=== PATIENT | female | born 1995 | race Caucasian/White ===

== ENCOUNTER 2017-09-03 13:30 | Inpatient (IN) | payer BC, MEDICAID, SELFPAY ==
[2017-09-03] MEDS: 0.9% Saline Lock 10 ML Syringe IV (16:15)
[2017-09-03 16:35] LABS: Hematocrit 32.7 % (37-47); Hemoglobin 10.7 g/dl (12.0-15.0); Mean Corp Hgb Conc 32.7 g/gl (32-36); Mean Corpuscular Hgb 25.9 pg (27.0-32.0); Mean Corpuscular Volume 79.2 fL (81-99); Mean Platelet Vol. 10.6 fl (6.2-12.0); Platelet Count 186 K/mm3 (150-450); RBC Distribution Width CV 16.7 % (11.6-14.6); Red Blood Count 4.13 M/mm3 (4.2-5.4); Scan Indicated on CBC? Y/N NO
[2017-09-03 16:43] VITALS: BMI 47.5
[2017-09-03 16:44] LABS: International Normalized Ratio 0.9; Prothrombin Time (Protime)PT. 12.6 SECONDS (11.7-14.9)
[2017-09-03 16:45] LABS: Partial Thromboplast Time 24.7 Seconds (24.1-36.2)
[2017-09-03 16:48] LABS: Protein, Urine (Random) 32.7 mg/dL (<11.9); Protein:Creat Ratio 151 mg/g CRE (0-200)
[2017-09-03 16:49] LABS: AST(SGOT) 20 U/L (15-37); Alanine Aminotransfer ALT/SGPT 21 U/L (13-56); EST Glomerular Filtration Rate 110 mL/min (>60); Est Glom Filt Rate - Afr Amer 133 mL/min (>60); Estimated Creatinine Clearance 89.78 ml/min; Uric Acid 5.5 mg/dL (2.6-6.0)
[2017-09-03] MEDS: miSOPROStol 25 MCG TABLET VAGINAL ×2 (18:52→23:00)
--- NOTE | 2017-09-03 19:56 | PCM.HP.OB ---
History Date of Admission: 09/03/17 Final JIM: 09/09/17 Gestational age: 39 Weeks and 1 Days History of this : This is a 22 year-old, G [], P [], at 39 weeks gestational age. Medical History: Medical History (Last Updated 09/03/17 @ 20:01 by Noah Campo) Anemia D64.9 Asthma J45.909 Depression F32.9 Inflammatory bowel disease K52.9 anemia Allergies No Known Allergies Allergy (Verified 09/03/17 16:38) Home Medications: Home Medications Vits [Prenatabs FA] 1 tablet PO DAILY 02/09/17 Cetirizine HCl [Zyrtec] 10 mg PO DAILY 09/03/17 Ferrous Sulfate 325 mg PO DAILY@0800 09/03/17 Smoking Status: Former smoker Alcohol: None Number of Fetus(es): 1 Heart Tracin with mod variability, accels TOCO Analysis: Irregular History Past Pregnancies: Past Pregnancies Delivery Date Name GA/Weeks Outcome Route Weight Infant Gender Labor Length Anesthesia Delivery Location Provider FOB Labs: GBS negative see [facility] H&P for complete list Physical Exam General: Alert, Oriented x3 Abdomen: Soft, Non Tender, Non-Distended, Gravid Cervix Dilation (cm): 0.5 Station: -3 Effacement (%): 40 Assessment/Plan All Active Problems Bronchospasm, acute (Acute) 22yo female at 39&1 with gestational hypertension Admit to L&D Induction - vaginal cytotec PreE labs reviewed GBS negative Routine care
[2017-09-04] VITALS (12 sets, daily range): BP systolic 106–133; BP diastolic 62–89; PULSE 94–130; RESP 16–20; TEMP 36.6–38.2; O2SAT 96–99
[2017-09-04] MEDS: Acetaminophen 325 MG Tablet PO ×2 (01:00→09:10)
[2017-09-04] MEDS: miSOPROStol 25 MCG TABLET VAGINAL (03:16)
[2017-09-04] MEDS: Nalbuphine 10 MG/ML Ampul IV ×2 (04:17→10:03)
[2017-09-04] MEDS: Ondansetron 4 MG/2 ML Vial IV ×2 (06:39→17:52)
[2017-09-04] MEDS: 0.9% Saline Lock 10 ML Syringe IV (06:40)
[2017-09-04] MEDS: 0.9% Normal Saline 100 ML IV.SOLN. INTRA-UTER (08:20)
[2017-09-04] MEDS: Lactated Ringers 1,000 ML 50 ML IV ×4 (08:20→16:12)
[2017-09-04] MEDS: Oxytocin 30 units/NS 500 ml 30 UNITS/500 ML IV.SOLN IV (08:20)
--- NOTE | 2017-09-04 08:40 | PCM.PN.BLA ---
Progress Note pt seen at bedside, cervical MEHTA placed for Induction and will start pitocin. pt tolerated well.
--- NOTE | 2017-09-04 12:06 | PCM.PN.BLA ---
Progress Note pt seen at bedside, AROM performed- Clear. /-2. IFM and IUPC placed. Continue pitocin at this time. FHR 135 mod variability category 1 and reactive. Contractions irregular.
--- NOTE | 2017-09-04 17:30 | PN_ITS ---
Progress Note pt seen at bedside and evaluated- /-2 with caput and meconium noted. Pt has had unchanged cervical exam for 5.5 hours- fetus and mother are stable at this time- will recheck patient at 7pm if still no change will proceed with C /S. Pt and were counseled and agree with plan. Will give ANCEF 3g and Zitrhomax 500mg IV x 1.
--- NOTE | 2017-09-04 17:57 | PCM.PN.BLA ---
Progress Note pt with persistent late decelerations, moderate variability despite position changes and pitocin being held. Cervical exam unchanged- will proceed with Primary cs for category 2 FHR and Arrest of dilation.
[2017-09-04] MEDS: Oxytocin 30 units/NS 500 ml 30 UNITS/500 ML IV.SOLN 167 UNITS IV (18:17)
--- NOTE | 2017-09-04 18:47 | PCM.OB.CSR ---
Delivery Classification: NESTOR Final JIM: 09/09/17 Gestational age: 39 Weeks and 2 Days Indications: Arrest of dilation and FHR Category 2 tracing, meconium fluid Indications for : Failure to Progress, Nonreassuring Status Description of Procedure: Surgeon: Dr. Lola Angeles Auditor Tax:CARMEN Pacheco Procedure Performed: Primary Low Transverse section Preoperative diagnosis: Arrest of dilation, Category 2 FHR recurrent late decelerations, Meconium fluid Postoperative diagnosis: same, Live female Findings: Live female infant born at 1817, apgars weight 7lb 12oz. Meconium fluid Anesthesia:epidural Complications: None Estimated blood loss:800 Implantable devices: None Operative note: After informed consent was obtained the patient was taken the operating room she was given spinal anesthesia. She was then placed in the supine position. She was prepped and draped in the normal sterile fashion. Anesthesia was found to be adequate. At this time a Pfannenstiel skin incision was made with a knife was carried down to the underlying layer of the fascia. The fascial incision was then extended laterally using curved Richey scissor. Tensions was then turned to the superior aspect of the fascial edge was grasped with 2 straight [place] clamps tented up and the rectus muscle dissected off sharply using curved Richey scissor. Attention was then turned to the inferior aspect where again [place] clamps were placed in the rectus muscles were tented up and the fascia was dissected off sharply using the curved Richey scissor. Rectus muscles were then in the midline bluntly and peritoneum was entered bluntly. Gentle opposing traction was placed. At this time the vesicouterine peritoneum was identified. Scalpel was used to make a uterine incision in a low transverse fashion. The uterus was then entered bluntly gentle opposing traction was placed to extend this incision. Meconium fluid noted. 's head was brought to the uterine incision was delivered atraumatically. Cord was clamped and cut infant was handed to the waiting nursery team. The Placenta was removed from the uterus. The uterus remained in the abdominal cavity. The uterus was cleared of all clots and debris using a lap. At this time the uterine incision was reapproximated using #1 Vicryl in a running locked fashion followed by a second imbricating layer using 1-0 vicryl. Hemostasis was appreciated. Gutters were cleared of all clots and debris. Uterine incision was reevaluated and noted to be of excellent hemostasis. Bobby placed. At this time the peritoneum was grasped with Kellys reapproximated using #2 Vicryl suture in a running fashion. Muscles then reapproximated using #2 Vicryl in a interrupted mattress suture fashion. Bobby placed. Fascia was then reapproximated using #1 Vicryl in a running fashion. Subcu layer was reapproximated with #2 0 plain gut suture in an interrupted fashion. Subcu layer was closed using 4-0 Monocryl in a subcu fashion. Dry sterile dressing was applied. Instrument lap needle count correct ?2. Anticipated normal postoperative course. Amniotic Membrane Rupture Type: Artificial Amniotic Fluid Description: Moderate meconium Placenta Disposition: Routine to Lab Drain: Anderson to straight drain Cord Entanglement: None Esitmated Blood Loss (ml): 800 Infant Gender: Female (1 minute): 3 (5 minute): 9 - 10 min 9 Delayed cord clamping: No Pre-op Antibiotic Given: - - ancef 3g and zithromax 500mg Pt instructed on risks of surgery: Bleeding, Anesthesia Risks, Infection, Injury to surrounding structure(s) including bowel and bladder Complications: None - Admit VTE Documentation VTE Present on Admission: Yes VTE Mechan Device Prophylaxis: SCD's VTE Pharm Prophylaxis ordered?: Yes
[2017-09-04] MEDS: fentaNYL-bupivacaine (epidural) 100 ML BAG EPIDURAL (20:00)
[2017-09-04] MEDS: DiphenhydrAMINE 25 MG Capsule PO (21:30)
[2017-09-04] MEDS: Lactated Ringers 1,000 ML 100 ML IV (21:33)
[2017-09-05] VITALS (19 sets, daily range): BP systolic 115–126; BP diastolic 68–88; PULSE 70–107; RESP 16–20; TEMP 36.6–37.3; O2SAT 97–100
[2017-09-05] MEDS: Ketorolac 30 MG/ML Syringe IV ×3 (01:13→12:38)
[2017-09-05] MEDS: Nalbuphine 10 MG/ML Ampul 5 MG IV ×2 (02:51→02:58)
[2017-09-05 05:11] LABS: Hematocrit 28.8 % (37-47); Hemoglobin 9.2 g/dl (12.0-15.0); Mean Corp Hgb Conc 31.9 g/gl (32-36); Mean Corpuscular Hgb 25.9 pg (27.0-32.0); Mean Corpuscular Volume 81.1 fL (81-99); Mean Platelet Vol. 10.9 fl (6.2-12.0); Platelet Count 186 K/mm3 (150-450); RBC Distribution Width SD 48.5 fl (35.1-43.9); Red Blood Count 3.55 M/mm3 (4.2-5.4); Scan Indicated on CBC? Y/N NO; White Blood Count 12.9 K/mm3 (4.4-11.0)
[2017-09-05] MEDS: Enoxaparin 40 MG/0.4 ML Syringe SC (06:28)
--- NOTE | 2017-09-05 06:37 | NURSING ---
0430 epidural cath removed, blue tip intake. Pericare done, net panties applied, mom lifting buttocks multiple times.
[2017-09-05] MEDS: Lactated Ringers 1,000 ML 100 ML IV (07:33)
--- NOTE | 2017-09-05 08:02 | PCM.PN.OB ---
Subjective: pt seen at bedside, doing well. pt reports good pain control. lochia mild. Denies CP, SOB, Dizziness. - Physical Exam General: Alert, Oriented x3 Abdomen: Soft, Non-Distended, - - fundus firm. dressing dry and intact Extremities: No Calf Tenderness Vital Signs Temp Pulse Resp BP Pulse Ox 98.2 F 98 16 120/75 100 09/05/17 04:00 09/05/17 06:34 09/05/17 06:34 09/05/17 04:00 09/05/17 06:34 Oxygen Delivery Method Room Air Weight: 110.3 kg Body Mass Index (BMI) 47.5 Intake and Output for Last 24 Hours 09/03/17 09/04/17 09/05/17 23:59 23:59 23:59 Intake Total 500 / 500 1800 / 1800 1563 / 1563 Output Total 600 / 600 1100 / 1100 850 / 850 Balance -100 / -100 700 / 700 713 / 713 Laboratory Tests Past 24 Hrs 09/05/17 04:55 WBC 12.9 H RBC 3.55 L Hgb 9.2 L Hct 28.8 L MCV 81.1 MCH 25.9 L MCHC 31.9 L RDW 17.0 H RDW Differential 48.5 H Plt Count 186 MPV 10.9 Medical Necessity - Tobacco Use Smoking Status: Former smoker Assessment/Plan All Active Problems (Last Updated 09/03/17 @ 20:01 by Noah Campo) Bronchospasm, acute (Acute) POD#1, doing well routine care pain mgmt ambulation joan mari
[2017-09-05] MEDS: DiphenhydrAMINE 25 MG Capsule PO (10:32)
--- NOTE | 2017-09-05 18:40 | NURSING ---
mari removed with 1200 cc
[2017-09-05] MEDS: oxyCODONE 5 MG Tablet PO ×2 (18:46→23:44)
[2017-09-05] MEDS: Ibuprofen 600 MG Tablet PO (20:55)
[2017-09-05] MEDS: Senna/Docusate Sodium 1 Tablet PO (23:44)
[2017-09-06 02:20] VITALS: BP 137/85; PULSE 100; RESP 20; TEMP 35.6
--- NOTE | 2017-09-06 02:29 | NURSING ---
lg amount of urine missed hat
[2017-09-06] MEDS: Ibuprofen 600 MG Tablet PO (05:09)
[2017-09-06] MEDS: oxyCODONE 5 MG Tablet PO (05:09)
[2017-09-06] MEDS: Enoxaparin 40 MG/0.4 ML Syringe SC (05:10)
--- NOTE | 2017-09-06 07:29 | NURSING ---
report given to Sylvain
[2017-09-06 08:57] VITALS: BP 123/77; PULSE 95; RESP 16; TEMP 37.1; O2SAT 99
--- NOTE | 2017-09-06 09:01 | PCM.PN.OB ---
Subjective: pt seen at bedside, doing well. pt reports good pain mgmt. lochia mild. breast feeding. passing flatus. - Physical Exam General: Alert, Oriented x3 Abdomen: Soft, Non-Distended, Gravid, - - fundus firm, dressing dry and intact Extremities: No Calf Tenderness Vital Signs Temp Pulse Resp BP Pulse Ox 98.7 F 95 16 123/77 H 99 09/06/17 08:57 09/06/17 08:57 09/06/17 08:57 09/06/17 08:57 09/06/17 08:57 Oxygen Delivery Method Room Air Weight: 110.3 kg Body Mass Index (BMI) 47.5 Intake and Output for Last 24 Hours 09/04/17 09/05/17 09/06/17 23:59 23:59 23:59 Intake Total 1800 / 1800 3333 / 3333 Output Total 1100 / 1100 3300 / 3300 100 / 100 Balance 700 / 700 33 / 33 -100 / -100 Medical Necessity - Tobacco Use Smoking Status: Former smoker Assessment/Plan All Active Problems (Last Updated 09/03/17 @ 20:01 by Noah Campo) Bronchospasm, acute (Acute) pod#2, doing well routine care pain mgmt ambulation dc home
[2017-09-06 09:09] VITALS: BP 123/77; PULSE 95; RESP 16; TEMP 37.1; O2SAT 99
--- NOTE | 2017-09-06 09:09 | DCINST_ITS ---
Discharge Diet: No Restrictions Discharge Activity: Return to Normal Activity, May Not Drive - for 2 weeks, May not drive while taking narcotic pain medications., May Shower, May Take a Tub Bath - in 7 days. May resume sexual activity in: 4-6 weeks Lifting Restrictions: 20 pounds Additional Activity Instructions:: Nothing in the vagina for 4-6 weeks. You may return to work/school in 6 weeks. Call your doctor if your incision/area has: Continuous Slow Oozing, Sudden Increased Bleeding, Increased Pain/ Swelling, Increased Redness, Foul Smelling Discharge Call your doctor if you observe: Fever of 101 or Higher, Using more than one pad per hour - for 2 hours Suture Line Care: Avoid Pulling/Pushing, Avoid Pinching/Bending Cleanse incision/area with: Keep Dressing Clean & Dry Additional Instructions: If you experience any of the following, contact your healthcare provider. * Bleeding that soaks a pad every hour for 2 hours * Fever 100.4 or higher * Unrelieved incision or abdominal pain * Swelling, redness, discharge or bleeding from your incision or episiotomy site * Your incision begins to separate * Problems urinating (including inability to urinate or burning while urinating) . * Visual changes * Severe headache * Flu-like symptoms * Pain or redness in one of both of your breasts * Pain, warmth, tenderness or swelling in your legs, especially the calf area * Frequent nausea and vomiting * Symptoms of depression or anxiety If you experience any of the following, call 911 or go to the nearest Emergency Room. * Chest pain * Problems breathing * Seizure activity * Partial or complete paralysis of a body part, slurred speech, weakness or drooping of the face, or a sudden inability to walk or hold your balance Allergies/Adverse Reactions: Allergies No Known Allergies Allergy (Verified 09/03/17 16:38) Medications to take at Discharge Vits [Prenatabs FA ] 1 tablet PO DAILY 02/09/17 Cetirizine HCl [Zyrtec] 10 mg PO DAILY 09/03/17 Ferrous Sulfate 325 mg PO DAILY@0800 09/03/17 Ibuprofen [Motrin] 800 mg PO Q8H PRN PRN #30 tab 09/06/17 Oxycodone HCl/Acetaminophen [Percocet 5/325] 1 tab PO Q6H PRN PRN 7 Days #28 tab 09/06/17 Senna/Docusate Sodium [Senokot-S] 1 tab PO DAILY PRN #30 tab 09/06/17 SimETHICONE [Mylicon] 80 mg PO PCHS PRN #30 tab 09/06/17 The following prescriptions were given: Oxycodone HCl/Acetaminophen [Percocet 5/325] 1 tab PO Q6H PRN PRN 7 Days #28 tab PRN Reason: Pain Ibuprofen [Motrin] 800 mg PO Q8H PRN PRN #30 tab PRN Reason: Pain Senna/Docusate Sodium [Senokot-S] 1 tab PO DAILY PRN #30 tab PRN Reason: Constipation SimETHICONE [Mylicon] 80 mg PO PCHS PRN #30 tab PRN Reason: Indigestion/stomach pain Follow-Up: Call to make an appointment with your doctor for an incision check in 1-2 weeks. You will also need a 6 week post- follow up appointment. Please Follow Up With: Lola Angeles MD - Call to make an appointment for an incision check in 1-2 [phone] When: You will need a post- check in 6 weeks. Primary Care Physician: Jackson Peterson III, MD [Primary Care Provider] -
[2017-09-06] MEDS: Acetaminophen 500 MG Tablet 1000 MG PO (10:09)
[2017-09-06 11:13] VITALS: BP 123/70; PULSE 93; RESP 16; TEMP 36.9; O2SAT 100
--- NOTE | 2017-09-06 18:47 | PCM.DC.BLA ---
Discharge Summary Date of Admission: 09/03/17 Date of Discharge: 09/06/17 Summary: This is a 22-year-old female that was admitted to [facility] on September 03, 2017 for induction of labor due to gestational hypertension. Patient received Cytotec and then Pitocin with a Anderson bulb. Patient progressed to 5 cm 80% effaced -2 station. Patient had repetitive late decelerations and arrest of dilatation she underwent a primary low transverse section on 09/04/[address] Monroe. Procedure was uncomplicated. She had normal postoperative course. Blood pressures were well controlled. Patient was discharged home on postoperative day #2 on 09/06/2017.
== END 2017-09-06 10:50 | disposition home or self-care (01) | DRG 765 ==
PROVIDERS: Obstetrics & Gynecology; Admitting Provider Obstetrics & Gynecology; Family Provider Family Medicine; PCP Family Medicine; Visit Provider Obstetrics & Gynecology
DX: O13.4 Gestational [pregnancy-induced] hypertension without significant proteinuria, complicating childbirth (principal); Z68.42 Body mass index [BMI] 45.0-49.9, adult; O62.0 Primary inadequate contractions; O77.0 Labor and delivery complicated by meconium in amniotic fluid; O76 Abnormality in fetal heart rate and rhythm complicating labor and delivery; O99.214 Obesity complicating childbirth; E66.01 Morbid (severe) obesity due to excess calories; O99.02 Anemia complicating childbirth; O99.344 Other mental disorders complicating childbirth; F32.9 Major depressive disorder, single episode, unspecified; F41.9 Anxiety disorder, unspecified; J45.909 Unspecified asthma, uncomplicated; K21.9 Gastro-esophageal reflux disease without esophagitis; Z79.899 Other long term (current) drug therapy; Z87.891 Personal history of nicotine dependence; Z3A.39 39 weeks gestation of pregnancy; Z37.0 Single live birth
CPT/HCPCS: 59025; 59050; 82565; 82570; 84156; 84450; 84460; 84550; 85027; 85610; 85730; 86850; 86900; 99218; J7120; A4216; G0378; J2405

== ENCOUNTER 2017-09-16 11:35 | Outpatient (CLI) | payer BC, MEDICAID, SELFPAY | END 2017-09-16 12:35 | disposition home or self-care (01) | LOC: WPOUT 11:38 → WP 11:38 | PROVIDERS: Family Provider Family Medicine; PCP Family Medicine; Visit Provider Obstetrics & Gynecology | DX: Z39.1 Encounter for care and examination of lactating mother (principal) | CPT/HCPCS: 96152 ==

== ENCOUNTER 2017-09-19 14:10 | Outpatient (CLI) | payer BC, MEDICAID, SELFPAY | END 2017-09-19 15:20 | disposition home or self-care (01) | LOC: WPOUT 14:16 → WP 14:17 | PROVIDERS: Family Provider Family Medicine; PCP Family Medicine; Visit Provider Obstetrics & Gynecology | DX: Z39.1 Encounter for care and examination of lactating mother (principal) | CPT/HCPCS: 96152 ==

== ENCOUNTER 2018-01-11 12:09 | Day surgery (SDC) | payer BC, SELFPAY ==
[2018-01-11] VITALS (9 sets, daily range): BP systolic 103–125; BP diastolic 60–88; PULSE 68–89; RESP 16–18; TEMP 36.3–37.1; O2SAT 93–100; BMI 44.6
--- NOTE | 2018-01-11 12:29 | EKG12_ITS ---
Test Reason : PRE OP Blood Pressure : / mmHG Vent. Rate : 087 BPM Atrial Rate : 087 BPM P-R Int : 158 ms QRS Dur : 072 ms QT Int : 364 ms P-R-T Axes : 022 003 002 degrees QTc Int : 438 ms Normal sinus rhythm Normal ECG No previous ECGs available Confirmed by KASIA FLOYD, CHACHO ([id number]), web editor JAIRO PATEL ([id number]) on 01/15/2018 8:39:31 AM Referred By: Gissel Ceja Confirmed By:CHACHO PEDROZA MD
[2018-01-11 12:46] LABS: Internal QC Validated? YES +Cl - CLEAR BKGD; Pregnancy, Urine Negative Negative
[2018-01-11 13:19] LABS: Hematocrit 37.5 % (37-47); Hemoglobin 12.1 g/dl (12.0-15.0); Mean Corp Hgb Conc 32.3 g/gl (32-36); Mean Corpuscular Hgb 25.8 pg (27.0-32.0); Mean Platelet Vol. 10.5 fl (6.2-12.0); Platelet Count 258 K/mm3 (150-450); RBC Distribution Width CV 15.5 % (11.6-14.6); RBC Distribution Width SD 44.7 fl (35.1-43.9); Red Blood Count 4.69 M/mm3 (4.2-5.4); White Blood Count 7.1 K/mm3 (4.4-11.0)
[2018-01-11 13:20] LABS: Scan Indicated on CBC? Y/N NO
--- NOTE | 2018-01-11 13:45 | GALL_PTH ---
PATIENT: ДМИТРИЙ CAMPO AUGUST LOC: [facility] U#:[id number] AGE/SX: 22/F ROOM: RE01/11/[address]: Dr. Gissel Ceja MD : [id number] BED: DIS: 01/11/2018 SPEC #: [id number] RECD: 01/11/18 16:02 STATUS: RONNIE MARY #: [id number] SJ: 01/11/18 13:[address]: Gissel Ceja DEPT: SURGICAL PATHOLOGY RECD BY: Yasmani Rico ENTERED: 01/12/18 09:20 SP TYPE: HARJINDER GREENE DR: Dr. Jackson Peterson III, MD Tissues: Gallbladder, NOS Procedures: Surgery Specimen Level III HEADER OPERATION: Laparoscopic, cholecystectomy with IOC PRE-OP DIAGNOSIS: Epigastric abdominal pain, abnormal biliary HIDA scan, morbid obesity TISSUE SUBMITTED: Gallbladder MICROSCOPIC DIAGNOSIS Gallbladder: Chronic cholecystitis and cholesterolosis. No stones are identified in the container or in the gallbladder. CLAUDIO:russ 01/13/18 MICROSCOPIC DESCRIPTION Slides are reviewed. GROSS DESCRIPTION Received is one container labeled with the patient's name and designated gallbladder. The specimen consists of a gallbladder measuring 6 cm in length and up to 3 cm in diameter. The external surface is pink-stacy, smooth and glistening for the most part. Focally it is granular, hemorrhagic and contains cautery artifact. The gallbladder contains green-yellow mucoid bile. No stones are identified in the container or in the gallbladder. The mucosa also shows several yellowish streaks consistent with cholesterolosis. The mucosa is bile-stained and without any mass lesions. The gallbladder wall measures up to 0.2 cm in thickness. Other Wood Processing Machine Operator sections from the gallbladder and the cystic duct are submitted in one cassette. / CLAUDIO:russ 01/12/18 TC:3 CPT: 11202
[2018-01-11] MEDS: Cefazolin 2 GM in 0.9% Normal Saline 100 ML IV (14:13)
--- NOTE | 2018-01-11 14:17 | OP.PN_ITS ---
Immediate Post-Op Note Date of Procedure: 01/11/18 Primary Surgeon/Physician: Gissel Ceja process environmental technician: Douglas Pacheco Pre-Operative Diagnosis: cholelithiasis Post-Operative Diagnosis: cholelithiasis, cholecystitis Surgery/Procedure Performed:: laparoscopic cholecystectomy with cholangiograms Description of Surgical Findings:: normal intraoperative cholangiograms, cholelithiasis, cholecystitis Estimated Blood Loss: < 10 ml Specimen's removed: gallbladder and contents Type of Anesthesia:: General ASA Class: ASA3 Severe Disease - Admit VTE Documentation VTE Present on Admission: Yes VTE Mechan Device Prophylaxis: SCD's
--- NOTE | 2018-01-11 14:20 | DCINST_ITS ---
Discharge Diet: No Restrictions Discharge Activity: Return to Normal Activity, May not drive while taking narcotic pain medications. Lifting Restrictions: no lifting greater than 20 pounds for two weeks Call your doctor if your incision/area has: Continuous Slow Oozing, Foul Smelling Discharge Call your doctor if you observe: Fever of 101 or Higher Additional Dressing/Incision Instructions:: Leave dressings in place. May get wet in shower. Do not soak - no tub baths/swimming Allergies/Adverse Reactions: Allergies No Known Allergies Allergy (Verified 01/04/18 14:14) Medications to take at Discharge RX: Vits [Prenatabs FA ] 1 tablet PO DAILY 02/09/17 RX: Cetirizine HCl [Zyrtec] 10 mg PO DAILY 09/03/17 RX: Ferrous Sulfate 325 mg PO DAILY@0800 09/03/17 Acyclovir [Zovirax] 400 mg PO BID 01/04/18 RX: Citalopram [Celexa] 40 mg PO DAILY 01/04/18 Hydrocodone Bitart/Apap 5-325 [[place] 5MG-325MG] 1 tab PO Q8H PRN PRN 5 Days #15 tab 01/11/18 The following prescriptions were given: Hydrocodone Bitart/Apap 5-325 [[place] 5MG-325MG] 1 tab PO Q8H PRN PRN 5 Days #15 tab PRN Reason: Pain Primary Care Physician: Jackson Peterson III, MD [Primary Care Provider] - Test Results: Test results from this visit will be discussed in further detail at your follow- up appointment, if applicable. Please Follow Up With: Gissel Ceja MD - call When: to be seen in 7-10 days, please call for date and time, thank you
--- NOTE | 2018-01-11 14:32 | RAD_ITS ---
CLINICAL HISTORY: Female, 22 years old. Pain. PROCEDURE: CHOLANGIOGRAM - interoperative FLUOROSCOPY TIME (if supplied): ( ) minutes/seconds TECHNIQUE: A single intraoperative image was presented for interpretation. The study demonstrates surgical instruments overlying the shana hepatis. There is contrast injected via the cystic duct stump. Intrahepatic ducts, common hepatic duct and common bile duct are normal in diameter and appearance. There is no evidence of filling defect stricture or dilatation. There is free spillage of contrast into the duodenum. Please refer to the operative report for further details. RAD/Cholangiogram/ O R,Initial IMPRESSION: Operative cholangiogram in the OR. Electronically Signed: Melchor Rocha DO at 16:02 EST Tel [phone], Service support ,
[2018-01-11] MEDS: Bupiv/Epi 0.5% Mpf 30 ML Vial (15:13)
--- NOTE | 2018-01-11 15:16 | PCM.OPRPT ---
Report of Operation Date of Procedure: 01/11/18 Pre-Operative Diagnosis: cholelithiasis Post-Operative Diagnosis: cholelithiasis, cholecystitis Surgery/Procedure Performed:: laparoscopic cholecystectomy with cholangiograms Description of Surgical Findings:: normal intraoperative cholangiograms, cholelithiasis, cholecystitis electrical maintenance mechanic: Douglas Pacheco Type of Anesthesia:: General Anesthesiologist: Deana Shah Specimen's removed: gallbladder and contents Estimated Blood Loss (mL): < 10 ml Fluids Replaced: 1000 ml RL Description of Procedure: After informed consent was given, the patient was brought to the Operating Room. Appropriate time out protocol was followed. She was then placed in the supine position. The patient was then placed under general endotracheal anesthesia. The abdomen was then prepped with a sterile surgical skin preparation and sterile surgical drapes were placed. A skin fold was grasped with penetrating clamps and the skin and subcutaneous tissues were infiltrated with 0.5% marcaine with epinephrine. A skin incision was then made with a 15 blade scalpel. The anterior abdominal wall was elevated and a Veress needle was carefully inserted into the intraabdominal cavity. It was checked to be in the proper position with a normal saline drop test. A CO2 pneumoperitoneum was then created. Once this was achieved, then the Veress needle was removed and an 11mm trocar was placed in its stead. A 10mm laparoscope was then inserted into the trocar and careful attention was directed to the intraabdominal contents. There was no evidence of injury to any intraabdominal organs from insertion of the Veress needle or the trocar. Under direct visualization, a 5mm subxiphoid trocar and two lateral 5mm right subcostal trocars were placed. The skin and subcutaneous tissues at these sites were infiltrated with 0.5% marcaine with epinephrine prior to placement of these trocars. Attention was then directed to the right upper quadrant of the abdomen. Graspers were placed in the lateral trocars to grasp the distal aspect of the gallbladder and direct it cephalad and to grasp the gallbladder at Pleitez?s pouch and direct it laterally. Dissection then began on the proximal gallbladder continuing down to the area of the triangle of Calot to bluntly dissect out the cystic duct. The neck of the gallbladder was identified and blunt dissection continued to dissect out a segment of the cystic duct. A clip was then placed on the neck of the gallbladder. A small ductotomy was then made. A Ranfac catheter was brought in through a separate skin incision and placed into the cystic duct. An intraoperative cholangiogram was performed under fluoroscopy. The xray revealed no lesions in the common bile duct, arborization of the biliary tree, and good flow into the duodenum. The Ranfac catheter was then removed and two clips were placed proximal to the ductotomy and the cystic duct was then transected. The cystic artery was visualized and bluntly isolated and then two clips were placed proximally and one clip distally and then it was transected between the proximal and distal clips. The gallbladder was then from the liver bed using electrocautery and thus able to be brought out of the umbilical port. It was then forwarded to pathology for analysis. The liver bed was carefully examined. There was no evidence of bile leakage or bleeding. The cystic duct stump and cystic artery stump had their clips intact and there was no evidence of bile leakage or bleeding. The remainder of the abdomen was grossly normal. The CO2 was released and all trocars removed intact. The periumbilical fascia was approximated with a [id number] 0 vicryl suture. All skin incision were closed with 4-0 monocryl in a subdermal fashion. Cavilol and Steristrips were used to reinforce the skin closure. Sterile dressings were applied to all wounds. The patient was extubated and brought to the Recovery Room in stable condition. - Complications none noted - Admit VTE Documentation VTE Present on Admission: Yes VTE Mechan Device Prophylaxis: SCD's
[2018-01-11] MEDS: HYDROcodone Bitartrate/Apap 5/325 Tablet PO (17:30)
== END 2018-01-11 18:10 | disposition home or self-care (01) ==
LOC: SDC 12:10 → AC 12:11
PROVIDERS: Anesthesiology; Family Provider Family Medicine; PCP Family Medicine; Referring Provider Surgery; Visit Provider Surgery
PROC: (CPT 47610; principal; 2018-01-11 13:25)
DX: K81.1 Chronic cholecystitis (principal); D50.9 Iron deficiency anemia, unspecified; K58.9 Irritable bowel syndrome, unspecified; M19.90 Unspecified osteoarthritis, unspecified site; J45.909 Unspecified asthma, uncomplicated; K21.9 Gastro-esophageal reflux disease without esophagitis; F90.9 Attention-deficit hyperactivity disorder, unspecified type; F32.9 Major depressive disorder, single episode, unspecified; F41.9 Anxiety disorder, unspecified; E66.01 Morbid (severe) obesity due to excess calories; Z68.41 Body mass index [BMI] 40.0-44.9, adult; Z79.899 Other long term (current) drug therapy; Z87.442 Personal history of urinary calculi
CPT/HCPCS: 00790; 47563; 74300; 76000; 81025; 85027; 88304; 93005; J7120; J2405

== ENCOUNTER → 2018-05-03 14:06 | Outpatient (CLI) | payer BC, OTHER, SELFPAY ==
[2018-04-28 16:17] VITALS: BMI 44.6
--- NOTE | 2018-05-03 14:10 | BI_ITS ---
MAMMOGRAPHY - BILATERAL DIAGNOSTIC REASON FOR EXAM: Female, 23 years old. Pain along the upper half of the right breast. Recent nursing. PERTINENT HISTORY: Grandmother with breast cancer. TECHNIQUE: Digital bilateral breast annabel (3D mammographic acquisition) in the CC and MLO projections. 2-D mediolateral oblique (MLO) and craniocaudad (CC) views of both breasts were obtained. CAD: Full Field Digital Mammography with Computer Added Detection was performed. COMPARISON: None. Baseline examination. FINDINGS: Breast Composition: There are scattered areas of fibroglandular density. There are no dominant masses or suspicious calcifications. No other significant abnormalities are identified. BI/DIAG MAMM W/CAD, BILAT IMPRESSION: Negative diagnostic mammogram. With the patient's history of right breast pain, correlation with ultrasound is recommended. ASSESSMENT CATEGORY: BIRADS Category 0: Incomplete. Need additional imaging evaluation. A letter regarding these results will be sent to the patient by the facility within 30 days. Approximately 10% of breast cancers are not detected by mammography. A normal mammogram should not delay biopsy of a clinically suspicious abnormality. Electronically Signed: Mukesh Almanzar MD at 16:01 EST , Service support ,
--- NOTE | 2018-05-03 14:12 | US_ITS ---
STUDY: ULTRASOUND BREAST - RIGHT REASON FOR EXAM: Female, 23 years old. Pain in the right breast. TECHNIQUE: Axial and longitudinal images of the RIGHT breast were performed with a high resolution ultrasound transducer. COMPARISON: Comparison is made with prior mammogram done earlier in the day. FINDINGS: RIGHT Breast: The upper half of the right breast was examined by ultrasound. There is homogeneous fibroglandular tissue. No solid or cystic mass lesion is seen. US/Breast Limited Unilateral IMPRESSION: No sonographic abnormality is seen. ASSESSMENT CATEGORY: BIRADS Category 1: Negative. A letter regarding these results will be sent to the patient by the facility within 30 days. Electronically Signed: Mukesh Almanzar MD at 15:56 EST , Service support ,
== END ==
PROVIDERS: Referring Provider Obstetrics & Gynecology; Visit Provider Obstetrics & Gynecology
DX: N64.4 Mastodynia (principal); Z80.3 Family history of malignant neoplasm of breast
CPT/HCPCS: 76642; 77062; 77066; G0279

== ENCOUNTER 2020-03-19 17:05 | Emergency (ER) | payer OTHER, SELFPAY ==
[2018-07-28 15:19] VITALS: BMI 44.6
[2020-03-19 17:06] VITALS: BP 150/89; PULSE 103; RESP 18; TEMP 35.5; O2SAT 99; BMI 44.9
--- NOTE | 2020-03-19 17:33 | EKG12_ITS ---
Test Reason : PALPS Blood Pressure : / mmHG Vent. Rate : 091 BPM Atrial Rate : 091 BPM P-R Int : 160 ms QRS Dur : 068 ms QT Int : 350 ms P-R-T Axes : 032 -02 -02 degrees QTc Int : 430 ms Normal sinus rhythm Moderate voltage criteria for LVH, may be normal variant Borderline ECG Confirmed by NELL FLOYD, SAI ([id number]), newspaper editor managing RIANA SHIPMAN ([id number]) on 03/21/2020 8:21:31 AM Referred By: SIM Confirmed By:SAI CAMEJO MD
--- NOTE | 2020-03-19 17:35 | ED.VISSUMM ---
- ER Visit Summary Date of Service: 03/19/20 Chief Complaint: Palpitations History of Present Illness: The patient is a 25 F presenting with palpitations. She states this started 2 days ago. She tested positive for Covid 2 weeks ago. She states that she has had chills with no fever today. She has had shortness of breath and cough. She has had diarrhea. She has had headache. She states she has had rapid heart rate and pain with deep inspiration. Her sister recently also had Covid and had a PE. She denies other PE/DVT risk factors. Physical Examination: Vitals are stable. Heart rate 103. Patient is afebrile. Alert no acute distress. 99% on room air HEENT exam is unremarkable. Neck is supple. Lungs are clear and equal bilaterally. Heart is regular and tachycardic Abdomen is soft nontender nondistended. Extremities are unremarkable. Skin is warm and dry. No focal neurologic deficit. Remainder of exam is unremarkable. Emergency Department Course and Treatment: Patient was given IV fluids. EKG is sinus rhythm rate of 91 with no acute ischemic changes. CBC normal except hemoglobin 10.4. Chemistries unremarkable. Troponin is negative. hCG negative. CTA chest was obtained and shows normal CTA chest examination, without a demonstrated pulmonary embolism or arterial dissection. Small areas of mild bilateral inflammatory infiltrates in the lungs. Her ambulatory pulse ox is 98% on room air. Her resting heart rate is 89. She is resting comfortably on reevaluation. She is started on Decadron. She has a pulse oximeter she can monitor her pulse ox at home. Advised to return to the ED for worsening complaints. Disposition: Discharge home Impression: Palpitations, COVID-19 This note was generated with [email or web address] dictation software. It may contain incorrect words, spelling, and punctuation that were not noted in review of the chart prior to signing ED Disposition - Plan for ED Patient: Instructions: ED Palpitations Prescriptions: Dexamethasone [Decadron] 6 mg PO DAILY #4 tab Prescription Printed Referrals: Care Physician,No Primary [Primary Care Provider] -
[2020-03-19 18:05] VITALS: O2SAT 98
[2020-03-19] MEDS: 0.9% Normal Saline 1,000 ML 1000 ML IV (18:34)
[2020-03-19 18:35] LABS: Absolute Lymphocyte Count 3.04 X10^3/uL (0.83-4.51); Absolute Neutrophil Count 3.2 X10^3/uL (2.0-7.7); Basophil# 0.02 X10^3/uL; Basophil% 0.3 % (0-1); Eosinophil# 0.08 X10^3/uL; Eosinophils% 1.2 % (0-5); Hemoglobin 10.4 g/dL (12.0-15.0); Lymphocyte # 3.04 X10^3/ul (4.0); Lymphocyte % 43.9 % (19-41); Mean Corp Hgb Conc 29.7 g/dL (32-36); Mean Corpuscular Hgb 20.7 pg (27.0-32.0); Mean Corpuscular Volume 69.7 fL (81-99); Mean Platelet Vol. 9.9 fl (6.2-12.0); Monocyte# 0.56 X10^3/uL; Monocyte% 8.1 % (0-10); NRBC Flagged by Analyzer 0 % (0-5); Neutrophil # 3.22 X10^3/uL (2.7-7.7); Neutrophil % 46.4 % (47-70); Platelet Count 359 K/mm3 (150-450); RBC Distribution Width CV 17.8 % (11.6-14.6); RBC Distribution Width SD 43.7 fl (35.1-43.9); Red Blood Count 5.02 M/mm3 (4.2-5.4); White Blood Count 6.9 K/mm3 (4.4-11.0)
[2020-03-19 18:54] LABS: Anion Gap 7 (5-15); BUN 11 mg/dL (7-18); BUN/Creat Ratio 12.3 RATIO (10-20); Calcium,Total 9.1 mg/dL (8.5-10.1); Chloride 108 mmol/L (98-107); EST Glomerular Filtration Rate 81 mL/min (>60); Est Glom Filt Rate - Afr Amer 98 mL/min (>60); Estimated Creatinine Clearance 68.04 ml/min; Glucose 102 mg/dL (74-106); Potassium 3.6 mmol/L (3.5-5.1); Sodium Level 140 mmol/L (136-145)
[2020-03-19 18:55] LABS: Internal QC Validated? YES +Cl - CLEAR BKGD; Pregnancy, Serum, hCG Quali. NEGATIVE Negative
--- NOTE | 2020-03-19 19:15 | CT_ITS ---
STUDY: CTA CHEST REASON FOR EXAM: Female, 25 years old. +COVID WITH INCREASE SOB RADIATION DOSAGE (If Supplied By Facility): CTDIvol = ( 8.44 ) mGy, DLP = ( 541.33 ) mGycm TECHNIQUE: The examination was performed with the intravenous administration of IV 100mL Isovue-370. Post-processing of the angiographic images was performed, with multiplanar reformation and 3D reconstruction. Individualized dose optimization techniques were used for this CT. COMPARISON: None. FINDINGS: Normal enhancement of the main pulmonary artery and right and left pulmonary arteries. Normal enhancement of the bilateral peripheral pulmonary arteries. There is no demonstrated pulmonary embolism. Normal thoracic aorta and visualized great vessels. There is no demonstrated aortic dissection. Normal heart and pericardium. Normal mediastinum. Normal hilar regions. Normal visualized trachea and bronchi. The lungs are well expanded. Small patch of infiltrate seen in the right lower lobe directly behind the hilum consistent with very mild inflammatory process. Additional even less prominent area of pulmonary opacities in the center of the left upper lobe. No effusions. Normal osseous structures. There is diffuse fatty infiltration of the liver. CT/CTA Chest W/WO Contrast IMPRESSION: Normal CTA chest examination, without a demonstrated pulmonary embolism or arterial dissection. Small areas of mild bilateral inflammatory infiltrates in the lungs. Electronically Signed: Jeferson Rocha MD at 19:43 EST , Service support ,
[2020-03-19 19:23] VITALS: BP 134/76; PULSE 96; RESP 24; O2SAT 100
--- NOTE | 2020-03-19 20:07 | ED.DEP ---
ED Disposition - Plan for ED Patient: Instructions: ED Palpitations Prescriptions: Dexamethasone [Decadron] 6 mg PO DAILY #4 tab Prescription Printed Referrals: Care Physician,No Primary [Primary Care Provider] -
[2020-03-19] MEDS: dexAMETHasone 4 MG Tablet 6 MG PO (20:29)
== END 2020-03-19 20:30 | disposition home or self-care (01) ==
LOC: ED 17:52
PROVIDERS: Emergency Provider Emergency Medicine
DX: U07.1 COVID-19 (principal); R00.2 Palpitations; R19.7 Diarrhea, unspecified; J45.909 Unspecified asthma, uncomplicated
CPT/HCPCS: 71275; 80048; 84484; 84703; 85025; 93005; 96360; 99285; J7030; Q9967; A4216

== ENCOUNTER → 2020-06-15 | Outpatient (CLI) | payer OTHER, MEDICAID, SELFPAY ==
[2020-06-15 08:32] VITALS: BMI 49.6
[2020-06-15 14:17] LABS: Amphetamine Urine VISTA NEGATIVE (<1000 ng/mL); Barbiturate Urine VISTA NEGATIVE (< 200 ng/mL); Benzodiazepine Urine VISTA NEGATIVE (< 200 ng/mL); Cocaine Urine VISTA NEGATIVE (< 300 ng/mL); Ecstacy Urine VISTA NEGATIVE (< 500 ng/mL); Methadone Urine VISTA NEGATIVE (< 300 ng/mL); PCP Urine VISTA NEGATIVE (< 25 ng/mL); THC Urine VISTA NEGATIVE (< 50 ng/mL); Vista UDS pH Range 6
[2020-06-18 07:06] LABS: Chlamydia By Nucleic Acid AMP Negative (Negative)
[2020-06-18 16:33] LABS: Gonococcus By Nucleic Acid AMP Negative (Negative)
[2020-06-22 13:03] LABS: HPV APTIMA, High Risk Negative (Negative)
[2020-06-22 13:42] LABS: HPV Reflexed? YES, CHARGE PATIENT
== END | disposition home or self-care (01) ==
LOC: LABSPEC 12:15
PROVIDERS: Referring Provider Obstetrics & Gynecology; Visit Provider Obstetrics & Gynecology
DX: O09.90 Supervision of high risk pregnancy, unspecified, unspecified trimester (principal); Z3A.00 Weeks of gestation of pregnancy not specified
CPT/HCPCS: 80307; 87077; 87086; 87088; 87491; 87591; 87624; 88175; G0145

== ENCOUNTER → 2020-07-02 09:06 | Outpatient (CLI) | payer OTHER, MEDICAID, SELFPAY ==
[2020-07-02 08:36] VITALS: BMI 46.4
[2020-07-02 09:40] LABS: Absolute Lymphocyte Count 1.89 X10^3/uL (0.83-4.51); Absolute Neutrophil Count 4.1 X10^3/uL (2.0-7.7); Basophil# 0.02 X10^3/uL; Basophil% 0.3 % (0-1); Eosinophil# 0.06 X10^3/uL; Eosinophils% 0.9 % (0-5); Hematocrit 32.7 % (37-47); Hemoglobin 9.8 g/dL (12.0-15.0); Lymphocyte # 1.89 X10^3/ul (0.83-4.51); Lymphocyte % 29.3 % (19-41); Mean Corpuscular Hgb 22.3 pg (27.0-32.0); Mean Corpuscular Volume 74.5 fL (81-99); Mean Platelet Vol. 9.7 fl (6.2-12.0); Monocyte# 0.41 X10^3/uL; Monocyte% 6.4 % (0-10); NRBC Flagged by Analyzer 0 % (0-5); Neutrophil # 4.05 X10^3/uL (2.7-7.7); Neutrophil % 62.8 % (47-70); Platelet Count 231 K/mm3 (150-450); RBC Distribution Width CV 19.1 % (11.6-14.6); RBC Distribution Width SD 51.1 fl (35.1-43.9); Red Blood Count 4.39 M/mm3 (4.2-5.4); White Blood Count 6.5 K/mm3 (4.4-11.0)
[2020-07-02 10:24] LABS: NATERA MAILED SPECIMEN
[2020-07-02 10:44] LABS: HIV - WCH Non-Reactive (Nonreactive); Hepatitis B Surface Antigen Non-Reactive (Nonreactive); Hepatitis C Antibody Non-Reactive (Nonreactive); Rubella IgG Reactive (Nonreactive); Syphilis Antibodies Non-reactive
== END ==
PROVIDERS: Referring Provider Obstetrics & Gynecology; Visit Provider Obstetrics & Gynecology
DX: Z34.81 Encounter for supervision of other normal pregnancy, first trimester (principal); Z31.430 Encounter of female for testing for genetic disease carrier status for procreative management
CPT/HCPCS: 36415; 85025; 86703; 86762; 86780; 86803; 86850; 86900; 86901; 87340

== ENCOUNTER → 2020-07-09 11:18 | Outpatient (CLI) | payer OTHER, MEDICAID, SELFPAY ==
[2020-07-02 08:36] VITALS: BMI 46.4
[2020-07-09 11:38] VITALS: BP 126/81; PULSE 86; RESP 16; O2SAT 99; BMI 46.4
[2020-07-09] MEDS: Dextrose 5%-Lactated Ringers 1,000 ML 999 ML IV (12:00)
[2020-07-09] MEDS: Ondansetron 4 MG/2 ML Vial IV (12:00)
[2020-07-09 13:23] VITALS: BP 120/59; PULSE 79; RESP 16; TEMP 36.4; O2SAT 99
== END ==
PROVIDERS: Referring Provider Obstetrics & Gynecology; Visit Provider Obstetrics & Gynecology
DX: E86.0 Dehydration (principal)
CPT/HCPCS: 96361; 96374; J2405

== ENCOUNTER → 2020-07-31 13:33 | Outpatient (CLI) | payer OTHER, MEDICAID, SELFPAY ==
[2020-07-31 13:12] VITALS: BMI 46.4
[2020-07-31 13:45] LABS: Absolute Lymphocyte Count 2.38 X10^3/uL (0.83-4.51); Absolute Neutrophil Count 4.5 X10^3/uL (2.0-7.7); Basophil# 0.02 X10^3/uL; Basophil% 0.3 % (0-1); Eosinophil# 0.06 X10^3/uL; Eosinophils% 0.8 % (0-5); Hematocrit 31.9 % (37-47); Hemoglobin 9.9 g/dL (12.0-15.0); Lymphocyte # 2.38 X10^3/ul (0.83-4.51); Lymphocyte % 31.1 % (19-41); Mean Corpuscular Hgb 22.7 pg (27.0-32.0); Mean Corpuscular Volume 73.2 fL (81-99); Mean Platelet Vol. 10.5 fl (6.2-12.0); Monocyte# 0.67 X10^3/uL; Monocyte% 8.7 % (0-10); NRBC Flagged by Analyzer 0 % (0-5); Neutrophil # 4.51 X10^3/uL (2.7-7.7); Neutrophil % 58.8 % (47-70); Platelet Count 229 K/mm3 (150-450); RBC Distribution Width CV 18.6 % (11.6-14.6); RBC Distribution Width SD 48.6 fl (35.1-43.9); Red Blood Count 4.36 M/mm3 (4.2-5.4); White Blood Count 7.7 K/mm3 (4.4-11.0)
[2020-07-31 14:17] LABS: Ferritin 5 ng/mL (8-252); Iron 25 ug/dL (50-170); Iron Binding Capacity,Total 459 ug/dL (250-450); PERCENT IRON SATURATION 5.4 % (15.0-55.0)
[2020-07-31 21:42] LABS: Xtra Tube EP Lab EXTRA TUBE
== END ==
PROVIDERS: Referring Provider Obstetrics & Gynecology; Visit Provider Obstetrics & Gynecology
DX: O99.019 Anemia complicating pregnancy, unspecified trimester (principal); Z3A.00 Weeks of gestation of pregnancy not specified
CPT/HCPCS: 36415; 82728; 83540; 83550; 85025

== ENCOUNTER → 2020-08-08 14:36 | Outpatient (CLI) | payer OTHER, MEDICAID, SELFPAY ==
[2020-07-31 13:12] VITALS: BMI 46.4
[2020-08-08 15:02] VITALS: BP 150/72; PULSE 96; RESP 16; TEMP 36.1; O2SAT 100; BMI 48.8
[2020-08-08] MEDS: Ondansetron 4 MG/2 ML Vial IV (15:38)
[2020-08-08] MEDS: 0.9% NaCl IVPB Med Flush (250 mL) 15 ML IV (15:39)
[2020-08-08] MEDS: Dextrose 5%-Lactated Ringers 1,000 ML 999 ML IV (15:45)
[2020-08-08 17:16] VITALS: BP 115/71; PULSE 88; TEMP 36.3; O2SAT 100
== END ==
PROVIDERS: Referring Provider Obstetrics & Gynecology; Visit Provider Obstetrics & Gynecology
DX: O99.019 Anemia complicating pregnancy, unspecified trimester (principal); E86.0 Dehydration
CPT/HCPCS: 96365; 96366; 96375; J1756; J7050; J2405

== ENCOUNTER → 2020-08-15 14:30 | Outpatient (CLI) | payer OTHER, MEDICAID, SELFPAY ==
[2020-07-31 13:12] VITALS: BMI 46.4
[2020-08-08 15:02] VITALS: BMI 48.8
[2020-08-15 14:48] VITALS: BP 118/65; PULSE 88; RESP 16; TEMP 36.9; O2SAT 100; BMI 48.8
[2020-08-15] MEDS: 0.9% NaCl Peripheral Flush Adult/Peds IV (15:05)
[2020-08-15] MEDS: 0.9% NaCl IVPB Med Flush (250 mL) 15 ML IV (15:06)
[2020-08-15] MEDS: Ondansetron 4 MG/2 ML Vial IV (15:08)
[2020-08-15] MEDS: Dextrose 5%-Lactated Ringers 1,000 ML 999 ML IV (15:13)
[2020-08-15 17:05] VITALS: BP 104/72; PULSE 85; RESP 16; O2SAT 100
== END ==
PROVIDERS: Referring Provider Obstetrics & Gynecology; Visit Provider Obstetrics & Gynecology
DX: D64.9 Anemia, unspecified (principal); E86.0 Dehydration
CPT/HCPCS: 96365; 96366; 96375; J1756; J7050; A4216; J2405

== ENCOUNTER → 2020-08-21 13:32 | Outpatient (CLI) | payer OTHER, MEDICAID, SELFPAY ==
[2020-07-31 13:12] VITALS: BMI 46.4
[2020-08-15 14:48] VITALS: BMI 48.8
[2020-08-21 14:02] VITALS: BP 135/73; PULSE 90; RESP 16; TEMP 36.3; O2SAT 98; BMI 48.8
[2020-08-21] MEDS: 0.9% NaCl IVPB Med Flush (250 mL) 15 ML IV (14:21)
[2020-08-21] MEDS: Ondansetron 4 MG/2 ML Vial IV (14:22)
[2020-08-21] MEDS: Dextrose 5%-Lactated Ringers 1,000 ML 700 ML IV (14:53)
[2020-08-21 16:46] VITALS: BP 128/80; PULSE 92; RESP 16; TEMP 36.7; O2SAT 99
== END ==
PROVIDERS: Referring Provider Obstetrics & Gynecology; Visit Provider Obstetrics & Gynecology
DX: D64.9 Anemia, unspecified (principal); E86.0 Dehydration
CPT/HCPCS: 96365; 96366; 96375; J1756; J7050; J2405

== ENCOUNTER 2020-09-03 19:18 | Emergency (ER) | payer OTHER, MEDICAID, SELFPAY ==
[2020-08-27 11:04] VITALS: BMI 48.8
[2020-09-03 19:18] VITALS: BP 120/88; PULSE 98; RESP 18; TEMP 36.4; O2SAT 97; BMI 49.1
[2020-09-03 20:33] LABS: Red Blood Cells-Urine 0 SEEN /hpf (0-5); Squamous Epithelial Cells - UA 0 SEEN /hpf (5-10); White Blood Cells 0 SEEN /hpf (0-5)
[2020-09-03 20:40] LABS: Color, Urine Yellow (Yellow); Glucose, Dipstick Normal (Normal); Ketone-Dipstick 5 mg/dl (Negative); Leukocyte Esterase-Dipstick Negative /ul (Negative); Nitrite-Dipstick Negative (Negative); Occult Blood-Urine Negative /ul (Negative); Protein-Dipstick Negative (Negative); Specific Gravity, Urine 1.025 (1.002-1.030); Urine Bilirubin Dipstick Negative (Negative); Urine Clarity Clear (Clear); Urine Urobilinogen Normal (Normal)
[2020-09-03 20:47] LABS: Anion Gap 7 (5-15); BUN 7 mg/dL (7-18); Calcium,Total 9.2 mg/dL (8.5-10.1); Chloride 105 mmol/L (98-107); Creatinine, Serum 0.58 mg/dL (0.55-1.02); EST Glomerular Filtration Rate 133 mL/min (>60); Est Glom Filt Rate - Afr Amer 160 mL/min (>60); Estimated Creatinine Clearance 105.58 ml/min; Glucose 83 mg/dL (74-106); Potassium 3.6 mmol/L (3.5-5.1); Sodium Level 136 mmol/L (136-145)
[2020-09-03 20:48] LABS: Bacteria 1+ /hpf (None Seen); Calcium Oxalate Crystals Ur 2+ /hpf (<or=2+)
[2020-09-03 20:49] LABS: Mucous, Urine 1+ /hpf (<or=2+)
[2020-09-03 21:00] LABS: Absolute Lymphocyte Count 2.44 X10^3/uL (0.83-4.51); Absolute Neutrophil Count 5.1 X10^3/uL (2.0-7.7); Basophil# 0.01 X10^3/uL; Basophil% 0.1 % (0-1); Eosinophil# 0.18 X10^3/uL; Eosinophils% 2.2 % (0-5); Hematocrit 35.6 % (37-47); Hemoglobin 11.5 g/dL (12.0-15.0); Lymphocyte # 2.44 X10^3/ul (0.83-4.51); Lymphocyte % 29.4 % (19-41); Mean Corp Hgb Conc 32.3 g/dL (32-36); Mean Corpuscular Hgb 25.6 pg (27.0-32.0); Mean Corpuscular Volume 79.3 fL (81-99); Mean Platelet Vol. 10.2 fl (6.2-12.0); Monocyte# 0.52 X10^3/uL; Monocyte% 6.3 % (0-10); NRBC Flagged by Analyzer 0 % (0-5); Neutrophil # 5.13 X10^3/uL (2.7-7.7); Neutrophil % 61.8 % (47-70); POSITIVE MORPHOLOGY YES; Platelet Count 194 K/mm3 (150-450); RBC Distribution Width CV 23.4 % (11.6-14.6); RBC Distribution Width SD 65.2 fl (35.1-43.9); Red Blood Count 4.49 M/mm3 (4.2-5.4); White Blood Count 8.3 K/mm3 (4.4-11.0)
[2020-09-03 21:02] LABS: Differential Indicated SCAN CRITERIA MET
[2020-09-03 21:05] LABS: Anisocytosis 1+; Microcytosis RARE; Platelet Estimate ADEQUATE (ADEQ); Red Cell Morphology N CHROM NORMAL (NORM C&C)
[2020-09-03 21:33] VITALS: PULSE 104; RESP 16; O2SAT 98
--- NOTE | 2020-09-03 22:25 | EX.ED.DYSGE1 ---
HPI History of Present Illness Chief Complaint: GI Bleed Informant: patient Onset/Context/Timing Onset: Yesterday Context: Gradual Onset Timing: Intermittent Current Severity: Mild Maximum Severity: Moderate Narrative Narrative: The patient is a 25-year-old female who is currently the presents to the emergency department with rectal bleeding by 1 yesterday. She states that she is had some cramping upper abdominal pain and nausea. She denies vomiting. She denies fevers or chills. She states yesterday, she moved her bowels and had some scant blood with clots. She states that is since resolved. She has no history of ulcer. She is not on anticoagulants. She is otherwise been in her normal state of health. [facility] Medical History Anemia Asthma Depression Inflammatory bowel disease Non-smoker Oral herpes Home Medications docosahexaenoic acid 200 mg capsule 200 mg PO DAILY 06/12/20 [History Last Taken Unknown] cetirizine [Zyrtec] 10 mg PO DAILY 08/21/20 [History Last Taken Unknown] famotidine 20 mg PO BID #28 tablet 09/03/20 [Rx Last Taken Unknown] Allergy/AdvReac Type Severity Reaction Status Date / Time No Known Allergies Allergy Verified 08/21/20 14:03 Surgical History delivery delivered H/O colonoscopy H/O myringotomy H/O toe surgery History of cholecystectomy History of esophagogastroduodenoscopy (EGD) History of tonsillectomy Social History household members: family housing: house number of children: 1 current occupational status: employed Smoking Status: Never smoker second hand exposure: No alcohol intake: never substance use type: does not use caffeine: Yes what type of physical activity do you participate in: walking seatbelt use: always do you feel safe at home: Yes 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 ROS ROS ED Constitutional Constitutional ED: Denies chills or fever(s) Eyes Eyes: Denies blurry vision or change in vision ENT ENT ED: Denies ear pain or sore throat Cardiovascular Cardiovascular: Denies chest pain or palpitations Respiratory/Chest Respiratory/Chest: Denies cough, dyspnea or dyspnea on exertion Gastrointestinal Gastrointestinal: Denies abdominal pain, nausea or vomiting Genitourinary Genitourinary ED: Denies dysuria or urinary frequency Musculoskeletal Musculoskeletal: Denies arthralgias or myalgias Integumentary Denies rash Neurologic Neurologic: Denies headache(s) or paresthesias Psychiatric Psychiatric: Denies anxiety or depression Endocrine Endocrinology: Denies polydipsia or polyuria Allergic/Immunologic Allergic/Immunologic ED: Denies urticaria EXAM Physical Exam Const Vital Signs: 09/03/20 19:18 09/03/20 21:33 Temperature 97.5 F L Temperature Source Temporal Pulse Rate 98 104 H Respiratory Rate 18 16 Blood Pressure 120/88 H Blood Pressure Mean 98 Pulse Ox 97 98 Oxygen Delivery Method Room Air Room Air Positive well nourished and well developed General Appearance ED: well developed HEENT Reports normocephalic, head/scalp atraumatic and moist mucous membranes Eyes PERRL and EOMs intact bilaterally Neck no lymphadenopathy and supple General: Negative for tenderness Chest Wall inspection of chest normal Resp normal respiratory effort and clear to auscultation bilaterally Cardio regular rate, regular rhythm and no murmurs GI normal to inspection, nondistended, normoactive bowel sounds Palpation: Negative for tender, guarding or rebound tenderness present Back/Spine no CVA tenderness Cervical Spine: Negative for cervical spine tenderness Thoracic Spine / Upper Back: Negative for thoracic spinal tenderness Extremity normal to inspection General Extremety ED: Negative for tenderness Neuro oriented x3 and CN's II-XII intact bilaterally Neuro Narrative: No focal deficits appreciated. Sensorium / Orientation: alert Psych mental status grossly normal Skin no rashes or lesions noted, no wounds and skin turgor normal MDM MDM MDM Narrative Medical decision making narrative: Patient presents with midepigastric pain 1 episode of red blood per rectum. Metabolic work-up was pursued. Labs are unremarkable. Urine does not show infection. The patient's hemoglobin is actually at its highest at 11.5. She has had no further episodes. I do not suspect this is a dangerous GI bleed. I am going to place the patient on famotidine. She will follow-up with OLERICULTURE PROFESSOR. Impression 1. Stable GI bleed Lab Data Attestation: I reviewed the patient's lab results. Labs: Laboratory Results - last 24 hr 09/03/20 09/03/20 09/03/20 19:30 20:23 20:23 WBC 8.3 RBC 4.49 Hgb 11.5 L Hct 35.6 L MCV 79.3 L MCH 25.6 L MCHC 32.3 RDW Std Deviation 65.2 H RDW Coeff of Shania 23.4 H Plt Count 194 MPV 10.2 Immature Gran % (Auto) 0.200 Neut % (Auto) 61.8 Lymph % (Auto) 29.4 [place] % (Auto) 6.3 Eos % (Auto) 2.2 Baso % (Auto) 0.1 Absolute Neuts (auto) 5.1 Absolute Lymphs (auto) 2.44 Nucleated RBC % 0 Platelet Estimate ADEQUATE RBC Morphology N CHROM Anisocytosis 1+ Microcytosis RARE Sodium 136 Potassium 3.6 Chloride 105 Carbon Dioxide 24.0 Anion Gap 7 BUN 7 Creatinine 0.58 Estim Creat Clear Calc 105.58 Est GFR (MDRD) Af Amer 160 Est GFR (MDRD) Non-Af 133 BUN/Creatinine Ratio 12.0 Glucose 83 Calcium 9.2 Urine Color Yellow Urine Clarity Clear Urine pH 6.0 Ur Specific [place] 1.025 Urine Protein Negative Urine Glucose (UA) Normal Urine Ketones 5 H Urine Occult Blood Negative Urine Nitrite Negative Urine Bilirubin Negative Urine Urobilinogen Normal Ur Leukocyte Esterase Negative Urine RBC 0 SEEN Urine WBC 0 SEEN Ur Squamous Epith Cells 0 SEEN Calcium Oxalate Crystal 2+ Urine Bacteria 1+ Urine Mucus 1+ Discharge Plan Triage Chief Complaint: GI Bleed ED Provider: Alexander Salcedo Dx/Rx/DC Orders Instructions: ED Lower GI Bleeding (Stable) Prescriptions: New famotidine [famotidine] 20 MG tablet 20 mg PO BID Qty: 28 RF: 0 No Action DHA 200 mg capsule 200 mg PO DAILY RF: 0 cetirizine [Zyrtec] 10 mg Tablet 10 mg PO DAILY RF: 0 Primary Care Provider: Cheryle Meza Referrals: Cheryle Meza MD [Primary Care Provider] -
[2020-09-03] MEDS: Ondansetron 4 MG/2 ML Vial IV (22:56)
[2020-09-03 22:57] VITALS: BP 114/67; PULSE 90; RESP 15; O2SAT 98
== END 2020-09-03 23:00 | disposition home or self-care (01) ==
PROVIDERS: Emergency Provider Emergency Medicine; PCP Obstetrics & Gynecology
DX: O26.899 Other specified pregnancy related conditions, unspecified trimester (principal); K62.5 Hemorrhage of anus and rectum; R10.10 Upper abdominal pain, unspecified; R11.0 Nausea; O99.019 Anemia complicating pregnancy, unspecified trimester; D64.9 Anemia, unspecified; O99.519 Diseases of the respiratory system complicating pregnancy, unspecified trimester; J45.909 Unspecified asthma, uncomplicated; Z79.899 Other long term (current) drug therapy; Z3A.00 Weeks of gestation of pregnancy not specified
CPT/HCPCS: 80048; 81001; 85025; 96374; 99284; J2405

== ENCOUNTER → 2020-09-04 14:06 | Outpatient (CLI) | payer OTHER, MEDICAID, SELFPAY ==
[2020-08-27 11:04] VITALS: BMI 48.8
[2020-09-03 19:18] VITALS: BMI 49.1
--- NOTE | 2020-09-04 14:09 | US_ITS ---
STUDY: SECOND AND THIRD TRIMESTER OBSTETRICAL ULTRASOUND REASON FOR EXAM: Female, 25 years old anatomy scan LMP: 04/14/2020. TECHNIQUE: Transabdominal and Transvaginal TECHNICAL QUALITY: Limited. PRIOR ULTRASOUND: None. FINDINGS: There is a single intrauterine fetus. The fetus is in a cephalic presentation. There is demonstrated cardiac activity with a heart rate of 145 bpm. There is a normal amniotic fluid volume. The largest amniotic fluid pocket measures 3.8 cm x 4.8 cm. The amniotic fluid index (MARTHA) is normal. The placenta is posterior in location and is not low lying. There are Grade 0 placental changes. There is funneling of the cervix. The adnexal regions are not visualized. BIOMETRY: BPD: 4.9 cm: 20 weeks, 5 days HC: 18.79 cm: 21 weeks, 0 days AC: 16.34 cm: 21 weeks, 2 days FL: 3.39 cm: 20 weeks, 4 days CI: 76% FL/BPD: 69.2% FL/HC: FL/AC: 20.8% HC/AC: 1.15 age by current US: 20 weeks, 5 days. JIM by current US: 01/17/2021. Estimated weight: 397 grams, +/- 16 grams, 78 %. Age by LMP: 20 weeks, 3 days. JIM by LMP: 01/19/2021. ANATOMY: Gender: Male Cranium: Normal lateral ventricles. Normal choroid plexus. Normal cerebellum. Normal cisterna magna. Normal face, nose and lips. Chest: Normal 4-chamber heart. Abdomen/Pelvis: Normal diaphragm. Normal stomach. Normal abdominal wall. Normal cord insertion. Normal 3 vessel cord. Normal kidneys. Normal bladder. Spine: Limited visualization of the spine. Follow-up examination is suggested. Extremities: Normal bilateral upper extremities. Normal bilateral lower extremities. IMPRESSION: Single live intrauterine gestation with a mean gestational age of 20 weeks and 5 days. Limited visualization of the spine. Follow-up is recommended. There is partial funneling of the cervix. Electronically Signed: Mukesh Almanzar MD at 10:02 EDT , Service support , STUDY: FIRST TRIMESTER OBSTETRICAL ULTRASOUND REASON FOR EXAM: Female, 25 years old anatomy scan LMP: TECHNIQUE: TECHNICAL QUALITY: Adequate. PRIOR ULTRASOUND: None. FINDINGS: There is visualization of a single gestational sac in a normal intrauterine position. The mean sac diameter (MSD) measures , indicating an estimated gestational age (EGA) of weeks, days. The gestational sac shape is within normal limits. There is a visualized yolk sac. The yolk sac measures . The placenta is non-visualized. There is visualization of a live embryo. The crown-rump length (CRL) measures , indicating an estimated gestational age (EGA) of weeks, days. There is demonstrated cardiac activity with a heart rate of bpm. The estimated gestation age (EGA) by LMP is weeks, days. The estimated date of delivery (JIM) by LMP is . The estimated gestation age (EGA) by US is weeks, days. The estimated date of delivery (JIM) by US is . The uterus measures . There is no demonstrated uterine fibroid. The cervix is closed. The right ovary measures . There is no right ovarian cyst. There is no visualized right adnexal mass or complex lesion. The left ovary measures . There is no left ovarian cyst. There is no visualized left adnexal mass or complex lesion. There is no fluid in the cul de sac. US/OB Anatomy Scan IMPRESSION: Electronically Signed: Mukesh Almanzar MD at 10:04 EDT , Service support ,
== END ==
PROVIDERS: PCP Obstetrics & Gynecology; Referring Provider Obstetrics & Gynecology; Visit Provider Obstetrics & Gynecology
DX: Z34.92 Encounter for supervision of normal pregnancy, unspecified, second trimester (principal); Z3A.15 15 weeks gestation of pregnancy
CPT/HCPCS: 76805; 76817

== ENCOUNTER 2020-09-05 21:45 | Outpatient (CLI) | payer OTHER, MEDICAID, SELFPAY ==
[2020-09-04 16:03] VITALS: BMI 49.1
[2020-09-05 21:56] VITALS: BMI 45.6
[2020-09-05 22:04] VITALS: BP 126/72; PULSE 93; TEMP 36.3; O2SAT 98
[2020-09-05 22:19] LABS: Color, Urine Yellow (Yellow); Glucose, Dipstick Normal (Normal); Ketone-Dipstick 5 mg/dl (Negative); Leukocyte Esterase-Dipstick 25 /ul (Negative); Nitrite-Dipstick Negative (Negative); Occult Blood-Urine 10 /ul (Negative); Protein-Dipstick Negative (Negative); Urine Bilirubin Dipstick Negative (Negative); Urine Clarity Clear (Clear); Urine Urobilinogen 1 mg/dl (Normal)
--- NOTE | 2020-09-06 11:48 | OB.TRI.PN ---
Progress Notes Date of Service: 09/05/20 Progress Note: Patient presents for triage evaluation secondary to pelvic pressure. Cervix is closed. No contractions. UA done - ordered urine culture FHT: Moderate variability reactive no decelerations category I tracing [place]: No Contractions Assessment and plan: Heart tones nl, reassuring maternal and status patient discharged to home to follow-up at next scheduled visit. See problem list details for additional plan information. Laboratory Studies: Laboratory Tests 09/05/20 Range/Units 22:10 Urine Color Yellow (Yellow) Urine Clarity Clear (Clear) Urine pH 6.0 (5.0 - 8.0) Ur Specific [place] 1.020 (1.002-1.030) Urine Protein Negative (Negative) mg/dl Urine Glucose (UA) Normal (Normal) mg/dl Urine Ketones 5 H (Negative) mg/dl Urine Occult Blood 10 H (Negative) /ul Urine Nitrite Negative (Negative) Urine Bilirubin Negative (Negative) mg/dL Urine Urobilinogen 1 H (Normal) mg/dl Ur Leukocyte Esterase 25 H (Negative) /ul Charges/Coding Procedures Urinary/Genital [id number]: No Charge
== END 2020-09-05 22:30 | disposition home or self-care (01) ==
LOC: WPOUT 21:50 → OBT 21:51
PROVIDERS: PCP Obstetrics & Gynecology; Referring Provider Obstetrics & Gynecology; Visit Provider Obstetrics & Gynecology
DX: O26.899 Other specified pregnancy related conditions, unspecified trimester (principal); R10.2 Pelvic and perineal pain
CPT/HCPCS: 59025; 59050; 81002; 87086; 87088; 99218; G0378

== ENCOUNTER → 2020-10-22 09:47 | Outpatient (CLI) | payer OTHER, MEDICAID, SELFPAY ==
[2020-10-22 10:07] LABS: Absolute Lymphocyte Count 1.97 X10^3/uL (0.83-4.51); Basophil# 0.02 X10^3/uL; Basophil% 0.3 % (0-1); Eosinophil# 0.07 X10^3/uL; Eosinophils% 0.9 % (0-5); Hematocrit 34.5 % (37-47); Hemoglobin 11.3 g/dL (12.0-15.0); Lymphocyte # 1.97 X10^3/ul (0.83-4.51); Lymphocyte % 25.6 % (19-41); Mean Corp Hgb Conc 32.8 g/dL (32-36); Mean Corpuscular Volume 85.6 fL (81-99); Monocyte# 0.61 X10^3/uL; Monocyte% 7.9 % (0-10); NRBC Flagged by Analyzer 0 % (0-5); Neutrophil # 5.02 X10^3/uL (2.7-7.7); Platelet Count 183 K/mm3 (150-450); RBC Distribution Width CV 18.9 % (11.6-14.6); Red Blood Count 4.03 M/mm3 (4.2-5.4); White Blood Count 7.7 K/mm3 (4.4-11.0)
[2020-10-22 10:21] LABS: Glucose Challenge Gest 1H 50g 108 mg/dL (70-140)
== END ==
PROVIDERS: Referring Provider Obstetrics & Gynecology; Visit Provider Obstetrics & Gynecology
DX: Z13.1 Encounter for screening for diabetes mellitus (principal)
CPT/HCPCS: 36415; 82950; 85025

== ENCOUNTER 2020-11-06 16:25 | Outpatient (CLI) | payer OTHER, MEDICAID, SELFPAY ==
[2020-11-06] VITALS (8 sets, daily range): BP systolic 106–120; BP diastolic 66–73; PULSE 90–109; TEMP 36.4; O2SAT 97; BMI 49.1
[2020-11-06 17:24] LABS: Hematocrit 35.5 % (37-47); Hemoglobin 11.9 g/dL (12.0-15.0); Mean Corp Hgb Conc 33.5 g/dL (32-36); Mean Corpuscular Hgb 28.8 pg (27.0-32.0); Mean Platelet Vol. 10.4 fl (6.2-12.0); Platelet Count 179 K/mm3 (150-450); RBC Distribution Width CV 17.2 % (11.6-14.6); RBC Distribution Width SD 54.1 fl (35.1-43.9); Red Blood Count 4.13 M/mm3 (4.2-5.4)
[2020-11-06 17:33] LABS: AST(SGOT) 16 U/L (15-37); Alanine Aminotransfer ALT/SGPT 25 U/L (13-56); Creatinine, Serum 0.61 mg/dL (0.55-1.02); EST Glomerular Filtration Rate 125 mL/min (>60); Est Glom Filt Rate - Afr Amer 151 mL/min (>60); Estimated Creatinine Clearance 100.39 ml/min; Uric Acid 5.4 mg/dL (2.6-6.0)
[2020-11-06 17:59] LABS: Protein, Urine (Random) 31.4 mg/dL (<11.9); Protein:Creat Ratio 88 mg/g CRE (0-200)
[2020-11-06] MEDS: Acetaminophen 500 MG Tablet PO (18:13)
[2020-11-06] MEDS: Acetaminophen/Butalbital/Caffe 1 Tablet PO (18:13)
--- NOTE | 2020-11-07 03:19 | OB.TRI.PN ---
Progress Notes Date of Service: 11/06/20 Progress Note: Patient presents for triage evaluation secondary to initial headache and decreased movement, all bps WNL and CLEMENTS resolved with medication FHT: 140 Moderate variability reactive no decelerations category I tracing [place]: no regular Contractions Assessment and plan: decreased movement Reactive NST, reassuring maternal and status patient discharged to home to follow-up as scheduled. See problem list details for additional plan information. Laboratory Studies: Laboratory Tests 11/06/20 11/06/20 11/06/20 Range/Units 17:00 17:00 17:00 WBC 9.0 (4.4-11.0) K/mm3 RBC 4.13 L (4.2-5.4) M/mm3 Hgb 11.9 L (12.0-15.0) g/dL Hct 35.5 L (37-47) % MCV 86.0 (81-99) fL MCH 28.8 (27.0-32.0) pg MCHC 33.5 (32-36) g/dL RDW Std Deviation 54.1 H (35.1-43.9) fl RDW Coeff of Shania 17.2 H (11.6-14.6) % Plt Count 179 (150-450) K/mm3 MPV 10.4 (6.2-12.0) fl Creatinine 0.61 (0.55-1.02) mg/dL Estim Creat Clear Calc 100.39 ml/min Est GFR (MDRD) Af Amer 151 (>60) mL/min Est GFR (MDRD) Non-Af 125 (>60) mL/min Uric Acid 5.4 (2.6-6.0) mg/dL AST 16 (15-37) U/L ALT 25 (13-56) U/L U Random Total Protein 31.4 H (<11.9) mg/dL Urine Creatinine 358.00 (NO RANGE EST.) mg/dL Protein/Creatinin Ratio 88 (0-200) mg/g CRE Charges/Coding Procedures Urinary/Genital [id number]: [id number] non-stress test Interp Assessment & Plan (1) Decreased movements in third trimester: COMMENT: reactive NST triage 11/07, nl pree labs done due to CLEMENTS
== END 2020-11-06 18:17 | disposition home or self-care (01) ==
LOC: WPOUT 16:37 → WP 16:37
PROVIDERS: Referring Provider Obstetrics & Gynecology; Visit Provider Obstetrics & Gynecology
DX: O36.8130 Decreased fetal movements, third trimester, not applicable or unspecified (principal); Z3A.00 Weeks of gestation of pregnancy not specified
CPT/HCPCS: 36415; 59025; 59050; 82565; 82570; 84156; 84450; 84460; 84550; 85027; 99218; G0378

== ENCOUNTER 2020-12-01 21:35 | Emergency (ER) | payer OTHER, MEDICAID, SELFPAY ==
[2020-12-01 21:37] VITALS: BP 125/90; PULSE 115; RESP 16; TEMP 36.4; O2SAT 98; BMI 50.5
[2020-12-01 22:16] VITALS: BP 125/90; PULSE 115; RESP 16; TEMP 36.4; O2SAT 98
--- NOTE | 2020-12-01 22:40 | EDS_ITS ---
HPI History of Present Illness Chief Complaint: Cough Informant: patient Narrative Narrative: 25-year-old female states that she has had a persistent cough for the past 3 days. Her daughter was diagnosed with croup. Patient states that she is having some posttussive emesis. Cough is mostly nonproductive. No fevers. Some mild rhinorrhea no sore throat. She cannot find her inhaler that she uses for her asthma. She is 33 weeks . [facility] Medical History Anemia Asthma Depression Inflammatory bowel disease Non-smoker Oral herpes Home Medications cetirizine [Zyrtec] 10 mg PO DAILY 08/21/20 [History Last Taken 11/05/20 10:00] [id number] [ 1] 1 tab PO DAILY 09/05/20 [History Last Taken 11/06/20 10:00] albuterol sulfate 90 mcg/actuation aerosol inhaler 2 puff INHALATION Q6H PRN #8.5 g 09/06/20 [Rx Last Taken Unknown] promethazine 25 mg tablet 25 mg PO TID #30 tab 11/02/20 [Rx Last Taken Unknown] ferrous sulfate [iron] 325 mg PO DAILY 11/06/20 [History Last Taken Unknown] prednisone 60 mg PO DAILY #12 tablet 12/01/20 [Rx Last Taken Unknown] prednisone 60 mg PO DAILY #12 tablet 12/01/20 [Rx Last Taken Unknown] Allergy/AdvReac Type Severity Reaction Status Date / Time No Known Allergies Allergy Verified 12/01/20 21:40 Surgical History delivery delivered H/O colonoscopy H/O myringotomy H/O toe surgery History of cholecystectomy History of esophagogastroduodenoscopy (EGD) History of tonsillectomy Social History household members: family housing: house number of children: 1 current occupational status: employed Smoking Status: Never smoker second hand exposure: No alcohol intake: never substance use type: does not use caffeine: Yes what type of physical activity do you participate in: walking seatbelt use: always do you feel safe at home: Yes 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 ROS ROS ED Constitutional Constitutional ED: Denies chills or weight loss Eyes Eyes: Denies change in vision or diplopia ENT ENT ED: Denies ear pain, rhinorrhea or sore throat Cardiovascular Cardiovascular: Denies chest pain, orthopnea, palpitations or racing heartbeat Respiratory/Chest Respiratory/Chest: Reports cough and dyspnea; Denies orthopnea Gastrointestinal Gastrointestinal: Denies abdominal pain, diarrhea, nausea or vomiting Genitourinary Genitourinary ED: Denies dysuria, hematuria or urinary frequency Musculoskeletal Musculoskeletal: Denies arthralgias or myalgias Integumentary Denies abscess or rash Neurologic Neurologic: Denies headache(s) or weakness Psychiatric Psychiatric: Denies anxiety, depression, suicidal ideation or suicidal thoughts Endocrine Endocrinology: Denies polydipsia, polyphagia or polyuria Allergic/Immunologic Allergic/Immunologic ED: Denies mouth swelling, tongue swelling or urticaria EXAM Physical Exam Const Vital Signs: 12/01/20 21:37 12/01/20 22:16 12/01/20 22:55 Temperature 97.6 F L 97.6 F L Temperature Source Temporal Temporal Pulse Rate 115 H 115 H 110 H Respiratory Rate 16 16 20 H Respiratory Effort Normal Respiratory Depth Normal Respiratory Pattern Normal Normal Blood Pressure 125/90 H 125/90 H Blood Pressure Mean 101 101 Pulse Ox 98 98 Oxygen Delivery Method Room Air Room Air Positive well nourished, well developed and obese General Appearance ED: well developed Nutritional Appearance: obese HEENT Reports normocephalic, head/scalp atraumatic and moist mucous membranes Eyes PERRL and EOMs intact bilaterally Neck no lymphadenopathy, supple and no JVD Resp normal respiratory effort Auscultation: wheezes expiratory wheezes Cardio regular rate, regular rhythm and no murmurs GI normal to inspection, nondistended, normoactive bowel sounds and non-tender GI Narrative: Gravid uterus Palpation: soft Back/Spine no CVA tenderness and normal ROM Extremity normal to inspection General Extremety ED: Negative for edema General Extremity: Negative for edema Neuro oriented x3 and CN's II-XII intact bilaterally Sensorium / Orientation: alert Motor Exam: strength 5/5 throughout Psych mental status grossly normal Mood & Affect: Negative for depressed or tearful Skin no rashes or lesions noted and no wounds MDM MDM MDM Narrative Medical decision making narrative: Patient received a DuoNeb and albuterol MDI with pocket chamber. She also received prednisone. Repeat examination shows the cough to be lessened and she has improved aeration with clear breath sounds. Patient will be discharged home with additional 4 more days of prednisone as well as with the inhaler. Return if worsening or concerns Discharge Plan Triage Chief Complaint: Cough ED Provider: John Carson Dx/Rx/DC Orders Clinical Impression: Third trimester , Acute bronchitis with bronchospasm Instructions: ED Bronchitis with Wheezing (Adult) Prescriptions: New prednisone 20 MG tablet 60 mg PO DAILY Qty: 12 RF: 0 prednisone 20 MG tablet 60 mg PO DAILY Qty: 12 RF: 0 No Action cetirizine [Zyrtec] 10 mg Tablet 10 mg PO DAILY RF: 0 1 1 mg Tablet 1 tab PO DAILY RF: 0 ferrous sulfate [iron] 325 mg (65 mg iron) Tablet 325 mg PO DAILY RF: 0 albuterol sulfate 90 mcg/actuation HFA aerosol inhaler 2 puff inhalation Q6H PRN (Reason: shortness of breath or wheezing) Qty: 8.5 RF: 3 promethazine 25 mg tablet 25 mg PO TID Qty: 30 RF: 1 Primary Care Provider: Care Physician,No Primary Referrals: Care Physician,No Primary [Primary Care Provider] - Activity Restrictions/Additional Instructions: 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 Return if worsening or concerns Disposition Disposition: Home, Self Care
[2020-12-01] MEDS: Ipratropium/Albuterol Sulfate 3 ML AMPUL.NEB INHALATION (22:53)
[2020-12-01] MEDS: predniSONE 20 MG Tablet 60 MG PO (22:54)
[2020-12-01 22:55] VITALS: PULSE 110; RESP 20
[2020-12-01 23:50] VITALS: BP 125/90; PULSE 110; RESP 20; TEMP 36.4; O2SAT 98
== END 2020-12-01 23:51 | disposition home or self-care (01) ==
PROVIDERS: Emergency Provider Emergency Medicine
DX: O99.513 Diseases of the respiratory system complicating pregnancy, third trimester (principal); J20.9 Acute bronchitis, unspecified; J45.909 Unspecified asthma, uncomplicated; O99.013 Anemia complicating pregnancy, third trimester; D64.9 Anemia, unspecified; O99.213 Obesity complicating pregnancy, third trimester; E66.9 Obesity, unspecified; Z3A.33 33 weeks gestation of pregnancy
CPT/HCPCS: 94640; 99282

== ENCOUNTER → 2020-12-24 | Outpatient (CLI) | payer OTHER, MEDICAID, SELFPAY ==
[2020-12-24 13:41] LABS: ROM Internal Control Test YES-OK TO RESULT pt. (Internal QC); ROM Patient Test Negative (Negative)
== END | disposition home or self-care (01) ==
PROVIDERS: Referring Provider Nurse Practitioner Women's Health; Visit Provider Nurse Practitioner Women's Health
DX: Z34.93 Encounter for supervision of normal pregnancy, unspecified, third trimester (principal); Z3A.35 35 weeks gestation of pregnancy
CPT/HCPCS: 84112; 87081

== ENCOUNTER → 2020-12-28 12:20 | Outpatient (CLI) | payer OTHER, MEDICAID, SELFPAY ==
--- NOTE | 2020-12-28 12:22 | US_ITS ---
STUDY: OBSTETRICAL ULTRASOUND - BIOPHYSICAL PROFILE REASON FOR EXAM: Female, 25 years old heart deceleration -- LMP: 04/14/2020. PRIOR ULTRASOUND: Comparison is made with prior examination dated 09/04/2020. TECHNIQUE: Transabdominal TECHNICAL QUALITY: Adequate. FINDINGS: There is a single intrauterine fetus. The fetus is in a cephalic presentation. There is demonstrated cardiac activity with a heart rate of 136 bpm. There is a normal amniotic fluid volume. The largest amniotic fluid pocket measures 3.6 cm. The amniotic fluid index (MARTHA) is 8.3 cm. The placenta is posterior in location and is not low lying. There are Grade 3 placental changes. Age by LMP: 36 weeks, 6 days. JIM by LMP: 01/19/2021. age by prior US: 37 weeks, 1 days. JIM by prior US: 01/17/2021. BIOPHYSICAL PROFILE: Breathing Movements (FBM): 2 Gross Body Movements (GBM): 2 Tone (FT): 2 Amniotic Fluid Volume (AFV): 2 TOTAL SCORE: 8 / 8 US/Biophysical Prof W/O Non Stres IMPRESSION: Normal biophysical profile of 8/8. Electronically Signed: Mukesh Almanzar MD at 13:38 EDT , Service support ,
== END ==
PROVIDERS: Referring Provider Obstetrics & Gynecology; Visit Provider Obstetrics & Gynecology
DX: O36.8390 Maternal care for abnormalities of the fetal heart rate or rhythm, unspecified trimester, not applicable or unspecified (principal); Z3A.00 Weeks of gestation of pregnancy not specified
CPT/HCPCS: 76819

== ENCOUNTER → 2021-01-01 | Outpatient (CLI) | payer OTHER, SELFPAY ==
[2021-01-01 17:19] LABS: ROM Internal Control Test YES-OK TO RESULT pt. (Internal QC); ROM Patient Test Negative (Negative)
== END | disposition home or self-care (01) ==
PROVIDERS: Referring Provider Obstetrics & Gynecology; Visit Provider Obstetrics & Gynecology
DX: N89.8 Other specified noninflammatory disorders of vagina (principal)
CPT/HCPCS: 84112

== ENCOUNTER → 2021-01-04 12:26 | Outpatient (CLI) | payer OTHER, MEDICAID, SELFPAY ==
--- NOTE | 2021-01-04 12:26 | US_ITS ---
STUDY: SECOND AND THIRD TRIMESTER OBSTETRICAL ULTRASOUND - LIMITED REASON FOR EXAM: Female, 25 years old MARTHA only LMP: 04/14/2020. PRIOR ULTRASOUND: Comparison is made with prior study dated 12/28/2020. TECHNIQUE: Transabdominal TECHNICAL QUALITY: Adequate. FINDINGS: There is a single intrauterine fetus. The fetus is in a cephalic presentation. There is demonstrated cardiac activity with a heart rate of 153 bpm. There is a normal amniotic fluid volume. The largest amniotic fluid pocket measures 3.7 cm. The amniotic fluid index (MARTHA) is 10.5 cm. The placenta is posterior in location and is not low lying. There are Grade 3 placental changes. BIOMETRY: Age by LMP: 37 weeks, 6 days. JIM by LMP: 01/19/2021. US/OB Limited (No Biometrics) IMPRESSION: Normal amniotic fluid. Electronically Signed: Mukesh Almanzar MD at 8:24 EDT , Service support ,
== END ==
PROVIDERS: Referring Provider Obstetrics & Gynecology; Visit Provider Obstetrics & Gynecology
DX: O09.93 Supervision of high risk pregnancy, unspecified, third trimester (principal); Z3A.37 37 weeks gestation of pregnancy
CPT/HCPCS: 76815

== ENCOUNTER 2021-01-08 20:40 | Outpatient (CLI) | payer OTHER, SELFPAY ==
[2021-01-08] VITALS (12 sets, daily range): BP systolic 130–153; BP diastolic 80–86; PULSE 86–110; TEMP 36.3; O2SAT 93–100; BMI 50.0
[2021-01-08] MEDS: Lactated Ringers 1,000 ML 999 ML IV ×2 (21:45→23:57)
[2021-01-08] MEDS: Acetaminophen 500 MG Tablet 1000 MG PO (21:52)
[2021-01-08] MEDS: fentaNYL 100 MCG/2 ML Ampul 50 MCG IV (22:25)
[2021-01-08] MEDS: Terbutaline 1 MG/ML Vial 0.25 MG SC (23:55)
[2021-01-09] VITALS (13 sets, daily range): BP systolic 122; BP diastolic 58; PULSE 95–111; TEMP 36.3; O2SAT 97–100
--- NOTE | 2021-01-09 05:52 | OB.TRI.PN ---
Progress Notes Date of Service: 01/08/21 Progress Note: Patient presents for triage evaluation secondary to false labor, contractions FHT: 140 Moderate variability reactive no decelerations category I tracing [place]: q 2-5, then decreasing Contractions Assessment and plan: false labor, IVFs and pain meds given, Reactive NST, reassuring maternal and status patient discharged to home to follow-up as scheduled. See problem list details for additional plan information. Charges/Coding Procedures Urinary/Genital [id number]: [id number] non-stress test Interp Assessment & Plan (1) False labor:
== END 2021-01-09 01:50 | disposition home or self-care (01) ==
LOC: WPOUT 20:45 → WP 20:46
PROVIDERS: Visit Provider Obstetrics & Gynecology
DX: O47.9 False labor, unspecified (principal); Z3A.00 Weeks of gestation of pregnancy not specified
CPT/HCPCS: 96361 ×2; 96374; 59025; 59050; 96372; 99218; J7120; G0378

== ENCOUNTER 2021-01-09 14:55 | Inpatient (IN) | payer OTHER, SELFPAY ==
[2021-01-09] VITALS (15 sets, daily range): BP systolic 113–135; BP diastolic 68–88; PULSE 93–105; RESP 18–20; TEMP 36.6–37.2; O2SAT 96–99; BMI 51.2
[2021-01-09] MEDS: Lactated Ringers 1,000 ML 999 ML IV (15:25)
[2021-01-09 15:39] LABS: Absolute Lymphocyte Count 2.03 X10^3/uL (0.83-4.51); Absolute Neutrophil Count 6.5 X10^3/uL (2.0-7.7); Basophil# 0.02 X10^3/uL; Basophil% 0.2 % (0-1); Eosinophil# 0.04 X10^3/uL; Eosinophils% 0.4 % (0-5); Hematocrit 36.1 % (37-47); Hemoglobin 12.3 g/dL (12.0-15.0); Lymphocyte # 2.03 X10^3/ul (0.83-4.51); Lymphocyte % 21.6 % (19-41); Mean Corp Hgb Conc 34.1 g/dL (32-36); Mean Corpuscular Hgb 29.2 pg (27.0-32.0); Mean Corpuscular Volume 85.7 fL (81-99); Mean Platelet Vol. 10.8 fl (6.2-12.0); Monocyte# 0.75 X10^3/uL; NRBC Flagged by Analyzer 0 % (0-5); Neutrophil # 6.51 X10^3/uL (2.7-7.7); Neutrophil % 69.5 % (47-70); Platelet Count 184 K/mm3 (150-450); RBC Distribution Width CV 15.1 % (11.6-14.6); RBC Distribution Width SD 46.2 fl (35.1-43.9); Red Blood Count 4.21 M/mm3 (4.2-5.4); White Blood Count 9.4 K/mm3 (4.4-11.0)
[2021-01-09] MEDS: Sodium Citrate/Citric Acid 30 ML UDC PO (15:58)
[2021-01-09] MEDS: Acetaminophen 500 MG Tablet 1000 MG PO ×2 (15:59→22:16)
[2021-01-09] MEDS: Cefazolin 2 GM in 0.9% Normal Saline 100 ML IV (16:04)
--- NOTE | 2021-01-09 17:02 | EX.PCM.OBRPT ---
Maternal Data Information JIM Calculator Estimated Delivery Date Method Current WG Current Estimate 01/21/21 LMP (Certain) 38w 2d Details Operative Information Date of Procedure: 01/09/21 Pre-Operative Diagnosis: , early labor, prior section, declines Post-Operative Diagnosis: , early labor, prior section, declines Indications for : Repeat Elective (early labor ) Classification: NESTOR Procedure Type: low transverse flying ii instructor #1: Cheryle Meza Type of Anesthesia: Spinal Anesthesiologist: Lily Glass Antibiotic Given: Ancef 2 grams IV x1 Estimated Blood Loss: 500cc Findings Description of Procedure: Procedure: The patient was brought to the operating room where [ ] anesthesia was found to be adequate. She was prepped and draped in the normal sterile fashion and was placed in a dorsal supine position with a leftward tilt. Pfannenstiel skin incision was made with a scalpel and carried through to the underlying layers. The fascia was nicked in the midline and extended laterally using Richey scissors. The anterior aspect of the fascia was grasped with Tommy clamps and the underlying rectus muscles dissected off using the Metzenbaum scissors. The inferior aspect the fascia was also grasped with Tommy clamps and the underlying rectus muscle dissected off with the Metzenbaum scissors. The rectus muscles were in the midline. Peritoneum was entered sharply. The uterus was identified and a bladder blade was inserted into the abdomen. Bladder flap was created off the uterus using Metzenbaum scissors. A transverse incision was made with a scalpel and extended laterally manually. The infant's head was grasped with the help of my assistant director of residence life and fundal pressure the infant was delivered through the uterine incision without difficulty. The mouth and nares were bulb suctioned. After a 30 second delay the cord was clamped and cut. The end was handed off to the awaiting equalizer operator for routine assessment. Placenta was delivered manually without difficulty. The uterus was exteriorized and cleared of all clots and debris. Incision was closed with an 0 Vicryl suture in a running locked fashion. Second layer of 1-0 monocryl suture was used in imbricating manner to create excellent closure and hemostasis. [The tubal ligation procedure was performed next. The right tube was grasped with a [place] clamp and the underlying mesosalpinx was incised with monopolar cautery to create a window. Plain gut suture was placed at the proximal and distal portions of the fallopian tube to include the fimbriated end. Portion between the 2 suture was then cut and passed off for pathology analysis. The same procedure was performed on the left side.] The uterus was returned to the abdomen. The gutters were cleared of all clots and debris. The peritoneum was closed in a pursestring pattern using a 3-0 Vicryl suture. This muscle was reapproximated with a 3-0 Vicryl. The fascia was closed with an [ 0 Vicryl] suture. Subcutaneous tissue layer was closed using a plain gut suture. The skin was closed with a 4-0 Monocryl subcuticular stitch. The skin was also sealed with surgical glue. The patient tolerated the procedure well sponge lap and needle counts were correct at each tissue closure plane and the patient is now being brought to the recovery room in stable condition Presentation: Positive for Vertex Amniotic Fluid Description: Moderate meconium Placental Delivery Description: Manual Removal Placenta Disposition: [facility] Cord Vessel Description: 3 Vessels Cord Entanglement: None (1 minute): 8 (5 minute): 9 Delayed Cord Clamping: Yes
--- NOTE | 2021-01-09 17:16 | HP.PCM.OB_ITS ---
HPI - General General Date of Admission: 01/09/21 HPI Narrative ДМИТРИЙ CAMPO, is a @ 38 weeks 2 days 25 F who presents for a repeat section due to painful contractions x 24 hours. She was iv hydrated last night and returned to the office again today with worsening pain. Maternal Data Information JIM Calculator Estimated Delivery Date Method Current WG Current Estimate 01/21/21 LMP (Certain) 38w 2d PFSH PFSH Medical History (Updated 01/09/21 @ 13:23 by Latricia Vines) Anemia Asthma Depression heart deceleration Inflammatory bowel disease Non-smoker Oral herpes Home Medications cetirizine [Zyrtec] 10 mg PO DAILY 08/21/20 [History Last Taken 11/05/20 10:00] [id number]-FA [ 1] 1 tab PO DAILY 09/05/20 [History Last Taken 01/07/21 19:00] albuterol sulfate 90 mcg/actuation aerosol inhaler 2 puff INHALATION Q6H PRN #8.5 g 09/06/20 [Rx Last Taken Unknown] promethazine 25 mg tablet 25 mg PO TID #30 tab 11/02/20 [Rx Last Taken Unknown] ferrous sulfate [iron] 325 mg PO DAILY 11/06/20 [History Last Taken Unknown] Allergy/AdvReac Type Severity Reaction Status Date / Time No Known Allergies Allergy Verified 01/09/21 13:22 Surgical History (Updated 01/09/21 @ 15:32 by Eber Hammond) delivery delivered H/O colonoscopy H/O myringotomy H/O toe surgery History of cholecystectomy History of esophagogastroduodenoscopy (EGD) History of tonsillectomy Previous section Social History household members: family housing: house number of children: 1 current occupational status: employed Smoking Status: Never smoker second hand exposure: No alcohol intake: never substance use type: does not use caffeine: Yes what type of physical activity do you participate in: walking seatbelt use: always do you feel safe at home: Yes additional social history: - Jonah [employer] History 2 Elective abortions Hx Para 1 Spontaneous abortions Hx # Term Pregnancies Ectopic pregnancies Hx # Pregnancies Multiple births # of living children Past Pregnancies Del. Date Name GA/Weeks Outcome Route Bth Weight Gen Labor Lgth Anesthesia Del Prabhu Provider FOB 09/04/17 Zahra 39 live - full term 7lbs 12oz Female epidural [facility] DM Jonah Delivery Date: 09/04/17 IoL d/t GHTN; AOD at 5cm; Category 2 FHR recurrent late decelerations, Meconium fluid [facility] Visit Details Expected Delivery Route/Plan RLTCS with SM Plans covid status: nonimmune, counseled regarding risk of covid in vs vaccination and declined vaccination flu vaccine: given tdap vaccine: given rhogam: na LARC form signed: 11/14 movement and labor precautions reviewed. Problem list reviewed and updated with the most current plan of care details and appropriate orders placed. Relevant counseling for the gestational age provided. Continue routine care and follow up unless otherwise noted in visit notes/problem list details OB Flowsheet Initial Weight: Not Recorded Date -?-?--?-?-?-?-?-?-?-?-?-?- EGA Weight BP Urine Prot -?-?-?-?-?-?-?-?-?-?-?-?- Glucose FHR FuHt Pres Dilation -?-?-?-?-?-?-?-?-?-?-?-?- Effaced St Visit Note 06/15/20 -?-?-?-?-?-?-?-?-?-?-?-?- 8w 4d 254 lb 124/82 -?-?-?-?-?-?-?-?-?-?-?-?- 170 -?-?-?-?-?-?-?-?-?-?-?-?- SM- CRL 2.4cm co ns with LMP small subchorionic hemorrhage seen 07/02/20 -?-?-?-?-?-?-?-?-?-?-?-?- 11w 0d 254 lb 110/82 Negative -?-?-?-?-?-?-?-?-?-?-?-?- Negative 160 -?-?-?-?-?-?-?-?-?-?-?-?- SM- subchorionic hemorrhage almost resolved, nipt and carrier screening today. 07/31/20 -?-?-?-?-?-?-?-?-?-?-?-?- 15w 1d 251 lb 120/82 Negative -?-?-?-?-?-?-?-?-?-?-?-?- Negative 150 -?-?-?-?-?-?-?-?-?-?-?-?- SM- no vb crmapi ng 08/27/20 -?-?-?-?-?-?-?-?-?-?-?-?- 19w 0d 250 lb -?-?-?-?-?-?-?-?-?-?-?-?- 145 -?-?-?-?-?-?-?-?-?-?-?-?- SM- no vb crampi ng doing well 09/04/20 -?-?-?-?-?-?-?-?-?-?-?-?- 20w 1d 250 lb 120/62 -?-?-?-?-?-?-?-?-?-?-?-?- -?--?-?-?-?-?-?-?-?-?-?-?- SM-patient seen for anatomy ultrasound and cervical shortening of 1.6 cm with funneling was seen on exam. Cervix checked now and is closed and feels firm. Plan M consult for recommendations this week. Reviewed precautions. 09/24/20 -?-?-?-?-?-?-?-?-?-?-?-?- 23w 0d 251 lb 8 oz 124/80 Trac e -?-?-?-?-?-?-?-?-?-?-?-?- Negative 140 -?-?-?-?-?-?-?-?-?-?-?-?- GP - no cramping or bleeding. Brief bedside US for HR. Anatomy scan reviewed. 10/22/20 -?-?-?-?-?-?-?-?-?-?-?-?- 27w 0d 254 lb 128/80 Negative -?-?-?-?-?-?-?-?-?-?-?-?- Negative 135 27 -?-?-?-?-?-?-?-?-?-?-?-?- GP - no LOF, VB, DFM, ctx. 1h CT and CBC nl 11/14/20 -?-?-?-?-?-?-?-?-?-?-?-?- 30w 2d 255 lb 2 oz 124/78 Nega tive -?-?-?-?-?-?-?-?-?-?-?-?- Negative 140 30 -?-?-?-?-?-?-?-?-?-?-?-?- GP - no LOF, VB, dFM, ctx. LARC form signed. 11/28/20 -?-?-?-?-?-?-?-?-?-?-?-?- 32w 2d 255 lb Negative -?-?-?-?-?-?-?-?-?-?-?-?- Negative 130 32 -?-?-?-?-?-?-?-?-?-?-?-?- GP - no ctx, LOF , VB, DFM. Daughter recently had croup - safe med list given 12/05/20 -?-?-?-?-?-?-?-?-?-?-?-?- 33w 2d 259 lb 8 oz 130/88 Nega tive -?-?-?-?-?-?-?-?-?-?-?-?- Negative 130 -?-?-?-?-?-?-?-?-?-?-?-?- SM- no vb lof go od fm no regular ctx 12/14/20 -?-?-?-?-?-?-?-?-?-?-?-?- 34w 4d 255 lb 124/82 -?-?-?-?-?-?-?-?-?-?-?-?- -?-?-?-?-?-?-?-?-?-?-?-?- 12/21/20 -?-?-?-?-?-?-?-?-?-?--?-?- 35w 4d 259 lb 2 oz 126/87 Nega tive -?-?-?-?-?-?-?-?-?-?-?-?- Negative 130 -?-?-?-?-?-?-?-?-?-?-?-?- SM- no vb lof go od fm no reuglar ctx nst today 12/24/20 -?-?-?-?-?-?-?-?-?-?-?-?- 36w 0d 260 lb 2 oz 122/80 Nega tive -?-?-?-?-?-?-?-?-?-?-?-?- Negative 148 0 -?-?--?-?-?-?-?-?-?-?-?-?- MH-worki in due to thinks leaking fluid. Irreg CTX. NO VB, LOF. Good FM. ROM pending. GBS done MH-work in due to thinks robin rubens fluid. Irreg CTX. NO VB, LOF. Good FM. ROM pending. GBS done 12/28/20 -?-?-?-?-?-?-?-?-?-?-?-?- 36w 4d 259 lb 132/70 -?-?-?-?-?-?-?-?-?-?-?-?- 145 -?-?-?-?-?-?-?-?-?-?-?-?- SM- no vb lof go od fm no regular ctx 01/01/21 -?-?-?-?-?-?-?-?-?-?-?-?- 37w 1d -?-?-?-?-?-?-?-?-?-?-?-?- 140 -?-?-?-?-?-?-?-?-?-?-?-?- SM- questionable LOF negative ROM, no vb good fm no regular ctx 01/04/21 -?-?-?-?-?-?-?-?-?-?-?-?- 37w 4d 260 lb 118/88 Negative -?-?-?-?-?-?-?-?-?--?-?-?- Negative 130 -?-?-?-?-?-?-?-?-?-?-?-?- SM- no vb lof go od fm no reular ctx negrito today 01/09/21 -?-?-?-?-?-?-?-?-?-?-?-?- 38w 2d 265 lb 2 oz 130/90 -?-?-?-?-?-?-?-?-?-?-?-?- 135 -?-?-?-?-?-?-?-?-?-?-?-?- 0 JV- pt carlos patelurns with painful contractions after being in hospital until 1 am. She is having contractions every 3 min and breathing through them. plan for section at 4pm tonight. 01/09/21 -?-?-?-?-?-?-?-?-?-?-?-?- 38w 2d 262 lb 9.129 oz 135/ 88 135/88 -?-?-?-?-?-?-?-?-?-?-?-?- -?-?-?-?-?-?-?-?-?-?-?-?- ROS Constitutional Constitutional: Denies change in weight, fatigue, fever(s), headache(s), poor appetite or weakness Eyes Eyes: Denies blurry vision, change in vision, seeing flashes or spots in vision ENT HEENT: Denies dizziness, headache(s), loss taste/smell or sore throat Cardiovascular Cardiovascular: Denies chest pain, dizziness, dyspnea, irregular heart rhythm, leg edema, palpitations, rapid heart rate or vomiting Respiratory/Chest Respiratory/Chest: Denies chest tightness, cough, dyspnea or breast pain Gastrointestinal Gastrointestinal: Denies abdominal pain, anorexia, constipation, cramping, diarrhea, hemorrhoids, vomiting or weight changes Genitourinary Genitourinary: Denies dysuria, flank pain, genital lesions, genital pain, urinar y frequency or urinary urgency Musculoskeletal Musculoskeletal: Denies back pain, difficulty walking, joint pain, limited range of motion, muscle cramps or numbness Integumentary Integumentary: Denies lesions or unusual bruising Neurologic Neurologic: Denies abnormal movements, abnormal speech, dizziness, numbness, seizure-like activity or syncope Psychiatric Psychiatric: Denies anxiety, behavioral changes, change in appetite, change in libido, cognitive impairment, confusion, depression, difficulty concentrating, hallucinations or suicidal thoughts Endocrine Endocrinology: Denies excessive sweating, polydipsia or polyuria Hematologic/Lymphatic Hematologic/Lymphatic: Denies easy bleeding, easy bruising or lymphadenopathy Allergic/Immunologic Allergic/Immunologic: Denies itchy eyes, lip swelling, seasonal rhinorrhea, rhinitis, throat swelling, tongue swelling, eczemia, wheezing or asthma Vital Signs Vital Signs Vital Signs: 01/09/21 15:30 01/09/21 15:34 Temperature 98.9 F 98.9 F Temperature Source Temporal Oral Pulse Rate 105 H 105 H Respiratory Rate 20 H Blood Pressure 135/88 H 135/88 H Blood Pressure Mean 103 BP Systolic 135 BP Diastolic 88 Blood Pressure Source Monitor Blood Pressure Position Semi-Fowlers Blood Pressure Location Right Arm Pulse Ox 98 98 Oxygen Delivery Method Room Air Weight Weight: 262 lb 9.129 oz Body Mass Index (BMI) 51.2 Physical Exam Const alert, oriented x3, no apparent distress and healthy appearing General Appearance: cooperative; Negative for anxious HEENT normocephalic Face and Sinus: normal facial exam Eyes EOMs intact bilaterally and no scleral icterus General Eye: normal appearance of both eyes Neck full ROM and supple Lymph Lymphatic: no lymphadenopathy noted Chest Chest: abnormal inspection of the chest Resp normal respiratory effort Effort and Inspection: able to speak in complete sentences Cardio regular rate GI soft to palpation and non-tender Inspection: gravid Palpation: soft; Negative for tender external exam normal Amniotic Fluid: ROM+plus Back/Spine no CVA tenderness Extremity normal to inspection, full ROM and no clubbing, cyanosis or edema General Extremity: Negative for calf tenderness or edema Skin Lesions: no lesions Rashes: no rashes Psych mental status grossly normal Labs Labs Labs: Blood Type A POSITIVE Antibody Screen NEGATIVE Hct 36.1 % (37-47) L Hgb 12.3 g/dL (12.0-15.0) Obstetrics US Syphilis Total Ab Non-reactive Rubella IgG Antibody Reactive (Nonreactive) Hep Bs Antigen Non-Reactive (Nonreactive) Neisseria gonorrhoeae DNA (DAVE) Negative (Negative) HIV 1&2 Antibody Non-Reactive (Nonreactive) Glucose 1 Hr 50 gm 108 mg/dL (70-140) Rhogam given: No Assessment & Plan (1) Supervision of high risk , antepartum: COMMENT: PRR JIM: 01/21/21, boy Ulices PC: Zahra Spouse: Jonah (2) H/O section: COMMENT: plan repeat tonight due to painful contractions.
[2021-01-09] MEDS: Oxytocin 30 units/NS 500 ml 30 UNITS/500 ML IV.SOLN 167 UNITS IV (17:25)
[2021-01-09] MEDS: Ketorolac 30 MG/ML Syringe IV (18:13)
[2021-01-09] MEDS: 0.9% Saline Lock 10 ML Syringe IV (18:14)
[2021-01-09] MEDS: Lactated Ringers 1,000 ML 100 ML IV (20:11)
[2021-01-09] MEDS: HYDROmorphone 0.5 MG/0.5 ML SYRINGE IV (22:17)
[2021-01-10] MEDS: HYDROmorphone 0.5 MG/0.5 ML SYRINGE IV (00:37)
[2021-01-10] MEDS: Ketorolac 30 MG/ML Syringe IV ×3 (01:08→12:41)
[2021-01-10 01:21] VITALS: BP 132/91; PULSE 104; RESP 18; TEMP 36.3; O2SAT 98
[2021-01-10 04:23] VITALS: BP 126/81; PULSE 101; RESP 18; TEMP 36.4; O2SAT 98
[2021-01-10] MEDS: Acetaminophen 500 MG Tablet 1000 MG PO ×4 (04:41→22:29)
[2021-01-10] MEDS: Enoxaparin 40 MG/0.4 ML Syringe SC ×2 (04:46→16:53)
[2021-01-10] MEDS: oxyCODONE 5 MG Tablet PO (05:40)
[2021-01-10] MEDS: 0.9% Saline Lock 10 ML Syringe IV ×2 (06:27→12:41)
[2021-01-10 07:19] LABS: Hematocrit 32.1 % (37-47); Hemoglobin 10.6 g/dL (12.0-15.0); Mean Corpuscular Hgb 28.9 pg (27.0-32.0); Mean Corpuscular Volume 87.5 fL (81-99); Mean Platelet Vol. 10.9 fl (6.2-12.0); Platelet Count 177 K/mm3 (150-450); RBC Distribution Width CV 15.2 % (11.6-14.6); RBC Distribution Width SD 48.3 fl (35.1-43.9); Red Blood Count 3.67 M/mm3 (4.2-5.4)
--- NOTE | 2021-01-10 07:49 | PN.OBGYN_ITS ---
Documented by User: Dr. Cheryle Meza MD 01/10/21 13:01 Subjective Subjective Patient doing well without complaints. Tolerating PO. Ambulating and voiding without difficulty. feeding well. Denies chest pain, shortness of breath, calf pain/swelling, fevers, chills, lightheadedness. Objective Data Objective Data Vital Signs: Vital Signs Temp Pulse Resp BP Pulse Ox 97.6 F L 101 H 18 126/81 H 98 01/10/21 04:23 01/10/21 04:23 01/10/21 04:23 01/10/21 04:23 01/10/21 04:23 Oxygen Delivery Method Room Air Weight: 262 lb 9.129 oz Body Mass Index (BMI) 51.2 Intake & Output: Intake and Output for Last 24 Hours 01/08/21 01/09/21 01/10/21 23:59 23:59 23:59 Intake Total 1730 / 1730 831.67 / 831.67 Output Total 925 / 925 750 / 750 Balance 805 / 805 81.67 / 81.67 Lab / Micro Data Result Diagrams: 01/10/21 07:00 Labs: Laboratory Results - last 24 hr 01/09/21 15:25: WBC 9.4, RBC 4.21, Hgb 12.3, Hct 36.1 L, MCV 85.7, MCH 29.2, MCHC 34.1, RDW Std Deviation 46.2 H, RDW Coeff of Shania 15.1 H, Plt Count 184, MPV 10.8, Immature Gran % (Auto) 0.300, Neut % (Auto) 69.5, Lymph % (Auto) 21.6, [place] % (Auto) 8.0, Eos % (Auto) 0.4, Baso % (Auto) 0.2, Absolute Neuts (auto) 6 .5, Absolute Lymphs (auto) 2.03, Nucleated RBC % 0 01/09/21 15:25: Blood Type A POSITIVE, Antibody Screen NEGATIVE 01/10/21 07:00: WBC 12.0 H, RBC 3.67 L, Hgb 10.6 L, Hct 32.1 L, MCV 87.5, MCH 28.9, MCHC 33.0, RDW Std Deviation 48.3 H, RDW Coeff of Shania 15.2 H, Plt Count 177, MPV 10.9 Micro: Microbiology 01/09/21 15:55 Nasal Secretion SARS-CoV-2 Antigen (Rapid) - Final ROS Constitutional Constitutional: Reports systems reviewed and no addt'l complaints, except as documented Cardiovascular Cardiovascular: Reports systems reviewed and no addt'l complaints, except as documented Respiratory/Chest Respiratory/Chest: Reports systems reviewed and no addt'l complaints, except as documented Gastrointestinal Gastrointestinal: Reports systems reviewed and no addt'l complaints, except as documented Physical Exam Const alert, oriented x3 and no apparent distress HEENT Head and Scalp: atraumatic Resp normal respiratory effort GI soft to palpation and non-tender Inspection: incision intact, healing well and drainage (none) Bimanual Exam - Vag & Uterus: uterus non-tender Uterus Palpation: uterus fundus firm (below Umbilicus) Assessment & Plan (1) delivery delivered: COMMENT: 38 ctx JV/SM RLTCS PLAN: s/p LTCS PPD # 1 1. routine post care 2. breast feeding- support given 3. rh positive 4. rubella immune Documented by User: Dr. Josseline Case DO 01/10/21 07:54 Objective Data Lab / Micro Data Result Diagrams: 01/10/21 07:00
--- NOTE | 2021-01-10 08:56 | PCM.DC ---
Discharge Instructions Diet Discharge Diet: No restrictions Activity Discharge Activity: May Not Drive (for 2 weeks or while taking narcotic pain medications.), May Shower and May Take a Tub Bath (in 7 days.) May resume sexual activity in: 4-6 weeks Weight Bearing Status: Full weight bearing Lifting Restrictions: 20 pounds Dressing / Incision Call your doctor if your incision/area has: Continuous Slow Oozing, Sudden Increased Bleeding, Increased Pain/ Swelling, Increased Redness and Foul Smelling Discharge Call your doctor if you observe: Fever of 101 or Higher and Using more than 1 pad per hour Suture Line Care: Avoid Pulling/Pushing and Avoid Pinching/Bending Cleanse incision/area with: Soap & Water and Keep Dressing Clean & Dry Follow Up Care Please Follow Up With: Josseline Case DO When: Call [phone] to make an appointment for an incision check in 1-2 weeks. Test Results: Test results from this visit will be discussed in further detail at your follow-up appointment, if applicable. Discharge Plan Admission Admit Date/Time: 01/09/21 14:55 Attending Provider: Josseline Case Primary Care Provider: Care Physician,Marilyn Primary Discharge Orders/Prescriptions Prescriptions: No Action cetirizine [Zyrtec] 10 mg Tablet 10 mg PO DAILY RF: 0 1 1 mg Tablet 1 tab PO DAILY RF: 0 ferrous sulfate [iron] 325 mg (65 mg iron) Tablet 325 mg PO DAILY RF: 0 albuterol sulfate 90 mcg/actuation HFA aerosol inhaler 2 puff inhalation Q6H PRN (Reason: shortness of breath or wheezing) Qty: 8.5 RF: 3
--- NOTE | 2021-01-10 08:57 | PCM.DC.SUM ---
Providers Date of Admission: 01/09/21 Primary Care Physician: No Primary Care Phys Reason For Visit: REPEAT C SECTION Diagnosis Discharge Diagnosis (1) delivery delivered: Status: Acute Code(s): O82 - Encounter for delivery without indication Medications at Discharge Home Medications cetirizine [Zyrtec] 10 mg PO DAILY 08/21/20 [id number]-Wz-FA [ 1] 1 tab PO DAILY 09/05/20 albuterol sulfate 90 mcg/actuation aerosol inhaler 2 puff INHALATION Q6H PRN #8.5 g 09/06/20 ferrous sulfate [iron] 325 mg PO DAILY 11/06/20 Hospital Course Operations None and section Summary of Care Provided Minutes Spent on Discharge: 30 Hospital Course: The patient was admitted for a repeat section on 01/09/2021. There were no complications. On day #1 she was tolerating pain well and ambulating, on day #2 she was ready for discharge. Physical Exam HEENT normocephalic Resp normal respiratory effort and normal air movement GI soft to palpation, non-tender and non-distended Rectal Exam: other Other Details: Incision is clean, dry, and intact no CVA tenderness Extremity normal to inspection General Extremity: edema bilateral (trace ) Weight / BMI Weight Weight: 262 lb 9.129 oz Body Mass Index (BMI) 51.2 ABG / Lab / Microbiology Data Result Diagrams: 01/10/21 07:00 Laboratory: Laboratory Results - last 24 hr 01/09/21 15:25: WBC 9.4, RBC 4.21, Hgb 12.3, Hct 36.1 L, MCV 85.7, MCH 29.2, MCHC 34.1, RDW Std Deviation 46.2 H, RDW Coeff of Shania 15.1 H, Plt Count 184, MPV 10.8, Immature Gran % (Auto) 0.300, Neut % (Auto) 69.5, Lymph % (Auto) 21.6, [place] % (Auto) 8.0, Eos % (Auto) 0.4, Baso % (Auto) 0.2, Absolute Neuts (auto) 6.5, Absolute Lymphs (auto) 2.03, Nucleated RBC % 0 01/09/21 15:25: Blood Type A POSITIVE, Antibody Screen NEGATIVE 01/10/21 07:00: WBC 12.0 H, RBC 3.67 L, Hgb 10.6 L, Hct 32.1 L, MCV 87.5, MCH 28.9, MCHC 33.0, RDW Std Deviation 48.3 H, RDW Coeff of Shania 15.2 H, Plt Count 177, MPV 10.9 Microbiology: Microbiology 01/09/21 15:55 Nasal Secretion SARS-CoV-2 Antigen (Rapid) - Final D/C Instructions Discharge Diet: No restrictions May resume sexual activity in: 4-6 weeks Weight Bearing Status: Full weight bearing Call your doctor if your incision/area has: Continuous Slow Oozing, Sudden Increased Bleeding, Increased Pain/ Swelling, Increased Redness and Foul Smelling Discharge Call your doctor if you observe: Fever of 101 or Higher and Using more than 1 pad per hour Suture Line Care: Avoid Pulling/Pushing and Avoid Pinching/Bending Cleanse incision/area with: Soap & Water and Keep Dressing Clean & Dry Please Follow Up With: Josseline Case DO When: Call [phone] to make an appointment for an incision check in 1-2 weeks. Meaningful Use Info Meaningful Use Diagnoses (Choose all that apply): None applicable Discharge Plan Admission Admit Date/Time: 01/09/21 14:55 Attending Provider: Josseline Case Primary Care Provider: Care PhysicianMarilyn Primary Discharge Orders/Prescriptions Prescriptions: No Action cetirizine [Zyrtec] 10 mg Tablet 10 mg PO DAILY RF: 0 1 1 mg Tablet 1 tab PO DAILY RF: 0 ferrous sulfate [iron] 325 mg (65 mg iron) Tablet 325 mg PO DAILY RF: 0 albuterol sulfate 90 mcg/actuation HFA aerosol inhaler 2 puff inhalation Q6H PRN (Reason: shortness of breath or wheezing) Qty: 8.5 RF: 3 Charges/Coding Procedures Urinary/Genital [id number]: [id number] delivery+PP Care([facility])
[2021-01-10 09:10] VITALS: BP 123/73; PULSE 89; RESP 16; TEMP 36.5; O2SAT 97
[2021-01-10] MEDS: DiphenhydrAMINE 25 MG Capsule 50 MG PO (09:20)
[2021-01-10] MEDS: Ferrous Sulfate 325 MG Tablet PO (11:02)
[2021-01-10] MEDS: Prenatal Vits Tablet 1 TABLET PO (11:02)
[2021-01-10] MEDS: Senna/Docusate Sodium 1 Tablet PO (11:02)
[2021-01-10] MEDS: Loratadine 10 MG Tablet PO (11:03)
[2021-01-10 12:00] VITALS: BP 127/82; PULSE 105; RESP 16; TEMP 36.5; O2SAT 98
[2021-01-10 17:17] VITALS: BP 134/78; PULSE 99; RESP 16; TEMP 36.6; O2SAT 98
[2021-01-10] MEDS: Ibuprofen 600 MG Tablet PO ×2 (18:35→23:34)
[2021-01-10 19:56] VITALS: BP 142/82; PULSE 104; RESP 18; TEMP 36.5
[2021-01-11 01:43] VITALS: BP 128/89; PULSE 83; RESP 18; TEMP 36.6
[2021-01-11] MEDS: oxyCODONE 5 MG Tablet PO (01:46)
[2021-01-11] MEDS: Acetaminophen 500 MG Tablet 1000 MG PO ×2 (04:13→11:19)
[2021-01-11] MEDS: Enoxaparin 40 MG/0.4 ML Syringe SC (05:37)
[2021-01-11] MEDS: Ibuprofen 600 MG Tablet PO ×2 (05:37→11:20)
[2021-01-11 07:58] VITALS: BP 121/78; PULSE 91; RESP 16; TEMP 36.1; O2SAT 98
--- NOTE | 2021-01-11 08:18 | PN.OBGYN_ITS ---
Subjective Subjective Patient is sitting up in bed with baby. She states that she only really got less than 4 hours of sleep here last night and is ready to go home. No sob, chest pain, or cough. Pain is minimal and lochia is mild. Objective Data Objective Data Vital Signs: Vital Signs Temp Pulse Resp BP Pulse Ox 97 F L 91 16 121/78 H 98 01/11/21 07:58 01/11/21 07:58 01/11/21 07:58 01/11/21 07:58 01/11/21 07:58 Oxygen Delivery Method Room Air Weight: 262 lb 9.129 oz Body Mass Index (BMI) 51.2 Intake & Output: Intake and Output for Last 24 Hours 01/09/21 01/10/21 01/11/21 23:59 23:59 23:59 Intake Total 1730 / 1730 831.67 / 831.67 Output Total 925 / 925 1350 / 1350 Balance 805 / 805 -518.33 / -518.33 Lab / Micro Data Result Diagrams: 01/10/21 07:00 Micro: Microbiology 01/09/21 15:55 Nasal Secretion SARS-CoV-2 Antigen (Rapid) - Final ROS Constitutional Constitutional: Reports systems reviewed and no addt'l complaints, except as documented; Denies change in weight, fatigue, fever(s), headache(s), poor appetite or weakness Eyes Eyes: Denies blurry vision, change in vision, seeing flashes or spots in vision ENT HEENT: Denies dizziness, headache(s), loss taste/smell or sore throat Cardiovascular Cardiovascular: Reports systems reviewed and no addt'l complaints, except as documented; Denies chest pain, dizziness, dyspnea, irregular heart rhythm, leg edema, palpitations, rapid heart rate or vomiting Respiratory/Chest Respiratory/Chest: Reports systems reviewed and no addt'l complaints, except as documented; Denies chest tightness, cough, dyspnea or breast pain Gastrointestinal Gastrointestinal: Reports systems reviewed and no addt'l complaints, except as documented; Denies abdominal pain, anorexia, constipation, cramping, diarrhea, hemorrhoids, vomiting or weight changes Genitourinary Genitourinary: Denies dysuria, flank pain, genital lesions, genital pain, urinary frequency or urinary urgency Musculoskeletal Musculoskeletal: Denies back pain, difficulty walking, joint pain, limited range of motion, muscle cramps or numbness Integumentary Integumentary: Denies lesions or unusual bruising Neurologic Neurologic: Denies abnormal movements, abnormal speech, dizziness, numbness, seizure-like activity or syncope Psychiatric Psychiatric: Denies anxiety, behavioral changes, change in appetite, change in libido, cognitive impairment, confusion, depression, difficulty concentrating, hallucinations or suicidal thoughts Endocrine Endocrinology: Denies excessive sweating, polydipsia or polyuria Hematologic/Lymphatic Hematologic/Lymphatic: Denies easy bleeding, easy bruising or lymphadenopathy Allergic/Immunologic Allergic/Immunologic: Denies itchy eyes, lip swelling, seasonal rhinorrhea, r hinitis, throat swelling, tongue swelling, eczemia, wheezing or asthma Physical Exam Const alert, oriented x3, no apparent distress and healthy appearing General Appearance: cooperative; Negative for anxious HEENT normocephalic Eyes EOMs intact bilaterally and no scleral icterus General Eye: normal appearance of both eyes Neck full ROM and supple Lymph Lymphatic: no lymphadenopathy noted Chest Chest: abnormal inspection of the chest Resp normal respiratory effort and normal air movement Effort and Inspection: able to speak in complete sentences Cardio regular rate GI soft to palpation, non-tender and non-distended Inspection: gravid Palpation: soft; Negative for tender Rectal Exam: other Other Details: Incision is clean, dry, and intact no CVA tenderness and external exam normal Amniotic Fluid: ROM+plus Back/Spine no CVA tenderness Extremity normal to inspection, full ROM and no clubbing, cyanosis or edema General Extremity: edema bilateral (trace ); Negative for calf tenderness Skin Lesions: no lesions Rashes: no rashes Psych mental status grossly normal Assessment & Plan (1) delivery delivered: COMMENT: 38 ctx JV/SM RLTCS PLAN: plan to dc to home today with percocet and motrin rx. follow up in 2 weeks for incision check.
[2021-01-11] MEDS: Loratadine 10 MG Tablet PO (11:20)
[2021-01-11] MEDS: Prenatal Vits Tablet 1 TABLET PO (11:20)
[2021-01-11] MEDS: Senna/Docusate Sodium 1 Tablet PO (11:20)
[2021-01-11 12:29] VITALS: BP 122/73; PULSE 98; RESP 18; TEMP 36.6
--- NOTE | 2021-01-11 12:37 | CASEMGMT ---
Social Work Brief Assessment Labor and Delivery Unit Patient Address: [facility] [address] [place] [address] Phone number: [phone] Date of Referral/Notification: 01.11.2021 Time of Referral: 520 Referred By: Evie Longoria Date of Intervention: 01.11.2021 Time of Intervention: 1215 Reason for Referral: History of anxiety and depression Informant: Medical record and mother of baby (MOB) Janettetika Cole; father of baby (FOB) Jonah Cole also present. History: MOB is at 25 year old female, to the FOB. No identified concerns regarding domestic violence, and MOB denied concerns for abuse during admission process. MOB and FOB now have 2 children together: Zahra (born 09.04.2017) and baby boy Ulices (born [birth year].). MOB works at a [employer] and FOB works on the family's dairy farm. MOB reports history of depression and anxiety, but mostly anxiety. Denies history of thoughts or harm or suicide. Has history of treatment with Citalopram, but has not in on this medication in some time. Denies any mood issues after Zahra was born, but admits anxiety is something that is often with MOB. MOB reports to talk to the FOB most of the time when feeling anxious. MOB reports additional support from MOB's mom, sister, and then FOB's side of the family lives close by. MOB and FOB both deny and concerns with substance use, neither drink nor use drugs. Assessment: Met with MOB and FOB together, introducing to self and social work role. MOB holding baby during SW visit. MOB attentive, gentle, and appeared to be bonding with the baby as evidenced by gazing at baby and rubbing baby's back. MOB's affect bright, good eye contact, smiling, and relaxed body posture. MOB reports to feel mood and anxiety are stable at this time, but has Citalopram at home to start if MOB starts to notice symptoms. FOB reported that if starts to notice MOB having symptoms will encourage MOB to seek further support. Discussed risk factors for PPD and PPA, importance of seeking out help and support. MOB voiced understanding and agreement. MOB and FOB reports to have all needed infant supplies and support available at home going. FOB attentive during conversation, respectful, and engaged in conversation at appropriate times. No voiced concerns by staff regarding parent/child interactions or bonding. Plan: MOB and baby to discharge home today. Information provided on mood and anxiety disorders, including online/local/reading resource for support. No further needs requested or indicated. -ALBA Curiel, SCHEDULING REPRESENTATIVE
--- NOTE | 2021-01-11 12:43 | NURSING ---
Pt's skin around mepilex showing a rash. Patient states that it is itchy. Reported this finding to Dr. Meza. Order to remove mepilex dressing and leave incision open to air.
== END 2021-01-11 13:10 | disposition home or self-care (01) | DRG 788 ==
PROVIDERS: Admitting Provider Obstetrics & Gynecology; Visit Provider Obstetrics & Gynecology
DX: O34.211 Maternal care for low transverse scar from previous cesarean delivery (principal); O77.0 Labor and delivery complicated by meconium in amniotic fluid; O99.02 Anemia complicating childbirth; D64.9 Anemia, unspecified; Z79.899 Other long term (current) drug therapy; Z3A.38 38 weeks gestation of pregnancy; Z37.0 Single live birth
CPT/HCPCS: 59025; 59050; 85025; 85027; 86850; 86900; 86901; 87426; 96372; 99218; 99251; J7120; A4216; G0378; G0463; J2405

== ENCOUNTER → 2021-01-09 16:05 | Outpatient (CLI) | payer OTHER, SELFPAY | PROVIDERS: Referring Provider Obstetrics & Gynecology; Visit Provider Obstetrics & Gynecology | DX: O09.90 Supervision of high risk pregnancy, unspecified, unspecified trimester (principal); Z3A.00 Weeks of gestation of pregnancy not specified | CPT/HCPCS: 87635; U0005; U0003 ==

== ENCOUNTER → 2021-01-15 | Outpatient (CLI) | payer OTHER, SELFPAY | END | disposition home or self-care (01) | LOC: LABSPEC 16:11 | PROVIDERS: Visit Provider Nurse Practitioner Women's Health | DX: N39.0 Urinary tract infection, site not specified (principal) | CPT/HCPCS: 87086; 87088 ==

== ENCOUNTER → 2021-02-04 | Outpatient (CLI) | payer OTHER, SELFPAY | END | disposition home or self-care (01) | LOC: LABSPEC 16:55 | PROVIDERS: Referring Provider Nurse Practitioner Women's Health; Visit Provider Nurse Practitioner Women's Health | DX: O86.01 Infection of obstetric surgical wound, superficial incisional site (principal) | CPT/HCPCS: 87070; 87077; 87186; 87205 ==

== ENCOUNTER → 2021-02-06 12:46 | Outpatient (CLI) | payer OTHER, SELFPAY ==
[2021-02-06 13:08] LABS: Absolute Neutrophil Count 4.8 X10^3/uL (2.0-7.7); Basophil# 0.03 X10^3/uL; Basophil% 0.3 % (0-1); Eosinophil# 0.43 X10^3/uL; Hematocrit 40.8 % (37-47); Hemoglobin 13.7 g/dL (12.0-15.0); Lymphocyte % 32.5 % (19-41); Mean Corp Hgb Conc 33.6 g/dL (32-36); Mean Corpuscular Hgb 28.4 pg (27.0-32.0); Mean Corpuscular Volume 84.5 fL (81-99); Mean Platelet Vol. 10.3 fl (6.2-12.0); Monocyte# 0.54 X10^3/uL; Monocyte% 6.3 % (0-10); NRBC Flagged by Analyzer 0 % (0-5); Neutrophil % 55.7 % (47-70); Platelet Count 257 K/mm3 (150-450); RBC Distribution Width CV 13.3 % (11.6-14.6); RBC Distribution Width SD 41.2 fl (35.1-43.9); Red Blood Count 4.83 M/mm3 (4.2-5.4); White Blood Count 8.6 K/mm3 (4.4-11.0)
== END ==
PROVIDERS: Referring Provider Obstetrics & Gynecology; Visit Provider Obstetrics & Gynecology
DX: O90.89 Other complications of the puerperium, not elsewhere classified (principal); R51.9 Headache, unspecified
CPT/HCPCS: 36415; 85025; 87635; U0005; U0003

== ENCOUNTER 2021-05-28 05:10 | Emergency (ER) | payer OTHER, MEDICAID, SELFPAY ==
[2021-05-28 05:11] VITALS: BP 143/103; PULSE 103; RESP 18; TEMP 35.6; O2SAT 100; BMI 52.4
[2021-05-28 05:13] VITALS: BP 143/13; PULSE 103; RESP 18; TEMP 35.6; O2SAT 100
--- NOTE | 2021-05-28 05:18 | CT_ITS ---
STUDY: CT SOFT TISSUE NECK WITH CONTRAST REASON FOR EXAM: Female, 26 years old. Sore throat, ? abscess RADIATION DOSAGE (If Supplied By Facility): CTDIvol = ( 21.34 ) mGy, DLP = ( 634.33 ) mGycm TECHNIQUE: The patient was scanned in a multi-detector CT scanner. High resolution transaxial imaging was performed following intravenous administration of IV 75mL Isovue-370. Sagittal and coronal images were reconstructed. Individualized dose optimization techniques were used for this CT. COMPARISON: None. FINDINGS: Normal bilateral parotid glands. Normal bilateral logistics analyst spaces. Normal bilateral parapharyngeal spaces. Normal bilateral carotid spaces. There are numerous lymph nodes bilaterally in that. Normal bilateral sublingual and submandibular glands and spaces. Normal visualized nasopharynx. Normal retropharyngeal space. Normal perivertebral space. Normal visualized bilateral faucial tonsils. The visualized tongue, tongue base and oropharynx are normal. The visualized cervical lymph nodes (levels I-) are within normal size limits, and maintain normal morphology. There is no demonstrated solid or cystic mass lesion. There is no abnormal contrast enhancement. Normal epiglottis, bilateral vallecula and hypopharynx. The pre-epiglottic and paraglottic adipose spaces are normal. Normal visualized bilateral piriform sinuses, aryepiglottic folds, vocal cords, and arytenoid-cricoid articulations. Normal subglottic trachea. Normal bilateral lobes of the thyroid gland. Normal visualized pulmonary apices. Normal visualized paranasal sinuses. Normal visualized cervical spine. CT/Soft Tissue Neck WITH Contrast IMPRESSION: There are numerous lymph nodes bilaterally in the neck Electronically Signed: David Walter MD at 5:53 EDT ,
--- NOTE | 2021-05-28 05:19 | EDS_ITS ---
HPI History of Present Illness Chief Complaint: Sore Throat Informant: patient Narrative Narrative: Patient states she started get a scratchy throat on Thursday. Evidently her child had similar symptoms and is now better. She states she was diagnosed with strep yesterday. But it ends up they did a strep test but results are not back. We do not have access to this. However, they did start her on amoxicillin. It does not sound like she got a dose of Decadron. She states that her throat is very painful. It hurts to swallow. When she swallows she gags so much it almost makes her vomit. She is not having fevers although she started with those. She is also had some mild nasal congestion and a nonproductive cough that she thinks is due to drainage. No facial pain. No immunosuppression. She does not take any routine medications. [facility] Medical History Anemia Asthma Depression heart deceleration Inflammatory bowel disease Non-smoker Oral herpes Home Medications amoxicillin-pot clavulanate 1 tab PO BID 05/28/21 [History Last Taken Unknown] Allergy/AdvReac Type Severity Reaction Status Date / Time No Known Allergies Allergy Verified 05/28/21 05:14 Surgical History delivery delivered H/O colonoscopy H/O myringotomy H/O toe surgery History of cholecystectomy History of esophagogastroduodenoscopy (EGD) History of tonsillectomy Previous section Social History household members: family housing: house number of children: 1 current occupational status: employed Smoking Status: Never smoker second hand exposure: No alcohol intake: never substance use type: does not use caffeine: Yes what type of physical activity do you participate in: walking seatbelt use: always do you feel safe at home: Yes 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 ROS ROS ED Constitutional Constitutional ED: Reports fever(s) and other Details: Patient had fevers initially but now gone ENT ENT ED: Reports ear pain and sore throat; Denies rhinorrhea Cardiovascular Cardiovascular: Denies chest pain Respiratory/Chest Respiratory/Chest: Reports cough; Denies dyspnea or sputum Gastrointestinal Gastrointestinal: Reports nausea; Denies abdominal pain, constipation, diarrhea or vomiting Genitourinary Genitourinary ED: Denies dysuria Musculoskeletal Musculoskeletal: Denies myalgias Integumentary Denies rash Neurologic Neurologic: Denies headache(s), paresthesias or weakness Psychiatric Psychiatric: Reports anxiety and depression Endocrine Endocrinology: Denies polydipsia or polyuria Allergic/Immunologic Allergic/Immunologic ED: Denies urticaria EXAM Physical Exam Const Vital Signs: 05/28/21 05:11 05/28/21 05:13 Temperature 96.1 F L 96.1 F L Temperature Source Temporal Temporal Pulse Rate 103 H 103 H Respiratory Rate 18 18 Blood Pressure 143/103 H 143/13 H Blood Pressure Mean 116 56 Pulse Ox 100 100 Oxygen Delivery Method Room Air Room Air Positive well nourished and well developed General Appearance ED: well developed and NAD; Negative for cyanotic or diaphoretic HEENT Reports moist mucous membranes HEENT Narrative: Bilateral erythema. Slightly worse on the left. Eyes PERRL and EOMs intact bilaterally Neck supple Neck Narrative: Mild bilateral shotty lymph nodes Resp normal respiratory effort and clear to auscultation bilaterally Cardio regular rate and regular rhythm GI normal to inspection, nondistended, normoactive bowel sounds and non-tender Palpation: soft Back/Spine no CVA tenderness Extremity normal to inspection Neuro Sensorium / Orientation: alert; Negative for lethargic or stuporous Psych mental status grossly normal Skin no rashes or lesions noted MDM MDM MDM Narrative Medical decision making narrative: Patient showed normal white count hemoglobin. Electrolytes were overall unremarkable other than minimal rise of sodium to 135. CT scan shows multiple lymph nodes bilaterally but no sign of abscess. Patient is given Decadron here. She has Zofran at home if needed for nausea. I explained that she has sore throat. She is on appropriate medications. This is going to take time to heal. We did discuss reasons to return. Lab Data Attestation: I reviewed the patient's lab results. Labs: Laboratory Results - last 24 hr 05/28/21 05/28/21 05:25 05:25 WBC 7.8 RBC 4.66 Hgb 13.1 Hct 37.8 MCV 81.1 MCH 28.1 MCHC 34.7 RDW Std Deviation 39.8 RDW Coeff of Shania 13.6 Plt Count 242 MPV 10.3 Immature Gran % (Auto) 0.300 Neut % (Auto) 52.2 Lymph % (Auto) 34.9 Citrus % (Auto) 9.5 Eos % (Auto) 2.6 Baso % (Auto) 0.5 Absolute Neuts (auto) 4.1 Absolute Lymphs (auto) 2.73 Nucleated RBC % 0 Sodium 135 L Potassium 3.9 Chloride 103 Carbon Dioxide 26.0 Anion Gap 6 BUN 6 L Creatinine 0.72 Estim Creat Clear Calc 84.30 Est GFR (MDRD) Af Amer 125 Est GFR (MDRD) Non-Af 103 BUN/Creatinine Ratio 8.3 L Glucose 106 Calcium 8.6 Radiography Diagnostic Testing: Clinical Impression(s) from Imaging Studies Soft Tissue Neck CT 05/28/21 05:18 IMPRESSION: There are numerous lymph nodes bilaterally in the neck Electronically Signed: David Walter MD at 5:53 EDT , Discharge Plan Triage Chief Complaint: Sore Throat ED Provider: Johann Abbasi Dx/Rx/DC Orders Clinical Impression: Acute streptococcal pharyngitis, Odynophagia Instructions: ED Pharyngitis, Strep (Presumed) Prescriptions: No Action amoxicillin-pot clavulanate 875-125 mg Tablet 1 tab PO BID RF: 0 Primary Care Provider: Care Physician,No Primary Referrals: Ulices Zuleta MD [STAFF PHYSICIAN] - 3-5 Days if not improving Care Physician,No Primary [Primary Care Provider] - Disposition Disposition: Home, Self Care
[2021-05-28] MEDS: dexAMETHasone 10 MG/ML Vial IV (05:25)
[2021-05-28 05:30] LABS: Absolute Lymphocyte Count 2.73 X10^3/uL (0.83-4.51); Absolute Neutrophil Count 4.1 X10^3/uL (2.0-7.7); Basophil# 0.04 X10^3/uL; Basophil% 0.5 % (0-1); Eosinophils% 2.6 % (0-5); Hematocrit 37.8 % (37-47); Hemoglobin 13.1 g/dL (12.0-15.0); Lymphocyte # 2.73 X10^3/ul (0.83-4.51); Lymphocyte % 34.9 % (19-41); Mean Corp Hgb Conc 34.7 g/dL (32-36); Mean Corpuscular Hgb 28.1 pg (27.0-32.0); Mean Corpuscular Volume 81.1 fL (81-99); Mean Platelet Vol. 10.3 fl (6.2-12.0); Monocyte# 0.74 X10^3/uL; Monocyte% 9.5 % (0-10); NRBC Flagged by Analyzer 0 % (0-5); Neutrophil # 4.09 X10^3/uL (2.7-7.7); Neutrophil % 52.2 % (47-70); Platelet Count 242 K/mm3 (150-450); RBC Distribution Width CV 13.6 % (11.6-14.6); RBC Distribution Width SD 39.8 fl (35.1-43.9); Red Blood Count 4.66 M/mm3 (4.2-5.4); White Blood Count 7.8 K/mm3 (4.4-11.0)
[2021-05-28 05:45] LABS: Anion Gap 6 (5-15); BUN 6 mg/dL (7-18); BUN/Creat Ratio 8.3 RATIO (10-20); Calcium,Total 8.6 mg/dL (8.5-10.1); Chloride 103 mmol/L (98-107); Creatinine, Serum 0.72 mg/dL (0.55-1.02); EST Glomerular Filtration Rate 103 mL/min (>60); Est Glom Filt Rate - Afr Amer 125 mL/min (>60); Glucose 106 mg/dL (74-106); Potassium 3.9 mmol/L (3.5-5.1); Sodium Level 135 mmol/L (136-145)
[2021-05-28 06:22] VITALS: BP 138/60; PULSE 96; RESP 18; O2SAT 97
== END 2021-05-28 06:22 | disposition home or self-care (01) ==
PROVIDERS: Emergency Provider Emergency Medicine; Visit Provider Emergency Medicine
DX: J02.0 Streptococcal pharyngitis (principal); R11.0 Nausea; J45.909 Unspecified asthma, uncomplicated
CPT/HCPCS: 70491; 80048; 85025; 96374; 99283; Q9967; A4216

== ENCOUNTER 2021-06-13 15:04 | Outpatient (CLI) | payer OTHER, MEDICAID, SELFPAY | END 2021-06-13 23:59 | disposition home or self-care (01) | LOC: LABSPEC 15:06 | PROVIDERS: Referring Provider Otolaryngology Otolaryngology/Facial Plastic Surgery; Visit Provider Otolaryngology Otolaryngology/Facial Plastic Surgery | DX: J02.9 Acute pharyngitis, unspecified (principal) | CPT/HCPCS: 87070 ==

== ENCOUNTER → 2021-07-04 | Outpatient (CLI) | payer OTHER, MEDICAID, SELFPAY | END | disposition home or self-care (01) | LOC: LABSPEC 15:24 | PROVIDERS: Visit Provider Otolaryngology | DX: Z20.822 Contact with and (suspected) exposure to COVID-19 (principal) | CPT/HCPCS: 87635; U0003; U0005 ==

== ENCOUNTER 2021-07-08 07:12 | Day surgery (SDC) | payer OTHER, MEDICAID, SELFPAY ==
[2021-07-08] VITALS (8 sets, daily range): BP systolic 86–135; BP diastolic 64–91; PULSE 83–97; RESP 16–18; TEMP 36.3–36.8; O2SAT 94–100; BMI 49.7
[2021-07-08 07:49] LABS: Internal QC Validated? YES +Cl - CLEAR BKGD; Pregnancy, Urine Negative Negative
[2021-07-08] MEDS: Lactated Ringers 1,000 ML 15 ML IV (08:08)
--- NOTE | 2021-07-08 08:44 | PCM.DC.SUM ---
Providers Primary Care Physician: No Primary Care Phys Medications at Discharge Home Medications NK 07/05/21 Weight / BMI Weight Weight: 115.6 kg Body Mass Index (BMI) 49.7 ABG / Lab / Microbiology Data Laboratory: Laboratory Results - last 24 hr 07/08/21 07:31: Urine Test Negative D/C Instructions Discharge Diet: No restrictions Discharge Activity: Return to Normal Activity Additional Dressing/Incision Instructions: Ear drops....5 drops each ear twice a day for 2 days (3 doses) Please Follow Up With: Saúl Shultz MD When: 2-3 weeks Meaningful Use Info Meaningful Use Diagnoses (Choose all that apply): None applicable Discharge Plan Admission Attending Provider: Saúl Shultz Primary Care Provider: Care Physician,No Primary Discharge Orders/Prescriptions Prescriptions: No Action NK RF: 0
--- NOTE | 2021-07-08 08:46 | PCM.OPRPT ---
Report of Operation Date of Procedure: 07/08/21 Pre-Operative Diagnosis: chronic serous otitis media Post-Operative Diagnosis: same Surgery/Procedure Performed:: bilateral myringotomy with tubes Surgeon: Saúl Shultz Type of Anesthesia: General Anesthesiologist: Jason Prado Estimated Blood Loss (mL): minimal Description of Procedure: The patient was taken to the operating room on 07/08/21. The patient was placed in the supine position on the operating room table. The patient was given sufficient general anesthesia. The operating microscope was used throughout the entire case. A speculum was inserted into the patient's left ear. Cerumen was removed using a curette. An incision was placed in the anterior inferior quadrant of the tympanic membrane. Fluid was suctioned from the middle ear space with a 3 suction. A Woo Bobin tube was placed without difficulty. Antibiotic drops were instilled into the patient's ear. Next, a speculum was inserted into the patient's right ear. Cerumen was removed using a curette. An incision was placed in the anterior inferior quadrant of the tympanic membrane. Fluid was suctioned from the middle ear space using a #3 suction. A woo bobin tube was placed without difficulty. Antibiotic drops were instilled into the patient's ear. The patient was then awoken. They were brought to the recovery room in stable condition. Blood loss minimal replacement none sponge needle and instrument counts correct at the end of the procedure.
[2021-07-08] MEDS: Acetaminophen 325 MG Tablet 650 MG PO (10:21)
== END 2021-07-08 10:32 | disposition home or self-care (01) ==
LOC: SDC 07:14 → AC 07:17
PROVIDERS: Anesthesiology; Referring Provider Otolaryngology; Visit Provider Otolaryngology
PROC: (CPT 69421; principal; 2021-07-08 08:25)
DX: H65.23 Chronic serous otitis media, bilateral (principal)
CPT/HCPCS: 69421; 00126; 81025; 94640; J7120; J2405

== ENCOUNTER 2021-11-15 19:39 | Emergency (ER) | payer OTHER, MEDICAID, SELFPAY ==
[2021-11-15 19:41] VITALS: BP 141/93; PULSE 95; RESP 26; TEMP 36.1; O2SAT 98; BMI 48.8
[2021-11-15 19:44] VITALS: BP 141/93; PULSE 95; RESP 26; TEMP 36.1; O2SAT 98
--- NOTE | 2021-11-15 19:51 | ED.VIS.DYS ---
HPI History of Present Illness Chief Complaint: Cough Detail of Chief Complaint: Upper respiratory symptoms with exacerbation of asthma Informant: patient Onset/Context/Timing Onset: Days (Sinus symptoms started 5 days ago, cough 3 days ago) Context: sudden Timing: Continuous Quality: Positive for Dyspnea on exertion and Wheezing Current Severity: Mild Maximum Severity: Severe Worsened by: Exertion and Coughing Relieved by: Nothing Associated Symptoms cough, rhinorrhea, sore throat and white sputum; Negative for post nasal drip, ear pain, fever, subjective, chills, sweats, clear sputum, yellow sputum or green sputum Chest Pain: Positive for None Narrative Narrative: Patient is a 26-year-old with history of asthma who self diagnosed herself is having an sinus infection . She has a cough productive of white-colored sputum. She is presently on prednisone. [facility] and administered a steroid injection. She states the fluid was clear. She does not know what the name of the medicine was. She is taking 2 prednisone tablets a day for 3 days and then tapering down. She denies fever, chills night sweats. She denies GI symptoms. PE Risk Factors: Negative for Cancer, OCP + Smoking + > 35, Prior DVT or PE, Recent immobilization, Recent surgery or Recent travel Prior similar symptoms: Yes Recent Illness/Hospitalization: Yes PFSH PFSH Medical History Anemia Asthma Depression heart deceleration Gastric reflux Hypertension Inflammatory bowel disease Low iron Non-smoker Oral herpes Home Medications inhalational spacing device (Aerochamber MV spacer) #1 ea 11/15/21 [Rx Last Taken Unknown] Allergy/AdvReac Type Severity Reaction Status Date / Time No Known Allergies Allergy Verified 07/08/21 07:43 Surgical History delivery delivered H/O colonoscopy H/O myringotomy H/O toe surgery History of cholecystectomy History of esophagogastroduodenoscopy (EGD) History of tonsillectomy Previous section Social History household members: family housing: house number of children: 1 current occupational status: employed Smoking Status: Never smoker second hand exposure: No alcohol intake: never substance use type: does not use caffeine: Yes what type of physical activity do you participate in: walking seatbelt use: always do you feel safe at home: Yes 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 ROS ROS ED Constitutional Constitutional ED: Denies chills, fever(s), sweats or weight loss Eyes Eyes: Denies blurry vision, change in vision or diplopia ENT ENT ED: Reports rhinorrhea and sore throat; Denies ear pain Cardiovascular Cardiovascular: Denies chest pain, orthopnea, palpitations, paroxysmal nocturnal dyspnea or racing heartbeat Respiratory/Chest Respiratory/Chest: Reports cough, dyspnea, dyspnea on exertion and sputum; Denies orthopnea or paroxysmal nocturnal dyspnea Gastrointestinal Gastrointestinal: Denies abdominal pain, constipation or nausea Genitourinary Genitourinary ED: Denies dysuria, hematuria or urinary frequency Musculoskeletal Musculoskeletal: Denies arthralgias or myalgias Neurologic Neurologic: Denies headache(s) or paresthesias Hematologic/Lymphatic Hematologic/Lymphatic: Denies easy bleeding or easy bruising EXAM Physical Exam Const Vital Signs: 11/15/21 19:41 11/15/21 19:44 11/15/21 19:48 Temperature 97.0 F L 97.0 F L Temperature Source Temporal Temporal Pulse Rate 95 95 Respiratory Rate 26 H 26 H Respiratory Effort Short of Breath Respiratory Depth Normal Respiratory Pattern Normal Blood Pressure 141/93 H 141/93 H Blood Pressure Mean 109 109 Pulse Ox 98 98 Oxygen Delivery Method Room Air Room Air 11/15/21 19:55 Temperature Temperature Source Pulse Rate 126 H Respiratory Rate 25 H Respiratory Effort Respiratory Depth Respiratory Pattern Blood Pressure Blood Pressure Mean Pulse Ox Oxygen Delivery Method Positive well nourished, well developed and obese General Appearance ED: well developed and NAD; Negative for pallor Nutritional Appearance: obese HEENT Reports moist mucous membranes HEENT Narrative: Ears normal. Nares patent. Uvula midline. No deviation tongue or protrusion. No erythema or exudate. atraumatic Eyes PERRL and EOMs intact bilaterally General Eye ED: Negative for pale conjunctiva or scleral icterus Neck no lymphadenopathy, supple and no meningeal signs Neck Narrative: Trachea is midline. There is no in-store expiratory stridor. Resp normal respiratory effort and No clear to auscultation bilaterally Auscultation: wheezes expiratory wheezes (Bilateral) Cardio regular rate, regular rhythm, S1 normal heart sound, S2 normal heart sound and no murmurs GI Auscultation: normoactive bowel sounds, hyperactive bowel sounds and hypoactive bowel sounds Extremity normal to inspection General Extremety ED: Negative for edema or tenderness General Extremity: Negative for edema Neuro oriented x3, CN's II-XII intact bilaterally and no sensory deficits noted Sensorium / Orientation: alert Psych mental status grossly normal Skin no wounds and skin turgor normal General Skin Exam: Negative for jaundice or pallor MDM MDM MDM Narrative Medical decision making narrative: Patient presents with upper respiratory symptoms causing exacerbation of her asthma. She was treated with DuoNeb, albuterol and prednisone. Imaging was not obtained. Since there is no inspiratory rales and symptoms started less than 1 week ago imaging is not warranted. Patient was reassessed at 2116. She is wheeze free. She was informed that she can use her inhaler more frequently every 4-6 hours. Since she does not have a spacer 1 was prescribed for her. She was informed that 4 puffs with a spacer is equivalent to a aerosol treatment and she may repeat in 15 minutes. If no improvement then return to the emergency department. She was instructed to continue taking the prednisone until gone. Discharge Plan Triage Chief Complaint: Cough ED Provider: Dontae Bear Dx/Rx/DC Orders Clinical Impression: Acute exacerbation of asthma with allergic rhinitis, Iron deficiency anemia, Obesity Instructions: ED Asthma, Acute (Adult), ED Inhaler Use Prescriptions: New (DME) Aerochamber MV Spacer See Rx Instructions .Route Qty: 1 0RF Rx Instructions: As directed Primary Care Provider: Care Physician,No Primary Referrals: Care Physician,No Primary [Primary Care Provider] - Doctor,Your [Non-Staff] - 3-5 Days if not improving Disposition Disposition: Home, Self Care
[2021-11-15 19:55] VITALS: PULSE 126; RESP 25
[2021-11-15] MEDS: Ipratropium/Albuterol Sulfate 3 ML AMPUL.NEB INHALATION (19:55)
[2021-11-15] MEDS: Albuterol 2.5 MG/3 ML VIAL.NEB. INHALATION ×3 (19:55→20:23)
[2021-11-15] MEDS: Benzonatate 100 MG Capsule 200 MG PO (19:56)
== END 2021-11-15 21:27 | disposition home or self-care (01) ==
PROVIDERS: Emergency Provider Emergency Medicine; Visit Provider Emergency Medicine
DX: J45.901 Unspecified asthma with (acute) exacerbation (principal); I10 Essential (primary) hypertension; D50.9 Iron deficiency anemia, unspecified; J02.9 Acute pharyngitis, unspecified; K21.9 Gastro-esophageal reflux disease without esophagitis; F32.A Depression, unspecified; E66.9 Obesity, unspecified
CPT/HCPCS: 94640; 99284

== ENCOUNTER → 2021-11-19 | Outpatient (CLI) | payer OTHER, MEDICAID, SELFPAY ==
[2021-11-19 16:49] LABS: Absolute Lymphocyte Count 3.74 X10^3/uL (0.83-4.51); Absolute Neutrophil Count 6.5 X10^3/uL (2.0-7.7); Basophil# 0.03 X10^3/uL; Basophil% 0.3 % (0-1); Eosinophils% 1.8 % (0-5); Hemoglobin 12.5 g/dL (12.0-15.0); Lymphocyte # 3.74 X10^3/ul (0.83-4.51); Lymphocyte % 33.2 % (19-41); Mean Corp Hgb Conc 32.1 g/dL (32-36); Mean Platelet Vol. 10.4 fl (6.2-12.0); Monocyte# 0.79 X10^3/uL; NRBC Flagged by Analyzer 0 % (0-5); Neutrophil # 6.47 X10^3/uL (2.7-7.7); Neutrophil % 57.3 % (47-70); Platelet Count 347 K/mm3 (150-450); RBC Distribution Width CV 14.7 % (11.6-14.6); RBC Distribution Width SD 41.1 fl (35.1-43.9); White Blood Count 11.3 K/mm3 (4.4-11.0)
[2021-11-19 16:50] LABS: Erythrocyte Sedimentation Rate 47 mm/hr (0-30)
[2021-11-19 17:16] LABS: Vitamin D,25 Hydroxy 15.6 ng/mL
[2021-11-19 17:25] LABS: ALB/GLOB Ratio 0.8 RATIO (0.9-2.4); AST(SGOT) 12 U/L (15-37); Alanine Aminotransfer ALT/SGPT 27 U/L (13-56); Albumin, Serum 3.4 g/dL (3.2-5.0); Alkaline Phosphatase 98 U/L (45-117); Anion Gap 7 (5-15); BUN 14 mg/dL (7-18); BUN/Creat Ratio 16.1 RATIO (10-20); CRP 8.76 mg/L (0.0-3.0); Calcium,Total 9.4 mg/dL (8.5-10.1); Chloride 106 mmol/L (98-107); Cholesterol 167 mg/dL (200); Creatinine, Serum 0.87 mg/dL (0.55-1.02); EST Glomerular Filtration Rate 83 mL/min (>60); Est Glom Filt Rate - Afr Amer 100 mL/min (>60); Ferritin 16 ng/mL (8-252); Free T3 3.2 pg/mL (2.18-3.98); Globulin 4.3 g/dL (2.2-4.2); Glucose 93 mg/dL (74-106); High Density Lipoprotein 45 mg/dL; Iron 38 ug/dL (50-170); Iron Binding Capacity,Total 358 ug/dL (250-450); PERCENT IRON SATURATION 10.6 % (15.0-55.0); Protein, Total 7.7 g/dL (6.4-8.2); Sodium Level 138 mmol/L (136-145); T4 Free Direct 1.09 ng/dL (0.76-1.46); Thyroid Stim Hormone (TSH) 1.96 uIU/mL (0.358-3.74); Triglycerides 243 mg/dL; Very Low Density Lipoprotein 49 mg/dL (5-40)
[2021-11-21 16:09] LABS: Endomysial Antibody IgA Negative (Negative)
[2021-11-21 16:34] LABS: Deamidated Gliadin IgA 3 units (0-19); Deamidated Gliadin IgG 2 units (0-19); Immunoglobulin A 325 mg/dL (87-352); t-Transglutaminase IgA <2 U/mL (0-3)
== END | disposition home or self-care (01) ==
LOC: BIMLAB 15:59
PROVIDERS: PCP Internal Medicine; Referring Provider Internal Medicine; Visit Provider Internal Medicine
DX: D64.9 Anemia, unspecified (principal); F32.9 Major depressive disorder, single episode, unspecified
CPT/HCPCS: 36415; 80053; 80061; 82306; 82728; 82784; 83516; 83540; 83550; 84439; 84443; 84481; 85025; 85652; 86140; 86255

== ENCOUNTER → 2021-11-22 | Outpatient (CLI) | payer OTHER, MEDICAID, SELFPAY ==
--- NOTE | 2021-11-22 11:59 | RAD_ITS ---
STUDY: X-RAY CHEST REASON FOR EXAM: Female, 26 years old. Cough. History of asthma. TECHNIQUE: PA and lateral views of the chest. COMPARISON: None. FINDINGS: The lungs are clear and expanded. Scattered calcified granulomas. There is no demonstrated pleural abnormality. Normal size heart. Normal mediastinum and keron. Normal visualized pulmonary arteries. Normal visualized aortic arch and descending thoracic aorta. Normal visualized thoracic spine. Normal visualized ribs, clavicles, and shoulders. There is no demonstrated abnormality of the visualized soft tissue structures of the upper abdomen. RAD/Chest PA and Lateral IMPRESSION: Normal x-ray examination of the chest. Electronically Signed: Mukesh Almanzar MD at 12:26 EDT ,
== END | disposition home or self-care (01) ==
LOC: MTRAD 11:59
PROVIDERS: PCP Nurse Practitioner Family; Referring Provider Nurse Practitioner Family; Visit Provider Nurse Practitioner Family
DX: R05.9 Cough, unspecified (principal)
CPT/HCPCS: 71046

== ENCOUNTER → 2022-01-14 | Outpatient (CLI) | payer OTHER, MEDICAID, SELFPAY ==
[2022-01-14 11:09] LABS: Absolute Lymphocyte Count 2.34 X10^3/uL (0.83-4.51); Absolute Neutrophil Count 3.6 X10^3/uL (2.0-7.7); Basophil# 0.02 X10^3/uL; Basophil% 0.3 % (0-1); Eosinophil# 0.08 X10^3/uL; Eosinophils% 1.2 % (0-5); Hemoglobin 11.4 g/dL (12.0-15.0); Lymphocyte # 2.34 X10^3/ul (0.83-4.51); Lymphocyte % 35.5 % (19-41); Mean Corp Hgb Conc 31.7 g/dL (32-36); Mean Corpuscular Hgb 24.3 pg (27.0-32.0); Mean Corpuscular Volume 76.6 fL (81-99); Mean Platelet Vol. 10.3 fl (6.2-12.0); Monocyte# 0.57 X10^3/uL; Monocyte% 8.6 % (0-10); NRBC Flagged by Analyzer 0 % (0-5); Neutrophil # 3.57 X10^3/uL (2.7-7.7); Neutrophil % 54.2 % (47-70); Platelet Count 267 K/mm3 (150-450); White Blood Count 6.6 K/mm3 (4.4-11.0)
[2022-01-21 04:07] LABS: Aspirgillus flavus Negative (Neg:<1:1); Aspirgillus fumigatus Negative (Neg:<1:1); Aspirgillus niger Negative (Neg:<1:1); Cytoplasmic Ab (C-ANCA) <1:20 titer (Neg:<1:20)
[2022-01-21 14:27] LABS: Immunoglobulin E 56 IU/mL (6-495); Perinuclear Ab (P-ANCA) <1:20 titer (Neg:<1:20)
== END | disposition home or self-care (01) ==
PROVIDERS: PCP Nurse Practitioner Family; Referring Provider Internal Medicine Critical Care Medicine; Visit Provider Internal Medicine Critical Care Medicine
DX: J45.909 Unspecified asthma, uncomplicated (principal)
CPT/HCPCS: 36415; 82785; 85025; 86256; 86606

== ENCOUNTER → 2023-01-22 | Outpatient (CLI) | payer OTHER, MEDICAID, SELFPAY ==
[2023-01-22 12:22] LABS: Absolute Lymphocyte Count 2.42 X10^3/uL (0.83-4.51); Absolute Neutrophil Count 3.6 X10^3/uL (2.0-7.7); Basophil# 0.04 X10^3/uL; Basophil% 0.6 % (0-1); Eosinophil# 0.14 X10^3/uL; Eosinophils% 2.1 % (0-5); Hematocrit 32.1 % (37-47); Hemoglobin 9.1 g/dL (12.0-15.0); Lymphocyte # 2.42 X10^3/ul (0.83-4.51); Lymphocyte % 35.9 % (19-41); Mean Corp Hgb Conc 28.3 g/dL (32-36); Mean Corpuscular Volume 70.7 fL (81-99); Mean Platelet Vol. 10.1 fl (6.2-12.0); Monocyte# 0.57 X10^3/uL; Monocyte% 8.5 % (0-10); NRBC Flagged by Analyzer 0 % (0-5); Neutrophil # 3.56 X10^3/uL (2.7-7.7); Neutrophil % 52.8 % (47-70); Platelet Count 302 K/mm3 (150-450); RBC Distribution Width CV 18.7 % (11.6-14.6); Red Blood Count 4.54 M/mm3 (4.2-5.4); White Blood Count 6.7 K/mm3 (4.4-11.0)
[2023-01-22 12:49] LABS: Vitamin D,25 Hydroxy 35.2 ng/mL
[2023-01-22 12:55] LABS: ALB/GLOB Ratio 0.8 RATIO (0.9-2.4); AST(SGOT) 13 U/L (15-37); Alanine Aminotransfer ALT/SGPT 22 U/L (13-56); Albumin, Serum 3.4 g/dL (3.2-5.0); Alkaline Phosphatase 91 U/L (45-117); Anion Gap 4 (5-15); BUN 13 mg/dL (7-18); BUN/Creat Ratio 16.5 RATIO (10-20); Calcium,Total 8.5 mg/dL (8.5-10.1); Chloride 109 mmol/L (98-107); Cholesterol 134 mg/dL (200); Creatinine, Serum 0.79 mg/dL (0.55-1.02); EST Glomerular Filtration Rate 92 mL/min (>60); Est Glom Filt Rate - Afr Amer 111 mL/min (>60); Ferritin 5 ng/mL (8-252); Glucose 100 mg/dL (74-106); High Density Lipoprotein 61 mg/dL; Iron 23 ug/dL (50-170); Iron Binding Capacity,Total 420 ug/dL (250-450); PERCENT IRON SATURATION 5.5 % (15.0-55.0); Potassium 3.9 mmol/L (3.5-5.1); Protein, Total 7.4 g/dL (6.4-8.2); Sodium Level 141 mmol/L (136-145); Triglycerides 80 mg/dL; Very Low Density Lipoprotein 16 mg/dL (5-40)
== END | disposition home or self-care (01) ==
LOC: BIMLAB 10:00
PROVIDERS: PCP Internal Medicine; Referring Provider Internal Medicine; Visit Provider Internal Medicine
DX: E55.9 Vitamin D deficiency, unspecified (principal); D50.9 Iron deficiency anemia, unspecified; F41.9 Anxiety disorder, unspecified; E78.2 Mixed hyperlipidemia
CPT/HCPCS: 36415; 80053; 80061; 82306; 82728; 83540; 83550; 85025

== ENCOUNTER → 2023-03-18 | Outpatient (CLI) | payer OTHER, MEDICAID, SELFPAY ==
--- OUTSIDE RECORDS SUMMARY | 2023-03-18 12:01 | XMS RPT_ITS | CCD ---
Author Name Unknown Address [address] [place] [address] Organization [facility] Results Test Name Value Interpretation Reference Range Facil ity Summary Purpose Family History No Family History Records Found Advance Directives No Advanced Directives Records Found Additional Source Comments INFORMATION SOURCE (unrecogn ized section and content) FOR RECORDS PERTAINING TO PATIENTS WHO ARE OR HAVE BEEN ENROLLED IN A CHEMICAL DEPENDENCY/SUBSTANCEABUSE PROGRAM, SOME INFORMATION MAY BE OMITTED. This clinical summary was aggregated from multiple sources. Caution should be exercised in using it in the provision of clinical care. This summary normalizes information from multiple sources, and as a consequence, information in this document may materially change the coding, format and clinical context of patient data. In addition, data may be omitted in some cases. CLINICAL DECISIONS SHOULD BE BASED ON THE PRIMARY CLINICAL RECORDS. [employer] provides no warranty or guarantee of the accuracy or completeness of information in this document.
[2023-03-18 12:36] LABS: Absolute Lymphocyte Count 2.22 X10^3/uL (0.83-4.51); Basophil# 0.03 X10^3/uL; Basophil% 0.5 % (0-1); Eosinophil# 0.13 X10^3/uL; Eosinophils% 2.2 % (0-5); Hematocrit 31.5 % (37-47); Hemoglobin 8.9 g/dL (12.0-15.0); Lymphocyte # 2.22 X10^3/ul (0.83-4.51); Lymphocyte % 37.6 % (19-41); Mean Corp Hgb Conc 28.3 g/dL (32-36); Mean Corpuscular Hgb 19.5 pg (27.0-32.0); Mean Corpuscular Volume 69.1 fL (81-99); Mean Platelet Vol. 10.3 fl (6.2-12.0); Monocyte% 8.5 % (0-10); NRBC Flagged by Analyzer 0 % (0-5); Neutrophil # 3.02 X10^3/uL (2.7-7.7); Platelet Count 293 K/mm3 (150-450); RBC Distribution Width CV 18.6 % (11.6-14.6); Red Blood Count 4.56 M/mm3 (4.2-5.4); White Blood Count 5.9 K/mm3 (4.4-11.0)
[2023-03-18 13:21] LABS: Ferritin 4 ng/mL (8-252); Iron 16 ug/dL (50-170); Iron Binding Capacity,Total 392 ug/dL (250-450); PERCENT IRON SATURATION 4.1 % (15.0-55.0)
== END | disposition home or self-care (01) ==
LOC: BIMLAB 11:29
PROVIDERS: PCP Internal Medicine; Referring Provider Internal Medicine; Visit Provider Internal Medicine
DX: D50.9 Iron deficiency anemia, unspecified (principal)
CPT/HCPCS: 36415; 82728; 83540; 83550; 85025

== ENCOUNTER 2023-03-31 13:04 | Outpatient (CLI) | payer OTHER, MEDICAID, SELFPAY ==
[2023-03-31] MEDS: 0.9% NaCl Peripheral Flush Adult/Peds IV (13:17)
[2023-03-31 13:18] VITALS: BP 122/87; PULSE 91; RESP 16; TEMP 36.3; O2SAT 100; BMI 41.7
--- OUTSIDE RECORDS SUMMARY | 2023-03-31 13:26 | XMS RPT_ITS | CCD ---
Author Name Unknown Address [address] [place] [address] Organization [facility] Results Test Name Value Interpretation [...] BE BASED ON THE PRIMARY CLINICAL RECORDS. [email or web address] provides no warranty or guarantee of the accuracy or completeness of information in this document.
[2023-03-31] MEDS: 0.9% NaCl IVPB Med Flush (250 mL) 15 ML IV (13:35)
[2023-03-31] MEDS: Sodium Ferric Gluconat/Sucrose 125 MG in 0.9% Normal Saline (100mL Bag) 100 ML 110 MG IV (13:35)
[2023-03-31 15:04] VITALS: BP 135/79; PULSE 77; RESP 16; TEMP 36.8; O2SAT 100
== END 2023-03-31 13:05 | disposition home or self-care (01) ==
LOC: MEDOUTP 13:05
PROVIDERS: PCP Internal Medicine; Referring Provider Internal Medicine; Visit Provider Internal Medicine
DX: D50.9 Iron deficiency anemia, unspecified (principal)
CPT/HCPCS: 96365; J7050; A4216; J2916

== ENCOUNTER → 2023-04-16 | Outpatient (CLI) | payer OTHER, MEDICAID, SELFPAY ==
--- NOTE | 2023-04-16 18:54 | CT_ITS ---
STUDY: CT BRAIN WITHOUT CONTRAST REASON FOR EXAM: Female, 28 years old. fall, head injury RADIATION DOSAGE (If Supplied By Facility): CTDIvol = ( 44.99 ) mGy, DLP = ( 745.49 ) mGycm TECHNIQUE: Transaxial CT imaging of the brain was performed without administration of intravenous contrast material. Individualized dose optimization techniques were used for this CT. COMPARISON: No relevant priors. FINDINGS: Normal soft tissue structures. Normal calvarium. Normal size ventricles and extra-axial spaces for the patient''s age. Normal white matter tracts of the cerebral hemispheres. Normal basal ganglia and thalami. Normal brainstem. Normal cerebellum. There is no intracranial hemorrhage. There are no findings of an acute ischemic infarction. Normal visualized paranasal sinuses. CT/Brain/Head without Contrast IMPRESSION: Normal unenhanced CT scan of the brain. Electronically Signed: Lynne Herrera MD at 22:28 EST ,
--- OUTSIDE RECORDS SUMMARY | 2023-04-16 19:04 | XMS RPT_ITS | CCD ---
Author Name Unknown Address [address] [place] [address] Organization [facility] Results Test Name Value Interpretation [...] BE BASED ON THE PRIMARY CLINICAL RECORDS. [employer] provides no warranty or guarantee of the accuracy or completeness of information in this document.
== END | disposition home or self-care (01) ==
LOC: CT 18:54
PROVIDERS: PCP Internal Medicine; Referring Provider Internal Medicine; Visit Provider Internal Medicine
DX: S06.0XAA Concussion with loss of consciousness status unknown, initial encounter (principal); S09.90XA Unspecified injury of head, initial encounter; X58.XXXA Exposure to other specified factors, initial encounter
CPT/HCPCS: 70450

== ENCOUNTER 2023-06-02 12:30 | Outpatient (RCR) | payer OTHER, MEDICAID, SELFPAY ==
--- NOTE | 2023-04-16 15:00 | HP.PTEVAL ---
Patient's Visit Information Visit Information Visit Information: ДМИТРИЙ CAMPO is a 28 year old F referred to Physical Therapy by Dr. Rhina Kulkarni MD with a diagnosis of CONCUSSION, HEAD INJURY AND NECK PAIN. Date of Evaluation: 04/16/23 Physical Therapist: Morena Muse, PT, Cert MDT Visit Plan Frequency: 2-3x /Week Duration: 6-8 WKS Plan: FOLLOW UP WITH PT NEXT VISIT. CHECK CAT SCAN RESULTS. RE-ASSESSMENT OF CURRENT SYMPTOMS AND REVISE POC NEEDED. CHECK AUTH AND SCHEDULE FOLLOW UP VISITS. POSTURE TRAINING. SCAPULAR STRENGTHENING AND STABILIZATION. SHLD ROM CERVICAL ROM MODALITIES FOR NECK AND SHOULDER PAIN NEEDED. 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 OFF WORK SINCE MAR 24 2023. UNABLE TO WORK DUE TO FALL SINCE APR 05 2023. 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 LIVES ON A BIG FARM AND NORMALY HELPS WITH FARM CHORES. HAS 2 CHILDREN AGES 5 AND 2. Disability: NO Present symptoms: CONFUSION, HEADACHES, NECK PAIN, BACK PAIN, HIP PAIN - BOTH. SENSATIVITY TO LIGHT. PATIENT REPORTS WEAKNESS IN ARMS BUT DENIES JOSE D UE NUMBNESS AND TINGLING. Getting Better, Getting Worse or Staying the Same: PATIENT REPORTS HER HEAD AND NECK SYMPTOMS ARE GETTING A LITTLE BIT BETTER BUT SHE IS STILL CONSTISTANTLY HAVING THEM. SHE REPORTS SHE IS ON MORE MUSCLE RELAXERS NOW (2 A DAY). Present since: 04/05/23. Pain Scale: Worst - 6/10 Least - 2/10 Currently: 3/10 Commenced as a result of: FALL. SLIPPED ON MUD AT PARENTS HOUSE ON [address]. FELL BACKWARDS AND EVERYTHING HIT THE GROUND HARD AND FAST. Symptoms at onset: RINGING IN EARS AND PAIN IN HEAD, NECK AND BACK. Worse: DRIVING, BENDING DOWN AND COMING UP TOO FAST INCREASES HEAD PAIN, SHOWERING. Better: NOTHING. Disturbed sleep: YES Previous history/Previous treatment: UNREMARKABLE. This episode: MUSCLE RELAXERS. 2 CHIROPRACTIC TREATMENTS - I'VE BEEN GETTING EXTREME HEADACHES FROM IT. PATIENT REPORTS SHE DECIDED ON HER OWN TO GO TO THE [facility]OPRACTOR. Dizziness: JUST WHEN I COME BACK UP FROM BENDING DOWN Tinnitus: NO Nausea: NO Shortness of Breath: NO Difficulty Swollowing: NO Gait: NORMAL Accidents: NO Unexplained weight loss: NO Imaging: PATIENT REPORTS SHE HAS A CAT SCAN SCHEDULED TODAY. NECK X-RAYS [facility] ORDERED BY DR. KULKARNI - 04/07/23: IMPRESSION: Normal x-ray examination of the visualized cervical spine. PATIENT REPORTS SHE ALSO HAD X-RAY BY THE CHIROPRACTOR 04/09/23 AND THEY SHOWED A PINCH IN THE TOP OF HER NECK AND SCOLIOSIS. PMH/Recent major surgery: HARD OF HEARING - REPORTS SHE IS GETTING HEARING AIDS THIS MONTH. OTHER: PATIENT REPORTS SHE DROVE HERSELF HERE TO PT TODAY. Objective Objective: Sitting Posture/Standing Posture: FORWARD HEAD AND ROUNDED SHOULDERS. NO TORTICOLLIS. Active Correction of posture: ABLE TO CORRECT BUT NOT MAINTAIN. INCREASES C/O NECK PAIN. Other Observations: INDEP GAIT INTO PT WITH NO GROSS DEVIATIONS NOTED OTHER THAN DECREASED CADANCE. Sensory deficit: JOSE D UE LIGHT TOUCH SENSATION GROSSLY INTACT AND SYMMETRICAL ROM deficit: APPROX 25% DECREASED ARM ELEVATION JOSE D AND ATTEMPS ELEVATING ARMS PRODUCES INCREASED C/O JOSE D NECK PAIN. Motor deficit: PATIENT IS R HAND DOMINANT WITH A R SCHOOL OF NURSING DIRECTOR STRENGTH OF 38 LBS AND LEFT 35 LBS. JOSE D SHLD'S 3-/5, ELBOW'S 5/5. SHLD STRENGTH TESTING APPEARS TO BE PAIN LIMITED BUT PATIENT DENIES INCREASED PAIN WITH ELBOW AND SCHOOL OF NURSING DIRECTOR STRENGTH TESTING. Reflexes: JOSE D UE DTR'S 2/3. Dural Signs: NEGATIVE JOSE D UE'S. Cervical Mvmt Loss: Flex: MOD - C/O INCREASED NECK PAIN AND PRESSURE IN THE FRONT OF HER HEAD - NW Pro: NIL - P PAIN BEHIND R EAR - NW Ext: JOSE MARIA - P BLURRING VISION -NW Ret: MOD - P PAIN BEHIND JOSE D EARS - NW RSB: NIL - NE LSB: MIN - NE R Rot: NIL - NE L Rot: MIIN - P NECK PAIN - NW Postural strength: FAIR Palpation: VERY TENDER WITH LIGHT PALPATION OF UPPER THORACIC, CERVICAL AND OCCIPUT REGIONS. MILD UT TENDERNESS JOSE D. SHLD'S NOT TENDER. OTHERWISE SPINE NT TODAY. OTHER: PATIENT IS A GOOD HISTORIAN TODAY AND FOLLOWS COMMANDS WELL DURING THE EVALUATION. Balance/Special Test Scores Oswestry Neck Score: 31 Goals Goal 1:: DECREASE C/O HEAD AND NECK SYMPTOMS BY AT LEAST 75% TO EASE ADL'S. Goal Time Frame: 4-6 Weeks Goal 2:: RESTORE FULL CERVICAL ROM ALL PLANES TO ASSIST IN RETURN TO PLOF Goal Time Frame: 6-8 Weeks Goal 3:: PATIENT WILL HAVE FULL JOSE D UE ROM ALL PLANES TO EASE ADL'S Goal Time Frame: 4-6 Weeks Goal 4:: RESTORE FULL STRENGTH JOSE D UE'S TO ASSIST WITH RETURN TO PLOF Goal Time Frame: 6-8 Weeks Goal 5:: PATIENT WILL SCORE AT LEAST 8 POINTS BETTER ON NECK OSWESTRY TO SHOW IMPROVED FUNCTION Goal Time Frame: 6-8 Weeks Goal 6:: PATIENT WILL BE INDEP WITH A HEP FOR CONTINUED IMPROVEMENT ONCE FORMAL PHYSICAL THERAPY CONCLUDES. Goal Time Frame: 6-8 Weeks Rehabilitation Potential Physical Therapy Diagnosis: THIS PATIENT PRESENTS TO PT S/P FALL 04/05/23 WITH C/O HEAD,NECK, BACK AND HIP SYMPTOMS. HER HEAD AND NECK SYMTOMS WERE EVALUTATED TODAY. SHE EXHIBITS DECREASED NECK, POSTURE AND SHLD ROM ALONG WITH SHOULDER AND POSTURAL WEAKNESS. C/O HEAD PRESSURE AND BLURRY VISION WITH CERVICAL ROM TESTING. Rehabilitation Potential: Good Anticipated Interventions Patient/Client Instruction: Educate patient on: Condition, Plan of Care and Risk Factors For the Purpose of:: To improve self management Therapeutic Exercise to Include: Strength training, Body mechanics, Postural training, Flexibilty training, Neuromotor development and Scapular Strength/Stabilization For the Purpose of:: To decrease pain, To increase ROM, To improve muscle performance and motor function, To increase tolerance to activity/condition/position and To improve ability of physical actions for home/community/work/leisure Manual Therapy Techniques to Include: Passive ROM and Soft tissue mobilization TENS: Yes IF ES: Yes Cryotherapy (ice pack, ice massage): Yes Thermo therapy (hot pack): Yes Ultrasound (thermal/non thermal): Yes For the Purpose of:: To decrease pain, To decrease swelling/inflammation and To improve nutrient delivery to tissue Text: Thank you for the opportunity to evaluate your patient. For Medicare and Medicare HMO plans, please review the plan of care and approve it. It will need to be FAXED BACK to us at [phone] for Medicare purposes. For Medicare only, by signing this I certify the plan of care. Please let me know if there are questions or concerns regarding this plan of care. Physician Signature: Date:
--- NOTE | 2023-06-03 11:49 | HP.PTDCSUM ---
Discharge Summary D/C summary: It has been my pleasure to treat ДМИТРИЙ CAMPO referred by Dr. Rhina Kulkarni MD, with the diagnosis of CONCUSSION, HEAD INJURY AND NECK PAIN for a total of 12 visit(s). Discharge Date: 06/03/23 Please see the following information for a summary of their discharge status. Subjective Subjective: So much better due to the exercises. Doing exercises without issues. Walked two miles without an issue. Only problem left is tightness in neck after exercises or carrying heavy trays at work. Some pain for a few seconds with lifting. Sleeping is good. No CLEMENTS. No dizzyness in a long time. No f/u with doctor. Activities: Life is normal Wants to get back to gym and feels like she could. Pain CLEMENTS: Pain Intensity (Out of 10): 0 neck and UT: Pain Intensity (Out of 10): 6 Overall Improvement % Improvement: 98 Objective Objective/Function: Full aROM cerevical spine with just some stiffness end range of extension. UE AROM WFL and strength at 4/5 without myotomal problems. No CLEMENTS or dizzy symptoms lately. Posture is still forward head but correctable with VC Goals Goal 1:: DECREASE C/O HEAD AND NECK SYMPTOMS BY AT LEAST 75% TO EASE ADL'S. Goal Progress: Goal Met Goal 2:: RESTORE FULL CERVICAL ROM ALL PLANES TO ASSIST IN RETURN TO PLOF Goal Progress: Goal Met Goal 3:: PATIENT WILL HAVE FULL JOSE D UE ROM ALL PLANES TO EASE ADL'S Goal Progress: Goal Met Goal 4:: RESTORE FULL STRENGTH JOSE D UE'S TO ASSIST WITH RETURN TO PLOF Goal Progress: Goal Met Goal 5:: PATIENT WILL SCORE AT LEAST 8 POINTS BETTER ON NECK OSWESTRY TO SHOW IMPROVED FUNCTION Goal Progress: Goal Met Goal 6:: PATIENT WILL BE INDEP WITH A HEP FOR CONTINUED IMPROVEMENT ONCE FORMAL PHYSICAL THERAPY CONCLUDES. Goal Progress: Goal Met Plan Plan: d/c to HEP./gym D/C Information d/c sentence: If there are questions or concerns regarding this patient's physical therapy, please feel free to call me at [phone]. Thank you for the referral of this patient. Sincerely, Sriram Esqueda, DPT, OCS, CSCS Balance/Gait/Functional tests Balance/Special Test Scores Functional Gait Assessment Score: 29 % Disability: 3.3400 Oswestry Neck Score: 2 Improvement % Improvement: 98
== END 2023-06-02 19:00 | disposition home or self-care (01) ==
LOC: PT 12:30
PROVIDERS: PCP Internal Medicine; Referring Provider Internal Medicine; Visit Provider Internal Medicine
DX: S06.0XAD Concussion with loss of consciousness status unknown, subsequent encounter (principal); S09.90XD Unspecified injury of head, subsequent encounter
CPT/HCPCS: 97110; 97140; 97162; 97530

== ENCOUNTER → 2023-08-04 | Outpatient (CLI) | payer OTHER, MEDICAID, SELFPAY ==
[2023-08-04 16:47] LABS: Absolute Neutrophil Count 3.6 X10^3/uL (2.0-7.7); Basophil# 0.04 X10^3/uL; Basophil% 0.6 % (0-1); Eosinophil# 0.28 X10^3/uL; Eosinophils% 4.1 % (0-5); Hematocrit 29.6 % (37-47); Hemoglobin 8.6 g/dL (12.0-15.0); Lymphocyte % 33.4 % (19-41); Mean Corp Hgb Conc 29.1 g/dL (32-36); Mean Corpuscular Hgb 20.1 pg (27.0-32.0); Mean Corpuscular Volume 69.2 fL (81-99); Mean Platelet Vol. 10.6 fl (6.2-12.0); Monocyte# 0.63 X10^3/uL; Monocyte% 9.2 % (0-10); NRBC Flagged by Analyzer 0 % (0-5); Neutrophil # 3.61 X10^3/uL (2.7-7.7); Neutrophil % 52.4 % (47-70); Platelet Count 291 K/mm3 (150-450); RBC Distribution Width SD 47.1 fl (35.1-43.9); Red Blood Count 4.28 M/mm3 (4.2-5.4); White Blood Count 6.9 K/mm3 (4.4-11.0)
[2023-08-04 17:01] LABS: ALB/GLOB Ratio 0.8 RATIO (0.9-2.4); AST(SGOT) 16 U/L (15-37); Alanine Aminotransfer ALT/SGPT 24 U/L (13-56); Albumin, Serum 3.3 g/dL (3.2-5.0); Alkaline Phosphatase 77 U/L (45-117); Anion Gap 6 (5-15); BUN 14 mg/dL (7-18); BUN/Creat Ratio 17.3 RATIO (10-20); Chloride 104 mmol/L (98-107); Creatinine, Serum 0.81 mg/dL (0.55-1.02); EST Glomerular Filtration Rate 89 mL/min (>60); Est Glom Filt Rate - Afr Amer 108 mL/min (>60); Ferritin 3 ng/mL (8-252); Globulin 3.9 g/dL (2.2-4.2); Glucose 71 mg/dL (74-106); Iron 18 ug/dL (50-170); Iron Binding Capacity,Total 434 ug/dL (250-450); PERCENT IRON SATURATION 4.1 % (15.0-55.0); Potassium 4.1 mmol/L (3.5-5.1); Protein, Total 7.2 g/dL (6.4-8.2); Sodium Level 138 mmol/L (136-145)
== END | disposition home or self-care (01) ==
LOC: BIMLAB 14:41
PROVIDERS: PCP Internal Medicine; Visit Provider Internal Medicine
DX: F41.9 Anxiety disorder, unspecified (principal); J45.20 Mild intermittent asthma, uncomplicated; R29.6 Repeated falls; D50.9 Iron deficiency anemia, unspecified
CPT/HCPCS: 36415; 80053; 82728; 83540; 83550; 85025

== ENCOUNTER → 2023-08-10 | Outpatient (CLI) | payer OTHER, MEDICAID, SELFPAY ==
--- NOTE | 2023-08-10 07:37 | MRI_ITS ---
HISTORY: recurrent falls/head injuries. TECHNIQUE: Multiplanar and multisequence MR images of the brain were obtained before and after the intravenous administration of 20 mL Clariscan. 328 images. COMPARISON: CT 04/16/2023, 05/28/2021. FINDINGS: BRAIN PARENCHYMA: No significant signal abnormality or enhancing lesion in the brain parenchyma. No abnormal focus of restricted diffusion. No acute intracranial hemorrhage identified. CSF SPACES: Cerebral ventricles, cortical sulci, and other extra-axial CSF spaces within normal limits in size for age. No significant midline shift or other mass effect.No extra-axial fluid collection. VASCULAR SYSTEM: Major intracranial flow voids are maintained. PARANASAL SINUSES AND MASTOID AIR CELLS: No significant air fluid levels. Left nasal mucosal thickening. ORBITS: Symmetric contents. OTHER: Adenoidal hypertrophy again seen with prominent cervical lymph nodes. MRI/Brain W/WO Contrast IMPRESSION: Unremarkable MRI brain without evidence for significant signal abnormality in the brain or enhancing intracranial mass. Chronic adenoidal hypertrophy. Electronically Signed: Eliza Mckeon MD at 10:49 EDT ,
[2023-08-10 09:52] LABS: T4 Free Direct 0.94 ng/dL (0.76-1.46); Thyroid Stim Hormone (TSH) 2.93 uIU/mL (0.358-3.74)
[2023-08-17 18:08] LABS: HPV Reflexed? NOT INDICATED
== END | disposition home or self-care (01) ==
PROVIDERS: Nurse Practitioner Women's Health; PCP Internal Medicine; Referring Provider Internal Medicine; Visit Provider Internal Medicine
DX: Z12.4 Encounter for screening for malignant neoplasm of cervix (principal); N92.0 Excessive and frequent menstruation with regular cycle; R63.5 Abnormal weight gain; R29.6 Repeated falls
CPT/HCPCS: 36415; 70553; 84439; 84443; 86376; 88175; A9575; G0145

== ENCOUNTER 2023-08-21 13:41 | Outpatient (CLI) | payer OTHER, MEDICAID, SELFPAY ==
[2023-08-21 14:10] VITALS: BP 126/67; PULSE 91; RESP 16; TEMP 36.3; O2SAT 99; BMI 41.1
[2023-08-21] MEDS: Sodium Ferric Gluconat/Sucrose 125 MG in 0.9% Normal Saline (100mL Bag) 100 ML 110 MG IV (14:14)
[2023-08-21] MEDS: 0.9% NaCl IVPB Med Flush (250 mL) 15 ML IV (14:14)
[2023-08-21] MEDS: 0.9% NaCl Peripheral Flush Adult/Peds IV (14:14)
[2023-08-21 15:30] VITALS: BP 116/70; PULSE 105; RESP 16; TEMP 36.4; O2SAT 99
== END 2023-08-21 23:59 | disposition home or self-care (01) ==
LOC: MEDOUTP 13:41
PROVIDERS: PCP Internal Medicine; Referring Provider Internal Medicine; Visit Provider Internal Medicine
DX: D50.9 Iron deficiency anemia, unspecified (principal)
CPT/HCPCS: 96365; J7050; A4216; J2916

== ENCOUNTER → 2023-08-21 | Outpatient (CLI) | payer OTHER, MEDICAID, SELFPAY ==
--- NOTE | 2023-08-21 15:34 | US_ITS ---
INDICATION: bleeding EXAMINATION: Ultrasound US Pelvis Non OB Complete With Transvaginal Imaging TECHNIQUE: Transabdominal and transvaginal pelvic ultrasound was performed. Grayscale and color flow Doppler evaluation of the adnexa. COMPARISON: None. FINDINGS: UTERUS: Anteverted. The uterus measures 12.5 x 3.9 x 7.5 cm . Normal myometrial appearance. The endometrial stripe measures 0.7 cm in AP diameter which is within normal limits. Small anechoic nabothian cysts. RIGHT OVARY: 3.8 x 2.4 x 2.6 cm (12.3 ml) with multiple small follicles and demonstrated internal color vascular flow. LEFT OVARY: Obscured by overlying bowel on transabdominal and endovaginal exam. FREE FLUID: Trace cul-de-sac free fluid is likely physiologic.. US/Pelvic w/ Transvaginal IMPRESSION: Normal uterine appearance for age with small nabothian cysts Trace likely physiologic anechoic free fluid in the cul-de-sac. Right ovary is prominent in size with multiple normal small follicles. Number of follicles is borderline for criteria for polycystic ovarian syndrome. Correlate with clinical exam. Left ovary is obscured by bowel gas limiting exam Electronically Signed: Nicholas Patterson MD at 17:59 EDT ,
== END | disposition home or self-care (01) ==
PROVIDERS: PCP Internal Medicine; Referring Provider Nurse Practitioner Women's Health; Visit Provider Nurse Practitioner Women's Health
DX: N92.0 Excessive and frequent menstruation with regular cycle (principal)
CPT/HCPCS: 76830; 76856

== ENCOUNTER → 2023-09-16 | Outpatient (CLI) | payer OTHER, MEDICAID, SELFPAY ==
[2023-09-16 15:16] LABS: Absolute Lymphocyte Count 2.07 X10^3/uL (0.83-4.51); Absolute Neutrophil Count 2.8 X10^3/uL (2.0-7.7); Basophil# 0.03 X10^3/uL; Basophil% 0.5 % (0-1); Eosinophil# 0.13 X10^3/uL; Eosinophils% 2.3 % (0-5); Hematocrit 33.8 % (37-47); Hemoglobin 9.9 g/dL (12.0-15.0); Lymphocyte # 2.07 X10^3/ul (0.83-4.51); Lymphocyte % 36.9 % (19-41); Mean Corp Hgb Conc 29.3 g/dL (32-36); Mean Corpuscular Volume 68.4 fL (81-99); Mean Platelet Vol. 10.4 fl (6.2-12.0); Monocyte# 0.62 X10^3/uL; Monocyte% 11.1 % (0-10); NRBC Flagged by Analyzer 0 % (0-5); Neutrophil # 2.75 X10^3/uL (2.7-7.7); POSITIVE MORPHOLOGY YES; Platelet Count 250 K/mm3 (150-450); RBC Distribution Width CV 20.2 % (11.6-14.6); RBC Distribution Width SD 48.3 fl (35.1-43.9); Red Blood Count 4.94 M/mm3 (4.2-5.4); White Blood Count 5.6 K/mm3 (4.4-11.0)
[2023-09-16 15:35] LABS: Ferritin 6 ng/mL (8-252); Iron 24 ug/dL (50-170); Iron Binding Capacity,Total 415 ug/dL (250-450); PERCENT IRON SATURATION 5.8 % (15.0-55.0)
[2023-09-16 15:42] LABS: Differential Indicated SCAN CRITERIA MET
[2023-09-16 15:51] LABS: Anisocytosis 1+; Differential Comment SCANNED
== END | disposition home or self-care (01) ==
LOC: BIMLAB 13:31
PROVIDERS: PCP Internal Medicine; Referring Provider Internal Medicine; Visit Provider Internal Medicine
DX: D50.9 Iron deficiency anemia, unspecified (principal)
CPT/HCPCS: 36415; 82728; 83540; 83550; 85025

== ENCOUNTER → 2023-09-28 | Outpatient (CLI) | payer OTHER, MEDICAID, SELFPAY ==
[2023-09-28 16:04] LABS: Absolute Lymphocyte Count 2.86 X10^3/uL (0.83-4.51); Absolute Neutrophil Count 2.6 X10^3/uL (2.0-7.7); Basophil# 0.03 X10^3/uL; Basophil% 0.5 % (0-1); Eosinophil# 0.16 X10^3/uL; Eosinophils% 2.5 % (0-5); Hematocrit 31.8 % (37-47); Hemoglobin 9.4 g/dL (12.0-15.0); Lymphocyte # 2.86 X10^3/ul (0.83-4.51); Lymphocyte % 45.1 % (19-41); Mean Corp Hgb Conc 29.6 g/dL (32-36); Mean Corpuscular Hgb 20.6 pg (27.0-32.0); Mean Corpuscular Volume 69.6 fL (81-99); Mean Platelet Vol. 9.9 fl (6.2-12.0); Monocyte# 0.65 X10^3/uL; Monocyte% 10.3 % (0-10); NRBC Flagged by Analyzer 0 % (0-5); Neutrophil # 2.63 X10^3/uL (2.7-7.7); Neutrophil % 41.4 % (47-70); Platelet Count 241 K/mm3 (150-450); RBC Distribution Width CV 19.6 % (11.6-14.6); RBC Distribution Width SD 48.8 fl (35.1-43.9); Red Blood Count 4.57 M/mm3 (4.2-5.4); White Blood Count 6.3 K/mm3 (4.4-11.0)
== END | disposition home or self-care (01) ==
PROVIDERS: PCP Internal Medicine; Referring Provider Nurse Practitioner Women's Health; Visit Provider Nurse Practitioner Women's Health
DX: N92.0 Excessive and frequent menstruation with regular cycle (principal)
CPT/HCPCS: 36415; 85025

== ENCOUNTER 2023-10-01 12:47 | Outpatient (CLI) | payer OTHER, MEDICAID, SELFPAY ==
[2023-10-01 12:53] VITALS: BP 138/84; PULSE 89; RESP 16; TEMP 36
[2023-10-01] MEDS: 0.9% NaCl Peripheral Flush Adult/Peds IV ×3 (12:57→14:58)
[2023-10-01] MEDS: Sodium Ferric Gluconat/Sucrose 125 MG in 0.9% Normal Saline (100mL Bag) 100 ML 110 MG IV (13:30)
[2023-10-01] MEDS: 0.9% Normal Saline (100mL Bag) 100 ML 15 ML IV (13:30)
[2023-10-01 15:00] VITALS: BP 117/76; PULSE 82; RESP 16; TEMP 36.5; O2SAT 100
== END 2023-10-01 23:59 | disposition home or self-care (01) ==
LOC: MEDOUTP 12:47
PROVIDERS: PCP Internal Medicine; Referring Provider Nurse Practitioner; Visit Provider Nurse Practitioner
DX: D50.9 Iron deficiency anemia, unspecified (principal)
CPT/HCPCS: 96365; A4216; J2916

== ENCOUNTER 2023-10-02 12:58 | Outpatient (CLI) | payer OTHER, MEDICAID, SELFPAY ==
[2023-10-02] MEDS: 0.9% Normal Saline (100mL Bag) 100 ML 15 ML IV (13:12)
[2023-10-02] MEDS: 0.9% NaCl Peripheral Flush Adult/Peds IV ×2 (13:12→13:53)
[2023-10-02 13:16] VITALS: BP 125/77; PULSE 83; RESP 16; TEMP 36.8
[2023-10-02] MEDS: Sodium Ferric Gluconat/Sucrose 125 MG in 0.9% Normal Saline (100mL Bag) 100 ML 110 MG IV (13:16)
[2023-10-02 14:52] VITALS: BP 131/86; PULSE 85; RESP 16; TEMP 36.8; O2SAT 100
== END 2023-10-02 23:59 | disposition home or self-care (01) ==
LOC: MEDOUTP 12:58
PROVIDERS: PCP Internal Medicine; Referring Provider Nurse Practitioner; Visit Provider Nurse Practitioner
DX: D50.9 Iron deficiency anemia, unspecified (principal)
CPT/HCPCS: 96365; A4216; J2916

== ENCOUNTER 2023-10-03 21:52 | Emergency (ER) | payer OTHER, MEDICAID, SELFPAY ==
[2023-10-03 21:53] VITALS: BP 131/87; PULSE 97; RESP 15; TEMP 36.6; O2SAT 99; BMI 46.0
[2023-10-03] MEDS: Ketorolac 30 MG/ML Syringe IV (22:21)
[2023-10-03] MEDS: DiphenhydrAMINE 50 MG/ML Syringe IV (22:22)
[2023-10-03] MEDS: Metoclopramide 10 MG/2 ML Vial IV (22:22)
[2023-10-03] MEDS: 0.9% Normal Saline (1000mL) 1,000 ML 999 ML IV (22:22)
[2023-10-03] MEDS: Orphenadrine 60 MG/2 ML Ampul IV (22:22)
--- NOTE | 2023-10-03 22:26 | EX.ED.DYSGE1 ---
HPI History of Present Illness Chief Complaint: Headache Informant: patient Narrative Narrative: Patient is a 28-year-old female with past medical history of depression and migraine as well as iron deficiency anemia. She is currently receiving iron transfusions. She states that she did receive an iron transfusion 2 days in a row which is new for her. She states that today she was feeling better and did a lot. She states she is unsure if she does overdid it or is having a adverse effect to the 2 days of iron infusions in a row. She denies any recent trauma or sick symptoms such as fevers or chills congestion drainage or cough. She states that this evening she developed a headache and began along the back of her head and now has wrapped up and around the head to the forehead. She states she tried her home medications without symptom improvement and therefore comes in for evaluation [facility] Medical History Irritable bowel syndrome with diarrhea Low iron Gastric reflux Hypertension GI bleeding Infection of obstetric surgical wound, superficial incisional site delivery delivered heart deceleration Non-smoker Oral herpes Asthma Depression Anemia Home Medications ?Medication ?Instructions ?Recorded ?Last Taken ?Type cetirizine 10 mg capsule (Zyrtec) 10 mg PO DAILY PRN allergy symptoms 06/16/22 Unknown History albuterol sulfate 90 mcg/actuation 1 - 2 puff inhalation Q6H PRN 01/13/23 Unknown Rx aerosol inhaler (ProAir HFA) shortness of breath or wheezing #8.5 grams budesonide-formoterol HFA 160 2 puff inhalation BID #10.2 grams 01/13/23 Unknown Rx mcg-4.5 mcg/actuation aerosol inhaler (Symbicort) sumatriptan succinate 25 mg tablet See Rx Instructions PO .COMPLEX 04/20/23 Unknown Rx (Imitrex) #10 tabs azelastine 0.05 % eye drops 1 drp ophthalmic (eye) BID #6 mL 08/04/23 Unknown Rx Allergy/AdvReac Type Severity Reaction Status Date / Time No Known Allergies Allergy Verified 10/03/23 21:55 Family History Father Epilepsy Migraines Mother Arthritis Anxiety Sister Anxiety Surgical History Encounter for removal of skin lesion History of placement of ear tubes H/O myringotomy History of tonsillectomy History of esophagogastroduodenoscopy (EGD) H/O colonoscopy H/O toe surgery History of cholecystectomy delivery delivered Social History household members: family housing: house number of children: 1 current occupational status: unemployed Smoking Status: Never smoker Electronic Cigarette Use: not used second hand exposure: No alcohol intake: never substance use type: does not use caffeine: Yes what type of physical activity do you participate in: walking seatbelt use: always do you feel safe at home: Yes additional social history: - [employer] ROS ROS ED Constitutional Constitutional ED: Denies chills or fever(s) Eyes Eyes: Reports other Details: Positive photophobia ; Denies change in vision ENT ENT ED: Denies sore throat Cardiovascular Cardiovascular: Denies chest pain Respiratory/Chest Respiratory/Chest: Denies cough or dyspnea Gastrointestinal Gastrointestinal: Reports nausea and vomiting; Denies abdominal pain or diarrhea Genitourinary Genitourinary ED: Denies dysuria Musculoskeletal Musculoskeletal: Denies neck pain Integumentary Denies rash Neurologic Neurologic: Reports headache(s); Denies paresthesias or weakness Hematologic/Lymphatic Hematologic/Lymphatic: Denies easy bleeding or easy bruising EXAM Physical Exam Const Vital Signs: 10/03/23 21:53 Temperature 97.8 F Temperature Source Oral Pulse Rate 97 Respiratory Rate 15 Blood Pressure 131/87 H Blood Pressure Mean 101 Pulse Ox 99 Oxygen Delivery Method Room Air Positive well nourished, well developed and obese General Appearance ED: well developed; Negative for pallor Nutritional Appearance: obese HEENT HEENT Narrative: Normocephalic atraumatic Eyes PERRL and EOMs intact bilaterally General Eye ED: Negative for scleral icterus Neck supple Neck Narrative: No nuchal rigidity or meningeal signs Resp normal respiratory effort and clear to auscultation bilaterally Cardio regular rate and regular rhythm Rate: other Other Details: Heart is regular rate and rhythm without murmurs rubs or gallops Radial and carotid pulses equal and symmetric Extremity normal to inspection Neuro oriented x3, CN's II-XII intact bilaterally and no sensory deficits noted Neuro Narrative: Cranial nerves II through XII are grossly intact there are no focal neurologic deficits GCS of 15 No pronator drift no dysmetria no truncal ataxia NIH stroke scale score of 0 Sensorium / Orientation: alert Motor Exam: strength 5/5 throughout Psych mental status grossly normal Skin no rashes or lesions noted and no wounds General Skin Exam: Negative for jaundice or pallor MDM MDM MDM Narrative Medical decision making narrative: Patient arrived to the ER with stable vitals and normal neurologic exam. Moreover she reports a history of headache and states this is similar nature to her previous. There is no report or signs of trauma and she had no report of sick symptoms. Therefore my concern for an infectious process such as meningitis or a spontaneous subarachnoid or subdural hemorrhage is low and I do not feel the need for blood work or CT scan. Patient was given IV fluids as well as Toradol Benadryl and Reglan and Norflex was added as there did seem to be a musculoskeletal component. On reevaluation patient reports resolution of her headache her vitals remained stable and her neurologic exam normal. Therefore at this time with resolution of symptoms stable neurologic exam and low concern for infectious process or traumatic event I do not feel the need for further workup and she is otherwise safe for discharge. History & Record Review Discussion w/independent historian: Patient Discharge Plan Triage Chief Complaint: Headache ED Provider: Mariusz Mueller Dx/Rx/DC Orders Clinical Impression: Cephalgia, Iron deficiency anemia, Depression Instructions: ED Headache Unspecified Prescriptions: No Action Zyrtec 10 mg capsule 10 mg PO DAILY PRN (Reason: allergy symptoms) albuterol sulfate [ProAir HFA] 90 mcg/actuation HFA aerosol inhaler 1 - 2 puff inhalation Q6H PRN (Reason: shortness of breath or wheezing) Qty: 8.5 1RF budesonide-formoterol [Symbicort] 160-4.5 mcg/actuation HFA aerosol inhaler 2 puff inhalation BID Qty: 10.2 2RF azelastine 0.05 % drops 1 drp ophthalmic (eye) BID Qty: 6 0RF sumatriptan succinate [Imitrex] 25 mg tablet See Rx Instructions PO .COMPLEX Qty: 10 0RF Rx Instructions: take 1 tab at onset of headache; if no relief may repeat 1 tab after at least 2 hrs; max = 4 tabs/24 hr PO Primary Care Provider: Rhina Kulkarni Referrals: Rhina Kulkarni MD [Primary Care Provider] - Print Language: [place] Disposition Disposition: Home, Self Care
[2023-10-03 23:23] VITALS: BP 114/79; PULSE 86; RESP 16; TEMP 36.6; O2SAT 98
== END 2023-10-03 23:41 | disposition home or self-care (01) ==
PROVIDERS: Emergency Provider Emergency Medicine; PCP Internal Medicine; Visit Provider Emergency Medicine
DX: R51.9 Headache, unspecified (principal); D50.9 Iron deficiency anemia, unspecified; I10 Essential (primary) hypertension; J45.909 Unspecified asthma, uncomplicated; F32.A Depression, unspecified; Z79.51 Long term (current) use of inhaled steroids; Z79.899 Other long term (current) drug therapy; R11.2 Nausea with vomiting, unspecified
CPT/HCPCS: 96374; 96375; 99284; J7030; A4216

== ENCOUNTER 2023-10-05 11:35 | Outpatient (CLI) | payer OTHER, MEDICAID, SELFPAY ==
[2023-10-05 12:14] VITALS: BP 142/87; PULSE 83; RESP 16; TEMP 36.1; O2SAT 100; BMI 44.9
[2023-10-05] MEDS: 0.9% NaCl Peripheral Flush Adult/Peds IV (12:26)
[2023-10-05] MEDS: Sodium Ferric Gluconat/Sucrose 125 MG in 0.9% Normal Saline (100mL Bag) 100 ML 110 MG IV (12:26)
[2023-10-05] MEDS: 0.9% Normal Saline (100mL Bag) 100 ML 15 ML IV (12:26)
[2023-10-05 13:35] VITALS: BP 129/74; PULSE 85; RESP 16; TEMP 35.9; O2SAT 100
== END 2023-10-05 23:59 | disposition home or self-care (01) ==
LOC: MEDOUTP 11:36
PROVIDERS: PCP Internal Medicine; Referring Provider Nurse Practitioner; Visit Provider Nurse Practitioner
DX: D50.9 Iron deficiency anemia, unspecified (principal)
CPT/HCPCS: 96365; A4216; J2916

== ENCOUNTER 2023-10-06 13:19 | Outpatient (CLI) | payer OTHER, MEDICAID, SELFPAY ==
[2023-10-06 13:33] VITALS: BP 118/83; PULSE 85; RESP 16; TEMP 36.8; O2SAT 100
[2023-10-06] MEDS: 0.9% NaCl IVPB Med Flush (250 mL) 15 ML IV (13:40)
[2023-10-06] MEDS: Sodium Ferric Gluconat/Sucrose 125 MG in 0.9% Normal Saline (100mL Bag) 100 ML 110 MG IV (13:40)
[2023-10-06] MEDS: 0.9% NaCl Peripheral Flush Adult/Peds IV (13:40)
[2023-10-06 14:55] VITALS: BP 122/76; PULSE 94
== END 2023-10-06 23:59 | disposition home or self-care (01) ==
LOC: MEDOUTP 13:19
PROVIDERS: PCP Internal Medicine; Referring Provider Nurse Practitioner; Visit Provider Nurse Practitioner
DX: D50.9 Iron deficiency anemia, unspecified (principal)
CPT/HCPCS: 96365; J7050; A4216; J2916

== ENCOUNTER 2023-10-07 13:03 | Outpatient (CLI) | payer OTHER, MEDICAID, SELFPAY ==
[2023-10-07 13:08] VITALS: BP 128/75; PULSE 90; RESP 16; TEMP 36; O2SAT 98
[2023-10-07] MEDS: 0.9% Normal Saline (100mL Bag) 100 ML 15 ML IV (13:10)
[2023-10-07] MEDS: 0.9% NaCl Peripheral Flush Adult/Peds IV (13:12)
[2023-10-07] MEDS: Sodium Ferric Gluconat/Sucrose 125 MG in 0.9% Normal Saline (100mL Bag) 100 ML 110 MG IV (13:25)
[2023-10-07 15:05] VITALS: BP 124/69; PULSE 94
== END 2023-10-07 23:59 | disposition home or self-care (01) ==
LOC: MEDOUTP 13:03
PROVIDERS: PCP Internal Medicine; Referring Provider Nurse Practitioner; Visit Provider Nurse Practitioner
DX: D50.9 Iron deficiency anemia, unspecified (principal)
CPT/HCPCS: 96365; A4216; J2916

== ENCOUNTER 2023-10-08 14:05 | Outpatient (CLI) | payer OTHER, MEDICAID, SELFPAY ==
[2023-10-08 14:34] VITALS: BP 131/83; PULSE 93; RESP 16; TEMP 36.4; O2SAT 99; BMI 44.9
[2023-10-08] MEDS: 0.9% NaCl Peripheral Flush Adult/Peds IV (14:37)
[2023-10-08] MEDS: 0.9% Normal Saline (100mL Bag) 100 ML 15 ML IV (14:38)
[2023-10-08] MEDS: Sodium Ferric Gluconat/Sucrose 125 MG in 0.9% Normal Saline (100mL Bag) 100 ML 110 MG IV (14:38)
[2023-10-08 16:04] VITALS: BP 135/75; PULSE 90; RESP 16; TEMP 36.5; O2SAT 100
== END 2023-10-08 23:59 | disposition home or self-care (01) ==
LOC: MEDOUTP 14:05
PROVIDERS: PCP Internal Medicine; Referring Provider Nurse Practitioner; Visit Provider Nurse Practitioner
DX: D50.9 Iron deficiency anemia, unspecified (principal)
CPT/HCPCS: 96365; A4216; J2916

== ENCOUNTER 2023-10-09 13:19 | Outpatient (CLI) | payer OTHER, MEDICAID, SELFPAY ==
[2023-10-09 13:25] VITALS: BP 132/80; PULSE 89; RESP 16; TEMP 36.2; O2SAT 99
[2023-10-09] MEDS: 0.9% NaCl Peripheral Flush Adult/Peds IV (13:27)
[2023-10-09] MEDS: Sodium Ferric Gluconat/Sucrose 125 MG in 0.9% Normal Saline (100mL Bag) 100 ML 110 MG IV (13:39)
== END 2023-10-09 23:59 | disposition home or self-care (01) ==
LOC: MEDOUTP 13:20
PROVIDERS: PCP Internal Medicine; Referring Provider Nurse Practitioner; Visit Provider Nurse Practitioner
DX: D50.9 Iron deficiency anemia, unspecified (principal)
CPT/HCPCS: 96365; J7050; A4216; J2916

== ENCOUNTER 2023-10-12 13:22 | Outpatient (CLI) | payer OTHER, MEDICAID, SELFPAY ==
[2023-10-12 13:39] VITALS: BP 132/90; PULSE 85; RESP 16; TEMP 35.9
[2023-10-12] MEDS: 0.9% NaCl Peripheral Flush Adult/Peds IV (13:43)
[2023-10-12] MEDS: 0.9% Normal Saline (100mL Bag) 100 ML 15 ML IV (13:43)
[2023-10-12] MEDS: Sodium Ferric Gluconat/Sucrose 125 MG in 0.9% Normal Saline (100mL Bag) 100 ML 110 MG IV (13:55)
[2023-10-12 15:27] VITALS: BP 121/80; PULSE 95; RESP 16; TEMP 36.5; O2SAT 99
== END 2023-10-12 23:59 | disposition home or self-care (01) ==
LOC: MEDOUTP 13:22
PROVIDERS: PCP Internal Medicine; Referring Provider Nurse Practitioner; Visit Provider Nurse Practitioner
DX: D50.9 Iron deficiency anemia, unspecified (principal)
CPT/HCPCS: 96365; A4216; J2916

== ENCOUNTER 2023-12-29 11:46 | Emergency (ER) | payer OTHER, MEDICAID, SELFPAY ==
[2023-12-29 11:46] VITALS: BP 144/99; PULSE 92; RESP 14; TEMP 36.2; O2SAT 100
--- NOTE | 2023-12-29 12:37 | EDS_ITS ---
HPI History of Present Illness Chief Complaint: Headache Informant: patient Onset/Context/Timing Onset: Today Context: Sudden Timing: Continuous Quality -Headache: Positive for Similar Prior Headaches and Sharp Location: Diffuse Worsened by: Nothing Relieved by: Nothing Associated Symptoms/Injury Associated Symptoms: Positive for Nausea, Vomiting, Sinus Pressure, Visual Changes, Blurred Vision and Photophobia; Negative for Fever, Sore Throat, Numbness, Tingling, Preceding Aura or Visual Loss Injury - CLEMENTS: Negative for Direct Trauma Narrative Narrative: Patient presents with a headache that began today. Patient states she woke up with her headache. Patient states it has been constant throughout the day. Patient states it is similar to previous headaches. Patient describes it as sharp. Patient states it is diffuse across her entire head. Patient states nothing makes it better nothing makes it worse. The patient does admit to some photophobia and blurry vision. Patient also admits to some nausea and vomiting. Patient also admits to some sinus pressure. Patient denies any paresthesias or weakness. Patient denies any trauma or injury. [facility] Medical History Irritable bowel syndrome with diarrhea Low iron Gastric reflux Hypertension GI bleeding Infection of obstetric surgical wound, superficial incisional site delivery delivered heart deceleration Non-smoker Oral herpes Asthma Depression Anemia Home Medications ?Medication ?Instructions ?Recorded ?Last Taken ?Type cetirizine 10 mg capsule (Zyrtec) 10 mg PO DAILY PRN allergy symptoms 06/16/22 Unknown History albuterol sulfate 90 mcg/actuation 1 - 2 puff inhalation Q6H PRN 01/13/23 Unknown Rx aerosol inhaler (ProAir HFA) shortness of breath or wheezing #8.5 grams budesonide-formoterol HFA 160 2 puff inhalation BID #10.2 grams 01/13/23 Unknown Rx mcg-4.5 mcg/actuation aerosol inhaler (Symbicort) sumatriptan succinate 25 mg tablet See Rx Instructions PO .COMPLEX 04/20/23 Unknown Rx (Imitrex) #10 tabs azelastine 0.05 % eye drops 1 drp ophthalmic (eye) BID #6 mL 08/04/23 Unknown Rx tranexamic acid 650 mg tablet 1,300 mg (2 x 650 mg) PO TID #60 10/21/23 Unknown Rx tabs Allergy/AdvReac Type Severity Reaction Status Date / Time No Known Allergies Allergy Verified 12/29/23 11:47 Family History Father Epilepsy Migraines Mother Arthritis Anxiety Sister Anxiety Surgical History Encounter for removal of skin lesion History of placement of ear tubes H/O myringotomy History of tonsillectomy History of esophagogastroduodenoscopy (EGD) H/O colonoscopy H/O toe surgery History of cholecystectomy delivery delivered Social History household members: family housing: house number of children: 1 current occupational status: unemployed Smoking Status: Never smoker Electronic Cigarette Use: not used second hand exposure: No alcohol intake: never substance use type: does not use caffeine: Yes what type of physical activity do you participate in: walking seatbelt use: always do you feel safe at home: Yes additional social history: - [employer] ROS ROS ED Constitutional Constitutional ED: Denies chills or fever(s) Eyes Eyes: Reports blurry vision; Denies diplopia ENT ENT ED: Denies rhinorrhea or sore throat Cardiovascular Cardiovascular: Denies chest pain or palpitations Respiratory/Chest Respiratory/Chest: Denies cough or dyspnea Gastrointestinal Gastrointestinal: Reports nausea and vomiting Genitourinary Genitourinary ED: Denies dysuria or hematuria Musculoskeletal Musculoskeletal: Denies back pain or neck pain Integumentary Denies abscess or rash Neurologic Neurologic: Reports headache(s); Denies weakness Allergic/Immunologic Allergic/Immunologic ED: Denies mouth swelling or urticaria EXAM Physical Exam Const Vital Signs: 12/29/23 11:46 Temperature 97.2 F L Temperature Source Temporal Pulse Rate 92 Respiratory Rate 14 Blood Pressure 144/99 H Blood Pressure Mean 114 Pulse Ox 100 Oxygen Delivery Method Room Air Positive well nourished and well developed General Appearance ED: well developed and NAD HEENT Reports normocephalic and moist mucous membranes atraumatic Neck supple, no meningeal signs and no JVD Resp normal respiratory effort and clear to auscultation bilaterally Cardio regular rate and regular rhythm GI non-tender and non-distended Neuro oriented x3, CN's II-XII intact bilaterally and no sensory deficits noted [place] Coma Scale: document GCS findings Spontaneous Obeys Commands Oriented 15 Sensorium / Orientation: awake and alert Speech: speech normal Motor Exam: strength 5/5 throughout Psych mental status grossly normal MDM MDM MDM Narrative Medical decision making narrative: Patient states that she was seen here for similar headaches in the past and was given medications which helped. Patient was given IV fluids, Reglan, Benadryl, and Toradol. Patient is feeling better on reevaluation. Patient was instructed to rest in a dark quiet room. Patient was instructed to follow-up with her primary care physician in 5 to 7 days. Patient understood and was agreeable with the plan. All questions were answered. Discharge Plan Triage Chief Complaint: Headache ED Provider: Sriram Segal Dx/Rx/DC Orders Clinical Impression: Headache, migraine Instructions: ED, Migraine (Classical) Prescriptions: No Action Zyrtec 10 mg capsule 10 mg PO DAILY PRN (Reason: allergy symptoms) albuterol sulfate [ProAir HFA] 90 mcg/actuation HFA aerosol inhaler 1 - 2 puff inhalation Q6H PRN (Reason: shortness of breath or wheezing) Qty: 8.5 1RF budesonide-formoterol [Symbicort] 160-4.5 mcg/actuation HFA aerosol inhaler 2 puff inhalation BID Qty: 10.2 2RF azelastine 0.05 % drops 1 drp ophthalmic (eye) BID Qty: 6 0RF tranexamic acid 650 mg tablet 1,300 mg PO TID Qty: 60 2RF sumatriptan succinate [Imitrex] 25 mg tablet See Rx Instructions PO .COMPLEX Qty: 10 0RF Rx Instructions: take 1 tab at onset of headache; if no relief may repeat 1 tab after at least 2 hrs; max = 4 tabs/24 hr PO Primary Care Provider: Rhina Kulkarni Referrals: Rhina Kulkarni MD [Primary Care Provider] - 5-7 Days Print Language: Samoan Disposition Disposition: Home, Self Care
[2023-12-29 13:16] VITALS: BMI 47.0
[2023-12-29 13:17] VITALS: BP 138/85; PULSE 99; RESP 14; O2SAT 99
[2023-12-29] MEDS: 0.9% Normal Saline (1000mL) 1,000 ML 999 ML IV (13:18)
[2023-12-29] MEDS: Ketorolac 30 MG/ML Syringe IV (13:19)
[2023-12-29] MEDS: Metoclopramide 10 MG/2 ML Vial IV (13:19)
[2023-12-29] MEDS: DiphenhydrAMINE 50 MG/ML Syringe 25 MG IV (13:19)
[2023-12-29 14:26] VITALS: BP 129/76; PULSE 81; RESP 14; TEMP 36.6; O2SAT 100
== END 2023-12-29 14:31 | disposition home or self-care (01) ==
PROVIDERS: Emergency Provider Emergency Medicine; PCP Internal Medicine; Visit Provider Emergency Medicine
DX: G43.909 Migraine, unspecified, not intractable, without status migrainosus (principal)
CPT/HCPCS: 96361; 96374; 96375; 99282; J7030; A4216

== ENCOUNTER → 2024-08-22 | Outpatient (CLI) | payer MEDICAID, SELFPAY ==
[2024-08-22 16:13] LABS: hCG Titer Quant., Serum < 1 mIU/mL (<9 non-preg)
[2024-08-22 16:55] LABS: Iron 17 ug/dL (50-170); Iron Binding Capacity,Total 374 ug/dL (250-450); Iron Binding Capacity,Unsat 357 ug/dL (228-428)
[2024-08-22 17:06] LABS: Ferritin 10 ng/mL (22-378)
== END | disposition home or self-care (01) ==
PROVIDERS: Obstetrics & Gynecology; PCP Internal Medicine; Visit Provider Obstetrics & Gynecology
DX: O20.9 Hemorrhage in early pregnancy, unspecified (principal); D50.9 Iron deficiency anemia, unspecified; O99.019 Anemia complicating pregnancy, unspecified trimester; Z3A.00 Weeks of gestation of pregnancy not specified
CPT/HCPCS: 36415; 82728; 83540; 83550; 84702

== ENCOUNTER → 2024-08-24 | Outpatient (CLI) | payer MEDICAID, SELFPAY ==
[2024-08-24 11:52] LABS: Absolute Lymphocyte Count 2.69 X10^3/uL (0.83-4.51); Absolute Neutrophil Count 3.6 X10^3/uL (2.0-7.7); Basophil# 0.02 X10^3/uL; Basophil% 0.3 % (0-1); Eosinophil# 0.17 X10^3/uL; Eosinophils% 2.4 % (0-5); Hemoglobin 10.8 g/dL (12.0-15.0); Lymphocyte # 2.69 X10^3/ul (0.83-4.51); Lymphocyte % 38.1 % (19-41); Mean Corp Hgb Conc 30.9 g/dL (32-36); Mean Corpuscular Hgb 22.8 pg (27.0-32.0); Mean Corpuscular Volume 73.8 fL (81-99); Mean Platelet Vol. 9.9 fl (6.2-12.0); Monocyte# 0.56 X10^3/uL; Monocyte% 7.9 % (0-10); NRBC Flagged by Analyzer 0 % (0-5); Platelet Count 274 K/mm3 (150-450); RBC Distribution Width CV 16.7 % (11.6-14.6); RBC Distribution Width SD 44.2 fl (35.1-43.9); Red Blood Count 4.74 M/mm3 (4.2-5.4); White Blood Count 7.1 K/mm3 (4.4-11.0)
[2024-08-26 04:07] LABS: Anti-Cardiolipin Ab, IgG, Qn < 9 GPL U/mL (0-14); Anti-Cardiolipin Ab, IgM, Qn < 9 MPL U/mL (0-12); Beta-2-Glycoprotein I IgA <9 (0-25); Beta-2-Glycoprotein I IgG <9 (0-20); Beta-2-Glycoprotein I IgM <9 (0-32); Dilute Prothrombin Time (dPT) 38.4 sec (0.0-47.6); Dilute Russell Viper Venom 46.9 sec (0.0-47.0); Interpretation Comment: (.); PTT-LA 29.7 sec (0.0-43.5); Thrombin Time 18.2 sec (0.0-23.0); dPT Confirm Ratio 1.09 Ratio (0.00-1.34)
== END | disposition home or self-care (01) ==
PROVIDERS: PCP Internal Medicine; Referring Provider Obstetrics & Gynecology; Visit Provider Obstetrics & Gynecology
DX: N93.9 Abnormal uterine and vaginal bleeding, unspecified (principal); N96 Recurrent pregnancy loss
CPT/HCPCS: 36415; 84443; 85025; 86146; 86147

== ENCOUNTER → 2024-08-30 | Outpatient (CLI) | payer MEDICAID, SELFPAY ==
--- NOTE | 2024-08-30 14:20 | US_ITS ---
PROCEDURE: PELVIC W/ TRANSVAGINAL 08/30/2024 REASON FOR EXAM: ABNORMAL UTERINE BLEEDING TECHNIQUE: PELVIC W/ TRANSVAGINAL with grayscale and color Doppler COMPARISON: Pelvic ultrasound on 08/21/2019 FINDINGS: Measurements: Uterus: 9.5 x 5.5 x 6.8 cm for volume of 187.1 mL Endometrial Thickness: 0.4 cm Right Ovary: 2.6 x 1.8 x 1.8 cm for volume of 4.6 mL Left Ovary: 2.4 x 1.2 x 1.6 cm for volume of 2.4 mL Uterus: Anteverted. Normal contour and myometrial echotexture. Nabothian cysts at the cervix. Endometrium: Normal echotexture. Right ovary: Normal size and echotexture. Left ovary: Normal size and echotexture. Other adnexal findings: None. Cul-de-sac: No free intraperitoneal fluid identified. Color Doppler: Normal color flow doppler signal at both ovaries. US/Pelvic w/ Transvaginal IMPRESSION: NORMAL TRANSABDOMINAL AND TRANSVAGINAL PELVIC ULTRASOUND WITH DOPPLER. Reading Location: [id number]
== END | disposition home or self-care (01) ==
LOC: US 14:18
PROVIDERS: PCP Internal Medicine; Referring Provider Obstetrics & Gynecology; Visit Provider Obstetrics & Gynecology
DX: N93.9 Abnormal uterine and vaginal bleeding, unspecified (principal)
CPT/HCPCS: 76830; 76856

== ENCOUNTER → 2024-10-31 | Outpatient (CLI) | payer MEDICAID, SELFPAY ==
[2024-10-31 13:17] LABS: hCG Titer Quant., Serum 33 mIU/mL (<9 non-preg)
== END | disposition home or self-care (01) ==
LOC: BWCLAB 10:46
PROVIDERS: Advanced Practice Midwife; PCP Internal Medicine; Referring Provider Obstetrics & Gynecology; Visit Provider Obstetrics & Gynecology
DX: N91.2 Amenorrhea, unspecified (principal)
CPT/HCPCS: 36415; 84702

== ENCOUNTER → 2024-11-02 | Outpatient (CLI) | payer MEDICAID, SELFPAY ==
[2024-11-02 13:36] LABS: hCG Titer Quant., Serum 75 mIU/mL (<9 non-preg)
== END | disposition home or self-care (01) ==
PROVIDERS: Advanced Practice Midwife; PCP Internal Medicine; Referring Provider Obstetrics & Gynecology; Visit Provider Obstetrics & Gynecology
DX: N91.2 Amenorrhea, unspecified (principal)
CPT/HCPCS: 36415; 84702

== ENCOUNTER → 2024-11-16 | Outpatient (CLI) | payer MEDICAID, SELFPAY ==
--- NOTE | 2024-11-16 11:56 | US_ITS ---
PROCEDURE: TRANSVAGINAL W/PREG US 11/16/2024 REASON FOR EXAM: DATING TECHNIQUE: Procedure Code: [id number] Modality: US Procedure: TRANSVAGINAL W/PREG US COMPARISON: Prior study dated August 30, 2024. FINDINGS: Comments: Unknown LMP. Number of Gestational Sacs: 1 Gestational Sac Shape: Normal Number of Fetuses: 1 Heart Rate: 106 beats per minute (average) Yolk Sac: Present and unremarkable. Placenta: Presently not well-visualized Amniotic Fluid Volume: Subjectively normal for gestational age. Uterine Abnormalities: Maternal uterus is unremarkable. Ovaries / Adnexa: Right maternal ovary is visualized and unremarkable. DIMENSIONS: Parameter Measurement / EGA [place] Rump Length: 2 mm/6 weeks and 0 days Gestational Sac: 1.4 cm/6 weeks and 2 days Yolk Sac: 3 mm/ ESTIMATED GESTATIONAL AGE: By Ultrasound: 6 weeks and 1 day ESTIMATED DATE OF DELIVERY: By Ultrasound: July 11, 2025 US/Transvaginal w/Preg US IMPRESSION: Single live intrauterine gestation with a mean gestational age of 6 weeks and 1 day. Reading Location: [id number]
== END | disposition home or self-care (01) ==
LOC: US 11:51
PROVIDERS: PCP Internal Medicine; Referring Provider Advanced Practice Midwife; Visit Provider Advanced Practice Midwife
DX: Z34.91 Encounter for supervision of normal pregnancy, unspecified, first trimester (principal)
CPT/HCPCS: 76817

== ENCOUNTER 2024-11-26 22:08 | Emergency (ER) | payer MEDICAID, SELFPAY ==
[2024-11-26 22:09] VITALS: BP 157/109; PULSE 108; RESP 22; TEMP 36.2; O2SAT 100; BMI 48.9
--- NOTE | 2024-11-26 22:26 | US_ITS ---
PROCEDURE: TRANSVAGINAL W/PREG US 11/26/2024 REASON FOR EXAM: ? MISCARRIAGE TECHNIQUE: Procedure Code: [id number] Modality: US Procedure: TRANSVAGINAL W/PREG US COMPARISON: 11/16/2024 FINDINGS The uterus measures 12.8 x 7.7 x 6.6 cm. A gestational sac is identified within the uterus. Within this gestational sac, a pole and yolk sac are identified. The crown rump length measures 13 mm and corresponds to a gestational age of 7 weeks 4 days. Real-time examination confirms cardiac activity with a heart rate of 152 bpm. A small amount of fluid is noted within the cervical canal. Both ovaries are not visualized. No adnexal masses are seen. There is no fluid in the cul-de-sac. US/Transvaginal w/Preg US IMPRESSION: Live intrauterine with a gestational age of 7 weeks 4 days. The estimated sonographic delivery date is: 07/11/2025. Complete anatomical assessment should be performed at 19-20 wks. Reading Location: [id number]
--- OUTSIDE RECORDS SUMMARY | 2024-11-26 22:31 | XMS RPT_ITS | CCD ---
Author Organization [facility] Care Team Providers Care Restrictive Preparation Operator Name Role Phone Care Physician, No Primary Primary Care Provider Unavailable Care Physician, No Primary Referring Provider Un available Magen TEAM OTR TRUCK DRIVER, TEAM OTR TRUCK DRIVER-C Xenia Attending Provider [phone] Dr. Josseline Celeste Attending Provider [phone] Care Physician, No Primary Primary Care Provider Unavailable Care Physician, No Primary Referring Provider Un available Dr. Josseline Celeste Attending Provider [phone] Dr. Alondra Ryan Attending Provider [phone] Care Physician, No Primary Primary Care Provider Unavailable Care Physician, No Primary Referring Provider Un available Care Physician, No Primary Referring Provider Un available Costa TEAM OTR TRUCK DRIVER, TEAM OTR TRUCK DRIVER-C Tonny Attending Provider [phone] Dr. Alondra Ryan Primary Care Provider Costa TEAM OTR TRUCK DRIVER, TEAM OTR TRUCK DRIVER-C Tonny Primary Care Provider Costa TEAM OTR TRUCK DRIVER, TEAM OTR TRUCK DRIVER-C Tonny Referring Provider [phone] Care Physician, No Primary Referring Provider Un available Costa TEAM OTR TRUCK DRIVER, TEAM OTR TRUCK DRIVER-C Tonny Attending Provider [phone] Dr. Alondra Ryan Primary Care Provider Costa TEAM OTR TRUCK DRIVER, TEAM OTR TRUCK DRIVER-C Tonny Primary Care Provider Costa TEAM OTR TRUCK DRIVER, TEAM OTR TRUCK DRIVER-C Tonny Referring Provider [phone] Dr. Alondra Ryan Referring Provider [phone] Dr. Antione Sofia Attending Provider Costa TEAM OTR TRUCK DRIVER, TEAM OTR TRUCK DRIVER-C Tonny Primary Care Provider Costa TEAM OTR TRUCK DRIVER, TEAM OTR TRUCK DRIVER-C Tonny Referring Provider [phone] DERIC Guevara Attending Provider [phone] Dr. Rhina Kulkarni Attending Provider [phone] Costa TEAM OTR TRUCK DRIVER, TEAM OTR TRUCK DRIVER-C Tonny Primary Care Provider Costa TEAM OTR TRUCK DRIVER, TEAM OTR TRUCK DRIVER-C Tonny Referring Provider [phone] Dr. Rhina Kulkarni Primary Care Provider Dr. Rhina Kulkarni Referring Provider [phone] Dr. Cristino Harmon Attending Provider [phone] Igor TEAM OTR TRUCK DRIVER, TEAM OTR TRUCK DRIVER-C Tonny Referring Provider [phone] Dr. Rhina Kulkarni Primary Care Provider Dr. Rhina Kulkarni Attending Provider [phone] Dr. Rhina Kulkarni Referring Provider [phone] Dr. Cristino Harmon Attending Provider [phone] DERIC Guevara Attending Provider DERIC Feliciano Attending Provider [phone] Cayla FLOYD, Dr. Lantigua Primary Care Provider [phone] Dr. Josseline Celeste DO Attending Provider Cayla FLOYD, Dr. Lantigua Referring Provider Derrick FLOYD, Dr. Lobato Attending Provider Derrick FLOYD, Dr. Lobato Referring Provider Moomanena TEAM OTR TRUCK DRIVER-C, Fabrizio Attending Provider Cheryle Meza Attending Unavailable Cayla, Rhina Primary Care Unavailable Cheryle Meza Referring Unavailable Josseline Celeste Attending Unavailabl e Osage, Rhina Primary Care Unavailable Osage, Rhina Primary Care Unavailable Cheryle Meza Attending Unavailable Cheryle Meza Referring Unavailable Osage, Rhina Primary Care Unavailable Cheryle Meza Attending Unavailable Cheryle Meza Referring Unavailable Cheryle Meza Attending Unavailable Cayla, Rhina Primary Care Unavailable Cheryle Meza Referring Unavailable Sriram Segal Attending Unavailable Osage, Rihna Primary Care Unavailable Cayla, Rhina Primary Care Unavailable Yoon Wilkins Attending Unavailable Yoon Wilkins Referring Unavailable Cayla, Rhina Referring Unavailable aJrod Bianchi NP Attending Unavailable Cayla, Rhina Primary Care Unavailable Cheryle Meza Attending Unavailable Osage, Rhina Primary Care Unavailable Osage, Rhina Referring Unavailable Fabrizio Rubi Attending Unavailable Osage, Rhina Primary Care Unavailable Cayla, Rhina Referring Unavailable Osage, Rhina Primary Care Unavailable Kimberly Werner Attending Unavailable Medications Current Medications Medication Drug Class(es) Dates Sig (Normalized) Sig (Original) [id number] 200 actuat albuterol 0.09 mg/actuat metered dose inhaler (20 sources) beta2-Adrenergic Agonist Start: 12-11-2021 End: 01-13-2023 Albuterol Sulfate (Proair Hfa) 90 mcg/actuation HFA aerosol inhaler Active 1 - 2 NMA INHALATION EVERY 6 HOURS as needed for shortness of breath or wheezing 8.5 January 13, 2023 11:12am Start: 12-11-2021 End: 01-13-2023 take 1 puff(s) by inhalation every six hours Albuterol Sulfate (Proair Hfa) 90 mcg/actuation HFA aerosol inhaler Active 1 - 2 PUFF INHALATION EVERY 6 HOURS 8.5 January 13, 2023 11:12am Start: 09-06-2020 End: 02-06-2021 Albuterol Sulfate 90 mcg/act uation HFA aerosol inhaler Discontinued 2 NMA INHALATION EVERY 6 HOURS as needed for shortness of breath or wheezing 8.5 September 06, 2020 12:00am February 06, 2021 1:07pm Start: 09-06-2020 End: 02-06-2021 take 1 puff(s) by inhalation every six hours Albuterol Sulfate Discontinued 2 PUFF INHALATION EVERY 6 HOURS 8.5 September 06, 2020 12:00am February 06, 2021 1:07pm Start: 03-19-2020 End: 06-12-2020 Albuterol Sulfate 18 GM HFA aerosol inhaler Discontinued 1 NMA INHALATION EVERY 6 HOURS NEEDED as needed for Sob &/Or Wheezing March 19, 2020 1:00am June 12, 2020 10:21am Start: 03-19-2020 End: 06-12-2020 take 1 puff(s) by inhalation every six hours as needed Albuterol Sulfate Discontinued 1 PUFF INHALATION EVERY 6 HOURS NEEDED March 19, 2020 1:00am June 12, 2020 10:21am azelastine hydrochloride 0.5 mg/ml ophthalmic solution (7 sources) Histamine-1 Receptor Antagonist Start: 08-04-2023 Azelastine 0.05 % drops Active 1 NMA OPHTHALMIC TWICE A DAY 6 0 August 04, 2023 12:00am cetirizine hydrochloride 10 mg oral capsule (20 sources) Histamine-1 Receptor Antagonist Start: 06-16-2022 take 1 capsule by mouth once daily as needed Cetirizine (Zyrtec) 10 mg capsule Active 10 mg PO DAILY as needed for allergy symptoms June 16, 2022 12:00am Start: 12-11-2021 End: 04-29-2022 take 1 capsule by mouth twice daily Cetirizine (Zyrtec) 10 mg capsule Discontinued 10 mg PO TWICE A DAY December 11, 2021 12:00am April 29, 2022 12:24pm Start: 08-21-2020 End: 02-06-2021 take 1 tablet by mouth once daily Cetirizine (Zyrtec) 10 mg Tablet Discontinued 10 mg PO DAILY August 21, 2020 12:00am February 06, 2021 1:07pm allergies Start: 09-03-2017 End: 04-28-2018 take 1 tablet by mouth once daily Cetirizine 10 MG tablet Discontinued 10 mg PO DAILY September 03, 2017 12:00am April 28, 2018 5:14pm allergies 30 actuat fluticasone furoate 0.1 mg/actuat / vilanterol 0.025 mg/actuat dry powder inhaler (18 sources) Corticosteroid, beta2-Adrenergic Agonist Start: 06-17-2021 Fluticasone Furoate-Vilanterol (Breo Ellipta) 100-25 mcg/dose blister with device Active 1 INH INHALATION Q24H 60 June 17, 2021 4:20pm Start: 03-19-2020 End: 06-12-2020 take 1 dose by inhalation once daily Fluticasone Furoate-Vilanterol 1 EACH blister with device Discontinued 1 NMA INHALATION DAILY March 19, 2020 1:00am June 12, 2020 10:21am Start: 03-19-2020 End: 06-12-2020 take 1 puff(s) by inhalation once daily Fluticasone Furoate-Vilanterol Discontinued 1 PUFF INHALATION DAILY March 19, 2020 1:00am June 12, 2020 10:21am norethindrone acetate 5 mg o ral tablet (14 sources) Start: 08-24-2024 Norethindrone Acetate 5 mg tablet Active 5 mg PO .COMPLEX 30 0 August 24, 2024 12:00am 5 mg PO BID x 3 days and then once daily for remainder Start: 09-28-2023 End: 10-03-2023 take 1 tablet by mouth three times daily, then take 1 tablet by mouth twice daily Norethindrone Acetate (Aygestin) 5 mg tablet Discontinued 5 mg PO .COMPLEX 45 0 September 28, 2023 12:00am October 03, 2023 10:02pm 5 mg PO tid until bleeding stops X 24 hr then bid to finish Rx predniSONE 50 mg oral tablet (20 sources) Start: 10-05-2024 take 1 tablet by mouth once daily Prednisone 50 mg tablet Active 50 mg PO daily 5 October 05, 2024 12:00am Start: 03-20-2024 End: 08-24-2024 take 3 tablets by mouth once daily Prednisone 20 mg tablet Discontinued 60 mg PO DAILY 12 March 20, 2024 1:47pm August 24, 2024 11:15am Start: 05-28-2023 End: 08-04-2023 take 1 tablet by mouth twice daily Prednisone 20 mg tablet Discontinued 20 mg PO TWICE A DAY 10 May 28, 2023 12:00am August 04, 2023 2:12pm Start: 11-19-2021 End: 12-11-2021 Prednisone 10 mg tablet Disc ontinued 0 PO daily 30 November 19, 2021 12:00am December 11, 2021 2:27pm 4 tabs for 3 days, then 3 tabs for 3 days, then 2 tabs for 3 days, then 1 tab for 3 days PO QDAY; administer with food or milk Start: 11-19-2021 End: 11-19-2021 Prednisone 10 mg tablet Disc ontinued NMA PO November 19, 2021 12:00am November 19, 2021 3:46pm Start: 12-01-2020 End: 12-28-2020 take 3 tablets by mouth once daily Prednisone 20 MG tablet Discontinued 60 mg PO DAILY 12 December 01, 2020 12:00am December 28, 2020 11:13am Start: 12-01-2020 End: 12-28-2020 take 60 mg by mouth once daily Prednisone Discontinued 60 MG PO DAILY December 01, 2020 12:00am December 28, 2020 11:13am tranexamic acid 650 mg oral tablet (7 sources) Antifibrinolytic Agent Start: 10-21-2023 take 2 tablets by mouth three times daily Tranexamic Acid 650 mg tablet Active 1300 mg PO THREE TIMES A DAY 60 2 October 21, 2023 12:00am valACYclovir 500 mg oral tablet (1 source) Herpesvirus Nucleoside Analog DNA Polymerase Inhibitor, Herpes Simplex Virus Nucleoside Analog DNA Polymerase Inhibitor, Herpes Zoster Virus Nucleoside Analog DNA Polymerase Inhibitor Start: 06-17-2021 take 500 mg by mouth once daily Valacyclovir Active 500 MG PO DAILY June 17, 2021 4:25pm Completed/Discontinued Medications Medication Drug Class(es) Dates Sig (Normalized) Sig (Original) acetaminophen 325 mg / HYDROcodone bitartrate 5 mg oral tablet (17 sources) Opioid Agonist Start: 01-11-2018 End: 01-16-2018 Hydrocodone-Acetami nophen 1 TABLET tablet Discontinued 1 {tbl} PO EVERY 8 HOURS NEEDED as needed for Pain 15 5 January 11, 2018 3:22pm January 15, 2018 1:00am January 16, 2018 1:10am Start: 01-11-2018 End: 01-16-2018 take 1 tablet by mouth every eight hours as needed Hydrocodone-Acetaminophen Discontinued 1 TABLET PO EVERY 8 HOURS NEEDED 15 January 11, 2018 3:22pm January 16, 2018 1:10am acetaminophen 325 mg / oxyCODONE hydrochloride 5 mg oral tablet (17 sources) Opioid Agonist Start: 01-11-2021 End: 01-18-2021 Oxycodone-Acetaminophen (Percocet) 5-325 mg tablet Discontinued 1 {tbl} PO Q4H as needed for pain 28 7 0 January 11, 2021 January 17, 2021 1:00am January 18, 2021 1:01am delivery delivered Encounter for delivery without indication acyclovir 400 mg oral tablet (17 sources) Herpesvirus Nucleoside Analog DNA Polymerase Inhibitor, Herpes Simplex Virus Nucleoside Analog DNA Polymerase Inhibitor, Herpes Zoster Virus Nucleoside Analog DNA Polymerase Inhibitor Start: 01-04-2018 End: 04-28-2018 take 1 tablet by mouth twice daily Acyclovir 400 MG tablet Discontinued 400 mg PO TWICE A DAY January 04, 2018 12:00am April 28, 2018 5:14pm COLD SORES ALPRAZolam 0.25 mg oral tablet (12 sources) Benzodiazepine Start: 05-07-2022 End: 06-16-2022 take 1 tablet by mouth once daily Alprazolam 0.25 mg tablet Discontinued 0.25 mg PO DAILY May 07, 2022 1:00am June 16, 2022 3:00pm amoxicillin 875 mg oral tablet (17 sources) Penicillin-class Antibacterial Start: 02-08-2021 End: 02-22-2021 take 1 tablet by mouth twice daily Amoxicillin 875 mg tablet Discontinued 875 mg PO TWICE A DAY 28 14 0 February 08, 2021 1:00am February 21, 2021 1:00am February 22, 2021 1:02am amoxicillin 875 mg / clavulanate 125 mg oral tablet (20 sources) Penicillin-class Antibacterial Start: 05-28-2023 End: 08-04-2023 Amoxicillin-Pot Clavulanate 875-125 mg tablet Discontinued 1 {tbl} PO Q12H May 28, 2023 12:00am August 04, 2023 2:13pm Start: 05-28-2023 take 1 tablet by madi th every twelve hours Amoxicillin-Pot Clavulanate Active 1 TABLET PO Q12H May 28, 2023 12:00am Start: 05-07-2022 End: 06-16-2022 Amoxicillin-Pot Clavulanate 875-125 mg tablet Discontinued 1 {tbl} PO TWICE A DAY May 07, 2022 1:00am June 16, 2022 3:01pm Start: 05-07-2022 End: 06-16-2022 take 1 tablet by mouth twice daily Amoxicillin-Pot Clavulanate Discontinued 1 TABLET PO TWICE A DAY May 07, 2022 1:00am June 16, 2022 3:01pm Start: 05-28-2021 End: 06-17-2021 Amoxicillin-Pot Clavulanate 875-125 mg Tablet Discontinued 1 {tbl} PO TWICE A DAY May 28, 2021 12:00am June 17, 2021 2:57pm Start: 05-28-2021 End: 06-17-2021 take 1 tablet by mouth twice daily Amoxicillin-Pot Clavulanate Discontinued 1 TABLET PO TWICE A DAY May 28, 2021 12:00am June 17, 2021 2:57pm Start: 01-15-2021 End: 01-22-2021 Amoxicillin-Pot Clavulanate (Augmentin) 500-125 mg tablet Discontinued 1 {tbl} PO TWICE A DAY 14 7 0 January 15, 2021 1:00am January 21, 2021 1:00am January 22, 2021 1:01am azithromycin 250 mg oral tablet (15 sources) Macrolide Antimicrobial Start: 11-22-2021 End: 12-11-2021 Azithromycin 250 mg tablet Discontinued 0 PO .COMPLEX 6 0 November 22, 2021 12:00am December 11, 2021 2:27pm Take two tablets by mouth on day one then one tablet by mouth on days 2-5 benzocaine 15 mg / menthol 10 mg oral lozenge (8 sources) Standardized Chemical Allergen Start: 05-22-2023 End: 08-04-2023 Benzocaine-Menthol (Chloraseptic Max) 15-10 mg lozenge Discontinued 1 NMA MUCOUS MEM .4 times daily as needed for sore throat 15 May 22, 2023 12:00am August 04, 2023 2:13pm Start: 05-22-2023 Benzocaine-Men thol (Chloraseptic Max) 15-10 mg lozenge Active 1 LOZENGE MUCOUS MEM .4 times daily May 22, 2023 12:00am benzonatate 200 mg oral capsule (13 sources) Non-narcotic Antitussive Start: 12-11-2021 End: 06-16-2022 Benzonatate 200 mg capsule Discontinued 200 mg PO 2 to 3 times per day as needed for cough 60 1 December 11, 2021 12:00am June 16, 2022 3:00pm brompheniramine maleate 0.4 mg/ml / dextromethorphan hydrobromide 2 mg/ml / pseudoephedrine hydrochloride 6 mg/ml oral solution (15 sources) alpha-Adrenergic Agonist, Uncompetitive B-hktnca-M-aspartate Receptor Antagonist, Sigma-1 Agonist Start: 11-19-2021 End: 12-11-2021 Brompheniramine-Pseu doeph-Dm 2-30-10 mg/5 mL syrup Discontinued mL PO November 19, 2021 12:00am December 11, 2021 2:27pm Start: 11-19-2021 End: 12-11-2021 Rsavvghfihypvfy-Cmrjpvfel-Hi Discontinued ML PO November 19, 2021 12:00am December 11, 2021 2:27pm Budesonide-Formoterol (20 sources) Corticosteroid, beta2-Adrenergic Agonist Start: 01-13-2023 End: 08-24-2024 Budesonide-Formoterol (Symbicort) 160-4.5 mcg/actuation HFA aerosol inhaler Discontinued 2 NMA INHALATION TWICE A DAY 10.2 2 January 13, 2023 1:59pm August 24, 2024 11:14am Start: 01-13-2023 End: 08-24-2024 Budesonide-Formoterol (Symbi polly) 160-4.5 mcg/actuation HFA aerosol inhaler Discontinued 2 NMA INHALATION TWICE A DAY 10.2 January 13, 2023 1:59pm August 24, 2024 11:14am Start: 01-13-2023 take 1 puff(s) by in halation twice daily Budesonide-Formoterol (Symbicort) 160-4.5 mcg/actuation HFA aerosol inhaler Active 2 PUFF INHALATION TWICE A DAY 10.2 January 13, 2023 1:59pm Start: 01-13-2023 take 1 puff(s) by in halation twice daily Budesonide-Formoterol (Symbicort) 160-4.5 mcg/actuation HFA aerosol inhaler Active 2 PUFF INHALATION TWICE A DAY 10.2 January 13, 2023 12:59pm Start: 11-19-2021 End: 04-29-2022 Budesonide-Formoterol (Symbi polly) 160-4.5 mcg/actuation HFA aerosol inhaler Discontinued 2 NMA INHALATION TWICE A DAY 10.2 2 November 19, 2021 12:00am April 29, 2022 12:24pm Start: 11-19-2021 End: 04-29-2022 Budesonide-Formoterol (Symbi polly) 160-4.5 mcg/actuation HFA aerosol inhaler Discontinued 2 NMA INHALATION TWICE A DAY 10.2 November 19, 2021 12:00am April 29, 2022 12:24pm Start: 11-19-2021 End: 04-29-2022 take 1 puff(s) by inhalation twice daily Budesonide-Formoterol (Symbicort) 160-4.5 mcg/actuation HFA aerosol inhaler Discontinued 2 PUFF INHALATION TWICE A DAY 10.2 November 19, 2021 12:00am April 29, 2022 12:24pm Start: 11-19-2021 End: 04-29-2022 take 1 puff(s) by inhalation twice daily Budesonide-Formoterol (Symbicort) 160-4.5 mcg/actuation HFA aerosol inhaler Discontinued 2 PUFF INHALATION TWICE A DAY 10.2 November 18, 2021 11:00pm April 29, 2022 11:24am Start: 11-19-2021 take 1 puff(s) by in halation twice daily Budesonide-Formoterol (Symbicort) 160-4.5 mcg/actuation HFA aerosol inhaler Active 2 PUFF INHALATION TWICE A DAY 10.2 November 18, 2021 11:00pm Start: 11-19-2021 take 1 puff(s) by in halation twice daily Budesonide-Formoterol (Symbicort) 160-4.5 mcg/actuation HFA aerosol inhaler Active 2 PUFF INHALATION TWICE A DAY 10.2 November 19, 2021 12:00am busPIRone hydrochloride 5 mg oral tablet (12 sources) Start: 01-13-2023 End: 08-10-2023 take 1 tablet by mouth twice daily Buspirone 5 mg tablet Discontinued 5 mg PO TWICE A DAY 60 0 January 13, 2023 1:00am August 10, 2023 8:54am cephalexin 500 mg oral capsule (17 sources) Cephalosporin Antibacterial Start: 02-04-2021 End: 02-08-2021 take 1 capsule by mouth every twelve hours Cephalexin 500 mg capsule Discontinued 500 mg PO Q12H 14 7 February 04, 2021 1:00am February 10, 2021 1:00am February 08, 2021 12:43pm cholecalciferol 1.25 mg oral tablet (20 sources) Vitamin D Start: 05-07-2022 End: 06-16-2022 take 1 tablet by mouth every week Cholecalciferol (Vitamin D3) 1,250 mcg (50,000 unit) tablet Discontinued 1250 ug PO EVERY WEEK 12 May 20, 2022 3:03pm June 16, 2022 3:01pm citalopram 40 mg oral tablet (20 sources) Serotonin Reuptake Inhibitor Start: 05-20-2022 End: 01-13-2023 take 1 tablet by mouth once daily Citalopram 40 mg tablet Discontinued 40 mg PO DAILY 90 1 May 20, 2022 3:03pm January 13, 2023 11:45am ANXIETY/DEPRESSION Start: 12-11-2021 End: 04-29-2022 take 1 tablet by mouth once daily Citalopram 40 mg tablet Discontinued 40 mg PO DAILY 90 2 December 11, 2021 2:44pm April 29, 2022 12:25pm Start: 12-11-2021 End: 12-11-2021 take 2 tablets by mouth once daily Citalopram 20 mg tablet Discontinued 40 mg PO DAILY December 11, 2021 12:00am December 11, 2021 2:47pm Start: 12-11-2021 End: 12-11-2021 take 40 mg by mouth once daily Citalopram Discontinued 40 MG PO DAILY December 11, 2021 12:00am December 11, 2021 2:47pm Start: 06-17-2021 take 1 tablet by madi th once daily Citalopram Active 20 MG PO DAILY 60 June 17, 2021 4:19pm Take one tab daily for 2 weeks then increase to 40 mg (two tabs) daily. Start: 01-04-2018 End: 04-28-2018 take 1 tablet by mouth once daily Citalopram 40 MG tablet Discontinued 40 mg PO DAILY January 04, 2018 12:00am April 28, 2018 5:14pm ANXIETY/DEPRESSION codeine phosphate 2 mg/ml / guaiFENesin 20 mg/ml oral solution (15 sources) Opioid Agonist Start: 11-22-2021 End: 12-11-2021 take 1 mL by mouth every six hours as needed for cough Codeine-Guaifenesin 10-100 mg/5 mL liquid Discontinued 5 mL PO EVERY 6 HOURS as needed for cough 120 0 November 22, 2021 12:00am December 11, 2021 2:27pm Start: 11-22-2021 End: 12-11-2021 take 1 mL by mouth every six hours Codeine-Guaifenesin Discontinued 5 ML PO EVERY 6 HOURS 120 November 22, 2021 12:00am December 11, 2021 2:27pm cyclobenzaprine hydrochloride 5 mg oral tablet (9 sources) Muscle Relaxant Start: 04-07-2023 End: 05-22-2023 take 1 tablet by mouth three times daily as needed for pain Cyclobenzaprine 5 mg tablet Discontinued 5 mg PO THREE TIMES A DAY as needed for pain 30 April 07, 2023 1:00am May 22, 2023 12:45pm dexamethasone 6 mg oral tablet (17 sources) Corticosteroid Start: 03-19-2020 End: 06-12-2020 take 1 tablet by mouth once daily Dexamethasone 6 MG tablet Discontinued 6 mg PO DAILY 4 March 19, 2020 1:00am June 12, 2020 10:21am start 03/20/20 dicyclomine hydrochloride 10 mg oral capsule (20 sources) Anticholinergic Start: 05-20-2022 End: 06-16-2022 take 1 capsule by mouth twice daily Dicyclomine 10 mg capsule Discontinued 10 mg PO TWICE A DAY 60 May 20, 2022 3:03pm June 16, 2022 3:00pm Start: 11-19-2021 End: 04-29-2022 take 1 capsule by mouth twice daily Dicyclomine 10 mg capsule Discontinued 10 mg PO TWICE A DAY 60 November 19, 2021 12:00am April 29, 2022 12:25pm doxycycline hyclate 100 mg oral capsule (20 sources) Tetracycline-class Drug Start: 03-20-2024 End: 03-30-2024 take 1 capsule by mouth twice daily Doxycycline Hyclate 100 mg capsule Discontinued 100 mg PO TWICE A DAY 20 March 20, 2024 1:47pm March 29, 2024 1:00am March 30, 2024 1:18am Acute sinusitis, unspecified Start: 11-06-2022 End: 11-16-2022 take 1 capsule by mouth twice daily Doxycycline Hyclate 100 mg capsule Discontinued 100 mg PO TWICE A DAY 20 10 0 November 06, 2022 12:00am November 15, 2022 12:00am November 16, 2022 12:04am Acute sinusitis, unspecified Start: 06-16-2022 End: 06-26-2022 take 1 capsule by mouth twice daily Doxycycline Hyclate 100 mg capsule Discontinued 100 mg PO TWICE A DAY 20 10 June 16, 2022 12:00am June 25, 2022 12:00am June 26, 2022 12:05am Acute sinusitis, unspecified ergocalciferol 1.25 mg oral capsule (15 sources) Provitamin D2 Compound Start: 11-22-2021 End: 04-29-2022 Ergocalciferol (Vitamin D2) 1,250 mcg (50,000 unit) capsule Discontinued 20742 U PO EVERY WEEK 02 08November 22, 2021 12:00am April 29, 2022 12:25pm Start: 11-22-2021 End: 04-29-2022 take 62775 [IU] by mouth every week Ergocalciferol (Vitamin D2) Discontinued 38115 UNIT PO EVERY WEEK November 22, 2021 12:00am April 29, 2022 12:25pm ferrous gluconate 324 mg oral tablet (15 sources) Start: 11-22-2021 End: 04-29-2022 take 1 tablet by mouth once daily Ferrous Gluconate 324 mg (37.5 mg iron) tablet Discontinued 324 mg PO DAILY November 22, 2021 12:00am April 29, 2022 12:25pm ferrous sulfate 325 mg oral tablet (20 sources) Start: 11-06-2020 End: 02-06-2021 take 1 tablet by mouth once daily Ferrous Sulfate (Iron) 325 mg (65 mg iron) Tablet Discontinued 325 mg PO DAILY November 06, 2020 12:00am February 06, 2021 1:07pm anemia Start: 06-18-2015 End: 04-28-2018 take 1 tablet by mouth once daily Ferrous Sulfate 325 MG tablet Discontinued 325 mg PO DAILY@0800 September 03, 2017 4:40pm April 28, 2018 5:14pm anemia Fluad Quad (65yr up)(PF) 60 mcg (15 mcg x 4)/0.5mL IM syringe (flu vac (2 sources) Start: 12-05-2020 End: 12-05-2020 inject 1 mL by intramuscular injection once Fluad Quad (65yr up)(PF) 60 mcg (15 mcg x 4)/0.5mL IM syringe (flu vac Discontinued 0.5 ML IM ONCE 0.5 December 05, 2020 12:43pm December 05, 2020 2:25pm ibuprofen 800 mg oral tablet (17 sources) Nonsteroidal Anti-inflammatory Drug Start: 01-22-2021 End: 02-01-2021 take 1 tablet by mouth three times daily as needed for pain Ibuprofen 800 mg tablet Discontinued 800 mg PO THREE TIMES A DAY as needed for pain 30 10 0 January 22, 2021 1:00am January 31, 2021 1:00am February 01, 2021 1:01am Inhalational Spacing Device (Aerochamber Mv) spacer (15 sources) Start: 11-15-2021 End: 04-29-2022 Inhalational Spacing Device (Aerochamber Mv) spacer Discontinued 0 .Route 1 0 November 15, 2021 12:00am April 29, 2022 12:25pm As directed Start: 11-15-2021 End: 04-29-2022 Inhalational Spacing Device (Aerochamber Mv) spacer Discontinued 0 .Route 1 November 15, 2021 12:00am April 29, 2022 12:25pm As directed Start: 11-15-2021 End: 04-29-2022 Inhalational Spacing Device (Aerochamber Mv) spacer Discontinued 0 .Route 1 November 14, 2021 11:00pm April 29, 2022 11:25am As directed Start: 11-15-2021 Inhalational S pacing Device (Aerochamber Mv) spacer Active 0 .Route 1 November 14, 2021 11:00pm As directed Start: 11-15-2021 Inhalational S pacing Device (Aerochamber Mv) spacer Active 0 .Route 1 November 15, 2021 12:00am As directed meclizine hydrochloride 25 mg oral tablet (17 sources) Antiemetic Start: 06-12-2020 End: 07-12-2020 take 1 tablet by mouth three times daily as needed for dizziness Meclizine 25 mg tablet Discontinued 25 mg PO THREE TIMES A DAY as needed for dizziness 90 30 June 12, 2020 12:00am July 11, 2020 12:00am July 12, 2020 12:01am methocarbamol 500 mg oral tablet (17 sources) Muscle Relaxant Start: 01-22-2021 End: 02-01-2021 take 1 tablet by mouth every eight hours as needed for pain Methocarbamol 500 mg tablet Discontinued 500 mg PO Q8H as needed for muscle pain 20 10 January 22, 2021 1:00am January 31, 2021 1:00am February 01, 2021 1:01am montelukast 10 mg oral tablet (13 sources) Leukotriene Receptor Antagonist Start: 12-11-2021 End: 04-29-2022 take 1 tablet by mouth once daily in the evening Montelukast 10 mg tablet Discontinued 10 mg PO EVERY EVENING 90 December 11, 2021 12:00am April 29, 2022 12:25pm naproxen 500 mg oral tablet (17 sources) Nonsteroidal Anti-inflammatory Drug Start: 01-11-2021 End: 01-21-2021 take 1 tablet by mouth twice daily as needed for pain Naproxen 500 mg tablet Discontinued 500 mg PO TWICE A DAY as needed for pain 20 10 January 11, 2021 12:00am January 20, 2021 1:00am January 21, 2021 1:01am omeprazole 40 mg delayed release oral capsule (13 sources) Proton Pump Inhibitor Start: 12-18-2021 End: 04-29-2022 take 1 capsule by mouth once daily Omeprazole 40 mg capsule,delayed release(DR/EC) Discontinued 40 mg PO DAILY 30 December 18, 2021 12:00am April 29, 2022 12:25pm ondansetron 4 mg disintegrating oral tablet (16 sources) Serotonin-3 Receptor Antagonist Start: 10-05-2023 End: 10-21-2023 take 1 tablet by mouth every eight hours as needed for nausea and vomiting Ondansetron 4 mg tablet,disintegrat ing Discontinued 4 mg PO Q8H as needed for nausea and vomiting 60 0 October 05, 2023 12:00am October 21, 2023 3:23pm Take 30 minutes prior to IV iron infusion Start: 04-07-2023 End: 05-22-2023 take 1 tablet by mouth every eight hours as needed for nausea and vomiting Ondansetron 4 mg tablet,disintegrating Discontinued 4 mg PO Q8H as needed for nausea and vomiting 30 0 April 07, 2023 1:00am May 22, 2023 12:45pm Vit,Florin 20-Jlrf-Jggen 1 TABLET tablet (2 sources) Start: 02-09-2017 End: 04-28-2018 Vit,Florin 24-Ugtq-Tgkhg 1 TABLET tablet Discontinued 1 {tbl} PO DAILY February 09, 2017 1:00am April 28, 2018 5:14pm Vit,Lqqy79-Edrp-Drtzi (10 sources) Start: 02-09-2017 End: 04-28-2018 take 1 tablet by mouth once daily Vit,Exll68-Rdga-Hhywb Discontinued 1 TABLET PO DAILY February 09, 2017 3:19pm April 28, 2018 5:14pm Start: 02-09-2017 End: 04-28-2018 take 1 tablet by mouth once daily Vit,Ygfq15-Hqau-Gxbiu Discontinued 1 TABLET PO DAILY February 09, 2017 12:00am April 28, 2018 4:14pm Start: 02-09-2017 End: 04-28-2018 take 1 tablet by mouth once daily Vit,Vgea92-Dxjw-Jdkej Discontinued 1 TABLET PO DAILY February 09, 2017 1:00am April 28, 2018 5:14pm Vit,Ylcg73-Irpr-Plvmu 1 TABLET tablet (5 sources) Start: 02-09-2017 End: 04-28-2018 take 1 tablet by mouth once daily Vit,Lqnh78-Kpbm-Gtojz 1 TABLET tablet Discontinued 1 {tbl} PO DAILY February 09, 2017 1:00am April 28, 2018 5:14pm Start: 02-09-2017 End: 04-28-2018 take 1 tablet by mouth once daily Vit,Iyiz76-Budk-Gjefq 1 TABLET tablet Discontinued 1 {tbl} PO DAILY February 09, 2017 1:00am April 28, 2018 5:14pm 72 hr scopolamine 0.0139 mg/hr transdermal system (7 sources) Anticholinergic Start: 08-22-2023 End: 10-03-2023 Scopolamine Base 1 mg over 3 days patch 3 day Discontinued 1 NMA TD Every 3 Days as needed for motion sickness 4 0 August 22, 2023 12:00am October 03, 2023 10:02pm sulfamethoxazole 800 mg / trimethoprim 160 mg oral tablet (17 sources) Dihydrofolate Reductase Inhibitor Antibacterial, Sulfonamide Antimicrobial Start: 02-08-2021 End: 02-22-2021 Sulfamethoxazole- Trimethoprim (Bactrim Ds) 800-160 mg tablet Discontinued 1 {tbl} PO TWICE A DAY 28 14 0 February 08, 2021 1:00am February 21, 2021 1:00am February 22, 2021 1:02am SUMAtriptan 25 mg oral tablet (9 sources) Serotonin-1b and Serotonin-1d Receptor Agonist Start: 04-20-2023 End: 08-24-2024 take 1 tablet by mouth every two hours Sumatriptan Succinate (Imitrex) 25 mg tablet Discontinued 0 PO .COMPLEX 10 0 April 20, 2023 1:00am August 24, 2024 11:15am take 1 tab at onset of headache; if no relief may repeat 1 tab after at least 2 hrs; max = 4 tabs/24 hr PO Problems Active Problems Problem Classification Problem Date Documented Da te Episodic/Chronic Administrative/social admission (4 sources) Persons encountering health services in other specified circumstances; Translations: [Other reasons for seeking consultation] 01-13-2023 Episodic Anxiety disorders (8 sources) Anxiety disorder, unspecified; Translations: [Anxiety state, unspecified] 01-13-2023 Chronic Asthma (20 sources) Asthma; Translations: [Unspecified asthma, uncomplicated] Chronic Comment on above: NO INHALER Cancer of cervix (19 sources) Atypical squamous cells of undetermined significance on cervical Papanicolaou smear; Translations: [Atypical squamous cells of undetermined significance on cytologic smear of cervix (ASC-US)] 01-10-2021 Episodic Comment on above: ascus hpv neg repeat pap 3 years Conditions associated with dizziness or vertigo (20 sources) Dizziness; Translations: [Dizziness and giddiness] Episodic Contraceptive and procreative management (12 sources) Patient encounter status; Translations: [Encounter for other general counseling and advice on procreation] 01-12-2023 Episodic Deficiency and other anemia (18 sources) Anemia; Translations: [Anemia, unspecified] 01-13-2023 Episodic Deficiency and other anemia (18 sources) Iron deficiency anemia; Translations: [Iron deficiency anemia, unspecified] 01-13-2023 Episodic Deficiency and other anemia (14 sources) Iron deficiency anemia, unspecified; Translations: [Iron deficiency anemia, unspecified] Episodic Deficiency and other anemia (3 sources) Anemia, unspecified; Translations: [Anemia, unspecified] Episodic Disorders of lipid metabolism (4 sources) Mixed hyperlipidemia; Translations: [Mixed hyperlipidemia] 01-13-2023 Chronic Early or threatened labor (19 sources) False labor; Translations: [False labor, unspecified] 01-10-2021 Episodic Esophageal disorders (14 sources) Gastroesophageal reflux disease; Translations: [Gastro-esophageal reflux disease without esophagitis] Chronic Gastrointestinal hemorrhage (20 sources) Gastrointestinal hemorrhage; Translations: [Gastrointestinal hemorrhage, unspecified] Episodic Headache; including migraine (7 sources) Migraine; Translations: [Migraine, unspecified, not intractable, without status migrainosus] 01-06-2024 Chronic Headache; including migraine (20 sources) Headache; Translations: [Headache] Episodic Headache; including migraine (1 source) Headache; including migraine; Translations: [Headache, unspecified] Onset: Hypertension complicating ; childbirth and the puerperium (19 sources) -induced hypertension; Translations: [Gestational [-induced] hypertension without significant proteinuria, unspecified trimester] 12-14-2020 Episodic Comment on above: baseline labs WNL Influenza (9 sources) Influenza due to Influenza B virus; Translations: [Influenza due to other identified influenza virus with other respiratory manifestations] 05-22-2023 Episodic Intracranial injury (2 sources) Concussion injury of body structure; Translations: [Concussion] 04-07-2023 Episodic Menstrual disorders (8 sources) Menorrhagia; Translations: [Excessive and frequent menstruation with regular cycle] Onset: 5 10-21-2023 Chronic Comment on above: US:PCOS. Declines ho rmones. Try lysteda. Mood disorders (20 sources) Depressive disorder; Translations: [Depression] Chronic Nutritional deficiencies (4 sources) Vitamin D deficiency, unspecified; Translations: [Unspecified vitamin D deficiency] 01-13-2023 Chronic Nutritional deficiencies (3 sources) Vitamin deficiency, unspecified; Translations: [Unspecified vitamin deficiency] Episodic Other complications of ; puerperium affecting management of mother (19 sources) Infection of obstetric surgical wound ; Translations: [Infection of obstetric surgical wound, superficial incisional site] 01-12-2023 Episodic Other complications of ; puerperium affecting management of mother (7 sources) delivery - delivered; Translations: [Encounter for delivery without indication] Episodic Other complications of ; puerperium affecting management of mother (1 source) Infection of obstetric surgical wound, superficial incisional site; Translations: [Other complications of obstetrical surgical wounds, unspecified as to episode of care or not applicable] Episodic Other complications of ; puerperium affecting management of mother (12 sources) Deliveries by ; Translations: [Encounter for delivery without indication] 01-12-2023 Episodic Comment on above: 38 ctx JV/SM RLTCS Other complications of (19 sources) Maternal obesity complicating , childbirth and the puerperium, antepartum; Translations: [Obesity complicating , unspecified trimester] 01-10-2021 Chronic Comment on above: weekly nsts after 32 growth q 4 weeks Other complications of (7 sources) Anemia during - baby not yet delivered; Translations: [Anemia complicating , unspecified trimester] Chronic Other complications of (12 sources) Anemia of ; Translations: [Anemia complicating , unspecified trimester] 01-10-2021 Chronic Comment on above: iron added needs CBC in 4 weeks Other complications of (19 sources) Reduced movement; Translations: [Decreased movements, third trimester, not applicable or unspecified] 12-05-2020 Episodic Comment on above: reactive NST triage 11/07, nl pree labs done due to CLEMENTS Other complications of (19 sources) Short cervical length in ; Translations: [Cervical shortening, second trimester] 12-05-2020 Episodic Comment on above: MFM consult, no funn eling and CL 48.0mm Other complications of (19 sources) High risk ; Translations: [Supervision of high risk , unspecified, unspecified trimester] 01-10-2021 Episodic Comment on above: PRR JIM: , bhavana Elena PC: Zahra Spouse: Jonah Other complications of (19 sources) H/O: depression; Translations: [History of depression, currently ] 01-10-2021 Episodic Other female genital disorders (12 sources) Abnormal uterine bleeding; Translations: [Abnormal uterine and vaginal bleeding, unspecified] 08-24-2024 Chronic Comment on above: labs, US, short cour se aygestin. declines IUD or OCP. failed Lysteda in past. discussed hysterectomy eventually once done with childbearing. PRN progesterone. Other female genital disorders (1 source) Abnormal uterine and vaginal bleeding, unspecified; Translations: [Abnormal uterine and vaginal bleeding, unspecified] Onset: Chronic Other female genital disorders (12 sources) Recurrent miscarriage; Translations: [Recurrent loss] 08-24-2024 Episodic Comment on above: APL panel and US ord ered Other gastrointestinal disorders (15 sources) Irritable bowel syndrome with diarrhea; Translations: [Irritable bowel syndrome with diarrhea] 05-03-2022 Chronic Other gastrointestinal disorders (3 sources) Irritable bowel syndrome with diarrhea; Translations: [Irritable bowel syndrome] Chronic Other gastrointestinal disorders (19 sources) Swallowing painful; Translations: [Dysphagia, unspecified] 06-05-2021 Episodic Other injuries and conditions due to external causes (2 sources) Unspecified injury of head, initial encounter; Translations: [Head injury, unspecified] 04-07-2023 Episodic Other lower respiratory disease (1 source) Postviral cough; Translations: [Upper airway cough syndrome] Episodic Other nutritional; endocrine; and metabolic disorders (20 sources) Obesity; Translations: [Obesity, unspecified] 11-15-2021 Chronic Other nutritional; endocrine; and metabolic disorders (4 sources) Obesity, unspecified; Translations: [Obesity, unspecified] Chronic Other nutritional; endocrine; and metabolic disorders (8 sources) Morbid (severe) obesity due to excess calories; Translations: [Morbid obesity] 01-13-2023 Chronic Other and delivery including normal (20 sources) care status; Translations: [Encounter for routine follow-up] Episodic Comment on above: genetics-low risk; n eg carrier. nl anatomy. GBS neg Other upper respiratory disease (19 sources) Acute bronchospasm; Translations: [Acute bronchospasm] 06-13-2020 Episodic Other upper respiratory infections (9 sources) Chronic sinusitis; Translations: [Chronic sinusitis, unspecified] 05-28-2023 Chronic Other upper respiratory infections (20 sources) Streptococcal sore throat; Translations: [Streptococcal pharyngitis] Onset: 5 Episodic Otitis media and related conditions (12 sources) Otitis media of right ear; Translations: [Otitis media, unspecified, right ear] 01-12-2023 Episodic Residual codes; unclassified (4 sources) Immunization not carried out because of patient refusal; Translations: [Vaccination not carried out because of patient refusal] 01-13-2023 Episodic Residual codes; unclassified (7 sources) Abnormal cytology findings; Translations: [Other nonspecific abnormal findings] 08-10-2023 Episodic Residual codes; unclassified (1 source) Other specified health status; Translations: [Other specified health status] Onset: Episodic Spondylosis; intervertebral disc disorders; other back problems (2 sources) Cervicalgia; Translations: [Cervicalgia] 04-07-2023 Episodic Viral infection (19 sources) Oral herpes simplex infection; Translations: [Herpesviral gingivostomatitis and pharyngotonsillitis] 06-15-2020 Episodic Past or Other Problems Problem Classification Problem Date Documented Da te Episodic/Chronic Acute bronchitis (20 sources) Acute bronchitis with bronchospasm; Translations: [Acute bronchitis, unspecified] Onset: 03-20-2024 12-09-2020 Episodic Hemorrhage during ; abruptio placenta; placenta previa (20 sources) Bleeding from female genital tract during ; Translations: [Antepartum hemorrhage, unspecified, unspecified trimester] Onset: 08-25-2024 07-02-2020 Episodic Comment on above: [facility] Results Test Name Value Interpretation Reference Range Facility Transvaginal w/Preg USon Transvaginal w/Preg [facility] Imaging Services [address] [place] [address] Transvaginal w/Preg MR#: [id number] Acct: [id number] Name: JANETTE CAMPO AUGUST Rep #: [id number] : 1995 F 29 From: Mukesh choi MD PCP: Dr. Rhina Kulkarni MD Status: REG CLI Study: Transvaginal w/Preg US Date of Exam: 11/16/24 Exam# [id number] Ordering Dr: Yoon Wilkins CNM PROCEDURE: TRANSVAGINAL W/PREG US 11/16/2024 REASON FOR EXAM: DATING TECHNIQUE: Procedure Code: USTVAGP Modality: US Procedure: TRANSVAGINAL W/PREG US COMPARISON: Prior study dated August 30, 2024. FINDINGS: Comments: Unknown LMP. Number of Gestational Sacs: 1 Gestational Sac Shape: Normal Number of Fetuses: 1 Heart Rate: 106 beats per minute (average) Yolk Sac: Present and unremarkable. Placenta: Presently not well-visualized Amniotic Fluid Volume: Subjectively normal for gestational age. Uterine Abnormalities: Maternal uterus is unremarkable. Ovaries / Adnexa: Right maternal ovary is visualized and unremarkable. DIMENSIONS: Parameter Measurement / EGA [place] Rump Length: 2 mm/6 weeks and 0 days Gestational Sac: 1.4 cm/6 weeks and 2 days Yolk Sac: 3 mm/ ESTIMATED GESTATIONAL AGE: By Ultrasound: 6 weeks and 1 day ESTIMATED DATE OF DELIVERY: By Ultrasound: July 11, 2025 US/Transvaginal w/Preg US IMPRESSION: Single live intrauterine gestation with a mean gestational age of 6 weeks and 1 day. Reading Location: [facility] CC: WILLIAM Wilkins; Dr. Rhina Kulkarni MD Stunner: Signed Normal [facility] Serum human chorionic gonado tropin detection for pregnancyOrdered By: Yoon Wilkins on 11-02-2024 HCG ( test) Ql 75 mIU/mL High <9 [facility] Comment on above: Gestational Age0.2-1 Week: 5-50 mIU/mL1-2 Weeks: 50-500 mIU/mL2-3 Weeks: 100-5000 mIU/mL3-4 Weeks: 500-10,000 mIU/mL4-5 Weeks:1000-50,000 mIU/mL5-6 Weeks: 10,000-100,000 mIU/mL6-8 Weeks: 15,000-200,000 mIU/mL2-3 Months:10,000-100,000 mIU/mL hCG Titer Quant., Serumon HCG QUANT. 75 mIU/mL High <9 non-preg [facility] Comment on above: Result Comment: Gest ational Age 0.2-1 Week: 5-50 mIU/mL 1-2 Weeks: 50-500 mIU/mL 2-3 Weeks: 100-5000 mIU/mL 3-4 Weeks: 500-10,000 mIU/mL 4-5 Weeks:1000-50,000 mIU/mL 5-6 Weeks: 10,000-100,000 mIU/mL 6-8 Weeks: 15,000-200,000 mIU/mL 2-3 Months:10,000-100,000 mIU/mL Performed By: #### L 700.8000 #### [facility] [address] [place], [address] Serum human chorionic gonado tropin detection for pregnancyOrdered By: Yoon Wilkins on 10-31-2024 HCG ( test) Ql 33 mIU/mL High <9 [facility] Comment on above: Gestational Age0.2-1 Week: 5-50 mIU/mL1-2 Weeks: 50-500 mIU/mL2-3 Weeks: 100-5000 mIU/mL3-4 Weeks: 500-10,000 mIU/mL4-5 Weeks:1000-50,000 mIU/mL5-6 Weeks: 10,000-100,000 mIU/mL6-8 Weeks: 15,000-200,000 mIU/mL2-3 Months:10,000-100,000 mIU/mL hCG Titer Quant., Serumon HCG QUANT. 33 mIU/mL High <9 non-preg [facility] Comment on above: Result Comment: Gest ational Age 0.2-1 Week: 5-50 mIU/mL 1-2 Weeks: 50-500 mIU/mL 2-3 Weeks: 100-5000 mIU/mL 3-4 Weeks: 500-10,000 mIU/mL 4-5 Weeks:1000-50,000 mIU/mL 5-6 Weeks: 10,000-100,000 mIU/mL 6-8 Weeks: 15,000-200,000 mIU/mL 2-3 Months:10,000-100,000 mIU/mL Performed By: #### L 700.8000 ####[facility] [id number] [place], [address] Rapid group A Streptococcus antigen assay at point of careOrdered By: Fabrizio Rubi on 10-05-2024 S. pyogenes Ag IA.rapid Ql (Throat) Negative [facility] Urgent Care Visit Reporton 0 10-05-2024 Urgent Care Visit Report [facility] [address], [address] [place] [address] OFFICE VISIT Date of Service: 10/05/24 MR#: [id number] Acct: [id number] Name: JANETTE CAMPO AUGUST Rep #: [id number] : 1995 Provider: KENDY Rubi Age/Sex: 29/F Location[facility] Status: Signed Intake Vital Signs 08/24/24 11:13 10/05/24 08:33 Height 5 ft Weight: 240 lb 6 oz BMI 46.9 BP 122/82 H 114/70 Blood Pressure Location Lt brachial Position Sitting Respiration 15 Pulse 81 Pulse Source NIBP Temp 97.7 F L Temp Source Oral Pulse Oximetry (%) 98 Oxygen Delivery Method room air Intake Visit Reasons: SORE THROAT Chief Complaint: ST, BA, chills 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 history of tonsillectomy but has had strep frequently since. concern for same [facility] Medical History Irritable bowel syndrome with diarrhea Low iron Gastric reflux Hypertension GI bleeding Infection of obstetric surgical wound, superficial incisional site delivery delivered heart deceleration Non-smoker Oral herpes Asthma Depression Anemia Surgical History Encounter for removal of skin lesion History of placement of ear tubes H/O myringotomy History of tonsillectomy History of esophagogastroduodenoscopy (EGD) H/O colonoscopy H/O toe surgery History of cholecystectomy delivery delivered Family History Father Epilepsy Migraines Mother Arthritis Anxiety Sister Anxiety Social History (Updated 08/24/24 @ 11:16 by Xenia Hines) household members: family housing: house number of children: 2 current occupational status: unemployed Smoking Status: Never smoker Electronic Cigarette Use: not used second hand exposure: No alcohol intake: never substance use type: does not use caffeine: Yes what type of physical activity do you participate in: walking seatbelt use: always do you feel safe at home: Yes additional social history: - 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 Denies any specific fevers. ROS: As noted in HPI Physical Exam: VITALS: Reviewed. GEN: Healthy appearing, well-developed, NAD. PSYCH: AOx3. Normal memory, mood, and affect. HEENT -Eyes: -No discharge or redness; -Ears: -Mouth and throat: Moist mucous membranes. No tonsillar erythema or exudate noted NECK: CV: Regular rate and rhythm LUNGS: Normal respiratory effort. Lungs clear bilaterally. SKIN: Warm, well perfused. No skin rashes or abnormal lesions noted. MSK: Normal gait. NEURO: Ambulating with no limitations. Normal muscle strength and tone. No focal deficits. Results Office Rapid Strep A Office Rapid Strep A Negative Last Edit by Marcie Campo on 10/05/24 08:47 Coding Level of Care Code Off vis,est,level 3 Diagnoses Sore throat J02.9 Assessment and Plan Assessment and Plan (1) Sore throat: Status: Resolved Orders: Orders POC Rapid Strep A Today J02.9 - Acute pharyngitis, unspecified Medications: New prednisone 50 mg PO QDAY 5 tabs 0RF Plan - suspect viral - Strep negative in the office today - Discussed supportive care treatment with fluids, rest and analgesia. - The patient may also use OTC cough and cold meds as needed and warm salt water gargles, throat lozenges and/or OTC throat spray as needed. 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 Rhina Kulkarni MD Status: REG CLI Study: Pelvic w/ Transvaginal Date of Exam: 08/30/24 Exam# [id number] Ordering Dr: Cheryle Meza PROCEDURE: PELVIC W/ TRANSVAGINAL 08/30/2024 REASON FOR EXAM: ABNORMAL UTERINE BLEEDING TECHNIQUE: PELVIC W/ TRANSVAGINAL with grayscale and color Doppler COMPARISON: Pelvic ultrasound on 08/21/2019 FINDINGS: Measurements: Uterus: 9.5 x 5.5 x 6.8 cm for volume of 187.1 mL Endometrial Thickness: 0.4 cm Right Ovary: 2.6 x 1.8 x 1.8 cm for volume of 4.6 mL Left Ovary: 2.4 x 1.2 x 1.6 cm for volume of 2.4 mL Uterus: Anteverted. Normal contour and myometrial echotexture. Nabothian cysts at the cervix. Endometrium: Normal echotexture. Right ovary: Normal size and echotexture. Left ovary: Normal size and echotexture. Other adnexal findings: None. Cul-de-sac: No free intraperitoneal fluid identified. Color Doppler: Normal color flow doppler signal at both ovaries. US/Pelvic w/ Transvaginal IMPRESSION: NORMAL TRANSABDOMINAL AND TRANSVAGINAL PELVIC ULTRASOUND WITH DOPPLER. Reading Location: [facility] CC: Dr. Rhina Kulkarni MD; Dr. Cheryle Meza MD Stunner: Signed Normal [facility] Anticardiolipin IgG, IgMon 0 08-26-2024 ANTICARDIO IgG < 9 Normal 0-14 [facility] Comment on above: Result Comment: Nega tive: <15 Indeterminate: 15 - 20 Low-Med Positive: >20 - 80 High Positive: >80 Performed By: #### L 3410.1999, L4500.0100, L3100.8410 #### [facility] [address] [place], [address] Anticardio.IgM < 9 Normal 0-12 [facility] Comment on above: Result Comment: Nega tive: <13 Indeterminate: 13 - 20 Low-Med Positive: >20 - 80 High Positive: >80 Performed at: [facility] [address] [id number] [employer] Furn[employer] Operator Helper: Blue Araya MD, Phone: [phone] Performed at: [facility] [address] [id number] [employer] Operator Helper: Charles Daigle PhD, Phone: [phone] Performed By: #### L 3410.1999, L4500.0100, L3100.8410 #### [facility] [address] [place], [address] Beta-2 Glycoprot IgG, A, 08-26-2024 B2 GLYCO I IGA <9 Normal 0-25 [facility] Comment on above: Result Comment: Resu lt Units: GPI IgA units The reference interval reflects a 3SD or 99th percentile interval, which is thought to represent a potentially clinically significant result in accordance with the International Consensus Statement on the classification criteria for definitive antiphospholipid syndrome (APS). J Thromb Haem 2006;4:295-306. Performed By: #### L 3410.1999, L4500.0100, L3100.8410 #### [facility] [address] [place], [address] B2 GLYCO I IGG <9 Normal 0-20 [facility] Comment on above: Result Comment: Resu lt Units: GPI IgG units The reference interval reflects a 3SD or 99th percentile interval, which is thought to represent a potentially clinically significant result in accordance with the International Consensus Statement on the classification criteria for definitive antiphospholipid syndrome (APS). J Thromb Haem 2006;4:295-306. Performed By: #### L , L4500.0100, L3100.8410 #### [facility] [address] [place], [address] B2 GLYCO I IGM <9 Normal 0-32 [facility] Comment on above: Result Comment: Resu lt Units: GPI IgM units The reference interval reflects a 3SD or 99th percentile interval, which is thought to represent a potentially clinically significant result in accordance with the International Consensus Statement on the classification criteria for definitive antiphospholipid syndrome (APS). J Thromb Haem 2006;4:295-306. Performed By: #### L , L4500.0100, L3100.8410 #### [facility] [address] [place], [address] Lupus Anticoagulant Compon 0 6- aPTT Coag (Bld) [Time] 29.7 s Normal 0.0-43.5 [facility] Comment on above: Performed By: #### L , L4500.0100, L3100.8410 #### [facility] [address] [place], [address] DILUTE PT (dPT) 38.4 sec Normal 0.0-47.6 [facility] Comment on above: Performed By: #### L 3410.1999, L4500.0100, L3100.8410 #### [facility] [address] [place], [address] dPT Conf. Ratio 1.09 Ratio Normal 0.00-1.34 [facility] Comment on above: Performed By: #### L 3410.1999, L4500.0100, L3100.8410 #### [facility] [address] [place], [address] DRVVT 46.9 sec Normal 0.0-47.0 [facility] Comment on above: Performed By: #### L 3410.1999, L4500.0100, L3100.8410 #### [facility] [address] [place], [address] Interpretation Comment: Normal . [facility] Comment on above: Result Comment: No l upus anticoagulant was detected. Performed By: #### L 3410.1999, L4500.0100, L3100.8410 #### [facility] [address] [place], [address] THROMBIN TIME 18.2 sec Normal 0.0-23.0 [facility] Comment on above: Performed By: #### L 3410, L4500.0100, L3100.8410 #### [facility] [address] [place], [address] Absolute lymphocyte countOrd ered By: Cheryle Meza on 08-24-2024 Lymphocytes Auto (Unsp spec) [#/Vol] 2.69 10*3/uL 0.83-4.51 [facility] Absolute neutrophil countOrd ered By: Cheryle Meza on 08-24-2024 Neutrophils (Bld) [#/Vol] 3.6 10*3/uL 2.0-7.7 [facility] Automated lymphocyte count a s percentage of total leukocytesOrdered By: Cheryle Meza on 08-24-2024 Lymphocytes/100 WBC Auto (Unsp spec) 38.1 % 19-41 [facility] Basophil percentageOrdered B y: Cheryle Meza on 08-24-2024 Basophils/100 WBC (Bld) 0.3 % 0-1 [facility] CBC W/Diff, Farooqon 08-07 Absolute Lymph 2.69 X10 3/uL Normal 0.83-4.51 [facility] Comment on above: Performed By: #### L 100.0100, L501.9520 #### [facility] [address] [place], [address] Absolute Neut 3.6 X10 3/uL Normal 2.0-7.7 [facility] Comment on above: Performed By: #### L 100.0100, L501.9520 #### [facility] [address] [place], [address] Basophils/100 WBC (Bld) 0.3 % Normal 0-1 [facility] Comment on above: Performed By: #### L 100.0100, L501.9520 #### [facility] [address] [place], [address] Eosinophils/100 WBC (Bld) 2.4 % Normal 0-5 [facility] Comment on above: Performed By: #### L 100.0100, L501.9520 #### [facility] [address] [place], [address] Erythrocyte distribution width (RBC) [Ratio] 16.7 % High 11.6-14.6 [facility] Comment on above: Performed By: #### L 100.0100, L501.9520 #### [facility] [address] [place], [address] Hematocrit (Bld) [Volume fraction] 35.0 % Low 37-47 [facility] Comment on above: Performed By: #### L 100.0100, L501.9520 #### [facility] [address] [place], [address] Hemoglobin (Bld) [Mass/Vol] 10.8 g/dL Low 12.0-15.0 [facility] Comment on above: Performed By: #### L 100.0100, L501.9520 #### [facility] [address] [place], [address] IG% 0.300 Normal 0.0-0.9 [facility] Comment on above: Result Comment: IG% - Immature Granulocytes (promyelocytes, myelocytes and metamyelocytes) > 1% indicates that a LEFT SHIFT is Present. Performed By: #### L 100.0100, L501.9520 #### [facility] [address] [place], [address] Lymphocytes/100 WBC (Bld) 38.1 % Normal 19-41 [facility] Comment on above: Performed By: #### L 100.0100, L501.9520 #### [facility] [address] [place], [address] MCH (RBC) [Entitic mass] 22.8 pg Low 27.0-32.0 [facility] Comment on above: Performed By: #### L 100.0100, L501.9520 #### [facility] [address] [place], [address] MCHC (RBC) [Mass/Vol] 30.9 g/dL Low 32-36 [facility] Comment on above: Performed By: #### L 100.0100, L501.9520 #### [facility] [address] [place], [address] MCV (RBC) [Entitic vol] 73.8 fL Low 81-99 [facility] Comment on above: Performed By: #### L 100.0100, L501.9520 #### [facility] [address] [place], [address] Monocytes/100 WBC (Bld) 7.9 % Normal 0-10 [facility] Comment on above: Performed By: #### L 100.0100, L5.20 #### [facility] [address] [place], [address] Neutrophils/100 WBC (Bld) 51.0 % Normal 47-70 [facility] Comment on above: Performed By: #### L 100.0100, L5.20 #### [facility] [address] [place], [address] Nucleated RBC (Bld) [#/Vol] 0 10*3/uL Normal 0-5 [facility] Comment on above: Performed By: #### L 100.0100, L5.20 #### [facility] [address] [place], [address] Platelet mean volume (Bld) [Entitic vol] 9.9 fL Normal 6.2-12.0 [facility] Comment on above: Performed By: #### L 100.0100, L5.20 #### [facility] [address] [place], [address] Platelets (Bld) [#/Vol] 274 10*3/uL Normal 150-450 [facility] Comment on above: Performed By: #### L 100.0100, L5.20 #### [facility] [address] [place], [address] RBC (Bld) [#/Vol] 4.74 10*6/uL Normal 4.2-5.4 [facility] Comment on above: Performed By: #### L 100.0100, L5.20 #### [facility] [address] [place], [address] RDW SD 44.2 fl High 35.1-43.9 [facility] Comment on above: Performed By: #### L 100.0100, L5.9520 #### [facility] [address] [place], [place], [address] WBC (Bld) [#/Vol] 7.1 10*3/uL Normal 4.4-11.0 [facility] Comment on above: Performed By: #### L 100.0100, L501.9520 #### [facility] [address] [place], [address] Dilute Deangelo's viper venom timeOrdered By: Cheryle Meza on 08-24-2024 dRVVT Coag (PPP) [Time] 46.9 s 0.0-47.0 [facility] Eosinophil percentageOrdered By: Cheryle Meza on 08-24-2024 Eosinophils/100 WBC (Bld) 2.4 % 0-5 [facility] Erythrocyte distribution wid th ratioOrdered By: Cheryle Meza on 08-24-2024 Erythrocyte distribution width (RBC) [Ratio] 16.7 % High 11.6-14.6 [facility] Erythrocyte distribution wid th standard deviationOrdered By: Cheryle Meza on 08-24-2024 Erythrocyte distribution width (RBC) [Ratio] 44.2 fl High 35.1-43.9 [facility] Hematocrit Auto (Bld) [Volum e fraction]Ordered By: Cheryle Meza on 08-24-2024 Hematocrit (Bld) [Volume fraction] 35.0 % Low 37-47 [facility] Hemoglobin measurementOrdere d By: Cheryle Meza on 08-24-2024 Hemoglobin (Bld) [Mass/Vol] 10.8 g/dL Low 12.0-15.0 [facility] Immature granulocytes/100 WB C Auto (Bld)Ordered By: Cheryle Meza on 08-24-2024 Immature granulocytes/100 WBC (Bld) 0.300 % 0.0-0.9 [facility] Comment on above: IG% - Immature Granu locytes (promyelocytes, myelocytes and metamyelocytes) > 1% indicates that a LEFT SHIFT is Present. MCV (mean corpuscular volume ) determinationOrdered By: Cheryle Meza on 08-24-2024 MCV (RBC) [Entitic vol] 73.8 fL Low 81-99 [facility] Mean corpuscular hemoglobin (MCH) determinationOrdered By: Cheryle Meza on 08-24-2024 MCH (RBC) [Entitic mass] 22.8 pg Low 27.0-32.0 [facility] Mean corpuscular hemoglobin concentration (MCHC) determinationOrdered By: Cheryle Meza on 08-24-2024 MCHC (RBC) [Mass/Vol] 30.9 g/dL Low 32-36 [facility] Mean platelet volume determi nationOrdered By: Cheryle Meza on 08-24-2024 Platelet mean volume (Bld) [Entitic vol] 9.9 fL 6.2-12.0 [facility] Monocyte percentageOrdered B y: Cheryle Meza on 08-24-2024 Monocytes/100 WBC (Bld) 7.9 % 0-10 [facility] Neutrophil percentageOrdered By: Cheryle Meza on 08-24-2024 Neutrophils/100 WBC (Bld) 51.0 % 47-70 [facility] Nucleated red blood cell per centageOrdered By: Cheryle Meza on 08-24-2024 Nucleated RBC/100 WBC (Bld) [Ratio] 0 % 0-5 [facility] 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 [address], [address] [place] [address] OFFICE VISIT Date of Service: 08/24/24 MR#: [id number] Acct: [id number] Name: JANETTE CAMPO AUGUST Rep #: [id number] : 1995 Provider: Dr. 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: No Is patient in pain?: Yes (contraction like pain) Allergies No Known Allergies Allergy (Verified 08/24/24 11:13) Medications ???Medication ???Instructions ???Recorded ???Confirmed ???Type cetirizine 10 mg capsule (Zyrtec) 10 mg PO DAILY PRN allergy sympto ms 06/16/22 08/24/24 History albuterol sulfate 90 mcg/actuation 1 - 2 puff inhalation Q6H PRN 08/24/24 Rx aerosol inhaler (ProAir HFA) shortness of breath or wheezing #8.5 grams azelastine 0.05 % eye drops 1 drp ophthalmic (eye) BID #6 mL 0 08/04/23 08/24/24 Rx tranexamic acid 650 mg tablet 1,300 mg (2 x 650 mg) PO TID #60 0 10/21/23 08/24/24 Rx tabs norethindrone acetate 5 mg tablet 5 mg PO .COMPLEX #30 tabs 5 08/24/24 Rx Is last menstrual period known: Yes Last Menstrual Period: 07/17/24 Post menopausal: No Patient : No : No [facility] Medical History Irritable bowel syndrome with diarrhea Low iron Gastric reflux Hypertension GI bleeding Infection of obstetric surgical wound, superficial incisional site delivery delivered heart deceleration Non-smoker Oral herpes Asthma Depression Anemia Surgical History Encounter for removal of skin lesion History of placement of ear tubes H/O myringotomy History of tonsillectomy History of esophagogastroduodenoscopy (EGD) H/O colonoscopy H/O toe surgery History of cholecystectomy delivery delivered Family History Father Epilepsy Migraines Mother Arthritis Anxiety Sister Anxiety Social History (Updated 08/24/24 @ 11:16 by Xenia Hines) household members: family housing: house number of children: 2 current occupational status: unemployed Smoking Status: Never smoker Electronic Cigarette Use: not used second hand exposure: No alcohol intake: never substance use type: does not use caffeine: Yes what type of physical activity do you participate in: walking seatbelt use: always do you feel safe at home: Yes additional social history: - 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 she had positive tests at home and then started bleeding heavy and test is neagtive here. she has severe crmaping also that limits activity and is minimally relieved with pain meds. Female Reproductive History Last Menstrual Period: 07/17/24 History 2 Elective abortions Hx Para 2 Spontaneous abortions Hx # Term Pregnancies Ectopic pregnancies Hx # Pregnancies Multiple births # of living children 2 Past Pregnancies Del. Date Name GA/Weeks Outcome Route Bth Weight Gen Labor Lgth Anesthesia Del Locatn Provider FOB 09/04/17 Zahra 39 live - full term 7lbs 12oz Female epidural [facility] DM Jonah 01/09/21 Ulices 38 live - full term Male spinal [facility] D rJose De Jesus Case Delivery Date: 09/04/17 Last Updated by: Brooklyn Francis IoL d/t GHTN; AOD at 5cm; Category 2 FHR recurrent late decelerations, Meconium fluid ROS Const Constitutional: Denies fatigue, fever(s), headache(s), increased appetite, poor appetite, weight gain or weight loss GI GI: Reports as per HPI; Denies abdominal pain, constipation, nausea or vomiting : Reports as per HPI; Denies difficulty voiding, dysuria, hematuria, pelvic pain, urinary frequency, urinary incontinence, urinary hesitancy, urinary urgency, vaginal discharge, vaginal dryness, vaginal odor, vaginal pruritus or other Exam Const General: cooperative, healthy appearing, comfortable, no acute distress and well developed Orientation: alert [facility] Head: normal to inspection and normocephalic Ears: hearing grossly normal bilaterally and external ears normal Nose: external nose normal and nares normal Face and sinus: normal facial exam Neck Neck: normal visual inspection, no lymphadenopathy and trachea midline Thyroid: thyroid normal Resp Effort Inspection: normal respiratory effort Musc Other: gross (more content not included)... Normal [facility] Platelet countOrdered By: Miguel Angel Meza on 08-24-2024 Platelets (Bld) [#/Vol] 274 10*3/uL 150-450 [facility] RBC Auto (Bld) [#/Vol]Ordere d By: Cheryle Meza on 08-24-2024 RBC (Bld) [#/Vol] 4.74 10*6/uL 4.2-5.4 [facility] Serum beta 2 glycoprotein 1 IgA antibody detectionOrdered By: Cheryle Meza on 08-24-2024 Beta 2 glycoprotein 1 IgA Ql (S) <9 0-25 [facility] Comment on above: Result Units: GPI Ig A unitsThe reference interval reflects a 3SD or 99th percentileinterval, which is thought to represent a potentiallyclinically significant result in accordance with theInternational Consensus Statement on the classificationcriteria for definitive antiphospholipid syndrome (APS). JThromb Haem 2006;4:295-306. Serum beta 2 glycoprotein 1 IgG antibody detectionOrdered By: Cheryle Meza on 08-24-2024 Beta 2 glycoprotein 1 IgG Ql (S) <9 0-20 [facility] Comment on above: Result Units: GPI Ig G unitsThe reference interval reflects a 3SD or 99th percentileinterval, which is thought to represent a potentiallyclinically significant result in accordance with theInternational Consensus Statement on the classificationcriteria for definitive antiphospholipid syndrome (APS). JThromb Haem 2006;4:295-306. Serum beta 2 glycoprotein 1 IgM antibody detectionOrdered By: Cheryle Meza on 08-24-2024 Beta 2 glycoprotein 1 IgM Ql (S) <9 0-32 [facility] Comment on above: Result Units: GPI Ig M unitsThe reference interval reflects a 3SD or 99th percentileinterval, which is thought to represent a potentiallyclinically significant result in accordance with theInternational Consensus Statement on the classificationcriteria for definitive antiphospholipid syndrome (APS). JThromb Haem 2006;4:295-306. Serum cardiolipin IgG antibo dy assay by immunoassay (units/volume)Ordered By: Cheryle Meza on 08-24-2024 Cardiolipin IgG IA Qn (S) < 9 GPL U/mL 0-14 [facility] Comment on above: Negative: <15 Indete rminate: 15 - 20 Low-Med Positive: >20 - 80 High Positive: >80 TSH DL <= 0.005 mIU/L QnOrde red By: Cheryle Meza on 08-24-2024 TSH Qn 1.740 uIU/mL 0.300-4.20 0 [facility] Thrombin timeOrdered By: Shar manny Derrick on 08-24-2024 Thrombin time Coag (PPP) [Time] 18.2 sec 0.0-23.0 [facility] Thyroid Stim Hormone (TSH)on 08-24-2024 TSH 1.740 uIU/mL Normal 0.300-4.20 0 [facility] Comment on above: Performed By: #### L 100.0100, L501.9520 ####[facility] [address] [place], [place], [id number] White blood cell (WBC) count Ordered By: Cheryle Meza on 08-24-2024 WBC (Bld) [#/Vol] 7.1 10*3/uL 4.4-11.0 [facility] Ferritinon 08-22-2024 Ferritin [Mass/Vol] 10 ng/mL Low 22-378 [facility] Comment on above: Order Comment: BRODERICK MONGE LLED TO ADD TO PREVIOUS SPECIMEN. CALLED CABRERA Performed By: #### L 503.6030, L503.2750 ####[facility] [address] [place], [place], [id number] Iron measurement (mass/mass) Ordered By: Cheryle Meza on 08-22-2024 Iron (Unsp spec) [Mass/Mass] 17 ug/dL Low 50-170 [facility] Iron+Iron Binding Capacityon 08-22-2024 Iron [Mass/Vol] 17 ug/dL Low 50-170 [facility] Comment on above: Order Comment: BRODERICK MONGE LLED TO ADD TO PREVIOUS SPECIMEN. CALLED CABRERA Performed By: #### L 503.6030, L503.6550 ####[facility] [address] [place], [place], [id number] IRON SATURATION 5.0 Low 13-59 [facility] Comment on above: Order Comment: BRODERICK MONGE LLED TO ADD TO PREVIOUS SPECIMEN. CALLED CABRERA Performed By: #### L [id number], L503.6550 ####[facility] [address] [place], [address] TIBC 374 ug/dL Normal 250-450 [facility] Comment on above: Order Comment: RN SALEEM LLED TO ADD TO PREVIOUS SPECIMEN. CALLED CABRERA Performed By: #### L 503.6030, L503.6550 ####[facility] [address] [place], [address] UIBC 357 ug/dL Normal 228-428 [facility] Comment on above: Order Comment: BRODERICK MONGE LLED TO ADD TO PREVIOUS SPECIMEN. CALLED CABRERA Performed By: #### L 503.6030, L503.6550 ####[facility] [address] [place], [address] No Panel InformationOrdered By: Cheryle Meza on 08-22-2024 Unsaturated Iron Binding Capacity 357 ug/dL 228-428 [facility] Serum human chorionic gonado tropin detection for pregnancyOrdered By: Cheryle Meza on 08-22-2024 HCG ( test) Ql < 1 mIU/mL <9 [facility] Comment on above: Gestational Age0.2-1 Week: 5-50 mIU/mL1-2 Weeks: 50-500 mIU/mL2-3 Weeks: 100-5000 mIU/mL3-4 Weeks: 500-10,000 mIU/mL4-5 Weeks:1000-50,000 mIU/mL5-6 Weeks: 10,000-100,000 mIU/mL6-8 Weeks: 15,000-200,000 mIU/mL2-3 Months:10,000-100,000 mIU/mL Serum or plasma ferritin ulisses surement (mass/volume)Ordered By: Cheryle Meza on 08-22-2024 Ferritin [Mass/Vol] 10 ng/mL Low 22-378 [facility] Serum or plasma iron saturat ion measurement (mass fraction)Ordered By: Cheryle Meza on 08-22-2024 Iron saturation [Mass fraction] 5.0 % Low 13-59 [facility] hCG Titer Quant., Serumon HCG QUANT. < 1 Normal <9 non-preg [facility] Comment on above: Result Comment: Gest ational Age 0.2-1 Week: 5-50 mIU/mL 1-2 Weeks: 50-500 mIU/mL 2-3 Weeks: 100-5000 mIU/mL 3-4 Weeks: 500-10,000 mIU/mL 4-5 Weeks:1000-50,000 mIU/mL 5-6 Weeks: 10,000-100,000 mIU/mL 6-8 Weeks: 15,000-200,000 mIU/mL 2-3 Months:10,000-100,000 mIU/mL Performed By: #### L 700.8000 ####[facility] [address] [place], [place], [address] Urgent Care Visit Reporton 0 03-20-2024 Urgent Care Visit Report [facility] [address], [address] [place], [place] [address] OFFICE VISIT Date of Service: 03/20/24 MR#: [id number] Acct: [id number] Name: JANETTE CAMPO AUGUST Rep #: [id number] : 1995 Provider: KENDY castillo Age/Sex: 29/F [place] [facility] [place]: Signed Intake Vital Signs 12/29/23 11:46 03/20/24 12:28 Height 5 ft BP 122/60 H Blood Pressure Location Lt brachial Position Sitting Respiration 17 Pulse 73 Pulse Source NIBP Temp 98.3 F Temp Source Oral Pulse Oximetry (%) 98 Oxygen Delivery Method room air Intake Visit Reasons: CONCERN FOR BRONCHITIS Chief Complaint: chest heaviness/burning, cough, SOB 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 hx asthma--feels different. declines viral testing. [facility] Medical History Irritable bowel syndrome with diarrhea Low iron Gastric reflux Hypertension GI bleeding Infection of obstetric surgical wound, superficial incisional site delivery delivered heart deceleration Non-smoker Oral herpes Asthma Depression Anemia Surgical History Encounter for removal of skin lesion History of placement of ear tubes H/O myringotomy History of tonsillectomy History of esophagogastroduodenoscopy (EGD) H/O colonoscopy H/O toe surgery History of cholecystectomy delivery delivered Family History Father Epilepsy Migraines Mother Arthritis Anxiety Sister Anxiety Social History household members: family housing: house number of children: 1 current occupational status: unemployed Smoking Status: Never smoker Electronic Cigarette Use: not used second hand exposure: No alcohol intake: never substance use type: does not use caffeine: Yes what type of physical activity do you participate in: walking seatbelt use: always do you feel safe at home: Yes 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 She acknowledges a history of asthma and feels this to be different. She did not declines viral testing. ROS Const Constitutional: Positive for abnormal sleep pattern (felt underwater); No body ache, chills, fatigue, fever(s), headache(s) or change in appetite Eyes Eyes: Positive for irritation (itchy); No blurry vision, change in vision, double vision, discharge, vision loss, dry eyes, bulging eyes, floaters, visual disturbances, eye pain, Light sensitivity, spots in vision, tunnel vision or other ENT ENT: Positive for ear or mastoid pain (itching- right); No ear discharge, ear pressure, tinnitus, dizziness/vertigo, nosebleed/epistaxis, nasal congestion, nose pain, sinus pressure, sinus pain, nasal discharge, post nasal drip, headache(s), facial pain, dental pain, difficulty swallowing, bad breath, hoarseness, lip swelling, mouth lesions, mouth pain, neck pain, sore throat, tongue swelling or throat swelling Resp Respiratory: Positive for cough Cough: Yes productive, change in phlegm color (white, yellow) and shortness of breath; No chest congestion, hemoptysis, pain on inspiration, pain with cough, stridor or wheezing Cardio Cardiology: Positive for chest pain at rest; No chest pain with exertion, shortness of breath, dyspnea on exertion or lightheadedness Gastro GI: No abdominal pain, change in bowel habits, constipation, diarrhea, difficulty swallowing, nausea/dyspepsia or vomiting Genitourinary-Female: No burning urination or urinary frequency Musc Musculoskeletal: No joint pain or neck pain Skin Skin: No rash Neuro Neurology: No headache(s) or visual disturbances Psych Psychiatric: Positive for abnormal sleep pattern (felt underwater) and No change in appetite Endo Endocrine: No fatigue Aller/Imm Allergy/Immunologic: No lip swelling, throat swelling, tongue swelling or wheezing Exam Const General: cooperative, healthy appearing, comfortable and no acute distress Orientation: alert, awake and oriented x3 HENMT Head: normal to inspection and normocephalic Ears: hearing grossly normal bilaterally, external ears normal and TM's normal bilaterally Nose: external nose normal, nares nor (more content not included)... Normal [facility] Emergency Department Summary on 12-29-2023 Emergency Department Summary [facility] Medical Records Department [address] [place] [address] Emergency Department Summary 12/29/23 MR#: [id number] Acct: [id number] Name: JANETTE CAMPO AUGUST Rep #: [id number] : 1995 28 From: Sriram Segal DO PCP: Dr. Rhina Kulkarni MD Status:DEP ER Location: ED HPI History of Present Illness Chief Complaint: Headache Informant: patient Onset/Context/Timing Onset: Today Context: Sudden Timing: Continuous Quality -Headache: Positive for Similar Prior Headaches and Sharp Location: Diffuse Worsened by: Nothing Relieved by: Nothing Associated Symptoms/Injury Associated Symptoms: Positive for Nausea, Vomiting, Sinus Pressure, Visual Changes, Blurred Vision and Photophobia; Negative for Fever, Sore Throat, Numbness, Tingling, Preceding Aura or Visual Loss Injury - CLEMENTS: Negative for Direct Trauma Narrative Narrative: Patient presents with a headache that began today. Patient states she woke up with her headache. Patient states it has been constant throughout the day. Patient states it is similar to previous headaches. Patient describes it as sharp. Patient states it is diffuse across her entire head. Patient states nothing makes it better nothing makes it worse. The patient does admit to some photophobia and blurry vision. Patient also admits to some nausea and vomiting. Patient also admits to some sinus pressure. Patient denies any paresthesias or weakness. Patient denies any trauma or injury. [facility] Medical History Irritable bowel syndrome with diarrhea Low iron Gastric reflux Hypertension GI bleeding Infection of obstetric surgical wound, superficial incisional site delivery delivered heart deceleration Non-smoker Oral herpes Asthma Depression Anemia Home Medications ???Medication ???Instructions ???Recorded ???Last Taken ???Type cetirizine 10 mg capsule (Zyrtec) 10 mg PO DAILY PRN allergy symptoms 06/16/22 Unknown History albuterol sulfate 90 mcg/actuation 1 - 2 puff inhalation Q6H PRN 01/13/23 Unknown Rx aerosol inhaler (ProAir HFA) shortness of breath or wheezing #8.5 grams budesonide-formoterol HFA 160 2 puff inhalation BID #10.2 grams 01/13/23 Unknown Rx mcg-4.5 mcg/actuation aerosol inhaler (Symbicort) sumatriptan succinate 25 mg tablet See Rx Instructions PO .COMPLEX 04/20/23 Unknown Rx (Imitrex) #10 tabs azelastine 0.05 % eye drops 1 drp ophthalmic (eye) BID #6 mL 08/04/23 Unknown Rx tranexamic acid 650 mg tablet 1,300 mg (2 x 650 mg) PO TID #60 10/21/23 Unknown Rx tabs Allergy/AdvReac Type Severity Reaction Status Date / Time No Known Allergies Allergy Verified 12/29/23 11:47 Family History Father Epilepsy Migraines Mother Arthritis Anxiety Sister Anxiety Surgical History Encounter for removal of skin lesion History of placement of ear tubes H/O myringotomy History of tonsillectomy History of esophagogastroduodenoscopy (EGD) H/O colonoscopy H/O toe surgery History of cholecystectomy delivery delivered Social History household members: family housing: house number of children: 1 current occupational status: unemployed Smoking Status: Never smoker Electronic Cigarette Use: not used second hand exposure: No alcohol intake: never substance use type: does not use caffeine: Yes what type of physical activity do you participate in: walking seatbelt use: always do you feel safe at home: Yes additional social history: - Jonah [employer] ROS ROS ED Constitutional Constitutional ED: Denies chills or fever(s) Eyes Eyes: Reports blurry vision; Denies diplopia ENT ENT ED: Denies rhinorrhea or sore throat Cardiovascular Cardiovascular: Denies chest pain or palpitations Respiratory/Chest Respiratory/Chest: Denies cough or dyspnea Gastrointestinal Gastrointestinal: Reports nausea and vomiting Genitourinary Genitourinary ED: Denies dysuria or hematuria Musculoskeletal Musculoskeletal: Denies back pain or neck pain Integumentary Denies abscess or rash Neurologic Neurologic: Reports headache(s); Denies weakness Allergic/Immunologic Allergic/Immunologic ED: Denies mouth swelling or urticaria EXAM Physical Exam Const Vital Signs: 12/29/23 11:46 Temperature 97.2 F L Temperature Source Temporal Pulse Rate 92 Respiratory Rate 14 Blood Pressure 144/99 H Blood Pressure Mean 114 Pulse Ox 100 Oxygen Delivery Method Room Air Positive well nourished and well developed General Appearance ED: well developed and NAD HEENT Reports normocephalic and (more content not included)... Normal [facility] Laboratory - Microbiology an d Antimicrobial susceptibilityon 05-22-2023 S. pyogenes Ag IA Ql (Unsp spec) Negative [facility] No Panel Informationon 05-21 Influenza Types A,B Rapid (Clinic) Pos FLU B&Neg FLU A [facility] Absolute lymphocyte countOrd ered By: Rhina Kulkarni on 03-18-2023 Lymphocytes Auto (Unsp spec) [#/Vol] 2.22 10*3/uL 0.83-4.51 [facility] Basophil percentageOrdered B y: Rhina Kulkarni on 03-18-2023 Basophils/100 WBC (Bld) 0.5 % 0-1 [facility] Eosinophils/100 WBC (Bld) 2.2 % 0-5 [facility] Neutrophils (Bld) [#/Vol] 3.0 10*3/uL 2.0-7.7 [facility] Neutrophils/100 WBC (Bld) 51.0 % 47-70 [facility] WBC (Bld) [#/Vol] 5.9 10*3/uL 4.4-11.0 [facility] Blood erythrocytes count (nu mber/volume)Ordered By: Rhina Kulkarni on 03-18-2023 RBC (Bld) [#/Vol] 4.56 10*6/uL 4.2-5.4 [facility] Blood hemoglobin measurement (mass/volume)Ordered By: Rhina Kulkarni on 03-18-2023 Hemoglobin (Bld) [Mass/Vol] 8.9 g/dL 12.0-15.0 [facility] Blood lymphocytes/100 leukoc ytesOrdered By: Rhina Kulkarni on 03-18-2023 Lymphocytes/100 WBC (Bld) 37.6 % 19-41 [facility] Blood monocytes/100 leukocyt esOrdered By: Rhina Kulkarni on 03-18-2023 Monocytes/100 WBC (Bld) 8.5 % 0-10 [facility] Blood platelet mean volumeOr dered By: Rhina Kulkarni on 03-18-2023 Platelet mean volume (Bld) [Entitic vol] 10.3 fL 6.2-12.0 [facility] Determination of erythrocyte mean corpuscular volume (MCV)Ordered By: Rhina Kulkarni on 03-18-2023 MCV (RBC) [Entitic vol] 69.1 fL 81-99 [facility] Hematocrit Auto (Bld) [Volum e fraction]Ordered By: Rhina Kulkarni on 03-18-2023 Hematocrit (Bld) [Volume fraction] 31.5 % 37-47 [facility] Iron measurement (mass/mass) Ordered By: Rhina Kulkarni on 03-18-2023 Iron (Unsp spec) [Mass/Mass] 16 ug/dL 50-170 [facility] Laboratory - Hematology and Cell countsOrdered By: Rhina Kulkarni on 03-18-2023 Erythrocyte distribution width (RBC) [Entitic vol] 45.0 fL 35.1-43.9 [facility] Erythrocyte distribution width (RBC) [Ratio] 18.6 % 11.6-14.6 [facility] Immature granulocytes/100 WBC (Bld) 0.200 % 0.0-0.9 [facility] Comment on above: IG% - Immature Granu locytes (promyelocytes, myelocytes and metamyelocytes) > 1% indicates that a LEFT SHIFT is Present. MCH (RBC) [Entitic mass] 19.5 pg 27.0-32.0 [facility] Nucleated RBC/100 WBC (Bld) [Ratio] 0 % 0-5 [facility] MCHC Auto (RBC) [Mass/Vol]Or dered By: Rhina Kulkarni on 03-18-2023 MCHC (RBC) [Mass/Vol] 28.3 g/dL 32-36 [facility] No Panel InformationOrdered By: Rhina Kulkarni on 03-18-2023 Total Iron Binding Capacity 392 ug/dL 250-450 [facility] Platelets bldOrdered By: Burton Kulkarni on 03-18-2023 Platelets (Bld) [#/Vol] 293 10*3/uL 150-450 [facility] Serum or plasma ferritin ulisses surement (mass/volume)Ordered By: Rhina Kulkarni on 03-18-2023 Ferritin [Mass/Vol] 4 ng/mL 8-252 [facility] Serum or plasma iron saturat ion measurement (mass fraction)Ordered By: Rhina Kulkarni on 03-18-2023 Iron saturation [Mass fraction] 4.1 % 15.0-55.0 [facility] Absolute lymphocyte countOrd ered By: Rhina Kulkarni on 01-22-2023 Lymphocytes Auto (Unsp spec) [#/Vol] 2.42 10*3/uL 0.83-4.51 [facility] Basophil percentageOrdered B y: Rhina Kulkarni on 01-22-2023 Basophils/100 WBC (Bld) 0.6 % 0-1 [facility] Bilirubin [Mass/Vol] 0.40 mg/dL 0.20-1.00 [facility] Comment on above: For patients on eltr ombopag therapy, use of Dimension Gardner TBIL is not recommended. Chloride [Moles/Vol] 109 mmol/L 98-107 [facility] Cholesterol [Mass/Vol] 134 mg/dL <200 [facility] Comment on above: <200 mg/dL Desirable 200-240 mg/dL Borderline >240 mg/dL High Risk Eosinophils/100 WBC (Bld) 2.1 % 0-5 [facility] Glucose [Mass/Vol] 100 mg/dL 74-106 [facility] Comment on above: Fasting Glucose resu lt from 100 to 125 mg/dL suggests IMPAIRED HOMEOSTASIS per A.D.A. criteria. Neutrophils (Bld) [#/Vol] 3.6 10*3/uL 2.0-7.7 [facility] Neutrophils/100 WBC (Bld) 52.8 % 47-70 [facility] Potassium [Moles/Vol] 3.9 mmol/L 3.5-5.1 [facility] Protein [Mass/Vol] 7.4 g/dL 6.4-8.2 [facility] Sodium [Moles/Vol] 141 mmol/L 136-145 [facility] Triglyceride [Mass/Vol] 80 mg/dL <199 [facility] Comment on above: The drugs N-Acetylcy steine and Metamizole may falsely depress this assay.Serum Triglycerides Reference Interval Normal <150 mg/dL Borderline high 150 - 199 mg/dL High 200 - 499 mg/dL Very High > or = 500 mg/dL WBC (Bld) [#/Vol] 6.7 10*3/uL 4.4-11.0 [facility] Blood erythrocytes count (nu mber/volume)Ordered By: Rhina Kulkarni on 01-22-2023 RBC (Bld) [#/Vol] 4.54 10*6/uL 4.2-5.4 [facility] Blood hemoglobin measurement (mass/volume)Ordered By: Rhina Kulkarni on 01-22-2023 Hemoglobin (Bld) [Mass/Vol] 9.1 g/dL 12.0-15.0 [facility] Blood lymphocytes/100 leukoc ytesOrdered By: Rhina Kulkarni on 01-22-2023 Lymphocytes/100 WBC (Bld) 35.9 % 19-41 [facility] Blood monocytes/100 leukocyt esOrdered By: Rhina Kulkarni on 01-22-2023 Monocytes/100 WBC (Bld) 8.5 % 0-10 [facility] Blood platelet mean volumeOr dered By: Rhina Kulkarni on 01-22-2023 Platelet mean volume (Bld) [Entitic vol] 10.1 fL 6.2-12.0 [facility] Determination of erythrocyte mean corpuscular volume (MCV)Ordered By: Rhina Kulkarni on 01-22-2023 MCV (RBC) [Entitic vol] 70.7 fL 81-99 [facility] Hematocrit Auto (Bld) [Volum e fraction]Ordered By: Rhina Kulkarni on 01-22-2023 Hematocrit (Bld) [Volume fraction] 32.1 % 37-47 [facility] Iron measurement (mass/mass) Ordered By: Rhina Kulkarni on 01-22-2023 Iron (Unsp spec) [Mass/Mass] 23 ug/dL 50-170 [facility] Laboratory - Chemistry and C hemistry - challengeOrdered By: Rhina Kulkarni on 01-22-2023 ALP [Catalytic activity/Vol] 91 U/L 45-117 [facility] ALT [Catalytic activity/Vol] 22 U/L 13-56 [facility] CO2 [Moles/Vol] 28.0 mmol/L 21.0-32.0 [facility] Globulin (S) [Mass/Vol] 4.0 g/dL 2.2-4.2 [facility] Urea nitrogen/Creatinine [Mass ratio] 16.5 mg/mg 10-20 [facility] Laboratory - Hematology and Cell countsOrdered By: Rhina Kulkarni on 01-22-2023 Erythrocyte distribution width (RBC) [Entitic vol] 47.0 fL 35.1-43.9 [facility] Erythrocyte distribution width (RBC) [Ratio] 18.7 % 11.6-14.6 [facility] Immature granulocytes/100 WBC (Bld) 0.100 % 0.0-0.9 [facility] Comment on above: IG% - Immature Granu locytes (promyelocytes, myelocytes and metamyelocytes) > 1% indicates that a LEFT SHIFT is Present. MCH (RBC) [Entitic mass] 20.0 pg 27.0-32.0 [facility] Nucleated RBC/100 WBC (Bld) [Ratio] 0 % 0-5 [facility] MCHC Auto (RBC) [Mass/Vol]Or dered By: Rhina Kulkarni on 01-22-2023 MCHC (RBC) [Mass/Vol] 28.3 g/dL 32-36 [facility] No Panel InformationOrdered By: Rhina Kulkarni on 01-22-2023 Estimated GFR (MDRD) Amer 111 mL/min >60 [facility] Comment on above: GFR Calc Estimated GFR (MDRD) Non-Af Amer 92 mL/min >60 [facility] Comment on above: Non- GFR Calc Total Iron Binding Capacity 420 ug/dL 250-450 [facility] Vitamin D 25-Hydroxy 35.2 ng/mL [facility] Comment on above: Vitamin D 25(OH) Sta tus Range Deficiency <20 ng/mL (50nmol/L) Insufficiency 20 - 30 ng/mL (50 - 75 nmol/L) Sufficiency 30 - 100 ng/mL (75 - 250 nmol/L) Toxicity >100 ng/mL (>250 nmol/L) Platelets bldOrdered By: Burton Kulkarni on 01-22-2023 Platelets (Bld) [#/Vol] 302 10*3/uL 150-450 [facility] Serum or plasma albumin morales urement (mass/volume)Ordered By: Rhina Kulkarni on 01-22-2023 Albumin [Mass/Vol] 3.4 g/dL 3.2-5.0 [facility] Serum or plasma albumin/glob ulin mass ratioOrdered By: Rhina Kulkarni on 01-22-2023 Albumin/Globulin [Mass ratio] 0.8 {ratio} 0.9-2.4 [facility] Serum or plasma calcium morales urement (mass/volume)Ordered By: Rhina Kulkarni on 01-22-2023 Calcium [Mass/Vol] 8.5 mg/dL 8.5-10.1 [facility] Serum or plasma cholesterol in HDL measurement (mass/volume)Ordered By: Rhina Kulkarni on 01-22-2023 Cholesterol in HDL [Mass/Vol] 61 mg/dL >40 [facility] Comment on above: The drugs N-Acetylcy steine and Metamizole may falsely depress this assay. Reference Range HDL <40 mg/dL Low HDL Cholesterol HDL >or= 60 mg/dL High HDL Cholesterol Serum or plasma cholesterol in VLDL measurement (mass/volume)Ordered By: Rhina Kulkarni on 01-22-2023 Cholesterol in VLDL [Mass/Vol] 16 mg/dL 5-40 [facility] Serum or plasma creatinine m easurement (mass/volume)Ordered By: Rhina Kulkarni on 01-22-2023 Creatinine [Mass/Vol] 0.79 mg/dL 0.55-1.02 [facility] Comment on above: The validity of the calculated GFR & GFRAA in patients over 70 years has not been determined. Clinical correlation is essential. Serum or plasma ferritin ulisses surement (mass/volume)Ordered By: Rhina Kulkarni on 01-22-2023 Ferritin [Mass/Vol] 5 ng/mL 8-252 [facility] Serum or plasma iron saturat ion measurement (mass fraction)Ordered By: Rhina Kulkarni on 01-22-2023 Iron saturation [Mass fraction] 5.5 % 15.0-55.0 [facility] Serum or plasma low density lipoprotein (LDL) cholesterol measurement (mass/volume)Ordered By: Rhina Kulkarni on 01-22-2023 Cholesterol in LDL [Mass/Vol] 57 mg/dL 0-130 [facility] Serum or plasma urea nitroge n measurement (mass/volume)Ordered By: Rhina Kulkarni on 01-22-2023 Urea nitrogen [Mass/Vol] 13 mg/dL 7-18 [facility] Thin prep Papanicolaou smear with manual screeningOrdered By: Rhina Kulkarni on 01-22-2023 Thin prep Papanicolaou smear with manual screening 13 U/L 15-37 [facility] Thin prep Papanicolaou smear with manual screening 4 5-15 [facility] Absolute lymphocyte counton 01-14-2022 Lymphocytes Auto (Unsp spec) [#/Vol] 2.34 10*3/uL 0.83-4.51 [facility] Work Phone: Atypical perinuclear antineu trophil cytoplasmic antibodies measurementon 01-14-2022 Neutrophil cytoplasmic Ab.perinuclear.atypica l IF (S) [Titer] <1:20 titer Neg:<1:20 [facility] Work Phone: Comment on above: The atypical pANCA p attern has been observed in asignificant percentage of patients with ulcerative colitis,primary sclerosing cholangitis and autoimmune hepatitis. Basophil percentageon 2021 Basophils/100 WBC (Bld) 0.3 % 0-1 [facility] Work Phone: Eosinophils/100 WBC (Bld) 1.2 % 0-5 [facility] Work Phone: Neutrophils (Bld) [#/Vol] 3.6 10*3/uL 2.0-7.7 [facility] Work Phone: Neutrophils/100 WBC (Bld) 54.2 % 47-70 [facility] Work Phone: WBC (Bld) [#/Vol] 6.6 10*3/uL 4.4-11.0 [facility] Work Phone: Blood erythrocytes count (nu mber/volume)on 01-14-2022 RBC (Bld) [#/Vol] 4.70 10*6/uL 4.2-5.4 [facility] Work Phone: Blood hemoglobin measurement (mass/volume)on 01-14-2022 Hemoglobin (Bld) [Mass/Vol] 11.4 g/dL 12.0-15.0 [facility] Work Phone: Blood lymphocytes/100 leukoc yteson 01-14-2022 Lymphocytes/100 WBC (Bld) 35.5 % 19-41 [facility] Work Phone: Blood monocytes/100 leukocyt eson 01-14-2022 Monocytes/100 WBC (Bld) 8.6 % 0-10 [facility] Work Phone: Blood platelet mean volumeon 01-14-2022 Platelet mean volume (Bld) [Entitic vol] 10.3 fL 6.2-12.0 [facility] Work Phone: Determination of erythrocyte mean corpuscular volume (MCV)on 01-14-2022 MCV (RBC) [Entitic vol] 76.6 fL 81-99 [facility] Work Phone: Hematocrit Auto (Bld) [Volum e fraction]on 01-14-2022 Hematocrit (Bld) [Volume fraction] 36.0 % 37-47 [facility] Work Phone: Laboratory - Hematology and Cell countson 01-14-2022 Erythrocyte distribution width (RBC) [Entitic vol] 41.0 fL 35.1-43.9 [facility] Work Phone: Erythrocyte distribution width (RBC) [Ratio] 15.0 % 11.6-14.6 [facility] Work Phone: Immature granulocytes/100 WBC (Bld) 0.200 % 0.0-0.9 [facility] Work Phone: Comment on above: IG% - Immature Granu locytes (promyelocytes, myelocytes and metamyelocytes) > 1% indicates that a LEFT SHIFT is Present. MCH (RBC) [Entitic mass] 24.3 pg 27.0-32.0 [facility] Work Phone: Nucleated RBC/100 WBC (Bld) [Ratio] 0 % 0-5 [facility] Work Phone: MCHC Auto (RBC) [Mass/Vol]on 01-14-2022 MCHC (RBC) [Mass/Vol] 31.7 g/dL 32-36 [facility] Work Phone: No Panel Informationon 01-14 Immunoglobulin E 56 IU/mL 6-495 [facility] Work Phone: Comment on above: Performed at: [address] [id number] Director: Charles Daigle PhD, Phone: [phone] at: [facility] - [facility] [address] [id number] Director: Blue Araya MD, Phone: [phone] Platelets bldon 01-14-2022 Platelets (Bld) [#/Vol] 267 10*3/uL 150-450 [facility] Work Phone: Serum Aspergillus flavus ant ibody detection by immunodiffusionon 01-14-2022 A. flavus Ab Immune diff Ql (S) Negative Neg:<1:1 [facility] Work Phone: Serum Aspergillus fumigatus antibody detection by immunodiffusionon 01-14-2022 A. fumigatus Ab Immune diff Ql (S) Negative Neg:<1:1 [facility] Work Phone: Serum Aspergillus niger anti body detection by immunodiffusionon 01-14-2022 A. niger Ab Immune diff Ql (S) Negative Neg:<1:1 [facility] Work Phone: [phone] Serum classic neutrophil cyt oplasmic antibody assay (units/volume)on 01-14-2022 Neutrophil cytoplasmic Ab.classic Qn (S) <1:20 titer Neg:<1:20 [facility] Work Phone: [phone] Serum perinuclear neutrophil cytoplasmic antibody titer by immunofluorescenceon 01-14-2022 Neutrophil cytoplasmic Ab.perinuclear IF (S) [Titer] <1:20 titer Neg:<1:20 [facility] Work Phone: Comment on above: The presence of posi tive fluorescence exhibiting P-ANCA orC-ANCA patterns alone is not specific for the diagnosis ofWegener's Granulomatosis (WG) or microscopic polyangiitis.Decisions about treatment should not be based solely onANCA IFA results. The [employer] ANCA Group Consensusrecommends follow up testing of positive sera with both MA-3 and MPO-ANCA enzyme immunoassays. As many as 5% serumsamples are positive only by EIA. Ref. AM J Clin [id number];111:507-513. Absolute lymphocyte counton 11-19-2021 Lymphocytes Auto (Unsp spec) [#/Vol] 3.74 10*3/uL 0.83-4.51 [facility] Work Phone: Basophil percentageon 2021 Basophils/100 WBC (Bld) 0.3 % 0-1 [facility] Work Phone: [phone] Bilirubin [Mass/Vol] 0.30 mg/dL 0.20-1.00 [facility] Work Phone: [phone] Comment on above: For patients on eltr ombopag therapy, use of Dimension Gardner TBIL is not recommended. Chloride [Moles/Vol] 106 mmol/L 98-107 [facility] Work Phone: Cholesterol [Mass/Vol] 167 mg/dL <200 [facility] Work Phone: [phone] Comment on above: <200 mg/dL Desirable 200-240 mg/dL Borderline >240 mg/dL High Risk Eosinophils/100 WBC (Bld) 1.8 % 0-5 [facility] Work Phone: Glucose [Mass/Vol] 93 mg/dL 74-106 [facility] Work Phone: Neutrophils (Bld) [#/Vol] 6.5 10*3/uL 2.0-7.7 [facility] Work Phone: Neutrophils/100 WBC (Bld) 57.3 % 47-70 [facility] Work Phone: Potassium [Moles/Vol] 4.0 mmol/L 3.5-5.1 [facility] Work Phone: Protein [Mass/Vol] 7.7 g/dL 6.4-8.2 [facility] Work Phone: Sodium [Moles/Vol] 138 mmol/L 136-145 [facility] Work Phone: Triglyceride [Mass/Vol] 243 mg/dL <199 [facility] Work Phone: [phone] Comment on above: The drugs N-Acetylcy steine and Metamizole may falsely depress this assay.Serum Triglycerides Reference Interval Normal <150 mg/dL Borderline high 150 - 199 mg/dL High 200 - 499 mg/dL Very High > or = 500 mg/dL WBC (Bld) [#/Vol] 11.3 10*3/uL 4.4-11.0 [facility] Work Phone: [phone] Blood erythrocytes count (nu mber/volume)on 11-19-2021 RBC (Bld) [#/Vol] 5.00 10*6/uL 4.2-5.4 [facility] Work Phone: Blood hemoglobin measurement (mass/volume)on 11-19-2021 Hemoglobin (Bld) [Mass/Vol] 12.5 g/dL 12.0-15.0 [facility] Work Phone: Blood lymphocytes/100 leukoc yteson 11-19-2021 Lymphocytes/100 WBC (Bld) 33.2 % 19-41 [facility] Work Phone: Blood monocytes/100 leukocyt eson 11-19-2021 Monocytes/100 WBC (Bld) 7.0 % 0-10 [facility] Work Phone: Blood platelet mean volumeon 11-19-2021 Platelet mean volume (Bld) [Entitic vol] 10.4 fL 6.2-12.0 [facility] Work Phone: [phone] Determination of erythrocyte mean corpuscular volume (MCV)on 11-19-2021 MCV (RBC) [Entitic vol] 78.0 fL 81-99 [facility] Work Phone: Erythrocyte sedimentation ra martha 11-19-2021 ESR (Bld) [Velocity] 47 mm/h 0-30 [facility] Work Phone: Hematocrit Auto (Bld) [Volum e fraction]on 11-19-2021 Hematocrit (Bld) [Volume fraction] 39.0 % 37-47 [facility] Work Phone: [phone] Iron measurement (mass/mass) on 11-19-2021 Iron (Unsp spec) [Mass/Mass] 38 ug/dL 50-170 [facility] Work Phone: [phone] Laboratory - Chemistry and C hemistry - challengeon 11-19-2021 ALP [Catalytic activity/Vol] 98 U/L 45-117 [facility] Work Phone: [phone] ALT [Catalytic activity/Vol] 27 U/L 13-56 [facility] Work Phone: CO2 [Moles/Vol] 25.0 mmol/L 21.0-32.0 [facility] Work Phone: [phone] Free T4 [Mass/Vol] 1.09 ng/dL 0.76-1.46 [facility] Work Phone: [phone] Globulin (S) [Mass/Vol] 4.3 g/dL 2.2-4.2 [facility] Work Phone: [phone] Urea nitrogen/Creatinine [Mass ratio] 16.1 mg/mg 10-20 [facility] Work Phone: [phone] Laboratory - Hematology and Cell countson 11-19-2021 Erythrocyte distribution width (RBC) [Entitic vol] 41.1 fL 35.1-43.9 [facility] Work Phone: [phone] Erythrocyte distribution width (RBC) [Ratio] 14.7 % 11.6-14.6 [facility] Work Phone: [phone] Immature granulocytes/100 WBC (Bld) 0.400 % 0.0-0.9 [facility] Work Phone: [phone] Comment on above: IG% - Immature Granu locytes (promyelocytes, myelocytes and metamyelocytes) > 1% indicates that a LEFT SHIFT is Present. MCH (RBC) [Entitic mass] 25.0 pg 27.0-32.0 [facility] Work Phone: Nucleated RBC/100 WBC (Bld) [Ratio] 0 % 0-5 [facility] Work Phone: MCHC Auto (RBC) [Mass/Vol]on 11-19-2021 MCHC (RBC) [Mass/Vol] 32.1 g/dL 32-36 [facility] Work Phone: [phone] No Panel Informationon 11-19 Anti-Gliadin IgA Antibody 3 units 0-19 [facility] Work Phone: Comment on above: Negative 0 - 19 Weak Positive 20 - 30 Moderate to Strong Positive >30 Anti-Gliadin IgG Antibody 2 units 0-19 [facility] Work Phone: Comment on above: Negative 0 - 19 Weak Positive 20 - 30 Moderate to Strong Positive >30 Endomysial IgA Antibody Negative Negative [facility] Work Phone: Estimated GFR (MDRD) Amer 100 mL/min >60 [facility] Work Phone: Comment on above: GFR Calc Estimated GFR (MDRD) Non-Af Amer 83 mL/min >60 [facility] Work Phone: Comment on above: Non- GFR Calc Free Triiodothyronine (T3) pg/dL 3.2 pg/mL 2.18-3.98 [facility] Work Phone: Thyroid Stimulating Hormone (TSH) 1.96 uIU/mL 0.358-3.74 [facility] Work Phone: Tissue Transglutaminase IgG Ab <2 U/mL 0-5 [facility] Work Phone: Comment on above: Negative 0 - 5 Weak Positive 6 - 9 Positive >9 Total Iron Binding Capacity 358 ug/dL 250-450 [facility] Work Phone: Vitamin D 25-Hydroxy 15.6 ng/mL [facility] Work Phone: Comment on above: Vitamin D 25(OH) Sta tus Range Deficiency <20 ng/mL (50nmol/L) Insufficiency 20 - 30 ng/mL (50 - 75 nmol/L) Sufficiency 30 - 100 ng/mL (75 - 250 nmol/L) Toxicity >100 ng/mL (>250 nmol/L) Platelets bldon 11-19-2021 Platelets (Bld) [#/Vol] 347 10*3/uL 150-450 [facility] Work Phone: Serum IgA measurement (units /volume)on 11-19-2021 IgA Qn (S) 325 mg/dL 87-352 [facility] Work Phone: Comment on above: Performed at: [address] [id number] Director: Charles Daigle PhD, Phone: [phone] Serum or plasma C reactive p rotein measurement (mass/volume)on 11-19-2021 CRP [Mass/Vol] 8.76 mg/L 0.0-3.0 [facility] Work Phone: Comment on above: C-Reactive Protein ( CRP) provides useful information for thediagnosis, therapy and monitoring of inflammatory processesand associated diseases. For the evaluation of Relative Riskfor Cardiovascular Disease, a High Sensitivity CRP (HSCRP)should be ordered. Serum or plasma albumin morales urement (mass/volume)on 11-19-2021 Albumin [Mass/Vol] 3.4 g/dL 3.2-5.0 [facility] Work Phone: Serum or plasma albumin/glob ulin mass ratioon 11-19-2021 Albumin/Globulin [Mass ratio] 0.8 {ratio} 0.9-2.4 [facility] Work Phone: Serum or plasma calcium morales urement (mass/volume)on 11-19-2021 Calcium [Mass/Vol] 9.4 mg/dL 8.5-10.1 [facility] Work Phone: Serum or plasma cholesterol in HDL measurement (mass/volume)on 11-19-2021 Cholesterol in HDL [Mass/Vol] 45 mg/dL >40 [facility] Work Phone: Comment on above: The drugs N-Acetylcy steine and Metamizole may falsely depress this assay. Reference Range HDL <40 mg/dL Low HDL Cholesterol HDL >or= 60 mg/dL High HDL Cholesterol Serum or plasma cholesterol in VLDL measurement (mass/volume)on 11-19-2021 Cholesterol in VLDL [Mass/Vol] 49 mg/dL 5-40 [facility] Work Phone: Serum or plasma creatinine m easurement (mass/volume)on 11-19-2021 Creatinine [Mass/Vol] 0.87 mg/dL 0.55-1.02 [facility] Work Phone: Comment on above: The validity of the calculated GFR & GFRAA in patients over 70 years has not been determined. Clinical correlation is essential. Serum or plasma ferritin ulisses surement (mass/volume)on 11-19-2021 Ferritin [Mass/Vol] 16 ng/mL 8-252 [facility] Work Phone: Serum or plasma iron saturat ion measurement (mass fraction)on 11-19-2021 Iron saturation [Mass fraction] 10.6 % 15.0-55.0 [facility] Work Phone: Serum or plasma low density lipoprotein (LDL) cholesterol measurement (mass/volume)on 11-19-2021 Cholesterol in LDL [Mass/Vol] 73 mg/dL 0-130 [facility] Work Phone: Serum or plasma urea nitroge n measurement (mass/volume)on 11-19-2021 Urea nitrogen [Mass/Vol] 14 mg/dL 7-18 [facility] Work Phone: Serum tissue transglutaminas e IgA antibody assay (units/volume)on 11-19-2021 tTG IgA Qn (S) <2 U/mL 0-3 [facility] Work Phone: Comment on above: Negative 0 - 3 Weak Positive 4 - 10 Positive >10 Tissue Transglutaminase (tTG) has been identified as the endomysial antigen. Studies have demonstr- ated that endomysial IgA antibodies have over 99% specificity for gluten sensitive enteropathy. Thin prep Papanicolaou smear with manual screeningon 11-19-2021 Thin prep Papanicolaou smear with manual screening 12 U/L 15-37 [facility] Work Phone: Thin prep Papanicolaou smear with manual screening 7 5-15 [facility] Work Phone: Laboratory - Chemistry and C hemistry - challengeon 07-08-2021 HCG ( test) Ql (U) Negative [facility] Work Phone: Comment on above: Very dilute urine sp ecimens, as indicated by a low specificgravity, may not contain sales representative groceries levels of hCG. If is still suspected, a first morning urinespecimen should be collected 48 hours later and tested. Laboratory - Microbiology an d Antimicrobial susceptibilityon 07-04-2021 SARS-CoV-2 (COVID-19) RNA DAVE+probe Ql (Unsp spec) Not detected Not Detect [facility] Work Phone: Comment on above: Normal Reference Ran ge: Not DetectedMethod:(RT-PCR) real-time reverse transcriptase PCRLuminex Interhyp Instrument*The Food and Drug Administration (FDA) has issued an Emergency Use Authorization (EAU) for the Interhyp SARS-CoV-2 Assay for the rapid detection of the virus that causes COVID-19. This test has been validated, but the FDAs independent review of this validation is pending.*Negative results do not preclude infection and should not be used as the sole basis for treatment or patient management. Optimum specimen types and timing for peak viral levels during infections caused by SARS-CoV-2 have not been determined. Collection of multiple specimens from the same patient may be necessary to detect the virus. The possibility of a false negative result should be considered if the patient has clinical presentation or has had recent exposure. Absolute lymphocyte counton 05-28-2021 Lymphocytes Auto (Unsp spec) [#/Vol] 2.73 10*3/uL 0.83-4.51 [facility] Work Phone: [phone] Basophil percentageon 2021 Basophils/100 WBC (Bld) 0.5 % 0-1 [facility] Work Phone: [phone] Chloride [Moles/Vol] 103 mmol/L 98-107 [facility] Work Phone: Eosinophils/100 WBC (Bld) 2.6 % 0-5 [facility] Work Phone: [phone] Glucose [Mass/Vol] 106 mg/dL 74-106 [facility] Work Phone: [phone] Comment on above: Fasting Glucose resu lt from 100 to 125 mg/dL suggests IMPAIRED HOMEOSTASIS per A.D.A. criteria. Neutrophils (Bld) [#/Vol] 4.1 10*3/uL 2.0-7.7 [facility] Work Phone: Neutrophils/100 WBC (Bld) 52.2 % 47-70 [facility] Work Phone: Potassium [Moles/Vol] 3.9 mmol/L 3.5-5.1 [facility] Work Phone: Comment on above: Slight Hemolysis, Re sult may be falsely increased. Sodium [Moles/Vol] 135 mmol/L 136-145 [facility] Work Phone: WBC (Bld) [#/Vol] 7.8 10*3/uL 4.4-11.0 [facility] Work Phone: Blood erythrocytes count (nu mber/volume)on 05-28-2021 RBC (Bld) [#/Vol] 4.66 10*6/uL 4.2-5.4 [facility] Work Phone: [phone] Blood hemoglobin measurement (mass/volume)on 05-28-2021 Hemoglobin (Bld) [Mass/Vol] 13.1 g/dL 12.0-15.0 [facility] Work Phone: Blood lymphocytes/100 leukoc yteson 05-28-2021 Lymphocytes/100 WBC (Bld) 34.9 % 19-41 [facility] Work Phone: Blood monocytes/100 leukocyt eson 05-28-2021 Monocytes/100 WBC (Bld) 9.5 % 0-10 [facility] Work Phone: Blood platelet mean volumeon 05-28-2021 Platelet mean volume (Bld) [Entitic vol] 10.3 fL 6.2-12.0 [facility] Work Phone: [phone] Determination of erythrocyte mean corpuscular volume (MCV)on 05-28-2021 MCV (RBC) [Entitic vol] 81.1 fL 81-99 [facility] Work Phone: Hematocrit Auto (Bld) [Volum e fraction]on 05-28-2021 Hematocrit (Bld) [Volume fraction] 37.8 % 37-47 [facility] Work Phone: Laboratory - Chemistry and C hemistry - challengeon 05-28-2021 CO2 [Moles/Vol] 26.0 mmol/L 21.0-32.0 [facility] Work Phone: Urea nitrogen/Creatinine [Mass ratio] 8.3 mg/mg 10-20 [facility] Work Phone: Laboratory - Hematology and Cell countson 05-28-2021 Erythrocyte distribution width (RBC) [Entitic vol] 39.8 fL 35.1-43.9 [facility] Work Phone: Erythrocyte distribution width (RBC) [Ratio] 13.6 % 11.6-14.6 [facility] Work Phone: Immature granulocytes/100 WBC (Bld) 0.300 % 0.0-0.9 [facility] Work Phone: Comment on above: IG% - Immature Granu locytes (promyelocytes, myelocytes and metamyelocytes) > 1% indicates that a LEFT SHIFT is Present. MCH (RBC) [Entitic mass] 28.1 pg 27.0-32.0 [facility] Work Phone: Nucleated RBC/100 WBC (Bld) [Ratio] 0 % 0-5 [facility] Work Phone: MCHC Auto (RBC) [Mass/Vol]on 05-28-2021 MCHC (RBC) [Mass/Vol] 34.7 g/dL 32-36 [facility] Work Phone: No Panel Informationon 05-28 Estimated Creatinine Clearance Calc 84.30 ml/min [facility] Work Phone: Estimated GFR (MDRD) Amer 125 mL/min >60 [facility] Work Phone: Comment on above: GFR Calc Estimated GFR (MDRD) Non-Af Amer 103 mL/min >60 [facility] Work Phone: Comment on above: Non- GFR Calc Platelets bldon 05-28-2021 Platelets (Bld) [#/Vol] 242 10*3/uL 150-450 [facility] Work Phone: [phone] Serum or plasma calcium morales urement (mass/volume)on 05-28-2021 Calcium [Mass/Vol] 8.6 mg/dL 8.5-10.1 [facility] Work Phone: [phone] Serum or plasma creatinine m easurement (mass/volume)on 05-28-2021 Creatinine [Mass/Vol] 0.72 mg/dL 0.55-1.02 [facility] Work Phone: [phone] Comment on above: The validity of the calculated GFR & GFRAA in patients over 70 years has not been determined. Clinical correlation is essential. Serum or plasma urea nitroge n measurement (mass/volume)on 05-28-2021 Urea nitrogen [Mass/Vol] 6 mg/dL 7-18 [facility] Work Phone: [phone] Thin prep Papanicolaou smear with manual screeningon 05-28-2021 Thin prep Papanicolaou smear with manual screening 6 5-15 [facility] Work Phone: Absolute lymphocyte counton 02-06-2021 Lymphocytes Auto (Unsp spec) [#/Vol] 2.80 10*3/uL 0.83-4.51 [facility] Work Phone: Basophil percentageon 2020 Eosinophils/100 WBC (Bld) 5.0 % 0-5 [facility] Work Phone: Neutrophils (Bld) [#/Vol] 4.8 10*3/uL 2.0-7.7 [facility] Work Phone: WBC (Bld) [#/Vol] 8.6 10*3/uL 4.4-11.0 [facility] Work Phone: Blood erythrocytes count (nu mber/volume)on 02-06-2021 RBC (Bld) [#/Vol] 4.83 10*6/uL 4.2-5.4 [facility] Work Phone: Blood hemoglobin measurement (mass/volume)on 02-06-2021 Hemoglobin (Bld) [Mass/Vol] 13.7 g/dL 12.0-15.0 [facility] Work Phone: Blood lymphocytes/100 leukoc yteson 02-06-2021 Lymphocytes/100 WBC (Bld) 32.5 % 19-41 [facility] Work Phone: Blood monocytes/100 leukocyt eson 02-06-2021 Monocytes/100 WBC (Bld) 6.3 % 0-10 [facility] Work Phone: Blood platelet mean volumeon 02-06-2021 Platelet mean volume (Bld) [Entitic vol] 10.3 fL 6.2-12.0 [facility] Work Phone: Determination of erythrocyte mean corpuscular volume (MCV)on 02-06-2021 MCV (RBC) [Entitic vol] 84.5 fL 81-99 [facility] Work Phone: Hematocrit Auto (Bld) [Volum e fraction]on 02-06-2021 Hematocrit (Bld) [Volume fraction] 40.8 % 37-47 [facility] Work Phone: [phone] Laboratory - Hematology and Cell countson 02-06-2021 Basophils/100 WBC (Unsp spec) 0.3 % 0-1 [facility] Work Phone: Erythrocyte distribution width (RBC) [Entitic vol] 41.2 fL 35.1-43.9 [facility] Work Phone: Erythrocyte distribution width (RBC) [Ratio] 13.3 % 11.6-14.6 [facility] Work Phone: Immature granulocytes/100 WBC (Bld) 0.200 % 0.0-0.9 [facility] Work Phone: Comment on above: IG% - Immature Granu locytes (promyelocytes, myelocytes and metamyelocytes) > 1% indicates that a LEFT SHIFT is Present. MCH (RBC) [Entitic mass] 28.4 pg 27.0-32.0 [facility] Work Phone: Neutrophils/100 WBC (Bld) 55.7 % 47-70 [facility] Work Phone: Nucleated RBC/100 WBC (Bld) [Ratio] 0 % 0-5 [facility] Work Phone: Laboratory - Microbiology an d Antimicrobial susceptibilityon 02-06-2021 SARS-CoV-2 (COVID-19) RNA DAVE+probe Ql (Unsp spec) Not detected Not Detect [facility] Work Phone: Comment on above: Normal Reference Ran ge: Not DetectedMethod:(RT-PCR) real-time reverse transcriptase PCRLuminex Interhyp Instrument*The Food and Drug Administration (FDA) has issued an Emergency Use Authorization (EAU) for the Interhyp SARS-CoV-2 Assay for the rapid detection of the virus that causes COVID-19. This test has been validated, but the FDAs independent review of this validation is pending.*Negative results do not preclude infection and should not be used as the sole basis for treatment or patient management. Optimum specimen types and timing for peak viral levels during infections caused by SARS-CoV-2 have not been determined. Collection of multiple specimens from the same patient may be necessary to detect the virus. The possibility of a false negative result should be considered if the patient has clinical presentation or has had recent exposure. MCHC Auto (RBC) [Mass/Vol]on 02-06-2021 MCHC (RBC) [Mass/Vol] 33.6 g/dL 32-36 [facility] Work Phone: Platelets bldon 02-06-2021 Platelets (Bld) [#/Vol] 257 10*3/uL 150-450 [facility] Work Phone: Bacteria identified Cx Nom ( Wound)on 02-04-2021 Wound Culture Corynebacterium amycolatum [facility] Work Phone: Wound Culture Enterococcus faecalis [facility] Work Phone: Wound Culture Escherichia coli [facility] Work Phone: Gram stain for investigation of transfusion reactionon 11-29-2021 Microscopic observation Gram stain Nom (Unsp spec) [facility] Work Phone: Progress Noteon 09-06-2020 [employer] Authentication Interface Message Text Maternal Medicine Consult Date of Service: 09/06/2020 Referring Provider: Cheryle Meza Primary Care Provider: Marilyn [facility], MD Srinath Reason for Consult: Dr. Cheryle Meza requests that Janette have consult for cerclage due to (short) cervical length with funneling. Janette is a 25 y.o. at 20w3d gestation who presents for evaluation of short cervix and possible cerclage. The patient was referred due to short cervical length of 1.6 cm seen on TVS (09/04/20) at another facility; at that time no funneling was seen. Cervix was closed on subsequent digital exam. Her previous was delivered at full term, 39 weeks, without history of contractions or labor. The history is negative for uterine malformations or surgeries other than the section. HPI OB History Para Term AB Living 2 1 1 0 0 1 SAB TAB Ectopic Multiple Live Births 0 0 0 0 1 # Outcome Date GA Lbr Carlo/2nd Weight Sex Delivery Anes PTL Lv 2 Current 1 Term 09/04/17 39w0d 3.515 kg F CS-LTranv EPI N ZEINA Comments: induced for GHTN, AOD 5cm, Cat 2 FHR recurrent late decels, meconium fluid Name: Zahra Past Medical History: Diagnosis Date Anemia IBS (irritable bowel syndrome) Obesity affecting , antepartum 09/06/2020 Psychiatric problem Short cervical length during in second trimester Uncomplicated asthma Past Surgical History: Procedure Laterality Date SECTION, LOW TRANSVERSE 2018 CHOLECYSTECTOMY COLONOSCOPY MYRINGOTOMY TOE SURGERY TONSILLECTOMY UPPER GASTROINTESTINAL ENDOSCOPY No Known Allergies Social History Socioeconomic History Marital status: Spouse name: Jonah Number of children: One 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; 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 Tobacco Use Smoking status: Never Smoker Smokeless tobacco: Never Used Substance and Sexual Activity Alcohol use: Never Drug use: Never Sexual activity: None Other Topics Concern None Social History Narrative None Infections Live with someone with or exposed to TB No History of STI's Rash or viral illness since last menstruation No 2nd STI GBS No 3rd STI Hx of Chicken Pox No Other infections covid 03/2020, shingles twice Partner has hx of genital herpes No Genetics Age is > than 35y as of estimated date No Thalassemia No Neural Tube Defect No Congenital Heart Defect No Down Syndrome No Erik-Sachs No Karo Disease No Sickle Cell Disease or Trait No Hemophilia, Thrombophilia No Muscular Dystrophy No Cystic Fibrosis No [place]'s Chorea No Intellectual Disability/Autism No Metabolic Disorder No Recurrent Loss, or a Stillbirth No Inherited Genetic or Chromosomal Disorder No Illicit; Rec.drugs; Alcohol since last menses No Family History Problem Relation Age of Onset Anxiety Disorder Mother Seizures Father Anxiety Disorder Father Thyroid Cancer Sister Cancer Sister skin Outpatient Encounter Medications as of 09/06/2020 Medication Sig Dispense Refill Vit-Fe Fumarate-FA ( VITAMIN PO) Take 1 Tablet by mouth daily cetirizine (ZYRTEC) 10 MG tablet Take 10 mg by mouth daily meclizine (ANTIVERT) 25 MG tablet TAKE 1 TABLET BY MOUTH THREE TIMES DAILY NEEDED FOR DIZZINESS UNABLE TO FIND Iron Infusion x 3. Last infusion was 1-2 weeks ago per patient. [DISCONTINUED] Docosahexaenoic Acid 200 MG CAPS Take 200 mg by mouth daily No facility-administered encounter medications on file as of 09/06/2020. Review of Systems Constitutional: Positive for activity change (patient was taken out of work this week). Negative for fever, chills and appetite change. HENT: Positive for postnasal drip. Negative for sinus pressure. Respiratory: Positive for cough (coughs on awakening in the AM). Negative for chest tightness and wheezing. Cardiovascular: Negative for chest pain and murmur. Hand swelling Gastrointestinal: Positive for nausea, vomiting (in AM) and abdominal pain (mild upper abd pain, has IBS; went to ER). Negative for diarrhea and blood in stool (went to ER, discontinued). Genitourinary: Negative for dysuria, hematuria, vaginal bleeding, vaginal discharge, difficulty urinating, vaginal pain and pelvic pain. Neurological: Negative for dizziness. OB: + movements; negative contractions. Physical Exam Vitals reviewed. Constitutional: Appearance: She is well-developed and well-nourished. HENT: Head: Normocephalic. Eyes: Extraocular Movements: EOM normal. Neck: Thyroid: No thyromegaly. Vascular: No JVD. Trachea: No tracheal deviation. Cardiovascular: Rate and Rhythm: Normal rate and regular rhythm. Heart sounds: Normal heart sounds. No murmur heard. Pulmonary: Effort: Pulmonary effort is normal. No respiratory distress. Breath sounds: Normal breath sounds. No stridor. No wheezing or rales. Abdominal: General: Bowel sounds are normal. Palpations: Abd (more content not included)... Normal [facility] Vital Signs Date Time Vital Sign Value Performing Clinician Faci lity 10-05-2024 08:33-0400 Body temperature 97.7 [degF] Dr. Rhina Kulkarni MD Work Phone: [facility] 10-05-2024 08:33-0400 Diastolic blood pressure 70 mm[Hg] Dr. Rhina Kulkarni MD Work Phone: [facility] 10-05-2024 08:33-0400 Heart rate 81 /min Dr. Rhina Kulkarni MD Work Phone: [facility] 10-05-2024 08:33-0400 Respiratory rate 15 /min Dr. Rhina Kulkarni MD Work Phone: [facility] 10-05-2024 08:33-0400 SaO2% (BldA) [Mass fraction] 98 % Dr. Rhina Kulkarni MD Work Phone: [facility] 10-05-2024 08:33-0400 Systolic blood pressure 114 mm[Hg] Dr. Rhina Kulkarni MD Work Phone: [facility] 08-24-2024 11:13-0400 Body height 152.[address] Rhina Kulkarni MD Work Phone: [facility] 08-24-2024 11:13-0400 Body mass index (BMI) [Ratio] 46.9 kg/m2 Dr. Rhina Kulkarni MD Work Phone: [facility] 08-24-2024 11:13-0400 Body weight 109.[address] Rhina Kulkarni MD Work Phone: [facility] 08-24-2024 11:13-0400 Diastolic blood pressure 82 mm[Hg] Dr. Rhina Kulkarni MD Work Phone: [facility] 08-24-2024 11:13-0400 Systolic blood pressure 122 mm[Hg] Dr. Rhina Kulkarni MD Work Phone: [facility] 05-28-2023 13:39-0400 Body height 157.48 cm TEAM [employer] Tonny Costa [employer]IVER Work Phone: [facility] 05-28-2023 13:39-0400 Body mass index (BMI) [Ratio] 40.8 kg/m2 TE[employer] Tonny Costa TE[employer] DRIVER Work Phone: [facility] 05-28-2023 13:39-0400 Body temperature 98.1 [degF] TE[employer]C Tonny Costa TEAM OTR TR[employer] DRIVER Work Phone: [facility] 05-28-2023 13:39-0400 Body weight 101.15 kg TEAM [employer]TR TR[employer] DRIVER[employer]C Tonny Costa TEAM [employer] DRIVER Work Phone: [facility] 05-28-2023 13:39-0400 Diastolic blood pressure 80 mm[Hg] TE[employer]IVER[employer]C Tonny Costa TEAM OTR TR[employer] DRIVER Work Phone: [facility] 05-28-2023 13:39-0400 Heart rate 62 /min TE[employer] Tonny Costa TEAM [employer] TRUCK DRIVER Work Phone: [facility] 05-28-2023 13:39-0400 Respiratory rate 18 /min TE[employer] TR[employer]IVER-C Tonny Costa TEAM OTR TRUCK DRIVER Work Phone: [facility] 05-28-2023 13:39-0400 SaO2% (BldA) [Mass fraction] 99 % TEAM [employer] TR[employer]IVER[employer]C Tonny Costa TEAM OTR TRUCK DRIVER Work Phone: [facility] 05-28-2023 13:39-0400 Systolic blood pressure 116 mm[Hg] TEAM [employer]TR TR[employer] DRIVER-C Tonny Costa TEAM OTR TRUCK DRIVER Work Phone: [facility] 05-22-2023 12:44-0400 Body temperature 97.8 [degF] TEAM [employer]IVER[employer]C Tonny Costa TEAM OTR TRUCK DRIVER Work Phone: [facility] 05-22-2023 12:44-0400 Diastolic blood pressure 72 mm[Hg] TE[employer] TR[employer]IVER-C Tonny Costa TEAM OTR TRUCK DRIVER Work Phone: [facility] 05-22-2023 12:44-0400 Heart rate 103 /min TE[employer]IVER[employer] Tonny Costa TEAM OTR TRUCK DRIVER Work Phone: [facility] 05-22-2023 12:44-0400 Respiratory rate 16 /min TE[employer] Tonny Costa TEAM OTR TRUCK DRIVER Work Phone: [facility] 05-22-2023 12:44-0400 SaO2% (BldA) [Mass fraction] 100 % TEAM [employer]IVER[employer]C Tonny Costa TEAM OTR TRUCK DRIVER Work Phone: [facility] 05-22-2023 12:44-0400 Systolic blood pressure 128 mm[Hg] TEAM [employer]TR TR[employer] DRIVER-C Tonny Costa TEAM OTR TRUCK DRIVER Work Phone: [facility] 04-07-2023 11:34-0500 Body height 157.48 cm TEAM OTR TR[employer] DRIVER-C Tonny Costa TEAM OTR TRUCK DRIVER Work Phone: [facility] 04-07-2023 11:34-0500 Body mass index (BMI) [Ratio] 41.8 kg/m2 TE[employer] Tonny Costa TEAM OTR TR[employer] DRIVER Work Phone: [facility] 04-07-2023 11:34-0500 Body temperature 97.7 [degF] TE[employer] TR[employer]IVER[employer]C Tonny Costa TEAM OTR TRUCK DRIVER Work Phone: [facility] 04-07-2023 11:34-0500 Body weight 103.64 kg TEAM OTR TR[employer] DRIVER-C Tonny Costa TEAM OTR TRUCK DRIVER Work Phone: [facility] 04-07-2023 11:34-0500 Diastolic blood pressure 82 mm[Hg] TE[employer] TR[employer] DRIVER-C Tonny Costa TEAM OTR TRUCK DRIVER Work Phone: [facility] 04-07-2023 11:34-0500 Heart rate 89 /min TE[employer]IVER-[employer] Tonny Costa TEAM OTR TRUCK DRIVER Work Phone: [facility] 04-07-2023 11:34-0500 Respiratory rate 16 /min TE[employer] TR[employer]IVER-[employer] Tonny Costa TEAM OTR TRUCK DRIVER Work Phone: [facility] 04-07-2023 11:34-0500 SaO2% (BldA) [Mass fraction] 99 % TEAM [employer] TR[employer]IVER-[employer] Tonny Costa TEAM OTR TR[employer] DRIVER Work Phone: [facility] 04-07-2023 11:34-0500 Systolic blood pressure 122 mm[Hg] TEAM [employer]TR TR[employer] DRIVER-C Tonny Costa TEAM OTR TRUCK DRIVER Work Phone: [facility] 03-31-2023 15:04-0500 Body temperature 98.2 [degF] TE[employer] TR[employer]IVER-C Tonny Costa TEAM OTR TR[employer] DRIVER Work Phone: [facility] 03-31-2023 15:04-0500 Diastolic blood pressure 79 mm[Hg] TEAM [employer] TR[employer] DRIVER-C Tonny Costa TEAM OTR TRUCK DRIVER Work Phone: [facility] 03-31-2023 15:04-0500 Heart rate 77 /min TEAM [employer] TR[employer]IVER[employer]C Tonny Costa TEAM OTR TRUCK DRIVER Work Phone: [facility] 03-31-2023 15:04-0500 Respiratory rate 16 /min TEAM OTR TRUCK DRIVER-C Tonny Costa TEAM OTR TRUCK DRIVER Work Phone: [facility] 03-31-2023 15:04-0500 SaO2% (BldA) [Mass fraction] 100 % TEAM OTR TRUCK DRIVER-C Tonny Costa TEAM OTR TRUCK DRIVER Work Phone: [facility] 03-31-2023 15:04-0500 Systolic blood pressure 135 mm[Hg] TEAM OTR TRUCK DRIVER-C Tonny Costa TEAM OTR TRUCK DRIVER Work Phone: [facility] 03-31-2023 13:18-0500 Body height 157.48 cm TEAM OTR TRUCK DRIVER-C Tonny Costa TEAM OTR TRUCK DRIVER Work Phone: [facility] 03-31-2023 13:18-0500 Body mass index (BMI) [Ratio] 41.7 kg/m2 TEAM OTR TRUCK DRIVER-C Tonny Costa TEAM OTR TRUCK DRIVER Work Phone: [facility] 03-31-2023 13:18-0500 Body weight 103.41 kg TEAM OTR TRUCK DRIVER-C Tonny Costa TEAM OTR TRUCK DRIVER Work Phone: [facility] 03-18-2023 11:02-0500 Body height 157.48 cm TEAM OTR TRUCK DRIVER-C Tonny Costa TEAM OTR TRUCK DRIVER Work Phone: [facility] 03-18-2023 11:02-0500 Body mass index (BMI) [Ratio] 42 kg/m2 TEAM OTR TRUCK DRIVER-C Tonny Costa TEAM OTR TRUCK DRIVER Work Phone: [facility] 03-18-2023 11:02-0500 Body temperature 97.7 [degF] TEAM OTR TRUCK DRIVER-C Tonny Costa TEAM OTR TRUCK DRIVER Work Phone: [facility] 03-18-2023 11:02-0500 Body weight 104.32 kg TEAM OTR TRUCK DRIVER-C Tonny Costa TEAM OTR TRUCK DRIVER Work Phone: [facility] 03-18-2023 11:02-0500 Diastolic blood pressure 80 mm[Hg] TEAM OTR TRUCK DRIVER-C Tonny Costa TEAM OTR TRUCK DRIVER Work Phone: [facility] 03-18-2023 11:02-0500 Heart rate 102 /min TEAM OTR TRUCK DRIVER-C Tonny Costa TEAM OTR TRUCK DRIVER Work Phone: [facility] 03-18-2023 11:02-0500 Respiratory rate 16 /min TEAM OTR TRUCK DRIVER-C Tonny Costa TEAM OTR TRUCK DRIVER Work Phone: [facility] 03-18-2023 11:02-0500 SaO2% (BldA) [Mass fraction] 98 % TEAM OTR TRUCK DRIVER-C Tonny Costa TEAM OTR TRUCK DRIVER Work Phone: [facility] 03-18-2023 11:02-0500 Systolic blood pressure 120 mm[Hg] TEAM OTR TRUCK DRIVER-C Tonny Costa TEAM OTR TRUCK DRIVER Work Phone: [facility] 01-13-2023 10:06-0500 Body height 157.48 cm TEAM OTR TRUCK DRIVER-C Tonny Costa TEAM OTR TRUCK DRIVER Work Phone: [facility] 01-13-2023 10:06-0500 Body mass index (BMI) [Ratio] 41.8 kg/m2 TEAM OTR TRUCK DRIVER-C Tonny Costa TEAM OTR TRUCK DRIVER Work Phone: [facility] 01-13-2023 10:06-0500 Body temperature 97.9 [degF] TEAM OTR TRUCK DRIVER-C Tonny Costa TEAM OTR TRUCK DRIVER Work Phone: [facility] 01-13-2023 10:06-0500 Body weight 103.87 kg TEAM OTR TRUCK DRIVER-C Tonny Costa TEAM OTR TRUCK DRIVER Work Phone: [facility] 01-13-2023 10:06-0500 Diastolic blood pressure 68 mm[Hg] TEAM OTR TRUCK DRIVER-C Tonny Costa TEAM OTR TRUCK DRIVER Work Phone: [facility] 01-13-2023 10:06-0500 Heart rate 80 /min TEAM OTR TRUCK DRIVER-C Tonny Costa TEAM OTR TRUCK DRIVER Work Phone: [facility] 01-13-2023 10:06-0500 Respiratory rate 18 /min TEAM OTR TRUCK DRIVER-C Tonny Costa TEAM OTR TRUCK DRIVER Work Phone: [facility] 01-13-2023 10:06-0500 SaO2% (BldA) [Mass fraction] 99 % TEAM OTR TRUCK DRIVER-C Tonny Costa TEAM OTR TRUCK DRIVER Work Phone: [facility] 01-13-2023 10:06-0500 Systolic blood pressure 112 mm[Hg] TEAM OTR TRUCK DRIVER-C Tonny Costa TEAM OTR TRUCK DRIVER Work Phone: [facility] 11-06-2022 13:46-0400 Body temperature 98.9 [degF] TEAM OTR TRUCK DRIVER-C Tonny Costa TEAM OTR TRUCK DRIVER Work Phone: [facility] 11-06-2022 13:46-0400 Diastolic blood pressure 78 mm[Hg] TEAM OTR TRUCK DRIVER-C Tonny Costa TEAM OTR TRUCK DRIVER Work Phone: [facility] 11-06-2022 13:46-0400 Heart rate 95 /min TEAM OTR TRUCK DRIVER-C Tonny Costa TEAM OTR TRUCK DRIVER Work Phone: [facility] 11-06-2022 13:46-0400 Respiratory rate 14 /min TEAM OTR TRUCK DRIVER-C Tonny Costa TEAM OTR TRUCK DRIVER Work Phone: [facility] 11-06-2022 13:46-0400 SaO2% (BldA) [Mass fraction] 99 % TEAM OTR TRUCK DRIVER-C Tonny Costa TEAM OTR TRUCK DRIVER Work Phone: [facility] 11-06-2022 13:46-0400 Systolic blood pressure 110 mm[Hg] TEAM OTR TRUCK DRIVER-C Tonny Costa TEAM OTR TRUCK DRIVER Work Phone: [facility] 12-18-2021 07:59-0400 Body height 152.4 cm No Primary Care Physician [facility] Work Phone: 12-18-2021 07:59-0400 Body mass index (BMI) [Ratio] 49 kg/m2 No Primary Care Physician [facility] Work Phone: 12-18-2021 07:59-0400 Body temperature 98.2 [degF] No Primary Care Physician [facility] Work Phone: 12-18-2021 07:59-0400 Body weight 113.96 kg No Primary Care Physician [facility] Work Phone: 12-18-2021 07:59-0400 Diastolic blood pressure 78 mm[Hg] No Primary Care Physician [facility] Work Phone: 12-18-2021 07:59-0400 Heart rate 90 /min No Primary Care Physician [facility] Work Phone: 12-18-2021 07:59-0400 Respiratory rate 16 /min No Primary Care Physician [facility] Work Phone: 12-18-2021 07:59-0400 SaO2% (BldA) [Mass fraction] 97 % No Primary Care Physician [facility] Work Phone: 12-18-2021 07:59-0400 Systolic blood pressure 112 mm[Hg] No Primary Care Physician [facility] Work Phone: 12-11-2021 14:41-0400 Body mass index (BMI) [Ratio] 48.8 kg/m2 No Primary Care Physician [facility] Work Phone: 12-11-2021 14:41-0400 Body temperature 98.5 [degF] No Primary Care Physician [facility] Work Phone: 12-11-2021 14:41-0400 Body weight 113.39 kg No Primary Care Physician [facility] Work Phone: 12-11-2021 14:41-0400 Diastolic blood pressure 82 mm[Hg] No Primary Care Physician [facility] Work Phone: 12-11-2021 14:41-0400 Heart rate 88 /min No Primary Care Physician [facility] Work Phone: 12-11-2021 14:41-0400 Respiratory rate 14 /min No Primary Care Physician [facility] Work Phone: 12-11-2021 14:41-0400 SaO2% (BldA) [Mass fraction] 99 % No Primary Care Physician [facility] Work Phone: 12-11-2021 14:41-0400 Systolic blood pressure 114 mm[Hg] No Primary Care Physician [facility] Work Phone: 11-22-2021 10:24-0400 Body height 152.4 cm No Primary Care Physician [facility] Work Phone: 11-22-2021 10:24-0400 Body mass index (BMI) [Ratio] 47.7 kg/m2 No Primary Care Physician [facility] Work Phone: 11-22-2021 10:24-0400 Body temperature 97.1 [degF] No Primary Care Physician [facility] Work Phone: 11-22-2021 10:24-0400 Body weight 110.9 kg No Primary Care Physician [facility] Work Phone: 11-22-2021 10:24-0400 Diastolic blood pressure 72 mm[Hg] No Primary Care Physician [facility] Work Phone: 11-22-2021 10:24-0400 Heart rate 104 /min No Primary Care Physician [facility] Work Phone: 11-22-2021 10:24-0400 Respiratory rate 16 /min No Primary Care Physician [facility] Work Phone: 11-22-2021 10:24-0400 SaO2% (BldA) [Mass fraction] 99 % No Primary Care Physician [facility] Work Phone: 11-22-2021 10:24-0400 Systolic blood pressure 120 mm[Hg] No Primary Care Physician [facility] Work Phone: 11-19-2021 14:33-0400 Body mass index (BMI) [Ratio] 47.8 kg/m2 No Primary Care Physician [facility] Work Phone: 11-19-2021 14:33-0400 Body temperature 98.2 [degF] No Primary Care Physician [facility] Work Phone: 11-19-2021 14:33-0400 Body weight 111.13 kg No Primary Care Physician [facility] Work Phone: 11-19-2021 14:33-0400 Diastolic blood pressure 86 mm[Hg] No Primary Care Physician [facility] Work Phone: 11-19-2021 14:33-0400 Heart rate 94 /min No Primary Care Physician [facility] Work Phone: 11-19-2021 14:33-0400 Respiratory rate 14 /min No Primary Care Physician [facility] Work Phone: 11-19-2021 14:33-0400 SaO2% (BldA) [Mass fraction] 98 % No Primary Care Physician [facility] Work Phone: 11-19-2021 14:33-0400 Systolic blood pressure 122 mm[Hg] No Primary Care Physician [facility] Work Phone: 11-15-2021 19:55-0400 Heart rate 126 /min No Primary Care Physician [facility] Work Phone: 11-15-2021 19:55-0400 Respiratory rate 25 /min No Primary Care Physician [facility] Work Phone: 11-15-2021 19:44-0400 Body temperature 97 [degF] No Primary Care Physician [facility] Work Phone: 11-15-2021 19:44-0400 Diastolic blood pressure 93 mm[Hg] No Primary Care Physician [facility] Work Phone: 11-15-2021 19:44-0400 SaO2% (BldA) [Mass fraction] 98 % No Primary Care Physician [facility] Work Phone: 11-15-2021 19:44-0400 Systolic blood pressure 141 mm[Hg] No Primary Care Physician [facility] Work Phone: 11-15-2021 19:41-0400 Body mass index (BMI) [Ratio] 48.8 kg/m2 No Primary Care Physician [facility] Work Phone: 11-15-2021 19:41-0400 Body weight 113.39 kg No Primary Care Physician [facility] Work Phone: 07-08-2021 10:30-0400 Body temperature 98.3 [degF] No Primary Care Physician [facility] Work Phone: 07-08-2021 10:30-0400 Diastolic blood pressure 77 mm[Hg] No Primary Care Physician [facility] Work Phone: 07-08-2021 10:30-0400 Heart rate 90 /min No Primary Care Physician [facility] Work Phone: 07-08-2021 10:30-0400 Respiratory rate 16 /min No Primary Care Physician [facility] Work Phone: 07-08-2021 10:30-0400 SaO2% (BldA) [Mass fraction] 100 % No Primary Care Physician [facility] Work Phone: 07-08-2021 10:30-0400 Systolic blood pressure 131 mm[Hg] No Primary Care Physician [facility] Work Phone: 07-08-2021 07:45-0400 Body height 152.4 cm No Primary Care Physician [facility] Work Phone: 07-08-2021 07:45-0400 Body mass index (BMI) [Ratio] 49.7 kg/m2 No Primary Care Physician [facility] Work Phone: 07-08-2021 07:45-0400 Body weight 115.6 kg No Primary Care Physician [facility] Work Phone: 06-17-2021 14:59-0400 Body height 152.4 cm No Primary Care Physician [facility] Work Phone: 06-17-2021 14:59-0400 Body mass index (BMI) [Ratio] 50.3 kg/m2 No Primary Care Physician [facility] Work Phone: 06-17-2021 14:59-0400 Body temperature 98.1 [degF] No Primary Care Physician [facility] Work Phone: 06-17-2021 14:59-0400 Body weight 117.02 kg No Primary Care Physician [facility] Work Phone: 06-17-2021 14:59-0400 Diastolic blood pressure 78 mm[Hg] No Primary Care Physician [facility] Work Phone: 06-17-2021 14:59-0400 Heart rate 100 /min No Primary Care Physician [facility] Work Phone: 06-17-2021 14:59-0400 Respiratory rate 20 /min No Primary Care Physician [facility] Work Phone: 06-17-2021 14:59-0400 SaO2% (BldA) [Mass fraction] 99 % No Primary Care Physician [facility] Work Phone: 06-17-2021 14:59-0400 Systolic blood pressure 122 mm[Hg] No Primary Care Physician [facility] Work Phone: 05-28-2021 06:22-0400 Diastolic blood pressure 60 mm[Hg] No Primary Care Physician [facility] Work Phone: 05-28-2021 06:22-0400 Heart rate 96 /min No Primary Care Physician [facility] Work Phone: 05-28-2021 06:22-0400 Respiratory rate 18 /min No Primary Care Physician [facility] Work Phone: 05-28-2021 06:22-0400 SaO2% (BldA) [Mass fraction] 97 % No Primary Care Physician [facility] Work Phone: 05-28-2021 06:22-0400 Systolic blood pressure 138 mm[Hg] No Primary Care Physician [facility] Work Phone: 05-28-2021 05:13-0400 Body temperature 96.1 [degF] No Primary Care Physician [facility] Work Phone: 05-28-2021 05:11-0400 Body height 152.4 cm No Primary Care Physician [facility] Work Phone: 05-28-2021 05:11-0400 Body mass index (BMI) [Ratio] 52.4 kg/m2 No Primary Care Physician [facility] Work Phone: 05-28-2021 05:11-0400 Body weight 121.8 kg No Primary Care Physician [facility] Work Phone: 02-21-2021 10:43-0500 Body mass index (BMI) [Ratio] 48.4 kg/m2 No Primary Care Physician [facility] Work Phone: 02-21-2021 10:43-0500 Body weight 112.54 kg No Primary Care Physician [facility] Work Phone: 02-21-2021 10:43-0500 Diastolic blood pressure 86 mm[Hg] No Primary Care Physician [facility] Work Phone: 02-21-2021 10:43-0500 Systolic blood pressure 120 mm[Hg] No Primary Care Physician [facility] Work Phone: 02-06-2021 11:06-0500 Diastolic blood pressure 80 mm[Hg] No Primary Care Physician [facility] Work Phone: 02-06-2021 11:06-0500 Systolic blood pressure 100 mm[Hg] No Primary Care Physician [facility] Work Phone: 02-04-2021 14:15-0500 Body mass index (BMI) [Ratio] 48 kg/m2 No Primary Care Physician [facility] Work Phone: 02-04-2021 14:15-0500 Body weight 111.58 kg No Primary Care Physician [facility] Work Phone: 02-04-2021 14:15-0500 Diastolic blood pressure 90 mm[Hg] No Primary Care Physician [facility] Work Phone: 02-04-2021 14:15-0500 Systolic blood pressure 134 mm[Hg] No Primary Care Physician [facility] Work Phone: Encounters Encounter Date Encounter Type Care Provider Facility Start: 11-25-2024 ambulatory Rhina Kulkarni [place] Start: 11-16-2024 ambulatory Rhina Kulkarni Facility :[facility] Start: 11-02-2024 End: 11-02-[address] Rhina Kulkarni MD Work Phone: -[facility] Start: 11-02-2024 End: 11-02-[address] Cheryle Meza MD -[facility] Start: 11-02-2024 End: 11-02-2024 ambulatory Cheryle Meza Facility:[facility] Start: 10-31-2024 End: 10-31-[address] Rhina Kulkarni MD Work Phone: -[facility] Start: 10-31-2024 End: 10-31-[address] Cheryle Meza MD -[facility] Start: 10-31-2024 End: 10-31-2024 ambulatory Cheryle Meza Facility:[facility] Start: 10-05-2024 End: 10-05-2024 Patient encounter procedure Fabrizio Rubi NP-C [facility] Work Phone: Start: 10-05-2024 End: 10-05-[address] Rhina Kulkarni MD Work Phone: -[facility] Start: 08-30-2024 End: 08-30-[address] Rhina Kulkarni MD Work Phone: -[facility] Start: 08-30-2024 End: 08-30-[address] Cheryle Meza MD -[facility] Work Phone: Start: 08-30-2024 End: 08-30-2024 ambulatory Rhina Kulkarni Facility:[facility] Start: 08-24-2024 End: 08-24-[address] Cheryle Meza MD -[facility] Work Phone: Start: 08-24-2024 End: 08-24-[address] Rhina Kulkarni MD Work Phone: [facility] Work Phone: Start: 08-24-2024 End: 08-24-2024 ambulatory Rhina Kulkarni Facility:[facility] Start: 08-22-2024 End: 08-22-[address] Rhina Kulkarni MD Work Phone: [facility] Work Phone: Start: 08-22-2024 End: 08-22-[address] Josseline Celeste DO -[facility] Start: 08-22-2024 End: 08-22-2024 ambulatory Josseline Celeste Facility:[facility] Start: 03-20-2024 End: 03-20-2024 ambulatory Rhina Hollowaylay Facility[place] Start: 12-29-2023 End: 12-29-2023 Emergency department patient visit Sriram Segal Facility:[facility] Start: 06-02-2023 End: 06-02-2023 ambulatory TEAM OTR TRUCK DRIVER-C Tonny Costa TEAM OTR TRUCK DRIVER Work Phone: [facility] Work Phone: Start: 06-02-2023 End: 06-02-2023 Discharged Recurring TEAM OTR TRUCK DRIVER-C Tonny Costa TEAM OTR TRUCK DRIVER Work Phone: [facility]-Physical Therapy Work Phone: Start: 05-28-2023 End: 05-28-2023 Patient encounter procedure TEAM OTR TRUCK DRIVER-C Tonny Costa TEAM OTR TRUCK DRIVER Work Phone: [facility] Work Phone: Start: 05-22-2023 End: 05-22-2023 Patient encounter procedure TEAM OTR TRUCK DRIVER-C Tonny Barrientosder TEAM OTR TRUCK DRIVER Work Phone: [facility] Work Phone: Start: 04-20-2023 Registered Recurring TEAM OTR TRUCK DRIVER-C Tonny Barrientosder TEAM OTR TRUCK DRIVER Work Phone: [facility]-Physical Therapy Work Phone: Start: 04-16-2023 End: 04-16-2023 ambulatory TEAM OTR TRUCK DRIVER-C Tonny Costa TEAM OTR TRUCK DRIVER Work Phone: [facility] Work Phone: Start: 04-16-2023 End: 04-16-2023 Patient encounter procedure TEAM OTR TRUCK DRIVER-C Tonny Barrientosder TEAM OTR TRUCK DRIVER Work Phone: [facility]-Cat Scan, [facility] Work Phone: Start: 04-07-2023 End: 04-07-2023 Patient encounter procedure TEAM OTR TRUCK DRIVER-C Tonny Costa TEAM OTR TRUCK DRIVER Work Phone: [facility] Radiology Start: 04-07-2023 End: 04-07-2023 Patient encounter procedure TEAM OTR TRUCK DRIVER-C Tonny Barrientosder TEAM OTR TRUCK DRIVER Work Phone: [facility] Internal Medicine Work Phone: Start: 03-31-2023 End: 03-31-2023 ambulatory TEAM OTR TRUCK DRIVER-C Tonny Barrientosder TEAM OTR TRUCK DRIVER Work Phone: [facility] Work Phone: Start: 03-31-2023 End: 03-31-2023 Patient encounter procedure TEAM OTR TRUCK DRIVER-C Tonny Barrientosder TEAM OTR TRUCK DRIVER Work Phone: [facility]-Medical Out Work Phone: Start: 03-18-2023 End: 03-18-2023 ambulatory TEAM OTR TRUCK DRIVER-C Tonny Costa TEAM OTR TRUCK DRIVER Work Phone: [facility] Work Phone: Start: 03-18-2023 End: 03-18-2023 Patient encounter procedure TEAM OTR TRUCK DRIVER-C Tonny Costa TEAM OTR TRUCK DRIVER Work Phone: [facility] Internal Medicine Work Phone: Start: 01-22-2023 End: 01-22-2023 ambulatory TEAM OTR TRUCK DRIVER-C Tonny Costa TEAM OTR TRUCK DRIVER Work Phone: [facility] Work Phone: Start: 01-22-2023 End: 01-22-2023 Patient encounter procedure TEAM OTR TRUCK DRIVER-C Tonny Costa TEAM OTR TRUCK DRIVER Work Phone: [facility]-Laboratory, [facility] Start: 01-13-2023 End: 01-13-2023 Patient encounter procedure TEAM OTR TRUCK DRIVER-C Tonny Costa TEAM OTR TRUCK DRIVER Work Phone: [facility] Internal Medicine Work Phone: Start: 11-06-2022 End: 11-06-2022 Patient encounter procedure TEAM OTR TRUCK DRIVER-C Tonny Costa TEAM OTR TRUCK DRIVER Work Phone: [facility] Work Phone: Start: 01-14-2022 End: 01-14-2022 ambulatory No Primary Care Physician [facility] Work Phone: Start: 01-14-2022 End: 01-14-2022 Patient encounter procedure No Primary Care Physician [facility]-Laboratory, [facility] Start: 12-18-2021 End: 12-18-2021 Patient encounter procedure No Primary Care Physician [facility]-Pulmonary Medicine [facility] Start: 12-11-2021 End: 12-11-2021 Patient encounter procedure No Primary Care Physician [facility] Internal Medicine Start: 11-22-2021 End: 11-22-2021 ambulatory No Primary Care Physician [facility] Work Phone: Start: 11-22-2021 End: 11-22-2021 Patient encounter procedure No Primary Care Physician [facility] Start: 11-22-2021 End: 11-22-2021 Patient encounter procedure No Primary Care Physician [facility] Internal Medicine Start: 11-19-2021 End: 11-19-2021 ambulatory No Primary Care Physician [facility] Work Phone: Start: 11-19-2021 End: 11-19-2021 Patient encounter procedure No Primary Care Physician [facility] Internal Medicine Start: 11-15-2021 End: 11-15-2021 Emergency department patient visit No Primary Care Physician [facility]-Emergency Department Start: 07-08-2021 End: 07-08-2021 Admission to same day surgery center No Primary Care Physician [facility]-Surgical Day Care Start: 07-04-2021 End: 07-04-2021 Patient encounter procedure No Primary Care Physician [facility]-Laboratory, Specimen Start: 06-17-2021 End: 06-17-2021 Patient encounter procedure No Primary Care Physician [facility] Internal Medicine Start: 06-13-2021 End: 06-13-2021 Patient encounter procedure No Primary Care Physician [facility]-Laboratory, Specimen Start: 05-28-2021 End: 05-28-2021 Emergency department patient visit No Primary Care Physician [facility]-Emergency Department Start: 02-21-2021 End: 02-21-2021 Patient encounter procedure No Primary Care Physician [facility] Women's Care Start: 02-06-2021 End: 02-06-2021 Patient encounter procedure No Primary Care Physician [facility]Laboratory, [facility] Start: 02-04-2021 End: 02-04-2021 Patient encounter procedure No Primary Care Physician [facility]-Laboratory, Specimen Start: 02-04-2021 End: 02-04-2021 Patient encounter procedure No Primary Care Physician [facility] Women[facility] Procedures Date Procedure Procedure Detail Performing Clinician Start: 08-30-[address] Maximino Kulkarni MD Work Phone: Start: 08-24-[address] Rhina Kulkarni MD Work Phone: Comment on above: No lupus anticoagula nt was detected. Start: 08-24-2024 Lupus anticoagulant assay, platelet neutralization method Dr. Rhina Kulkarni MD Work Phone: Start: 08-24-2024 Lupus antico[address] screening test Dr. Rhina Kulkarni MD Work Phone: Start: 08-24-[address] Ashlie FLOYD Work Phone: Start: 08-24-2024 Serum IgM anticardio lipin measurement Dr. Rhina Kulkarni MD Work Phone: Comment on above: Negative: <13 Indete rminate: 13 - 20 Low-Med Positive: >20 - 80 High Positive: >80Performed at: - [facility] [address] [id number] Director: Blue Araya MD, Phone: [phone] at: [facility] [id number] Director: Charles Daigle PhD, Phone: [phone] Start: 08-22-2024 Total iron binding capacity measurement Dr. Rhina Kulkarni MD Work Phone: Start: 04-16-2023 CT of head without contrast TEAM OTR TRUCK DRIVER-C Tonny Costa TEAM OTR TRUCK DRIVER Work Phone: Start: 04-07-2023 X-ray of cervical spine TEAM OTR TRUCK DRIVER-C Tonny Costa TEAM OTR TRUCK DRIVER Work Phone: Start: 11-22-2021 Plain chest X-ray No Pr imary Care Physician Start: 07-08-2021 Myringotomy,Tubes (Bilateral) No Primary Care Physician Start: 06-13-2021 End: 06-13-2021 Bacteria identification test No Primary Care Physician Start: 05-28-2021 CT of soft tissues o f neck with contrast No Primary Care Physician Start: 02-04-2021 Investigation of transfusion reaction No Primary Care Physician Start: 02-04-2021 Microbial culture, routine No Primary Care Physician H/O: section H/O sectio n No Primary Care Physician Comment on above: plan repeat tonight due to painful contractions. Plan of Treatment Date Care Activity Detail Author Start: 08-24-2024 Beta 2 glycoprotein 1 Ab IgA and IgG and IgM panel - Serum [facility] Start: 08-24-2024 Cardiolipin IgG and IgM panel - Serum [facility] Start: 08-24-2024 CBC W Auto Different ial panel - Blood [facility] Start: 08-24-2024 Lupus anticoagulant assay [facility] Start: 08-24-2024 Thyroid stimulating hormone measurement [facility] Start: 04-07-2023 Patient referral [facility] Work Phone: Start: 03-31-2023 Iv infusion therapy/prophylaxis /dx 1st to 1 hr THER/PROPH/DIAG IV INF INIT [facility] Start: 01-13-2023 Patient referral [facility] Work Phone: Start: 12-11-2021 Patient referral [facility] Work Phone: Start: 06-17-2021 Patient referral [facility] Work Phone: Beta 2 glycoprotein 1 IgA Ab [Presence] in Serum [facility] Beta 2 glycoprotein 1 IgG Ab [Presence] in Serum [facility] Beta 2 glycoprotein 1 IgM Ab [Presence] in Serum [facility] Cardiolipin IgG Ab [Units/volume] in Serum or Plasma [facility] Cardiolipin IgM Ab [Units/volume] in Serum or Plasma [facility] Erythrocyte mean corpuscular volume determination [facility] Hematocrit [Volume Fraction] of Blood [facility] Hemoglobin [Mass/vol ume] in Blood [facility] Leukocytes [#/volume ] in Blood [facility] Lupus anticoagulant screening test [facility] Mean corpuscular hem oglobin concentration determination [facility] Mean corpuscular hem oglobin determination [facility] Measurement of respi ratory function [facility] Work Phone: Neutrophil count [facility] Neutrophil percent differential count [facility] Partial thromboplast in time ratio [facility] Patient Education [facility] Work Phone: Patient referral [facility] Work Phone: Platelets [#/volume] in Blood [facility] Red blood cell count [facility] Red cell distributio n width determination [facility] Streptococcus pyogen es Ag [Presence] in Throat by Rapid immunoassay [facility] Thrombin time [facility] Immunizations Immunization Date Immunization Notes Care Provider [facility] 10-22-2020 tetanus toxoid, redu ronn diphtheria toxoid, and acellular pertussis vaccine, adsorbed No Primary Care Physician [facility] 10-22-2020 diphtheria, tetanus toxoids and acellular pertussis vaccine, unspecified formulation No Primary Care Physician [facility] Work Phone: 09-05-2017 measles, mumps and rubella virus vaccine No Primary Care Physician [facility] 07-31-2017 tetanus toxoid, redu ronn diphtheria toxoid, and acellular pertussis vaccine, adsorbed No Primary Care Physician [facility] Payers Date Payer Category Payer Unknown [id number] 2023 Medicaid [id number] 2023 Self-pay [id number] 2023 Unknown [id number] Unknown [id number] Unknown [id number] Unknown [id number] Unknown [id number] 2.16.8 [id number] Unknown [id number] 2.16.8 [id number] Unknown [id number] 2.16.8 [id number] Unknown [id number] 2.16.8 [id number] Unknown [id number] 2.16.8 [id number] Unknown [id number] 2.16.8 [id number] Unknown [id number] 2.16.8 [id number] Unknown [id number] 2.16.8 [id number] Unknown [id number] 2.16.8 [id number] Unknown [id number] 2.16.8 [id number] Unknown [id number] 2.16.8 [id number] Social History Date Type Detail Facility [facility] Work Phone: Start: 05-28-2021 End: 05-28-2023 Tobacco smoking status NHIS Unknown if ever smoked [facility] Start: 09-03-2017 None [facility] Start: 01-04-2018 Cigarettes [facility] Start: 1995 Sex Assigned At Female [facility] Start: 08-24-2024 Tobacco smoking stat us ARIS Never smoked tobacco (finding) [facility] Medical Equipment Procedure Code Equipment Code Equipment Origin al Text Equipment Identifier Dates TUBE,PAU MARIO IN VENT FDA Start: 07-08-2021 TUBE,PAU MARIO IN VENT FDA Start: 07-08-2021 TUBE,PAU MARIO IN VENT FDA Start: 07-08-2021 TUBE,PAU MARIO IN VENT FDA Start: 07-08-2021 TUBE,PAU MARIO IN VENT FDA Start: 07-08-2021 TUBE,PAU MARIO IN VENT FDA Start: 07-08-2021 TUBE,PAU MARIO IN VENT FDA Start: 07-08-2021 TUBE,PAU MARIO IN VENT FDA Start: 07-08-2021 TUBE,PAU MARIO IN [facility]ENT FDA Start: 07-08-2021 TUBE,PAU MARIO IN VENT FDA Start: 07-08-2021 TUBE,PAU MARIO IN VENT FDA Start: 07-08-2021 TUBE,PAU MARIO IN VENT FDA Start: 07-08-2021 TUBE,PAU MARIO IN VENT FDA Start: 07-08-2021 TUBE,PAU MARIO IN VENT FDA Start: 07-08-2021 TUBE,PAU MARIO IN VENT [facility] Start: 07-08-2021 TUBE,PAU MARIO IN [facility] Start: 07-08-2021 TUBE,PAU MARIO IN [facility] Start: 07-08-2021 Mental Status Date Assessment Result Facility 03-31-2023 Cognitive function Voice/Name [facility] Work Phone: 07-08-2021 Cognitive function Level Of Cons ciousness Appropriate;Drowsy [facility] Work Phone: 07-08-2021 Cognitive function Voice/Name [facility] Work Phone: Clinical Notes 06-03-2023 to 08-30-2024 Note Date & Type Note Facility 08-30-2024 Radiology Diagnostic study note [facility] Imaging Services [address] [place], [place] [address] Pelvic w/ Transvaginal MR#: [id number] Acct: [id number] Name: JANETTE CAMPO AUGUST Rep #: [id number] : 1995 F 29 From: Lali Delacruz MD PCP: Dr. Rhina Kulkarni MD Status: REG CLI Study:Pelvic w/ Transvaginal Date of Exam: 08/30/24 Exam# [id number] Ordering Dr: Cheryle Melgoza MD PROCEDURE: PELVIC W/ TRANSVAGINAL 08/30/2024 REASON FOR EXAM: ABNORMAL UTERINE BLEEDING TECHNIQUE: PELVIC W/ TRANSVAGINAL with grayscale and color Doppler COMPARISON: Pelvic ultrasound on 08/21/2019 FINDINGS: Measurements: Uterus: 9.5 x 5.5 x 6.8 cm for volume of 187.1 mL Endometrial Thickness: 0.4 cm Right Ovary: 2.6 x 1.8 x 1.8 cm for volume of 4.6 mL Left Ovary: 2.4 x 1.2 x 1.6 cm for volume of 2.4 mL Uterus: Anteverted. Normal contour and myometrial echotexture. Nabothian cysts at the cervix. Endometrium: Normal echotexture. Right ovary: Normal size and echotexture. Left ovary: Normal size and echotexture. Other adnexal findings: None. Cul-de-sac: No free intraperitoneal fluid identified. Color Doppler: Normal color flow doppler signal at both ovaries. US/Pelvic w/ Transvaginal IMPRESSION: NORMAL TRANSABDOMINAL AND TRANSVAGINAL PELVIC ULTRASOUND WITH DOPPLER. Reading Location: [id number] CC: Dr. Rhina Kulkarni MD; Dr. Cheryle Meza MD ~ Stunner: Signed [facility] 08-24-2024 Evaluation note Diagnosis Onset Date Resolution Abnormal uterine bleeding acute August 24, 2024 11:09am Recurrent loss acute August 24, 2024 11:09am [facility] Work Phone: 1(302) 222-387106-18-2025 Evaluation note* Diagnosis Onset Date Resolution Status Admit Date Abnormal uterine bleeding acute August 24, 2024 11:09am Recurrent loss acute August 24, 2024 11:09am Sore throat resolved October 05 8:24am [facility] Work Phone: 1(458) 524-639303-27-2024 Discharge summary Author Sriram Fanam [facility] June 03, 2023 11:49am Note Date/Time June 03, 2023 11: 49am [facility] Physical Therapy [facility] [address] [place] [address]. [address] [place] [address] / REHABILITATION SERVICES DISCHARGE SUMMARY MR#: [id number] Acct: [id number] Name: JANETTE CAMPO Rep #: [id number] : 1995 28 From: Sriram Esqueda DPT, OCS, CSCS Referring Dr.: Dr. Rhina Kulkarni MD Status: REG RCR [facility] Discharge Summary D/C summary: It has been my pleasure to treat JANETTE CAMPO referred by Dr. Rhina Kulkarni MD, with the diagnosis of CONCUSSION, HEAD INJURY AND NECK PAIN for a total of 12 visit(s). Discharge Date: 06/03/23 Please see the following information for a summary of their discharge status. Subjective Subjective: So much better due to the exercises. Doing exercises without issues. Walked two miles without an issue. Only problem left is tightness in neck after exercises or carrying heavy trays at work. Some pain for a few seconds with lifting. Sleeping is good. No CLEMENTS. No dizzyness in a long time. No f/u with doctor. Activities: Life is normal Wants to get back to gym and feels like she could. Pain CLEMENTS: Pain Intensity (Out of 10): 0 neck and UT: Pain Intensity (Out of 10): 6 Overall Improvement % Improvement: 98 Objective Objective/Function: Full aROM cerevical spine with just some stiffness end rangeof extension. UE AROM WFL and strength at 4/5 without myotomal problems. No CLEMENTS or dizzy symptoms lately. Posture is still forward head but correctable with VC Goals Goal 1:: DECREASE C/O HEAD AND NECK SYMPTOMS BY AT LEAST 75% TO EASE ADL'S. Goal Progress: Goal Met Goal 2:: RESTORE FULL CERVICAL ROM ALL PLANES TO ASSIST IN RETURN TO PLOF Goal Progress: Goal Met Goal 3:: PATIENT WILL HAVE FULL JOSE D UE ROM ALL PLANES TO EASE ADL'S Goal Progress: Goal Met Goal 4:: RESTORE FULL STRENGTH JOSE D UE'S TO ASSIST WITH RETURN TO PLOF Goal Progress: Goal Met Goal 5:: PATIENT WILL SCORE AT LEAST 8 POINTS BETTER ON NECK OSWESTRY TO SHOW IMPROVED FUNCTION Goal Progress: Goal Met Goal 6:: PATIENT WILL BE INDEP WITH A HEP FOR CONTINUED IMPROVEMENT ONCE FORMAL PHYSICAL THERAPY CONCLUDES. Goal Progress: Goal Met Plan Plan: d/c to HEP./gym D/C Information d/c sentence: If there are questions or concerns regarding this patient's physical therapy, please feel free to call me at [phone]. Thank you for the referral of thispatient. Sincerely, Sriram Esqueda, LIZ, OCS, CSCS Balance/Gait/Functional tests Balance/Special Test Scores Functional Gait Assessment Score: 29 % Disability: 3.3400 Oswestry Neck Score: 2 Improvement % Improvement: 98 <Electronically signed by Sriram Esqueda DPT, MISSY, CSCS> 06/03/23 [id number] CC: Dr. Rhina Kulkarni MD ~ EBG Signed [facility] Work Phone: evaluation note* Diagnosis Onset Date Resolution Status Infection of obstetric surgi florin wound, superficial incisional site acute Dizziness acute Headache acute exam acute [facility] Work Phone: Evaluation note* Diagnosis Onset Date Resolution Status exam acute Asthma acute Depression acute GI bleeding acute Iron deficiency anemia acute Obesity acute Anemia resolved [facility] Work Phone: Evaluation note* Diagnosis Onset Date Resolution Status Asthma acute Depression acute GI bleeding acute Iron deficiency anemia acute Obesity acute Anemia resolved [facility] Work Phone: Evaluation note* Diagnosis Onset Date Resolution Status Irritable bowel syndrome with diarrhea chronic Acute asthma exacerbation no neactive Iron deficiency anemia acute URI (upper respiratory infection) noneactive Vitamin deficiency noneactiv e Acute asthma exacerbation no neactive [facility] Work Phone: evaluation note* Diagnosis Onset Date Resolution Status Irritable bowel syndrome with diarrhea chronic Acute asthma exacerbation no neactive Iron deficiency anemia acute URI (upper respiratory infection) noneactive Vitamin deficiency noneactiv e Acute asthma exacerbation no neactive Asthma acute Post-viral cough syndrome no neactive Asthma acute GERD (gastroesophageal reflux disease) acute Obesity acute [facility] Work Phone: Evaluation note* Diagnosis Onset Date Resolution Status Acute sinusitis resolved Iron deficiency anemia acute Immunization declined noneac tive Establishing care with new doctor, encounter for noneactive Mild intermittent asthma in adult without complication noneactive Moderate anxiety noneactive Morbid obesity with BMI of 40.0-44.9, adult noneactive Elevated cholesterol with elevated triglycerides noneactive Vitamin D deficiency noneact daphne [facility] Work Phone: Evaluation note* Diagnosis Onset Date Resolution Status Iron deficiency anemia acute Immunization declined noneac tive Establishing care with new doctor, encounter for noneactive Mild intermittent asthma in adult without complication noneactive Moderate anxiety noneactive Morbid obesity with BMI of 40.0-44.9, adult noneactive Elevated cholesterol with elevated triglycerides noneactive Vitamin D deficiency noneact daphne Iron deficiency anemia acute Mild intermittent asthma in adult without complication noneactive Moderate anxiety noneactive Morbid obesity with BMI of 40.0-44.9, adult noneactive [facility] Work Phone: Evaluation note* Diagnosis Onset Date Resolution Status Iron deficiency anemia acute Immunization declined noneac tive Establishing care with new doctor, encounter for noneactive Mild intermittent asthma in adult without complication noneactive Moderate anxiety noneactive Morbid obesity with BMI of 40.0-44.9, adult noneactive Elevated cholesterol with elevated triglycerides noneactive Vitamin D deficiency noneact daphne Iron deficiency anemia acute Mild intermittent asthma in adult without complication noneactive Moderate anxiety noneactive Morbid obesity with BMI of 40.0-44.9, adult noneactive Concussion noneactive Head injury noneactive Neck pain noneactive [facility] Work Phone: Evaluation note* Diagnosis Onset Date Resolution Status Iron deficiency anemia acute Mild intermittent asthma in adult without complication noneactive Moderate anxiety noneactive Morbid obesity with BMI of 40.0-44.9, adult noneactive Concussion noneactive Head injury noneactive Neck pain noneactive Influenza due to influenza virus, type B acute Sinobronchitis chronic [facility] Work Phone: evaluation noteNo assessment information available [facility] Work Phone: Reason for referral (narrative)No reason for referral information availableGl[facility] Work Phone: Summary Purpose Family History No Family History Records Found Relationship Condition Age at Onset Recorded Date/T norma father Epilepsy Unknown Migraine headache Unknown mother Arthritis Unknown Anxiety Unknown sister Anxiety Unknown Advance Directives No Advanced Directives Records Found Advance Directive Response Recorded Date/ Time Advance Directives No December 24, 2020 12:07pm Living Will No May 28, 2021 5:18am Power of Gis Software Engineer No May 28 5:18am Advance Directive Response Recorded Date/ Time Advance Directives No December 24, 2020 12:07pm Living Will No July 05, 2021 2:47pm Power of Gis Software Engineer No July 05 2:47pm Advance Directive Response Recorded Date/ Time Advance Directives No November 2:33pm Living Will No November 19, 2021 2:33pm Power of Gis Software Engineer No November 2:33pm Advance Directive Response Recorded Date/ Time Advance Directives No November 1:33pm Living Will No November 19, 2021 1:33pm Power of Gis Software Engineer No November 1:33pm Advance Directive Response Recorded Date/ Time Advance Directives No August 22 12:25pm Chief Complaint and Reason for Visit Chief Complaint incision check/odor dizzy,swelling,headache 6wk pp / declined iud sore throat Reason for Visit Infection of obstetr ic surgical wound, superficial incisional site Dizziness Headache exam Chief Complaint 6wk pp / declined iu d sore throat 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, NPP SENT Reason for Visit Asthma Depression GI bleeding Iron deficiency anemia Obesity Anemia Chief Complaint COUGH ASTHMA AND STOMACH PAIM LAB RESULTS CONCERNS EORDER- cough Reason for Visit Irritable bowel synd patric with diarrhea Acute asthma exacerbation Iron deficiency anemia URI (upper respiratory infection) Vitamin deficiency Acute asthma exacerbation Chief Complaint COUGH ASTHMA AND STOMACH PAIM LAB RESULTS CONCERNS EORDER- cough 6 wk FU Asthma Reason for Visit Irritable bowel synd patric with diarrhea Acute asthma exacerbation Iron deficiency anemia URI (upper respiratory infection) Vitamin deficiency Acute asthma exacerbation Asthma Post-viral cough syndrome Asthma GERD (gastroesophageal reflux disease) Obesity Chief Complaint SORE THROAT EST NEW PT - FORMER [facility] PT Reason for Visit Acute sinusitis Iron deficiency anemia Immunization declined Establishing care with new doctor, encounter for Mild intermittent asthma in adult without complication Moderate anxiety Morbid obesity with BMI of 40.0-44.9, adult Elevated cholesterol with elevated triglycerides Vitamin D deficiency Chief Complaint EST NEW PT - FORMER [facility] PT MED FU Reason for Visit Iron deficiency anem ia Immunization declined Establishing care with new doctor, encounter for Mild intermittent asthma in adult without complication Moderate anxiety Morbid obesity with BMI of 40.0-44.9, adult Elevated cholesterol with elevated triglycerides Vitamin D deficiency Iron deficiency anemia Mild intermittent asthma in adult without complication Moderate anxiety Morbid obesity with BMI of 40.0-44.9, adult Chief Complaint EST NEW PT - FORMER [facility] PT MED FU FERRLECIT 125MG Reason for Visit Iron deficiency anem ia Immunization declined Establishing care with new doctor, encounter for Mild intermittent asthma in adult without complication Moderate anxiety Morbid obesity with BMI of 40.0-44.9, adult Elevated cholesterol with elevated triglycerides Vitamin D deficiency Iron deficiency anemia Mild intermittent asthma in adult without complication Moderate anxiety Morbid obesity with BMI of 40.0-44.9, adult Chief Complaint EST NEW PT - FORMER [facility] PT MED FU FERRLECIT 125MG FALL/CLEMENTS/NECK PAIN XRAY INJURY OF HEAD CONCUSSION/NECK PAIN RX HERE Reason for Visit Iron deficiency anem ia Immunization declined Establishing care with new doctor, encounter for Mild intermittent asthma in adult without complication Moderate anxiety Morbid obesity with BMI of 40.0-44.9, adult Elevated cholesterol with elevated triglycerides Vitamin D deficiency Iron deficiency anemia Mild intermittent asthma in adult without complication Moderate anxiety Morbid obesity with BMI of 40.0-44.9, adult Concussion Head injury Neck pain Chief Complaint MED FU FERRLECIT 125MG FALL/CLEMENTS/NECK PAIN XRAY INJURY OF HEAD SORE THROAT ACUTE - SEVERE CONGESTION CONCUSSION/NECK PAIN RX HERE Reason for Visit Iron deficiency anem ia Mild intermittent asthma in adult without complication Moderate anxiety Morbid obesity with BMI of 40.0-44.9, adult Concussion Head injury Neck pain Influenza due to influenza virus, type B Sinobronchitis Chief Complaint Admit Date LMP 07/17, early bleeding fu *$ 20 August 24, 2024 11:09am Reason for Visit Admit Date Abnormal uterine bleeding August 24 11:09am Recurrent loss August 24, 2024 11:09am Chief Complaint Admit Date LMP 07/17, early bleeding fu *$ 20 August 24, 2024 11:09am AUB August 30, 2024 2:17 pm Chief Complaint Admit Date LMP 07/17, early bleeding fu *$ 20 August 24, 2024 11:09am AUB August 30, 2024 2:17 pm SORE THROAT October 05, 2024 8:24 am Reason for Visit Admit Date Abnormal uterine bleeding August 24 11:09am Recurrent loss August 24, 2024 11:09am Sore throat October 05, 2024 8:24 am Additional Source Comments INFORMATION SOURCE (unrecogn ized section and content) DATE CREATED AUTHOR 09/14/2020 [facility] DATE CREATED AUTHOR AUTHOR'S JAIME SIMEON 11/26/2024 [facility] Goals (unrecognized section and content) Goals may be documented in a n alternate sectionGoals may be documented in an alternate sectionGoals may be documented in an alternate sectionGoals may be documented in an alternate sectionGoals may be documented in an alternate sectionGoals may be documented in an alternate sectionGoals may be documented in an alternate sectionGoals may be documented in an alternate sectionGoals may be documented in an alternate sectionGoals may be documented in an alternate sectionGoals may be documented in an alternate sectionGoals may be documented in an alternate sectionGoals may be documented in an alternate sectionGoals may be documented in an alternate sectionGoals may be documented in an alternate sectionGoals may be documented in an alternate sectionGoals may be documented in an alternate sectionGoals may be documented in an alternate sectionGoals may be documented in an alternate section Care Teams (unrecognized sec tion and content) Team Status: Active Member Role Status Dates No Primary Care Physician Family Provider Active Dr. Rhina Kulkarni MD Primary Care Provider Active Team Status: Inactive Member Role Status Dates Tonny Costa TEAM OTR TRUCK DRIVER, TEAM OTR TRUCK DRIVER-C Primary Care Provider, Referring P rovider Active Dr. Rhina Kulkarni MD Attending Provider Active Team Status: Inactive Member Role Status Dates Tonny Costa TEAM OTR TRUCK DRIVER, TEAM OTR TRUCK DRIVER-C Primary Care Provider, Referring P rovider Active Andrew LEOS, PA Attending Provider Active Team Status: Inactive Member Role Status Dates Dr. Rhina Kulkarni MD Primary Care Pro vider, Attending Provider, Referring Provider Active Team Status: Inactive Member Role Status Dates Tonny Costa TEAM OTR TRUCK DRIVER, TEAM OTR TRUCK DRIVER-C Referring Provider Active Dr. Rhina Kulkarni MD Primary Care Provider, Attendi ng Provider Active Team Status: Inactive Member Role Status Dates Dr. Rhina Kulkarni MD Primary Care Provider Active Dr. Cristino Harmon MD Attending Provider Active Team Status: Active Member Role Status Dates Dr. Rhina Kulkarni MD Primary Care Pro vider, Attending Provider, Referring Provider Active Team Status: Inactive Member Role Status Dates Dr. Rhina Kulkarni MD Primary Care Provider, Referri ng Provider Active Andrew LEOS, PA Attending Provider Active Team Status: Inactive Member Role Status Dates Dr. Rihna Kulkarni MD Primary Care Provider, Referri ng Provider Active Nicholas LEOS, PA Attending Provider Active Team Status: Active Member Role Status Dates Dr. Rhina Kulkarni MD Primary Care Provider Active Start: August 22, 2024 Dr. Josseline Celeste DO Attending Provider Activ e Start: August 22, 2024 Team Status: Inactive Member Role Status Dates Dr. Rhina Kulkarni MD Primary Care Provider Active Start: August 24, 2024 End: August 24, 2024 Dr. Rhina Kulkarni MD Referring Provider Active Start: August 24, 2024 End: August 24, 2024 Dr. Cheryle Meza MD Attending Provider Active Start: August 24, 2024 End: August 24, 2024 Team Status: Active Member Role Status Dates Dr. Rhina Kulkarni MD Primary Care Provider Active Start: August 24, 2024 Dr. Cheryle Meza MD Attending Provider Active Start: August 24, 2024 Dr. Cheryle Meza MD Referring Provider Active Start: August 24, 2024 Team Status: Active Member Role Status Dates Dr. Rhina Kulkarni MD Primary Care Provider Active Team Status: Inactive Member Role Status Dates Dr. Rhina Kulkarni MD Primary Care Provider Active Start: August 22, 2024 End: August 22, 2024 Dr. Josseline Celeste DO Attending Provider Activ e Start: August 22, 2024 End: August 22, 2024 Team Status: Inactive Member Role Status Dates Dr. Rhina Kulkarni MD Primary Care Provider Active Start: August 24, 2024 End: August 24, 2024 Dr. Cheryle Meza MD Attending Provider Active Start: August 24, 2024 End: August 24, 2024 Dr. Cheryle Meza MD Referring Provider Active Start: August 24, 2024 End: August 24, 2024 Team Status: Active Member Role/Relationship Status Dates Dr. Rhina Kulkarni MD Primary Care Provider Active Team Status: Inactive Member Role/Relationship Status Dates Dr. Rhina Kulkarni MD Primary Care Provider Active Start: August 22, 2024 End: August 22, 2024 Dr. Josseline Celeste DO Attending Provider Activ e Start: August 22, 2024 End: August 22, 2024 Team Status: Inactive Member Role/Relationship Status Dates Dr. Rhina Kulkarni MD Primary Care Provider Active Start: August 24, 2024 End: August 24, 2024 Dr. Rhina Kulkarni MD Referring Provider Active Start: August 24, 2024 End: August 24, 2024 Dr. Cheryle Meza MD Attending Provider Active Start: August 24, 2024 End: August 24, 2024 Team Status: Inactive Member Role/Relationship Status Dates Dr. Rhina Kulkarni MD Primary Care Provider Active Start: August 24, 2024 End: August 24, 2024 Dr. Cheryle Meza MD Attending Provider Active Start: August 24, 2024 End: August 24, 2024 Dr. Cheryle Meza MD Referring Provider Active Start: August 24, 2024 End: August 24, 2024 Team Status: Inactive Member Role/Relationship Status Dates Dr. Rhina Kulkarni MD Primary Care Provider Active Start: August 30, 2024 End: August 30, 2024 Dr. Cheryle Meza MD Attending Provider Active Start: August 30, 2024 End: August 30, 2024 Dr. Cheryle Meza MD Referring Provider Active Start: August 30, 2024 End: August 30, 2024 Team Status: Inactive Member Role/Relationship Status Dates Dr. Rhina Kulkarni MD Primary Care Provider Active Start: October 05, 2024 End: October 05, 2024 Dr. Rhina Kulkarni MD Referring Provider Active Start: October 05, 2024 End: October 05, 2024 KENDY Taylor Attending Provider Active Star t: October 05, 2024 End: October 05, 2024 Team Status: Inactive Member Role/Relationship Status Dates Dr. Rhina Kulkarni MD Primary Care Provider Active Start: October 31, 2024 End: October 31, 2024 Dr. Cheryle Meza MD Attending Provider Active Start: October 31, 2024 End: October 31, 2024 Dr. Cheryle Meza MD Referring Provider Active Start: October 31, 2024 End: October 31, 2024 Team Status: Active Member Role/Relationship Status Dates Dr. Rhina Kulkarni MD Primary Care Provider Active Start: November 02, 2024 Dr. Cheryle Meza MD Attending Provider Active Start: November 02, 2024 Dr. Cheryle Meza MD Referring Provider Active Start: November 02, 2024 Team Status: Inactive Member Role/Relationship Status Dates Dr. Rhina Kulkarni MD Primary Care Provider Active Start: November 02, 2024 End: November 02, 2024 Dr. Cheryle Meza MD Attending Provider Active Start: November 02, 2024 End: November 02, 2024 Dr. Cheryle Meza MD Referring Provider Active Start: November 02, 2024 End: November 02, 2024 FOR RECORDS PERTAINING TO PATIENTS WHO ARE [...] BE BASED ON THE PRIMARY CLINICAL RECORDS. [facility] [employer] provides no warranty or guarantee of the accuracy or completeness of information in this document.
[2024-11-26] MEDS: 0.9% Normal Saline (1000mL) 1,000 ML 999 ML IV (22:53)
[2024-11-26 23:01] LABS: Hematocrit 32.1 % (37-47); Hemoglobin 10.2 g/dL (12.0-15.0); Immature Granulocytes Count 0.030 X10^3/uL (0.0-0.0); Mean Corp Hgb Conc 31.8 g/dL (32-36); Mean Corpuscular Volume 72.0 fL (81-99); Mean Platelet Vol. 10.1 fl (6.2-12.0); NRBC Flagged by Analyzer 0 % (0-5); Platelet Count 249 K/mm3 (150-450); RBC Distribution Width CV 18.6 % (11.6-14.6); RBC Distribution Width SD 47.5 fl (35.1-43.9); Red Blood Count 4.46 M/mm3 (4.2-5.4); White Blood Count 9.9 K/mm3 (4.4-11.0)
[2024-11-26 23:42] LABS: Anion Gap 11 (5-15); BUN 13 mg/dL (4-19); BUN/Creat Ratio 15.1 RATIO (10-20); Calcium,Total 9.4 mg/dL (7.6-11.0); Carbon Dioxide 21.8 mmol/L (21.0-32.0); Chloride 102 mmol/L (98-108); Estimated Creatinine Clearance 107.33 ml/min (50-250); Glucose 92 mg/dL (70-99); Potassium 3.9 mmol/L (3.3-5.1)
[2024-11-27 00:08] VITALS: PULSE 99; RESP 16; O2SAT 98
[2024-11-27 01:28] LABS: hCG Titer Quant., Serum 53693 mIU/mL (<9 non-preg)
--- NOTE | 2024-11-27 01:40 | EDS_ITS ---
HPI HPI - Female History of Present Illness Chief Complaint: Vag Bld, Preg Informant: patient Narrative Narrative: Patient is a G4, P2 with 1 spontaneous miscarriage who states she is roughly 7 weeks . She reports she is already had an ultrasound confirming an IUP. She states her has been uneventful but that roughly 30 minutes prior to arrival she developed lower abdominal cramping and then began passing blood with small clots. She denies any history of bleeding disorder or blood thinner use. She states that because of her previous miscarriage she was concerned that that was happening again and therefore comes to the hospital for evaluation. [facility] Medical History (Updated 11/27/24 @ 01:[address] Mariusz Mueller, DO) Recurrent loss Anxiety GERD (gastroesophageal reflux disease) Abnormal uterine bleeding ASCUS favor benign Irritable bowel syndrome with diarrhea Low iron GI bleeding Oral herpes Medical History no medical history Home Medications ?Medication ?Instructions ?Recorded ?Last Taken ?Type cetirizine 10 mg capsule (Zyrtec) 10 mg PO DAILY PRN a llergy symptoms 06/16/22 Unknown History albuterol sulfate 90 mcg/actuation 1 - 2 puff inhalati on Q6H PRN 01/13/23 Unknown Rx aerosol inhaler (ProAir HFA) shortness of breath or wh eezing #8.5 grams azelastine 0.05 % eye drops 1 drp ophthalmic (eye) BID #6 mL 08/04/23 Unknown Rx docosahexaenoic acid 200 mg mg PO 11/25/24 Unknown His tory capsule ( DHA) Allergy/AdvReac Type Severity Reaction Status Date / Time No Known Allergies Allergy Verified 11/25/24 10:55 Family History Father Epilepsy Migraines Mother Arthritis Anxiety Sister Anxiety Surgical History Encounter for removal of skin lesion History of placement of ear tubes H/O myringotomy History of tonsillectomy History of esophagogastroduodenoscopy (EGD) H/O colonoscopy H/O toe surgery History of cholecystectomy delivery delivered Surgical History no surgical history Social History adopted: No household members: spouse and children housing: house number of children: 2 current occupational status: employed current occupation: [employer] current occupational exposures/hazards: Yes (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 ) pets and animals: Yes (Not managing litterbox) pets and animals: cat(s), dog(s) and farm animals history of recent travel: No sexually active: Yes Smoking Status: Never smoker second hand exposure: No alcohol intake: never substance use type: does not use well-balanced diet: daily or most days caffeine: Yes Type: coffee Number of servings: 1 eating out: 1-3 times/week during the past year weight has: decreased > 10 lbs what type of physical activity do you participate in: walking frequency: 3-4 times per week duration: 15-30 minutes/day christoph/gnosticist: Sabianism seatbelt use: always do you feel safe at home: Yes additional social history: : [employer] ROS ROS ED Constitutional Constitutional ED: Denies chills or fever(s) ENT ENT ED: Denies sore throat Cardiovascular Cardiovascular: Denies chest pain Respiratory/Chest Respiratory/Chest: Denies cough or dyspnea Gastrointestinal Gastrointestinal: Reports abdominal pain; Denies diarrhea, nausea or vomiting Genitourinary Genitourinary ED: Reports other Details: Positive vaginal bleeding ; Denies dysuria Musculoskeletal Musculoskeletal: Denies myalgias Integumentary Denies rash Neurologic Neurologic: Denies headache(s) Psychiatric Psychiatric: Reports anxiety Hematologic/Lymphatic Hematologic/Lymphatic: Denies easy bleeding or easy bruising EXAM Physical Exam Const Vital Signs: 11/26/24 22:09 11/27/24 00:08 11/27/24 01:50 Temperature 97.1 F L 97.9 F Temperature Source Temporal Pulse Rate 108 H 99 99 Respiratory Rate 22 H 16 16 Blood Pressure 157/109 H 123/74 H Blood Pressure Mean 125 90 Pulse Ox 100 98 98 Oxygen Delivery Method Room Air Room Air Positive well nourished and well developed General Appearance ED: well developed; Negative for pallor HEENT HEENT Narrative: Normocephalic atraumatic Eyes PERRL and EOMs intact bilaterally General Eye ED: Negative for pale conjunctiva or scleral icterus Neck supple Resp normal respiratory effort and clear to auscultation bilaterally Cardio regular rate and regular rhythm GI normal to inspection, nondistended, normoactive bowel sounds, soft to palpation, non-tender, non-distended and no masses GI Narrative: No organomegaly noted Auscultation: normoactive bowel sounds Palpation: soft Back/Spine no CVA tenderness Extremity normal to inspection and full ROM Neuro oriented x3, CN's II-XII intact bilaterally and no sensory deficits noted Sensorium / Orientation: alert Psych Mood & Affect: anxious and tearful Skin no rashes or lesions noted and no wounds Skin Narrative: Capillary refill is less than 3 seconds General Skin Exam: Negative for jaundice or pallor MDM MDM MDM Narrative Medical decision making narrative: Patient arrived to the ER hypertensive and tachycardic but was noticeably anxious and crying. She reported a previous miscarriage and reported vaginal bleeding with clot production as well as abdominal cramping just 30 minutes to an hour ago. Based on this past history and her symptoms this evening there is high concern for a repeat miscarriage. Secondary to this basic labs were obtained as well as a transvaginal ultrasound. Previous chart review reveals that her blood type is A positive and therefore there is no need for RhoGAM. Blood work revealed a hCG value of approximately 54,000. Otherwise there is no signs of acute kidney injury thrombocytopenia or severe anemia. The ultrasound noted a IUP with heartbeat of 150 bpm therefore this ultrasound indicates her symptoms are associated with a threatened miscarriage but not a spontaneous miscarriage. Therefore at this time patient's vitals have drastically improved after her anxiety has been alleviated and her abdomen is soft and nonsurgical. Therefore there is no need for emergent HANDHOLE MACHINE OPERATOR consultation and the patient can follow-up as an outpatient. History & Record Review Discussion w/independent historian: Patient Lab Data Attestation: I reviewed the patient's lab results. Labs: Laboratory Results - last 24 hr 11/26/24 22:46 WBC 9.9 RBC 4.46 Hgb 10.2 L Hct 32.1 L MCV 72.0 L MCH 22.9 L MCHC 31.8 L RDW Std Deviation 47.5 H RDW Coeff of Shania 18.6 H Plt Count 249 MPV 10.1 Immature Gran % (Auto) 0.300 Neut % (Auto) 58.7 Lymph % (Auto) 31.9 Sunflower % (Auto) 7.7 Eos % (Auto) 1.1 Baso % (Auto) 0.3 Absolute Neuts (auto) 5.8 Absolute Lymphs (auto) 3.15 Nucleated RBC % 0 Sodium 135 Potassium 3.9 Chloride 102 Carbon Dioxide 21.8 Anion Gap 11 BUN 13 Creatinine 0.88 Estim Creat Clear Calc 107.33 Est GFR (MDRD) Non-Af 91 BUN/Creatinine Ratio 15.1 Glucose 92 Calcium 9.4 HCG, Quant 00709 H Radiography Diagnostic Testing: Clinical Impression(s) from Imaging Studies Obstetrics Ultrasound 11/26/24 22:26 IMPRESSION: Live intrauterine with a gestational age of 7 weeks 4 days. The estimated sonographic delivery date is: 07/11/2025. Complete anatomical assessment should be performed at 19-20 wks. Reading Location: [facility] Discharge Plan Triage Chief Complaint: Vag Bld, Preg ED Provider: Mariusz Mueller Dx/Rx/DC Orders Clinical Impression: Threatened miscarriage Instructions: Miscarriage Threatened Prescriptions: No Action Zyrtec 10 mg capsule 10 mg PO DAILY PRN (Reason: allergy symptoms) albuterol sulfate [ProAir HFA] 90 mcg/actuation HFA aerosol inhaler 1 - 2 puff inhalation Q6H PRN (Reason: shortness of breath or wheezing) Qty: 8.5 1RF azelastine 0.05 % drops 1 drp ophthalmic (eye) BID Qty: 6 0RF DHA 200 mg capsule PO Primary Care Provider: Rhina Kulkarni Referrals: Rhina Kulkarni MD [Primary Care Provider, Internal Medicine] Cheryle Meza MD [Med Staff - Active Staff, Obstetrics-Gynecology (OBGYN)] Activity Restrictions/Additional Instructions: Please follow-up with your HANDHOLE MACHINE OPERATOR for repeat evaluation but the ultrasound showed the baby to still be within the uterus with normal heartbeat and your hCG value was 53,693. Return to the ER should you have any further concerns or worsening of symptoms Print Language: Swedish Disposition Disposition: Home, Self Care Discharge Date/Time: 11/27/24 01:51
[2024-11-27 01:50] VITALS: BP 123/74; PULSE 99; RESP 16; TEMP 36.6; O2SAT 98
== END 2024-11-27 01:51 | disposition home or self-care (01) ==
PROVIDERS: Emergency Provider Emergency Medicine; PCP Internal Medicine; Visit Provider Emergency Medicine
DX: O20.0 Threatened abortion (principal); O99.611 Diseases of the digestive system complicating pregnancy, first trimester; K58.0 Irritable bowel syndrome with diarrhea; Z3A.01 Less than 8 weeks gestation of pregnancy
CPT/HCPCS: 76817; 80048; 84702; 85025; 96360; 96361; 99283; A4216

== ENCOUNTER → 2024-12-07 | Outpatient (CLI) | payer MEDICAID, SELFPAY ==
[2024-12-09 10:08] LABS: Chlamydia By Nucleic Acid AMP Negative (Negative); Gonococcus By Nucleic Acid AMP Negative (Negative)
== END | disposition home or self-care (01) ==
LOC: LABSPEC 11:55
PROVIDERS: PCP Internal Medicine; Visit Provider Obstetrics & Gynecology
DX: O09.90 Supervision of high risk pregnancy, unspecified, unspecified trimester (principal); Z3A.00 Weeks of gestation of pregnancy not specified
CPT/HCPCS: 87086; 87088; 87491; 87591

== ENCOUNTER 2024-12-08 13:43 | Outpatient (CLI) | payer MEDICAID, SELFPAY ==
[2024-12-08 14:28] VITALS: BP 130/77; PULSE 85; RESP 16; TEMP 35.8; O2SAT 100; BMI 47.8
[2024-12-08] MEDS: proMETHazine 25 MG/ML Syringe 12.5 MG IM (15:52)
[2024-12-08 15:55] VITALS: BP 119/70; PULSE 88; RESP 16; TEMP 36.4; O2SAT 98
== END 2024-12-08 23:59 | disposition home or self-care (01) ==
LOC: MEDOUTP 13:44
PROVIDERS: PCP Internal Medicine; Referring Provider Obstetrics & Gynecology; Visit Provider Obstetrics & Gynecology
DX: E86.0 Dehydration (principal)
CPT/HCPCS: 96361; 96372; 96374; 96360; J2405

== ENCOUNTER → 2024-12-16 | Outpatient (CLI) | payer MEDICAID, SELFPAY ==
[2024-12-16 12:32] LABS: Hematocrit 32.4 % (37-47); Hemoglobin 10.2 g/dL (12.0-15.0); Immature Granulocytes Count 0.010 X10^3/uL (0.0-0.0); Mean Corp Hgb Conc 31.5 g/dL (32-36); Mean Corpuscular Volume 72.0 fL (81-99); Mean Platelet Vol. 10.2 fl (6.2-12.0); NRBC Flagged by Analyzer 0 % (0-5); Platelet Count 215 K/mm3 (150-450); RBC Distribution Width CV 18.6 % (11.6-14.6); RBC Distribution Width SD 47.5 fl (35.1-43.9); Red Blood Count 4.50 M/mm3 (4.2-5.4); White Blood Count 5.5 K/mm3 (4.4-11.0)
[2024-12-16 13:23] LABS: HIV Nonreactive (Nonreactive); Hepatitis B Surface Antigen Nonreactive (Nonreactive); Hepatitis C Antibody Nonreactive (Nonreactive); Syphilis Antibodies Nonreactive (Nonreactive)
== END | disposition home or self-care (01) ==
PROVIDERS: PCP Internal Medicine; Visit Provider Obstetrics & Gynecology
DX: O09.90 Supervision of high risk pregnancy, unspecified, unspecified trimester (principal); O99.210 Obesity complicating pregnancy, unspecified trimester; Z3A.00 Weeks of gestation of pregnancy not specified
CPT/HCPCS: 36415; 83036; 85025; 86703; 86762; 86780; 86803; 86850; 86900; 86901; 87340

== ENCOUNTER → 2025-01-30 | Outpatient (CLI) | payer MEDICAID, SELFPAY ==
[2025-01-30 16:45] LABS: Hematocrit 32.1 % (37-47); Hemoglobin 10.2 g/dL (12.0-15.0); Immature Granulocytes Count 0.020 X10^3/uL (0.0-0.0); Mean Corp Hgb Conc 31.8 g/dL (32-36); Mean Corpuscular Volume 74.5 fL (81-99); Mean Platelet Vol. 10.8 fl (6.2-12.0); NRBC Flagged by Analyzer 0 % (0-5); Platelet Count 207 K/mm3 (150-450); RBC Distribution Width CV 17.3 % (11.6-14.6); RBC Distribution Width SD 45.9 fl (35.1-43.9); Red Blood Count 4.31 M/mm3 (4.2-5.4); White Blood Count 7.5 K/mm3 (4.4-11.0)
== END | disposition home or self-care (01) ==
PROVIDERS: PCP Internal Medicine; Visit Provider Nurse Practitioner Women's Health
DX: O99.019 Anemia complicating pregnancy, unspecified trimester (principal); Z3A.00 Weeks of gestation of pregnancy not specified
CPT/HCPCS: 36415; 85025

== ENCOUNTER 2025-02-03 03:47 | Emergency (ER) | payer MEDICAID, SELFPAY ==
[2025-02-03 03:47] VITALS: BP 141/97; PULSE 112; RESP 20; TEMP 36.1; O2SAT 100; BMI 48.4
--- OUTSIDE RECORDS SUMMARY | 2025-02-03 04:25 | XMS RPT_ITS | CCD ---
Author Organization [facility] Care Team Providers Care Cruise Director Name Role Phone Care Physician, No Primary Primary Care Provider Unavailable Care Physician, No Primary Referring Provider Un available [place] [employer], [employer]-C X[place] Attending Provider [phone] Dr. Josseline Celeste Attending Provider [phone] Care Physician, No Primary Primary Care Provider Unavailable Care Physician, No Primary Referring Provider Un available Dr. Josseline Celeste Attending Provider [phone] Dr. Alondra Ryan Attending Provider [phone] Care Physician, No Primary Primary Care Provider Unavailable Care Physician, No Primary Referring Provider Un available Care Physician, No Primary Referring Provider Un available [place] [employer], [employer]-C [place] Attending Provider [phone] Dr. Alondra Ryan Primary Care Provider [place] NAV[employer] D[employer], [employer] [place] Primary Care Provider [place] NAVY DIVER, [employer] DIVER-C [place] Referring Provider [phone] Care Physician, No Primary Referring Provider Un available [place] NAV[employer] DIVER, [employer] DIVER-C [place] Attending Provider [phone] Dr. Alondra Ryan Primary Care Provider [place] NAV[employer] DIVER, [employer] DIVER-C [place] Primary Care Provider [place] [employer] DIVER, [employer] [place] Referring Provider [phone] Dr. Alondra Ryan Referring Provider [phone] Dr. Antione Sofia Attending Provider [place] [employer], [employer] [place] Primary Care Provider [place] [employer] DIVER, [employer] [place] Referring Provider [phone] DERIC Guevara Attending Provider [phone] Rhina Kulkarni Attending Provider [phone] [place] NAV[employer] DIVER, NAV[employer] DIVER-C [place] Primary Care Provider [place] [employer] DIVER, [employer] [place] Referring Provider [phone] Dr. Rhina Kulkarni Primary Care Provider Dr. Rhina Kulkarni Referring Provider [phone] Dr. Cristino Harmon Attending Provider [phone] Igor NAVY DIVER, NAVY DIVER-C [place] Referring Provider [phone] Dr. Rhina Kulkarni Primary Care Provider Dr. Rhina Kulkarni Attending Provider [phone] Dr. Rhina Kulkarni Referring Provider [phone] Dr. Cristino Harmon Attending Provider [phone] DERIC Guevara Attending Provider [phone] DERIC Feliciano Attending Provider [phone] Dr. Rhina Kulkarni MD Primary Care Provider [phone] Dr. Josseline Celeste DO Attending Provider Cayla FLOYD, Dr. Lantigua Referring Provider Derrick FLOYD, Dr. Lobato Attending Provider Dr. Cheryle Meza MD Referring Provider [phone] Elicia NAV[employer] DIVER-C, Fabrizio Attending Provider Cayla FLOYD, Dr. Lantigua Primary Care Physician Dr. Josseline Celeste DO Attending Physician Derrick FLOYD, Dr. Lobato Attending Physician Elicia NAV[employer] DIVER-C, Fabrizio Attending Physician Yoon Wilkins CNM Attending Physician Yoon Wilkins CNM Referring Provider [phone] Kimberly Werner RN Attending Physician Unavailab eddie Mueller DO, Dr. Vee Attending Physician [phone] Dr. Mariusz Mueller DO Emergency Department Physic marianela Nancy Bucio DO, Dr. Manjarrez Referring Provider Cayla, Rhina Primary Care Unavailable Cayla, Rhina Referring Unavailable Josseline Celeste Attending Unavailabl e Mcbrides, Rhina Primary Care Unavailable Mcbrides, Rhina Referring Unavailable Roof KAELA, Jarod Vasquez Attending Unavailable VandJosseline Panda Attending Unavailabl e Mcbrides, Rhina Primary Care Unavailable Cayla, Rhina Referring Unavailable Cayla, Rhina Primary Care Unavailable Cheryle Meza Attending Unavailable Mcbrides, Rhina Primary Care Unavailable Mcbrides, Rhina Referring Unavailable Fabrizio Rubi Attending Unavailable Mcbrides, Rhina Primary Care Unavailable Mcbrides, Rhina Referring Unavailable Cheryle Meza Attending Unavailable Cayla, Rhina Primary Care Unavailable Kimberly Werner Attending Unavailable Mcbrides, Rhina Primary Care Unavailable Vande Josseline Bucio Attending Unavailabl e Mcbrides, Rhina Primary Care Unavailable Cheryle Meza Attending Unavailable PradipanthonyCheryle Referring Unavailable Mcbrides, Rhina Primary Care Unavailable Cheryle Meza Attending Unavailable Pradipanthony, Cheryle Referring Unavailable Cayla, Rhina Primary Care Unavailable Mariusz Mueller Attending Unavailable Mcbrides, Rhina Primary Care Unavailable Vande Josseline Bucio Attending Unavailabl e Cayla, Rhina Primary Care Unavailable Cheryle Meza Attending Unavailable Garcíaony, Cheryle Referring Unavailable Cayla, Rhina Primary Care Unavailable Cheryle Meza Attending Unavailable Cheryle Meza Referring Unavailable Cayla, Rhina Primary Care Unavailable Yoon Wilkins Referring Unavailable Yoon Wilkins Attending Unavailable Cayla, Rhina Primary Care Unavailable Cheryle Meza Referring Unavailable Cheryle Meza Attending Unavailable Mcbrides, Rhina Primary Care Unavailable Josseline Celeste Referring Unavailabl e Josseline Celeste Attending Unavailabl e Mcbrides, Rhina Primary Care Unavailable Cayla, Rhina Referring Unavailable Yoon Wilkins Attending Unavailable Medications Current Medications Medication Drug Class(es) Dates Sig (Normalized) Sig (Original) [id number] 200 actuat albuterol 0.09 mg/actuat metered dose inhaler (20 sources) beta2-Adrenergic Agonist Start: 12-11-2021 End: 01-13-2023 Albuterol Sulfate (Proair Hfa) 90 mcg/actuation HFA aerosol inhaler Active 1 - 2 NMA INHALATION EVERY 6 HOURS as needed for shortness of breath or wheezing 8.5 1 January 13, 2023 11:12am Complies with drug therapy Start: 12-11-2021 End: 01-13-2023 take 1 puff(s) by inhalation every six hours Albuterol Sulfate (Proair Hfa) 90 mcg/actuation HFA aerosol inhaler Active 1 - 2 PUFF INHALATION EVERY 6 HOURS 8.5 January 13, 2023 11:12am Start: 09-06-2020 End: 02-06-2021 Albuterol Sulfate 90 mcg/act uation HFA aerosol inhaler Discontinued 2 NMA INHALATION EVERY 6 HOURS as needed for shortness of breath or wheezing 8.5 3 September 06, 2020 12:00am February 06, 2021 [...] 10:21am azelastine hydrochloride 0.5 mg/ml ophthalmic solution (13 sources) Histamine-1 Receptor Antagonist Start: 08-04-2023 Azelastine 0.05 % drops Active 1 NMA OPHTHALMIC TWICE A DAY 6 0 August 04, 2023 12:00am Complies with drug therapy cetirizine hydrochloride 10 mg oral capsule (20 sources) Histamine-1 Receptor Antagonist Start: 06-16-2022 take 1 capsule by mouth once daily as needed Cetirizine (Zyrtec) 10 mg capsule Active 10 mg PO DAILY as needed for allergy symptoms June 16, 2022 12:00am Complies with drug therapy Start: 12-11-2021 End: 04-29-2022 take 1 capsule [...] 2017 12:00am April 28, 2018 5:14pm allergies docosahexaenoic acid 200 mg oral capsule (6 sources) Start: 11-25-2024 30 actuat fluticasone furoate 0.1 mg/actuat / vilanterol 0.025 mg/actuat dry powder inhaler (20 sources) Corticosteroid, beta2-Adrenergic Agonist Start: 06-17-2021 Fluticasone [...] 19, 2020 1:00am June 12, 2020 10:21am prochlorperazine 10 mg oral tablet (3 sources) Phenothiazine Start: 12-07-2024 take 1 tablet by mouth three times daily Prochlorperazine Maleate (Compazine) 10 mg tablet Active 10 mg PO THREE TIMES A DAY 30 2 December 07, 2024 12:00am Complies with drug therapy valACYclovir 500 mg oral tablet (1 source) [...] / HYDROcodone bitartrate 5 mg oral tablet (20 sources) Opioid Agonist Start: 01-11-2018 End: 01-16-2018 Hydrocodone-Acetami nophen 1 TABLET tablet Discontinued 1 {tbl} PO EVERY 8 HOURS NEEDED as needed for Pain 15 5 0 January 11, 2018 3:22pm January 15, 2018 1:00am January 16, 2018 1:10am Start: 01-11-2018 End: 01-16-2018 take 1 tablet by mouth every eight hours as needed Hydrocodone-Acetaminophen Discontinued 1 TABLET PO EVERY 8 HOURS NEEDED 15 5 January 11, 2018 3:22pm January 16, 2018 1:10am acetaminophen 325 mg / oxyCODONE hydrochloride 5 mg oral tablet (20 sources) Opioid Agonist Start: 01-11-2021 End: 01-18-2021 Oxycodone-Acetaminophen (Percocet) 5-325 mg tablet Discontinued 1 {tbl} PO Q4H as needed for pain 28 7 0 January 11, 2021 January 17, 2021 1:00am January 18, 2021 1:01am delivery delivered Encounter for delivery without indication acyclovir 400 mg oral tablet (20 sources) Herpesvirus Nucleoside Analog DNA Polymerase Inhibitor, Herpes Simplex Virus Nucleoside Analog DNA Polymerase Inhibitor, Herpes Zoster Virus Nucleoside Analog DNA Polymerase Inhibitor Start: 01-04-2018 End: 04-28-2018 take 1 tablet by mouth twice daily Acyclovir 400 MG tablet Discontinued 400 mg PO TWICE A DAY January 04, 2018 12:00am April 28, 2018 5:14pm COLD SORES ALPRAZolam 0.25 mg oral tablet (18 sources) Benzodiazepine Start: 05-07-2022 End: 06-16-2022 take 1 tablet by mouth once daily Alprazolam 0.25 mg tablet Discontinued 0.25 mg PO DAILY May 07, 2022 1:00am June 16, 2022 3:00pm amoxicillin 875 mg oral tablet (20 sources) Penicillin-class Antibacterial Start: 02-08-2021 End: 02-22-2021 take 1 tablet by mouth twice daily Amoxicillin 875 mg tablet Discontinued 875 mg PO TWICE A DAY February 08, 2021 1:00am February 21, 2021 [...] 2021 1:01am azithromycin 250 mg oral tablet (20 sources) Macrolide Antimicrobial Start: 11-22-2021 End: 12-11-2021 Azithromycin 250 mg tablet Discontinued 0 PO .COMPLEX 6 0 November 22, 2021 12:00am December 11, 2021 2:27pm Take two tablets by mouth on day one then one tablet by mouth on days 2-5 benzocaine 15 mg / menthol 10 mg oral lozenge (14 sources) Standardized Chemical Allergen Start: 05-22-2023 End: 08-04-2023 Benzocaine-Menthol (Chloraseptic Max) 15-10 mg lozenge Discontinued 1 NMA MUCOUS MEM .4 times daily as needed for sore throat 15 May 22, 2023 12:00am August 04, 2023 2:13pm Start: 05-22-2023 Benzocaine-Men thol (Chloraseptic Max) 15-10 mg lozenge Active 1 LOZENGE MUCOUS MEM .4 times daily May 22, 2023 12:00am benzonatate 200 mg oral capsule (19 sources) Non-narcotic Antitussive Start: 12-11-2021 End: 06-16-2022 Benzonatate 200 mg capsule Discontinued 200 mg PO 2 to 3 times per day as needed for cough 60 1 December 11, 2021 12:00am June 16, 2022 3:00pm brompheniramine maleate 0.4 mg/ml / dextromethorphan hydrobromide 2 mg/ml / pseudoephedrine hydrochloride 6 mg/ml oral solution (20 sources) alpha-Adrenergic Agonist, Uncompetitive I-cjrfof-V-aspartate Receptor Antagonist, Sigma-1 Agonist Start: 11-19-2021 End: 12-11-2021 Brompheniramine-Pseu doeph-Dm 2-30-10 mg/5 mL syrup Discontinued mL PO November 19, 2021 12:00am December 11, 2021 2:27pm Start: 11-19-2021 End: 12-11-2021 Wdwuystzpfsgmfs-Ssnxoemjh-Bd Discontinued ML PO November 19, 2021 12:00am [...] 12:00am busPIRone hydrochloride 5 mg oral tablet (18 sources) Start: 01-13-2023 End: 08-10-2023 take 1 tablet by mouth twice daily Buspirone 5 mg tablet Discontinued 5 mg PO TWICE A DAY 60 0 January 13, 2023 1:00am August 10, 2023 8:54am cephalexin 500 mg oral capsule (20 sources) Cephalosporin Antibacterial Start: 02-04-2021 End: 02-08-2021 take 1 capsule by mouth every twelve hours Cephalexin 500 mg capsule Discontinued 500 mg PO Q12H 14 7 0 February 04, 2021 1:00am February 10, 2021 1:00am February 08, 2021 12:43pm cholecalciferol 1.25 mg oral tablet (20 sources) Vitamin D Start: 05-07-2022 End: 06-16-2022 take 1 tablet by mouth every week Cholecalciferol (Vitamin D3) 1,250 mcg (50,000 unit) tablet Discontinued 1250 ug PO EVERY WEEK 12 0 May 20, 2022 3:03pm June 16, 2022 [...] mg/ml / guaiFENesin 20 mg/ml oral solution (20 sources) Opioid Agonist Start: 11-22-2021 End: 12-11-2021 [...] 2:27pm cyclobenzaprine hydrochloride 5 mg oral tablet (15 sources) Muscle Relaxant Start: 04-07-2023 End: 05-22-2023 take 1 tablet by mouth three times daily as needed for pain Cyclobenzaprine 5 mg tablet Discontinued 5 mg PO THREE TIMES A DAY as needed for pain 30 April 07, 2023 1:00am May 22, 2023 12:45pm dexamethasone 6 mg oral tablet (20 sources) Corticosteroid Start: 03-19-2020 End: 06-12-2020 take [...] mg PO TWICE A DAY 20 10 March 20, 2024 1:47pm March 29, 2024 1:00am March 30, 2024 1:18am Acute sinusitis, unspecified Start: 11-06-2022 End: 11-16-2022 take 1 capsule by mouth twice daily Doxycycline Hyclate 100 mg capsule Discontinued 100 mg PO TWICE A DAY 20 10 November 06, 2022 12:00am November 15, 2022 12:00am November 16, 2022 12:04am Acute sinusitis, unspecified Start: 06-16-2022 End: 06-26-2022 take 1 capsule by mouth twice daily Doxycycline Hyclate 100 mg capsule Discontinued 100 mg PO TWICE A DAY 20 10 0 June 16, 2022 12:00am June 25, 2022 12:00am June 26, 2022 12:05am Acute sinusitis, unspecified ergocalciferol 1.25 mg oral capsule (20 sources) Provitamin D2 Compound Start: 11-22-2021 End: 04-29-2022 Ergocalciferol (Vitamin D2) 1,250 mcg (50,000 unit) capsule Discontinued 30792 U PO EVERY WEEK 02 08November 22, 2021 12:00am April 29, 2022 12:25pm Start: 11-22-2021 End: 04-29-2022 take 97095 [IU] by mouth every week Ergocalciferol (Vitamin D2) Discontinued 76181 UNIT PO EVERY WEEK November 22, 2021 12:00am April 29, 2022 12:25pm ferrous gluconate 324 mg oral tablet (20 sources) Start: 11-22-2021 End: 04-29-2022 take 1 tablet by mouth once daily Ferrous Gluconate 324 mg (37.5 mg iron) tablet Discontinued 324 mg PO DAILY 90 November 22, 2021 12:00am April 29, 2022 [...] April 28, 2018 5:14pm anemia Fluad Quad [id number](65yr up)(PF) 60 mcg (15 mcg x 4)/0.5mL IM syringe (flu vac (2 sources) Start: 12-05-2020 End: 12-05-2020 inject 1 mL by intramuscular injection once Fluad Quad (65yr up)(PF) 60 mcg (15 mcg x 4)/0.5mL IM syringe (flu vac Discontinued 0.5 ML IM ONCE 0.5 December 05, 2020 12:43pm December 05, 2020 2:25pm ibuprofen 800 mg oral tablet (20 sources) Nonsteroidal Anti-inflammatory Drug Start: 01-22-2021 End: 02-01-2021 take 1 tablet by mouth three times daily as needed for pain Ibuprofen 800 mg tablet Discontinued 800 mg PO THREE TIMES A DAY as needed for pain 30 10 0 January 22, 2021 1:00am January 31, 2021 1:00am February 01, 2021 1:01am Inhalational Spacing Device (Aerochamber Mv) spacer (20 sources) Start: 11-15-2021 End: 04-29-2022 Inhalational Spacing [...] directed meclizine hydrochloride 25 mg oral tablet (20 sources) Antiemetic Start: 06-12-2020 End: 07-12-2020 take 1 tablet by mouth three times daily as needed for dizziness Meclizine 25 mg tablet Discontinued 25 mg PO THREE TIMES A DAY as needed for dizziness 90 30 0 June 12, 2020 12:00am July 11, 2020 12:00am July 12, 2020 12:01am methocarbamol 500 mg oral tablet (20 sources) Muscle Relaxant Start: 01-22-2021 End: 02-01-2021 take 1 tablet by mouth every eight hours as needed for pain Methocarbamol 500 mg tablet Discontinued 500 mg PO Q8H as needed for muscle pain 20 10 0 January 22, 2021 1:00am January 31, 2021 1:00am February 01, 2021 1:01am montelukast 10 mg oral tablet (19 sources) Leukotriene Receptor Antagonist Start: 12-11-2021 End: 04-29-2022 take 1 tablet by mouth once daily in the evening Montelukast 10 mg tablet Discontinued 10 mg PO EVERY EVENING December 11, 2021 12:00am April 29, 2022 12:25pm naproxen 500 mg oral tablet (20 sources) Nonsteroidal Anti-inflammatory Drug Start: 01-11-2021 End: 01-21-2021 take 1 tablet by mouth twice daily as needed for pain Naproxen 500 mg tablet Discontinued 500 mg PO TWICE A DAY as needed for pain 20 10 January 11, 2021 12:00am January 20, 2021 1:00am January 21, 2021 1:01am norethindrone acetate 5 mg oral tablet (20 sources) Start: 08-24-2024 End: 11-25-2024 Norethindrone Acetate 5 mg tablet Discontinued 5 mg PO .COMPLEX 30 0 August 24, 2024 12:00am November 25, 2024 10:56am 5 mg PO BID x 3 days [...] 24 hr then bid to finish Rx omeprazole 40 mg delayed release oral capsule (19 sources) Proton Pump Inhibitor Start: 12-18-2021 End: 04-29-2022 take 1 capsule by mouth once daily Omeprazole 40 mg capsule,delayed release(DR/EC) Discontinued 40 mg PO DAILY 30 December 18, 2021 12:00am April 29, 2022 12:25pm ondansetron 4 mg disintegrating oral tablet (20 sources) Serotonin-3 Receptor Antagonist Start: 10-05-2023 End: 10-21-2023 take 1 tablet by mouth every eight hours as needed for nausea and vomiting Ondansetron 4 mg tablet,disintegratin g Discontinued 4 mg PO Q8H as needed for nausea and vomiting 60 0 October 05, 2023 12:00am October 21, 2023 3:23pm Take 30 minutes prior to IV iron infusion Start: 04-07-2023 End: 05-22-2023 take 1 tablet by mouth every eight hours as needed for nausea and vomiting Ondansetron 4 mg tablet,disintegrating Discontinued 4 mg PO Q8H as needed for nausea and vomiting 30 April 07, 2023 1:00am May 22, 2023 12:45pm predniSONE 50 mg oral tablet (20 sources) Start: 10-05-2024 End: 11-25-2024 take 1 tablet by mouth once daily Prednisone 50 mg tablet Discontinued 50 mg PO daily 5 October 05, 2024 12:00am November 25, 2024 10:56am Start: 03-20-2024 End: 08-24-2024 take 3 tablets [...] 01, 2020 12:00am December 28, 2020 11:13am Vit,Florin 26-Pyam-Jwzoc 1 TABLET tablet (8 sources) Start: 02-09-2017 End: 04-28-2018 Vit,Florin 92-Asvf-Umsmj 1 TABLET tablet Discontinued 1 {tbl} PO DAILY February 09, 2017 1:00am April 28, 2018 5:14pm Vit,Vuls36-Iqii-Xowfv (10 sources) Start: 02-09-2017 End: 04-28-2018 take 1 tablet by mouth once daily Vit,Fwtz77-Nyhv-Kgtof Discontinued 1 TABLET PO DAILY February 09, 2017 3:19pm April 28, 2018 5:14pm Start: 02-09-2017 End: 04-28-2018 take 1 tablet by mouth once daily Vit,Tguu85-Bzsn-Qtzls Discontinued 1 TABLET PO DAILY February 09, 2017 12:00am April 28, 2018 4:14pm Start: 02-09-2017 End: 04-28-2018 take 1 tablet by mouth once daily Vit,Mwjy74-Dyrt-Sftqk Discontinued 1 TABLET PO DAILY February 09, 2017 1:00am April 28, 2018 5:14pm Vit,Wcvh20-Xepk-Iuwux 1 TABLET tablet (5 sources) Start: 02-09-2017 End: 04-28-2018 take 1 tablet by mouth once daily Vit,Rlqa89-Cnvf-Rfpye 1 TABLET tablet Discontinued 1 {tbl} PO DAILY February 09, 2017 1:00am April 28, 2018 5:14pm Start: 02-09-2017 End: 04-28-2018 take 1 tablet by mouth once daily Vit,Isbi41-Ksrz-Dbsyj 1 TABLET tablet Discontinued 1 {tbl} PO DAILY February 09, 2017 1:00am April 28, 2018 5:14pm 72 hr scopolamine 0.0139 mg/hr transdermal system (13 sources) Anticholinergic Start: 08-22-2023 End: 10-03-2023 Scopolamine Base 1 mg over 3 days patch 3 day Discontinued 1 NMA TD Every 3 Days as needed for motion sickness 4 0 August 22, 2023 12:00am October 03, 2023 10:02pm sulfamethoxazole 800 mg / trimethoprim 160 mg oral tablet (20 sources) Dihydrofolate Reductase Inhibitor Antibacterial, Sulfonamide Antimicrobial Start: 02-08-2021 End: 02-22-2021 Sulfamethoxazole -Trimethoprim (Bactrim Ds) 800-160 mg tablet Discontinued 1 {tbl} PO TWICE A DAY 28 14 0 February 08, 2021 1:00am February 21, 2021 1:00am February 22, 2021 1:02am SUMAtriptan 25 mg oral tablet (15 sources) Serotonin-1b and Serotonin-1d Receptor Agonist Start: 04-20-2023 End: 08-24-2024 take 1 tablet by mouth every two hours Sumatriptan Succinate (Imitrex) 25 mg tablet Discontinued 0 PO .COMPLEX 10 0 April 20, 2023 1:00am August 24, 2024 11:15am take 1 tab at onset of headache; if no relief may repeat 1 tab after at least 2 hrs; max = 4 tabs/24 hr PO tranexamic acid 650 mg oral tablet (13 sources) Antifibrinolytic Agent Start: 10-21-2023 End: 11-25-2024 take 2 tablets by mouth three times daily Tranexamic Acid 650 mg tablet Discontinued 1300 mg PO THREE TIMES A DAY 60 2 October 21, 2023 12:00am November 25, 2024 10:56am Problems Active Problems Problem Classification Problem Date Documented Da te Episodic/Chronic Administrative/social admission (4 sources) Persons encountering health services in other specified circumstances; Translations: [Other reasons for seeking consultation] 01-13-2023 Episodic Anxiety disorders (8 sources) Anxiety disorder, unspecified; Translations: [Anxiety state, unspecified] 01-13-2023 Chronic Asthma (20 sources) Asthma; Translations: [Unspecified asthma, uncomplicated] Chronic Comment on above: NO INHALER Cancer of cervix (20 sources) Atypical squamous cells of undetermined significance on cervical Papanicolaou smear; Translations: [Atypical squamous cells of undetermined significance on cytologic smear of cervix (ASC-US)] 01-10-2021 Episodic Comment on above: ascus hpv neg repeat pap 3 years Conditions associated with dizziness or vertigo (20 sources) Dizziness; Translations: [Dizziness and giddiness] Episodic Contraceptive and procreative management (18 sources) Patient encounter status; Translations: [Encounter for other general counseling and advice on procreation] 01-12-2023 Episodic Deficiency and other anemia (20 sources) Anemia; Translations: [Anemia, unspecified] 01-13-2023 Episodic Deficiency and other anemia (20 sources) Iron deficiency anemia; Translations: [Iron deficiency anemia, unspecified] 01-13-2023 Episodic Deficiency and other anemia (14 sources) Iron deficiency anemia, unspecified; Translations: [Iron deficiency anemia, unspecified] Episodic Deficiency and other anemia (3 sources) Anemia, unspecified; Translations: [Anemia, unspecified] Episodic Disorders of lipid metabolism (4 sources) Mixed hyperlipidemia; Translations: [Mixed hyperlipidemia] 01-13-2023 Chronic Early or threatened labor (20 sources) False labor; Translations: [False labor, unspecified] 01-10-2021 Episodic Esophageal disorders (20 sources) Gastroesophageal reflux disease; Translations: [Gastro-esophageal reflux disease without esophagitis] Chronic Comment on above: No meds Fluid and electrolyte disorders (1 source) Dehydration; Translations: [Dehydration] Onset: Episodic Gastrointestinal hemorrhage (20 sources) Gastrointestinal hemorrhage; Translations: [Gastrointestinal hemorrhage, unspecified] Episodic Headache; including migraine (13 sources) Migraine; Translations: [Migraine, unspecified, not intractable, without status migrainosus] 01-06-2024 Chronic Headache; including migraine (20 sources) Headache; Translations: [Headache] Episodic Hemorrhage during ; abruptio placenta; placenta previa (20 sources) Bleeding from female genital tract during ; Translations: [Antepartum hemorrhage, unspecified, unspecified trimester] Onset: 07-02-2020 Episodic Comment on above: [facility] Hypertension complicating ; childbirth and the puerperium (20 sources) -induced hypertension; Translations: [Gestational [-induced] hypertension without significant proteinuria, unspecified trimester] 12-14-2020 Episodic Comment on above: baseline labs WNL Influenza (15 sources) Influenza due to Influenza B virus; Translations: [Influenza due to other identified influenza virus with other respiratory manifestations] 05-22-2023 Episodic Intracranial injury (2 sources) Concussion injury of body structure; Translations: [Concussion] 04-07-2023 Episodic Menstrual disorders (14 sources) Menorrhagia; Translations: [Excessive and frequent menstruation [...] of ; puerperium affecting management of mother (20 sources) Infection of obstetric surgical wound ; [...] of ; puerperium affecting management of mother (18 sources) Deliveries by ; Translations: [Encounter for delivery without indication] 01-12-2023 Episodic Comment on above: 38 ctx JV/SM RLTCS Other complications of (20 sources) Maternal obesity complicating , childbirth and the puerperium, antepartum; Translations: [Obesity complicating , unspecified trimester] 01-10-2021 Chronic Comment on above: weekly nsts after 32 growth q 4 weeks BMI 47.8; HgBA1C ord ered w/NOB Other complications of (7 sources) Anemia during - baby not yet delivered; Translations: [Anemia complicating , unspecified trimester] Chronic Other complications of (18 sources) Anemia of ; Translations: [Anemia complicating , unspecified trimester] 01-10-2021 Chronic Comment on above: iron added needs CBC in 4 weeks Other complications of (1 source) Obesity complicating , unspecified trimester; Translations: [Obesity complicating , unspecified trimester] Onset: Chronic Other complications of (20 sources) Reduced movement; Translations: [Decreased movements, third trimester, not applicable or unspecified] 12-05-2020 Episodic Comment on above: reactive NST triage 11/07, nl pree labs done due to CLEMENTS Other complications of (20 sources) Short cervical length in ; Translations: [Cervical shortening, second trimester] 12-05-2020 Episodic Comment on above: MFM consult, no funn eling and CL 48.0mm Other complications of (20 sources) High risk ; Translations: [Supervision of high risk , unspecified, unspecified trimester] 01-10-2021 Episodic Comment on above: PRR JIM: , boy Ulices PC: Zahra Spouse: Jonah , JIM 07/11/25, PC: Zahra & Ulices, : Jonah Other complications of (20 sources) H/O: depression; Translations: [History of depression, currently ] 01-10-2021 Episodic Other complications of (9 sources) H/O: miscarriage; Translations: [Supervision of with other poor reproductive or obstetric history, unspecified trimester] 11-25-2024 Episodic Comment on above: x1; August 2024 Other complications of (6 sources) Hyperemesis gravidarum; Translations: [Mild hyperemesis gravidarum] 12-07-2024 Episodic Other complications of (2 sources) Supervision of high risk , unspecified, unspecified trimester; Translations: [Supervision of high risk , unspecified, unspecified trimester] Onset: 5 Episodic Other complications of (1 source) Supervision of with other poor reproductive or obstetric history, unspecified trimester; Translations: [Supervision of with other poor reproductive or obstetric history, unspecified trimester] Onset: 5 Episodic Other complications of (1 source) Mild hyperemesis gravidarum; Translations: [Mild hyperemesis gravidarum] Onset: 5 Episodic Other female genital disorders (20 sources) Abnormal uterine bleeding; Translations: [Abnormal uterine [...] unspecified] Onset: Chronic Other female genital disorders (20 sources) Recurrent miscarriage; Translations: [Recurrent loss] 08-24-2024 Episodic Comment on above: APL panel and US ord ered Other gastrointestinal disorders (20 sources) Irritable bowel syndrome with diarrhea; Translations: [Irritable bowel syndrome with diarrhea] 05-03-2022 Chronic Other gastrointestinal disorders (3 sources) Irritable bowel syndrome with diarrhea; Translations: [Irritable bowel syndrome] Chronic Other gastrointestinal disorders (20 sources) Swallowing painful; Translations: [Dysphagia, unspecified] 06-05-2021 [...] care status; Translations: [Encounter for routine follow-up] Onset: Episodic Comment on above: genetics-low risk; n eg 14/14 carrier. nl anatomy. GBS neg Discussed genetic/ca rrier testing - undecided Other upper respiratory disease (20 sources) Acute bronchospasm; Translations: [Acute bronchospasm] 06-13-2020 Episodic Other upper respiratory infections (15 sources) Chronic sinusitis; Translations: [Chronic sinusitis, unspecified] 05-28-2023 Chronic Otitis media and related conditions (18 sources) Otitis media of right ear; Translations: [Otitis media, unspecified, right ear] 01-12-2023 Episodic Previous (1 source) Maternal care for unspecified type scar from previous delivery; Translations: [Maternal care for unspecified type scar from previous delivery] Onset: 5 Episodic Residual codes; unclassified (4 sources) Immunization not carried out because of patient refusal; Translations: [Vaccination not carried out because of patient refusal] 01-13-2023 Episodic Residual codes; unclassified (13 sources) Abnormal cytology findings; Translations: [Other nonspecific abnormal findings] 08-10-2023 Episodic Residual codes; unclassified (9 sources) H/O: hypertension; Translations: [Personal history of other complications of , childbirth and the puerperium] 11-25-2024 Episodic Comment on above: First Residual codes; unclassified (1 source) Personal history of other complications of , childbirth and the puerperium; Translations: [Personal history of other complications of , childbirth and the puerperium] Onset: 5 Episodic Residual codes; unclassified (1 source) 9 weeks gestation of ; Translations: [9 weeks gestation of ] Onset: 5 Episodic Spondylosis; intervertebral disc disorders; other back problems (2 sources) Cervicalgia; Translations: [Cervicalgia] 04-07-2023 Episodic Viral infection (20 sources) Oral herpes simplex infection; Translations: [Herpesviral gingivostomatitis and pharyngotonsillitis] 06-15-2020 Episodic Past or Other Problems Problem Classification Problem Date Documented Date Episodic/Chronic Acute bronchitis (20 sources) Acute bronchitis with bronchospasm; Translations: [Acute bronchitis, unspecified] Onset: 03-20-2024 12-09-2020 Episodic Other upper respiratory infections (20 sources) Streptococcal sore throat; Translations: [Streptococcal pharyngitis] Onset: 03-20-2024 Episodic Results Test Name Value Interpretation Reference Range Facility [employer] Office Visit Reporton 01-05-2025 Senior Research Executive Office Visit Report [facility] [address], [address] [place] [address] OFFICE VISIT Date of Service: 01/05/25 MR#: [id number] Acct: [id number] Name: JANETTE CAMPO AUGUST Rep #: [id number] : 1995 Provider: Dr. Cheryle serra MD Age/Sex: 29/F Location: [facility] Status: Signed Intake Vital Signs 08/24/24 11:13 12/07/24 10:56 12/08/24 14:28 01/05/25 14:38 Height 5 ft 5 ft 5 ft 5 ft Weight: 250 lb BMI 48.8 BP 137/86 H Intake Visit Reasons: 13wk2d OB Invoice Classification Clerk Required: No Is patient in pain?: No Allergies No Known Allergies Allergy (Verified 01/05/25 14:40) Medications ???Medication ???Instructions ???Recorded ???Confirmed ???Type cetirizine 10 mg capsule (Zyrtec) 10 mg PO DAILY PRN allergy sympto ms 06/16/22 01/05/25 History albuterol sulfate 90 mcg/actuation 1 - 2 puff inhalation Q6H PRN 01/05/25 Rx aerosol inhaler (ProAir HFA) shortness of breath or wheezing #8.5 grams azelastine 0.05 % eye drops 1 drp ophthalmic (eye) BID #6 mL 0 08/04/23 01/05/25 Rx docosahexaenoic acid 200 mg mg PO 11/25/24 01/05/25 History capsule ( DHA) prochlorperazine maleate 10 mg 10 mg PO TID #30 tabs 12/07/24 Rx tablet (Compazine) ferrous gluconate 240 mg (27 mg 240 mg PO QDAY #90 tabs 12/16/24 1 Rx iron) tablet Last Menstrual Period: 07/17/24 Zika: Zika virus screening: Negative : No PFSH PFSH Medical History Recurrent loss Anxiety GERD (gastroesophageal reflux disease) Abnormal uterine bleeding ASCUS favor benign Irritable bowel syndrome with diarrhea Low iron GI bleeding Oral herpes Surgical History Encounter for removal of skin lesion History of placement of ear tubes H/O myringotomy History of tonsillectomy History of esophagogastroduodenoscopy (EGD) H/O colonoscopy H/O toe surgery History of cholecystectomy delivery delivered Family History Father Epilepsy Migraines Mother Arthritis Anxiety Sister Anxiety Social History adopted: No household members: spouse and children housing: house number of children: 2 current occupational status: employed current occupation: [employer] current occupational exposures/hazards: Yes (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 ) pets and animals: Yes (Not managing litterbox) pets and animals: cat(s), dog(s) and farm animals history of recent travel: No sexually active: Yes Smoking Status: Never smoker Electronic Cigarette Use: not used second hand exposure: No alcohol intake: never substance use type: does not use well-balanced diet: daily or most days caffeine: Yes Type: coffee Number of servings: 1 eating out: 1-3 times/week during the past year weight has: decreased > 10 lbs what type of physical activity do you participate in: walking frequency: 3-4 times per week duration: 15-30 minutes/day christoph/restorationism: Oriental Orthodox seatbelt use: always do you feel safe at home: Yes additional social history: : Jonah - [employer] History 4 Elective abortions Hx Para 2 Spontaneous abortions 1 Hx # Term Pregnancies 2 Ectopic pregnancies Hx # Pregnancies Multiple births # of living children 2 Past Pregnancies Del. Date Name GA/Weeks Outcome Route Bth Weight Infant Gen Labor Lgth Anesthesia Del Locatn Provider FOB 09/04/17 Zahra 39 live - full term 7lbs 12oz Female epidural [facility] DM Jonah 01/09/21 Ulices 38 live - full term 7lbs 11oz Male spinal [facility] Dr. Celeste Jonah 08/07/24 4 spontaneous Jonah Delivery Date: 09/04/17 Last Updated by: Kimberly Werner RN IoL d/t GHTN; AOD at 5cm; Category 2 FHR recurrent late decelerations, Meconium fluid, Emergency csec - baby reces Delivery Date: 01/09/21 Last Updated by: Kimberly Werner RN Emergency csec HPI 13wk2d OB Details: JANETTE CAMPO is a 29 year old who presents for routine OB visit. OB Visit JIM Calculator Estimated Delivery Date Method Current WG Current Estimate 07/11/25 Ultrasound #1 13w 2d Expected Delivery Route/Plan rpt cs with JV if possible Specific Issue/Plans Covid status: [] Flu vaccine: [] Tdap vaccine: [] Rhogam: [] LARC form signed: [] Problem list reviewed and updated with the most current plan of care details and appropriate orders placed. Relevant counseling for the gestational age provided. Continue routine care and follow up unless otherwise noted in vis (more content not included)... Normal [facility] CBC W/Diff, Automatedon 10-1 0-2024 Absolute Lymph 1.82 X10 3/uL Normal 0.83-4.51 [facility] Comment on above: Performed By: #### B TS, L501.9985, L3890.6301, L509.4006, L100.0100, L3890.6006, L3890.6102, L509.8002 #### [facility] [address] [place], [address] Absolute Neut 3.2 X10 3/uL Normal 2.0-7.7 [facility] Comment on above: Performed By: #### B TS, L501.9985, L3890.6301, L509.4006, L100.0100, L3890.6006, L3890.6102, L509.8002 #### [facility] [address] [place], [address] Basophils/100 WBC (Bld) 0.2 % Normal 0-1 [facility] Comment on above: Performed By: #### B TS, L501.9985, L3890.6301, L509.4006, L100.0100, L3890.6006, L3890.6102, L509.8002 #### [facility] [address] [place], [address] Eosinophils/100 WBC (Bld) 0.7 % Normal 0-5 [facility] Comment on above: Performed By: #### B TS, L501.9985, L3890.6301, L509.4006, L100.0100, L3890.6006, L3890.6102, L509.8002 #### [facility] [address] [place], [address] Erythrocyte distribution width (RBC) [Ratio] 18.6 % High 11.6-14.6 [facility] Comment on above: Performed By: #### B TS, L501.9985, L3890.6301, L509.4006, L100.0100, L3890.6006, L3890.6102, L509.8002 #### [facility] [address] [place], [address] Hematocrit (Bld) [Volume fraction] 32.4 % Low 37-47 [facility] Comment on above: Performed By: #### B TS, L501.9985, L3890.6301, L509.4006, L100.0100, L3890.6006, L3890.6102, L509.8002 #### [facility] [address] [place], [address] Hemoglobin (Bld) [Mass/Vol] 10.2 g/dL Low 12.0-15.0 [facility] Comment on above: Performed By: #### B TS, L501.9985, L3890.6301, L509.4006, L100.0100, L3890.6006, L3890.6102, L509.8002 #### [facility] [address] [place], [address] IG% 0.200 Normal 0.0-0.9 [facility] Comment on above: Result Comment: IG% - Immature Granulocytes (promyelocytes, myelocytes and metamyelocytes) > 1% indicates that a LEFT SHIFT is Present. Performed By: #### B TS, L501.9985, L3890.6301, L509.4006, L100.0100, L3890.6006, L3890.6102, L509.8002 #### [facility] [address] [place], [address] Lymphocytes/100 WBC (Bld) 33.2 % Normal 19-41 [facility] Comment on above: Performed By: #### B TS, L501.9985, L3890.6301, L509.4006, L100.0100, L3890.6006, L3890.6102, L509.8002 #### [facility] [address] [place], [address] MCH (RBC) [Entitic mass] 22.7 pg Low 27.0-32.0 [facility] Comment on above: Performed By: #### B TS, L501.9985, L3890.6301, L509.4006, L100.0100, L3890.6006, L3890.6102, L509.8002 #### [facility] [address] [place], [address] MCHC (RBC) [Mass/Vol] 31.5 g/dL Low 32-36 [facility] Comment on above: Performed By: #### B TS, L501.9985, L3890.6301, L509.4006, L100.0100, L3890.6006, L3890.6102, L509.8002 #### [facility] [address] [place], [address] MCV (RBC) [Entitic vol] 72.0 fL Low 81-99 [facility] Comment on above: Performed By: #### B TS, L501.9985, L3890.6301, L509.4006, L100.0100, L3890.6006, L3890.6102, L509.8002 #### [facility] [address] [place], [address] Monocytes/100 WBC (Bld) 8.2 % Normal 0-10 [facility] Comment on above: Performed By: #### B TS, L501.9985, L3890.6301, L509.4006, L100.0100, L3890.6006, L3890.6102, L509.8002 #### [facility] [address] [place], [address] Neutrophils/100 WBC (Bld) 57.5 % Normal 47-70 [facility] Comment on above: Performed By: #### B TS, L501.9985, L3890.6301, L509.4006, L100.0100, L3890.6006, L3890.6102, L509.8002 #### [facility] [address] [place], [address] Nucleated RBC (Bld) [#/Vol] 0 10*3/uL Normal 0-5 [facility] Comment on above: Performed By: #### B TS, L501.9985, L3890.6301, L509.4006, L100.0100, L3890.6006, L3890.6102, L509.8002 #### [facility] [address] [place], [address] Platelet mean volume (Bld) [Entitic vol] 10.2 fL Normal 6.2-12.0 [facility] Comment on above: Performed By: #### B TS, L501.9985, L3890.6301, L509.4006, L100.0100, L3890.6006, L3890.6102, L509.8002 #### [facility] [address] [place], [address] Platelets (Bld) [#/Vol] 215 10*3/uL Normal 150-450 [facility] Comment on above: Performed By: #### B TS, L501.9985, L3890.6301, L509.4006, L100.0100, L3890.6006, L3890.6102, L509.8002 #### [facility] [address] [place], [address] RBC (Bld) [#/Vol] 4.50 10*6/uL Normal 4.2-5.4 [facility] Comment on above: Performed By: #### B TS, L501.9985, L3890.6301, L509.4006, L100.0100, L3890.6006, L3890.6102, L509.8002 #### [facility] [address] [place], [address] RDW SD 47.5 fl High 35.1-43.9 [facility] Comment on above: Performed By: #### B TS, L501.9985, L3890.6301, L509.4006, L100.0100, L3890.6006, L3890.6102, L509.8002 #### [facility] [address] [place], [address] WBC (Bld) [#/Vol] 5.5 10*3/uL Normal 4.4-11.0 [facility] Comment on above: Performed By: #### B TS, L501.9985, L3890.6301, L509.4006, L100.0100, L3890.6006, L3890.6102, L509.8002 #### [facility] [address] [place], [address] HIVon 12-16-2024 HIV Non-Reactive Normal Nonreactive [facility] Comment on above: Result Comment: Non- Reactive Reactive Repeatedly reactive samples must be confirmed according to CDC recommended confirmatory algorithms. The subresults for either HIVAG or AHIV can be used as an aid in the selection of the confirmation algorithm for reactive samples. Send out specimens with Reactive results to [facility] for confirmation. Order the HIV antibody detection and differentiation: [id number] Performed By: #### B TS, L501.9985, L3890.6301, L509.4006, L100.0100, L3890.6006, L3890.6102, L509.8002 ####[facility] [id number] [place], [address] Hemoglobin A1con 12-16-2024 HbA1c (Bld) [Mass fraction] 5.4 % Normal <=5.6 [facility] Comment on above: Result Comment: Norm al < 5.7 % Prediabetic 5.7 - 6.4 % Diabetic >or= 6.5 % Please note range changes. Performed By: #### B TS, L501.9985, L3890.6301, L509.4006, L100.0100, L3890.6006, L3890.6102, L509.8002 #### [facility] [address] [facility] [place], [place], [address] Hepatitis C Antibodyon 12-16 Hepatitis C Ab Non-Reactive Normal Nonreactive [facility] Comment on above: Result Comment: Reac tive: Presumptive evidence of antibodies to HCV. Follow CDC recommendations for supplemental testing. Non-Reactive: Antibodies to HCV were not detected; does not exclude the possibility of exposure to HCV Reactive Results are presumptive evidence of antibodies to HCV. Follow CDC recommendations for supplemental testing. Order confirmation testing: HCV Quant by PCR testing - HCVPCR #[id number] Non Reactive: < 0.8 Equivocal: >/= 0.8 to < 1.0 Reactive: >/= 1.0 The CDC requires that a reactive/equivocal HCV antibody result be sent out for confirmation. HCV Quant by PCR testing. Performed By: #### B TS, L501.9985, L3890.6301, L509.4006, L100.0100, L3890.6006, L3890.6102, L509.8002 ####[facility] [address] [place], [address] L3890.6102on 12-16-2024 HEP B Surf Ag Non-Reactive Normal Nonreactive [facility] Comment on above: Result Comment: Reac tive: Presumptive evidence of HBV. Repeatedly reactive samples must be confirmed using a neutralization test ([employer] HBsAg Confirmatory Test) Non-Reactive: HBsAg not detected; does not exclude the possibility of exposure to HBV Performed By: #### B TS, L501.9985, L3890.6301, L509.4006, L100.0100, L3890.6006, L3890.6102, L509.8002 ####[facility] [address] [place], [address] L509.4006on 12-16-2024 Rubella IgG REAC Normal Nonreactive [facility] Comment on above: Result Comment: Anti body Result: Interpretation Non-Reactive: Non-Immune Reactive: Immune The following results were obtained with the [employer] Rubella IgG assay. Results from assays of other manufacturers cannot be used interchangeably. Performed By: #### B TS, L501.9985, L3890.6301, L509.4006, L100.0100, L3890.6006, L3890.6102, L509.8002 #### [facility] [address] [place], [address] NATERAon 12-16-2024 NATURA SEE SCANNED REPORT Normal [facility] Comment on above: Performed By: #### L 900.0098 ####[facility] [address] [place], [address] Syphilis Antibodieson 2024 Syphilis Abs Non-Reactive Normal Nonreactive [facility] Comment on above: Performed By: #### B TS, L501.9985, L3890.6301, L509.4006, L100.0100, L3890.6006, L3890.6102, L509.8002 ####[facility] [address] [place], [address] Type AND Screenon 12-16-2024 Ab SCREEN GEL Negative Normal [facility] Comment on above: Order Comment: PN Performed By: #### B TS, L501.9985, L3890.6301, L509.4006, L100.0100, L3890.6006, L3890.6102, L509.8002 #### [facility] [address] [place], [address] Chlamydia/GC DAVE aptimaon CHLAMY,NUC ACID Negative Normal Negative [facility] Comment on above: Performed By: #### L 700.8000 #### [facility] [address] [place], [address] GC BY NUC ACID Negative Normal Negative [facility] Comment on above: Result Comment: Perf ormed at: =G - [facility] [address] [id number] Malariologist: Belkys Carrera MD, Phone: [phone] Performed By: #### L 700.8000 #### [facility] [address] [place], [address] Urine Cultureon 12-09-2024 [facility] Mixed Gram Positive Organisms [place] Count 50,000-80,000 MIXC Mixed contaminants. Submit a new specimen if indicated. Normal [facility] Comment on above: Performed By: #### L 700.8000 #### [facility] [address] [place], [address] Chlamydia trachomatis rRNA d etection by probe and target amplification methodOrdered By: Josseline Bucio on 12-07-2024 C. trachomatis rRNA DAVE+probe Ql (Unsp spec) Negative Negative [facility] Neisseria gonorrhoeae nuclei c acid detection by amplified probe techniqueOrdered By: Josseline Bucio on 12-07-2024 N. gonorrhoeae DNA DAVE+probe Ql (Unsp spec) Negative Negative [facility] Comment on above: Performed at: =G - [facility] [address] [id number] Director: Belkys Carrera MD, Phone: [phone] [employer] Office Visit Reporton 12-07-2024 Senior Research Executive Office Visit Report [address], [address] [place] [address] OFFICE VISIT Date of Service: 12/07/24 MR#: [id number] Acct: [id number] Name: JANETTE CAMPO AUGUST Rep #: [id number] : 1995 Provider: Dr. Josseline Diego DO Age/Sex: 29/F [facility] Status: Signed Intake Vital Signs 08/24/24 11:13 11/29/24 10:20 12/07/24 10:56 Height 5 ft 5 ft 5 ft Weight: 245 lb 8 oz BMI 47.9 BP 123/82 H Intake Visit Reasons: *EST* NOB: US #1 11/17 -> 6.1wk, JIM 07/11 Invoice Classification Clerk Required: No Is patient in pain?: No Allergies No Known Allergies Allergy (Verified 12/07/24 10:59) Medications ???Medication ???Instructions ???Recorded ???Confirmed ???Type cetirizine 10 mg capsule (Zyrtec) 10 mg PO DAILY PRN allergy sympto ms 06/16/22 12/07/24 History albuterol sulfate 90 mcg/actuation 1 - 2 puff inhalation Q6H PRN 12/07/24 Rx aerosol inhaler (ProAir HFA) shortness of breath or wheezing #8.5 grams azelastine 0.05 % eye drops 1 drp ophthalmic (eye) BID #6 mL 0 08/04/23 12/07/24 Rx docosahexaenoic acid 200 mg mg PO 11/25/24 12/07/24 History capsule ( DHA) prochlorperazine maleate 10 mg 10 mg PO TID #30 tabs 12/07/2404/02 Rx tablet (Compazine) Last Menstrual Period: 07/17/24 Zika: Zika virus screening: Negative : No Have you fallen in the past year?: No PFSH PFSH Medical History Recurrent loss Anxiety GERD (gastroesophageal reflux disease) Abnormal uterine bleeding ASCUS favor benign Irritable bowel syndrome with diarrhea Low iron GI bleeding Oral herpes Surgical History Encounter for removal of skin lesion History of placement of ear tubes H/O myringotomy History of tonsillectomy History of esophagogastroduodenoscopy (EGD) H/O colonoscopy H/O toe surgery History of cholecystectomy delivery delivered Family History Father Epilepsy Migraines Mother Arthritis Anxiety Sister Anxiety Social History adopted: No household members: spouse and children housing: house number of children: 2 current occupational status: employed current occupation: [email or web address] current occupational exposures/hazards: Yes (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 ) pets and animals: Yes (Not managing litterbox) pets and animals: cat(s), dog(s) and farm animals history of recent travel: No sexually active: Yes Smoking Status: Never smoker second hand exposure: No alcohol intake: never substance use type: does not use well-balanced diet: daily or most days caffeine: Yes Type: coffee Number of servings: 1 eating out: 1-3 times/week during the past year weight has: decreased > 10 lbs what type of physical activity do you participate in: walking frequency: 3-4 times per week duration: 15-30 minutes/day christoph/restorationism: Oriental Orthodox seatbelt use: always do you feel safe at home: Yes additional social history: : Jonah - [employer] History 4 Elective abortions Hx Para 2 Spontaneous abortions 1 Hx # Term Pregnancies 2 Ectopic pregnancies Hx # Pregnancies Multiple births # of living children 2 Past Pregnancies Del. Date Name GA/Weeks Outcome Route Bth Weight Infant Gen Labor Lgth Anesthesia Del Locatn Provider FOB 09/04/17 Zahra 39 live - full term 7lbs 12oz Female epidural [facility] Mckenzie 01/09/21 Ulices 38 live - full term 7lbs 11oz Male spinal [facility] Dr. Morales 08/07/24 4 spontaneous Jonah Delivery Date: 09/04/17 Last Updated by: Kimberly Werner RN IoL d/t GHTN; AOD at 5cm; Category 2 FHR recurrent late decelerations, Meconium fluid, Emergency csec - baby reces Delivery Date: 01/09/21 Last Updated by: Kimberly Werner RN Emergency csec HPI *EST* NOB: US #1 11/17 -> 6.1wk, JIM 07/11 Details: JANETTE CAMPO is a 29 year old who presents for New OB visit. OB Visit JIM Calculator Estimated Delivery Date Method Current WG Current Estimate 07/11/25 Ultrasound #1 9w 1d Estimated Due Date: 07/11/25 Expected Delivery Route/Plan rpt cs with JV if possible Specific Issue/Plans Covid status: [] Flu vaccine: [] Tdap vaccine: [] Rhogam: [] LARC form signed: [] Problem list reviewed and updated with the most current plan of care details and appropriate orders placed. Relevant counseling for the gestational age provided. Continue routine care and follow up unless otherwise noted in visit notes/problem list details (more content not included)... Normal [facility] Urine cultureOrdered By: Marilyn Bucio on 12-07-2024 Bacteria identified Cx Nom (U) Positive Abnormal [facility] Senior Research Executive Office Visit Reporton 11-29-2024 Senior Research Executive Office Visit Report [facility] [address], [address] [place] [address] OFFICE VISIT Date of Service: 11/29/24 MR#: [id number] Acct: [id number] Name: JANETTE CAMPO AUGUST Rep #: [id number] : 1995 Provider: WILLIAM Goldberg ams Age/Sex: 29/F Location: [facility] Status: Signed Intake Vital Signs 11/26/24 22:09 11/29/24 10:20 Height 5 ft 5 ft Weight: 245 lb 5 oz BMI 47.9 BP 122/79 H Intake Visit Reasons: OB ER f/u per SM (NOB 12/07)* Chief Complaint: ER FU Invoice Classification Clerk Required: No Is patient in pain?: No Allergies No Known Allergies Allergy (Verified 11/29/24 10:18) Medications ???Medication ???Instructions ???Recorded ???Confirmed ???Type cetirizine 10 mg capsule (Zyrtec) 10 mg PO DAILY PRN allergy sympto ms 06/16/22 11/29/24 History albuterol sulfate 90 mcg/actuation 1 - 2 puff inhalation Q6H PRN 11/29/24 Rx aerosol inhaler (ProAir HFA) shortness of breath or wheezing #8.5 grams azelastine 0.05 % eye drops 1 drp ophthalmic (eye) BID #6 mL 0 08/04/23 11/29/24 Rx docosahexaenoic acid 200 mg mg PO 11/25/24 11/29/24 History capsule ( DHA) Is last menstrual period known: No Post menopausal: No Patient : Yes : No PFSH Medical History Recurrent loss Anxiety GERD (gastroesophageal reflux disease) Abnormal uterine bleeding ASCUS favor benign Irritable bowel syndrome with diarrhea Low iron GI bleeding Oral herpes Surgical History Encounter for removal of skin lesion History of placement of ear tubes H/O myringotomy History of tonsillectomy History of esophagogastroduodenoscopy (EGD) H/O colonoscopy H/O toe surgery History of cholecystectomy delivery delivered Family History Father Epilepsy Migraines Mother Arthritis Anxiety Sister Anxiety Social History adopted: No household members: spouse and children housing: house number of children: 2 current occupational status: employed current occupation: [employer] current occupational exposures/hazards: Yes (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 ) pets and animals: Yes (Not managing litterbox) pets and animals: cat(s), dog(s) and farm animals history of recent travel: No sexually active: Yes Smoking Status: Never smoker second hand exposure: No alcohol intake: never substance use type: does not use well-balanced diet: daily or most days caffeine: Yes Type: coffee Number of servings: 1 eating out: 1-3 times/week during the past year weight has: decreased > 10 lbs what type of physical activity do you participate in: walking frequency: 3-4 times per week duration: 15-30 minutes/day christoph/restorationism: Oriental Orthodox seatbelt use: always do you feel safe at home: Yes additional social history: : [employer] HPI OB ER f/u per (NOB 12/07)* Details: JANETTE CAMPO is a 29 year old who presents for ER follow up for threatened AB. US showed IUP with heart rate, measuring consistent with LMP. bleeding has stopped and is not cramping. US in office shows CRL of 1.59 cons with 8.0 week gestation. FHT is 163. Has NOB visit next week with . History 4 Elective abortions Hx Para 2 Spontaneous abortions 1 Hx # Term Pregnancies 2 Ectopic pregnancies Hx # Pregnancies Multiple births # of living children 2 Past Pregnancies Del. Date Name GA/Weeks Outcome Route Bth Weight Infant Gen Labor Lgth Anesthesia Del Locatn Provider FOB 09/04/17 Zahra 39 live - full term 7lbs 12oz Female epidural [facility] DM Jonah 01/09/21 Ulices 38 live - full term 7lbs 11oz Male spinal [facility] Dr. Celeste Jonah 08/07/24 4 spontaneous Jonah Delivery Date: 09/04/17 Last Updated by: Kimberly Werner RN IoL d/t GHTN; AOD at 5cm; Category 2 FHR recurrent late decelerations, Meconium fluid, Emergency csec - baby reces Delivery Date: 01/09/21 Last Updated by: Kimberly Werner RN Emergency csec ROS Const Constitutional: Reports system reviewed and no additional complaints, except as documented Cardio Card: Reports system reviewed and no additional complaints, except as documented Resp Resp: Reports system reviewed and no additional complaints, except as documented GI GI: Reports system reviewed and no additional complaints, except as documented : Reports system reviewed and no additional complaints, except as documented; Denies difficulty voiding, dysuria or urinary frequency Skin Skin/Breast: Reports system reviewed an (more content not included)... Normal [facility] Emergency Department Summary on 11-27-2024 Emergency Department Summary [facility] Medical Records Department [address] [place] [address] Emergency Department Summary 11/27/24 MR#: [id number] Acct: [id number] Name: JANETTE CAMPO AUGUST Rep #: [id number] : 1995 29 From: Mariusz Mueller DO PCP: Dr. Rhina Kulkarni MD Status:DEP ER Location: ED HPI HPI - Female History of Present Illness Chief Complaint: Vag Bld, Preg Informant: patient Narrative Narrative: Patient is a G4, P2 with 1 spontaneous miscarriage who states she is roughly 7 weeks . She reports she is already had an ultrasound confirming an IUP. She states her has been uneventful but that roughly 30 minutes prior to arrival she developed lower abdominal cramping and then began passing blood with small clots. She denies any history of bleeding disorder or blood thinner use. She states that because of her previous miscarriage she was concerned that that was happening again and therefore comes to the hospital for evaluation. [facility] Medical History (Updated 11/27/24 @ 01:[address] Mariusz Mueller DO) Recurrent loss Anxiety GERD (gastroesophageal reflux disease) Abnormal uterine bleeding ASCUS favor benign Irritable bowel syndrome with diarrhea Low iron GI bleeding Oral herpes Medical History no medical history Home Medications ???Medication ???Instructions ???Recorded ???Last Taken ???Type cetirizine 10 mg capsule (Zyrtec) 10 mg PO DAILY PRN allergy sympto ms 06/16/22 Unknown History albuterol sulfate 90 mcg/actuation 1 - 2 puff inhalation Q6H PRN Unknown Rx aerosol inhaler (ProAir HFA) shortness of breath or wheezing #8.5 grams azelastine 0.05 % eye drops 1 drp ophthalmic (eye) BID #6 mL 0 08/04/23 Unknown Rx docosahexaenoic acid 200 mg mg PO 11/25/24 Unknown History capsule ( DHA) Allergy/AdvReac Type Severity Reaction Status Date / Time No Known Allergies Allergy Verified 11/25/24 10:55 Family History Father Epilepsy Migraines Mother Arthritis Anxiety Sister Anxiety Surgical History Encounter for removal of skin lesion History of placement of ear tubes H/O myringotomy History of tonsillectomy History of esophagogastroduodenoscopy (EGD) H/O colonoscopy H/O toe surgery History of cholecystectomy delivery delivered Surgical History no surgical history Social History adopted: No household members: spouse and children housing: house number of children: 2 current occupational status: employed current occupation: [employer] current occupational exposures/hazards: Yes (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 ) pets and animals: Yes (Not managing litterbox) pets and animals: cat(s), dog(s) and farm animals history of recent travel: No sexually active: Yes Smoking Status: Never smoker second hand exposure: No alcohol intake: never substance use type: does not use well-balanced diet: daily or most days caffeine: Yes Type: coffee Number of servings: 1 eating out: 1-3 times/week during the past year weight has: decreased > 10 lbs what type of physical activity do you participate in: walking frequency: 3-4 times per week duration: 15-30 minutes/day christoph/restorationism: Oriental Orthodox seatbelt use: always do you feel safe at home: Yes additional social history: : [employer] ROS ROS ED Constitutional Constitutional ED: Denies chills or fever(s) ENT ENT ED: Denies sore throat Cardiovascular Cardiovascular: Denies chest pain Respiratory/Chest Respiratory/Chest: Denies cough or dyspnea Gastrointestinal Gastrointestinal: Reports abdominal pain; Denies diarrhea, nausea or vomiting Genitourinary Genitourinary ED: Reports other Details: Positive vaginal bleeding ; Denies dysuria Musculoskeletal Musculoskeletal: Denies myalgias Integumentary Denies rash Neurologic Neurologic: Denies headache(s) Psychiatric Psychiatric: Reports anxiety Hematologic/Lymphatic Hematologic/Lymphatic: Denies easy bleeding or easy bruising EXAM Physical Exam Const Vital Signs: 11/26/24 22:09 11/27/24 00:08 11/27/24 01:50 Temperature 97.1 F L 97.9 F Temperature Source Temporal Pulse Rate 108 H 99 99 Respiratory Rate 22 H 16 16 Blood Pressure 157/109 H 123/74 H Blood Pressure Mean 125 90 Pulse Ox 100 98 98 Oxygen Delivery Method Room Air Room Air Positive well nourished and well developed General Appearance ED: well developed; Negative for pallor HEENT HEENT Narrative: Normocephalic atraumatic Eyes PERRL and EOMs intact bilaterally General Eye ED: Negative for (more content not included)... Normal [facility] hCG Titer Quant., Serumon HCG QUANT. 61494 mIU/mL High <9 non-preg [facility] Comment on above: Result Comment: Gest ational Age 0.2-1 Week: 5-50 mIU/mL 1-2 Weeks: 50-500 mIU/mL 2-3 Weeks: 100-5000 mIU/mL 3-4 Weeks: 500-10,000 mIU/mL 4-5 Weeks:1000-50,000 mIU/mL 5-6 Weeks: 10,000-100,000 mIU/mL 6-8 Weeks: 15,000-200,000 mIU/mL 2-3 Months:10,000-100,000 mIU/mL Performed By: #### L 700.8000, L500.2500, L100.0100 #### [facility] [address] [place], [place], [id number] Absolute lymphocyte countOrd ered By: Mariusz Mueller on 11-26-2024 Lymphocytes Auto (Unsp spec) [#/Vol] 3.15 10*3/uL 0.83-4.51 [facility] Absolute neutrophil countOrd ered By: Mariusz Mueller on 11-26-2024 Neutrophils (Bld) [#/Vol] 5.8 10*3/uL 2.0-7.7 [facility] Anion gap in Serum or Plasma Ordered By: Mariusz Mueller on 11-26-2024 Anion gap [Moles/Vol] 11 mmol/L 07-21 [facility] Automated lymphocyte count a s percentage of total leukocytesOrdered By: Mariusz Mueller on 11-26-2024 Lymphocytes/100 WBC Auto (Unsp spec) 31.9 % - [facility] BUN/creatinine ratioOrdered By: Mariusz Mueller on 11-26-2024 Urea nitrogen/Creatinine [Mass ratio] 15.1 mg/mg 12-26 [facility] Basic Metabolic Profile (BMP )on 11-26-2024 BUN/CRE 15.1 RATIO Normal 12-26 [facility] Comment on above: Performed By: #### L 700.8000, L500.2500, L100.0100 #### [facility] [address] [place], [address] Calcium [Mass/Vol] 9.4 mg/dL Normal 7.6-11.0 [facility] Comment on above: Performed By: #### L 700.8000, L500.2500, L100.0100 #### [facility] [address] [place], [address] Chloride [Moles/Vol] 102 mmol/L Normal 98-108 [facility] Comment on above: Performed By: #### L 700.8000, L500.2500, L100.0100 #### [facility] [address] [place], [address] CO2 [Moles/Vol] 21.8 mmol/L Normal 21.0-32.0 [facility] Comment on above: Performed By: #### L 700.8000, L500.2500, L100.0100 #### [facility] [address] [place], [address] Creatinine [Mass/Vol] 0.88 mg/dL Normal 0.70-1.20 [facility] Comment on above: Performed By: #### L 700.8000, L500.2500, L100.0100 #### [facility] [address] [place], [address] ECRCL 107.33 ml/min Normal 50-250 [facility] Comment on above: Performed By: #### L 700.8000, L500.2500, L100.0100 #### [facility] [address] [place], [address] GAP 11 Normal 5-15 [facility] Comment on above: Performed By: #### L 700.8000, L500.2500, L100.0100 #### [facility] [address] [place], [address] GFR/1.73 sq M.predicted among non-blacks MDRD (S/P/Bld) [Vol rate/Area] 91 mL/min/{1.73_m2} Normal >60 [facility] Comment on above: Result Comment: mL/m in/1.73m2 CKD-EPI Creatinine Equation (2020) Performed By: #### L 700.8000, L500.2500, L100.0100 #### [facility] [address] [place], [address] Glucose [Mass/Vol] 92 mg/dL Normal 70-99 [facility] Comment on above: Performed By: #### L 700.8000, L500.2500, L100.0100 #### [facility] [address] [place], [address] Potassium [Moles/Vol] 3.9 mmol/L Normal 3.3-5.1 [facility] Comment on above: Performed By: #### L 700.8000, L500.2500, L100.0100 #### [facility] [address] [place], [address] Sodium [Moles/Vol] 135 mmol/L Normal 133-145 [facility] Comment on above: Performed By: #### L 700.8000, L500.2500, L100.0100 #### [facility] [address] [place], [address] Urea nitrogen [Mass/Vol] 13 mg/dL Normal 4-19 [facility] Comment on above: Performed By: #### L 700.8000, L500.2500, L100.0100 #### [facility] [address] [place], [address] Basophil percentageOrdered B y: Mariusz Mueller on 11-26-2024 Basophils/100 WBC (Bld) 0.3 % 0-1 [facility] CBC W/Diff, Automatedon 11-08 Absolute Lymph 3.15 X10 3/uL Normal 0.83-4.51 [facility] Comment on above: Performed By: #### L 700.8000, L500.2500, L100.0100 #### [facility] [address] [place], [address] Absolute Neut 5.8 X10 3/uL Normal 2.0-7.7 [facility] Comment on above: Performed By: #### L 700.8000, L500.2500, L100.0100 #### [facility] [address] [place], [address] Basophils/100 WBC (Bld) 0.3 % Normal 0-1 [facility] Comment on above: Performed By: #### L 700.8000, L500.2500, L100.0100 #### [facility] [address] [place], [address] Eosinophils/100 WBC (Bld) 1.1 % Normal 0-5 [facility] Comment on above: Performed By: #### L 700.8000, L500.2500, L100.0100 #### [facility] [address] [place], [address] Erythrocyte distribution width (RBC) [Ratio] 18.6 % High 11.6-14.6 [facility] Comment on above: Performed By: #### L 700.8000, L500.2500, L100.0100 #### [facility] [address] [place], [address] Hematocrit (Bld) [Volume fraction] 32.1 % Low 37-47 [facility] Comment on above: Performed By: #### L 700.8000, L500.2500, L100.0100 #### [facility] [address] [place], [address] Hemoglobin (Bld) [Mass/Vol] 10.2 g/dL Low 12.0-15.0 [facility] Comment on above: Performed By: #### L 700.8000, L500.2500, L100.0100 #### [facility] [address] [place], [address] IG% 0.300 Normal 0.0-0.9 [facility] Comment on above: Result Comment: IG% - Immature Granulocytes (promyelocytes, myelocytes and metamyelocytes) > 1% indicates that a LEFT SHIFT is Present. Performed By: #### L 700.8000, L500.2500, L100.0100 #### [facility] [address] [place], [address] Lymphocytes/100 WBC (Bld) 31.9 % Normal 19-41 [facility] Comment on above: Performed By: #### L 700.8000, L500.2500, L100.0100 #### [facility] [address] [place], [address] MCH (RBC) [Entitic mass] 22.9 pg Low 27.0-32.0 [facility] Comment on above: Performed By: #### L 700.8000, L500.2500, L100.0100 #### [facility] [address] [place], [address] MCHC (RBC) [Mass/Vol] 31.8 g/dL Low 32-36 [facility] Comment on above: Performed By: #### L 700.8000, L500.2500, L100.0100 #### [facility] [address] [place], [address] MCV (RBC) [Entitic vol] 72.0 fL Low 81-99 [facility] Comment on above: Performed By: #### L 700.8000, L500.2500, L100.0100 #### [facility] [address] [place], [address] Monocytes/100 WBC (Bld) 7.7 % Normal 0-10 [facility] Comment on above: Performed By: #### L 700.8000, L500.2500, L100.0100 #### [facility] [address] [place], [address] Neutrophils/100 WBC (Bld) 58.7 % Normal 47-70 [facility] Comment on above: Performed By: #### L 700.8000, L500.2500, L100.0100 #### [facility] [address] [place], [address] Nucleated RBC (Bld) [#/Vol] 0 10*3/uL Normal 0-5 [facility] Comment on above: Performed By: #### L 700.8000, L500.2500, L100.0100 #### [facility] [address] [place], [address] Platelet mean volume (Bld) [Entitic vol] 10.1 fL Normal 6.2-12.0 [facility] Comment on above: Performed By: #### L 700.8000, L500.2500, L100.0100 #### [facility] [address] [place], [address] Platelets (Bld) [#/Vol] 249 10*3/uL Normal 150-450 [facility] Comment on above: Performed By: #### L 700.8000, L500.2500, L100.0100 #### [facility] [address] [place], [address] RBC (Bld) [#/Vol] 4.46 10*6/uL Normal 4.2-5.4 [facility] Comment on above: Performed By: #### L 700.8000, L500.2500, L100.0100 #### [facility] [address] [place], [address] RDW SD 47.5 fl High 35.1-43.9 [facility] Comment on above: Performed By: #### L 700.8000, L500.2500, L100.0100 #### [facility] [address] [place], [address] WBC (Bld) [#/Vol] 9.9 10*3/uL Normal 4.4-11.0 [facility] Comment on above: Performed By: #### L 700.8000, L500.2500, L100.0100 #### [facility] [address] [place], [address] Carbon dioxide, total [Moles /volume] in Central venous bloodOrdered By: Mariusz Mueller on 11-26-2024 CO2 [Moles/Vol] 21.8 mmol/L 21.0-32.0 [facility] Chloride assayOrdered By: Armida Mueller on 11-26-2024 Chloride [Moles/Vol] 102 mmol/L 98-108 [facility] Eosinophil percentageOrdered By: Mariusz Mueller on 11-26-2024 Eosinophils/100 WBC (Bld) 1.1 % 0-5 [facility] Erythrocyte distribution wid th ratioOrdered By: Mariusz Mueller on 11-26-2024 Erythrocyte distribution width (RBC) [Ratio] 18.6 % High 11.6-14.6 [facility] Erythrocyte distribution wid th standard deviationOrdered By: Mariusz Mueller on 11-26-2024 Erythrocyte distribution width (RBC) [Ratio] 47.5 fl High 35.1-43.9 [facility] Glomerular filtration rate ( GFR) estimation/1.73 sq m using serum, plasma, or whole bOrdered By: Mariusz Mueller on 11-26-2024 GFR/1.73 sq M.predicted among non-blacks MDRD (S/P/Bld) [Vol rate/Area] 91 mL/min/{1.73_m2} >60 [facility] Comment on above: mL/min/1.73m2 CKD-EP I Creatinine Equation (2020) Hematocrit Auto (Bld) [Volum e fraction]Ordered By: Mariusz Mueller on 11-26-2024 Hematocrit (Bld) [Volume fraction] 32.1 % Low 37-47 [facility] Hemoglobin measurementOrdere d By: Mariusz Mueller on 11-26-2024 Hemoglobin (Bld) [Mass/Vol] 10.2 g/dL Low 12.0-15.0 [facility] Immature granulocytes/100 WB C Auto (Bld)Ordered By: Mariusz Mueller on 11-26-2024 Immature granulocytes/100 WBC (Bld) 0.300 % 0.0-0.9 [facility] Comment on above: IG% - Immature Granu locytes (promyelocytes, myelocytes and metamyelocytes) > 1% indicates that a LEFT SHIFT is Present. MCV (mean corpuscular volume ) determinationOrdered By: Mariusz Mueller on 11-26-2024 MCV (RBC) [Entitic vol] 72.0 fL Low 81-99 [facility] Mean corpuscular hemoglobin (MCH) determinationOrdered By: Mariusz Mueller on 11-26-2024 MCH (RBC) [Entitic mass] 22.9 pg Low 27.0-32.0 [facility] Mean corpuscular hemoglobin concentration (MCHC) determinationOrdered By: Mariusz Mueller on 11-26-2024 MCHC (RBC) [Mass/Vol] 31.8 g/dL Low 32-36 [facility] Mean platelet volume determi nationOrdered By: Mariusz Mueller on 11-26-2024 Platelet mean volume (Bld) [Entitic vol] 10.1 fL 6.2-12.0 [facility] Monocyte percentageOrdered B y: Mariusz Mueller on 11-26-2024 Monocytes/100 WBC (Bld) 7.7 % 0-10 [facility] Neutrophil percentageOrdered By: Mariusz Mueller on 11-26-2024 Neutrophils/100 WBC (Bld) 58.7 % 47-70 [facility] Nucleated red blood cell per centageOrdered By: Mariusz Mueller on 11-26-2024 Nucleated RBC/100 WBC (Bld) [Ratio] 0 % 0-5 [facility] Platelet countOrdered By: Armida Mueller on 11-26-2024 Platelets (Bld) [#/Vol] 249 10*3/uL 150-450 [facility] Potassium measurement (mass/ volume)Ordered By: Mariusz Mueller on 11-26-2024 Potassium (Unsp spec) [Mass/Vol] 3.9 mmol/L 3.3-5.1 [facility] RBC Auto (Bld) [#/Vol]Ordere d By: Mariusz Mueller on 11-26-2024 RBC (Bld) [#/Vol] 4.46 10*6/uL 4.2-5.4 [facility] Serum creatinine measurement (mass/volume)Ordered By: Mariusz Mueller on 11-26-2024 Creatinine [Mass/Vol] 0.88 mg/dL 0.70-1.20 [facility] Serum glucose measurement (m ass/volume)Ordered By: Mariusz Mueller on 11-26-2024 Glucose [Mass/Vol] 92 mg/dL 70-99 [facility] Serum human chorionic gonado tropin detection for pregnancyOrdered By: Mariusz Mueller on 11-26-2024 HCG ( test[place]l [address] mIU/mL High <9 [facility] Comment on above: Gestational Age0.2-1 Week: 5-50 mIU/mL1-2 Weeks: 50-500 mIU/mL2-3 Weeks: 100-5000 mIU/mL3-4 Weeks: 500-10,000 mIU/mL4-5 Weeks:1000-50,000 mIU/mL5-6 Weeks: 10,000-100,000 mIU/mL6-8 Weeks: 15,000-200,000 mIU/mL2-3 Months:10,000-100,000 mIU/mL Serum or plasma calcium morales urement (mass/volume)Ordered By: Mariusz Mueller on 11-26-2024 Calcium [Mass/Vol] 9.4 mg/dL 7.6-11.0 [facility] Serum or plasma urea nitroge n measurement (mass/volume)Ordered By: Mariusz Mueller on 11-26-2024 Urea nitrogen [Mass/Vol] 13 mg/dL 4-19 [facility] Sodium levelOrdered By: Isaias Mueller on 11-26-2024 Sodium [Moles/Vol] 135 mmol/L 133-145 [facility] Transvaginal w/Preg USon Transvaginal w/Preg US [facility] [address] [place] [address] [id number] Transvaginal w/Preg US MR#: [id number] Acct: [id number] Name: JANETTE CAMPO AUGUST Rep #: [id number] : 1995 F 29 From: Evin Streeter MD PCP: Dr. Rhina Kulkarni MD Status: REG ER Study: Transvaginal w/Preg US Date of Exam: 11/26/24 Exam# [id number] Ordering Dr: Mariusz Mueller DO PROCEDURE: TRANSVAGINAL W/PREG US 11/26/2024 REASON FOR EXAM: ? MISCARRIAGE TECHNIQUE: Procedure Code: USTVAGP Modality: US Procedure: TRANSVAGINAL W/PREG US COMPARISON: 11/16/2024 FINDINGS The uterus measures 12.8 x 7.7 x 6.6 cm. A gestational sac is identified within the uterus. Within this gestational sac, a pole and yolk sac are identified. The crown rump length measures 13 mm and corresponds to a gestational age of 7 weeks 4 days. Real-time examination confirms cardiac activity with a heart rate of 152 bpm. A small amount of fluid is noted within the cervical canal. Both ovaries are not visualized. No adnexal masses are seen. There is no fluid in the cul-de-sac. US/Transvaginal w/Preg US IMPRESSION: Live intrauterine with a gestational age of 7 weeks 4 days. The estimated sonographic delivery date is: 07/11/2025. Complete anatomical assessment should be performed at 19-20 wks. Reading Location: [facility] CC: Dr. Rhina Kulkarni MD; Mariusz Mueller DO Toy Consultant: Signed Normal [facility] White blood cell (WBC) count Ordered By: Mariusz Mueller on 11-26-2024 WBC (Bld) [#/Vol] 9.9 10*3/uL 4.4-11.0 [facility] Transvaginal w/Preg USon Transvaginal w/Preg US [facility] Imaging Services [address] [place] [address] Transvaginal w/Preg US MR#: [id number] Acct: [id number] Name: JANETTE CAMPO AUGUST Rep #: [id number] : 1995 F 29 From: Mukesh choi MD PCP: Dr. Rhina Kulkarni MD Status: REG CLI Study: Transvaginal w/Preg US Date of Exam: 11/16/24 Exam# [id number] Ordering Dr: Yoon Wilkins CNM PROCEDURE: TRANSVAGINAL [...] and unremarkable. DIMENSIONS: Parameter Measurement / EGA Varnado Rump Length: 2 mm/6 weeks and 0 days Gestational Sac: 1.4 cm/6 weeks and 2 days Yolk Sac: 3 mm/ ESTIMATED GESTATIONAL AGE: By Ultrasound: 6 weeks and 1 day ESTIMATED DATE OF DELIVERY: By Ultrasound: July 11, 2025 US/Transvaginal w/Preg US IMPRESSION: Single live intrauterine gestation with a mean gestational age of 6 weeks and 1 day. Reading Location: [id number] CC: WILLIAM Wilkins; Dr. Rhina Kulkarni MD Toy Consultant: Signed Normal [facility] Serum human chorionic gonado tropin detection for pregnancyOrdered By: Yoon Wilkins on 11-02-2024 HCG ( test) Ql 75 mIU/mL High <9 [facility] Comment on above: Gestational Age0.2-1 Week: 5-50 mIU/mL1-2 Weeks: 50-500 mIU/mL2-3 Weeks: 100-5000 mIU/mL3-4 Weeks: 500-10,000 mIU/mL4-5 Weeks:1000-50,000 mIU/mL5-6 Weeks: 10,000-100,000 mIU/mL6-8 Weeks: 15,000-200,000 mIU/mL2-3 Months:10,000-100,000 mIU/mL hCG Titer Quant., Serumon HCG QUANT. 75 mIU/mL High <9 non-preg [facility] Comment on above: Result Comment: Gest ational Age 0.2-1 Week: 5-50 mIU/mL 1-2 Weeks: 50-500 mIU/mL 2-3 Weeks: 100-5000 mIU/mL 3-4 Weeks: 500-10,000 mIU/mL 4-5 Weeks:1000-50,000 mIU/mL 5-6 Weeks: 10,000-100,000 mIU/mL 6-8 Weeks: 15,000-200,000 mIU/mL 2-3 Months:10,000-100,000 mIU/mL Performed By: #### L 700.8000 ####[facility] [address] [place], [address] Serum human chorionic gonado tropin detection for pregnancyOrdered By: Yoon Wilkins on 10-31-2024 HCG ( test) Ql 33 mIU/mL High <9 [facility] Comment on above: Gestational Age0.2-1 Week: 5-50 mIU/mL1-2 Weeks: 50-500 mIU/mL2-3 Weeks: 100-5000 mIU/mL3-4 Weeks: 500-10,000 mIU/mL4-5 Weeks:1000-50,000 mIU/mL5-6 Weeks: 10,000-100,000 mIU/mL6-8 Weeks: 15,000-200,000 mIU/mL2-3 Months:10,000-100,000 mIU/mL hCG Titer Quant., Serumon HCG QUANT. 33 mIU/mL High <9 non-preg [facility] Comment on above: Result Comment: Gest ational Age 0.2-1 Week: 5-50 mIU/mL 1-2 Weeks: 50-500 mIU/mL 2-3 Weeks: 100-5000 mIU/mL 3-4 Weeks: 500-10,000 mIU/mL 4-5 Weeks:1000-50,000 mIU/mL 5-6 Weeks: 10,000-100,000 mIU/mL 6-8 Weeks: 15,000-200,000 mIU/mL 2-3 Months:10,000-100,000 mIU/mL Performed By: #### L 700.8000 #### [facility] [address] [place], [address] Rapid group A Streptococcus antigen assay at point of careOrdered By: Fabrizio Rubi on 10-05-2024 S. pyogenes Ag IA.rapid Ql (Throat) Negative [facility] Urgent Care Visit Reporton 0 10-05-2024 Urgent Care Visit Report [facility] [address], [address] [place] [address] OFFICE VISIT Date of Service: 10/05/24 MR#: [id number] Acct: [id number] Name: JANETTE CAMPO AUGUST Rep #: [id number] : 1995 Provider: KENDY Rubi Age/Sex: 29/F Location: [facility] Status: Signed Intake Vital Signs 08/24/24 11:13 10/05/24 08:33 Height 5 ft Weight: 240 lb 6 oz BMI 46.9 BP 122/82 H 114/70 Blood Pressure Location Lt brachial Position Sitting Respiration 15 Pulse 81 Pulse Source NIBP Temp 97.7 F L Temp Source Oral Pulse Oximetry (%) 98 Oxygen Delivery Method room air Intake Visit Reasons: SORE THROAT Chief Complaint: ST, BA, chills Invoice Classification Clerk Required: No Is patient in pain?: Yes Allergies No Known Allergies Allergy (Verified 10/05/24 08:34) Is last menstrual period known: No Post menopausal: No Patient : No Have you fallen in the past year?: No Nurse's Note: ST, BA, chills, painful swallowing x 48 hours. history of tonsillectomy but has had strep frequently since. 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 Rhina Kulkarni MD Status: [facility] CLI Study: Pelvic w/ Transvaginal Date of Exam: 08/30/24 Exam# [id number] Ordering Dr: Cheryle Meza PROCEDURE: PELVIC W/ [...] TRANSVAGINAL PELVIC ULTRASOUND WITH DOPPLER. Reading Location: [id number] CC: Dr. Rhina Kulkarni MD; Dr. Cheryle Meza MD Toy Consultant: Signed Normal [facility] Anticardiolipin IgG, IgMon 0 08-26-2024 ANTICARDIO IgG < 9 Normal 0-14 [facility] Comment on above: Result Comment: Nega tive: <15 Indeterminate: 15 - 20 Low-Med Positive: >20 - 80 High Positive: >80 Performed By: #### L 700.8000 #### [facility] [address] [place], [address] Anticardio.IgM < 9 Normal 0-12 [facility] Comment on above: Result Comment: Nega tive: <13 Indeterminate: 13 - 20 Low-Med Positive: >20 - 80 High Positive: >80 Performed at: - [facility] [id number] Malariologist: Blue Araya MD, Phone: [phone] Performed at: [facility] [id number] Malariologist: Charles Daigle PhD, Phone: [phone] Performed By: #### L 700.8000 #### [facility] [address] [place], [address] Beta-2 Glycoprot IgG, A, 06-20-2025 B2 GLYCO I IGA <9 Normal 0-25 [facility] Comment on above: Result Comment: Resu lt Units: GPI IgA units The reference interval reflects a 3SD or 99th percentile interval, which is thought to represent a potentially clinically significant result in accordance with the International Consensus Statement on the classification criteria for definitive antiphospholipid syndrome (APS). J Thromb Haem 2006;4:295-306. Performed By: #### L 700.8000 #### [facility] [address] [place], [address] B2 GLYCO I IGG <9 Normal 0-20 [facility] Comment on above: Result Comment: Resu lt Units: GPI IgG units The reference interval reflects a 3SD or 99th percentile interval, which is thought to represent a potentially clinically significant result in accordance with the International Consensus Statement on the classification criteria for definitive antiphospholipid syndrome (APS). J Thromb Haem 2006;4:295-306. Performed By: #### L 700.8000 #### [facility] [address] [place], [address] B2 GLYCO I IGM <9 Normal 0-32 [facility] Comment on above: Result Comment: Resu lt Units: GPI IgM units The reference interval reflects a 3SD or 99th percentile interval, which is thought to represent a potentially clinically significant result in accordance with the International Consensus Statement on the classification criteria for definitive antiphospholipid syndrome (APS). J Thromb Haem 2006;4:295-306. Performed By: #### L 700.8000 #### [facility] [address] [place], [address] Lupus Anticoagulant Compon 0 6- aPTT Coag (Bld) [Time] 29.7 s Normal 0.0-43.5 [facility] Comment on above: Performed By: #### L 700.8000 #### [facility] [address] [place], [address] DILUTE PT (dPT) 38.4 sec Normal 0.0-47.6 [facility] Comment on above: Performed By: #### L 700.8000 #### [facility] [address] [place], [place], [address] dPT Conf. Ratio 1.09 Ratio Normal 0.00-1.34 [facility] Comment on above: Performed By: #### L 700.8000 #### [facility] [address] [place], [place], [address] DRVVT 46.9 sec Normal 0.0-47.0 [facility] Comment on above: Performed By: #### L 700.8000 #### [facility] [address] [place], [place], [address] Interpretation Comment: Normal . [facility] Comment on above: Result Comment: No l upus anticoagulant was detected. Performed By: #### L 700.8000 #### [facility] [address] [place], [address] THROMBIN TIME 18.2 sec Normal 0.0-23.0 [facility] Comment on above: Performed By: #### L 700.8000 #### [facility] [address] [place], [place], [address] Absolute lymphocyte countOrd ered By: Cheryle Meza on 08-24-2024 Lymphocytes Auto (Unsp spec) [#/Vol] 2.69 10*3/uL 0.83-4.51 [facility] Absolute neutrophil countOrd ered By: Cheryle Meza on 08-24-2024 Neutrophils (Bld) [#/Vol] 3.6 10*3/uL 2.0-7.7 [facility] Automated lymphocyte count a s percentage of total leukocytesOrdered By: Cheryle Meza on 08-24-2024 Lymphocytes/100 WBC Auto (Unsp spec) 38.1 % 19-41 [facility] Basophil percentageOrdered B y: Cheryle Meza on 08-24-2024 Basophils/100 WBC (Bld) 0.3 % 0-1 [facility] CBC W/Diff, Automatedon 08-07 Absolute Lymph 2.69 X10 3/uL Normal 0.83-4.51 [facility] Comment on above: Performed By: #### L 501.9520, L100.0100 ####[facility] [address] [place], [address] Absolute Neut 3.6 X10 3/uL Normal 2.0-7.7 [facility] Comment on above: Performed By: #### L 501.9520, L100.0100 ####[facility] [address] [place], [address] Basophils/100 WBC (Bld) 0.3 % Normal 0-1 [facility] Comment on above: Performed By: #### L 501.9520, L100.0100 ####[facility] [address] [place], [address] Eosinophils/100 WBC (Bld) 2.4 % Normal 0-5 [facility] Comment on above: Performed By: #### L 501.9520, L100.0100 ####[facility] [address] [place], [address] Erythrocyte distribution width (RBC) [Ratio] 16.7 % High 11.6-14.6 [facility] Comment on above: Performed By: #### L 501.9520, L100.0100 ####[facility] [address] [place], [address] Hematocrit (Bld) [Volume fraction] 35.0 % Low 37-47 [facility] Comment on above: Performed By: #### L 501.9520, L100.0100 ####[facility] [address] [place], [address] Hemoglobin (Bld) [Mass/Vol] 10.8 g/dL Low 12.0-15.0 [facility] Comment on above: Performed By: #### L 501.9520, L100.0100 ####[facility] [address] [place], [address] IG% 0.300 Normal 0.0-0.9 [facility] Comment on above: Result Comment: IG% - Immature Granulocytes (promyelocytes, myelocytes and metamyelocytes) > 1% indicates that a LEFT SHIFT is Present. Performed By: #### L 501.9520, L100.0100 ####[facility] [address] [place], [address] Lymphocytes/100 WBC (Bld) 38.1 % Normal 19-41 [facility] Comment on above: Performed By: #### L 501.9520, L100.0100 ####[facility] [address] [place], [address] MCH (RBC) [Entitic mass] 22.8 pg Low 27.0-32.0 [facility] Comment on above: Performed By: #### L 501.9520, L100.0100 ####[facility] [address] [place], [address] MCHC (RBC) [Mass/Vol] 30.9 g/dL Low 32-36 [facility] Comment on above: Performed By: #### L 501.9520, L100.0100 ####[facility] [address] [place], [address] MCV (RBC) [Entitic vol] 73.8 fL Low 81-99 [facility] Comment on above: Performed By: #### L 501.9520, L100.0100 ####[facility] [address] [place], [address] Monocytes/100 WBC (Bld) 7.9 % Normal 0-10 [facility] Comment on above: Performed By: #### L 501.9520, L100.0100 ####[facility] [address] [place], [address] Neutrophils/100 WBC (Bld) 51.0 % Normal 47-70 [facility] Comment on above: Performed By: #### L 501.9519, L100.0100 ####[facility] [address] [place], [address] Nucleated RBC (Bld) [#/Vol] 0 10*3/uL Normal 0-5 [facility] Comment on above: Performed By: #### L 501.9519, L100.0100 ####[facility] [address] [place], [address] Platelet mean volume (Bld) [Entitic vol] 9.9 fL Normal 6.2-12.0 [facility] Comment on above: Performed By: #### L 501.9519, L100.0100 ####[facility] [address] [place], [address] Platelets (Bld) [#/Vol] 274 10*3/uL Normal 150-450 [facility] Comment on above: Performed By: #### L 501.9519, L100.0100 ####[facility] [address] [place], [address] RBC (Bld) [#/Vol] 4.74 10*6/uL Normal 4.2-5.4 [facility] Comment on above: Performed By: #### L 501.9519, L100.0100 ####[facility] [address] [place], [address] RDW SD 44.2 fl High 35.1-43.9 [facility] Comment on above: Performed By: #### L 501.9519, L100.0100 ####[facility] [address] [place], [address] WBC (Bld) [#/Vol] 7.1 10*3/uL Normal 4.4-11.0 [facility] Comment on above: Performed By: #### L .20, L100.0100 ####[facility] [address] [place], [address] Dilute Deangelo's viper venom timeOrdered By: Cheryle Meza on 08-24-2024 dRVVT Coag (PPP) [Time] 46.9 s 0.0-47.0 [facility] Eosinophil percentageOrdered By: Cheryle Meza on 08-24-2024 Eosinophils/100 WBC (Bld) 2.4 % 0-5 [facility] Erythrocyte distribution wid th ratioOrdered By: Cheryle Meza on 08-24-2024 Erythrocyte distribution width (RBC) [Ratio] 16.7 % High 11.6-14.6 [facility] Erythrocyte distribution wid th standard deviationOrdered By: Cheryle Meza on 08-24-2024 Erythrocyte distribution width (RBC) [Ratio] 44.2 fl High 35.1-43.9 [facility] Hematocrit Auto (Bld) [Volum e fraction]Ordered By: Cheryle Meza on 08-24-2024 Hematocrit (Bld) [Volume fraction] 35.0 % Low 37-47 [facility] Hemoglobin measurementOrdere d By: Cheryle Meza on 08-24-2024 Hemoglobin (Bld) [Mass/Vol] 10.8 g/dL Low 12.0-15.0 [facility] Immature granulocytes/100 WB C Auto (Bld)Ordered By: Cheryle Meza on 08-24-2024 Immature granulocytes/100 WBC (Bld) 0.300 % 0.0-0.9 [facility] Comment on above: IG% - Immature Granu locytes (promyelocytes, myelocytes and metamyelocytes) > 1% indicates that a LEFT SHIFT is Present. MCV (mean corpuscular volume ) determinationOrdered By: Cheryle Meza on 08-24-2024 MCV (RBC) [Entitic vol] 73.8 fL Low 81-99 [facility] Mean corpuscular hemoglobin (MCH) determinationOrdered By: Cheryle Meza on 08-24-2024 MCH (RBC) [Entitic mass] 22.8 pg Low 27.0-32.0 [facility] Mean corpuscular hemoglobin concentration (MCHC) determinationOrdered By: Cherylevictor manuel Meza on 08-24-2024 MCHC (RBC) [Mass/Vol] 30.9 g/dL Low 32-36 [facility] Mean platelet volume determi nationOrdered By: Cherylevictor manuel Meza on 08-24-2024 Platelet mean volume (Bld) [Entitic vol] 9.9 fL 6.2-12.0 [facility] Monocyte percentageOrdered B y: Cheryle Meza on 08-24-2024 Monocytes/100 WBC (Bld) 7.9 % 0-10 [facility] Neutrophil percentageOrdered By: Cheryle Meza on 08-24-2024 Neutrophils/100 WBC (Bld) 51.0 % 47-70 [facility] Nucleated red blood cell per centageOrdered By: Cheryle Meza on 08-24-2024 Nucleated RBC/100 WBC (Bld) [Ratio] 0 % 0-5 [facility] Senior Research Executive Office Visit Reporton 08-24-2024 Senior Research Executive Office Visit Report [facility] [address], [address] [place] [address] OFFICE VISIT Date of Service: 08/24/24 MR#: [id number] Acct: [id number] Name: JANETTE CAMPO AUGUST Rep #: [id number] : 1995 Provider: Dr. 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, early 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 fu *$20 Details: JANETTE CAMPO [...] - full term 7lbs 12oz Female epidural [facility] DM Jonah 01/09/21 Ulices 38 live - full term Male spinal [facility] D rJose De Jesus Evie Delivery Date: 09/04/17 Last Updated by: [place] [...] acute distress and well developed Orientation: alert [facility] Head: normal to inspection and normocephalic Ears: hearing grossly normal bilaterally and external ears normal Nose: external nose normal and nares normal Face and sinus: normal facial exam Neck Neck: normal visual inspection, no lymphadenopathy and trachea midline Thyroid: thyroid normal Resp Effort Inspection: normal respiratory effort Musc Other: gross (more content not included)... Normal [facility] Platelet countOrdered By: Miguel Angel Meza on 08-24-2024 Platelets (Bld) [#/Vol] 274 10*3/uL 150-450 [facility] RBC Auto (Bld) [#/Vol]Ordere d By: Cheryle Meza on 08-24-2024 RBC (Bld) [#/Vol] 4.74 10*6/uL 4.2-5.4 [facility] Serum beta 2 glycoprotein 1 IgA antibody detectionOrdered By: Cheryle Meza on 08-24-2024 Beta 2 glycoprotein 1 IgA Ql (S) <9 0-25 [facility] Comment on above: Result Units: GPI Ig [...] glycoprotein 1 IgG Ql (S) <9 0-20 [facility] Comment on above: Result Units: GPI Ig [...] glycoprotein 1 IgM Ql (S) <9 0-32 [facility] Comment on above: Result Units: GPI Ig [...] Qn (S) < 9 GPL U/mL 0-14 [facility] Comment on above: Negative: <15 Indete rminate: 15 - 20 Low-Med Positive: >20 - 80 High Positive: >80 TSH DL <= 0.005 mIU/L QnOrde red By: Cheryle Meza on 08-24-2024 TSH Qn 1.740 uIU/mL 0.300-4.200 [facility] Thrombin timeOrdered By: Shar Meza on 08-24-2024 Thrombin time Coag (PPP) [Time] 18.2 sec 0.0-23.0 [facility] Thyroid Stim Hormone (TSH)on 08-24-2024 TSH 1.740 uIU/mL Normal 0.300-4.200 [facility] Comment on above: Performed By: #### L 501.9520, L100.0100 ####[facility] [address] [place], [address] White blood cell (WBC) count Ordered By: Cheryle Meza on 08-24-2024 WBC (Bld) [#/Vol] 7.1 10*3/uL 4.4-11.0 [facility] Ferritinon 08-22-2024 Ferritin [Mass/Vol] 10 ng/mL Low 22-378 [facility] Comment on above: Order Comment: BRODERICK MONGE LLED TO ADD TO PREVIOUS SPECIMEN. CALLED CABRERA Performed By: #### L 503.6030, L503.6550 ####[facility] [address] [place], [address] Iron measurement (mass/mass) Ordered By: Cheryle Meza on 08-22-2024 Iron (Unsp spec) [Mass/Mass] 17 ug/dL Low 50-170 [facility] Iron+Iron Binding Capacityon 08-22-2024 Iron [Mass/Vol] 17 ug/dL Low 50-170 [facility] Comment on above: Order Comment: BRODERICK MONGE LLED TO ADD TO PREVIOUS SPECIMEN. CALLED CABRERA Performed By: #### L 503.6030, L503.6550 ####[facility] [address] [place], [address] IRON SATURATION 5.0 Low 13-59 [facility] Comment on above: Order Comment: BRODERICK MONGE LLED TO ADD TO PREVIOUS SPECIMEN. CALLED CABRERA Performed By: #### L 503.6030, L503.6550 ####[facility] [address] [place], [address] TIBC 374 ug/dL Normal 250-450 [facility] Comment on above: Order Comment: BRODERICK MONGE LLED TO ADD TO PREVIOUS SPECIMEN. CALLED CABRERA Performed By: #### L 503.6030, L503.6550 ####[facility] [address] [place], [place], [address] UIBC 357 ug/dL Normal 228-428 [facility] Comment on above: Order Comment: BRODERICK MONGE LLED TO ADD TO PREVIOUS SPECIMEN. CALLED CABRERA Performed By: #### L 503.6030, L503.6550 ####[facility] [address] [place], [place], [address] No Panel InformationOrdered By: Cheryle Meza on 08-22-2024 Unsaturated Iron Binding Capacity 357 ug/dL 228-428 [facility] Serum human chorionic gonado tropin detection for pregnancyOrdered By: Cheryle Meza on 08-22-2024 HCG ( test) Ql < 1 mIU/mL <9 [facility] Comment on above: Gestational Age0.2-1 Week: 5-50 mIU/mL1-2 Weeks: 50-500 mIU/mL2-3 Weeks: 100-5000 mIU/mL3-4 Weeks: 500-10,000 mIU/mL4-5 Weeks:1000-50,000 mIU/mL5-6 Weeks: 10,000-100,000 mIU/mL6-8 Weeks: 15,000-200,000 mIU/mL2-3 Months:10,000-100,000 mIU/mL Serum or plasma ferritin ulisses surement (mass/volume)Ordered By: Cheryle Meza on 08-22-2024 Ferritin [Mass/Vol] 10 ng/mL Low 22-378 [facility] Serum or plasma iron saturat ion measurement (mass fraction)Ordered By: Cheryle Meza on 08-22-2024 Iron saturation [Mass fraction] 5.0 % Low 13-59 [facility] hCG Titer Quant., Serumon HCG QUANT. < 1 Normal <9 non-preg [facility] Comment on above: Result Comment: Gest ational Age 0.2-1 Week: 5-50 mIU/mL 1-2 Weeks: 50-500 mIU/mL 2-3 Weeks: 100-5000 mIU/mL 3-4 Weeks: 500-10,000 mIU/mL 4-5 Weeks:1000-50,000 mIU/mL 5-6 Weeks: 10,000-100,000 mIU/mL 6-8 Weeks: 15,000-200,000 mIU/mL 2-3 Months:10,000-100,000 mIU/mL Performed By: #### L 700.8000 #### [facility] [address] [place], [address] Urgent Care Visit Reporton 0 - Urgent Care Visit Report [facility] [address], [address] [place] [address] OFFICE VISIT Date of Service: 03/20/24 MR#: [id number] Acct: [id number] Name: JANETTE CAMPO AUGUST Rep #: [id number] : 1995 Provider: KENDY castillo Age/Sex: 29/F Location: [facility] Status: Signed Intake Vital Signs 12/29/23 11:46 03/20/24 12:28 Height 5 ft BP 122/60 H Blood Pressure Location Lt brachial Position Sitting Respiration 17 Pulse 73 Pulse Source NIBP Temp 98.3 F Temp Source Oral Pulse Oximetry (%) 98 Oxygen Delivery Method room air Intake Visit Reasons: CONCERN FOR BRONCHITIS Chief Complaint: chest heaviness/burning, cough, SOB Invoice Classification Clerk Required: No Is patient in pain?: No Allergies No Known Allergies Allergy (Verified 03/20/24 12:28) Is last menstrual period known: No Post menopausal: No Patient : No Have you fallen in the past year?: No Nurse's Note: chest heaviness/burning, cough, SOB x 1 week without resolve. hx asthma--feels different. declines viral testing. [facility] Medical History Irritable bowel syndrome with diarrhea [...] home: Yes additional social history: - [employer] HPI HPI Chief Complaint: chest heaviness/burning, cough, SOB Details: JANETTE CAMPO, is a 29 F who presents to the office today for chest heaviness/burning sensation, cough, and shortness of breath of the last week. She acknowledges a history of asthma and feels this to be different. She did not declines viral testing. ROS Const Constitutional: Positive for abnormal sleep pattern ("felt underwater"); No body ache, chills, fatigue, fever(s), headache(s) or change in appetite Eyes Eyes: Positive for irritation ("itchy"); No blurry vision, change in vision, double vision, discharge, vision loss, dry eyes, bulging eyes, floaters, visual disturbances, eye pain, Light sensitivity, spots in vision, tunnel vision or other ENT ENT: Positive for ear or mastoid pain ("itching"- right); No ear discharge, ear pressure, tinnitus, [...] Psych Psychiatric: Positive for abnormal sleep pattern ("felt underwater") and No change in appetite Endo Endocrine: [...] nares nor (more content not included)... Normal [facility] Laboratory - Microbiology an d Antimicrobial susceptibilityon 05-22-2023 S. pyogenes Ag IA Ql (Unsp spec) Negative [facility] No Panel Informationon 05-21 Influenza Types A,B Rapid (Clinic) Pos FLU B&Neg FLU A [facility] Absolute lymphocyte countOrd ered By: Rhina Kulkarni on 03-18-2023 Lymphocytes Auto (Unsp spec) [#/Vol] 2.22 10*3/uL 0.83-4.51 [facility] Basophil percentageOrdered B y: Rhina Kulkarni on 03-18-2023 Basophils/100 WBC (Bld) 0.5 % 0-1 [facility] Eosinophils/100 WBC (Bld) 2.2 % 0-5 [facility] Neutrophils (Bld) [#/Vol] 3.0 10*3/uL 2.0-7.7 [facility] Neutrophils/100 WBC (Bld) 51.0 % 47-70 [facility] WBC (Bld) [#/Vol] 5.9 10*3/uL 4.4-11.0 [facility] Blood erythrocytes count (nu mber/volume)Ordered By: Rhina Kulkarni on 03-18-2023 RBC (Bld) [#/Vol] 4.56 10*6/uL 4.2-5.4 [facility] Blood hemoglobin measurement (mass/volume)Ordered By: Rhina Kulkarni on 03-18-2023 Hemoglobin (Bld) [Mass/Vol] 8.9 g/dL 12.0-15.0 [facility] Blood lymphocytes/100 leukoc ytesOrdered By: Rihna Kulkarni on 03-18-2023 Lymphocytes/100 WBC (Bld) 37.6 % 19-41 [facility] Blood monocytes/100 leukocyt esOrdered By: Rhina Kulkarni on 03-18-2023 Monocytes/100 WBC (Bld) 8.5 % 0-10 [facility] Blood platelet mean volumeOr dered By: Rhina Kulkarni on 03-18-2023 Platelet mean volume (Bld) [Entitic vol] 10.3 fL 6.2-12.0 [facility] Determination of erythrocyte mean corpuscular volume (MCV)Ordered By: Rhina Kulkarni on 03-18-2023 MCV (RBC) [Entitic vol] 69.1 fL 81-99 [facility] Hematocrit Auto (Bld) [Volum e fraction]Ordered By: Rhinatracee Kulkarni on 03-18-2023 Hematocrit (Bld) [Volume fraction] 31.5 % 37-47 [facility] Iron measurement (mass/mass) Ordered By: Rhina Kulkarni on 03-18-2023 Iron (Unsp spec) [Mass/Mass] 16 ug/dL 50-170 [facility] Laboratory - Hematology and Cell countsOrdered By: Rhina Kulkarni on 03-18-2023 Erythrocyte distribution width (RBC) [Entitic vol] 45.0 fL 35.1-43.9 [facility] Erythrocyte distribution width (RBC) [Ratio] 18.6 % 11.6-14.6 [facility] Immature granulocytes/100 WBC (Bld) 0.200 % 0.0-0.9 [facility] Comment on above: IG% - Immature Granu locytes (promyelocytes, myelocytes and metamyelocytes) > 1% indicates that a LEFT SHIFT is Present. MCH (RBC) [Entitic mass] 19.5 pg 27.0-32.0 [facility] Nucleated RBC/100 WBC (Bld) [Ratio] 0 % 0-5 [facility] MCHC Auto (RBC) [Mass/Vol]Or dered By: Rhina Kulkarni on 03-18-2023 MCHC (RBC) [Mass/Vol] 28.3 g/dL 32-36 [facility] No Panel InformationOrdered By: Rhina Kulkarni on 03-18-2023 Total Iron Binding Capacity 392 ug/dL 250-450 [facility] Platelets bldOrdered By: Burton Kulkarni on 03-18-2023 Platelets (Bld) [#/Vol] 293 10*3/uL 150-450 [facility] Serum or plasma ferritin ulisses surement (mass/volume)Ordered By: Rhina Kulkarni on 03-18-2023 Ferritin [Mass/Vol] 4 ng/mL 8-252 [facility] Serum or plasma iron saturat ion measurement (mass fraction)Ordered By: Rhina Kulkarni on 03-18-2023 Iron saturation [Mass fraction] 4.1 % 15.0-55.0 [facility] Absolute lymphocyte countOrd ered By: Rhina Kulkarni on 01-22-2023 Lymphocytes Auto (Unsp spec) [#/Vol] 2.42 10*3/uL 0.83-4.51 [facility] Basophil percentageOrdered B y: Rhina Kulkarni on 01-22-2023 Basophils/100 WBC (Bld) 0.6 % 0-1 [facility] Bilirubin [Mass/Vol] 0.40 mg/dL 0.20-1.00 [facility] Comment on above: For patients on eltr ombopag therapy, use of Dimension [place] TBIL is not recommended. Chloride [Moles/Vol] 109 mmol/L 98-107 [facility] Cholesterol [Mass/Vol] 134 mg/dL <200 [facility] Comment on above: <200 mg/dL Desirable 200-240 mg/dL Borderline >240 mg/dL High Risk Eosinophils/100 WBC (Bld) 2.1 % 0-5 [facility] Glucose [Mass/Vol] 100 mg/dL 74-106 [facility] Comment on above: Fasting Glucose resu lt from 100 to 125 mg/dL suggests IMPAIRED HOMEOSTASIS per A.D.A. criteria. Neutrophils (Bld) [#/Vol] 3.6 10*3/uL 2.0-7.7 [facility] Neutrophils/100 WBC (Bld) 52.8 % 47-70 [facility] Potassium [Moles/Vol] 3.9 mmol/L 3.5-5.1 [facility] Protein [Mass/Vol] 7.4 g/dL 6.4-8.2 [facility] Sodium [Moles/Vol] 141 mmol/L 136-145 [facility] Triglyceride [Mass/Vol] 80 mg/dL <199 [facility] Comment on above: The drugs N-Acetylcy steine and Metamizole may falsely depress this assay.Serum Triglycerides Reference Interval Normal <150 mg/dL Borderline high 150 - 199 mg/dL High 200 - 499 mg/dL Very High > or = 500 mg/dL WBC (Bld) [#/Vol] 6.7 10*3/uL 4.4-11.0 [facility] Blood erythrocytes count (nu mber/volume)Ordered By: Rhina Kulkarni on 01-22-2023 RBC (Bld) [#/Vol] 4.54 10*6/uL 4.2-5.4 [facility] Blood hemoglobin measurement (mass/volume)Ordered By: Rhina Kulkarni on 01-22-2023 Hemoglobin (Bld) [Mass/Vol] 9.1 g/dL 12.0-15.0 [facility] Blood lymphocytes/100 leukoc ytesOrdered By: Rhina Kulkarni on 01-22-2023 Lymphocytes/100 WBC (Bld) 35.9 % 19-41 [facility] Blood monocytes/100 leukocyt esOrdered By: Rhina Kulkarni on 01-22-2023 Monocytes/100 WBC (Bld) 8.5 % 0-10 [facility] Blood platelet mean volumeOr dered By: Rhina Kulkarni on 01-22-2023 Platelet mean volume (Bld) [Entitic vol] 10.1 fL 6.2-12.0 [facility] Determination of erythrocyte mean corpuscular volume (MCV)Ordered By: Rhina Kulkarni on 11-16-2023 MCV (RBC) [Entitic vol] 70.7 fL 81-99 [facility] Hematocrit Auto (Bld) [Volum e fraction]Ordered By: Rhina Kulkarni on 01-22-2023 Hematocrit (Bld) [Volume fraction] 32.1 % 37-47 [facility] Iron measurement (mass/mass) Ordered By: Rhina Kulkarni on 01-22-2023 Iron (Unsp spec) [Mass/Mass] 23 ug/dL 50-170 [facility] Laboratory - Chemistry and C hemistry - challengeOrdered By: Rhina Kulkarni on 01-22-2023 ALP [Catalytic activity/Vol] 91 U/L 45-117 [facility] ALT [Catalytic activity/Vol] 22 U/L 13-56 [facility] CO2 [Moles/Vol] 28.0 mmol/L 21.0-32.0 [facility] Globulin (S) [Mass/Vol] 4.0 g/dL 2.2-4.2 [facility] Urea nitrogen/Creatinine [Mass ratio] 16.5 mg/mg 10-20 [facility] Laboratory - Hematology and Cell countsOrdered By: Rhinatracee Kulkarni on 01-22-2023 Erythrocyte distribution width (RBC) [Entitic vol] 47.0 fL 35.1-43.9 [facility] Erythrocyte distribution width (RBC) [Ratio] 18.7 % 11.6-14.6 [facility] Immature granulocytes/100 WBC (Bld) 0.100 % 0.0-0.9 [facility] Comment on above: IG% - Immature Granu locytes (promyelocytes, myelocytes and metamyelocytes) > 1% indicates that a LEFT SHIFT is Present. MCH (RBC) [Entitic mass] 20.0 pg 27.0-32.0 [facility] Nucleated RBC/100 WBC (Bld) [Ratio] 0 % 0-5 [facility] MCHC Auto (RBC) [Mass/Vol]Or dered By: Rhina Kulkarni on 01-22-2023 MCHC (RBC) [Mass/Vol] 28.3 g/dL 32-36 [facility] No Panel InformationOrdered By: Rhina Kulkarni on 01-22-2023 Estimated GFR (MDRD) Amer 111 mL/min >60 [facility] Comment on above: GFR Calc Estimated GFR (MDRD) Non-Af Amer 92 mL/min >60 [facility] Comment on above: Non- GFR Calc Total Iron Binding Capacity 420 ug/dL 250-450 [facility] Vitamin D 25-Hydroxy 35.2 ng/mL [facility] Comment on above: Vitamin D 25(OH) Sta tus Range Deficiency <20 ng/mL (50nmol/L) Insufficiency 20 - 30 ng/mL (50 - 75 nmol/L) Sufficiency 30 - 100 ng/mL (75 - 250 nmol/L) Toxicity >100 ng/mL (>250 nmol/L) Platelets bldOrdered By: Burton Kulkarni on 01-22-2023 Platelets (Bld) [#/Vol] 302 10*3/uL 150-450 [facility] Serum or plasma albumin morales urement (mass/volume)Ordered By: Rhina Kulkarni on 01-22-2023 Albumin [Mass/Vol] 3.4 g/dL 3.2-5.0 [facility] Serum or plasma albumin/glob ulin mass ratioOrdered By: Rhina Kulkarni on 01-22-2023 Albumin/Globulin [Mass ratio] 0.8 {ratio} 0.9-2.4 [facility] Serum or plasma calcium mroales urement (mass/volume)Ordered By: Rhina Kulkarni on 01-22-2023 Calcium [Mass/Vol] 8.5 mg/dL 8.5-10.1 [facility] Serum or plasma cholesterol in HDL measurement (mass/volume)Ordered By: Rhina Kulkarni on 01-22-2023 Cholesterol in HDL [Mass/Vol] 61 mg/dL >40 [facility] Comment on above: The drugs N-Acetylcy steine and Metamizole may falsely depress this assay. Reference Range HDL <40 mg/dL Low HDL Cholesterol HDL >or= 60 mg/dL High HDL Cholesterol Serum or plasma cholesterol in VLDL measurement (mass/volume)Ordered By: Rhina Kulkarni on 01-22-2023 Cholesterol in VLDL [Mass/Vol] 16 mg/dL 5-40 [facility] Serum or plasma creatinine m easurement (mass/volume)Ordered By: Rhina Kulkarni on 01-22-2023 Creatinine [Mass/Vol] 0.79 mg/dL 0.55-1.02 [facility] Comment on above: The validity of the calculated GFR & GFRAA in patients over 70 years has not been determined. Clinical correlation is essential. Serum or plasma ferritin ulisses surement (mass/volume)Ordered By: Rhina Kulkarni on 01-22-2023 Ferritin [Mass/Vol] 5 ng/mL 8-252 [facility] Serum or plasma iron saturat ion measurement (mass fraction)Ordered By: Rhina Kulkarni on 01-22-2023 Iron saturation [Mass fraction] 5.5 % 15.0-55.0 [facility] Serum or plasma low density lipoprotein (LDL) cholesterol measurement (mass/volume)Ordered By: Rhinamanuel Kulkarni on 01-22-2023 Cholesterol in LDL [Mass/Vol] 57 mg/dL 0-130 [facility] Serum or plasma urea nitroge n measurement (mass/volume)Ordered By: Rhina Kulkarni on 01-22-2023 Urea nitrogen [Mass/Vol] 13 mg/dL 7-18 [facility] Thin prep Papanicolaou smear with manual screeningOrdered By: Rhina Kulkarni on 01-22-2023 Thin prep Papanicolaou smear with manual screening 13 U/L 15-37 [facility] Thin prep Papanicolaou smear with manual screening 4 5-15 [facility] Absolute lymphocyte counton 01-14-2022 Lymphocytes Auto (Unsp spec) [#/Vol] 2.34 10*3/uL 0.83-4.51 [facility] Work Phone: Atypical perinuclear antineu trophil cytoplasmic antibodies measurementon 01-14-2022 Neutrophil cytoplasmic Ab.perinuclear.atypic al IF (S) [Titer] <1:20 titer Neg:<1:20 [facility] Work Phone: Comment on above: The atypical pANCA p attern has been observed in asignificant percentage of patients with ulcerative colitis,primary sclerosing cholangitis and autoimmune hepatitis. Basophil percentageon 2021 Basophils/100 WBC (Bld) 0.3 % 0-1 [facility] Work Phone: Eosinophils/100 WBC (Bld) 1.2 % 0-5 [facility] Work Phone: Neutrophils (Bld) [#/Vol] 3.6 10*3/uL 2.0-7.7 [facility] Work Phone: Neutrophils/100 WBC (Bld) 54.2 % 47-70 [facility] Work Phone: WBC (Bld) [#/Vol] 6.6 10*3/uL 4.4-11.0 [facility] Work Phone: Blood erythrocytes count (nu mber/volume)on 01-14-2022 RBC (Bld) [#/Vol] 4.70 10*6/uL 4.2-5.4 [facility] Work Phone: Blood hemoglobin measurement (mass/volume)on 01-14-2022 Hemoglobin (Bld) [Mass/Vol] 11.4 g/dL 12.0-15.0 [facility] Work Phone: Blood lymphocytes/100 leukoc yteson 01-14-2022 Lymphocytes/100 WBC (Bld) 35.5 % 19-41 [facility] Work Phone: Blood monocytes/100 leukocyt eson 01-14-2022 Monocytes/100 WBC (Bld) 8.6 % 0-10 [facility] Work Phone: Blood platelet mean volumeon 01-14-2022 Platelet mean volume (Bld) [Entitic vol] 10.3 fL 6.2-12.0 [facility] Work Phone: Determination of erythrocyte mean corpuscular volume (MCV)on 01-14-2022 MCV (RBC) [Entitic vol] 76.6 fL 81-99 [facility] Work Phone: Hematocrit Auto (Bld) [Volum e fraction]on 01-14-2022 Hematocrit (Bld) [Volume fraction] 36.0 % 37-47 [facility] Work Phone: Laboratory - Hematology and Cell countson 01-14-2022 Erythrocyte distribution width (RBC) [Entitic vol] 41.0 fL 35.1-43.9 [facility] Work Phone: Erythrocyte distribution width (RBC) [Ratio] 15.0 % 11.6-14.6 [facility] Work Phone: Immature granulocytes/100 WBC (Bld) 0.200 % 0.0-0.9 [facility] Work Phone: Comment on above: IG% - Immature Granu locytes (promyelocytes, myelocytes and metamyelocytes) > 1% indicates that a LEFT SHIFT is Present. MCH (RBC) [Entitic mass] 24.3 pg 27.0-32.0 [facility] Work Phone: Nucleated RBC/100 WBC (Bld) [Ratio] 0 % 0-5 [facility] Work Phone: MCHC Auto (RBC) [Mass/Vol]on 01-14-2022 MCHC (RBC) [Mass/Vol] 31.7 g/dL 32-36 [facility] Work Phone: No Panel Informationon 01-14 Immunoglobulin E 56 IU/mL 6-495 [facility] Work Phone: Comment on above: Performed at: [address] [id number] Director: Charles Daigle PhD, Phone: [phone] at: [employer] [facility] [employer] [facility] [facility] [address] [id number] Director: Blue Araya MD, Phone: [phone] Platelets bldon 01-14-2022 Platelets (Bld) [#/Vol] 267 10*3/uL 150-450 [facility] Work Phone: Serum Aspergillus flavus ant ibody detection by immunodiffusionon 01-14-2022 A. flavus Ab Immune diff Ql (S) Negative Neg:<1:1 [facility] Work Phone: Serum Aspergillus fumigatus antibody detection by immunodiffusionon 01-14-2022 A. fumigatus Ab Immune diff Ql (S) Negative Neg:<1:1 [facility] Work Phone: Serum Aspergillus niger anti body detection by immunodiffusionon 01-14-2022 A. niger Ab Immune diff Ql (S) Negative Neg:<1:1 [facility] Work Phone: Serum classic neutrophil cyt oplasmic antibody assay (units/volume)on 01-14-2022 Neutrophil cytoplasmic Ab.classic Qn (S) <1:20 titer Neg:<1:20 [facility] Work Phone: Serum perinuclear neutrophil cytoplasmic antibody titer by immunofluorescenceon 01-14-2022 Neutrophil cytoplasmic Ab.perinuclear IF (S) [Titer] <1:20 titer Neg:<1:20 [facility] Work Phone: Comment on above: The presence of posi tive fluorescence exhibiting P-ANCA orC- ANCA patterns alone is not specific for the diagnosis ofWegener's Granulomatosis (WG) or microscopic polyangiitis.Decisions about treatment should not be based solely onANCA IFA results. The [employer] ANCA Group Consensusrecommends follow up testing of positive sera with both TN-3 and MPO-ANCA enzyme immunoassays. As many as 5% serumsamples are positive only by EIA. Ref. AM J Clin [id number];111:507-513. Absolute lymphocyte counton 11-19-2021 Lymphocytes Auto (Unsp spec) [#/Vol] 3.74 10*3/uL 0.83-4.51 [facility] Work Phone: [phone] Basophil percentageon 2021 Basophils/100 WBC (Bld) 0.3 % 0-1 [facility] Work Phone: Bilirubin [Mass/Vol] 0.30 mg/dL 0.20-1.00 [facility] Work Phone: Comment on above: For patients on eltr ombopag therapy, use of Dimension [place] TBIL is not recommended. Chloride [Moles/Vol] 106 mmol/L 98-107 [facility] Work Phone: Cholesterol [Mass/Vol] 167 mg/dL <200 [facility] Work Phone: [phone] Comment on above: <200 mg/dL Desirable 200-240 mg/dL Borderline >240 mg/dL High Risk Eosinophils/100 WBC (Bld) 1.8 % 0-5 [facility] Work Phone: [phone] Glucose [Mass/Vol] 93 mg/dL 74-106 [facility] Work Phone: [phone] Neutrophils (Bld) [#/Vol] 6.5 10*3/uL 2.0-7.7 [facility] Work Phone: [phone] Neutrophils/100 WBC (Bld) 57.3 % 47-70 [facility] Work Phone: [phone] Potassium [Moles/Vol] 4.0 mmol/L 3.5-5.1 [facility] Work Phone: [phone] Protein [Mass/Vol] 7.7 g/dL 6.4-8.2 [facility] Work Phone: [phone] Sodium [Moles/Vol] 138 mmol/L 136-145 [facility] Work Phone: [phone] Triglyceride [Mass/Vol] 243 mg/dL <199 [facility] Work Phone: [phone] Comment on above: The drugs N-Acetylcy steine and Metamizole may falsely depress this assay.Serum Triglycerides Reference Interval Normal <150 mg/dL Borderline high 150 - 199 mg/dL High 200 - 499 mg/dL Very High > or = 500 mg/dL WBC (Bld) [#/Vol] 11.3 10*3/uL 4.4-11.0 [facility] Work Phone: [phone] Blood erythrocytes count (nu mber/volume)on 11-19-2021 RBC (Bld) [#/Vol] 5.00 10*6/uL 4.2-5.4 [facility] Work Phone: [phone] Blood hemoglobin measurement (mass/volume)on 11-19-2021 Hemoglobin (Bld) [Mass/Vol] 12.5 g/dL 12.0-15.0 [facility] Work Phone: Blood lymphocytes/100 leukoc yteson 11-19-2021 Lymphocytes/100 WBC (Bld) 33.2 % 19-41 [facility] Work Phone: Blood monocytes/100 leukocyt eson 11-19-2021 Monocytes/100 WBC (Bld) 7.0 % 0-10 [facility] Work Phone: Blood platelet mean volumeon 11-19-2021 Platelet mean volume (Bld) [Entitic vol] 10.4 fL 6.2-12.0 [facility] Work Phone: [phone] Determination of erythrocyte mean corpuscular volume (MCV)on 11-19-2021 MCV (RBC) [Entitic vol] 78.0 fL 81-99 [facility] Work Phone: [phone] Erythrocyte sedimentation ra martha 11-19-2021 ESR (Bld) [Velocity] 47 mm/h 0-30 [facility] Work Phone: Hematocrit Auto (Bld) [Volum e fraction]on 11-19-2021 Hematocrit (Bld) [Volume fraction] 39.0 % 37-47 [facility] Work Phone: [phone] Iron measurement (mass/mass) on 11-19-2021 Iron (Unsp spec) [Mass/Mass] 38 ug/dL 50-170 [facility] Work Phone: [phone] Laboratory - Chemistry and C hemistry - challengeon 11-19-2021 ALP [Catalytic activity/Vol] 98 U/L 45-117 [facility] Work Phone: ALT [Catalytic activity/Vol] 27 U/L 13-56 [facility] Work Phone: CO2 [Moles/Vol] 25.0 mmol/L 21.0-32.0 [facility] Work Phone: Free T4 [Mass/Vol] 1.09 ng/dL 0.76-1.46 [facility] Work Phone: [phone] Globulin (S) [Mass/Vol] 4.3 g/dL 2.2-4.2 [facility] Work Phone: Urea nitrogen/Creatinine [Mass ratio] 16.1 mg/mg 10-20 [facility] Work Phone: Laboratory - Hematology and Cell countson 11-19-2021 Erythrocyte distribution width (RBC) [Entitic vol] 41.1 fL 35.1-43.9 [facility] Work Phone: Erythrocyte distribution width (RBC) [Ratio] 14.7 % 11.6-14.6 [facility] Work Phone: Immature granulocytes/100 WBC (Bld) 0.400 % 0.0-0.9 [facility] Work Phone: Comment on above: IG% - Immature Granu locytes (promyelocytes, myelocytes and metamyelocytes) > 1% indicates that a LEFT SHIFT is Present. MCH (RBC) [Entitic mass] 25.0 pg 27.0-32.0 [facility] Work Phone: Nucleated RBC/100 WBC (Bld) [Ratio] 0 % 0-5 [facility] Work Phone: MCHC Auto (RBC) [Mass/Vol]on 11-19-2021 MCHC (RBC) [Mass/Vol] 32.1 g/dL 32-36 [facility] Work Phone: No Panel Informationon 11-19 Anti-Gliadin IgA Antibody 3 units 0-19 [facility] Work Phone: Comment on above: Negative 0 - 19 Weak Positive 20 - 30 Moderate to Strong Positive >30 Anti-Gliadin IgG Antibody 2 units 0-19 [facility] Work Phone: Comment on above: Negative 0 - 19 Weak Positive 20 - 30 Moderate to Strong Positive >30 Endomysial IgA Antibody Negative Negative [facility] Work Phone: Estimated GFR (MDRD) Amer 100 mL/min >60 [facility] Work Phone: Comment on above: GFR Calc Estimated GFR (MDRD) Non-Af Amer 83 mL/min >60 [facility] Work Phone: Comment on above: Non- GFR Calc Free Triiodothyronine (T3) pg/dL 3.2 pg/mL 2.18-3.98 [facility] Work Phone: Thyroid Stimulating Hormone (TSH) 1.96 uIU/mL 0.358-3.74 [facility] Work Phone: Tissue Transglutaminase IgG Ab <2 U/mL 0-5 [facility] Work Phone: Comment on above: Negative 0 - 5 Weak Positive 6 - 9 Positive >9 Total Iron Binding Capacity 358 ug/dL 250-450 [facility] Work Phone: Vitamin D 25-Hydroxy 15.6 ng/mL [facility] Work Phone: Comment on above: Vitamin D 25(OH) Sta tus Range Deficiency <20 ng/mL (50nmol/L) Insufficiency 20 - 30 ng/mL (50 - 75 nmol/L) Sufficiency 30 - 100 ng/mL (75 - 250 nmol/L) Toxicity >100 ng/mL (>250 nmol/L) Platelets bldon 11-19-2021 Platelets (Bld) [#/Vol] 347 10*3/uL 150-450 [facility] Work Phone: Serum IgA measurement (units /volume)on 11-19-2021 IgA Qn (S) 325 mg/dL 87-352 [facility] Work Phone: Comment on above: Performed at: [address] [id number] Director: Charles Daigle PhD, Phone: [phone] Serum or plasma C reactive p rotein measurement (mass/volume)on 11-19-2021 CRP [Mass/Vol] 8.76 mg/L 0.0-3.0 [facility] Work Phone: Comment on above: C-Reactive Protein ( CRP) provides useful information for thediagnosis, therapy and monitoring of inflammatory processesand associated diseases. For the evaluation of Relative Riskfor Cardiovascular Disease, a High Sensitivity CRP (HSCRP)should be ordered. Serum or plasma albumin morales urement (mass/volume)on 11-19-2021 Albumin [Mass/Vol] 3.4 g/dL 3.2-5.0 [facility] Work Phone: Serum or plasma albumin/glob ulin mass ratioon 11-19-2021 Albumin/Globulin [Mass ratio] 0.8 {ratio} 0.9-2.4 [facility] Work Phone: Serum or plasma calcium morales urement (mass/volume)on 11-19-2021 Calcium [Mass/Vol] 9.4 mg/dL 8.5-10.1 [facility] Work Phone: Serum or plasma cholesterol in HDL measurement (mass/volume)on 11-19-2021 Cholesterol in HDL [Mass/Vol] 45 mg/dL >40 [facility] Work Phone: Comment on above: The drugs N-Acetylcy steine and Metamizole may falsely depress this assay. Reference Range HDL <40 mg/dL Low HDL Cholesterol HDL >or= 60 mg/dL High HDL Cholesterol Serum or plasma cholesterol in VLDL measurement (mass/volume)on 11-19-2021 Cholesterol in VLDL [Mass/Vol] 49 mg/dL 5-40 [facility] Work Phone: Serum or plasma creatinine m easurement (mass/volume)on 11-19-2021 Creatinine [Mass/Vol] 0.87 mg/dL 0.55-1.02 [facility] Work Phone: Comment on above: The validity of the calculated GFR & GFRAA in patients over 70 years has not been determined. Clinical correlation is essential. Serum or plasma ferritin ulisses surement (mass/volume)on 11-19-2021 Ferritin [Mass/Vol] 16 ng/mL 8-252 [facility] Work Phone: Serum or plasma iron saturat ion measurement (mass fraction)on 11-19-2021 Iron saturation [Mass fraction] 10.6 % 15.0-55.0 [facility] Work Phone: Serum or plasma low density lipoprotein (LDL) cholesterol measurement (mass/volume)on 11-19-2021 Cholesterol in LDL [Mass/Vol] 73 mg/dL 0-130 [facility] Work Phone: Serum or plasma urea nitroge n measurement (mass/volume)on 11-19-2021 Urea nitrogen [Mass/Vol] 14 mg/dL 7-18 [facility] Work Phone: Serum tissue transglutaminas e IgA antibody assay (units/volume)on 11-19-2021 tTG IgA Qn (S) <2 U/mL 0-3 [facility] Work Phone: Comment on above: Negative 0 - 3 Weak Positive 4 - 10 Positive >10 Tissue Transglutaminase (tTG) has been identified as the endomysial antigen. Studies have demonstr- ated that endomysial IgA antibodies have over 99% specificity for gluten sensitive enteropathy. Thin prep Papanicolaou smear with manual screeningon 11-19-2021 Thin prep Papanicolaou smear with manual screening 12 U/L 15-37 [facility] Work Phone: Thin prep Papanicolaou smear with manual screening 7 5-15 [facility] Work Phone: Laboratory - Chemistry and C hemistry - challengeon 07-08-2021 HCG ( test) Ql (U) Negative [facility] Work Phone: Comment on above: Very dilute urine sp ecimens, as indicated by a low specificgravity, may not contain call center representative levels of hCG. If is still suspected, a first morning urinespecimen should be collected 48 hours later and tested. Laboratory - Microbiology an d Antimicrobial susceptibilityon 07-04-2021 SARS-CoV-2 (COVID-19) RNA DAVE+probe Ql (Unsp spec) Not detected Not Detect [facility] Work Phone: Comment on above: Normal Reference Ran ge: Not DetectedMethod:(RT-PCR) real-time reverse transcriptase PCRLuminex MICHAEL Instrument*The Food and Drug Administration (FDA) has issued an Emergency Use Authorization (EAU) for the [employer] SARS-CoV-2 Assay for the rapid detection of the virus that causes COVID-19. This test has been validated, but the [facility] of this validation is pending.*Negative [...] Auto (Unsp spec) [#/Vol] 2.73 10*3/uL 0.83-4.51 [facility] Work Phone: Basophil percentageon 2021 Basophils/100 WBC (Bld) 0.5 % 0-1 [facility] Work Phone: Chloride [Moles/Vol] 103 mmol/L 98-107 [facility] Work Phone: Eosinophils/100 WBC (Bld) 2.6 % 0-5 [facility] Work Phone: Glucose [Mass/Vol] 106 mg/dL 74-106 [facility] Work Phone: Comment on above: Fasting Glucose resu lt from 100 to 125 mg/dL suggests IMPAIRED HOMEOSTASIS per A.D.A. criteria. Neutrophils (Bld) [#/Vol] 4.1 10*3/uL 2.0-7.7 [facility] Work Phone: Neutrophils/100 WBC (Bld) 52.2 % 47-70 [facility] Work Phone: Potassium [Moles/Vol] 3.9 mmol/L 3.5-5.1 [facility] Work Phone: [phone] Comment on above: Slight Hemolysis, Re sult may be falsely increased. Sodium [Moles/Vol] 135 mmol/L 136-145 [facility] Work Phone: WBC (Bld) [#/Vol] 7.8 10*3/uL 4.4-11.0 [facility] Work Phone: Blood erythrocytes count (nu mber/volume)on 05-28-2021 RBC (Bld) [#/Vol] 4.66 10*6/uL 4.2-5.4 [facility] Work Phone: Blood hemoglobin measurement (mass/volume)on 05-28-2021 Hemoglobin (Bld) [Mass/Vol] 13.1 g/dL 12.0-15.0 [facility] Work Phone: Blood lymphocytes/100 leukoc yteson 05-28-2021 Lymphocytes/100 WBC (Bld) 34.9 % 19-41 [facility] Work Phone: Blood monocytes/100 leukocyt eson 05-28-2021 Monocytes/100 WBC (Bld) 9.5 % 0-10 [facility] Work Phone: Blood platelet mean volumeon 05-28-2021 Platelet mean volume (Bld) [Entitic vol] 10.3 fL 6.2-12.0 [facility] Work Phone: Determination of erythrocyte mean corpuscular volume (MCV)on 05-28-2021 MCV (RBC) [Entitic vol] 81.1 fL 81-99 [facility] Work Phone: Hematocrit Auto (Bld) [Volum e fraction]on 05-28-2021 Hematocrit (Bld) [Volume fraction] 37.8 % 37-47 [facility] Work Phone: Laboratory - Chemistry and C hemistry - challengeon 05-28-2021 CO2 [Moles/Vol] 26.0 mmol/L 21.0-32.0 [facility] Work Phone: Urea nitrogen/Creatinine [Mass ratio] 8.3 mg/mg 10-20 [facility] Work Phone: Laboratory - Hematology and Cell countson 05-28-2021 Erythrocyte distribution width (RBC) [Entitic vol] 39.8 fL 35.1-43.9 [facility] Work Phone: Erythrocyte distribution width (RBC) [Ratio] 13.6 % 11.6-14.6 [facility] Work Phone: Immature granulocytes/100 WBC (Bld) 0.300 % 0.0-0.9 [facility] Work Phone: Comment on above: IG% - Immature Granu locytes (promyelocytes, myelocytes and metamyelocytes) > 1% indicates that a LEFT SHIFT is Present. MCH (RBC) [Entitic mass] 28.1 pg 27.0-32.0 [facility] Work Phone: Nucleated RBC/100 WBC (Bld) [Ratio] 0 % 0-5 [facility] Work Phone: MCHC Auto (RBC) [Mass/Vol]on 05-28-2021 MCHC (RBC) [Mass/Vol] 34.7 g/dL 32-36 [facility] Work Phone: No Panel Informationon 05-28 Estimated Creatinine Clearance Calc 84.30 ml/min [facility] Work Phone: Estimated GFR (MDRD) Amer 125 mL/min >60 [facility] Work Phone: Comment on above: GFR Calc Estimated GFR (MDRD) Non-Af Amer 103 mL/min >60 [facility] Work Phone: Comment on above: Non- GFR Calc Platelets bldon 05-28-2021 Platelets (Bld) [#/Vol] 242 10*3/uL 150-450 [facility] Work Phone: Serum or plasma calcium morales urement (mass/volume)on 05-28-2021 Calcium [Mass/Vol] 8.6 mg/dL 8.5-10.1 [facility] Work Phone: Serum or plasma creatinine m easurement (mass/volume)on 05-28-2021 Creatinine [Mass/Vol] 0.72 mg/dL 0.55-1.02 [facility] Work Phone: Comment on above: The validity of the calculated GFR & GFRAA in patients over 70 years has not been determined. Clinical correlation is essential. Serum or plasma urea nitroge n measurement (mass/volume)on 05-28-2021 Urea nitrogen [Mass/Vol] 6 mg/dL 7-18 [facility] Work Phone: [phone] Thin prep Papanicolaou smear with manual screeningon 05-28-2021 Thin prep Papanicolaou smear with manual screening 6 5-15 [facility] Work Phone: Absolute lymphocyte counton 02-06-2021 Lymphocytes Auto (Unsp spec) [#/Vol] 2.80 10*3/uL 0.83-4.51 [facility] Work Phone: Basophil percentageon 2020 Eosinophils/100 WBC (Bld) 5.0 % 0-5 [facility] Work Phone: Neutrophils (Bld) [#/Vol] 4.8 10*3/uL 2.0-7.7 [facility] Work Phone: WBC (Bld) [#/Vol] 8.6 10*3/uL 4.4-11.0 [facility] Work Phone: Blood erythrocytes count (nu mber/volume)on 02-06-2021 RBC (Bld) [#/Vol] 4.83 10*6/uL 4.2-5.4 [facility] Work Phone: Blood hemoglobin measurement (mass/volume)on 02-06-2021 Hemoglobin (Bld) [Mass/Vol] 13.7 g/dL 12.0-15.0 [facility] Work Phone: Blood lymphocytes/100 leukoc yteson 02-06-2021 Lymphocytes/100 WBC (Bld) 32.5 % 19-41 [facility] Work Phone: Blood monocytes/100 leukocyt eson 02-06-2021 Monocytes/100 WBC (Bld) 6.3 % 0-10 [facility] Work Phone: Blood platelet mean volumeon 12-01-2021 Platelet mean volume (Bld) [Entitic vol] 10.3 fL 6.2-12.0 [facility] Work Phone: [phone] Determination of erythrocyte mean corpuscular volume (MCV)on 02-06-2021 MCV (RBC) [Entitic vol] 84.5 fL 81-99 [facility] Work Phone: [phone] Hematocrit Auto (Bld) [Volum e fraction]on 02-06-2021 Hematocrit (Bld) [Volume fraction] 40.8 % 37-47 [facility] Work Phone: [phone] Laboratory - Hematology and Cell countson 02-06-2021 Basophils/100 WBC (Unsp spec) 0.3 % 0-1 [facility] Work Phone: [phone] Erythrocyte distribution width (RBC) [Entitic vol] 41.2 fL 35.1-43.9 [facility] Work Phone: [phone] Erythrocyte distribution width (RBC) [Ratio] 13.3 % 11.6-14.6 [facility] Work Phone: [phone] Immature granulocytes/100 WBC (Bld) 0.200 % 0.0-0.9 [facility] Work Phone: [phone] Comment on above: IG% - Immature Granu locytes (promyelocytes, myelocytes and metamyelocytes) > 1% indicates that a LEFT SHIFT is Present. MCH (RBC) [Entitic mass] 28.4 pg 27.0-32.0 [facility] Work Phone: [phone] Neutrophils/100 WBC (Bld) 55.7 % 47-70 [facility] Work Phone: [phone] Nucleated RBC/100 WBC (Bld) [Ratio] 0 % 0-5 [facility] Work Phone: [phone] Laboratory - Microbiology an d Antimicrobial susceptibilityon 02-06-2021 SARS-CoV-2 (COVID-19) RNA DAVE+probe Ql (Unsp spec) Not detected Not Detect [facility] Work Phone: Comment on above: Normal Reference Ran ge: Not DetectedMethod:(RT-PCR) real-time reverse transcriptase PCRLuminex MICHAEL Instrument*The Food and Drug Administration (FDA) has issued an Emergency Use Authorization (EAU) for the MIC[employer]EL SARS-CoV-2 Assay for the rapid detection of [...] 02-06-2021 MCHC (RBC) [Mass/Vol] 33.6 g/dL 32-36 [facility] Work Phone: Platelets bldon 02-06-2021 Platelets (Bld) [#/Vol] 257 10*3/uL 150-450 [facility] Work Phone: Bacteria identified Cx Nom ( Wound)on 02-04-2021 Wound Culture Corynebacterium amycolatum [facility] Work Phone: Wound Culture Enterococcus faecalis [facility] Work Phone: Wound Culture Escherichia coli [facility] Work Phone: Gram stain for investigation of transfusion reactionon 02-04-2021 Microscopic observation Gram stain Nom (Unsp spec) [facility] Work Phone: Progress Noteon 09-06-2020 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 Interface Message Text Maternal Medicine Consult [...] History: Procedure Laterality Date SECTION, LOW TRANSVERSE 2017 CHOLECYSTECTOMY COLONOSCOPY MYRINGOTOMY TOE SURGERY TONSILLECTOMY UPPER GASTROINTESTINAL ENDOSCOPY No Known Allergies Social History Socioeconomic History Marital status: Spouse name: Jonah Number of children: One Occupational History Works in [employer]; Post-i Tobacco Use Smoking status: Never Smoker Smokeless [...] No Muscular Dystrophy No Cystic Fibrosis No Harlan's Chorea No Intellectual Disability/Autism No Metabolic Disorder [...] Palpations: Abd (more content not included)... Normal [facility] Vital Signs Date Time Vital Sign Value Performing Clinician Lucila au 12-08-2024 15:55-0400 Body temperature 97.6 [degF] Dr. Rhina Kulkarni MD Work Phone: [facility] 12-08-2024 15:55-0400 Diastolic blood pressure 70 mm[Hg] Dr. Rhina Kulkarni MD Work Phone: [facility] 12-08-2024 15:55-0400 Heart rate 88 /min Dr. Rhina Kulkarni MD Work Phone: [facility] 12-08-2024 15:55-0400 Respiratory rate 16 /min Dr. Rhina Kulkarni MD Work Phone: [facility] 12-08-2024 15:55-0400 SaO2% (BldA) [Mass fraction] 98 % Dr. Rhina Kulkarni MD Work Phone: [facility] 12-08-2024 15:55-0400 Systolic blood pressure 119 mm[Hg] Dr. Rhina Kulkarni MD Work Phone: [facility] 12-08-2024 14:28-0400 Body height 152.[address] Rhina Kulkarni MD Work Phone: [facility] 12-08-2024 14:28-0400 Body mass index (BMI) [Ratio] 47.8 kg/m2 Dr. Rhina Kulkarni MD Work Phone: [facility] 12-08-2024 14:28-0400 Body weight 111.[address] Rhina Kulkarni MD Work Phone: [facility] 12-07-2024 10:56-0400 Body height 152.[address] Rhina Kulkarni MD Work Phone: [facility] 12-07-2024 10:56-0400 Body mass index (BMI) [Ratio] 47.9 kg/m2 Dr. Rhina Kulkarni MD Work Phone: [facility] 12-07-2024 10:56-0400 Body weight 111.[address] Rhina Kulkarni MD Work Phone: [facility] 12-07-2024 10:56-0400 Diastolic blood pressure 82 mm[Hg] Dr. Rhina Kulkarni MD Work Phone: [facility] 12-07-2024 10:56-0400 Systolic blood pressure 123 mm[Hg] Dr. Rhina Kulkarni MD Work Phone: [facility] 11-29-2024 10:20-0400 Body height 152.[address] Rhina Kulkarni MD Work Phone: [facility] 11-29-2024 10:20-0400 Body mass index (BMI) [Ratio] 47.9 kg/m2 Dr. Rhina Kulkarni MD Work Phone: [facility] 11-29-2024 10:20-0400 Body weight 111.[address] Rhina Kulkarni MD Work Phone: [facility] 11-29-2024 10:20-0400 Diastolic blood pressure 79 mm[Hg] Dr. Rhina Kulkarni MD Work Phone: [facility] 11-29-2024 10:20-0400 Systolic blood pressure 122 mm[Hg] Dr. Rhina Kulkarni MD Work Phone: [facility] 11-27-2024 01:50-0400 Body temperature 97.9 [degF] Dr. Rhina Kulkarni MD Work Phone: [facility] 11-27-2024 01:50-0400 Diastolic blood pressure 74 mm[Hg] Dr. Rhina Kulkarni MD Work Phone: [facility] 11-27-2024 01:50-0400 Heart rate 99 /min Dr. Rhina Kulkarni MD Work Phone: [facility] 11-27-2024 01:50-0400 Respiratory rate 16 /min Dr. Rhina Kulkarni MD Work Phone: [facility] 11-27-2024 01:50-0400 SaO2% (BldA) [Mass fraction] 98 % Dr. Rhina Kulkarni MD Work Phone: [facility] 11-27-2024 01:50-0400 Systolic blood pressure 123 mm[Hg] Dr. Rhina Kulkarni MD Work Phone: [facility] 11-26-2024 22:09-0400 Body mass index (BMI) [Ratio] 48.9 kg/m2 Dr. Rhina Kulkarni MD Work Phone: [facility] 11-26-2024 22:09-0400 Body weight 113.[address] Rhina Kulkarni MD Work Phone: [facility] 10-05-2024 08:33-0400 Body temperature 97.7 [degF] Dr. Rhina Kulkarni MD Work Phone: [facility] 10-05-2024 08:33-0400 Diastolic blood pressure 70 mm[Hg] Dr. Rhina Kulkarni MD Work Phone: [facility] 10-05-2024 08:33-0400 Heart rate 81 /min Dr. Rhina Kulkarni MD Work Phone: [facility] 10-05-2024 08:33-0400 Respiratory rate 15 /min Dr. Rhina Kulkarni MD Work Phone: [facility] 10-05-2024 08:33-0400 SaO2% (BldA) [Mass fraction] 98 % Dr. Rhina Kulkarni MD Work Phone: [facility] 10-05-2024 08:33-0400 Systolic blood pressure 114 mm[Hg] Dr. Rhina Kulkarni MD Work Phone: [facility] 08-24-2024 11:13-0400 Body height 152.[address] Rhina Kulkarni MD Work Phone: [facility] 08-24-2024 11:13-0400 Body mass index (BMI) [Ratio] 46.9 kg/m2 Dr. Rhina Kulkarni MD Work Phone: [facility] 08-24-2024 11:13-0400 Body weight 109.[address] Rhina Kulkarni MD Work Phone: [facility] 08-24-2024 11:13-0400 Diastolic blood pressure 82 mm[Hg] Dr. Rhina Kulkarni MD Work Phone: [facility] 08-24-2024 11:13-0400 Systolic blood pressure 122 mm[Hg] Dr. Rhina Kulkarni MD Work Phone: [facility] 05-28-2023 13:39-0400 Body height 157.48 cm [employer] Work Phone: [facility] 05-28-2023 13:39-0400 Body mass index (BMI) [Ratio] 40.8 kg/m2 [employer] Work Phone: [facility] 05-28-2023 13:39-0400 Body temperature 98.1 [degF] [employer] Work Phone: [facility] 05-28-2023 13:39-0400 Body weight 101.15 kg [employer] Work Phone: [facility] 05-28-2023 13:39-0400 Diastolic blood pressure 80 mm[Hg] [employer] Work Phone: [facility] 05-28-2023 13:39-0400 Heart rate 62 /min [employer] Work Phone: [facility] 05-28-2023 13:39-0400 Respiratory rate 18 /min [employer] Work Phone: [facility] 05-28-2023 13:39-0400 SaO2% (BldA) [Mass fraction] 99 % [employer] Work Phone: [facility] 05-28-2023 13:39-0400 Systolic blood pressure 116 mm[Hg] [employer] Work Phone: [facility] 05-22-2023 12:44-0400 Body temperature 97.8 [degF] [employer] Costa [employer] Work Phone: [facility] 05-22-2023 12:44-0400 Diastolic blood pressure 72 mm[Hg] [employer] Costa [employer] Work Phone: [facility] 05-22-2023 12:44-0400 Heart rate 103 /min [employer] Costa [employer] Work Phone: [facility] 05-22-2023 12:44-0400 Respiratory rate 16 /min [employer] Work Phone: [facility] 05-22-2023 12:44-0400 SaO2% (BldA) [Mass fraction] 100 % [employer] Work Phone: [facility] 05-22-2023 12:44-0400 Systolic blood pressure 128 mm[Hg] [employer] Work Phone: [facility] 04-07-2023 11:34-0500 Body height 157.48 cm [employer] Costa [employer] Work Phone: [facility] 04-07-2023 11:34-0500 Body mass index (BMI) [Ratio] 41.8 kg/m2 [employer] Work Phone: [facility] 04-07-2023 11:34-0500 Body temperature 97.7 [degF] [employer] Costa [employer] Work Phone: [facility] 04-07-2023 11:34-0500 Body weight 103.64 kg [employer] Costa [employer] Work Phone: [facility] 04-07-2023 11:34-0500 Diastolic blood pressure 82 mm[Hg] [employer] Costa [employer] Work Phone: [facility] 04-07-2023 11:34-0500 Heart rate 89 /min [employer] Work Phone: [facility] 04-07-2023 11:34-0500 Respiratory rate 16 /min [employer] Work Phone: [facility] 04-07-2023 11:34-0500 SaO2% (BldA) [Mass fraction] 99 % [employer] Costa [employer] Work Phone: [facility] 04-07-2023 11:34-0500 Systolic blood pressure 122 mm[Hg] [employer] Costa [employer] Work Phone: [facility] 03-31-2023 15:04-0500 Body temperature 98.2 [degF] [employer] Costa [employer] Work Phone: [facility] 03-31-2023 15:04-0500 Diastolic blood pressure 79 mm[Hg] [employer] Costa [employer] Work Phone: [facility] 03-31-2023 15:04-0500 Heart rate 77 /min [employer] Work Phone: [facility] 03-31-2023 15:04-0500 Respiratory rate 16 /min [employer] Costa [employer] Work Phone: [facility] 03-31-2023 15:04-0500 SaO2% (BldA) [Mass fraction] 100 % [employer] Work Phone: [facility] 03-31-2023 15:04-0500 Systolic blood pressure 135 mm[Hg] [employer] Work Phone: [facility] 03-31-2023 13:18-0500 Body height 157.48 cm [employer] Work Phone: [facility] 03-31-2023 13:18-0500 Body mass index (BMI) [Ratio] 41.7 kg/m2 [employer] Work Phone: [facility] 03-31-2023 13:18-0500 Body weight 103.41 kg [employer] Costa [employer] Work Phone: [facility] 03-18-2023 11:02-0500 Body height 157.48 cm [employer] Costa [employer] Work Phone: [facility] 03-18-2023 11:02-0500 Body mass index (BMI) [Ratio] 42 kg/m2 [employer] Costa [employer] Work Phone: [facility] 03-18-2023 11:02-0500 Body temperature 97.7 [degF] [employer] Costa [employer] Work Phone: [facility] 03-18-2023 11:02-0500 Body weight 104.32 kg [employer] Costa [employer] Work Phone: [facility] 03-18-2023 11:02-0500 Diastolic blood pressure 80 mm[Hg] [employer] Costa [employer] Work Phone: [facility] 03-18-2023 11:02-0500 Heart rate 102 /min [employer] Costa [employer] Work Phone: [facility] 03-18-2023 11:02-0500 Respiratory rate 16 /min [employer] Costa [employer] Work Phone: [facility] 03-18-2023 11:02-0500 SaO2% (BldA) [Mass fraction] 98 % [employer] Costa [employer] Work Phone: [facility] 03-18-2023 11:02-0500 Systolic blood pressure 120 mm[Hg] [employer] Costa [employer] Work Phone: [facility] 01-13-2023 10:06-0500 Body height 157.48 cm [employer] Costa [employer] Work Phone: [facility] 01-13-2023 10:06-0500 Body mass index (BMI) [Ratio] 41.8 kg/m2 [employer] Costa [employer] Work Phone: [facility] 01-13-2023 10:06-0500 Body temperature 97.9 [degF] [employer] Costa [employer] Work Phone: [facility] 01-13-2023 10:06-0500 Body weight 103.87 kg [employer] Costa [employer] Work Phone: [facility] 01-13-2023 10:06-0500 Diastolic blood pressure 68 mm[Hg] [employer] Costa [employer] Work Phone: [facility] 01-13-2023 10:06-0500 Heart rate 80 /min [employer] Costa [employer] Work Phone: [facility] 01-13-2023 10:06-0500 Respiratory rate 18 /min [employer] Costa [employer] Work Phone: [facility] 01-13-2023 10:06-0500 SaO2% (BldA) [Mass fraction] 99 % [employer] Tonny Costa [employer] Work Phone: [facility] 01-13-2023 10:06-0500 Systolic blood pressure 112 mm[Hg] [employer] Costa [employer] Work Phone: [facility] 11-06-2022 13:46-0400 Body temperature 98.9 [degF] [employer] Ton[employer] Costa [employer] Work Phone: [facility] 11-06-2022 13:46-0400 Diastolic blood pressure 78 mm[Hg] [employer] Costa [employer] Work Phone: [facility] 11-06-2022 13:46-0400 Heart rate 95 /min [employer] Tonny Costa [employer] Work Phone: [facility] 11-06-2022 13:46-0400 Respiratory rate 14 /min [employer] Tonny Costa [employer] Work Phone: [facility] 11-06-2022 13:46-0400 SaO2% (BldA) [Mass fraction] 99 % [employer] Tonny Costa [employer] Work Phone: [facility] 11-06-2022 13:46-0400 Systolic blood pressure 110 mm[Hg] [employer] Tonny Costa [employer] Work Phone: [facility] 12-18-2021 07:59-0400 Body height 152.4 cm No Primary Care Physician [facility] Work Phone: 12-18-2021 07:59-0400 Body mass index (BMI) [Ratio] 49 kg/m2 No Primary Care Physician [facility] Work Phone: 12-18-2021 07:59-0400 Body temperature 98.2 [degF] No Primary Care Physician [facility] Work Phone: 12-18-2021 07:59-0400 Body weight 113.96 kg No Primary Care Physician [facility] Work Phone: 12-18-2021 07:59-0400 Diastolic blood pressure 78 mm[Hg] No Primary Care Physician [facility] Work Phone: 12-18-2021 07:59-0400 Heart rate 90 /min No Primary Care Physician [facility] Work Phone: 12-18-2021 07:59-0400 Respiratory rate 16 /min No Primary Care Physician [facility] Work Phone: 12-18-2021 07:59-0400 SaO2% (BldA) [Mass fraction] 97 % No Primary Care Physician [facility] Work Phone: 12-18-2021 07:59-0400 Systolic blood pressure 112 mm[Hg] No Primary Care Physician [facility] Work Phone: 12-11-2021 14:41-0400 Body mass index (BMI) [Ratio] 48.8 kg/m2 No Primary Care Physician [facility] Work Phone: 12-11-2021 14:41-0400 Body temperature 98.5 [degF] No Primary Care Physician [facility] Work Phone: 12-11-2021 14:41-0400 Body weight 113.39 kg No Primary Care Physician [facility] Work Phone: 12-11-2021 14:41-0400 Diastolic blood pressure 82 mm[Hg] No Primary Care Physician [facility] Work Phone: 12-11-2021 14:41-0400 Heart rate 88 /min No Primary Care Physician [facility] Work Phone: 12-11-2021 14:41-0400 Respiratory rate 14 /min No Primary Care Physician [facility] Work Phone: 12-11-2021 14:41-0400 SaO2% (BldA) [Mass fraction] 99 % No Primary Care Physician [facility] Work Phone: 12-11-2021 14:41-0400 Systolic blood pressure 114 mm[Hg] No Primary Care Physician [facility] Work Phone: 11-22-2021 10:24-0400 Body height 152.4 cm No Primary Care Physician [facility] Work Phone: 11-22-2021 10:24-0400 Body mass index (BMI) [Ratio] 47.7 kg/m2 No Primary Care Physician [facility] Work Phone: 11-22-2021 10:24-0400 Body temperature 97.1 [degF] No Primary Care Physician [facility] Work Phone: 11-22-2021 10:24-0400 Body weight 110.9 kg No Primary Care Physician [facility] Work Phone: 11-22-2021 10:24-0400 Diastolic blood pressure 72 mm[Hg] No Primary Care Physician [facility] Work Phone: 11-22-2021 10:24-0400 Heart rate 104 /min No Primary Care Physician [facility] Work Phone: 11-22-2021 10:24-0400 Respiratory rate 16 /min No Primary Care Physician [facility] Work Phone: 11-22-2021 10:24-0400 SaO2% (BldA) [Mass fraction] 99 % No Primary Care Physician [facility] Work Phone: 11-22-2021 10:24-0400 Systolic blood pressure 120 mm[Hg] No Primary Care Physician [facility] Work Phone: 11-19-2021 14:33-0400 Body mass index (BMI) [Ratio] 47.8 kg/m2 No Primary Care Physician [facility] Work Phone: 11-19-2021 14:33-0400 Body temperature 98.2 [degF] No Primary Care Physician [facility] Work Phone: 11-19-2021 14:33-0400 Body weight 111.13 kg No Primary Care Physician [facility] Work Phone: 11-19-2021 14:33-0400 Diastolic blood pressure 86 mm[Hg] No Primary Care Physician [facility] Work Phone: 11-19-2021 14:33-0400 Heart rate 94 /min No Primary Care Physician [facility] Work Phone: 11-19-2021 14:33-0400 Respiratory rate 14 /min No Primary Care Physician [facility] Work Phone: 11-19-2021 14:33-0400 SaO2% (BldA) [Mass fraction] 98 % No Primary Care Physician [facility] Work Phone: 11-19-2021 14:33-0400 Systolic blood pressure 122 mm[Hg] No Primary Care Physician [facility] Work Phone: 11-15-2021 19:55-0400 Heart rate 126 /min No Primary Care Physician [facility] Work Phone: 11-15-2021 19:55-0400 Respiratory rate 25 /min No Primary Care Physician [facility] Work Phone: 11-15-2021 19:44-0400 Body temperature 97 [degF] No Primary Care Physician [facility] Work Phone: 11-15-2021 19:44-0400 Diastolic blood pressure 93 mm[Hg] No Primary Care Physician [facility] Work Phone: 11-15-2021 19:44-0400 SaO2% (BldA) [Mass fraction] 98 % No Primary Care Physician [facility] Work Phone: 11-15-2021 19:44-0400 Systolic blood pressure 141 mm[Hg] No Primary Care Physician [facility] Work Phone: 11-15-2021 19:41-0400 Body mass index (BMI) [Ratio] 48.8 kg/m2 No Primary Care Physician [facility] Work Phone: 11-15-2021 19:41-0400 Body weight 113.39 kg No Primary Care Physician [facility] Work Phone: 07-08-2021 10:30-0400 Body temperature 98.3 [degF] No Primary Care Physician [facility] Work Phone: 07-08-2021 10:30-0400 Diastolic blood pressure 77 mm[Hg] No Primary Care Physician [facility] Work Phone: 07-08-2021 10:30-0400 Heart rate 90 /min No Primary Care Physician [facility] Work Phone: 07-08-2021 10:30-0400 Respiratory rate 16 /min No Primary Care Physician [facility] Work Phone: 07-08-2021 10:30-0400 SaO2% (BldA) [Mass fraction] 100 % No Primary Care Physician [facility] Work Phone: 07-08-2021 10:30-0400 Systolic blood pressure 131 mm[Hg] No Primary Care Physician [facility] Work Phone: 07-08-2021 07:45-0400 Body height 152.4 cm No Primary Care Physician [facility] Work Phone: 07-08-2021 07:45-0400 Body mass index (BMI) [Ratio] 49.7 kg/m2 No Primary Care Physician [facility] Work Phone: 07-08-2021 07:45-0400 Body weight 115.6 kg No Primary Care Physician [facility] Work Phone: 06-17-2021 14:59-0400 Body height 152.4 cm No Primary Care Physician [facility] Work Phone: 06-17-2021 14:59-0400 Body mass index (BMI) [Ratio] 50.3 kg/m2 No Primary Care Physician [facility] Work Phone: 06-17-2021 14:59-0400 Body temperature 98.1 [degF] No Primary Care Physician [facility] Work Phone: 06-17-2021 14:59-0400 Body weight 117.02 kg No Primary Care Physician [facility] Work Phone: 06-17-2021 14:59-0400 Diastolic blood pressure 78 mm[Hg] No Primary Care Physician [facility] Work Phone: 06-17-2021 14:59-0400 Heart rate 100 /min No Primary Care Physician [facility] Work Phone: 06-17-2021 14:59-0400 Respiratory rate 20 /min No Primary Care Physician [facility] Work Phone: 06-17-2021 14:59-0400 SaO2% (BldA) [Mass fraction] 99 % No Primary Care Physician [facility] Work Phone: 06-17-2021 14:59-0400 Systolic blood pressure 122 mm[Hg] No Primary Care Physician [facility] Work Phone: 05-28-2021 06:22-0400 Diastolic blood pressure 60 mm[Hg] No Primary Care Physician [facility] Work Phone: 05-28-2021 06:22-0400 Heart rate 96 /min No Primary Care Physician [facility] Work Phone: 05-28-2021 06:22-0400 Respiratory rate 18 /min No Primary Care Physician [facility] Work Phone: 05-28-2021 06:22-0400 SaO2% (BldA) [Mass fraction] 97 % No Primary Care Physician [facility] Work Phone: 05-28-2021 06:22-0400 Systolic blood pressure 138 mm[Hg] No Primary Care Physician [facility] Work Phone: 05-28-2021 05:13-0400 Body temperature 96.1 [degF] No Primary Care Physician [facility] Work Phone: 05-28-2021 05:11-0400 Body height 152.4 cm No Primary Care Physician [facility] Work Phone: 05-28-2021 05:11-0400 Body mass index (BMI) [Ratio] 52.4 kg/m2 No Primary Care Physician [facility] Work Phone: 05-28-2021 05:11-0400 Body weight 121.8 kg No Primary Care Physician [facility] Work Phone: 02-21-2021 10:43-0500 Body mass index (BMI) [Ratio] 48.4 kg/m2 No Primary Care Physician [facility] Work Phone: 02-21-2021 10:43-0500 Body weight 112.54 kg No Primary Care Physician [facility] Work Phone: 02-21-2021 10:43-0500 Diastolic blood pressure 86 mm[Hg] No Primary Care Physician [facility] Work Phone: 02-21-2021 10:43-0500 Systolic blood pressure 120 mm[Hg] No Primary Care Physician [facility] Work Phone: 02-06-2021 11:06-0500 Diastolic blood pressure 80 mm[Hg] No Primary Care Physician [facility] Work Phone: 02-06-2021 11:06-0500 Systolic blood pressure 100 mm[Hg] No Primary Care Physician [facility] Work Phone: 02-04-2021 14:15-0500 Body mass index (BMI) [Ratio] 48 kg/m2 No Primary Care Physician [facility] Work Phone: 02-04-2021 14:15-0500 Body weight 111.58 kg No Primary Care Physician [facility] Work Phone: 02-04-2021 14:15-0500 Diastolic blood pressure 90 mm[Hg] No Primary Care Physician [facility] Work Phone: 02-04-2021 14:15-0500 Systolic blood pressure 134 mm[Hg] No Primary Care Physician [facility] Work Phone: Encounters Encounter Date Encounter Type Care Provider Facility Start: 02-21-2025 ambulatory Rhina Kulkarni Facility :[facility] Start: 01-05-2025 End: 01-05-2025 ambulatory Rhina Kulkarni Facility:[facility] Start: 12-16-2024 End: 12-16-2024 ambulatory Josseline Celeste Facility:[facility] Start: 12-08-2024 End: 12-08-[address] Josseline Celeste DO -Medical Out Work Phone: Start: 12-08-2024 End: 12-08-[address] Rhina Kulkarni MD Work Phone: -Medical Out Start: 12-07-2024 End: 12-07-[address] Rhina Kulkarni MD Work Phone: -Laboratory Specimen Start: 12-07-2024 End: 12-07-[address] Josseline Celeste DO -Laboratory Specimen Work Phone: Start: 12-07-2024 End: 12-07-[address] Josseline Celeste DO -[facility] Work Phone: Start: 12-07-2024 End: 12-07-[address] Rhina Kulkarni MD Work Phone: -[facility] Start: 12-07-2024 End: 12-07-2024 ambulatory Rhina Kulkarni Facility:[facility] Start: 11-29-2024 End: 11-29-2024 Patient encounter procedure Yoon Wilkins CNM -[facility] Work Phone: Start: 11-29-2024 End: 11-29-[address] Rhina Kulkarni MD Work Phone: -[facility] Start: 11-26-2024 End: 11-27-2024 Emergency department patient visit Mariuszyanelis Mueller -Emergency Department Work Phone: Start: 11-25-2024 Non-patient / Non-visit Kimberly Werner RN -[facility] Work Phone: Start: 11-25-2024 ambulatory Rhina Kulkarni Facility :[facility] Start: 11-16-2024 End: 11-16-[address] Rhina Kulkarni MD Work Phone: -Ultrasound [facility] Start: 11-16-2024 End: 11-16-2024 Patient encounter procedure Yoon Wilkins CNM -Ultrasound [facility] Work Phone: Start: 11-16-2024 End: 11-16-2024 ambulatory Rhina Kulkarni Facility:[facility] Start: 11-02-2024 End: 11-02-[address] Rhina Kulkarni MD Work Phone: [facility] Start: 11-02-2024 End: 11-02-[address] Cheryle Meza MD -[facility] Start: 11-02-2024 End: 11-02-2024 ambulatory Rhina Kulkarni Facility:[facility] Start: 10-31-2024 End: 10-31-[address] Rhina Kulkarni MD Work Phone: -Lab [facility] Start: 10-31-2024 End: 10-31-[address] Cheryle Meza MD -[facility] Start: 10-31-2024 End: 10-31-2024 ambulatory Rhina Mcbrides Facility:[facility] Start: 10-05-2024 End: 10-05-2024 Patient encounter procedure Fabrizio Rubi [employer] Work Phone: Start: 10-05-2024 End: 10-05-[address] Rhina Kulkarni MD Work Phone: -[facility] Start: 08-30-2024 End: 08-30-[address] Rhina Kulkarni MD Work Phone: -Ultrasound [facility] Start: 08-30-2024 End: 08-30-[address] Cheryle Meza MD -Ultrasound [facility] Work Phone: Start: 08-30-2024 End: 08-30-2024 ambulatory Rhina Mcbrides Facility:[facility] Start: 08-24-2024 End: 08-24-[address] Cheryle Meza MD -[facility] Work Phone: Start: 08-24-2024 End: 08-24-[address] Rhina Kulkarni MD Work Phone: [facility] Work Phone: Start: 08-24-2024 End: 08-24-2024 ambulatory Rhina Mcbrides Facility:[facility] Start: 08-22-2024 End: 08-22-[address] Rhina Kulkarni MD Work Phone: [facility] Work Phone: Start: 08-22-2024 End: 08-22-[address] Josseline Celeste DO -Lab [facility] Start: 08-22-2024 End: 08-22-2024 ambulatory Rhina Mcbrides Facility:[facility] Start: 03-20-2024 End: 03-20-2024 ambulatory Rhina Cayla Facility:[facility] Start: 06-02-2023 End: 06-02-2023 ambulatory [employer] Tonny Costa [employer]IVER Work Phone: [facility] Work Phone: Start: 06-02-2023 End: 06-02-2023 Discharged Recurring [employer]-C Tonny Barrientosder NAVY DIVER Work Phone: [facility]-Physical Therapy Work Phone: Start: 05-28-2023 End: 05-28-2023 Patient encounter procedure [employer] Tonny Barrientosder NAVY DIVER Work Phone: [facility] Internal Medicine Work Phone: Start: 05-22-2023 End: 05-22-2023 Patient encounter procedure [employer]C Tonny Igor NAVY DIVER Work Phone: [facility] Work Phone: Start: 04-20-2023 Registered Recurring [employer]C Tonny Costa NAVY DIVER Work Phone: [facility]-Physical Therapy Work Phone: Start: 04-16-2023 End: 04-16-2023 ambulatory [employer]C Tonny Barrientosder NAVY DIVER Work Phone: [facility] Work Phone: Start: 04-16-2023 End: 04-16-2023 Patient encounter procedure [employer] Tonny Costa NAVY DIVER Work Phone: [facility] Work Phone: Start: 04-07-2023 End: 04-07-2023 Patient encounter procedure [employer] Tonny Barrientosder NAVY DIVER Work Phone: [facility] Radiology Start: 04-07-2023 End: 04-07-2023 Patient encounter procedure [employer] Tonny Costa NAV[employer]IVER Work Phone: [facility] Internal Medicine Work Phone: Start: 03-31-2023 End: 03-31-2023 ambulatory [employer]C Tonny Costa NAVY DIVER Work Phone: [facility] Work Phone: Start: 03-31-2023 End: 03-31-2023 Patient encounter procedure [employer]C Tonny Costa NAVY DIVER Work Phone: [facility]-Medical Out Work Phone: Start: 03-18-2023 End: 03-18-2023 ambulatory [employer]C Tonny Costa NAV[employer] DIVER Work Phone: [facility] Work Phone: Start: 03-18-2023 End: 03-18-2023 Patient encounter procedure [employer] Tonny Costa NAV[employer] DIVER Work Phone: [facility] Internal Medicine Work Phone: Start: 01-22-2023 End: 01-22-2023 ambulatory [employer]C Tonny Costa NAVY DIVER Work Phone: [facility] Work Phone: Start: 01-22-2023 End: 01-22-2023 Patient encounter procedure [employer] Tonny Costa NAVY DIVER Work Phone: [facility]-Laboratory, [facility] Start: 01-13-2023 End: 01-13-2023 Patient encounter procedure [employer] Tonny Costa NAV[employer] DIVER Work Phone: [facility] Internal Medicine Work Phone: Start: 11-06-2022 End: 11-06-2022 Patient encounter procedure [employer] Tonny Costa NAVY DIVER Work Phone: [facility] Work Phone: Start: 01-14-2022 End: 01-14-2022 ambulatory No Primary Care Physician [facility] Work Phone: Start: 01-14-2022 End: 01-14-2022 Patient encounter procedure No Primary Care Physician [facility]-Laboratory, [facility] Start: 12-18-2021 End: 12-18-2021 Patient encounter procedure No Primary Care Physician [facility]-Pulmonary Medicine [facility] Start: 12-11-2021 End: 12-11-2021 Patient encounter procedure No Primary Care Physician [facility] Internal Medicine Start: 11-22-2021 End: 11-22-2021 ambulatory No Primary Care Physician [facility] Work Phone: Start: 11-22-2021 End: 11-22-2021 Patient encounter procedure No Primary Care Physician [facility]-Radiology [place] Start: 11-22-2021 End: 11-22-2021 Patient encounter procedure No Primary Care Physician [facility] Internal Medicine Start: 11-19-2021 End: 11-19-2021 ambulatory No Primary Care Physician [facility] Work Phone: Start: 11-19-2021 End: 11-19-2021 Patient encounter procedure No Primary Care Physician [facility] Internal Medicine Start: 11-15-2021 End: 11-15-2021 Emergency department patient visit No Primary Care Physician [facility]-Emergency Department Start: 07-08-2021 End: 07-08-2021 Admission to same day surgery center No Primary Care Physician [facility]-Surgical Day Care Start: 07-04-2021 End: 07-04-2021 Patient encounter procedure No Primary Care Physician [facility]-Laboratory, Specimen Start: 06-17-2021 End: 06-17-2021 Patient encounter procedure No Primary Care Physician [facility] Internal Medicine Start: 06-13-2021 End: 06-13-2021 Patient encounter procedure No Primary Care Physician [facility]-Laboratory, Specimen Start: 05-28-2021 End: 05-28-2021 Emergency department patient visit No Primary Care Physician [facility]-Emergency Department Start: 02-21-2021 End: 02-21-2021 Patient encounter procedure No Primary Care Physician [facility] Start: 02-06-2021 End: 02-06-2021 Patient encounter procedure No Primary Care Physician [facility]Laboratory[facility] Start: 02-04-2021 End: 02-04-2021 Patient encounter procedure No Primary Care Physician [facility]-Laboratory, Specimen Start: 02-04-2021 End: 02-04-2021 Patient encounter procedure No Primary Care Physician [facility] Procedures Date Procedure Procedure Detail Performing Clinician Start: 12-07-[address] Jerome Kulkarni MD Work Phone: Start: 11-26-[address] Rhina Kulkarni MD Work Phone: Start: 11-26-2024 Transvaginal obstetr ic ultrasonography Dr. Rhina Kulkarni MD Work Phone: Start: 11-16-2024 [address] ic ultrasonography Dr[address] Rhina Kulkarni MD Work Phone: Start: 08-30-[address] Maximino Kulkarni [...] >20 - 80 High Positive: >80Performed at: [facility] [place] [id number] Director: Blue Araya MD, Phone: [phone] at: [facility] [place] [id number] Director: Charles Daigle PhD, Phone: [phone] Start: 08-22-2024 Total iron binding capacity measurement Dr. Rhina Kulkarni MD Work Phone: Start: 04-16-2023 CT of head without contrast [employer] Tonny Costa [employer]IVER Work Phone: Start: 04-07-2023 X-ray of cervical spine [employer] Tonny Costa NAV[employer] DIVER Work Phone: Start: 11-22-2021 Plain chest X-ray No Pr ary Care Physician Start: 07-08-2021 Myringotomy,Tubes (Bilateral) No [...] plan repeat tonight due to painful contractions. H/O: section History of delivery, currently Dr. Rhina Kulkarni MD Work Phone: Comment on above: x2, Desires rpt csec w/tubal H/O: section History of delivery, currently Dr. Josseline Celeste DO Plan of Treatment Date Care Activity Detail Author Start: 12-07-2024 Bacteria identified in Urine by Culture Urine Culture [facility] Start: 12-07-2024 Chlamydia deoxyribonucleic acid detection [facility] Start: 12-07-2024 [facility] Start: 11-29-2024 End: 11-29-2024 Patient encounter procedure Threatened miscarriage -[facility] Work Phone: Start: 11-27-2024 [facility] Start: 11-25-2024 Chlamydia deoxyribonucleic acid detection [facility] Start: 11-25-2024 Hepatitis C antibody measurement [facility] Start: 11-25-2024 Rubella IgG measurement [facility] Start: 11-25-2024 Serologic test for syphilis [facility] Start: 11-25-2024 [facility] Start: 08-24-2024 Beta 2 glycoprotein 1 Ab IgA and IgG and IgM panel - Serum [facility] Start: 08-24-2024 Cardiolipin IgG and IgM panel - Serum [facility] Start: 08-24-2024 CBC W Auto Differential panel - Blood [facility] Start: 08-24-2024 Lupus anticoagulant assay [facility] Start: 08-24-2024 Thyroid stimulating hormone measurement [facility] Start: 04-07-2023 Patient referral [facility] Work Phone: Start: 03-31-2023 Iv infusion therapy/prophylaxis /dx 1st to 1 hr THER/PROPH/DIAG IV INF INIT [facility] Start: 01-13-2023 Patient referral [facility] Work Phone: Start: 12-11-2021 Patient referral [facility] Work Phone: Start: 06-17-2021 Patient referral [facility] Work Phone: Beta 2 glycoprotein 1 IgA Ab [Presence] in Serum [facility] Beta 2 glycoprotein 1 IgG Ab [Presence] in Serum [facility] Beta 2 glycoprotein 1 IgM Ab [Presence] in Serum [facility] Cardiolipin IgG Ab [Units/volume] in Serum or Plasma [facility] Cardiolipin IgM Ab [Units/volume] in Serum or Plasma [facility] CBC W Auto Different ial panel - Blood [facility] Erythrocyte mean corpuscular volume determination [facility] Hematocrit [Volume Fraction] of Blood [facility] Hemoglobin [Mass/vol ume] in Blood [facility] Hemoglobin A1c/Hemoglobin.total in Blood [facility] Leukocytes [#/volume ] in Blood [facility] Lupus anticoagulant screening test [facility] Mean corpuscular hem oglobin concentration determination [facility] Mean corpuscular hem oglobin determination [facility] Measurement of respi ratory function [facility] Work Phone: Neisseria gonorrhoea e rRNA [Presence] in Unspecified specimen by DAVE with probe detection [facility] Neutrophil count [facility] [facility] Neut[facility] percent differential count [facility] Partial thromboplast in time ratio [facility] Patient Education [facility] Work Phone: Patient referral [facility] Work Phone: PCR test for Chlamyd ia trachomatis [facility] Platelets [#/volume] in Blood [facility] Red blood cell count [facility] Red cell distributio n width determination [facility] Streptococcus pyogen es Ag [Presence] in Throat by Rapid immunoassay [facility] Thrombin time [facility] Urine culture [facility] US [facility] Immunizations Immunization Date Immunization Notes Care Provider Fa cility 10-22-2020 tetanus toxoid, redu ronn diphtheria toxoid, and acellular pertussis vaccine, adsorbed No Primary Care Physician [facility] 10-22-2020 diphtheria, tetanus toxoids and acellular pertussis vaccine, unspecified formulation No Primary Care Physician [facility] Work Phone: 09-05-2017 measles, mumps and rubella virus vaccine No Primary Care Physician [facility] 07-31-2017 tetanus toxoid, redu ronn diphtheria toxoid, and acellular pertussis vaccine, adsorbed No Primary Care Physician [facility] Payers Date Payer Category Payer Self-pay [id number] 2024 Unknown [id number] Medicaid [id number] Unknown [id number] Unknown [id number] Unknown [id number] Unknown [id number] Unknown [id number] 2.16.8 40.1.956864.3.579.2.462 Unknown [id number] 2.16.8 40.1.366384.3.579.2.462 Unknown [id number] 2.16.8 40.1.781606.3.579.2.462 Unknown [id number] 2.16.8 40.1.051929.3.579.2.462 Unknown [id number] 2.16.8 40.1.394280.3.579.2.462 Unknown [id number] 2.16.8 40.1.384791.3.579.2.462 Unknown [id number] 2.16.8 40.1.972401.3.579.2.462 Unknown [id number] 2.16.8 40.1.749858.3.579.2.462 Unknown [id number] 2.16.8 40.1.160946.3.579.2.462 Unknown [id number] 2.16.8 40.1.925381.3.579.2.462 Unknown [id number] 2.16.8 40.1.020627.3.579.2.462 Unknown [id number] 2.16.8 40.1.570782.3.579.2.462 Unknown [id number] 2.16.8 40.1.893449.3.579.2.462 Unknown [id number] 2.16.8 40.1.295671.3.579.2.462 Unknown [id number] 2.16.8 40.1.771372.3.579.2.462 Unknown [id number] 2.16.8 40.1.444938.3.579.2.462 Unknown [id number] 2.16.8 40.1.775208.3.579.2.462 Unknown [id number] 2.16.8 40.1.178711.3.579.2.462 Social History Date Type Detail Facility [facility] Work Phone: Start: 05-28-2021 End: 05-28-2023 Tobacco smoking status NHIS Unknown if ever smoked [facility] Start: 09-03-[address] [facility] Start: 01-04-[address] [facility] Start: 1995 Sex Assigned At Female W [facility] Start: 08-24-2024 End: 11-26-2024 Tobacco smoking status NHIS Never smoked tobacco (finding) [facility] Patient currentl y [facility] Medical Equipment Procedure Code Equipment Code Equipment [...] TUBE,PAU MARIO IN VENT FDA Start: 07-08-2021 Mental Status Date Assessment Result Facility 12-08-2024 Cognitive function Awake [facility] Work Phone: 03-31-2023 Cognitive function Voice/Name [facility] Work Phone: 07-08-2021 Cognitive function Level Of Cons ciousness Appropriate;Drowsy [facility] Work Phone: 07-08-2021 Cognitive function Voice/Name [facility] Work Phone: Clinical Notes 06-03-2023 to 12-07-2024 Note Date & Type Note Facility 12-07-2024 Progress note [facility] 11-29-2024 Progress note [facility] 11-27-2024 Discharge summary [facility] 11-27-2024 Radiology Diagnostic study note [facility] Imaging Services [address] [place] [address] Transvaginal w/Preg US MR#: [id number] Acct: [id number] Name: JANETTE CAMPO AUGUST Rep #: [id number] : 1995 F 29 From: Evin Streeter MD PCP: Dr. Rhina Kulkarni MD Status: REG ER Study:Transvaginal w/Preg US Date of Exam: 11/26/24 Exam# [id number] Ordering Dr: Armida Mueller DO PROCEDURE: TRANSVAGINAL W/PREG US 11/26/2024 REASON FOR EXAM: ? MISCARRIAGE TECHNIQUE: Procedure Code: USTVAGP Modality: US Procedure: TRANSVAGINAL W/PREG US COMPARISON: 11/16/2024 FINDINGS The uterus measures 12.8 x 7.7 x 6.6 cm. A gestational sac is identified within the uterus. Within this gestational sac, a pole and yolk sac are identified. The crown rump length measures 13 mm and corresponds to a gestational age of 7 weeks 4 days. Real-time examination confirms cardiac activity with a heart rate of 152 bpm. A small amount of fluid is noted within the cervical canal. Both ovaries are not visualized. No adnexal masses are seen. There is no fluid in the cul-de-sac. US/Transvaginal w/Preg US IMPRESSION: Live intrauterine with a gestational age of 7 weeks 4 days. The estimated sonographic delivery date is: 07/11/2025. Complete anatomical assessment should be performed at 19-20 wks. Reading Location: [facility] CC: Dr. Rhina Kulkarni MD; Mariusz Mueller DO ~ Toy Consultant: Signed [facility] 11-17-2024 Radiology Diagnostic study note [facility] Imaging Services [address] [place] [address] Transvaginal w/Preg US MR#: [id number] Acct: [id number] Name: JANETTE CAMPO AUGUST Rep #: [id number] : 1995 F 29 From: Jaycob Almanzar MD PCP: Dr. Rhina Kulkarni MD Status: REG CLI Study:Transvaginal w/Preg US Date of Exam: 11/16/24 Exam# [id number] Ordering Dr: Yoon Wilkins CNM PROCEDURE: TRANSVAGINAL [...] and unremarkable. DIMENSIONS: Parameter Measurement / EGA Varnado Rump Length: 2 mm/6 weeks and 0 days Gestational Sac: 1.4 cm/6 weeks and 2 days Yolk Sac: 3 mm/ ESTIMATED GESTATIONAL AGE: By Ultrasound: 6 weeks and 1 day ESTIMATED DATE OF DELIVERY: By Ultrasound: July 11, 2025 US/Transvaginal w/Preg US IMPRESSION: Single live intrauterine gestation with a mean gestational age of 6 weeks and 1 day. Reading Location: [id number] CC: WILLIAM Wilkins; Dr. Rhina Kulkarni MD ~ Toy Consultant: Signed [facility] 08-30-2024 Radiology Diagnostic study note [facility] Imaging Services [address] [place] [address] Pelvic w/ Transvaginal MR#: [id number] Acct: [id number] Name: JANETTE CAMPO AUGUST Rep #: [id number] : 1995 F 29 From: Lali Delacruz MD PCP: Dr. Rhina Kulkarni MD Status: REG CLI Study:Pelvic w/ Transvaginal Date of Exam: 08/30/24 Exam# [id number] Ordering Dr: Cheryle Melgoza MD PROCEDURE: PELVIC [...] TRANSVAGINAL PELVIC ULTRASOUND WITH DOPPLER. Reading Location: [id number] CC: Dr. Rhina Kulkarni MD; Dr. Cheryle Meza MD ~ Toy Consultant: Signed [facility] 08-24-2024 Evaluation note Diagnosis Onset Date Resolution Abnormal uterine bleeding acute August 24, 2024 11:09am Recurrent loss acute August 24, 2024 11:09am [facility] Work Phone: 1(773) 743-797806-18-2025 Evaluation note* Diagnosis Onset Date Resolution Status Admit Date Abnormal uterine bleeding acute August 24, 2024 11:09am Recurrent loss acute August 24, 2024 11:09am Sore throat resolved October 05 8:24am [facility] Work Phone: 1(441) 770-867406-18-2025 Evaluation note* Diagnosis Onset Date Resolution Status Admit Date Abnormal uterine bleeding inactive August 24, 2024 11:09am Recurrent loss inactive August 24, 2024 11:09am Sore throat resolved October 05 8:24am Threatened miscarriage inactive Se ptember 2024 10:17am [facility] Work Phone: 1(842) 513-987206-18-2025 Evaluation note* Diagnosis Onset Date Resolution Status Admit Date Abnormal uterine bleeding inactive August 24, 2024 11:09am Recurrent loss inactive August 24, 2024 11:09am Sore throat resolved October 05 8:24am Threatened miscarriage inactive Se ptember 2024 10:17am History of delivery , currently acute December 07, 2024 10:53am History of miscarriage, currently acute December 07, 2024 10:53am History of induced hypertension acute December 07 10:53am Hyperemesis gravidarum acute Oc tob2024 10:53am Obesity affecting acute December 07, 2024 10:53am acute December 07, 2 025 10:53am Supervision of high-risk acute December 07 10:53am [facility] Work Phone: 1(606) 730-970006-01-2025 Discharge summary Author Mariusz Mueller [facility] Note Date/Time November 27, 2024 1:51am [facility] Medical Records Department [address] [place] [address] Emergency Department Summary 11/27/24 MR#: [id number] Acct: [id number] Name: JANETTE CAMPO AUGUST Rep #:[id number] : 1995 29 From: Mariusz Mueller DO PCP: Dr. Rhina Kulkarni MD Status:DEP ER Location: ED HPI HPI - Female History of Present Illness Chief Complaint: Vag Bld, Preg Informant: patient Narrative Narrative: Patient is a G4, P2 with 1 spontaneous miscarriage who states she is roughly 7 weeks . She reports she is already had an ultrasound confirming an IUP. She states her has been uneventful but that roughly 30 minutes prior to arrival she developed lower abdominal cramping and then began passing blood with small clots. She denies any history of bleeding disorder or blood thinner use. She states that because of her previous miscarriage she was concerned thatthat was happening again and therefore comes to the hospital for evaluation. [facility] Medical History (Updated 11/27/24 @ 01:[address] Mariusz Mueller, DO) Recurrent loss Anxiety GERD (gastroesophageal reflux disease) Abnormal uterine bleeding ASCUS favor benign Irritable bowel syndrome with diarrhea Low iron GI bleeding Oral herpes Medical History no medical history Home Medications ?Medication ?Instructions ?Recorded ?Last Taken ?Type cetirizine 10 mg capsule (Zyrtec) 10 mg PO DAILY PRN a llergy symptoms 06/16/22 Unknown History albuterol sulfate 90 mcg/actuation 1 - 2 puff inhalati on Q6H PRN 01/13/23 Unknown Rx aerosol inhaler (ProAir HFA) shortness of breath or wh eezing #8.5 grams azelastine 0.05 % eye drops 1 drp ophthalmic (eye) BID #6 mL 08/04/23 Unknown Rx docosahexaenoic acid 200 mg mg PO 11/25/24 Unknown His tory capsule ( DHA) Allergy/AdvReac Type Severity Reaction Status Date / Time No Known Allergies Allergy Verified 11/25/24 10:55 Family History Father Epilepsy Migraines Mother Arthritis Anxiety Sister Anxiety Surgical History Encounter for removal of skin lesion History of placement of ear tubes H/O myringotomy History of tonsillectomy History of esophagogastroduodenoscopy (EGD) H/O colonoscopy H/O toe surgery History of cholecystectomy delivery delivered Surgical History no surgical history Social History adopted: No household members: spouse and children housing: house number of children: 2 current occupational status: employed current occupation: [email or web address] current occupational exposures/hazards: Yes (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 ) pets and animals: Yes (Not managing litterbox) pets and animals: cat(s), dog(s)and farm animals history of recent travel: No sexually active: Yes Smoking Status: Never smoker second hand exposure: No alcohol intake: never substance use type: does not use well-balanced diet: daily or most days caffeine: Yes Type: coffee Number of servings: 1 eating out: 1-3 times/week during the past year weight has: decreased > 10 lbs what type of physical activity do you participate in: walking frequency: 3-4 times per week duration: 15-30 minutes/day christoph/restorationism: Oriental Orthodox seatbelt use: always do you feel safe at home: Yes additional social history: : [employer] ROS ROS ED Constitutional Constitutional ED: Denies chills or fever(s) ENT ENT ED: Denies sore throat Cardiovascular Cardiovascular: Denies chest pain Respiratory/Chest Respiratory/Chest: Denies cough or dyspnea Gastrointestinal Gastrointestinal: Reports abdominal pain; Denies diarrhea, nausea or vomiting Genitourinary Genitourinary ED: Reports other Details: Positive vaginal bleeding ; Denies dysuria Musculoskeletal Musculoskeletal: Denies myalgias Integumentary Denies rash Neurologic Neurologic: Denies headache(s) Psychiatric Psychiatric: Reports anxiety Hematologic/Lymphatic Hematologic/Lymphatic: Denies easy bleeding or easy bruising EXAM Physical Exam Const Vital Signs: 11/26/24 22:09 11/27/24 00:08 11/27/24 01:50 Temperature 97.1 F L 97.9 F Temperature Source Temporal Pulse Rate 108 H 99 99 Respiratory Rate 22 H 16 16 Blood Pressure 157/109 H 123/74 H Blood Pressure Mean 125 90 Pulse Ox 100 98 98 Oxygen Delivery Method Room Air Room Air Positive well nourished and well developed General Appearance ED: well developed; Negative for pallor HEENT HEENT Narrative: Normocephalic atraumatic Eyes PERRL and EOMs intact bilaterally General Eye ED: Negative for pale conjunctiva or scleral icterus Neck supple Resp normal respiratory effort and clear to auscultation bilaterally Cardio regular rate and regular rhythm GI normal to inspection, nondistended, normoactive bowel sounds, soft to palpation,non-tender, non-distended and no masses GI Narrative: No organomegaly noted Auscultation: normoactive bowel sounds Palpation: soft Back/Spine no CVA tenderness Extremity normal to inspection and full ROM Neuro oriented x3, CN's II-XII intact bilaterally and no sensory deficits noted Sensorium / Orientation: alert Psych Mood & Affect: anxious and tearful Skin no rashes or lesions noted and no wounds Skin Narrative: Capillary refill is less than 3 seconds General Skin Exam: Negative for jaundice or pallor MDM MDM MDM Narrative Medical decision making narrative: Patient arrived to the ER hypertensive and tachycardic but was noticeably anxious and crying. She reported a previous miscarriage and reported vaginal bleeding with clot production as well as abdominal cramping just 30 minutes to an hour ago. Based on this past history and her symptoms this evening there is high concern for a repeat miscarriage. Secondary to this basic labs were obtained as well as a transvaginal ultrasound. Previous chart review reveals that her blood type is A positive and therefore there is no need for RhoGAM. Blood work revealed a hCG value of approximately 54,000. Otherwise there is no signs of acute kidney injury thrombocytopenia or severe anemia. The ultrasound noted a IUP with heartbeat of 150 bpm therefore this ultrasound indicates her symptoms are associated with a threatened miscarriage but not a spontaneous miscarriage. Therefore at this time patient's vitals have drastically improved after her anxiety has been alleviated and her abdomen is soft and nonsurgical. Therefore there is no need for emergent COPIER OPERATOR consultation and the patient can follow-up as an outpatient. History & Record Review Discussion w/independent historian: Patient Lab Data Attestation: I reviewed the patient's lab results. Labs: Laboratory Results - last 24 hr 11/26/24 22:46 WBC 9.9 RBC 4.46 Hgb 10.2 L Hct 32.1 L MCV 72.0 L MCH 22.9 L MCHC 31.8 L RDW Std Deviation 47.5 H RDW Coeff of Shania 18.6 H Plt Count 249 MPV 10.1 Immature Gran % (Auto) 0.300 Neut % (Auto) 58.7 Lymph % (Auto) 31.9 Mellette % (Auto) 7.7 Eos % (Auto) 1.1 Baso % (Auto) 0.3 Absolute Neuts (auto) 5.8 Absolute Lymphs (auto) 3.15 Nucleated RBC % 0 Sodium 135 Potassium 3.9 Chloride 102 Carbon Dioxide 21.8 Anion Gap 11 BUN 13 Creatinine 0.88 Estim Creat Clear Calc 107.33 Est GFR (MDRD) Non-Af 91 BUN/Creatinine Ratio 15.1 Glucose 92 Calcium 9.4 HCG, Quant 02360 H Radiography Diagnostic Testing: Clinical Impression(s) from Imaging Studies Obstetrics Ultrasound 11/26/24 22:26 IMPRESSION: Live intrauterine with a gestational age of 7 weeks 4 days. The estimated sonographic delivery date is: 07/11/2025. Complete anatomical assessment should be performed at 19-20 wks. Reading Location: [facility] Discharge Plan Triage Chief Complaint: Vag Bld, Preg ED Provider: Mariusz Mueller Dx/Rx/DC Orders Clinical Impression: Threatened miscarriage Instructions: Miscarriage Threatened Prescriptions: No Action Zyrtec 10 mg capsule 10 mg PO DAILY PRN (Reason: allergy symptoms) albuterol sulfate [ProAir HFA] 90 mcg/actuation HFA aerosol inhaler 1 - 2 puff inhalation Q6H PRN (Reason: shortness of breath or wheezing) Qty: 8.5 1RF azelastine 0.05 % drops 1 drp ophthalmic (eye) BID Qty: 6 0RF DHA 200 mg capsule PO Primary Care Provider: Rhina Kulkarni Referrals: Rhina Kulkarni MD [Primary Care Provider, Internal Medicine] Cheryle Meza MD [Med Staff - Active Staff, Obstetrics-Gynecology (OBGYN)] Activity Restrictions/Additional Instructions: Please follow-up with your COPIER OPERATOR for repeat evaluation but the ultrasound showed the baby to still be within the uterus with normal heartbeat and your hCGvalue was 53,693. Return to the ER should you have any further concerns or worsening of symptoms Print Language: Irish Disposition Disposition: Home, Self Care Discharge Date/Time: 11/27/24 01:51 What to do if you have Problems For any increased pain, shortness of breath, bleeding, nausea or vomiting, chestpain, or any unexpected problems, contact your Primary Care Provider. Call [facility] ([phone]) or report to the closest Emergency Room. Call 911 if necessary. 11/27/24 0158 <Electronically signed by Mariusz Mueller DO> Cosigner Signature (if applicable): CC: Dr. Rhina Kulkarni MD ~ Signed [facility] Work Phone: 1(843) 175-192503-27-2024 Discharge summary Author Sriram Esqueda [facility] June 03, 2023 11:49am Note Date/Time June 03, 2023 11: 49am [facility] Physical Therapy [facility] [facility] [place] [address] / REHABILITATION SERVICES DISCHARGE SUMMARY MR#: [id number] Acct: [id number] Name: JANETTE CAMPO Rep #: [id number] : 1995 28 From: Sriram Esqueda DPT, OCS, CSCS Referring Dr.: Dr. Rhina Kulkarni MD Status: REG RCR Insurance: [employer] FOR ME [facility] Discharge Summary D/C summary: It has been [...] please feel free to call me at [phone]. Thank you for the referral of thispatient. Sincerely, Sriram Esqueda, LIZ, OCS, CSCS Balance/Gait/Functional tests Balance/Special Test Scores Functional Gait Assessment Score: 29 % Disability: 3.3400 Oswestry Neck Score: 2 Improvement % Improvement: 98 <Electronically signed by Sriram SAVAGET, OCS, CSCS> 06/03/23 1149 CC: Dr. Rhina Kulkarni MD ~ EBG Signed [facility] Work Phone: evaluation note* Diagnosis Onset Date Resolution Status Infection of obstetric surgi florin wound, superficial incisional site acute Dizziness acute Headache acute exam acute [facility] Work Phone: Evaluation note* Diagnosis Onset Date Resolution Status exam acute Asthma acute Depression acute GI bleeding acute Iron deficiency anemia acute Obesity acute Anemia resolved [facility] Work Phone: Evaluation note* Diagnosis Onset Date Resolution Status Asthma acute Depression acute GI bleeding acute Iron deficiency anemia acute Obesity acute Anemia resolved [facility] Work Phone: evaluation note* Diagnosis Onset Date Resolution Status Irritable bowel syndrome with diarrhea chronic Acute asthma exacerbation no neactive Iron deficiency anemia acute URI (upper respiratory infection) noneactive Vitamin deficiency noneactiv e Acute asthma exacerbation no neactive [facility] Work Phone: Evaluation note* Diagnosis Onset Date Resolution Status Irritable bowel syndrome with diarrhea chronic Acute asthma exacerbation no neactive Iron deficiency anemia acute URI (upper respiratory infection) noneactive Vitamin deficiency noneactiv e Acute asthma exacerbation no neactive Asthma acute Post-viral cough syndrome no neactive Asthma acute GERD (gastroesophageal reflux disease) acute Obesity acute [facility] Work Phone: Evaluation note* Diagnosis Onset Date Resolution Status Acute sinusitis resolved Iron deficiency anemia acute Immunization declined noneac tive Establishing care with new doctor, encounter for noneactive Mild intermittent asthma in adult without complication noneactive Moderate anxiety noneactive Morbid obesity with BMI of 40.0-44.9, adult noneactive Elevated cholesterol with elevated triglycerides noneactive Vitamin D deficiency noneact daphne [facility] Work Phone: Evaluation note* Diagnosis Onset Date [...] obesity with BMI of 40.0-44.9, adult noneactive [facility] Work Phone: Evaluation note* Diagnosis Onset Date [...] noneactive Head injury noneactive Neck pain noneactive [facility] Work Phone: Evaluation note* Diagnosis Onset Date Resolution Status Iron deficiency anemia acute Mild intermittent asthma in adult without complication noneactive Moderate anxiety noneactive Morbid obesity with BMI of 40.0-44.9, adult noneactive Concussion noneactive Head injury noneactive Neck pain noneactive Influenza due to influenza virus, type B acute Sinobronchitis chronic [facility] Work Phone: Evaluation noteNo assessment information available [facility] Work Phone: Hospital Discharge instructionsAdditional Instructions Please follow-up with your COPIER OPERATOR for repeat evaluation but the ultrasound showed the baby to still be within the uterus with normal heartbeat and your hCG value was 53,693. Return to the ER should you have any further concerns [facility] of [facility] Progress note Author Yoon Wilkins [facility] Note Date/Time November 29, 2024 10:45am [facility] H ealt System [facility] [address] [place] [address], [address] [place] [address] OFFICE VISIT Date of Service: 11/29/24 MR#: [id number] Acct: [id number] Name: JANETTE CAMPO AUGUST Rep #: [id number] : 1995 Provider: WILLIAM Wilkins Age/Sex: 29/F Location: [facility] Status: Signed Intake Vital Signs 11/26/24 22:09 11/29/24 10:20 Height 5 ft 5 ft Weight: 245 lb 5 oz BMI 47.9 BP 122/79 H Intake Visit Reasons: OB ER f/u per SM (NOB 12/07)* Chief Complaint: ER FU Invoice Classification Clerk Required: No Is patient in pain?: No Allergies No Known Allergies Allergy (Verified 11/29/24 10:18) Medications ?Medication ?Instructions ?Recorded ?Confirmed ?Type cetirizine 10 mg capsule (Zyrtec) 10 mg PO DAILY PRN a llergy symptoms 06/16/22 11/29/24 History albuterol sulfate 90 mcg/actuation 1 - 2 puff inhalati on Q6H PRN 01/13/23 11/29/24 Rx aerosol inhaler (ProAir HFA) shortness of breath or wh eezing #8.5 grams azelastine 0.05 % eye drops 1 drp ophthalmic (eye) BID #6 mL 08/04/23 11/29/24 Rx docosahexaenoic acid 200 mg mg PO 11/25/24 11/29/24 Hi story capsule ( DHA) Is last menstrual period known: No Post menopausal: No Patient : Yes : No PFSH Medical History Recurrent loss Anxiety GERD (gastroesophageal reflux disease) Abnormal uterine bleeding ASCUS favor benign Irritable bowel syndrome with diarrhea Low iron GI bleeding Oral herpes Surgical History Encounter for removal of skin lesion History of placement of ear tubes H/O myringotomy History of tonsillectomy History of esophagogastroduodenoscopy (EGD) H/O colonoscopy H/O toe surgery History of cholecystectomy delivery delivered Family History Father Epilepsy Migraines Mother Arthritis Anxiety Sister Anxiety Social History adopted: No household members: spouse and children housing: house number of children: 2 current occupational status: employed current occupation: [employer] and [email or web address] current occupational exposures/hazards: Yes (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 ) pets and animals: Yes (Not managing litterbox) pets and animals: cat(s), dog(s)and farm animals history of recent travel: No sexually active: Yes Smoking Status: Never smoker second hand exposure: No alcohol intake: never substance use type: does not use well-balanced diet: daily or most days caffeine: Yes Type: coffee Number of servings: 1 eating out: 1-3 times/week during the past year weight has: decreased > 10 lbs what type of physical activity do you participate in: walking frequency: 3-4 times per week duration: 15-30 minutes/day christoph/restorationism: Oriental Orthodox seatbelt use: always do you feel safe at home: Yes additional social history: : [employer] HPI OB ER f/u per (NOB 12/07)* Details: JANETTE CAMPO is a 29 year old who presents for ER follow up for threatenedAB. US showed IUP with heart rate, measuring consistent with LMP. bleeding has stopped and is not cramping. US in office shows CRL of 1.59 cons with 8.0 week gestation. FHT is 163. Has NOB visit next week with . History 4 Elective abortions Hx Para 2 Spontaneous abortions 1 Hx # Term Pregnancies 2 Ectopic pregnancies Hx # Pregnancies Multiple births # of living children 2 Past Pregnancies Del. Date Name GA/Weeks Outcome Route Bth Weight Gen Labor Lgth Anesthesia Del Locatn Provider FOB 09/04/17 Zahra 39 live - full term 7lbs 12oz Female epidural [facility] DM Jonah 01/09/21 Ulices 38 live - full term 7lbs 11oz Male spinal [facility] Dr. Celeste Jonah 08/07/24 4 spontaneous Jonah Delivery Date: 09/04/17 Last Updated by: Kimberly Werner RN IoL d/t GHTN; AOD at 5cm; Category 2 FHR recurrent late decelerations, Meconium fluid, Emergency csec - baby reces Delivery Date: 01/09/21 Last Updated by: Kimberly Werner RN Emergency csec ROS Const Constitutional: Reports system reviewed and no additional complaints, except as documented Cardio Card: Reports system reviewed and no additional complaints, except as documented Resp Resp: Reports system reviewed and no additional complaints, except as documented GI GI: Reports system reviewed and no additional complaints, except as documented : Reports system reviewed and no additional complaints, except as documented; Denies difficulty voiding, dysuria or urinary frequency Skin Skin/Breast: Reports system reviewed and no additional complaints, except as documented Neuro Neuro: Reports system reviewed and no additional complaints, except as documented Psych Psych: Reports system reviewed and no additional complaints, except as documented Exam Const General: cooperative, healthy appearing, comfortable and no acute distress Resp Effort & Inspection: normal respiratory effort, able to speak in complete sentences and symmetric chest movement GI Inspection: normal to inspection Palpation: soft External Female Exam: normal external appearance and normal appearance of the urethra Urethra: normal appearance of the urethra Speculum Exam - Vagina: normal appearance of the vagina and normal vaginal discharge Neuro General: patient alert, patient awake and patient oriented x3 Cognition: normal cognition Speech: speech normal Gait: normal gait Psych Appearance: grossly normal and well kempt Mental Status: mental status grossly normal Affect: normal affect Speech and Movement: speech and movement normal Attitude: cooperative Thought Process: normal Thought Content: normal Judgment: judgment good Coding Level of Care Code Off vis,est,level 3 Diagnoses Threatened miscarriage O20.0 Assessment and Plan Assessment and Plan (1) Threatened miscarriage: Status: Acute Plan: TVUS shows IUP with FHT of 163 RTO next week for NOB visit 11/29/24 1045 <Electronically signed by Yoon trinidad CNM> Date _ Yoon Wilkins CNM Cosigner Signature: Date (if applicable) CC: ~ [facility] Work Phone: Progress note Author Josseline Bucio [facility] Note Date/Time December 07, 2024 11 :33am [facility] [address], [address] [place] [address] OFFICE VISIT Date of Service: 12/07/24 MR#: [id number] Acct: [id number] Name: JANETTE CAMPO AUGUST Rep #: [id number] : 1995 Provider: Dr. 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 Required: No Is patient in pain?: No Allergies No Known Allergies Allergy (Verified 12/07/24 10:59) Medications ?Medication ?Instructions ?Recorded ?Confirmed ?Type cetirizine 10 mg capsule (Zyrtec) 10 mg PO DAILY PRN a llergy symptoms 06/16/22 12/07/24 History albuterol sulfate 90 mcg/actuation 1 - 2 puff inhalati on Q6H PRN 01/13/23 12/07/24 Rx aerosol inhaler (ProAir HFA) shortness of breath or wh eezing #8.5 grams azelastine 0.05 % eye drops 1 drp ophthalmic (eye) BID #6 mL 08/04/23 12/07/24 Rx docosahexaenoic acid 200 mg mg PO 11/25/24 12/07/24 Hi story capsule ( DHA) prochlorperazine maleate 10 mg 10 mg PO TID #30 tabs 1 12/07/24 Rx tablet (Compazine) Last Menstrual Period: 07/17/24 Zika: Zika virus screening: Negative : No Have you fallen in the past year?: No PFSH PFSH Medical History Recurrent loss Anxiety GERD (gastroesophageal reflux disease) Abnormal uterine bleeding ASCUS favor benign Irritable bowel syndrome with diarrhea Low iron GI bleeding Oral herpes Surgical History Encounter for removal of skin lesion History of placement of ear tubes H/O myringotomy History of tonsillectomy History of esophagogastroduodenoscopy (EGD) H/O colonoscopy H/O toe surgery History of cholecystectomy delivery delivered Family History Father Epilepsy Migraines Mother Arthritis Anxiety Sister Anxiety Social History adopted: No household members: spouse and children housing: house number of children: 2 current occupational status: employed current occupation: [employer] and [email or web address] current occupational exposures/hazards: Yes (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 ) pets and animals: Yes (Not managing litterbox) pets and animals: cat(s), dog(s)and farm animals history of recent travel: No sexually active: Yes Smoking Status: Never smoker second hand exposure: No alcohol intake: never substance use type: does not use well-balanced diet: daily or most days caffeine: Yes Type: coffee Number of servings: 1 eating out: 1-3 times/week during the past year weight has: decreased > 10 lbs what type of physical activity do you participate in: walking frequency: 3-4 times per week duration: 15-30 minutes/day christoph/restorationism: Oriental Orthodox seatbelt use: always do you feel safe at home: Yes additional social history: : [employer] History 4 Elective abortions Hx Para 2 Spontaneous abortions 1 Hx # Term Pregnancies 2 Ectopic pregnancies Hx # Pregnancies Multiple births # of living children 2 Past Pregnancies Del. Date Name GA/Weeks Outcome Route Bth Weight Gen Labor Lgth Anesthesia Del Locatn Provider FOB 09/04/17 Zahra 39 live - full term 7lbs 12oz Female epidural [facility] DM Jonah 01/09/21 Ulices 38 live - full term 7lbs 11oz Male spinal [facility] Dr. Morales 08/07/24 4 spontaneous Jonah Delivery Date: 09/04/17 Last Updated by: Kimberly Werner RN IoL d/t GHTN; AOD at 5cm; Category 2 FHR recurrent late decelerations, Meconium fluid, Emergency csec - baby reces Delivery Date: 01/09/21 Last Updated by: Kimberly Werner RN Emergency csec HPI *EST* NOB: US #1 11/17 -> 6.1wk, JIM 07/11 Details: JANETTE CAMPO is a 29 year old who presents for New OB visit. OB Visit JIM Calculator Estimated Delivery Date Method Current WG Current Estimate 07/11/25 Ultrasound #1 9w 1d Estimated Due Date: 07/11/25 Expected Delivery Route/Plan rpt cs with JV if possible Specific Issue/Plans Covid status: [] Flu vaccine: [] Tdap vaccine: [] Rhogam: [] LARC form signed: [] Problem list reviewed and updated with the most current plan of care details and appropriate orders placed. Relevant counseling for the gestational age provided. Continue routine care and follow up unless otherwise noted in visit notes/problem list details Initial Weight: Not Recorded Date -?-?-?-?-?-?-?-?-?-?-?-?- EGA Weight BP Urine Prot -?-?-?-?-?-?-?-?-?-?-?-?- Glucose FHR FuHt Pres Dilation -?-?-?-?-?-?-?-?-?-?-?-?- Effaced St Visit Note 12/07/24 -?-?-?-?-?-?-?-?-?-?-?-?- 9w 1d 245 lb 8 oz 123/82 -?-?-?-?-?-?-?-?-?-?-?-?- 180 -?-?-?--?-?-?-?-?-?-?-?-?- JV- CRL consiste nt with prior ultrasounds. Desires NIPT and repeat section Menstrual History Last Menstrual Period: 07/17/24 On hormonal BC at conception: No Antepartum Record Genetic Screening: Congenital Heart Defect: Other, Neural Tube Defect: Other, Hemoglobinopathy Or Carrier: Other, Cystic Fibrosis: Other, Chromosome Abnormality: Other, Erik-Sachs: Other, Hemophilia: Other, Intellectual Disability/Autism: Other, Recurrent Loss/Stillbirth: Other, Other Structural Defect: Other, Other Genetic Disease: Other and Maternal Metabolic Disorder: Other Infection History: Live with someone with TB or Exposed to TB: No, Patient or Partner has history of Genital Herpes: No, Rash or Viral illness since last mentrual period: No, Prior GBS-Infected child: No, History of STD: No, HIV Infection: No, History of Hepatitis: No, Recent travel outside of [place]: No, Concern for hepatitis exposure: No and Varicella immune: Yes Medical History Medical History: Negative: Diabetes, Hypertension, Heart disease, Auto-immune disorder, Kidney disease/UTI, Neurologic/epilepsy, Psychiatric, Depression/ depression, Hepatitis/liver disease, Varicosities/phlebitis, Thyroid dysfunction, Trauma/domestic violence, History of blood transfusions, D (Rh) Sensitized, Pulmonary (e.g.,TB,Asthma), Seasonal allergies, Drug/latex allergies/reactions, Breast, Side Boss surgery, Operations/hospitalizations, Anesthetic complications, History of abnormal pap, Uterine anomaly/waylon, Infertility, Anti-retroviral treatment, Relevant family history and Other ACOG First Trimester First Trimester: Desire for , Alcohol, Tobacco Cessation, Illicit/Recreational Drug/Substance Use, Intimate Partner Violence, Barriers to care, Unstable Housing, Communication Barriers, Environmental/Work Hazards, Anticipated Course of Care, Toxoplasmosis Precations, Use of Any medications, Sexual activity, Exercise, Dental Care, Sauna/Hot tub use, Seat Belt use, Childbirth classes/Hospital facilities, Travel, Indications for Ultrasound and Screening for Aneuploidy; Discussed ROS ZigaV[employer] system reviewed and no additional complaints, except as documented, Reports fatigue and Denies fever(s) Eyes Reports system reviewed and no additional complaints, except as documented ENT Reports system reviewed and no additional complaints, except as documented Card Denies chest pain and Denies dyspnea Resp Reports system reviewed and no additional complaints, except as documented, Denies cough and Denies dyspnea GI Denies abdominal pain and Reports nausea Reports system reviewed and no additional complaints, except as documented Musc Reports system reviewed and no additional complaints, except as documented Skin/Breast Reports system reviewed and no additional complaints, except as documented Neuro Yes system reviewed and no additional complaints, except as documented Psych Reports system reviewed and no additional complaints, except as documented Endo Reports system reviewed and no additional complaints, except as documented and Reports fatigue Exam Const General: healthy appearing, comfortable and no acute distress Orientation: alert [facility] Head: normal to inspection, normocephalic and atraumatic Ears: hearing grossly normal bilaterally and external ears normal Nose: external nose normal and nares normal Mouth: oral mucosae normal Teeth and gingiva: dentition normal Eyes General: appearance normal, both eyes and all related structures Neck Neck: normal visual inspection, no lymphadenopathy and supple Thyroid: thyroid normal Resp Effort & Inspection: normal respiratory effort GI Inspection: normal to inspection Palpation: soft and no hepatosplenomegaly General: bladder normal to palpation External Female Exam: normal external appearance and normal appearance of the urethra Urethra: normal appearance of the urethra Speculum Exam - Vagina: normal appearance of the vagina and normal vaginal discharge Speculum Exam - Cervix: normal appearance of the cervix Bimanual Exam- Vagina & Uterus: normal bimanual exam, bladder normal to palpation, non-tender and other Bimanual Exam- Adnexa, other: non-tender Skin General: no rashes or lesions noted Neuro Motor: muscle tone normal throughout and no movement abnormalities noted Extrem General: normal to inspection and full ROM Supplemental Info ACOG book given and patient encouraged to read about nutrition, exercise, weight gain, and food avoidance in . Coding Level of Care Code Off vis,est,level 4 Diagnoses Obesity affecting O99.210 History of induced hypertension Z87.59 History of miscarriage, currently O09.299 History of delivery, currently O34.219 Supervision of high-risk O09.90 9 weeks gestation of Z3A.09 Weeks of gestation: 9 weeks Hyperemesis gravidarum O21.0 Assessment and Plan Assessment and Plan (1) Obesity affecting : Status: Acute Comment: BMI 47.8; HgBA1C ordered w/NOB (2) History of induced hypertension: Status: Acute Comment: First (3) History of miscarriage, currently : Status: Acute Comment: x1; August 2024 (4) History of delivery, currently : Status: Acute Comment: x2, Desires rpt csec w/tubal (5) Supervision of high-risk : Status: Acute Comment: , JIM 07/11/25, PC: Karla, : Jonah (6) : Status: Acute Qualifiers: Weeks of gestation: 9 weeks Qualified Code(s): Z3A.09 - 9 weeks gestation of Comment: Discussed genetic/carrier testing - undecided (7) Hyperemesis gravidarum: Status: Acute Medications: New prochlorperazine maleate (Compazine) 10 mg PO TID 30 tabs 2RF Plan Patient oriented to practice and discussed care expectations and screenings. ACOG book offered to patient. Discussed routine and specially indicated labs if needed- patient consents to testing. See problem list details for plan information. Optional screening including maternal carrier screenings, neural tube defect screening, genetic screening options including quad screen, nuchal translucency, sequential screening, and NIPT screening offered to patient and patient chose: nipt to infusion center first thing tomorrow for IV fluids for excessive vomiting. Also recommend ER tonight if compazine rx does not help. Clinical Quality Measures Falls Risk Screening/Assistive Devices Have you fallen in the past year?: No 12/07/24 9371 <Electronically signed by Josseline Aragon DO> Date _ Josseline Celeste DO Cosigner Signature: Date (if applicable) CC: ~ [facility] Work Phone: Reason for referral (narrative)No reason for [facility] Work Phone: Summary Purpose Family [...] No May 28, 2021 5:18am Power of Creasing Machine Operator No May 28 5:18am Advance Directive Response Recorded Date/ Time Advance Directives No December 24, 2020 12:07pm Living Will No July 05, 2021 2:47pm Power of Creasing Machine Operator No July 05 2:47pm Advance Directive Response Recorded Date/ Time Advance Directives No November 2:33pm Living Will No November 19, 2021 2:33pm Power of Creasing Machine Operator No November 2:33pm Advance Directive Response Recorded Date/ Time Advance Directives No November 1:33pm Living Will No November 19, 2021 1:33pm Power of Creasing Machine Operator No November 1:33pm Advance Directive Response Recorded Date/ Time Advance Directives No August 22 12:25pm Advance Directive Response Recorded Date/ Time Advance Directives No August 22 12:25pm Do you have a Healthcare Power of Creasing Machine Operator? No November 26, 2024 10:55pm Chief Complaint and Reason for Visit Chief Complaint incision check/odor dizzy,swelling,headache 6wk pp / declined iud sore throat Reason for Visit Infection of obstetr ic surgical wound, superficial incisional site Dizziness Headache exam Chief Complaint 6wk pp / declined iu d sore throat [employer] DIVER, EST. CARE, NPP SENT Reason for Visit exam Asthma Depression GI bleeding Iron deficiency anemia Obesity Anemia Chief Complaint sore throat [employer]IVER, EST. CARE, NPP SENT Reason for Visit [...] Date LMP 07/17, early bleeding fu *$ August 24, 2024 11:09am AUB August 30, 2024 2:17 pm SORE THROAT October 05, 2024 8:24 am Reason for Visit Admit Date Abnormal uterine bleeding August 24 11:09am Recurrent loss August 24, 2024 11:09am Sore throat October 05, 2024 8:24 am Chief Complaint Admit Date LMP 07/17, early bleeding fu *$ August 24, 2024 11:09am AUB August 30, 2024 2:17 pm SORE THROAT October 05, 2024 8:24 am Z78.9 DATING November 16, 2024 11:50am Amb Documentation November 25, 2024 10:55am Vag Bld, Preg November 26, 2024 10:08pm OB ER f/u per SM (NOB 12/07)* November 082024 10:17am Reason for Visit Admit Date Abnormal uterine bleeding August 24 11:09am Recurrent loss August 24, 2024 11:09am Sore throat October 05, 2024 8:24 am Threatened miscarriage November 29, 025 10:17am Chief Complaint Admit Date LMP 07/17, early bleeding fu *$ August 24, 2024 11:09am AUB August 30, 2024 2:17 pm SORE THROAT October 05, 2024 8:24 am Z78.9 DATING November 16, 2024 11:50am Amb Documentation November 25, 2024 10:55am Vag Bld, Preg November 26, 2024 10:08pm OB ER f/u per SM (NOB 12/07)* November 082024 10:17am *EST* NOB: US #1 11/17 -> 6.1wk, JIM 07/11December 07, 2024 10:53am Reason for Visit Admit Date Abnormal uterine bleeding August 24 11:09am Recurrent loss August 24, 2024 11:09am Sore throat October 05, 2024 8:24 am Threatened miscarriage November 29, 2 025 10:17am History of delivery, currently December 07, 2024 10:53am History of miscarriage, currently pregna nt December 07, 2024 10:53am History of induced hypertensio n December 07, 2024 10:53am Hyperemesis gravidarum December 07, 2024 10:53am Obesity affecting December 07, 2024 10:53am December 07, 2024 10 :53am Supervision of high-risk Octob er 2024 10:53am Chief Complaint Admit Date LMP 07/17, early bleeding fu *$ 20 August 24, 2024 11:09am AUB August 30, 2024 2:17 pm SORE THROAT October 05, 2024 8:24 am Z78.9 DATING November 16, 2024 11:50am Amb Documentation November 25, 2024 10:55am Vag Bld, Preg November 26, 2024 10:08pm OB ER f/u per SM (NOB 12/07)* November 082024 10:17am *EST* NOB: US #1 11/17 -> 6.1wk, JIM 07/11December 07, 2024 10:53am HYDRATION December 08, 2024 1: 43pm Additional Source Comments INFORMATION SOURCE (unrecogn ized section and content) DATE CREATED AUTHOR 09/14/2020 [facility] DATE CREATED AUTHOR AUTHOR'S ORGANIZ ATION [facility] Goals (unrecognized section and content) Type Care Experience RLTCS with SM Type Detail Care Experience RLTCS with SM Care Experience rpt cs with JV if po ssible Care Teams (unrecognized sec tion and content) Team Status: Active Member Role Status Dates No Primary Care Physician Family Provider Active Dr. Rhina Kulkarni MD Primary Care Provider Active Team Status: Inactive Member Role Status Dates Tonny Costa [employer], [employer]IVER-C Primary Care Provider, Referring Jessica gannon Active Dr. Rhina Kulkarni MD Attending Provider Active Team Status: Inactive Member Role Status Dates Tonny Costa [employer], [employer]-C Primary Care Provider, Referring P rovider Active Andrew Cummings PA, PA Attending Provider Active Team Status: Inactive Member Role Status Dates Dr. Rhina Kulkarni MD Primary Care Pro vider, Attending Provider, Referring Provider Active Team Status: Inactive Member Role Status Dates Tonny Costa [employer], [employer]-C Referring Provider Active Dr. Rhina Kulkarni MD [...] November 02, 2024 End: November 02, 2024 Team Status: Active Member Role/Relationship Status Dates Dr. Rhina Kulkarni MD Primary care physician Active Team Status: Inactive Member Role/Relationship Status Dates Dr. Rhina Kulkarni MD Primary care physician Active Start: August 22, 2024 End: August 22, 2024 Dr. Josseline Celeste DO Attending physician Acti ve Start: August 22, 2024 End: August 22, 2024 Team Status: Inactive Member Role/Relationship Status Dates Dr. Rhina Kulkarni MD Primary care physician Active Start: August 24, 2024 End: August 24, 2024 Dr. Rhina Kulkarni MD Referring Provider Active Start: August 24, 2024 End: August 24, 2024 Dr. Cheryle Meza MD Attending physician Active Start: August 24, 2024 End: August 24, 2024 Team Status: Inactive Member Role/Relationship Status Dates Dr. Rhina Kulkarni MD Primary care physician Active Start: August 24, 2024 End: August 24, 2024 Dr. Cheryle Meza MD Attending physician Active Start: August 24, 2024 End: August 24, 2024 Dr. Cheryle Meza MD Referring Provider Active Start: August 24, 2024 End: August 24, 2024 Team Status: Inactive Member Role/Relationship Status Dates Dr. Rhina Kulkarni MD Primary care physician Active Start: August 30, 2024 End: August 30, 2024 Dr. Cheryle Meza MD Attending physician Active Start: August 30, 2024 End: August 30, 2024 Dr. Cheryle Meza MD Referring Provider Active Start: August 30, 2024 End: August 30, 2024 Team Status: Inactive Member Role/Relationship Status Dates Dr. Rhina Kulkarni MD Primary care physician Active Start: October 05, 2024 End: October 05, 2024 Dr. Rhina Kulkarni MD Referring Provider Active Start: October 05, 2024 End: October 05, 2024 KENDY Taylor Attending physician Active Sta rt: October 05, 2024 End: October 05, 2024 Team Status: Inactive Member Role/Relationship Status Dates Dr. Rhina Kulkarni MD Primary care physician Active Start: October 31, 2024 End: October 31, 2024 Dr. Cheryle Meza MD Attending physician Active Start: October 31, 2024 End: October 31, 2024 Dr. Cheryle Meza MD Referring Provider Active Start: October 31, 2024 End: October 31, 2024 Team Status: Inactive Member Role/Relationship Status Dates Dr. Rhina Kulkarni MD Primary care physician Active Start: November 02, 2024 End: November 02, 2024 Dr. Cheryle Meza MD Attending physician Active Start: November 02, 2024 End: November 02, 2024 Dr. Cheryle Meza MD Referring Provider Active Start: November 02, 2024 End: November 02, 2024 Team Status: Inactive Member Role/Relationship Status Dates Dr. Rhina Kulkarni MD Primary care physician Active Start: November 16, 2024 End: November 16, 2024 Yoon Wilkins CNM Attending physician Active Start: November 16, 2024 End: November 16, 2024 Yoon Wilkins CNM Referring Provider Active S tart: November 16, 2024 End: November 16, 2024 Team Status: Active Member Role/Relationship Status Dates Dr. Rhina Kulkarni MD Primary care physician Active Start: November 25, 2024 Kimberly Werner RN Attending physician Active S tart: November 25, 2024 Team Status: Inactive Member Role/Relationship Status Dates Dr. Rhina Kulkarni MD Primary care physician Active Start: November 26, 2024 End: November 27, 2024 Dr. Mariusz Mueller DO Attending physician Active Start: November 26, 2024 End: November 27, 2024 Dr. Mariusz Mueller DO Emergency Departme nt Physician Active Start: November 26, 2024 End: November 27, 2024 Team Status: Inactive Member Role/Relationship Status Dates Dr. Rhina Kulkarni MD Primary care physician Active Start: November 29, 2024 End: November 29, 2024 Dr. Rhina Kulkarni MD Referring Provider Active Start: November 29, 2024 End: November 29, 2024 Yoon Wilkins CNM Attending physician Active Start: November 29, 2024 End: November 29, 2024 Team Status: Inactive Member Role/Relationship Status Dates Dr. Rhina Kulkarni MD Primary care physician Active Start: December 07, 2024 End: December 07, 2024 Dr. Rhina Kulkarni MD Referring Provider Active Start: December 07, 2024 End: December 07, 2024 Dr. Josseline Celeste DO Attending physician Acti ve Start: December 07, 2024 End: December 07, 2024 Team Status: Active Member Role/Relationship Status Dates Dr. Rhina Kulkarni MD Primary care physician Active Start: December 07, 2024 Dr. Josseline Celeste DO Attending physician Acti ve Start: December 07, 2024 Team Status: Inactive Member Role/Relationship Status Dates Dr. Rhina Kulkarni MD Primary care physician Active Start: December 08, 2024 End: December 08, 2024 Dr. Josseline Celeste DO Attending physician Acti ve Start: December 08, 2024 End: December 08, 2024 Dr. Josseline Celeste DO Referring Provider Activ e Start: December 08, 2024 End: December 08, 2024 Team Status: Inactive Member Role/Relationship Status Dates Dr. Rhina Kulkarni MD Primary care physician Active Start: December 07, 2024 End: December 07, 2024 Dr. Josseline Celeste DO Attending physician Acti ve Start: December 07, 2024 End: December 07, 2024 FOR RECORDS PERTAINING TO PATIENTS WHO [...] BE BASED ON THE PRIMARY CLINICAL RECORDS. [employer] provides no warranty or guarantee of the accuracy or completeness of information in this document.
[2025-02-03] MEDS: 0.9% Normal Saline (1000mL) 1,000 ML 999 ML IV ×2 (04:28→06:06)
--- NOTE | 2025-02-03 04:30 | EX.ED.DYSGE1 ---
HPI History of Present Illness Chief Complaint: Nausea/Vomiting Informant: patient Narrative Narrative: Patient is a G4, P2 with 1 spontaneous miscarriage 29-year-old female who is approximately 17 weeks . She states that she went to bed normally and then awoke around 1 in the morning with bouts of nausea vomiting and diarrhea. She states there is no blood or discoloration to either the stool or emesis. She states that no one else at home is sick. She denies any recent travel outside the country or antibiotic use. She states she has had roughly 10-15 episodes of both vomiting and diarrhea. She states that she is and has concern for dehydration she presents for evaluation. [facility] Medical History Recurrent loss Anxiety GERD (gastroesophageal reflux disease) Abnormal uterine bleeding ASCUS favor benign Irritable bowel syndrome with diarrhea Low iron GI bleeding Oral herpes Home Medications Medication Instructions Recorded Last Taken Type cetirizine 10 mg capsule (Zyrtec) 10 mg PO DAILY PRN allergy symptoms 06/16/22 Unknown History albuterol sulfate 90 mcg/actuation 1 - 2 puff inhalation Q6H PRN 01/13/23 Unknown Rx aerosol inhaler (ProAir HFA) shortness of breath or wheezing #8.5 grams azelastine 0.05 % eye drops 1 drp ophthalmic (eye) BID #6 mL 08/04/23 Unknown Rx docosahexaenoic acid 200 mg 200 mg PO DAILY 11/25/24 Unknown History capsule ( DHA) prochlorperazine maleate 10 mg 10 mg PO TID #30 tabs 12/07/24 Unknown Rx tablet (Compazine) ferrous gluconate 240 mg (27 mg 240 mg PO QDAY #90 tabs 12/16/24 Unknown Rx iron) tablet dicyclomine 20 mg tablet 20 mg PO 4X/DAY PRN Abdominal 02/03/25 Unknown Rx bloating/spasm #28 tabs prochlorperazine maleate 10 mg 10 mg PO TID PRN nausea and 02/03/25 Unknown Rx tablet (Compazine) vomiting #21 tabs Allergy/AdvReac Type Severity Reaction Status Date / Time No Known Allergies Allergy Verified 02/03/25 03:49 Family History Father Epilepsy Migraines Mother Arthritis Anxiety Sister Anxiety Surgical History Encounter for removal of skin lesion History of placement of ear tubes H/O myringotomy History of tonsillectomy History of esophagogastroduodenoscopy (EGD) H/O colonoscopy H/O toe surgery History of cholecystectomy delivery delivered Social History adopted: No household members: spouse and children housing: house number of children: 2 current occupational status: employed current occupation: [employer] current occupational exposures/hazards: Yes (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 ) pets and animals: Yes (Not managing litterbox) pets and animals: cat(s), dog(s) and farm animals history of recent travel: No sexually active: Yes Smoking Status: Never smoker Electronic Cigarette Use: not used second hand exposure: No alcohol intake: never substance use type: does not use well-balanced diet: daily or most days caffeine: Yes Type: coffee Number of servings: 1 eating out: 1-3 times/week during the past year weight has: decreased > 10 lbs what type of physical activity do you participate in: walking frequency: 3-4 times per week duration: 15-30 minutes/day 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 seatbelt use: always do you feel safe at home: Yes additional social history: : [employer] ROS ROS ED Constitutional Constitutional ED: Reports other Details: Positive fatigue ; Denies chills or fever(s) ENT ENT ED: Denies sore throat Cardiovascular Cardiovascular: Denies chest pain or palpitations Respiratory/Chest Respiratory/Chest: Denies cough or dyspnea Gastrointestinal Gastrointestinal: Reports diarrhea, nausea and vomiting; Denies abdominal pain Genitourinary Genitourinary ED: Reports other Details: Negative vaginal bleeding or discharge ; Denies dysuria Musculoskeletal Musculoskeletal: Reports myalgias Integumentary Denies rash Neurologic Neurologic: Denies headache(s) Hematologic/Lymphatic Hematologic/Lymphatic: Denies easy bleeding or easy bruising EXAM Physical Exam Const Vital Signs: 02/03/25 03:47 02/03/25 06:05 Temperature 97 F L Temperature Source Axillary Pulse Rate 112 H 95 Respiratory Rate 20 H 20 H Blood Pressure 141/97 H Blood Pressure Mean 111 Pulse Ox 100 98 Oxygen Delivery Method Room Air Positive well nourished, well developed and obese General Appearance ED: well developed; Negative for pallor Nutritional Appearance: obese HEENT Reports dry mucous membranes HEENT Narrative: Normocephalic atraumatic No tongue or lip swelling no oral lesions no airway edema or compromise; no secondary findings in the posterior pharynx to suggest infection Mucous membranes are dry tacky Mouth ED: Yes dry mucous membranes Mouth: dry mucous membranes Eyes PERRL and EOMs intact bilaterally General Eye ED: Negative for scleral icterus Neck supple Neck Narrative: No nuchal rigidity or meningeal signs Resp normal respiratory effort and clear to auscultation bilaterally Cardio regular rhythm Rate: tachycardic and other Other Details: Tachycardic rate with regular rhythm No murmurs rubs or gallop Radial and carotid pulses are equal and symmetric GI non-tender and non-distended GI Narrative: Abdomen is gravid with fundus consistent with reported gestational age Bowel sounds are hyperactive Otherwise no pain with palpation no voluntary guarding or rigidity or pulsatile mass No peritoneal signs Auscultation: hyperactive bowel sounds Palpation: soft Extremity normal to inspection Neuro oriented x3, CN's II-XII intact bilaterally and no sensory deficits noted Sensorium / Orientation: alert Motor Exam: strength 5/5 throughout Psych mental status grossly normal Skin no rashes or lesions noted and No skin turgor normal Skin Narrative: Skin turgor is increased consistent mild dehydration General Skin Exam: Negative for jaundice or pallor MDM MDM MDM Narrative Medical decision making narrative: Patient arrived to the ER hypertensive and tachycardic. However she has been having multiple bouts of vomiting and diarrhea. She denies any risk factors for infectious diarrhea such as recent antibiotic use or travel outside the country. Moreover her symptoms only been present for a few hours and therefore I do not feel the need for stool study. History and exam is most consistent with a viral stomach infection such as norovirus or rotavirus. Because of the reported significant amount of vomiting and diarrhea I did elect to initially order basic labs to check kidney function and electrolytes. However the blood tubes kept clotting and the patient did not want any further attempts to draw blood and therefore they were canceled. As she is only had symptoms for a few hours the chances that she has developed TAYA or a significant electrolyte abnormality is low. Based on her symptoms and the fact she is she did receive 2 L of IV fluid. She also received Zofran Benadryl and Compazine. Following administration of the fluid and medication patient had no further bouts of vomiting and was able to tolerate oral intake without further symptom. There also was no further bouts of diarrhea. Therefore at this time with improvement of symptoms and improvement of vital signs as well I do not feel the need for further workup or intervention in the ER and she is otherwise safe for discharge. Please note that I did perform a bedside ultrasound documenting intrauterine with active activity and a heart rate of approximately 140 bpm. History & Record Review Discussion w/independent historian: Patient Lab Data Labs: Laboratory Results - last 24 hr 02/03/25 04:10 Sodium Cancelled Potassium Cancelled Chloride Cancelled Carbon Dioxide Cancelled Anion Gap Cancelled BUN Cancelled Creatinine Cancelled Estim Creat Clear Calc Cancelled Est GFR (MDRD) Non-Af Cancelled BUN/Creatinine Ratio Cancelled Glucose Cancelled Calcium Cancelled Magnesium Cancelled Total Bilirubin Cancelled Direct Bilirubin Cancelled AST Cancelled ALT Cancelled Alkaline Phosphatase Cancelled Total Protein Cancelled Albumin Cancelled Globulin Cancelled Lipase Cancelled Discharge Plan Triage Chief Complaint: Nausea/Vomiting ED Provider: Mariusz Mueller Dx/Rx/DC Orders Clinical Impression: Nausea vomiting and diarrhea, Mild dehydration, Instructions: ED Dehydration (Adult), ED Gastroenteritis, Viral (Adult) Prescriptions: New prochlorperazine maleate [Compazine] 10 mg tablet 10 mg PO TID PRN (Reason: nausea and vomiting) Qty: 21 0RF dicyclomine 20 mg tablet 20 mg PO 4X/DAY PRN (Reason: Abdominal bloating/spasm) Qty: 28 0RF No Action Zyrtec 10 mg capsule 10 mg PO DAILY PRN (Reason: allergy symptoms) albuterol sulfate [ProAir HFA] 90 mcg/actuation HFA aerosol inhaler 1 - 2 puff inhalation Q6H PRN (Reason: shortness of breath or wheezing) Qty: 8.5 1RF azelastine 0.05 % drops 1 drp ophthalmic (eye) BID Qty: 6 0RF prochlorperazine maleate [Compazine] 10 mg tablet 10 mg PO TID Qty: 30 2RF DHA 200 mg capsule 200 mg PO DAILY ferrous gluconate 240 mg (27 mg iron) tablet 240 mg PO QDAY Qty: 90 3RF Primary Care Provider: Rhina Kulkarni Referrals: Rhina Kulkarni MD [Primary Care Provider, Internal Medicine] Activity Restrictions/Additional Instructions: Your symptoms and exam are most consistent with a viral stomach infection. This will last anywhere from 24 hours to 10 days with the average being 3 days. Take the prescribed medication as directed to help control symptoms and keep yourself well-hydrated. Return to the ER should you have any further concerns or worsening of symptoms. Print Language: Sami Disposition Disposition: Home, Self Care
[2025-02-03 06:05] VITALS: PULSE 95; RESP 20; O2SAT 98
[2025-02-03] MEDS: DiphenhydrAMINE 50 MG/ML Syringe 25 MG IV (06:24)
[2025-02-03 07:36] VITALS: BP 124/80; PULSE 100; RESP 16; TEMP 36.6; O2SAT 100
== END 2025-02-03 07:38 | disposition home or self-care (01) ==
PROVIDERS: Emergency Provider Emergency Medicine; PCP Internal Medicine; Visit Provider Emergency Medicine
DX: O21.9 Vomiting of pregnancy, unspecified (principal); O99.282 Endocrine, nutritional and metabolic diseases complicating pregnancy, second trimester; E86.0 Dehydration; O99.891 Other specified diseases and conditions complicating pregnancy; R19.7 Diarrhea, unspecified; Z3A.17 17 weeks gestation of pregnancy
CPT/HCPCS: 96361; 96374; 96375; 99282; A4216; J2405

== ENCOUNTER → 2025-03-01 | Outpatient (CLI) | payer MEDICAID, SELFPAY ==
--- NOTE | 2025-03-01 12:41 | US_ITS ---
PROCEDURE: OB ANATOMY W/ TRANSVAGINAL 03/01/2025 REASON FOR EXAM: ANATOMY SCAN TECHNIQUE: Procedure Code: [id number] Modality: US Procedure: OB ANATOMY W/ TRANSVAGINAL COMPARISON: November 26, 2024 FINDINGS Number: 1 Position: Breech Placental Position: Fundal/anterior Placental Abnormalities: No evidence of previa. Grade 1 DIMENSIONS: Biparietal Diameter: 48 mm/20 weeks, 3 days Head Circumference: 64 mm/21 weeks, 2 days Abdominal Circumference: 183 mm/20 weeks, 5 days Femur Length: 34 mm/20 weeks, 4 days ESTIMATED WEIGHT: 385 g ESTIMATED WEIGHT PERCENTILE (24+ weeks): 32% ESTIMATED GESTATIONAL AGE: Baseline: 21 weeks, 1 day By Ultrasound: 20 weeks, 5 days ESTIMATED DATE OF DELIVERY: By Ultrasound: July 14, 2024 BIOPHYSICAL ASSESSMENT: Largest vertical pocket: 4.9 cm Amniotic Fluid Index: (8-24 cm normal range) Cardiac Motion: 143 (average) Trunk and Limb Motion: Present. MATERNAL ANATOMY: Adnexa: Neither maternal ovary is successfully identified. Cervical Length (if measured): 3.9 cm ANATOMY: Spine: Normal Cranium: Normal Cerebellum: Normal Cisterna Magna: Normal Cavum Septum Pellucidi: Normal Lateral Ventricles: Normal Choroid Plexus: Normal Midline Falx: Normal Nuchal Fold: Normal Upper Lip: Normal image 83 Heart: Normal Ventricular Outflow Tracts: Not seen Stomach: Normal Kidneys: Normal Bladder: Normal Umbilical Cord: Normal umbilical cord. Normal abdominal cord insertion and normal placental cord insertion (images 15 and 51) Extremities: Normal US/OB Anatomy w/ Transvaginal IMPRESSION: Single live intrauterine is 20 weeks, 5 days. JIM July 14, 2024. Left and right ventricular outflow tracts not well seen. Otherwise unremarkable. Reading Location: [id number]
--- OUTSIDE RECORDS SUMMARY | 2025-03-01 12:47 | XMS RPT_ITS | CCD ---
Author Organization [facility] Care Team Providers Care Airline Radio Operator Name Role Phone Care Physician, No Primary Primary Care Provider Unavailable Care Physician, No Primary Referring Provider Un available Garland BROADCAST OPERATIONS ENGINEER, BROADCAST OPERATIONS ENGINEER-C Xenia Attending Provider [phone] Dr. Josseline [...] No Primary Referring Provider Un available Costa BROADCAST OPERATIONS ENGINEER, BROADCAST OPERATIONS ENGINEER-C Tonny Attending Provider [phone] Dr. Alondra Ryan Primary Care Provider Costa BROADCAST OPERATIONS ENGINEER, BROADCAST OPERATIONS ENGINEER-C Tonny Primary Care Provider Costa BROADCAST OPERATIONS ENGINEER, BROADCAST OPERATIONS ENGINEER-C Tonny Referring Provider [phone] Care Physician, No Primary Referring Provider Un available Costa BROADCAST OPERATIONS ENGINEER, BROADCAST OPERATIONS ENGINEER-C Tonny Attending Provider [phone] Dr. Alondra Ryan Primary Care Provider Costa BROADCAST OPERATIONS ENGINEER, BROADCAST OPERATIONS ENGINEER-C Tonny Primary Care Provider Costa BROADCAST OPERATIONS ENGINEER, BROADCAST OPERATIONS ENGINEER-C Tonny Referring Provider [phone] Dr. Alondra Ryan Referring Provider [phone] Dr. Antione Sofia Attending Provider Costa BROADCAST OPERATIONS ENGINEER, BROADCAST OPERATIONS ENGINEER-C Tonny Primary Care Provider Costa BROADCAST OPERATIONS ENGINEER, BROADCAST OPERATIONS ENGINEER-C Tonny Referring Provider [phone] DERIC Guevara Attending Provider [phone] Rhina Kulkarni Attending Provider [phone] Costa BROADCAST OPERATIONS ENGINEER, BROADCAST OPERATIONS ENGINEER-C Tonny Primary Care Provider Costa BROADCAST OPERATIONS ENGINEER, BROADCAST OPERATIONS ENGINEER-C Tonny Referring Provider [phone] Dr. Rhina Kulkarni Primary Care Provider Dr. Rhina Kulkarni Referring Provider [phone] Dr. Cristino Harmon Attending Provider [phone] Igor BROADCAST OPERATIONS ENGINEER, BROADCAST OPERATIONS ENGINEER-C Tonny Referring Provider [phone] Dr. Rhina Kulkarni [...] Provider Derrick FLOYD, Dr. Lobato Attending Provider [phone] Dr. Cheryle Meza MD Referring Provider Elicia BROADCAST OPERATIONS ENGINEER-C, Fabrizio Attending Provider Cayla FLOYD, Dr. Lantigua Primary Care Physician Dr. Josseline Celeste DO Attending Physician Derrcik FLOYD, Dr. Lobato Attending Physician Elicia BROADCAST OPERATIONS ENGINEER-C, Fabrizio Attending Physician Yoon Wilkins CNM Attending Physician Yoon Wilkins CNM Referring Provider [phone] Kimberly Werner RN Attending Physician Unavailab eddie Mueller DO, Dr. Vee Attending Physician [phone] Dr. Mariusz Mueller DO Emergency Department Physic marianela Nancy Bucio DO, Dr. Manjarrez Referring Provider Cayla, Rhina Primary Care Unavailable Cayla, Rhina Referring Unavailable Josseline Celeste Attending Unavailabl e Drummond, Rhina Primary Care Unavailable Drummond, Rhina Referring Unavailable Roof KAELA, Jarod Vasquez Attending Unavailable VandJosseline Panda Attending Unavailabl e Drummond, Rhina Primary Care Unavailable Cayla, Rhina Referring Unavailable Cayla, Rhina Primary Care Unavailable Cheryle Meza Attending Unavailable Drummond, Rhina Primary Care Unavailable Drummond, Rhina Referring Unavailable Fabrizio Rubi Attending Unavailable Drummond, Rhina Primary Care Unavailable Drummond, Rhina Referring Unavailable Cheryle Meza Attending Unavailable Cayla, Rhina Primary Care Unavailable Kimberly Werner Attending Unavailable Drummond, Rhina Primary Care Unavailable Vande Josseline Bucio Attending Unavailabl e Drummond, Rhina Primary Care Unavailable Cheryle Meza Attending Unavailable PradipanthonyCheryle Referring Unavailable Drummond, Rhina Primary Care Unavailable Cheryle Meza Attending Unavailable Pradipanthony, Cheryle Referring Unavailable Cayla, Rhina Primary Care Unavailable Mariusz Mueller Attending Unavailable Drummond, Rhina Primary Care Unavailable Vande Josseline Bucio Attending Unavailabl e Cayla, Rhina Primary Care Unavailable Cheryle Meza Attending Unavailable Garcíaony, Cheryle Referring Unavailable Cayla, Rhina Primary Care Unavailable Cheryle Meza Attending Unavailable Cheryle Meza Referring Unavailable Cayla, Rhina Primary Care Unavailable Yoon Wilkins Referring Unavailable Yoon Wilkins Attending Unavailable Cayla, Rhina Primary Care Unavailable Cheryle Meza Referring Unavailable Cheryle Meza Attending Unavailable Drummond, Rhina Primary Care Unavailable Josseline Celeste Referring Unavailabl e Josseline Celeste Attending Unavailabl e Drummond, Rhina Primary Care Unavailable Cayla, Rhina Referring Unavailable Yoon Wilkins Attending Unavailable Medications Current Medications Medication Drug Class(es) Dates Sig (Normalized) Sig (Original) [id number] 200 actuat albuterol 0.09 mg/actuat metered dose [...] oral solution (20 sources) alpha-Adrenergic Agonist, Uncompetitive S-acxntn-K-aspartate Receptor Antagonist, Sigma-1 Agonist Start: 11-19-2021 End: 12-11-2021 Brompheniramine-Pseu doeph-Dm 2-30-10 mg/5 mL syrup Discontinued mL PO November 19, 2021 12:00am December 11, 2021 2:27pm Start: 11-19-2021 End: 12-11-2021 Grxzuqajpvjyfvb-Wodlnxdsu-Jq Discontinued ML PO November 19, 2021 12:00am [...] D2) 1,250 mcg (50,000 unit) capsule Discontinued 05142 U PO EVERY WEEK 02 08November 22, 2021 12:00am April 29, 2022 12:25pm Start: 11-22-2021 End: 04-29-2022 take 80803 [IU] by mouth every week Ergocalciferol (Vitamin D2) Discontinued 89807 UNIT PO EVERY WEEK November 22, 2021 [...] April 28, 2018 5:14pm anemia Fluad Quad 4250-0784(65yr up)(PF) 60 mcg (15 mcg x 4)/0.5mL [...] 2020 12:00am December 28, 2020 11:13am Vit,Florin 83-Oykp-Jdhcd 1 TABLET tablet (8 sources) Start: 02-09-2017 End: 04-28-2018 Vit,Florin 27-Dzjl-Eploi 1 TABLET tablet Discontinued 1 {tbl} PO DAILY February 09, 2017 1:00am April 28, 2018 5:14pm Vit,Apqi45-Griw-Snnpc (10 sources) Start: 02-09-2017 End: 04-28-2018 take 1 tablet by mouth once daily Vit,Kcro04-Ilkb-Vmkyq Discontinued 1 TABLET PO DAILY February 09, 2017 3:19pm April 28, 2018 5:14pm Start: 02-09-2017 End: 04-28-2018 take 1 tablet by mouth once daily Vit,Utzs38-Mppn-Sjdev Discontinued 1 TABLET PO DAILY February 09, 2017 12:00am April 28, 2018 4:14pm Start: 02-09-2017 End: 04-28-2018 take 1 tablet by mouth once daily Vit,Wirt39-Ehti-Ohqpk Discontinued 1 TABLET PO DAILY February 09, 2017 1:00am April 28, 2018 5:14pm Vit,Fjfd01-Cjbo-Ovidt 1 TABLET tablet (5 sources) Start: 02-09-2017 End: 04-28-2018 take 1 tablet by mouth once daily Vit,Cgbk05-Fkoc-Ruinl 1 TABLET tablet Discontinued 1 {tbl} PO DAILY February 09, 2017 1:00am April 28, 2018 5:14pm Start: 02-09-2017 End: 04-28-2018 take 1 tablet by mouth once daily Vit,Ljcu13-Iuid-Xehup 1 TABLET tablet Discontinued 1 {tbl} PO [...] 07-02-2020 Episodic Comment on above: [facility] Hypertension complicating ; [...] Test Name Value Interpretation Reference Range Facility Head Waitress Office Visit Reporton 01-05-2025 Head Waitress Office Visit Report [facility] [address], [address] [place] [address] OFFICE VISIT Date of Service: 01/05/25 MR#: [id number] Acct: [id number] Name: JANETTE CAMPO AUGUST Rep #: [id number] : 1995 Provider: Dr. 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 Celeste Jonah 08/07/24 4 spontaneous [...] in vis (more content not included)... Normal [facility] CBC W/Diff, Automatedon 10-1 0-2024 Absolute Lymph 1.82 X10 3/uL Normal 0.83-4.51 [facility] Comment on above: Performed By: #### B TS, L501.9985, L3890.6301, L509.4006, L100.0100, L3890.6006, L3890.6102, L509.8002 #### [facility] [address] [place], [address] Absolute Neut 3.2 X10 3/uL Normal 2.0-7.7 [facility] Comment on above: Performed By: #### B TS, L501.9985, L3890.6301, L509.4006, L100.0100, L3890.6006, L3890.6102, L509.8002 #### [facility] [address] [place], [address] Basophils/100 WBC (Bld) 0.2 % Normal 0-1 [facility] Comment on above: Performed By: #### B TS, L501.9985, L3890.6301, L509.4006, L100.0100, L3890.6006, L3890.6102, L509.8002 #### [facility] [address] [place], [address] Eosinophils/100 WBC (Bld) 0.7 % Normal 0-5 [facility] Comment on above: Performed By: #### B TS, L501.9985, L3890.6301, L509.4006, L100.0100, L3890.6006, L3890.6102, L509.8002 #### [facility] [address] [place], [address] Erythrocyte distribution width (RBC) [Ratio] 18.6 % High 11.6-14.6 [facility] Comment on above: Performed By: #### B TS, L501.9985, L3890.6301, L509.4006, L100.0100, L3890.6006, L3890.6102, L509.8002 #### [facility] [address] [place], [address] Hematocrit (Bld) [Volume fraction] 32.4 % Low 37-47 [facility] Comment on above: Performed By: #### B TS, L501.9985, L3890.6301, L509.4006, L100.0100, L3890.6006, L3890.6102, L509.8002 #### [facility] [address] [place], [address] Hemoglobin (Bld) [Mass/Vol] 10.2 g/dL Low 12.0-15.0 [facility] Comment on above: Performed By: #### B TS, L501.9985, L3890.6301, L509.4006, L100.0100, L3890.6006, L3890.6102, L509.8002 #### [facility] [address] [place], [address] IG% 0.200 Normal 0.0-0.9 [facility] Comment on above: Result Comment: IG% - Immature Granulocytes (promyelocytes, myelocytes and metamyelocytes) > 1% indicates that a LEFT SHIFT is Present. Performed By: #### B TS, L501.9985, L3890.6301, L509.4006, L100.0100, L3890.6006, L3890.6102, L509.8002 #### [facility] [address] [place], [address] Lymphocytes/100 WBC (Bld) 33.2 % Normal 19-41 [facility] Comment on above: Performed By: #### B TS, L501.9985, L3890.6301, L509.4006, L100.0100, L3890.6006, L3890.6102, L509.8002 #### [facility] [address] [place], [address] MCH (RBC) [Entitic mass] 22.7 pg Low 27.0-32.0 [facility] Comment on above: Performed By: #### B TS, L501.9985, L3890.6301, L509.4006, L100.0100, L3890.6006, L3890.6102, L509.8002 #### [facility] [address] [place], [address] MCHC (RBC) [Mass/Vol] 31.5 g/dL Low 32-[address] [facility] Comment on above: Performed By: #### B TS, L501.9985, L3890.6301, L509.4006, L100.0100, L3890.6006, L3890.6102, L509.8002 #### [facility] [address] [place], [address] MCV (RBC) [Entitic vol] 72.0 fL Low 81-99 [facility] Comment on above: Performed By: #### B TS, L501.9985, L3890.6301, L509.4006, L100.0100, L3890.6006, L3890.6102, L509.8002 #### [facility] [address] [place], [address] Monocytes/100 WBC (Bld) 8.2 % Normal 0-10 [facility] Comment on above: Performed By: #### B TS, L501.9985, L3890.6301, L509.4006, L100.0100, L3890.6006, L3890.6102, L509.8002 #### [facility] [address] [place], [address] Neutrophils/100 WBC (Bld) 57.5 % Normal 47-70 [facility] Comment on above: Performed By: #### B TS, L501.9985, L3890.6301, L509.4006, L100.0100, L3890.6006, L3890.6102, L509.8002 #### [facility] [address] [place], [address] Nucleated RBC (Bld) [#/Vol] 0 10*3/uL Normal 0-5 [facility] Comment on above: Performed By: #### B TS, L501.9985, L3890.6301, L509.4006, L100.0100, L3890.6006, L3890.6102, L509.8002 #### [facility] [address] [place], [address] Platelet mean volume (Bld) [Entitic vol] 10.2 fL Normal 6.2-12.0 [facility] Comment on above: Performed By: #### B TS, L501.9985, L3890.6301, L509.4006, L100.0100, L3890.6006, L3890.6102, L509.8002 #### [facility] [address] [place], [address] Platelets (Bld) [#/Vol] 215 10*3/uL Normal 150-450 [facility] Comment on above: Performed By: #### B TS, L501.9985, L3890.6301, L509.4006, L100.0100, L3890.6006, L3890.6102, L509.8002 #### [facility] [address] [place], [address] RBC (Bld) [#/Vol] 4.50 10*6/uL Normal 4.2-5.4 [facility] Comment on above: Performed By: #### B TS, L501.9985, L3890.6301, L509.4006, L100.0100, L3890.6006, L3890.6102, L509.8002 #### [facility] [address] [place], [address] RDW SD 47.5 fl High 35.1-43.9 [facility] Comment on above: Performed By: #### B TS, L501.9985, L3890.6301, L509.4006, L100.0100, L3890.6006, L3890.6102, L509.8002 #### [facility] [address] [place], [address] WBC (Bld) [#/Vol] 5.5 10*3/uL Normal 4.4-11.0 [facility] Comment on above: Performed By: #### B TS, L501.9985, L3890.6301, L509.4006, L100.0100, L3890.6006, L3890.6102, L509.8002 #### [facility] [address] [place], [address] HIVon 12-16-2024 HIV Non-Reactive Normal Nonreactive [facility] Comment on above: Result Comment: Non- Reactive Reactive Repeatedly reactive samples must be confirmed according to CDC recommended confirmatory algorithms. The subresults for either HIVAG or AHIV can be used as an aid in the selection of the confirmation algorithm for reactive samples. Send out specimens with Reactive results to [facility] for confirmation. Order the HIV antibody detection and differentiation: lc#[id number] Performed By: #### B TS, L501.9985, L3890.6301, L509.4006, L100.0100, L3890.6006, L3890.6102, L509.8002 ####[facility] [id number] [facility] [place], [address] Hemoglobin A1con 12-16-2024 HbA1c (Bld) [Mass fraction] 5.4 % Normal <=5.6 [facility] Comment on above: Result Comment: Norm al < 5.7 % Prediabetic 5.7 - 6.4 % Diabetic >or= 6.5 % Please note range changes. Performed By: #### B TS, L501.9985, L3890.6301, L509.4006, L100.0100, L3890.6006, L3890.6102, L509.8002 #### [facility] [address] [facility] [place], [place], [address] Hepatitis C Antibodyon 12-16 Hepatitis C Ab Non-Reactive Normal Nonreactive [facility] Comment on above: Result Comment: Reac tive: Presumptive evidence of antibodies to HCV. Follow CDC recommendations for supplemental testing. Non-Reactive: Antibodies to HCV were not detected; does not exclude the possibility of exposure to HCV Reactive Results are presumptive evidence of antibodies to HCV. Follow CDC recommendations for supplemental testing. Order confirmation testing: HCV Quant by PCR testing - HCVPCR #[id number] Non Reactive: < 0.8 Equivocal: >/= 0.8 to < 1.0 Reactive: >/= 1.0 The CDC requires that a reactive/equivocal HCV antibody result be sent out for confirmation. HCV Quant by PCR testing. Performed By: #### B TS, L501.9985, L3890.6301, L509.4006, L100.0100, L3890.6006, L3890.6102, L509.8002 ####[facility] [id number] [place], [address] L3890.6102on 12-16-2024 HEP B Surf Ag Non-Reactive Normal Nonreactive [facility] Comment on above: Result Comment: Reac tive: Presumptive evidence of HBV. Repeatedly reactive samples must be confirmed using a neutralization test ([employer] HBsAg Confirmatory Test) Non-Reactive: HBsAg not detected; does not exclude the possibility of exposure to HBV Performed By: #### B TS, L501.9985, L3890.6301, L509.4006, L100.0100, L3890.6006, L3890.6102, L509.8002 ####[facility] [address] [place], [address] L509.4006on 12-16-2024 Rubella IgG REAC Normal Nonreactive [facility] Comment on above: Result Comment: Anti body Result: Interpretation Non-Reactive: Non-Immune Reactive: Immune The following results were obtained with the [employer] Rubella IgG assay. Results from assays of other manufacturers cannot be used interchangeably. Performed By: #### B TS, L501.9985, L3890.6301, L509.4006, L100.0100, L3890.6006, L3890.6102, L509.8002 #### [facility] [address] [place], [address] NATERAon 12-16-2024 NATURA SEE SCANNED REPORT Normal [facility] Comment on above: Performed By: #### L 900.0098 ####[facility] [address] [place], [address] Syphilis Antibodieson 2024 Syphilis Abs Non-Reactive Normal Nonreactive [facility] Comment on above: Performed By: #### B TS, L501.9985, L3890.6301, L509.4006, L100.0100, L3890.6006, L3890.6102, L509.8002 ####[facility] [address] [place], [address] Type AND Screenon 12-16-2024 Ab SCREEN GEL Negative Normal [facility] Comment on above: Order Comment: PN Performed By: #### B TS, L501.9985, L3890.6301, L509.4006, L100.0100, L3890.6006, L3890.6102, L509.8002 #### [facility] [address] [place], [address] Chlamydia/GC DAVE aptimaon CHLAMY,NUC ACID Negative Normal Negative [facility] Comment on above: Performed By: #### L 700.8000 #### [facility] [address] [place], [address] GC BY NUC ACID Negative Normal Negative [facility] Comment on above: Result Comment: Perf ormed at: =G - [facility] [address] [id number] Maintenance Mechanic Supervisor: Belkys Carrera MD, Phone: [phone] Performed By: #### L 700.8000 #### [facility] [address] [place] [place], [address] Urine Cultureon 12-09-2024 URC Mixed Gram Positive Organisms [place] Count 50,000-80,000 MIXC Mixed contaminants. Submit a new specimen if indicated. Normal [facility] Comment on above: Performed By: #### L 700.8000 #### [facility] [address] [place], [address] Chlamydia trachomatis rRNA d etection by probe and target amplification methodOrdered By: Josseline Bucio on 12-07-2024 C. trachomatis rRNA DAVE+probe Ql (Unsp spec) Negative Negative [facility] Neisseria gonorrhoeae nuclei c acid detection by amplified probe techniqueOrdered By: Josseline Bucio on 12-07-2024 N. gonorrhoeae DNA DAVE+probe Ql (Unsp spec) Negative Negative [facility] Comment on above: Performed at: =G - [facility] [address] [id number] Director: Belkys Carrera MD, Phone: [phone] Head Waitress Office Visit Reporton 12-07-2024 Head Waitress Office Visit Report [address], [address] [place] [address] OFFICE VISIT Date of Service: 12/07/24 MR#: [id number] Acct: [id number] Name: JANETTE CAMPO AUGUST Rep #: [id number] : 1995 Provider: Dr. 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 Morales 08/07/24 4 spontaneous Jonah [...] list details (more content not included)... Normal [facility] Urine cultureOrdered By: Marilyn Bucio on 12-07-2024 Bacteria identified Cx Nom (U) Positive Abnormal [facility] Head Waitress Office Visit Reporton 11-29-2024 Head Waitress Office Visit Report [facility] [address], [address] [place] [address] OFFICE VISIT Date of Service: 11/29/24 MR#: [id number] Acct: [id number] Name: JANETTE CAMPO AUGUST Rep #: [id number] : 1995 Provider: WILLIAM Goldberg ams Age/Sex: 29/F Location: 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 Celeste Jonah 08/07/24 4 spontaneous [...] reviewed an (more content not included)... Normal [facility] Emergency Department Summary on 11-27-2024 Emergency Department Summary [facility] Medical Records Department [address] [place] [address] Emergency Department Summary 11/27/24 MR#: [id number] Acct: [id number] Name: JANETTE CAMPO AUGUST Rep #: [id number] : 1995 29 From: Mariusz Mueller DO [...] therefore comes to the hospital for evaluation. [facility] Medical History (Updated 11/27/24 @ 01:[address] 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 Normal [facility] hCG Titer Quant., Serumon HCG QUANT. 31511 mIU/mL High <9 non-preg [facility] Comment on above: Result Comment: Gest ational Age 0.2-1 Week: 5-50 mIU/mL 1-2 Weeks: 50-500 mIU/mL 2-3 Weeks: 100-5000 mIU/mL 3-4 Weeks: 500-10,000 mIU/mL 4-5 Weeks:1000-50,000 mIU/mL 5-6 Weeks: 10,000-100,000 mIU/mL 6-8 Weeks: 15,000-200,000 mIU/mL 2-3 Months:10,000-100,000 mIU/mL Performed By: #### L 700.8000, L500.2500, L100.0100 #### [facility] [address] [place], [place], [id number] Absolute lymphocyte countOrd ered By: Mariusz Mueller on 11-26-2024 Lymphocytes Auto (Unsp spec) [#/Vol] 3.15 10*3/uL 0.83-4.51 [facility] Absolute neutrophil countOrd ered By: Mariusz Mueller on 11-26-2024 Neutrophils (Bld) [#/Vol] 5.8 10*3/uL 2.0-7.7 [facility] Anion gap in Serum or Plasma Ordered By: Mariusz Mueller on 11-26-2024 Anion gap [Moles/Vol] 11 mmol/L 07-[address] [facility] Automated lymphocyte count a s percentage of total leukocytesOrdered By: Mariusz Mueller on 11-26-2024 Lymphocytes/100 WBC Auto (Unsp spec) 31.9 % - [facility] BUN/creatinine ratioOrdered By: Mariusz Mueller on 11-26-2024 Urea nitrogen/Creatinine [Mass ratio] 15.1 mg/mg 12-26 [facility] Basic Metabolic Profile (BMP )on 11-26-2024 BUN/CRE 15.1 RATIO Normal 12-26 [facility] Comment on above: Performed By: #### L 700.8000, L500.2500, L100.0100 #### [facility] [address] [place], [address] Calcium [Mass/Vol] 9.4 mg/dL Normal 7.6-11.0 [facility] Comment on above: Performed By: #### L 700.8000, L500.2500, L100.0100 #### [facility] [address] [place], [address] Chloride [Moles/Vol] 102 mmol/L Normal 98-108 [facility] Comment on above: Performed By: #### L 700.8000, L500.2500, L100.0100 #### [facility] [address] [place], [address] CO2 [Moles/Vol] 21.8 mmol/L Normal 21.0-32.0 [facility] Comment on above: Performed By: #### L 700.8000, L500.2500, L100.0100 #### [facility] [address] [place], [address] Creatinine [Mass/Vol] 0.88 mg/dL Normal 0.70-1.[address] [facility] Comment on above: Performed By: #### L 700.8000, L500.2500, L100.0100 #### [facility] [address] [place], [address] ECRCL 107.33 ml/min Normal 50-250 [facility] Comment on above: Performed By: #### L 700.8000, L500.2500, L100.0100 #### [facility] [address] [place], [address] GAP 11 Normal 5-15 [facility] Comment on above: Performed By: #### L 700.8000, L500.2500, L100.0100 #### [facility] [address] [place], [address] GFR/1.73 sq M.predicted among non-blacks MDRD (S/P/Bld) [Vol rate/Area] 91 mL/min/{1.73_m2} Normal >60 [facility] Comment on above: Result Comment: mL/m in/1.73m2 CKD-EPI Creatinine Equation (2020) Performed By: #### L 700.8000, L500.2500, L100.0100 #### [facility] [address] [place], [address] Glucose [Mass/Vol] 92 mg/dL Normal 70-99 [facility] Comment on above: Performed By: #### L 700.8000, L500.2500, L100.0100 #### [facility] [address] [place], [address] Potassium [Moles/Vol] 3.9 mmol/L Normal 3.3-5.[address] [facility] Comment on above: Performed By: #### L 700.8000, L500.2500, L100.0100 #### [facility] [address] [place], [address] Sodium [Moles/Vol] 135 mmol/L Normal 133-145 [facility] Comment on above: Performed By: #### L 700.8000, L500.2500, L100.0100 #### [facility] [address] [place], [address] Urea nitrogen [Mass/Vol] 13 mg/dL Normal 4-19 [facility] Comment on above: Performed By: #### L 700.8000, L500.2500, L100.0100 #### [facility] [address] [place], [address] Basophil percentageOrdered B y: Mariusz Mueller on 11-26-2024 Basophils/100 WBC (Bld) 0.3 % 0-1 [facility] CBC W/Diff, Automatedon 11-08 Absolute Lymph 3.15 X10 3/uL Normal 0.83-4.51 [facility] Comment on above: Performed By: #### L 700.8000, L500.2500, L100.0100 #### [facility] [address] [place], [address] Absolute Neut 5.8 X10 3/uL Normal 2.0-7.7 [facility] Comment on above: Performed By: #### L 700.8000, L500.2500, L100.0100 #### [facility] [address] [place], [address] Basophils/100 WBC (Bld) 0.3 % Normal 0-1 [facility] Comment on above: Performed By: #### L 700.8000, L500.2500, L100.0100 #### [facility] [address] [place], [address] Eosinophils/100 WBC (Bld) 1.1 % Normal 0-5 [facility] Comment on above: Performed By: #### L 700.8000, L500.2500, L100.0100 #### [facility] [address] [place], [address] Erythrocyte distribution width (RBC) [Ratio] 18.6 % High 11.6-14.6 [facility] Comment on above: Performed By: #### L 700.8000, L500.2500, L100.0100 #### [facility] [address] [place], [address] Hematocrit (Bld) [Volume fraction] 32.1 % Low 37-47 [facility] Comment on above: Performed By: #### L 700.8000, L500.2500, L100.0100 #### [facility] [address] [place], [address] Hemoglobin (Bld) [Mass/Vol] 10.2 g/dL Low 12.0-15.0 [facility] Comment on above: Performed By: #### L 700.8000, L500.2500, L100.0100 #### [facility] [address] [place], [address] IG% 0.300 Normal 0.0-0.9 [facility] Comment on above: Result Comment: IG% - Immature Granulocytes (promyelocytes, myelocytes and metamyelocytes) > 1% indicates that a LEFT SHIFT is Present. Performed By: #### L 700.8000, L500.2500, L100.0100 #### [facility] [address] [place], [address] Lymphocytes/100 WBC (Bld) 31.9 % Normal 19-41 [facility] Comment on above: Performed By: #### L 700.8000, L500.2500, L100.0100 #### [facility] [address] [facility] [place], [address] MCH (RBC) [Entitic mass] 22.9 pg Low 27.0-32.0 [facility] Comment on above: Performed By: #### L 700.8000, L500.2500, L100.0100 #### [facility] [address] [place], [address] MCHC (RBC) [Mass/Vol] 31.8 g/dL Low 32-[address] [facility] Comment on above: Performed By: #### L 700.8000, L500.2500, L100.0100 #### [facility] [address] [place], [address] MCV (RBC) [Entitic vol] 72.0 fL Low 81-99 [facility] Comment on above: Performed By: #### L 700.8000, L500.2500, L100.0100 #### [facility] [address] [place], [address] Monocytes/100 WBC (Bld) 7.7 % Normal 0-10 [facility] Comment on above: Performed By: #### L 700.8000, L500.2500, L100.0100 #### [facility] [address] [place], [address] Neutrophils/100 WBC (Bld) 58.7 % Normal 47-70 [facility] Comment on above: Performed By: #### L 700.8000, L500.2500, L100.0100 #### [facility] [address] [place], [address] Nucleated RBC (Bld) [#/Vol] 0 10*3/uL Normal 0-5 [facility] Comment on above: Performed By: #### L 700.8000, L500.2500, L100.0100 #### [facility] [address] [place], [address] Platelet mean volume (Bld) [Entitic vol] 10.1 fL Normal 6.2-12.0 [facility] Comment on above: Performed By: #### L 700.8000, L500.2500, L100.0100 #### [facility] [address] [place], [address] Platelets (Bld) [#/Vol] 249 10*3/uL Normal 150-450 [facility] Comment on above: Performed By: #### L 700.8000, L500.2500, L100.0100 #### [facility] [address] [place], [address] RBC (Bld) [#/Vol] 4.46 10*6/uL Normal 4.2-5.4 [facility] Comment on above: Performed By: #### L 700.8000, L500.2500, L100.0100 #### [facility] [address] [place], [address] RDW SD 47.5 fl High 35.1-43.9 [facility] Comment on above: Performed By: #### L 700.8000, L500.2500, L100.0100 #### [facility] [address] [place], [address] WBC (Bld) [#/Vol] 9.9 10*3/uL Normal 4.4-11.0 [facility] Comment on above: Performed By: #### L 700.8000, L500.2500, L100.0100 #### [facility] [address] [place], [address] Carbon dioxide, total [Moles /volume] in Central venous bloodOrdered By: Mariusz Mueller on 11-26-2024 CO2 [Moles/Vol] 21.8 mmol/L 21.0-32.0 [facility] Chloride assayOrdered By: Armida Mueller on 11-26-2024 Chloride [Moles/Vol] 102 mmol/L 98-108 [facility] Eosinophil percentageOrdered By: Mariusz Mueller on 11-26-2024 Eosinophils/100 WBC (Bld) 1.1 % 0-5 [facility] Erythrocyte distribution wid th ratioOrdered By: Mariusz Mueller on 11-26-2024 Erythrocyte distribution width (RBC) [Ratio] 18.6 % High 11.6-14.6 [facility] Erythrocyte distribution wid th standard deviationOrdered By: Mariusz Mueller on 11-26-2024 Erythrocyte distribution width (RBC) [Ratio] 47.5 fl High 35.1-43.9 [facility] Glomerular filtration rate ( GFR) estimation/1.73 sq m using serum, plasma, or whole bOrdered By: Mariusz Mueller on 11-26-2024 GFR/1.73 sq M.predicted among non-blacks MDRD (S/P/Bld) [Vol rate/Area] 91 mL/min/{1.73_m2} >60 [facility] Comment on above: mL/min/1.73m2 CKD-EP I Creatinine Equation (2020) Hematocrit Auto (Bld) [Volum e fraction]Ordered By: Mariusz Mueller on 11-26-2024 Hematocrit (Bld) [Volume fraction] 32.1 % Low 37-47 [facility] Hemoglobin measurementOrdere d By: Mariusz Mueller on 11-26-2024 Hemoglobin (Bld) [Mass/Vol] 10.2 g/dL Low 12.0-15.0 [facility] Immature granulocytes/100 WB C Auto (Bld)Ordered By: Mariusz Mueller on 11-26-2024 Immature granulocytes/100 WBC (Bld) 0.300 % 0.0-0.9 [facility] Comment on above: IG% - Immature Granu locytes (promyelocytes, myelocytes and metamyelocytes) > 1% indicates that a LEFT SHIFT is Present. MCV (mean corpuscular volume ) determinationOrdered By: Mariusz Mueller on 11-26-2024 MCV (RBC) [Entitic vol] 72.0 fL Low 81-99 [facility] Mean corpuscular hemoglobin (MCH) determinationOrdered By: Mariusz Mueller on 11-26-2024 MCH (RBC) [Entitic mass] 22.9 pg Low 27.0-32.0 [facility] Mean corpuscular hemoglobin concentration (MCHC) determinationOrdered By: Mariusz Mueller on 11-26-2024 MCHC (RBC) [Mass/Vol] 31.8 g/dL Low 32-[address] [facility] Mean platelet volume determi nationOrdered By: Mariusz Mueller on 11-26-2024 Platelet mean volume (Bld) [Entitic vol] 10.1 fL 6.2-12.0 [facility] Monocyte percentageOrdered B y: Mariusz Mueller on 11-26-2024 Monocytes/100 WBC (Bld) 7.7 % 0-10 [facility] Neutrophil percentageOrdered By: Mariusz Mueller on 11-26-2024 Neutrophils/100 WBC (Bld) 58.7 % 47-70 [facility] Nucleated red blood cell per centageOrdered By: Mariusz Mueller on 11-26-2024 Nucleated RBC/100 WBC (Bld) [Ratio] 0 % 0-5 [facility] Platelet countOrdered By: Armida Mueller on 11-26-2024 Platelets (Bld) [#/Vol] 249 10*3/uL 150-450 [facility] Potassium measurement (mass/ volume)Ordered By: Mariusz Mueller on 11-26-2024 Potassium (Unsp spec) [Mass/Vol] 3.9 mmol/L 3.3-5.1 [facility] RBC Auto (Bld) [#/Vol]Ordere d By: Mariusz Mueller on 11-26-2024 RBC (Bld) [#/Vol] 4.46 10*6/uL 4.2-5.4 [facility] Serum creatinine measurement (mass/volume)Ordered By: Mariusz Mueller on 11-26-2024 Creatinine [Mass/Vol] 0.88 mg/dL 0.70-1.[address] [facility] Serum glucose measurement (m ass/volume)Ordered By: Mariusz Mueller on 11-26-2024 Glucose [Mass/Vol] 92 mg/dL 70-99 [facility] Serum human chorionic gonado tropin detection for pregnancyOrdered By: Mariusz Mueller on 11-26-2024 HCG ( [place] [address] mIU/mL High <9 [facility] Comment on above: Gestational Age0.2-1 Week: 5-50 mIU/mL1-2 Weeks: 50-500 mIU/mL2-3 Weeks: 100-5000 mIU/mL3-4 Weeks: 500-10,000 mIU/mL4-5 Weeks:1000-50,000 mIU/mL5-6 Weeks: 10,000-100,000 mIU/mL6-8 Weeks: 15,000-200,000 mIU/mL2-3 Months:10,000-100,000 mIU/mL Serum or plasma calcium morales urement (mass/volume)Ordered By: Mariusz Mueller on 11-26-2024 Calcium [Mass/Vol] 9.4 mg/dL 7.6-11.0 [facility] Serum or plasma urea nitroge n measurement (mass/volume)Ordered By: Mariusz Mueller on 11-26-2024 Urea nitrogen [Mass/Vol] 13 mg/dL 4-19 [facility] Sodium levelOrdered By: Isaias Mueller on 11-26-2024 Sodium [Moles/Vol] 135 mmol/L 133-145 [facility] Transvaginal w/Preg USon Transvaginal w/Preg [facility] [address] [place] [id number] Transvaginal w/Preg US MR#: [id number] Acct: [id number] Name: JANETTE CAMPO AUGUST Rep #: [id number] : 1995 F 29 From: Evin Streeter MD PCP: Dr. Rhina Kulkarni MD Status: REG ER Study: Transvaginal w/Preg US Date of Exam: 11/26/24 Exam# [id number] Ordering Dr: Mariusz Mueller DO PROCEDURE: TRANSVAGINAL [...] be performed at 19-20 wks. Reading Location: [facility] CC: Dr. Rhina Kulkarni MD; Mariusz Mueller DO Converting Technician: Signed Normal [facility] White blood cell (WBC) count Ordered By: Mariusz Mueller on 11-26-2024 WBC (Bld) [#/Vol] 9.9 10*3/uL 4.4-11.0 [facility] Transvaginal w/Preg USon Transvaginal w/Preg [facility] [address] [place] [address] Transvaginal w/Preg US MR#: [id number] Acct: [id number] Name: JANETTE CAMPO AUGUST Rep #: [id number] : 1995 F 29 From: Mukesh choi MD PCP: Dr. Rhina Kulkarni MD Status: REG CLI Study: Transvaginal w/Preg US Date of Exam: 11/16/24 Exam# [id number] Ordering Dr: Yoon Wilkins CNM PROCEDURE: TRANSVAGINAL [...] and unremarkable. DIMENSIONS: Parameter Measurement / EGA Bird-In-Hand Rump Length: 2 mm/6 weeks and 0 days Gestational Sac: 1.4 cm/6 weeks and 2 days Yolk Sac: 3 mm/ ESTIMATED GESTATIONAL AGE: By Ultrasound: 6 weeks and 1 day ESTIMATED DATE OF DELIVERY: By Ultrasound: July 11, 2025 US/Transvaginal w/Preg US IMPRESSION: Single live intrauterine gestation with a mean gestational age of 6 weeks and 1 day. Reading Location: [id number] CC: WILLIAM Wilkins; Dr. Rhina Kulkarni MD Converting Technician: Signed Normal [facility] Serum human chorionic gonado tropin detection for pregnancyOrdered By: Yoon Wilkins on 11-02-2024 HCG ( test) Ql 75 mIU/mL High <9 [facility] Comment on above: Gestational Age0.2-1 Week: 5-50 mIU/mL1-2 Weeks: 50-500 mIU/mL2-3 Weeks: 100-5000 mIU/mL3-4 Weeks: 500-10,000 mIU/mL4-5 Weeks:1000-50,000 mIU/mL5-6 Weeks: 10,000-100,000 mIU/mL6-8 Weeks: 15,000-200,000 mIU/mL2-3 Months:10,000-100,000 mIU/mL hCG Titer Quant., Serumon HCG QUANT. 75 mIU/mL High <9 non-preg [facility] Comment on above: Result Comment: Gest ational Age 0.2-1 Week: 5-50 mIU/mL 1-2 Weeks: 50-500 mIU/mL 2-3 Weeks: 100-5000 mIU/mL 3-4 Weeks: 500-10,000 mIU/mL 4-5 Weeks:1000-50,000 mIU/mL 5-6 Weeks: 10,000-100,000 mIU/mL 6-8 Weeks: 15,000-200,000 mIU/mL 2-3 Months:10,000-100,000 mIU/mL Performed By: #### L 700.8000 ####[facility] [address] [place], [address] Serum human chorionic gonado tropin detection for pregnancyOrdered By: Yoon Wilkins on 10-31-2024 HCG ( test) Ql 33 mIU/mL High <9 [facility] Comment on above: Gestational Age0.2-1 Week: 5-50 mIU/mL1-2 Weeks: 50-500 mIU/mL2-3 Weeks: 100-5000 mIU/mL3-4 Weeks: 500-10,000 mIU/mL4-5 Weeks:1000-50,000 mIU/mL5-6 Weeks: 10,000-100,000 mIU/mL6-8 Weeks: 15,000-200,000 mIU/mL2-3 Months:10,000-100,000 mIU/mL hCG Titer Quant., Serumon HCG QUANT. 33 mIU/mL High <9 non-preg [facility] Comment on above: Result Comment: Gest ational Age 0.2-1 Week: 5-50 mIU/mL 1-2 Weeks: 50-500 mIU/mL 2-3 Weeks: 100-5000 mIU/mL 3-4 Weeks: 500-10,000 mIU/mL 4-5 Weeks:1000-50,000 mIU/mL 5-6 Weeks: 10,000-100,000 mIU/mL 6-8 Weeks: 15,000-200,000 mIU/mL 2-3 Months:10,000-100,000 mIU/mL Performed By: #### L 700.8000 #### [facility] [address] [place], [address] Rapid group A Streptococcus antigen assay at point of careOrdered By: Fabrizio Rubi on 10-05-2024 S. pyogenes Ag IA.rapid Ql (Throat) Negative [facility] Urgent Care Visit Reporton 0 10-05-2024 Urgent Care Visit Report [facility] [address], [address] [place] [address] OFFICE VISIT Date of Service: 10/05/24 MR#: [id number] Acct: [id number] Name: JANETTE CAMPO AUGUST Rep #: [id number] : 1995 Provider: KENDY Rubi Age/Sex: 29/F Location: [facility] Status: Signed Intake Vital Signs 08/24/24 11:13 10/05/24 08:33 Height 5 ft Weight: 240 lb 6 oz BMI 46.9 BP 122/82 H 114/70 Blood Pressure Location Lt brachial Position Sitting Respiration 15 Pulse 81 Pulse Source NIBP Temp 97.7 F L Temp Source Oral Pulse Oximetry (%) 98 Oxygen Delivery Method room air Intake Visit Reasons: SORE THROAT 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 history of tonsillectomy but has had strep frequently since. concern for [facility] Medical History Irritable bowel syndrome with [...] home: Yes additional social history: - Jonah Shot Man HPI HPI Chief Complaint: ST, BA, chills [...] Kassyigner Signature: Date (if applicable) CC: Normal [facility] Pelvic w/ Transvaginalon Pelvic w/ Transvaginal [facility] [address] [place] [id number] Pelvic w/ Transvaginal MR#: [id number] Acct: [id number] Name: JANETTE CAMPO AUGUST Rep #: [id number] : 1995 F 29 From: Mario Delacruz MD PCP: Dr. Rhina Kulkarni MD Status: [facility] CLI Study: Pelvic w/ Transvaginal Date of Exam: 08/30/24 Exam# [id number] Ordering Dr: Cheryle Meza PROCEDURE: PELVIC W/ [...] TRANSVAGINAL PELVIC ULTRASOUND WITH DOPPLER. Reading Location: [id number] CC: Dr. Rhina Kulkarni MD; Dr. Cheryle Meza MD Converting Technician: Signed Normal [facility] Anticardiolipin IgG, IgMon 0 08-26-2024 ANTICARDIO IgG < 9 Normal 0-14 [facility] Comment on above: Result Comment: Nega tive: <15 Indeterminate: 15 - 20 Low-Med Positive: >20 - 80 High Positive: >80 Performed By: #### L 700.8000 #### [facility] [address] [place], [address] Anticardio.IgM < 9 Normal 0-12 [facility] Comment on above: Result Comment: Nega tive: <13 Indeterminate: 13 - 20 Low-Med Positive: >20 - 80 High Positive: >80 Performed at: - [facility] [id number] Maintenance Mechanic Supervisor: Blue Araya MD, Phone: [phone] Performed at: [facility] [id number] Maintenance Mechanic Supervisor: Charles Daigle PhD, Phone: [phone] Performed By: #### L 700.8000 #### [facility] [address] [place], [address] Beta-2 Glycoprot IgG, A, 06-20-2025 B2 GLYCO I IGA <9 Normal 0-25 [facility] Comment on above: Result Comment: Resu lt Units: GPI IgA units The reference interval reflects a 3SD or 99th percentile interval, which is thought to represent a potentially clinically significant result in accordance with the International Consensus Statement on the classification criteria for definitive antiphospholipid syndrome (APS). J Thromb Haem 2006;4:295-306. Performed By: #### L 700.8000 #### [facility] [address] [place], [address] B2 GLYCO I IGG <9 Normal 0-20 [facility] Comment on above: Result Comment: Resu lt Units: GPI IgG units The reference interval reflects a 3SD or 99th percentile interval, which is thought to represent a potentially clinically significant result in accordance with the International Consensus Statement on the classification criteria for definitive antiphospholipid syndrome (APS). J Thromb Haem 2006;4:295-306. Performed By: #### L 700.8000 #### [facility] [address] [place], [address] B2 GLYCO I IGM <9 Normal 0-32 [facility] Comment on above: Result Comment: Resu lt Units: GPI IgM units The reference interval reflects a 3SD or 99th percentile interval, which is thought to represent a potentially clinically significant result in accordance with the International Consensus Statement on the classification criteria for definitive antiphospholipid syndrome (APS). J Thromb Haem 2006;4:295-306. Performed By: #### L 700.8000 #### [facility] [address] [place], [address] Lupus Anticoagulant Compon 0 6- aPTT Coag (Bld) [Time] 29.7 s Normal 0.0-43.5 [facility] Comment on above: Performed By: #### L 700.8000 #### [facility] [address] [place], [address] DILUTE PT (dPT) 38.4 sec Normal 0.0-47.6 [facility] Comment on above: Performed By: #### L 700.8000 #### [facility] [address] [place], [place], [address] dPT Conf. Ratio 1.09 Ratio Normal 0.00-1.34 [facility] Comment on above: Performed By: #### L 700.8000 #### [facility] [address] [place], [place], [id number] DRVVT 46.9 sec Normal 0.0-47.0 [facility] Comment on above: Performed By: #### L 700.8000 #### [facility] [address] [place], [place], [id number] Interpretation Comment: Normal . [facility] Comment on above: Result Comment: No l upus anticoagulant was detected. Performed By: #### L 700.8000 #### [facility] [address] [place], [address] THROMBIN TIME 18.2 sec Normal 0.0-23.0 [facility] Comment on above: Performed By: #### L 700.8000 #### [facility] [address] [place], [place], [id number] Absolute lymphocyte countOrd ered By: Cheryle Meza on 08-24-2024 Lymphocytes Auto (Unsp spec) [#/Vol] 2.69 10*3/uL 0.83-4.51 [facility] Absolute neutrophil countOrd ered By: Cheryle Meza on 08-24-2024 Neutrophils (Bld) [#/Vol] 3.6 10*3/uL 2.0-7.7 [facility] Automated lymphocyte count a s percentage of total leukocytesOrdered By: Cheryle Meza on 08-24-2024 Lymphocytes/100 WBC Auto (Unsp spec) 38.1 % 19-41 [facility] Basophil percentageOrdered B y: Cheryle Meza on 08-24-2024 Basophils/100 WBC (Bld) 0.3 % 0-1 [facility] CBC W/Diff, Automatedon 08-07 Absolute Lymph 2.69 X10 3/uL Normal 0.83-4.51 [facility] Comment on above: Performed By: #### L 501.9520, L100.0100 ####[facility] [address] [place], [address] Absolute Neut 3.6 X10 3/uL Normal 2.0-7.7 [facility] Comment on above: Performed By: #### L 501.9520, L100.0100 ####[facility] [address] [place], [address] Basophils/100 WBC (Bld) 0.3 % Normal 0-1 [facility] Comment on above: Performed By: #### L 501.9520, L100.0100 ####[facility] [address] [place], [address] Eosinophils/100 WBC (Bld) 2.4 % Normal 0-5 [facility] Comment on above: Performed By: #### L 501.9520, L100.0100 ####[facility] [address] [place], [address] Erythrocyte distribution width (RBC) [Ratio] 16.7 % High 11.6-14.6 [facility] Comment on above: Performed By: #### L 501.9520, L100.0100 ####[facility] [address] [place], [address] Hematocrit (Bld) [Volume fraction] 35.0 % Low 37-47 [facility] Comment on above: Performed By: #### L 501.9520, L100.0100 ####[facility] [address] [place], [address] Hemoglobin (Bld) [Mass/Vol] 10.8 g/dL Low 12.0-15.0 [facility] Comment on above: Performed By: #### L 501.9520, L100.0100 ####[facility] [address] [place], [address] IG% 0.300 Normal 0.0-0.9 [facility] Comment on above: Result Comment: IG% - Immature Granulocytes (promyelocytes, myelocytes and metamyelocytes) > 1% indicates that a LEFT SHIFT is Present. Performed By: #### L 501.9520, L100.0100 ####[facility] [address] [place], [address] Lymphocytes/100 WBC (Bld) 38.1 % Normal 19-41 [facility] Comment on above: Performed By: #### L 501.9520, L100.0100 ####[facility] [address] [place], [address] MCH (RBC) [Entitic mass] 22.8 pg Low 27.0-32.0 [facility] Comment on above: Performed By: #### L 501.9520, L100.0100 ####[facility] [address] [place], [address] MCHC (RBC) [Mass/Vol] 30.9 g/dL Low 32-[address] [facility] Comment on above: Performed By: #### L 501.9520, L100.0100 ####[facility] [address] [place], [address] MCV (RBC) [Entitic vol] 73.8 fL Low 81-99 [facility] [facility] Comment on above: Performed By: #### L 501.9520, L100.0100 ####[facility] [id number] [place], [address] Monocytes/100 WBC (Bld) 7.9 % Normal 0-10 [facility] Comment on above: Performed By: #### L 501.9520, L100.0100 ####[facility] [address] [place], [address] Neutrophils/100 WBC (Bld) 51.0 % Normal 47-70 [facility] Comment on above: Performed By: #### L 501.9519, L100.0100 ####[facility] [address] [place], [address] Nucleated RBC (Bld) [#/Vol] 0 10*3/uL Normal 0-5 [facility] Comment on above: Performed By: #### L 501.9519, L100.0100 ####[facility] [address] [place], [address] Platelet mean volume (Bld) [Entitic vol] 9.9 fL Normal 6.2-12.0 [facility] Comment on above: Performed By: #### L 501.9519, L100.0100 ####[facility] [address] [place], [address] Platelets (Bld) [#/Vol] 274 10*3/uL Normal 150-450 [facility] Comment on above: Performed By: #### L 501.9519, L100.0100 ####[facility] [address] [place], [address] RBC (Bld) [#/Vol] 4.74 10*6/uL Normal 4.2-5.4 [facility] Comment on above: Performed By: #### L 501.9519, L100.0100 ####[facility] [address] [place], [address] RDW SD 44.2 fl High 35.1-43.9 [facility] Comment on above: Performed By: #### L 501.9519, L100.0100 ####[facility] [address] [place], [address] WBC (Bld) [#/Vol] 7.1 10*3/uL Normal 4.4-11.0 [facility] Comment on above: Performed By: #### L .20, L100.0100 ####[facility] [id number] [place], [address] Dilute Deangelo's viper venom timeOrdered By: Cheryle Meza on 08-24-2024 dRVVT Coag (PPP) [Time] 46.9 s 0.0-47.0 [facility] Eosinophil percentageOrdered By: Cheryle Meza on 08-24-2024 Eosinophils/100 WBC (Bld) 2.4 % 0-5 [facility] Erythrocyte distribution wid th ratioOrdered By: Cheryle Meza on 08-24-2024 Erythrocyte distribution width (RBC) [Ratio] 16.7 % High 11.6-14.6 [facility] Erythrocyte distribution wid th standard deviationOrdered By: Cheryle Meza on 08-24-2024 Erythrocyte distribution width (RBC) [Ratio] 44.2 fl High 35.1-43.9 [facility] Hematocrit Auto (Bld) [Volum e fraction]Ordered By: Cheryle Meza on 08-24-2024 Hematocrit (Bld) [Volume fraction] 35.0 % Low 37-47 [facility] Hemoglobin measurementOrdere d By: Cheryle Meza on 08-24-2024 Hemoglobin (Bld) [Mass/Vol] 10.8 g/dL Low 12.0-15.0 [facility] Immature granulocytes/100 WB C Auto (Bld)Ordered By: Cheryle Meza on 08-24-2024 Immature granulocytes/100 WBC (Bld) 0.300 % 0.0-0.9 [facility] Comment on above: IG% - Immature Granu locytes (promyelocytes, myelocytes and metamyelocytes) > 1% indicates that a LEFT SHIFT is Present. MCV (mean corpuscular volume ) determinationOrdered By: Cheryle Meza on 08-24-2024 MCV (RBC) [Entitic vol] 73.8 fL Low 81-99 [facility] Mean corpuscular hemoglobin (MCH) determinationOrdered By: Cheryle Meza on 08-24-2024 MCH (RBC) [Entitic mass] 22.8 pg Low 27.0-32.0 [facility] Mean corpuscular hemoglobin concentration (MCHC) determinationOrdered By: Cherylevictor manuel Meza on 08-24-2024 MCHC (RBC) [Mass/Vol] 30.9 g/dL Low 32-[address] [facility] Mean platelet volume determi nationOrdered By: Cherylevictor manuel Meza on 08-24-2024 Platelet mean volume (Bld) [Entitic vol] 9.9 fL 6.2-12.0 [facility] Monocyte percentageOrdered B y: Cheryle Meza on 08-24-2024 Monocytes/100 WBC (Bld) 7.9 % 0-10 [facility] Neutrophil percentageOrdered By: Cheryle Meza on 08-24-2024 Neutrophils/100 WBC (Bld) 51.0 % 47-70 [facility] Nucleated red blood cell per centageOrdered By: Cheryle Meza on 08-24-2024 Nucleated RBC/100 WBC (Bld) [Ratio] 0 % 0-5 [facility] Head Waitress Office Visit Reporton 08-24-2024 Head Waitress Office Visit Report [facility] [address], [address] [place] [address] OFFICE VISIT Date of Service: 08/24/24 MR#: [id number] Acct: [id number] Name: JANETTE CAMPO AUGUST Rep #: [id number] : 1995 Provider: Dr. Cheryle serra MD Age/Sex: 29/F Location: 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 HPI LMP 5, early bleeding fu *$20 [...] - full term 7lbs 12oz Female epidural [facility] DM Jonah 01/09/21 Ulices 38 live - full term Male spinal [facility] D rJose eD Jesus Evie Delivery Date: 09/04/17 Last Updated [...] acute distress and well developed Orientation: alert [facility] Head: normal to inspection and normocephalic Ears: hearing grossly normal bilaterally and external ears normal Nose: external nose normal and nares normal Face and sinus: normal facial exam Neck Neck: normal visual inspection, no lymphadenopathy and trachea midline Thyroid: thyroid normal Resp Effort Inspection: normal respiratory effort Musc Other: gross (more content not included)... Normal [facility] Platelet countOrdered By: Miguel Angel Meza on 08-24-2024 Platelets (Bld) [#/Vol] 274 10*3/uL 150-450 [facility] RBC Auto (Bld) [#/Vol]Ordere d By: Cheryle Meza on 08-24-2024 RBC (Bld) [#/Vol] 4.74 10*6/uL 4.2-5.4 [facility] Serum beta 2 glycoprotein 1 IgA antibody detectionOrdered By: Cheryle Meza on 08-24-2024 Beta 2 glycoprotein 1 IgA Ql (S) <9 0-25 [facility] Comment on above: Result Units: GPI Ig [...] glycoprotein 1 IgG Ql (S) <9 0-20 [facility] Comment on above: Result Units: GPI Ig [...] glycoprotein 1 IgM Ql (S) <9 0-32 [facility] Comment on above: Result Units: GPI Ig [...] Qn (S) < 9 GPL U/mL 0-14 [facility] Comment on above: Negative: <15 Indete rminate: 15 - 20 Low-Med Positive: >20 - 80 High Positive: >80 TSH DL <= 0.005 mIU/L QnOrde red By: Cheryle Meza on 08-24-2024 TSH Qn 1.740 uIU/mL 0.300-4.200 [facility] Thrombin timeOrdered By: Shar Meza on 08-24-2024 Thrombin time Coag (PPP) [Time] 18.2 sec 0.0-23.0 [facility] Thyroid Stim Hormone (TSH)on 08-24-2024 TSH 1.740 uIU/mL Normal 0.300-4.200 [facility] Comment on above: Performed By: #### L 501.9520, L100.0100 ####[facility] [address] [place], [address] White blood cell (WBC) count Ordered By: Cheryle Meza on 08-24-2024 WBC (Bld) [#/Vol] 7.1 10*3/uL 4.4-11.0 [facility] Ferritinon 08-22-2024 Ferritin [Mass/Vol] 10 ng/mL Low 22-378 [facility] Comment on above: Order Comment: BRODERICK MONGE LLED TO ADD TO PREVIOUS SPECIMEN. CALLED CABRERA Performed By: #### L 503.6030, L503.6550 ####[facility] [address] [facility] [address] Iron measurement (mass/mass) Ordered By: Cheryle Meza on 08-22-2024 Iron (Unsp spec) [Mass/Mass] 17 ug/dL Low 50-170 [facility] Iron+Iron Binding Capacityon 08-22-2024 Iron [Mass/Vol] 17 ug/dL Low 50-170 [facility] Comment on above: Order Comment: BRODERICK MONGE LLED TO ADD TO PREVIOUS SPECIMEN. CALLED CABRERA Performed By: #### L 503.6030, L503.6550 ####[facility] [address] [place], [address] IRON SATURATION 5.0 Low 13-59 [facility] Comment on above: Order Comment: BRODERICK MONGE LLED TO ADD TO PREVIOUS SPECIMEN. CALLED CABRERA Performed By: #### L 503.6030, L503.6550 ####[facility] [address] [place], [address] TIBC 374 ug/dL Normal 250-450 [facility] Comment on above: Order Comment: BRODERICK MONGE LLED TO ADD TO PREVIOUS SPECIMEN. CALLED CABRERA Performed By: #### L 503.6030, L503.6550 ####[facility] [address] [place], [place], [id number] UIBC 357 ug/dL Normal 228-428 [facility] Comment on above: Order Comment: BRODERICK MONGE LLED TO ADD TO PREVIOUS SPECIMEN. CALLED CABRERA Performed By: #### L 503.6030, L503.6550 ####[facility] [address] [place], [place], [id number] No Panel InformationOrdered By: Cheryle Meza on 08-22-2024 Unsaturated Iron Binding Capacity 357 ug/dL 228-428 [facility] Serum human chorionic gonado tropin detection for pregnancyOrdered By: Cheryle Meza on 08-22-2024 HCG ( test) Ql < 1 mIU/mL <9 [facility] Comment on above: Gestational Age0.2-1 Week: 5-50 mIU/mL1-2 Weeks: 50-500 mIU/mL2-3 Weeks: 100-5000 mIU/mL3-4 Weeks: 500-10,000 mIU/mL4-5 Weeks:1000-50,000 mIU/mL5-6 Weeks: 10,000-100,000 mIU/mL6-8 Weeks: 15,000-200,000 mIU/mL2-3 Months:10,000-100,000 mIU/mL Serum or plasma ferritin ulisses surement (mass/volume)Ordered By: Cheryle Meza on 08-22-2024 Ferritin [Mass/Vol] 10 ng/mL Low 22-378 [facility] Serum or plasma iron saturat ion measurement (mass fraction)Ordered By: Cheryle Meza on 08-22-2024 Iron saturation [Mass fraction] 5.0 % Low 13-59 [facility] hCG Titer Quant., Serumon HCG QUANT. < 1 Normal <9 non-preg [facility] Comment on above: Result Comment: Gest ational Age 0.2-1 Week: 5-50 mIU/mL 1-2 Weeks: 50-500 mIU/mL 2-3 Weeks: 100-5000 mIU/mL 3-4 Weeks: 500-10,000 mIU/mL 4-5 Weeks:1000-50,000 mIU/mL 5-6 Weeks: 10,000-100,000 mIU/mL 6-8 Weeks: 15,000-200,000 mIU/mL 2-3 Months:10,000-100,000 mIU/mL Performed By: #### L 700.8000 #### [facility] [address] [place], [address] Urgent Care Visit Reporton 0 - Urgent Care Visit Report [facility] [address], [address] [place] [address] OFFICE VISIT Date of Service: 03/20/24 MR#: [id number] Acct: [id number] Name: JANETTE CAMPO AUGUST Rep #: [id number] : 1995 Provider: KENDY castillo Age/Sex: 29/F Location: [facility] Status: Signed Intake Vital Signs 12/29/23 11:46 03/20/24 12:28 Height 5 ft BP 122/60 H Blood Pressure Location Lt brachial Position Sitting Respiration 17 Pulse 73 Pulse Source NIBP Temp 98.3 F Temp Source Oral Pulse Oximetry (%) 98 Oxygen Delivery Method room air Intake Visit Reasons: CONCERN FOR BRONCHITIS Chief Complaint: chest heaviness/burning, cough, SOB [employer] Required: No Is patient in pain?: No Allergies No Known Allergies Allergy (Verified 03/20/24 12:28) Is last menstrual period known: No Post menopausal: No Patient : No Have you fallen in the past year?: No Nurse's Note: chest heaviness/burning, cough, SOB x 1 week without resolve. hx asthma--feels different. declines viral testing. 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 Normal [facility] - Microbiology an d Antimicrobial susceptibilityon 05-22-2023 S. pyogenes Ag IA Ql (Unsp spec) Negative [facility] No Panel Informationon 05-21 Influenza Types A,B Rapid (Clinic) Pos FLU B&Neg FLU A [facility] Absolute lymphocyte countOrd ered By: Rhina Kulkarni on 03-18-2023 Lymphocytes Auto (Unsp spec) [#/Vol] 2.22 10*3/uL 0.83-4.51 [facility] Basophil percentageOrdered B y: Rhina Kulkarni on 03-18-2023 Basophils/100 WBC (Bld) 0.5 % 0-1 [facility] Eosinophils/100 WBC (Bld) 2.2 % 0-5 [facility] Neutrophils (Bld) [#/Vol] 3.0 10*3/uL 2.0-7.7 [facility] Neutrophils/100 WBC (Bld) 51.0 % 47-70 [facility] WBC (Bld) [#/Vol] 5.9 10*3/uL 4.4-11.0 [facility] Blood erythrocytes count (nu mber/volume)Ordered By: Rhina Kulkarni on 03-18-2023 RBC (Bld) [#/Vol] 4.56 10*6/uL 4.2-5.4 [facility] Blood hemoglobin measurement (mass/volume)Ordered By: Rhina Kulkarni on 03-18-2023 Hemoglobin (Bld) [Mass/Vol] 8.9 g/dL 12.0-15.0 [facility] Blood lymphocytes/100 leukoc ytesOrdered By: Rhina Kulkarni on 03-18-2023 Lymphocytes/100 WBC (Bld) 37.6 % 19-41 [facility] Blood monocytes/100 leukocyt esOrdered By: Rhina Kulkarni on 03-18-2023 Monocytes/100 WBC (Bld) 8.5 % 0-10 [facility] Blood platelet mean volumeOr dered By: Rhina Kulkarni on 03-18-2023 Platelet mean volume (Bld) [Entitic vol] 10.3 fL 6.2-12.0 [facility] Determination of erythrocyte mean corpuscular volume (MCV)Ordered By: Rhina Kulkarni on 03-18-2023 MCV (RBC) [Entitic vol] 69.1 fL 81-99 [facility] Hematocrit Auto (Bld) [Volum e fraction]Ordered By: Rhina Kulkarni on 03-18-2023 Hematocrit (Bld) [Volume fraction] 31.5 % 37-47 [facility] Iron measurement (mass/mass) Ordered By: Rhina Kulkarni on 03-18-2023 Iron (Unsp spec) [Mass/Mass] 16 ug/dL 50-170 [facility] - Hematology and Cell countsOrdered By: Rhina Kulkarni on 03-18-2023 Erythrocyte distribution width (RBC) [Entitic vol] 45.0 fL 35.1-43.9 [facility] Erythrocyte distribution width (RBC) [Ratio] 18.6 % 11.6-14.6 [facility] Immature granulocytes/100 WBC (Bld) 0.200 % 0.0-0.9 [facility] Comment on above: IG% - Immature Granu locytes (promyelocytes, myelocytes and metamyelocytes) > 1% indicates that a LEFT SHIFT is Present. MCH (RBC) [Entitic mass] 19.5 pg 27.0-32.0 [facility] Nucleated RBC/100 WBC (Bld) [Ratio] 0 % 0-5 [facility] MCHC Auto (RBC) [Mass/Vol]Or dered By: Rhina Kulkarni on 03-18-2023 MCHC (RBC) [Mass/Vol] 28.3 g/dL 32-[address] [facility] No Panel InformationOrdered By: Rhina Kulkarni on 03-18-2023 Total Iron Binding Capacity 392 ug/dL 250-450 [facility] Platelets bldOrdered By: Burton Kulkarni on 03-18-2023 Platelets (Bld) [#/Vol] 293 10*3/uL 150-450 [facility] Serum or plasma ferritin ulisses surement (mass/volume)Ordered By: Rhina Kulkarni on 03-18-2023 Ferritin [Mass/Vol] 4 ng/mL 8-252 [facility] Serum or plasma iron saturat ion measurement (mass fraction)Ordered By: hRina Kulkarni on 03-18-2023 Iron saturation [Mass fraction] 4.1 % 15.0-55.0 [facility] Absolute lymphocyte countOrd ered By: Rhina Kulkarni on 01-22-2023 Lymphocytes Auto (Unsp spec) [#/Vol] 2.42 10*3/uL 0.83-4.51 [facility] Basophil percentageOrdered B y: Rhina Kulkarni on 01-22-2023 Basophils/100 WBC (Bld) 0.6 % 0-1 [facility] Bilirubin [Mass/Vol] 0.40 mg/dL 0.20-1.00 [facility] Comment on above: For patients on eltr ombopag therapy, use of Dimension [place] TBIL is not recommended. Chloride [Moles/Vol] 109 mmol/L 98-107 [facility] Cholesterol [Mass/Vol] 134 mg/dL <200 [facility] Comment on above: <200 mg/dL Desirable 200-240 mg/dL Borderline >240 mg/dL High Risk Eosinophils/100 WBC (Bld) 2.1 % 0-5 [facility] Glucose [Mass/Vol] 100 mg/dL 74-106 [facility] Comment on above: Fasting Glucose resu lt from 100 to 125 mg/dL suggests IMPAIRED HOMEOSTASIS per A.D.A. criteria. Neutrophils (Bld) [#/Vol] 3.6 10*3/uL 2.0-7.7 [facility] Neutrophils/100 WBC (Bld) 52.8 % 47-70 [facility] Potassium [Moles/Vol] 3.9 mmol/L 3.5-5.[address] [facility] Protein [Mass/Vol] 7.4 g/dL 6.4-8.2 [facility] Sodium [Moles/Vol] 141 mmol/L 136-145 [facility] Triglyceride [Mass/Vol] 80 mg/dL <199 [facility] Comment on above: The drugs N-Acetylcy steine and Metamizole may falsely depress this assay.Serum Triglycerides Reference Interval Normal <150 mg/dL Borderline high 150 - 199 mg/dL High 200 - 499 mg/dL Very High > or = 500 mg/dL WBC (Bld) [#/Vol] 6.7 10*3/uL 4.4-11.0 [facility] Blood erythrocytes count (nu mber/volume)Ordered By: Rhina Kulkarni on 01-22-2023 RBC (Bld) [#/Vol] 4.54 10*6/uL 4.2-5.4 [facility] Blood hemoglobin measurement (mass/volume)Ordered By: Rhina Kulkarni on 01-22-2023 Hemoglobin (Bld) [Mass/Vol] 9.1 g/dL 12.0-15.0 [facility] Blood lymphocytes/100 leukoc ytesOrdered By: Rhina Kulkarni on 01-22-2023 Lymphocytes/100 WBC (Bld) 35.9 % 19-41 [facility] Blood monocytes/100 leukocyt esOrdered By: Rhina Kulkarni on 01-22-2023 Monocytes/100 WBC (Bld) 8.5 % 0-10 [facility] Blood platelet mean volumeOr dered By: Rhina Kulkarni on 01-22-2023 Platelet mean volume (Bld) [Entitic vol] 10.1 fL 6.2-12.0 [facility] Determination of erythrocyte mean corpuscular volume (MCV)Ordered By: Rhina Kulkarni on 01-22-2023 MCV (RBC) [Entitic vol] 70.7 fL 81-99 [facility] Hematocrit Auto (Bld) [Volum e fraction]Ordered By: Rhina Kulkarni on 01-22-2023 Hematocrit (Bld) [Volume fraction] 32.1 % 37-47 [facility] Iron measurement (mass/mass) Ordered By: Rhina Kulkarni on 01-22-2023 Iron (Unsp spec) [Mass/Mass] 23 ug/dL 50-170 [facility] - Chemistry and C hemistry - challengeOrdered By: Rhina Kulkarni on 01-22-2023 ALP [Catalytic activity/Vol] 91 U/L 45-117 [facility] ALT [Catalytic activity/Vol] 22 U/L 13-56 [facility] CO2 [Moles/Vol] 28.0 mmol/L 21.0-32.0 [facility] Globulin (S) [Mass/Vol] 4.0 g/dL 2.2-4.2 [facility] Urea nitrogen/Creatinine [Mass ratio] 16.5 mg/mg 10-20 [facility] - Hematology and Cell countsOrdered By: Rhina Kulkarni on 01-22-2023 Erythrocyte distribution width (RBC) [Entitic vol] 47.0 fL 35.1-43.9 [facility] Erythrocyte distribution width (RBC) [Ratio] 18.7 % 11.6-14.6 [facility] Immature granulocytes/100 WBC (Bld) 0.100 % 0.0-0.9 [facility] Comment on above: IG% - Immature Granu locytes (promyelocytes, myelocytes and metamyelocytes) > 1% indicates that a LEFT SHIFT is Present. MCH (RBC) [Entitic mass] 20.0 pg 27.0-32.0 [facility] Nucleated RBC/100 WBC (Bld) [Ratio] 0 % 0-5 [facility] MCHC Auto (RBC) [Mass/Vol]Or dered By: Rhina Kulkarni on 01-22-2023 MCHC (RBC) [Mass/Vol] 28.3 g/dL 32-[address] [facility] No Panel InformationOrdered By: Rhina Kulkarni on 01-22-2023 Estimated GFR (MDRD) Amer 111 mL/min >60 [facility] Comment on above: GFR Calc Estimated GFR (MDRD) Non-Af Amer 92 mL/min >60 [facility] Comment on above: Non- GFR Calc Total Iron Binding Capacity 420 ug/dL 250-450 [facility] Vitamin D 25-Hydroxy 35.2 ng/mL [facility] Comment on above: Vitamin D 25(OH) Sta tus Range Deficiency <20 ng/mL (50nmol/L) Insufficiency 20 - 30 ng/mL (50 - 75 nmol/L) Sufficiency 30 - 100 ng/mL (75 - 250 nmol/L) Toxicity >100 ng/mL (>250 nmol/L) Platelets bldOrdered By: Burton Kulkarni on 01-22-2023 Platelets (Bld) [#/Vol] 302 10*3/uL 150-450 [facility] Serum or plasma albumin morales urement (mass/volume)Ordered By: Rhina Kulkarni on 01-22-2023 Albumin [Mass/Vol] 3.4 g/dL 3.2-5.0 [facility] Serum or plasma albumin/glob ulin mass ratioOrdered By: Rhian Kulkarni on 01-22-2023 Albumin/Globulin [Mass ratio] 0.8 {ratio} 0.9-2.4 [facility] Serum or plasma calcium morales urement (mass/volume)Ordered By: Rhina Kulkarni on 01-22-2023 Calcium [Mass/Vol] 8.5 mg/dL 8.5-10.1 [facility] Serum or plasma cholesterol in HDL measurement (mass/volume)Ordered By: Rhina Kulkarni on 01-22-2023 Cholesterol in HDL [Mass/Vol] 61 mg/dL >40 [facility] Comment on above: The drugs N-Acetylcy steine and Metamizole may falsely depress this assay. Reference Range HDL <40 mg/dL Low HDL Cholesterol HDL >or= 60 mg/dL High HDL Cholesterol Serum or plasma cholesterol in VLDL measurement (mass/volume)Ordered By: Rhina Kulkarni on 01-22-2023 Cholesterol in VLDL [Mass/Vol] 16 mg/dL 5-40 [facility] Serum or plasma creatinine m easurement (mass/volume)Ordered By: Rhina Kulkarni on 01-22-2023 Creatinine [Mass/Vol] 0.79 mg/dL 0.55-1.[address] [facility] Comment on above: The validity of the calculated GFR & GFRAA in patients over 70 years has not been determined. Clinical correlation is essential. Serum or plasma ferritin ulisses surement (mass/volume)Ordered By: Rhina Kulkarni on 01-22-2023 Ferritin [Mass/Vol] 5 ng/mL 8-252 [facility] Serum or plasma iron saturat ion measurement (mass fraction)Ordered By: Rhina Kulkarni on 01-22-2023 Iron saturation [Mass fraction] 5.5 % 15.0-55.0 [facility] Serum or plasma low density lipoprotein (LDL) cholesterol measurement (mass/volume)Ordered By: Rhina Kulkarni on 01-22-2023 Cholesterol in LDL [Mass/Vol] 57 mg/dL 0-130 [facility] Serum or plasma urea nitroge n measurement (mass/volume)Ordered By: Rhina Kulkarni on 01-22-2023 Urea nitrogen [Mass/Vol] 13 mg/dL 7-18 [facility] Thin prep Papanicolaou smear with manual screeningOrdered By: Rhina Kulkarni on 01-22-2023 Thin prep Papanicolaou smear with manual screening 13 U/L 15-37 [facility] Thin prep Papanicolaou smear with manual screening 4 5-15 [facility] Absolute lymphocyte counton 01-14-2022 Lymphocytes Auto (Unsp spec) [#/Vol] 2.34 10*3/uL 0.83-4.51 [facility] Work Phone: Atypical perinuclear antineu trophil cytoplasmic antibodies measurementon 01-14-2022 Neutrophil cytoplasmic Ab.perinuclear.atypic al IF (S) [Titer] <1:20 titer Neg:<1:20 [facility] Work Phone: Comment on above: The atypical pANCA p attern has been observed in asignificant percentage of patients with ulcerative colitis,primary sclerosing cholangitis and autoimmune hepatitis. Basophil percentageon 2021 Basophils/100 WBC (Bld) 0.3 % 0-1 [facility] Work Phone: Eosinophils/100 WBC (Bld) 1.2 % 0-5 [facility] Work Phone: Neutrophils (Bld) [#/Vol] 3.6 10*3/uL 2.0-7.7 [facility] Work Phone: Neutrophils/100 WBC (Bld) 54.2 % 47-70 [facility] Work Phone: WBC (Bld) [#/Vol] 6.6 10*3/uL 4.4-11.0 [facility] Work Phone: Blood erythrocytes count (nu mber/volume)on 01-14-2022 RBC (Bld) [#/Vol] 4.70 10*6/uL 4.2-5.4 [facility] Work Phone: Blood hemoglobin measurement (mass/volume)on 01-14-2022 Hemoglobin (Bld) [Mass/Vol] 11.4 g/dL 12.0-15.0 [facility] Work Phone: Blood lymphocytes/100 leukoc yteson 01-14-2022 Lymphocytes/100 WBC (Bld) 35.5 % 19-41 [facility] Work Phone: Blood monocytes/100 leukocyt eson 01-14-2022 Monocytes/100 WBC (Bld) 8.6 % 0-10 [facility] Work Phone: Blood platelet mean volumeon 01-14-2022 Platelet mean volume (Bld) [Entitic vol] 10.3 fL 6.2-12.0 [facility] Work Phone: Determination of erythrocyte mean corpuscular volume (MCV)on 01-14-2022 MCV (RBC) [Entitic vol] 76.6 fL 81-99 [facility] Work Phone: Hematocrit Auto (Bld) [Volum e fraction]on 01-14-2022 Hematocrit (Bld) [Volume fraction] 36.0 % 37-47 [facility] Work Phone: Laboratory - Hematology and Cell countson 01-14-2022 Erythrocyte distribution width (RBC) [Entitic vol] 41.0 fL 35.1-43.9 [facility] Work Phone: Erythrocyte distribution width (RBC) [Ratio] 15.0 % 11.6-14.6 [facility] Work Phone: Immature granulocytes/100 WBC (Bld) 0.200 % 0.0-0.9 [facility] Work Phone: Comment on above: IG% - Immature Granu locytes (promyelocytes, myelocytes and metamyelocytes) > 1% indicates that a LEFT SHIFT is Present. MCH (RBC) [Entitic mass] 24.3 pg 27.0-32.0 [facility] Work Phone: Nucleated RBC/100 WBC (Bld) [Ratio] 0 % 0-5 [facility] Work Phone: MCHC Auto (RBC) [Mass/Vol]on 01-14-2022 MCHC (RBC) [Mass/Vol] 31.7 g/dL 32-[address] [facility] Work Phone: No Panel Informationon 01-14 Immunoglobulin E 56 IU/mL 6-495 [facility] Work Phone: Comment on above: Performed at: [address] [id number] Director: Charles Daigle PhD, Phone: [phone] at: [address] [id number] Director: Blue Araya MD, Phone: [phone] Platelets bldon 01-14-2022 Platelets (Bld) [#/Vol] 267 10*3/uL 150-450 [facility] Work Phone: Serum Aspergillus flavus ant ibody detection by immunodiffusionon 01-14-2022 A. flavus Ab Immune diff Ql (S) Negative Neg:<1:1 [facility] Work Phone: Serum Aspergillus fumigatus antibody detection by immunodiffusionon 01-14-2022 A. fumigatus Ab Immune diff Ql (S) Negative Neg:<1:1 [facility] Work Phone: Serum Aspergillus niger anti body detection by immunodiffusionon 01-14-2022 A. niger Ab Immune diff Ql (S) Negative Neg:<1:1 [facility] Work Phone: Serum classic neutrophil cyt oplasmic antibody assay (units/volume)on 01-14-2022 Neutrophil cytoplasmic Ab.classic Qn (S) <1:20 titer Neg:<1:20 [facility] Work Phone: Serum perinuclear neutrophil cytoplasmic antibody titer by immunofluorescenceon 01-14-2022 Neutrophil cytoplasmic Ab.perinuclear IF (S) [Titer] <1:20 titer Neg:<1:20 [facility] Work Phone: Comment on above: The presence of posi tive fluorescence exhibiting P-ANCA orC- ANCA patterns alone is not specific for the diagnosis ofWegener's Granulomatosis (WG) or microscopic polyangiitis.Decisions about treatment should not be based solely onANCA IFA results. The International ANCA Group Consensusrecommends follow up testing of positive sera with both IA-3 and MPO-ANCA enzyme immunoassays. As many as 5% serumsamples are positive only by EIA. Ref. AM J Clin [id number];111:507-513. Absolute lymphocyte counton 11-19-2021 Lymphocytes Auto (Unsp spec) [#/Vol] 3.74 10*3/uL 0.83-4.51 [facility] Work Phone: Basophil percentageon 2021 Basophils/100 WBC (Bld) 0.3 % 0-1 [facility] Work Phone: Bilirubin [Mass/Vol] 0.30 mg/dL 0.20-1.00 [facility] Work Phone: Comment on above: For patients on eltr ombopag therapy, use of Dimension [place] TBIL is not recommended. Chloride [Moles/Vol] 106 mmol/L 98-107 [facility] Work Phone: Cholesterol [Mass/Vol] 167 mg/dL <200 [facility] Work Phone: [phone] Comment on above: <200 mg/dL Desirable 200-240 mg/dL Borderline >240 mg/dL High Risk Eosinophils/100 WBC (Bld) 1.8 % 0-5 [facility] Work Phone: [phone] Glucose [Mass/Vol] 93 mg/dL 74-106 [facility] Work Phone: [phone] Neutrophils (Bld) [#/Vol] 6.5 10*3/uL 2.0-7.7 [facility] Work Phone: [phone] Neutrophils/100 WBC (Bld) 57.3 % 47-70 [facility] Work Phone: [phone] Potassium [Moles/Vol] 4.0 mmol/L 3.5-5.[address] [facility] Work Phone: [phone] Protein [Mass/Vol] 7.7 g/dL 6.4-8.2 [facility] Work Phone: [phone] Sodium [Moles/Vol] 138 mmol/L 136-145 [facility] Work Phone: [phone] Triglyceride [Mass/Vol] 243 mg/dL <199 [facility] Work Phone: Comment on above: The drugs N-Acetylcy steine and Metamizole may falsely depress this assay.Serum Triglycerides Reference Interval Normal <150 mg/dL Borderline high 150 - 199 mg/dL High 200 - 499 mg/dL Very High > or = 500 mg/dL WBC (Bld) [#/Vol] 11.3 10*3/uL 4.4-11.0 [facility] Work Phone: [phone] Blood erythrocytes count (nu mber/volume)on 11-19-2021 RBC (Bld) [#/Vol] 5.00 10*6/uL 4.2-5.4 [facility] Work Phone: [phone] Blood hemoglobin measurement (mass/volume)on 11-19-2021 Hemoglobin (Bld) [Mass/Vol] 12.5 g/dL 12.0-15.0 [facility] Work Phone: Blood lymphocytes/100 leukoc yteson 11-19-2021 Lymphocytes/100 WBC (Bld) 33.2 % 19-41 [facility] Work Phone: Blood monocytes/100 leukocyt eson 11-19-2021 Monocytes/100 WBC (Bld) 7.0 % 0-10 [facility] Work Phone: Blood platelet mean volumeon 11-19-2021 Platelet mean volume (Bld) [Entitic vol] 10.4 fL 6.2-12.0 [facility] Work Phone: Determination of erythrocyte mean corpuscular volume (MCV)on 11-19-2021 MCV (RBC) [Entitic vol] 78.0 fL 81-99 [facility] Work Phone: Erythrocyte sedimentation ra martha 11-19-2021 ESR (Bld) [Velocity] 47 mm/h 0-30 [facility] Work Phone: Hematocrit Auto (Bld) [Volum e fraction]on 11-19-2021 Hematocrit (Bld) [Volume fraction] 39.0 % 37-47 [facility] Work Phone: Iron measurement (mass/mass) on 11-19-2021 Iron (Unsp spec) [Mass/Mass] 38 ug/dL 50-170 [facility] Work Phone: Laboratory - Chemistry and C hemistry - challengeon 11-19-2021 ALP [Catalytic activity/Vol] 98 U/L 45-117 [facility] Work Phone: ALT [Catalytic activity/Vol] 27 U/L 13-56 [facility] Work Phone: CO2 [Moles/Vol] 25.0 mmol/L 21.0-32.0 [facility] Work Phone: Free T4 [Mass/Vol] 1.09 ng/dL 0.76-1.46 [facility] Work Phone: Globulin (S) [Mass/Vol] 4.3 g/dL 2.2-4.2 [facility] Work Phone: Urea nitrogen/Creatinine [Mass ratio] 16.1 mg/mg 10-20 [facility] Work Phone: Laboratory - Hematology and Cell countson 11-19-2021 Erythrocyte distribution width (RBC) [Entitic vol] 41.1 fL 35.1-43.9 [facility] Work Phone: Erythrocyte distribution width (RBC) [Ratio] 14.7 % 11.6-14.6 [facility] Work Phone: Immature granulocytes/100 WBC (Bld) 0.400 % 0.0-0.9 [facility] Work Phone: Comment on above: IG% - Immature Granu locytes (promyelocytes, myelocytes and metamyelocytes) > 1% indicates that a LEFT SHIFT is Present. MCH (RBC) [Entitic mass] 25.0 pg 27.0-32.0 [facility] Work Phone: Nucleated RBC/100 WBC (Bld) [Ratio] 0 % 0-5 [facility] Work Phone: MCHC Auto (RBC) [Mass/Vol]on 11-19-2021 MCHC (RBC) [Mass/Vol] 32.1 g/dL 32-[address] [facility] Work Phone: No Panel Informationon 11-19 Anti-Gliadin IgA Antibody 3 units 0-19 [facility] Work Phone: Comment on above: Negative 0 - 19 Weak Positive 20 - 30 Moderate to Strong Positive >30 Anti-Gliadin IgG Antibody 2 units 0-19 [facility] Work Phone: Comment on above: Negative 0 - 19 Weak Positive 20 - 30 Moderate to Strong Positive >30 Endomysial IgA Antibody Negative Negative [facility] Work Phone: Estimated GFR (MDRD) Amer 100 mL/min >60 [facility] Work Phone: Comment on above: GFR Calc Estimated GFR (MDRD) Non-Af Amer 83 mL/min >60 [facility] Work Phone: Comment on above: Non- GFR Calc Free Triiodothyronine (T3) pg/dL 3.2 pg/mL 2.18-3.98 [facility] Work Phone: Thyroid Stimulating Hormone (TSH) 1.96 uIU/mL 0.358-3.74 [facility] Work Phone: Tissue Transglutaminase IgG Ab <2 U/mL 0-5 [facility] Work Phone: Comment on above: Negative 0 - 5 Weak Positive 6 - 9 Positive >9 Total Iron Binding Capacity 358 ug/dL 250-450 [facility] Work Phone: Vitamin D 25-Hydroxy 15.6 ng/mL [facility] Work Phone: Comment on above: Vitamin D 25(OH) Sta tus Range Deficiency <20 ng/mL (50nmol/L) Insufficiency 20 - 30 ng/mL (50 - 75 nmol/L) Sufficiency 30 - 100 ng/mL (75 - 250 nmol/L) Toxicity >100 ng/mL (>250 nmol/L) Platelets bldon 11-19-2021 Platelets (Bld) [#/Vol] 347 10*3/uL 150-450 [facility] Work Phone: Serum IgA measurement (units /volume)on 11-19-2021 IgA Qn (S) 325 mg/dL 87-352 [facility] Work Phone: Comment on above: Performed at: [address] [id number] Director: Charles Daigle PhD, Phone: [phone] Serum or plasma C reactive p rotein measurement (mass/volume)on 11-19-2021 CRP [Mass/Vol] 8.76 mg/L 0.0-3.0 [facility] Work Phone: Comment on above: C-Reactive Protein ( CRP) provides useful information for thediagnosis, therapy and monitoring of inflammatory processesand associated diseases. For the evaluation of Relative Riskfor Cardiovascular Disease, a High Sensitivity CRP (HSCRP)should be ordered. Serum or plasma albumin morales urement (mass/volume)on 11-19-2021 Albumin [Mass/Vol] 3.4 g/dL 3.2-5.0 [facility] Work Phone: Serum or plasma albumin/glob ulin mass ratioon 11-19-2021 Albumin/Globulin [Mass ratio] 0.8 {ratio} 0.9-2.4 [facility] Work Phone: Serum or plasma calcium morales urement (mass/volume)on 11-19-2021 Calcium [Mass/Vol] 9.4 mg/dL 8.5-10.1 [facility] Work Phone: Serum or plasma cholesterol in HDL measurement (mass/volume)on 11-19-2021 Cholesterol in HDL [Mass/Vol] 45 mg/dL >40 [facility] Work Phone: Comment on above: The drugs N-Acetylcy steine and Metamizole may falsely depress this assay. Reference Range HDL <40 mg/dL Low HDL Cholesterol HDL >or= 60 mg/dL High HDL Cholesterol Serum or plasma cholesterol in VLDL measurement (mass/volume)on 11-19-2021 Cholesterol in VLDL [Mass/Vol] 49 mg/dL 5-40 [facility] Work Phone: Serum or plasma creatinine m easurement (mass/volume)on 11-19-2021 Creatinine [Mass/Vol] 0.87 mg/dL 0.55-1.[address] [facility] Work Phone: Comment on above: The validity of the calculated GFR & GFRAA in patients over 70 years has not been determined. Clinical correlation is essential. Serum or plasma ferritin ulisses surement (mass/volume)on 11-19-2021 Ferritin [Mass/Vol] 16 ng/mL 8-252 [facility] Work Phone: Serum or plasma iron saturat ion measurement (mass fraction)on 11-19-2021 Iron saturation [Mass fraction] 10.6 % 15.0-55.0 [facility] Work Phone: Serum or plasma low density lipoprotein (LDL) cholesterol measurement (mass/volume)on 11-19-2021 Cholesterol in LDL [Mass/Vol] 73 mg/dL 0-130 [facility] Work Phone: Serum or plasma urea nitroge n measurement (mass/volume)on 11-19-2021 Urea nitrogen [Mass/Vol] 14 mg/dL 7-18 [facility] Work Phone: Serum tissue transglutaminas e IgA antibody assay (units/volume)on 11-19-2021 tTG IgA Qn (S) <2 U/mL 0-3 [facility] Work Phone: Comment on above: Negative 0 - 3 Weak Positive 4 - 10 Positive >10 Tissue Transglutaminase (tTG) has been identified as the endomysial antigen. Studies have demonstr- ated that endomysial IgA antibodies have over 99% specificity for gluten sensitive enteropathy. Thin prep Papanicolaou smear with manual screeningon 11-19-2021 Thin prep Papanicolaou smear with manual screening 12 U/L 15-37 [facility] Work Phone: Thin prep Papanicolaou smear with manual screening 7 5-15 [facility] Work Phone: Laboratory - Chemistry and C hemistry - challengeon 07-08-2021 HCG ( test) Ql (U) Negative [facility] Work Phone: Comment on above: Very dilute urine sp ecimens, as indicated by a low specificgravity, may not contain ocean import representative levels of hCG. If is still suspected, a first morning urinespecimen should be collected 48 hours later and tested. Laboratory - Microbiology an d Antimicrobial susceptibilityon 07-04-2021 SARS-CoV-2 (COVID-19) RNA DAVE+probe Ql (Unsp spec) Not detected Not Detect [facility] Work Phone: Comment on above: Normal Reference Ran ge: Not DetectedMethod:(RT-PCR) real-time reverse transcriptase PCRLuminex MICHAEL Instrument*The Food and Drug Administration (FDA) has issued an Emergency Use Authorization (EAU) for the datapine SARS-CoV-2 Assay for the rapid detection of the virus that causes COVID-19. This test has been validated, but the [facility] independent review of this validation is pending.*Negative [...] Auto (Unsp spec) [#/Vol] 2.73 10*3/uL 0.83-4.51 [facility] Work Phone: Basophil percentageon 2021 Basophils/100 WBC (Bld) 0.5 % 0-1 [facility] Work Phone: Chloride [Moles/Vol] 103 mmol/L 98-107 [facility] Work Phone: Eosinophils/100 WBC (Bld) 2.6 % 0-5 [facility] Work Phone: Glucose [Mass/Vol] 106 mg/dL 74-106 [facility] Work Phone: [phone] Comment on above: Fasting Glucose resu lt from 100 to 125 mg/dL suggests IMPAIRED HOMEOSTASIS per A.D.A. criteria. Neutrophils (Bld) [#/Vol] 4.1 10*3/uL 2.0-7.7 [facility] Work Phone: Neutrophils/100 WBC (Bld) 52.2 % 47-70 [facility] Work Phone: Potassium [Moles/Vol] 3.9 mmol/L 3.5-5.[address] [facility] Work Phone: [phone] Comment on above: Slight Hemolysis, Re sult may be falsely increased. Sodium [Moles/Vol] 135 mmol/L 136-145 [facility] Work Phone: WBC (Bld) [#/Vol] 7.8 10*3/uL 4.4-11.0 [facility] Work Phone: Blood erythrocytes count (nu mber/volume)on 05-28-2021 RBC (Bld) [#/Vol] 4.66 10*6/uL 4.2-5.4 [facility] Work Phone: [phone] Blood hemoglobin measurement (mass/volume)on 05-28-2021 Hemoglobin (Bld) [Mass/Vol] 13.1 g/dL 12.0-15.0 [facility] Work Phone: Blood lymphocytes/100 leukoc yteson 05-28-2021 Lymphocytes/100 WBC (Bld) 34.9 % 19-41 [facility] Work Phone: Blood monocytes/100 leukocyt eson 05-28-2021 Monocytes/100 WBC (Bld) 9.5 % 0-10 [facility] Work Phone: Blood platelet mean volumeon 05-28-2021 Platelet mean volume (Bld) [Entitic vol] 10.3 fL 6.2-12.0 [facility] Work Phone: [phone] Determination of erythrocyte mean corpuscular volume (MCV)on 05-28-2021 MCV (RBC) [Entitic vol] 81.1 fL 81-99 [facility] Work Phone: [phone] Hematocrit Auto (Bld) [Volum e fraction]on 05-28-2021 Hematocrit (Bld) [Volume fraction] 37.8 % 37-47 [facility] Work Phone: [phone] Laboratory - Chemistry and C hemistry - challengeon 05-28-2021 CO2 [Moles/Vol] 26.0 mmol/L 21.0-32.0 [facility] Work Phone: [phone] Urea nitrogen/Creatinine [Mass ratio] 8.3 mg/mg 10-20 [facility] Work Phone: Laboratory - Hematology and Cell countson 05-28-2021 Erythrocyte distribution width (RBC) [Entitic vol] 39.8 fL 35.1-43.9 [facility] Work Phone: [phone] Erythrocyte distribution width (RBC) [Ratio] 13.6 % 11.6-14.6 [facility] Work Phone: Immature granulocytes/100 WBC (Bld) 0.300 % 0.0-0.9 [facility] Work Phone: Comment on above: IG% - Immature Granu locytes (promyelocytes, myelocytes and metamyelocytes) > 1% indicates that a LEFT SHIFT is Present. MCH (RBC) [Entitic mass] 28.1 pg 27.0-32.0 [facility] Work Phone: Nucleated RBC/100 WBC (Bld) [Ratio] 0 % 0-5 [facility] Work Phone: MCHC Auto (RBC) [Mass/Vol]on 05-28-2021 MCHC (RBC) [Mass/Vol] 34.7 g/dL 32-[address] [facility] Work Phone: No Panel Informationon 05-28 Estimated Creatinine Clearance Calc 84.30 ml/min [facility] Work Phone: Estimated GFR (MDRD) Amer 125 mL/min >60 [facility] Work Phone: Comment on above: GFR Calc Estimated GFR (MDRD) Non-Af Amer 103 mL/min >60 [facility] Work Phone: Comment on above: Non- GFR Calc Platelets bldon 05-28-2021 Platelets (Bld) [#/Vol] 242 10*3/uL 150-450 [facility] Work Phone: Serum or plasma calcium morales urement (mass/volume)on 05-28-2021 Calcium [Mass/Vol] 8.6 mg/dL 8.5-10.1 [facility] Work Phone: Serum or plasma creatinine m easurement (mass/volume)on 05-28-2021 Creatinine [Mass/Vol] 0.72 mg/dL 0.55-1.[address] [facility] Work Phone: Comment on above: The validity of the calculated GFR & GFRAA in patients over 70 years has not been determined. Clinical correlation is essential. Serum or plasma urea nitroge n measurement (mass/volume)on 05-28-2021 Urea nitrogen [Mass/Vol] 6 mg/dL 7-18 [facility] Work Phone: Thin prep Papanicolaou smear with manual screeningon 05-28-2021 Thin prep Papanicolaou smear with manual screening 6 5-15 [facility] Work Phone: Absolute lymphocyte counton 02-06-2021 Lymphocytes Auto (Unsp spec) [#/Vol] 2.80 10*3/uL 0.83-4.51 [facility] Work Phone: Basophil percentageon 2020 Eosinophils/100 WBC (Bld) 5.0 % 0-5 [facility] Work Phone: Neutrophils (Bld) [#/Vol] 4.8 10*3/uL 2.0-7.7 [facility] Work Phone: WBC (Bld) [#/Vol] 8.6 10*3/uL 4.4-11.0 [facility] Work Phone: Blood erythrocytes count (nu mber/volume)on 02-06-2021 RBC (Bld) [#/Vol] 4.83 10*6/uL 4.2-5.4 [facility] Work Phone: Blood hemoglobin measurement (mass/volume)on 02-06-2021 Hemoglobin (Bld) [Mass/Vol] 13.7 g/dL 12.0-15.0 [facility] Work Phone: Blood lymphocytes/100 leukoc yteson 02-06-2021 Lymphocytes/100 WBC (Bld) 32.5 % 19-41 [facility] Work Phone: Blood monocytes/100 leukocyt eson 02-06-2021 Monocytes/100 WBC (Bld) 6.3 % 0-10 [facility] Work Phone: Blood platelet mean volumeon 02-06-2021 Platelet mean volume (Bld) [Entitic vol] 10.3 fL 6.2-12.0 [facility] Work Phone: Determination of erythrocyte mean corpuscular volume (MCV)on 02-06-2021 MCV (RBC) [Entitic vol] 84.5 fL 81-99 [facility] Work Phone: [phone] Hematocrit Auto (Bld) [Volum e fraction]on 02-06-2021 Hematocrit (Bld) [Volume fraction] 40.8 % 37-47 [facility] Work Phone: [phone] Laboratory - Hematology and Cell countson 02-06-2021 Basophils/100 WBC (Unsp spec) 0.3 % 0-1 [facility] Work Phone: [phone] Erythrocyte distribution width (RBC) [Entitic vol] 41.2 fL 35.1-43.9 [facility] Work Phone: [phone] Erythrocyte distribution width (RBC) [Ratio] 13.3 % 11.6-14.6 [facility] Work Phone: [phone] Immature granulocytes/100 WBC (Bld) 0.200 % 0.0-0.9 [facility] Work Phone: Comment on above: IG% - Immature Granu locytes (promyelocytes, myelocytes and metamyelocytes) > 1% indicates that a LEFT SHIFT is Present. MCH (RBC) [Entitic mass] 28.4 pg 27.0-32.0 [facility] Work Phone: [phone] Neutrophils/100 WBC (Bld) 55.7 % 47-70 [facility] Work Phone: [phone] Nucleated RBC/100 WBC (Bld) [Ratio] 0 % 0-5 [facility] Work Phone: Laboratory - Microbiology an d Antimicrobial susceptibilityon 02-06-2021 SARS-CoV-2 (COVID-19) RNA DAVE+probe Ql (Unsp spec) Not detected Not Detect [facility] Work Phone: Comment on above: Normal Reference Ran ge: Not DetectedMethod:(RT-PCR) real-time reverse transcriptase [email or web address] Instrument*The Food and Drug Administration (FDA) has issued an Emergency Use Authorization (EAU) for the datapine SARS-CoV-2 Assay for the rapid detection of [...] 02-06-2021 MCHC (RBC) [Mass/Vol] 33.6 g/dL 32-[address] [facility] Work Phone: Platelets bldon 02-06-2021 Platelets (Bld) [#/Vol] 257 10*3/uL 150-450 [facility] Work Phone: Bacteria identified Cx Nom ( Wound)on 02-04-2021 Wound Culture Corynebacterium amycolatum [facility] Work Phone: Wound Culture Enterococcus faecalis [facility] Work Phone: Wound Culture Escherichia coli [facility] Work Phone: Gram stain for investigation of transfusion reactionon 02-04-2021 Microscopic observation Gram stain Nom (Unsp spec) [facility] Work Phone: Progress Noteon 09-06-2020 [employer] Authentication Interface Message Text 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 Normal [facility] Vital Signs Date Time Vital Sign Value Performing Clinician Lucila au 12-08-2024 15:55-0400 Body temperature 97.6 [degF] Dr. Rhina Kulkarni MD Work Phone: [facility] 12-08-2024 15:55-0400 Diastolic blood pressure 70 mm[Hg] Dr. Rhina Kulkarni MD Work Phone: [facility] 12-08-2024 15:55-0400 Heart rate 88 /min Dr. Rhina Kulkarni MD Work Phone: [facility] 12-08-2024 15:55-0400 Respiratory rate 16 /min Dr. Rhina Kulkarni MD Work Phone: [facility] 12-08-2024 15:55-0400 SaO2% (BldA) [Mass fraction] 98 % Dr. Rhina Kulkarni MD Work Phone: [facility] 12-08-2024 15:55-0400 Systolic blood pressure 119 mm[Hg] Dr. Rhina Kulkarni MD Work Phone: [facility] 12-08-2024 14:28-0400 Body height 152.[address] Rhina Kulkarni MD Work Phone: [facility] 12-08-2024 14:28-0400 Body mass index (BMI) [Ratio] 47.8 kg/m2 Dr. Rhina Kulkarni MD Work Phone: [facility] 12-08-2024 14:28-0400 Body weight 111.[address] Rhina Kulkarni MD Work Phone: [facility] 12-07-2024 10:56-0400 Body height 152.[address] Rhina Kulkarni MD Work Phone: [facility] 12-07-2024 10:56-0400 Body mass index (BMI) [Ratio] 47.9 kg/m2 Dr. Rhina Kulkarni MD Work Phone: [facility] 12-07-2024 10:56-0400 Body weight 111.[address] Rhina Kulkarni MD Work Phone: [facility] 12-07-2024 10:56-0400 Diastolic blood pressure 82 mm[Hg] Dr. Rhina Kulkarni MD Work Phone: [facility] 12-07-2024 10:56-0400 Systolic blood pressure 123 mm[Hg] Dr. Rhina Kulkarni MD Work Phone: [facility] 11-29-2024 10:20-0400 Body height 152.[address] Rhina Kulkarni MD Work Phone: [facility] 11-29-2024 10:20-0400 Body mass index (BMI) [Ratio] 47.9 kg/m2 Dr. Rhina Kulkarni MD Work Phone: [facility] 11-29-2024 10:20-0400 Body weight 111.[address] Rhina Kulkarni MD Work Phone: [facility] 11-29-2024 10:20-0400 Diastolic blood pressure 79 mm[Hg] Dr. Rhina Kulkarni MD Work Phone: [facility] 11-29-2024 10:20-0400 Systolic blood pressure 122 mm[Hg] Dr. Rhina Kulkarni MD Work Phone: [facility] 11-27-2024 01:50-0400 Body temperature 97.9 [degF] Dr. Rhina Kulkarni MD Work Phone: [facility] 11-27-2024 01:50-0400 Diastolic blood pressure 74 mm[Hg] Dr. Rhina Kulkarni MD Work Phone: [facility] 11-27-2024 01:50-0400 Heart rate 99 /min Dr. Rhina Kulkarni MD Work Phone: [facility] 11-27-2024 01:50-0400 Respiratory rate 16 /min Dr. Rhina Kulkarni MD Work Phone: [facility] 11-27-2024 01:50-0400 SaO2% (BldA) [Mass fraction] 98 % Dr. Rhina Kulkarni MD Work Phone: [facility] 11-27-2024 01:50-0400 Systolic blood pressure 123 mm[Hg] Dr. Rhina Kulkarni MD Work Phone: [facility] 11-26-2024 22:09-0400 Body mass index (BMI) [Ratio] 48.9 kg/m2 Dr. Rhina Kulkarni MD Work Phone: [facility] 11-26-2024 22:09-0400 Body weight 113.[address] Rhina Kulkarni MD Work Phone: [facility] 10-05-2024 08:33-0400 Body temperature 97.7 [degF] Dr. Rhina Kulkarni MD Work Phone: [facility] 10-05-2024 08:33-0400 Diastolic blood pressure 70 mm[Hg] Dr. Rhina Kulkarni MD Work Phone: [facility] 10-05-2024 08:33-0400 Heart rate 81 /min Dr. Rhina Kulkarni MD Work Phone: [facility] 10-05-2024 08:33-0400 Respiratory rate 15 /min Dr. Rhina Kulkarni MD Work Phone: [facility] 10-05-2024 08:33-0400 SaO2% (BldA) [Mass fraction] 98 % Dr. Rhina Kulkarni MD Work Phone: [facility] 10-05-2024 08:33-0400 Systolic blood pressure 114 mm[Hg] Dr. Rhina Kulkarni MD Work Phone: [facility] 08-24-2024 11:13-0400 Body height 152.[address] Rhina Kulkarni MD Work Phone: [facility] 08-24-2024 11:13-0400 Body mass index (BMI) [Ratio] 46.9 kg/m2 Dr. Rhina Kulkarni MD Work Phone: [facility] 08-24-2024 11:13-0400 Body weight 109.[address] Rhina Kulkarni MD Work Phone: [facility] 08-24-2024 11:13-0400 Diastolic blood pressure 82 mm[Hg] Dr. Rhina Kulkarni MD Work Phone: [facility] 08-24-2024 11:13-0400 Systolic blood pressure 122 mm[Hg] Dr. Rhina Kulkarni MD Work Phone: [facility] 05-28-2023 13:39-0400 Body height 157.48 cm [employer] Tonny Costa [employer]ER Work Phone: [facility] 05-28-2023 13:39-0400 Body mass index (BMI) [Ratio] 40.8 kg/m2 [employer] Tonny Costa [employer] OPERATIONS ENGINEER Work Phone: [facility] 05-28-2023 13:39-0400 Body temperature 98.1 [degF] BROADCAST OPERATIONS ENGINEER-C Tonny Costa BROADCAST OPERATIONS ENGINEER Work Phone: [facility] 05-28-2023 13:39-0400 Body weight 101.15 kg BROADCAST OPERATIONS ENGINEER-C Tonny Costa BROADCAST OPERATIONS ENGINEER Work Phone: [facility] 05-28-2023 13:39-0400 Diastolic blood pressure 80 mm[Hg] BROADCAST OPERATIONS ENGINEER-C Tonny Costa BROADCAST OPERATIONS ENGINEER Work Phone: [facility] 05-28-2023 13:39-0400 Heart rate 62 /min BROADCAST OPERATIONS ENGINEER-C Tonny Costa BROADCAST OPERATIONS ENGINEER Work Phone: [facility] 05-28-2023 13:39-0400 Respiratory rate 18 /min BROADCAST OPERATIONS ENGINEER-C Tonny Costa BROADCAST OPERATIONS ENGINEER Work Phone: [facility] 05-28-2023 13:39-0400 SaO2% (BldA) [Mass fraction] 99 % BROADCAST OPERATIONS ENGINEER-C Tonny Costa BROADCAST OPERATIONS ENGINEER Work Phone: [facility] 05-28-2023 13:39-0400 Systolic blood pressure 116 mm[Hg] BROADCAST OPERATIONS ENGINEER-C Tonny Costa BROADCAST OPERATIONS ENGINEER Work Phone: [facility] 05-22-2023 12:44-0400 Body temperature 97.8 [degF] BROADCAST OPERATIONS ENGINEER-C Tonny Costa BROADCAST OPERATIONS ENGINEER Work Phone: [facility] 05-22-2023 12:44-0400 Diastolic blood pressure 72 mm[Hg] BROADCAST OPERATIONS ENGINEER-C Tonny Costa BROADCAST OPERATIONS ENGINEER Work Phone: [facility] 05-22-2023 12:44-0400 Heart rate 103 /min BROADCAST OPERATIONS ENGINEER-C Tonny Costa BROADCAST OPERATIONS ENGINEER Work Phone: [facility] 05-22-2023 12:44-0400 Respiratory rate 16 /min BROADCAST OPERATIONS ENGINEER-C Tonny Costa BROADCAST OPERATIONS ENGINEER Work Phone: [facility] 05-22-2023 12:44-0400 SaO2% (BldA) [Mass fraction] 100 % BROADCAST OPERATIONS ENGINEER-C Tonny Costa BROADCAST OPERATIONS ENGINEER Work Phone: [facility] 05-22-2023 12:44-0400 Systolic blood pressure 128 mm[Hg] BROADCAST OPERATIONS ENGINEER-C Tonny Costa BROADCAST OPERATIONS ENGINEER Work Phone: [facility] 04-07-2023 11:34-0500 Body height 157.48 cm BROADCAST OPERATIONS ENGINEER-C Tonny Costa BROADCAST OPERATIONS ENGINEER Work Phone: [facility] 04-07-2023 11:34-0500 Body mass index (BMI) [Ratio] 41.8 kg/m2 BROADCAST OPERATIONS ENGINEER-C Tonny Costa BROADCAST OPERATIONS ENGINEER Work Phone: [facility] 04-07-2023 11:34-0500 Body temperature 97.7 [degF] BROADCAST OPERATIONS ENGINEER-C Tonny Costa BROADCAST OPERATIONS ENGINEER Work Phone: [facility] 04-07-2023 11:34-0500 Body weight 103.64 kg BROADCAST OPERATIONS ENGINEER-C Tonny Costa BROADCAST OPERATIONS ENGINEER Work Phone: [facility] 04-07-2023 11:34-0500 Diastolic blood pressure 82 mm[Hg] BROADCAST OPERATIONS ENGINEER-C Tonny Costa BROADCAST OPERATIONS ENGINEER Work Phone: [facility] 04-07-2023 11:34-0500 Heart rate 89 /min BROADCAST OPERATIONS ENGINEER-C Tonny Costa BROADCAST OPERATIONS ENGINEER Work Phone: [facility] 04-07-2023 11:34-0500 Respiratory rate 16 /min BROADCAST OPERATIONS ENGINEER-C Tonny Costa BROADCAST OPERATIONS ENGINEER Work Phone: [facility] 04-07-2023 11:34-0500 SaO2% (BldA) [Mass fraction] 99 % BROADCAST OPERATIONS ENGINEER-C Tonny Costa BROADCAST OPERATIONS ENGINEER Work Phone: [facility] 04-07-2023 11:34-0500 Systolic blood pressure 122 mm[Hg] BROADCAST OPERATIONS ENGINEER-C Tonny Costa BROADCAST OPERATIONS ENGINEER Work Phone: [facility] 03-31-2023 15:04-0500 Body temperature 98.2 [degF] BROADCAST OPERATIONS ENGINEER-C Tonny Costa BROADCAST OPERATIONS ENGINEER Work Phone: [facility] 03-31-2023 15:04-0500 Diastolic blood pressure 79 mm[Hg] BROADCAST OPERATIONS ENGINEER-C Tonny Costa BROADCAST OPERATIONS ENGINEER Work Phone: [facility] 03-31-2023 15:04-0500 Heart rate 77 /min BROADCAST OPERATIONS ENGINEER-C Tonny Costa BROADCAST OPERATIONS ENGINEER Work Phone: [facility] 03-31-2023 15:04-0500 Respiratory rate 16 /min BROADCAST OPERATIONS ENGINEER-C Tonny Costa BROADCAST OPERATIONS ENGINEER Work Phone: [facility] 03-31-2023 15:04-0500 SaO2% (BldA) [Mass fraction] 100 % BROADCAST OPERATIONS ENGINEER-C Tonny Costa BROADCAST OPERATIONS ENGINEER Work Phone: [facility] 03-31-2023 15:04-0500 Systolic blood pressure 135 mm[Hg] BROADCAST OPERATIONS ENGINEER-C Tonny Costa BROADCAST OPERATIONS ENGINEER Work Phone: [facility] 03-31-2023 13:18-0500 Body height 157.48 cm BROADCAST OPERATIONS ENGINEER-C Tonny Costa BROADCAST OPERATIONS ENGINEER Work Phone: [facility] 03-31-2023 13:18-0500 Body mass index (BMI) [Ratio] 41.7 kg/m2 BROADCAST OPERATIONS ENGINEER-C Tonny Costa BROADCAST OPERATIONS ENGINEER Work Phone: [facility] 03-31-2023 13:18-0500 Body weight 103.41 kg BROADCAST OPERATIONS ENGINEER-C Tonny Costa BROADCAST OPERATIONS ENGINEER Work Phone: [facility] 03-18-2023 11:02-0500 Body height 157.48 cm BROADCAST OPERATIONS ENGINEER-C Tonny Costa BROADCAST OPERATIONS ENGINEER Work Phone: [facility] 03-18-2023 11:02-0500 Body mass index (BMI) [Ratio] 42 kg/m2 BROADCAST OPERATIONS ENGINEER-C Tonny Costa BROADCAST OPERATIONS ENGINEER Work Phone: [facility] 03-18-2023 11:02-0500 Body temperature 97.7 [degF] BROADCAST OPERATIONS ENGINEER-C Tonny Costa BROADCAST OPERATIONS ENGINEER Work Phone: [facility] 03-18-2023 11:02-0500 Body weight 104.32 kg BROADCAST OPERATIONS ENGINEER-C Tonny Costa BROADCAST OPERATIONS ENGINEER Work Phone: [facility] 03-18-2023 11:02-0500 Diastolic blood pressure 80 mm[Hg] BROADCAST OPERATIONS ENGINEER-C Tonny Costa BROADCAST OPERATIONS ENGINEER Work Phone: [facility] 03-18-2023 11:02-0500 Heart rate 102 /min BROADCAST OPERATIONS ENGINEER-C Tonny Costa BROADCAST OPERATIONS ENGINEER Work Phone: [facility] 03-18-2023 11:02-0500 Respiratory rate 16 /min BROADCAST OPERATIONS ENGINEER-C Tonny Costa BROADCAST OPERATIONS ENGINEER Work Phone: [facility] 03-18-2023 11:02-0500 SaO2% (BldA) [Mass fraction] 98 % BROADCAST OPERATIONS ENGINEER-C Tonny Costa BROADCAST OPERATIONS ENGINEER Work Phone: [facility] 03-18-2023 11:02-0500 Systolic blood pressure 120 mm[Hg] BROADCAST OPERATIONS ENGINEER-C Tonny Costa BROADCAST OPERATIONS ENGINEER Work Phone: [facility] 01-13-2023 10:06-0500 Body height 157.48 cm BROADCAST OPERATIONS ENGINEER-C Tonny Costa BROADCAST OPERATIONS ENGINEER Work Phone: [facility] 01-13-2023 10:06-0500 Body mass index (BMI) [Ratio] 41.8 kg/m2 BROADCAST OPERATIONS ENGINEER-C Tonny Costa BROADCAST OPERATIONS ENGINEER Work Phone: [facility] 01-13-2023 10:06-0500 Body temperature 97.9 [degF] BROADCAST OPERATIONS ENGINEER-C Tonny Costa BROADCAST OPERATIONS ENGINEER Work Phone: [facility] 01-13-2023 10:06-0500 Body weight 103.87 kg BROADCAST OPERATIONS ENGINEER-C Tonny Costa BROADCAST OPERATIONS ENGINEER Work Phone: [facility] 01-13-2023 10:06-0500 Diastolic blood pressure 68 mm[Hg] BROADCAST OPERATIONS ENGINEER-C Tonny Costa BROADCAST OPERATIONS ENGINEER Work Phone: [facility] 01-13-2023 10:06-0500 Heart rate 80 /min BROADCAST OPERATIONS ENGINEER-C Tonny Costa BROADCAST OPERATIONS ENGINEER Work Phone: [facility] 01-13-2023 10:06-0500 Respiratory rate 18 /min BROADCAST OPERATIONS ENGINEER-C Tonny Costa BROADCAST OPERATIONS ENGINEER Work Phone: [facility] 01-13-2023 10:06-0500 SaO2% (BldA) [Mass fraction] 99 % BROADCAST OPERATIONS ENGINEER-C Tonny Costa BROADCAST OPERATIONS ENGINEER Work Phone: [facility] 01-13-2023 10:06-0500 Systolic blood pressure 112 mm[Hg] BROADCAST OPERATIONS ENGINEER-C Tonny Costa BROADCAST OPERATIONS ENGINEER Work Phone: [facility] 11-06-2022 13:46-0400 Body temperature 98.9 [degF] BROADCAST OPERATIONS ENGINEER-C Tonny Costa BROADCAST OPERATIONS ENGINEER Work Phone: [facility] 11-06-2022 13:46-0400 Diastolic blood pressure 78 mm[Hg] BROADCAST OPERATIONS ENGINEER-C Tonny Costa BROADCAST OPERATIONS ENGINEER Work Phone: [facility] 11-06-2022 13:46-0400 Heart rate 95 /min BROADCAST OPERATIONS ENGINEER-C Tonny Costa BROADCAST OPERATIONS ENGINEER Work Phone: [facility] 11-06-2022 13:46-0400 Respiratory rate 14 /min BROADCAST OPERATIONS ENGINEER-C Tonny Costa BROADCAST OPERATIONS ENGINEER Work Phone: [facility] 11-06-2022 13:46-0400 SaO2% (BldA) [Mass fraction] 99 % BROADCAST OPERATIONS ENGINEER-C Tonny Costa BROADCAST OPERATIONS ENGINEER Work Phone: [facility] 11-06-2022 13:46-0400 Systolic blood pressure 110 mm[Hg] BROADCAST OPERATIONS ENGINEER-C Tonny Costa BROADCAST OPERATIONS ENGINEER Work Phone: [facility] 12-18-2021 07:59-0400 Body height 152.4 cm No Primary Care Physician [facility] Work Phone: 12-18-2021 07:59-0400 Body mass index (BMI) [Ratio] 49 kg/m2 No Primary Care Physician [facility] Work Phone: 12-18-2021 07:59-0400 Body temperature 98.2 [degF] No Primary Care Physician [facility] Work Phone: 12-18-2021 07:59-0400 Body weight 113.96 kg No Primary Care Physician [facility] Work Phone: 12-18-2021 07:59-0400 Diastolic blood pressure 78 mm[Hg] No Primary Care Physician [facility] Work Phone: 12-18-2021 07:59-0400 Heart rate 90 /min No Primary Care Physician [facility] Work Phone: 12-18-2021 07:59-0400 Respiratory rate 16 /min No Primary Care Physician [facility] Work Phone: 12-18-2021 07:59-0400 SaO2% (BldA) [Mass fraction] 97 % No Primary Care Physician [facility] Work Phone: 12-18-2021 07:59-0400 Systolic blood pressure 112 mm[Hg] No Primary Care Physician [facility] Work Phone: 12-11-2021 14:41-0400 Body mass index (BMI) [Ratio] 48.8 kg/m2 No Primary Care Physician [facility] Work Phone: 12-11-2021 14:41-0400 Body temperature 98.5 [degF] No Primary Care Physician [facility] Work Phone: 12-11-2021 14:41-0400 Body weight 113.39 kg No Primary Care Physician [facility] Work Phone: 12-11-2021 14:41-0400 Diastolic blood pressure 82 mm[Hg] No Primary Care Physician [facility] Work Phone: 12-11-2021 14:41-0400 Heart rate 88 /min No Primary Care Physician [facility] Work Phone: 12-11-2021 14:41-0400 Respiratory rate 14 /min No Primary Care Physician [facility] Work Phone: 12-11-2021 14:41-0400 SaO2% (BldA) [Mass fraction] 99 % No Primary Care Physician [facility] Work Phone: 12-11-2021 14:41-0400 Systolic blood pressure 114 mm[Hg] No Primary Care Physician [facility] Work Phone: 11-22-2021 10:24-0400 Body height 152.4 cm No Primary Care Physician [facility] Work Phone: 11-22-2021 10:24-0400 Body mass index (BMI) [Ratio] 47.7 kg/m2 No Primary Care Physician [facility] Work Phone: 11-22-2021 10:24-0400 Body temperature 97.1 [degF] No Primary Care Physician [facility] Work Phone: 11-22-2021 10:24-0400 Body weight 110.9 kg No Primary Care Physician [facility] Work Phone: 11-22-2021 10:24-0400 Diastolic blood pressure 72 mm[Hg] No Primary Care Physician [facility] Work Phone: 11-22-2021 10:24-0400 Heart rate 104 /min No Primary Care Physician [facility] Work Phone: 11-22-2021 10:24-0400 Respiratory rate 16 /min No Primary Care Physician [facility] Work Phone: 11-22-2021 10:24-0400 SaO2% (BldA) [Mass fraction] 99 % No Primary Care Physician [facility] Work Phone: 11-22-2021 10:24-0400 Systolic blood pressure 120 mm[Hg] No Primary Care Physician [facility] Work Phone: 11-19-2021 14:33-0400 Body mass index (BMI) [Ratio] 47.8 kg/m2 No Primary Care Physician [facility] Work Phone: 11-19-2021 14:33-0400 Body temperature 98.2 [degF] No Primary Care Physician [facility] Work Phone: 11-19-2021 14:33-0400 Body weight 111.13 kg No Primary Care Physician [facility] Work Phone: 11-19-2021 14:33-0400 Diastolic blood pressure 86 mm[Hg] No Primary Care Physician [facility] Work Phone: 11-19-2021 14:33-0400 Heart rate 94 /min No Primary Care Physician [facility] Work Phone: 11-19-2021 14:33-0400 Respiratory rate 14 /min No Primary Care Physician [facility] Work Phone: 11-19-2021 14:33-0400 SaO2% (BldA) [Mass fraction] 98 % No Primary Care Physician [facility] Work Phone: 11-19-2021 14:33-0400 Systolic blood pressure 122 mm[Hg] No Primary Care Physician [facility] Work Phone: 11-15-2021 19:55-0400 Heart rate 126 /min No Primary Care Physician [facility] Work Phone: 11-15-2021 19:55-0400 Respiratory rate 25 /min No Primary Care Physician [facility] Work Phone: 11-15-2021 19:44-0400 Body temperature 97 [degF] No Primary Care Physician [facility] Work Phone: 11-15-2021 19:44-0400 Diastolic blood pressure 93 mm[Hg] No Primary Care Physician [facility] Work Phone: 11-15-2021 19:44-0400 SaO2% (BldA) [Mass fraction] 98 % No Primary Care Physician [facility] Work Phone: 11-15-2021 19:44-0400 Systolic blood pressure 141 mm[Hg] No Primary Care Physician [facility] Work Phone: 11-15-2021 19:41-0400 Body mass index (BMI) [Ratio] 48.8 kg/m2 No Primary Care Physician [facility] Work Phone: 11-15-2021 19:41-0400 Body weight 113.39 kg No Primary Care Physician [facility] Work Phone: 07-08-2021 10:30-0400 Body temperature 98.3 [degF] No Primary Care Physician [facility] Work Phone: 07-08-2021 10:30-0400 Diastolic blood pressure 77 mm[Hg] No Primary Care Physician [facility] Work Phone: 07-08-2021 10:30-0400 Heart rate 90 /min No Primary Care Physician [facility] Work Phone: 07-08-2021 10:30-0400 Respiratory rate 16 /min No Primary Care Physician [facility] Work Phone: 07-08-2021 10:30-0400 SaO2% (BldA) [Mass fraction] 100 % No Primary Care Physician [facility] Work Phone: 07-08-2021 10:30-0400 Systolic blood pressure 131 mm[Hg] No Primary Care Physician [facility] Work Phone: 07-08-2021 07:45-0400 Body height 152.4 cm No Primary Care Physician [facility] Work Phone: 07-08-2021 07:45-0400 Body mass index (BMI) [Ratio] 49.7 kg/m2 No Primary Care Physician [facility] Work Phone: 07-08-2021 07:45-0400 Body weight 115.6 kg No Primary Care Physician [facility] Work Phone: 06-17-2021 14:59-0400 Body height 152.4 cm No Primary Care Physician [facility] Work Phone: 06-17-2021 14:59-0400 Body mass index (BMI) [Ratio] 50.3 kg/m2 No Primary Care Physician [facility] Work Phone: 06-17-2021 14:59-0400 Body temperature 98.1 [degF] No Primary Care Physician [facility] Work Phone: 06-17-2021 14:59-0400 Body weight 117.02 kg No Primary Care Physician [facility] Work Phone: 06-17-2021 14:59-0400 Diastolic blood pressure 78 mm[Hg] No Primary Care Physician [facility] Work Phone: 06-17-2021 14:59-0400 Heart rate 100 /min No Primary Care Physician [facility] Work Phone: 06-17-2021 14:59-0400 Respiratory rate 20 /min No Primary Care Physician [facility] Work Phone: 06-17-2021 14:59-0400 SaO2% (BldA) [Mass fraction] 99 % No Primary Care Physician [facility] Work Phone: 06-17-2021 14:59-0400 Systolic blood pressure 122 mm[Hg] No Primary Care Physician [facility] Work Phone: 05-28-2021 06:22-0400 Diastolic blood pressure 60 mm[Hg] No Primary Care Physician [facility] Work Phone: 05-28-2021 06:22-0400 Heart rate 96 /min No Primary Care Physician [facility] Work Phone: 05-28-2021 06:22-0400 Respiratory rate 18 /min No Primary Care Physician [facility] Work Phone: 05-28-2021 06:22-0400 SaO2% (BldA) [Mass fraction] 97 % No Primary Care Physician [facility] Work Phone: 05-28-2021 06:22-0400 Systolic blood pressure 138 mm[Hg] No Primary Care Physician [facility] Work Phone: 05-28-2021 05:13-0400 Body temperature 96.1 [degF] No Primary Care Physician [facility] Work Phone: 05-28-2021 05:11-0400 Body height 152.4 cm No Primary Care Physician [facility] Work Phone: 05-28-2021 05:11-0400 Body mass index (BMI) [Ratio] 52.4 kg/m2 No Primary Care Physician [facility] Work Phone: 05-28-2021 05:11-0400 Body weight 121.8 kg No Primary Care Physician [facility] Work Phone: 02-21-2021 10:43-0500 Body mass index (BMI) [Ratio] 48.4 kg/m2 No Primary Care Physician [facility] Work Phone: 02-21-2021 10:43-0500 Body weight 112.54 kg No Primary Care Physician [facility] Work Phone: 02-21-2021 10:43-0500 Diastolic blood pressure 86 mm[Hg] No Primary Care Physician [facility] Work Phone: 02-21-2021 10:43-0500 Systolic blood pressure 120 mm[Hg] No Primary Care Physician [facility] Work Phone: 02-06-2021 11:06-0500 Diastolic blood pressure 80 mm[Hg] No Primary Care Physician [facility] Work Phone: 02-06-2021 11:06-0500 Systolic blood pressure 100 mm[Hg] No Primary Care Physician [facility] Work Phone: 02-04-2021 14:15-0500 Body mass index (BMI) [Ratio] 48 kg/m2 No Primary Care Physician [facility] Work Phone: 02-04-2021 14:15-0500 Body weight 111.58 kg No Primary Care Physician [facility] Work Phone: 02-04-2021 14:15-0500 Diastolic blood pressure 90 mm[Hg] No Primary Care Physician [facility] Work Phone: 02-04-2021 14:15-0500 Systolic blood pressure 134 mm[Hg] No Primary Care Physician [facility] Work Phone: Encounters Encounter Date Encounter Type Care Provider Facility Start: 02-21-2025 ambulatory Rhina Kulkarni Facility :[facility] Start: 01-05-2025 End: 01-05-2025 ambulatory Rhina Kulkarni Facility:[facility] Start: 12-16-2024 End: 12-16-2024 ambulatory Josseline Celeste Facility:[facility] Start: 12-08-2024 End: 12-08-2024 Patient encounter procedure [...] Patient encounter procedure Dr. Josseline Celeste DO -[facility] Work Phone: Start: 12-07-2024 End: 12-07-[address] Rhina Kulkarni MD Work Phone: -[facility] Start: 12-07-2024 End: 12-07-2024 ambulatory Rhina Kulkarni Facility:[facility] Start: 11-29-2024 End: 11-29-2024 Patient encounter procedure Yoon Wilkins CNM -[facility] Work Phone: Start: 11-29-2024 End: 11-29-[address] Rhina Kulkarni MD Work Phone: -[facility] Start: 11-26-2024 End: 11-27-2024 Emergency department patient visit Mariuszyanelis Mueller -Emergency Department Work Phone: Start: 11-25-2024 Non-patient / Non-visit Kimberly Werner RN -[facility] Work Phone: Start: 11-25-2024 ambulatory Rhina Kulkarni Facility :[facility] Start: 11-16-2024 End: 11-16-[address] Rhina Kulkarni MD Work Phone: -Ultrasound [facility] Start: 11-16-2024 End: 11-16-2024 Patient encounter procedure oYon Wilkins CNM -Ultrasound [facility] Work Phone: Start: 11-16-2024 End: 11-16-2024 ambulatory Rhina Kulkarni Facility:[facility] Start: 11-02-2024 End: 11-02-[address] Rhina Kulkarni MD Work Phone: [facility] Start: 11-02-2024 End: 11-02-[address] Cheryle Meza MD -[facility] Start: 11-02-2024 End: 11-02-2024 ambulatory Rhina Kulkarni Facility:[facility] Start: 10-31-2024 End: 10-31-[address] Rhina Kulkarni MD Work Phone: -[facility] Start: 10-31-2024 End: 10-31-[address] Cheryle Meza MD -[facility] Start: 10-31-2024 End: 10-31-2024 ambulatory Rhina Kulkarni Facility:[facility] Start: 10-05-2024 End: 10-05-2024 Patient encounter procedure Fabrizio Rubi BROADCAST OPERATIONS ENGINEER-C -[facility] Work Phone: Start: 10-05-2024 End: 10-05-[address] Rhina Kulkarni MD Work Phone: -[facility] Start: 08-30-2024 End: 08-30-[address] Rhina Kulkarni MD Work Phone: -Ultrasound [facility] Start: 08-30-2024 End: 08-30-[address] Cheryle Meza MD -Ultrasound [facility] Work Phone: Start: 08-30-2024 End: 08-30-2024 ambulatory Rhinatracee Hollowaylay Facility:[facility] Start: 08-24-2024 End: 08-24-[address] Cheryle Meza MD -[facility] Work Phone: Start: 08-24-2024 End: 08-24-[address] Rhina Kulkarni MD Work Phone: [facility] Work Phone: Start: 08-24-2024 End: 08-24-2024 ambulatory Rhinamanuel Hollowaylay Facility:[facility] Start: 08-22-2024 End: 08-22-[address] Rhina Kulkarni MD Work Phone: [facility] Work Phone: Start: 08-22-2024 End: 08-22-[address] Josseline Celeste DO -Lab [facility] Start: 08-22-2024 End: 08-22-2024 ambulatory Rhina Drummond Facility:[facility] Start: 03-20-2024 End: 03-20-2024 ambulatory Rhina Cayla Facility:[facility] Start: 06-02-2023 End: 06-02-2023 ambulatory BROADCAST OPERATIONS ENGINEER-C Tonny Costa NP Work Phone: [facility] Work Phone: Start: 06-02-2023 End: 06-02-2023 Discharged Recurring BROADCAST OPERATIONS ENGINEER-C Tonny Barrientosder BROADCAST OPERATIONS ENGINEER Work Phone: [facility] Work Phone: Start: 05-28-2023 End: 05-28-2023 Patient encounter procedure BROADCAST OPERATIONS ENGINEER-C Tonny Barrientosder BROADCAST OPERATIONS ENGINEER Work Phone: [facility] Internal Medicine Work Phone: Start: 05-22-2023 End: 05-22-2023 Patient encounter procedure BROADCAST OPERATIONS ENGINEER-C Tonny Costa BROADCAST OPERATIONS ENGINEER Work Phone: [facility] Work Phone: Start: 04-20-2023 Registered Recurring BROADCAST OPERATIONS ENGINEER-C Tonny Barrientosder BROADCAST OPERATIONS ENGINEER Work Phone: [facility] Work Phone: Start: 04-16-2023 End: 04-16-2023 ambulatory BROADCAST OPERATIONS ENGINEER-C Tonny Costa BROADCAST OPERATIONS ENGINEER Work Phone: [facility] Work Phone: Start: 04-16-2023 End: 04-16-2023 Patient encounter procedure BROADCAST OPERATIONS ENGINEER-C Tonny Barrientosder BROADCAST OPERATIONS ENGINEER Work Phone: [facility] Work Phone: Start: 04-07-2023 End: 04-07-2023 Patient encounter procedure BROADCAST OPERATIONS ENGINEER-C Tonny Costa BROADCAST OPERATIONS ENGINEER Work Phone: [facility] Radiology Start: 04-07-2023 End: 04-07-2023 Patient encounter procedure BROADCAST OPERATIONS ENGINEER-C Tonny Costa BROADCAST OPERATIONS ENGINEER Work Phone: [facility] Internal [facility] Work Phone: Start: 03-31-2023 End: 03-31-2023 ambulatory BROADCAST OPERATIONS ENGINEER-C Tonny Costa BROADCAST OPERATIONS ENGINEER Work Phone: [facility] Work Phone: Start: 03-31-2023 End: 03-31-2023 Patient encounter procedure BROADCAST OPERATIONS ENGINEER-C Tonny Costa BROADCAST OPERATIONS ENGINEER Work Phone: [facility] Work Phone: Start: 03-18-2023 End: 03-18-2023 ambulatory BROADCAST OPERATIONS ENGINEER-C Tonny Costa BROADCAST OPERATIONS ENGINEER Work Phone: [facility] Work Phone: Start: 03-18-2023 End: 03-18-2023 Patient encounter procedure BROADCAST OPERATIONS ENGINEER-C Tonny Costa BROADCAST OPERATIONS ENGINEER Work Phone: [facility] [facility] Work Phone: Start: 01-22-2023 End: 01-22-2023 ambulatory BROADCAST OPERATIONS ENGINEER-C Tonny Costa BROADCAST OPERATIONS ENGINEER Work Phone: [facility] Work Phone: Start: 01-22-2023 End: 01-22-2023 Patient encounter procedure BROADCAST OPERATIONS ENGINEER-C Tonny Costa BROADCAST OPERATIONS ENGINEER Work Phone: [facility]-Laboratory, BIM Start: 01-13-2023 End: 01-13-2023 Patient encounter procedure BROADCAST OPERATIONS ENGINEER-C Tonny Costa BROADCAST OPERATIONS ENGINEER Work Phone: [facility] Internal Medicine Work Phone: Start: 11-06-2022 End: 11-06-2022 Patient encounter procedure BROADCAST OPERATIONS ENGINEER-C Tonny Costa BROADCAST OPERATIONS ENGINEER Work Phone: [facility] Work Phone: Start: 01-14-2022 End: 01-14-2022 ambulatory No Primary Care Physician [facility] Work Phone: Start: 01-14-2022 End: 01-14-2022 Patient encounter procedure No Primary Care Physician [facility]Laboratory, [facility] Start: 12-18-2021 End: 12-18-2021 Patient encounter procedure No Primary Care Physician [facility]-Pulmonary Medicine [facility] Start: 12-11-2021 End: 12-11-2021 Patient encounter procedure No Primary Care Physician [facility] Internal Medicine Start: 11-22-2021 End: 11-22-2021 ambulatory No Primary Care Physician [facility] Work Phone: Start: 11-22-2021 End: 11-22-2021 Patient encounter procedure No Primary Care Physician [facility] Start: 11-22-2021 End: 11-22-2021 Patient encounter procedure No Primary Care Physician [facility] Internal Medicine Start: 11-19-2021 End: 11-19-2021 ambulatory No Primary Care Physician [facility] Work Phone: Start: 11-19-2021 End: 11-19-2021 Patient encounter procedure No Primary Care Physician [facility] Internal Medicine Start: 11-15-2021 End: 11-15-2021 Emergency department patient visit No Primary Care Physician [facility]-Emergency Department Start: 07-08-2021 End: 07-08-2021 Admission to same day surgery center No Primary Care Physician [facility]-Surgical Day Care Start: 07-04-2021 End: 07-04-2021 Patient encounter procedure No Primary Care Physician [facility]-Laboratory, Specimen Start: 06-17-2021 End: 06-17-2021 Patient encounter procedure No Primary Care Physician [facility] Internal Medicine Start: 06-13-2021 End: 06-13-2021 Patient encounter procedure No Primary Care Physician [facility]-Laboratory, Specimen Start: 05-28-2021 End: 05-28-2021 Emergency department patient visit No Primary Care Physician [facility]-Emergency Department Start: 02-21-2021 End: 02-21-2021 Patient encounter procedure No Primary Care Physician [facility] Start: 02-06-2021 End: 02-06-2021 Patient encounter procedure No Primary Care Physician [facility] Start: 02-04-2021 End: 02-04-2021 Patient encounter procedure No Primary Care Physician [facility]-Laboratory, Specimen Start: 02-04-2021 End: 02-04-2021 Patient encounter procedure No Primary Care Physician [facility] Procedures Date Procedure Procedure Detail Performing Clinician [...] >20 - 80 High Positive: >80Performed at: [facility] [address] [id number] Director: Blue Araya MD, Phone: [phone] at: [facility] [employer] [id number] Director: Charles Daigle PhD, Phone: [phone] Start: 08-22-2024 Total iron binding capacity measurement Dr. Rhina Kulkarni MD Work Phone: Start: 04-16-2023 CT of head without contrast BROADCAST OPERATIONS ENGINEER-C Tonny Costa BROADCAST OPERATIONS ENGINEER Work Phone: Start: 04-07-2023 X-ray of cervical spine BROADCAST OPERATIONS ENGINEER-C Tonny Costa BROADCAST OPERATIONS ENGINEER Work Phone: Start: 11-22-2021 Plain chest X-ray No Pr [facility] Care Physician Start: 07-08-2021 Myringotomy,Tubes (Bilateral) No [...] identified in Urine by Culture Urine Culture [facility] Start: 12-07-2024 Chlamydia deoxyribonucleic acid detection [facility] Start: 12-07-2024 [facility] Start: 11-29-2024 End: 11-29-2024 Patient encounter procedure Threatened miscarriage [facility] Work Phone: Start: 11-27-2024 [facility] Start: 11-25-2024 Chlamydia deoxyribonucleic acid detection [facility] Start: 11-25-2024 Hepatitis C antibody measurement [facility] Start: 11-25-2024 Rubella IgG measurement [facility] Start: 11-25-2024 Serologic test for syphilis [facility] Start: 11-25-2024 [facility] Start: 08-24-2024 Beta 2 glycoprotein 1 Ab IgA and IgG and IgM panel - Serum [facility] Start: 08-24-2024 Cardiolipin IgG and IgM panel - Serum [facility] Start: 08-24-2024 CBC W Auto Differential panel - Blood [facility] Start: 08-24-2024 Lupus anticoagulant assay [facility] Start: 08-24-2024 Thyroid stimulating hormone measurement [facility] Start: 04-07-2023 Patient referral [facility] Work Phone: Start: 03-31-2023 Iv infusion therapy/prophylaxis /dx 1st to 1 hr THER/PROPH/DIAG IV INF INIT [facility] Start: 01-13-2023 Patient referral [facility] Work Phone: Start: 12-11-2021 Patient referral [facility] Work Phone: Start: 06-17-2021 Patient referral [facility] Work Phone: Beta 2 glycoprotein 1 IgA Ab [Presence] in Serum [facility] Beta 2 glycoprotein 1 IgG Ab [Presence] in Serum [facility] Beta 2 glycoprotein 1 IgM Ab [Presence] in Serum [facility] Cardiolipin IgG Ab [Units/volume] in Serum or Plasma [facility] Cardiolipin IgM Ab [Units/volume] in Serum or Plasma [facility] CBC W Auto Different ial panel - Blood [facility] Erythrocyte mean corpuscular volume determination [facility] Hematocrit [Volume Fraction] of Blood [facility] Hemoglobin [Mass/vol ume] in Blood [facility] Hemoglobin A1c/Hemoglobin.total in Blood [facility] Leukocytes [#/volume ] in Blood [facility] Lupus anticoagulant screening test [facility] Mean corpuscular hem oglobin concentration determination [facility] Mean corpuscular hem oglobin determination [facility] Measurement of respi ratory function [facility] Work Phone: Neisseria gonorrhoea e rRNA [Presence] in Unspecified specimen by DAVE with probe detection [facility] Neutrophil count [facility] Neutrophil percent differential count [facility] Partial thromboplast in time ratio [facility] Patient Education [facility] Work Phone: Patient referral [facility] Work Phone: PCR test for Chlamyd ia trachomatis [facility] Platelets [#/volume] in Blood [facility] Red blood cell count [facility] Red cell distributio n width determination [facility] Streptococcus pyogen es Ag [Presence] in Throat by Rapid immunoassay [facility] Thrombin time [facility] Urine culture [facility] Immunizations Immunization Date Immunization Notes Care Provider Fa cility 10-22-2020 tetanus toxoid, redu ronn diphtheria toxoid, and acellular pertussis vaccine, adsorbed No Primary Care Physician [facility] 10-22-2020 diphtheria, tetanus toxoids and acellular pertussis vaccine, unspecified formulation No Primary Care Physician [facility] Work Phone: 09-05-2017 measles, mumps and rubella virus vaccine No Primary Care Physician [facility] 07-31-2017 tetanus toxoid, redu ronn diphtheria toxoid, and acellular pertussis vaccine, adsorbed No Primary Care Physician [facility] Payers Date Payer Category Payer Self-pay [id number] 2024 Unknown [id number] Medicaid [id number] Unknown [id number] Unknown [id number] Unknown [id number] 2.16.8 40.1.487325.3.579.2.462 Unknown [id number] 2.16.8 40.1.812077.3.579.2.462 Unknown [id number] 2.16.8 40.1.128470.3.579.2.462 Unknown [id number] 2.16.8 40.1.354880.3.579.2.462 Unknown [id number] 2.16.8 40.1.542119.3.579.2.462 Unknown [id number] 2.16.8 40.1.672121.3.579.2.462 Unknown [id number] 2.16.8 40.1.190902.3.579.2.462 Unknown [id number] 2.16.8 40.1.032443.3.579.2.462 Unknown [id number] 2.16.8 40.1.729047.3.579.2.462 Unknown [id number] 2.16.8 40.1.102676.3.579.2.462 Unknown [id number] 2.16.8 40.1.477892.3.579.2.462 Unknown [id number] 2.16.8 40.1.566023.3.579.2.462 Unknown [id number] 2.16.8 40.1.896875.3.579.2.462 Unknown [id number] 2.16.8 40.1.590556.3.579.2.462 Unknown [id number] 2.16.8 40.1.896468.3.579.2.462 Unknown [id number] 2.16.8 40.1.764950.3.579.2.462 Unknown [id number] 2.16.8 40.1.058015.3.579.2.462 Unknown [id number] 2.16.8 40.1.034680.3.579.2.462 Social History Date Type Detail Facility [facility] Work Phone: Start: 05-28-2021 End: 05-28-2023 Tobacco smoking status [facility] Unknown if ever smoked [facility] Start: 09-03-2017 None [facility] Start: 01-04-2018 Cigarettes [facility] Start: 1995 Sex Assigned At Female [facility] Start: 08-24-2024 End: 11-26-2024 Tobacco smoking status NHIS Never smoked tobacco (finding) [facility] Patient currentl y [facility] Medical Equipment Procedure Code Equipment Code Equipment [...] Assessment Result Facility 12-08-2024 Cognitive function [facility] Work Phone: 03-31-2023 Cognitive function Voice/Name [facility] Work Phone: 05-02-2022 Cognitive function Level Of Cons ciousness Appropriate;Drowsy [facility] Work Phone: 07-08-2021 Cognitive function Voice/Name [facility] Work Phone: Clinical Notes 06-03-2023 to 12-07-2024 Note Date & Type Note Facility 12-07-2024 Progress note [facility] 11-29-2024 Progress note [facility] 11-27-2024 Discharge summary [facility] 11-27-2024 Radiology Diagnostic study note [facility] Imaging Services [address] [place] [address] Transvaginal w/Preg US MR#: [id number] Acct: [id number] Name: JANETTE CAMPO AUGUST Rep #: [id number] : 1995 F 29 From: Evin Streeter MD PCP: Dr. Rhina Kulkarni MD Status: REG ER Study:Transvaginal w/Preg US Date of Exam: 11/26/24 Exam# [id number] Ordering Dr: Armida Mueller DO PROCEDURE: TRANSVAGINAL [...] be performed at 19-20 wks. Reading Location: [facility] CC: Dr. Rhina Kulkarni MD; Mariusz Mueller DO ~ Converting Technician: Signed [facility] 11-17-2024 Radiology Diagnostic study note [facility] Imaging Services [address] [place] [address] Transvaginal w/Preg US MR#: [id number] Acct: [id number] Name: JANETTE CAMPO AUGUST Rep #: [id number] : 1995 F 29 From: Jaycob Almanzar MD PCP: Dr. Rhina Kulkarni MD Status: REG CLI Study:Transvaginal w/Preg US Date of Exam: 11/16/24 Exam# [id number] Ordering Dr: Yoon Wilkins CNM PROCEDURE: TRANSVAGINAL [...] and unremarkable. DIMENSIONS: Parameter Measurement / EGA Bird-In-Hand Rump Length: 2 mm/6 weeks and 0 days Gestational Sac: 1.4 cm/6 weeks and 2 days Yolk Sac: 3 mm/ ESTIMATED GESTATIONAL AGE: By Ultrasound: 6 weeks and 1 day ESTIMATED DATE OF DELIVERY: By Ultrasound: July 11, 2025 US/Transvaginal w/Preg US IMPRESSION: Single live intrauterine gestation with a mean gestational age of 6 weeks and 1 day. Reading Location: [id number] CC: WILLIAM Wilkins; Dr. Rhina Kulkarni MD ~ Converting Technician: Signed [facility] 08-30-2024 Radiology Diagnostic study note [facility] Imaging Services [address] [place] [address] Pelvic w/ Transvaginal MR#: [id number] Acct: [id number] Name: JANETTE CAMPO AUGUST Rep #: [id number] : 1995 F 29 From: Lali Delacruz MD PCP: Dr. Rhina Kulkarni MD Status: REG CLI Study:Pelvic w/ Transvaginal Date of Exam: 08/30/24 Exam# [id number] Ordering Dr: Cheryle Melgoza MD PROCEDURE: PELVIC [...] TRANSVAGINAL PELVIC ULTRASOUND WITH DOPPLER. Reading Location: [facility] CC: Dr. Rhina Kulkarni MD; Dr. Cheryle Meza MD ~ Converting Technician: Signed [facility] 08-24-2024 Evaluation note Diagnosis Onset Date Resolution Abnormal uterine bleeding acute August 24, 2024 11:09am Recurrent loss acute August 24, 2024 11:09am [facility] Work Phone: 1(918) 408-536106-18-2025 Evaluation note* Diagnosis Onset Date Resolution Status Admit Date Abnormal uterine bleeding acute August 24, 2024 11:09am Recurrent loss acute August 24, 2024 11:09am Sore throat resolved October 05 8:24am [facility] Work Phone: 1(113) 842-212406-18-2025 Evaluation note* Diagnosis Onset Date Resolution Status Admit Date Abnormal uterine bleeding inactive August 24, 2024 11:09am Recurrent loss inactive August 24, 2024 11:09am Sore throat resolved October 05 8:24am Threatened miscarriage inactive Se ptember 2024 10:17am [facility] Work Phone: 1(268) 286-794406-18-2025 Evaluation note* Diagnosis Onset Date Resolution Status [...] acute December 07, 2024 10:53am acute December 07 10:53am Supervision of high-risk acute December 07 10:53am [facility] Work Phone: 1(723) 785-349006-01-2025 Discharge summary Author Mariusz Mueller [facility] Note Date/Time November 27, 2024 1:51am [facility] Medical Records Department [address] [place] [address] Emergency Department Summary 11/27/24 MR#: [id number] Acct: [id number] Name: JANETTE CAMPO AUGUST Rep #:[id number] : 1995 29 From: Mariusz Mueller DO [...] therefore comes to the hospital for evaluation. [facility] Medical History (Updated 11/27/24 @ 01:42 by [...] 2 current occupational status: employed current occupation: [employer] current occupational exposures/hazards: Yes (Handles sealed [...] 3-4 times per week duration: 15-30 minutes/day christoph/religious: Christianity seatbelt use: always do you feel safe at home: Yes additional social history: : [employer] ROS ROS [...] Therefore there is no need for emergent [facility] [employer] consultation and the patient can follow-up as [...] % (Auto) 58.7 Lymph % (Auto) 31.9 Colbert % (Auto) 7.7 Eos % (Auto) 1.1 Baso % (Auto) 0.3 Absolute Neuts (auto) 5.8 Absolute Lymphs (auto) 3.15 Nucleated RBC % 0 Sodium 135 Potassium 3.9 Chloride 102 Carbon Dioxide 21.8 Anion Gap 11 BUN 13 Creatinine 0.88 Estim Creat Clear Calc 107.33 Est GFR (MDRD) Non-Af 91 BUN/Creatinine Ratio 15.1 Glucose 92 Calcium 9.4 HCG, Quant 19013 H Radiography Diagnostic Testing: Clinical Impression(s) from Imaging Studies Obstetrics Ultrasound 11/26/24 22:26 IMPRESSION: Live intrauterine with a gestational age of 7 weeks 4 days. The estimated sonographic delivery date is: 07/11/2025. Complete anatomical assessment should be performed at 19-20 wks. Reading Location: [facility] Discharge Plan Triage Chief Complaint: Vag [...] Activity Restrictions/Additional Instructions: Please follow-up with your [employer] for repeat evaluation but the ultrasound showed the baby to still be within the uterus with normal heartbeat and your hCGvalue was 53,693. Return to the ER should you have any further concerns or worsening of symptoms Print Language: Tuvaluan Disposition Disposition: Home, Self Care Discharge Date/Time: 11/27/24 01:51 What to do if you have Problems For any increased pain, shortness of breath, bleeding, nausea or vomiting, chestpain, or any unexpected problems, contact your Primary Care Provider. Call [facility] ([phone]) or report to the closest Emergency Room. Call 911 if necessary. 11/27/24 0158 <Electronically signed by Mariusz Mueller DO> Cosigner Signature (if applicable): CC: Dr. Rhina Kulkarni MD ~ Signed [facility] Work Phone: 1(536) 866-907603-27-2024 Discharge summary Author Sriram Esqueda [facility] June 03, 2023 11:49am Note Date/Time June 03, 2023 11: 49am [facility] Physical Therapy [facility] [address] [place] [address] / REHABILITATION SERVICES DISCHARGE SUMMARY MR#: [id number] Acct: [id number] Name: JANETTE CAMPO Rep #: [id number] : 1995 28 From: Sriram Esqueda DPT, OCS, CSCS Referring Dr.: Dr. Rhina Kulkarni MD Status: REG RCR Insurance: [employer] FOR ME [facility] Discharge Summary D/C summary: It has been [...] please feel free to call me at [phone]. Thank you for the referral of thispatient. Sincerely, Sriram Esqueda DPT, OCS, CSCS Balance/Gait/Functional tests Balance/Special Test Scores Functional Gait Assessment Score: 29 % Disability: 3.3400 Oswestry Neck Score: 2 Improvement % Improvement: 98 <Electronically signed by Sriram Esqueda DPT, OCS, CSCS> 06/03/23 1149 CC: Dr. Rhina Kulkarni MD ~ EBG Signed [facility] Work Phone: evaluation note* Diagnosis Onset Date Resolution Status Infection of obstetric surgi florin wound, superficial incisional site acute Dizziness acute Headache acute exam acute [facility] Work Phone: Evaluation note* Diagnosis Onset Date Resolution Status exam acute Asthma acute Depression acute GI bleeding acute Iron deficiency anemia acute Obesity acute Anemia resolved [facility] Work Phone: Evaluation note* Diagnosis Onset Date Resolution Status Asthma acute Depression acute GI bleeding acute Iron deficiency anemia acute Obesity acute Anemia resolved [facility] Work Phone: Evaluation note* Diagnosis Onset Date Resolution Status Irritable bowel syndrome with diarrhea chronic Acute asthma exacerbation no neactive Iron deficiency anemia acute URI (upper respiratory infection) noneactive Vitamin deficiency noneactiv e Acute asthma exacerbation no neactive [facility] Work Phone: Evaluation note* Diagnosis Onset Date Resolution Status Irritable bowel syndrome with diarrhea chronic Acute asthma exacerbation no neactive Iron deficiency anemia acute URI (upper respiratory infection) noneactive Vitamin deficiency noneactiv e Acute asthma exacerbation no neactive Asthma acute Post-viral cough syndrome no neactive Asthma acute GERD (gastroesophageal reflux disease) acute Obesity acute [facility] Work Phone: Evaluation note* Diagnosis Onset Date Resolution Status Acute sinusitis resolved Iron deficiency anemia acute Immunization declined noneac tive Establishing care with new doctor, encounter for noneactive Mild intermittent asthma in adult without complication noneactive Moderate anxiety noneactive Morbid obesity with BMI of 40.0-44.9, adult noneactive Elevated cholesterol with elevated triglycerides noneactive Vitamin D deficiency noneact daphne [facility] Work Phone: Evaluation note* Diagnosis Onset Date [...] obesity with BMI of 40.0-44.9, adult noneactive [facility] Work Phone: Evaluation note* Diagnosis Onset Date [...] noneactive Head injury noneactive Neck pain noneactive [facility] Work Phone: Evaluation note* Diagnosis Onset Date Resolution Status Iron deficiency anemia acute Mild intermittent asthma in adult without complication noneactive Moderate anxiety noneactive Morbid obesity with BMI of 40.0-44.9, adult noneactive Concussion noneactive Head injury noneactive Neck pain noneactive Influenza due to influenza virus, type B acute Sinobronchitis chronic [facility] Work Phone: Evaluation noteNo assessment information available [facility] Work Phone: Hospital Discharge instructionsAdditional Instructions Please follow-up with your [facility] [employer] [facility] for repeat evaluation but the ultrasound showed the baby to still be within the uterus with normal heartbeat and your hCG value was 53,693. Return to the ER should you have any further concerns or [facility] of [facility] Work Phone: Progress note Author Yoon Wilkins [facility] Note Date/Time November 29, 2024 10:45am [facility] H [facility] [address] [place] [address], [address] [place] [address] OFFICE VISIT Date of Service: 11/29/24 MR#: [id number] Acct: [id number] Name: JANETTE CAMPO AUGUST Rep #: [id number] : 1995 Provider: WILLIAM Wilkins Age/Sex: 29/F Location[facility] Status: Signed Intake Vital Signs 11/26/24 22:09 11/29/24 10:20 Height 5 ft 5 ft Weight: 245 lb 5 oz BMI 47.9 BP 122/79 H Intake Visit Reasons: OB ER f/u per SM (NOB 12/07)* 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 Celeste Jonah 08/07/24 4 spontaneous [...] Cosigner Signature: Date (if applicable) CC: ~ [facility] Work Phone: Progress note Author Josseline Bucio [facility] Note Date/Time December 07, 2024 11 :33am [facility]'[address], [address] [place] [address] OFFICE VISIT Date of Service: 12/07/24 MR#: [id number] Acct: [id number] Name: JANETTE CAMPO AUGUST Rep #: [id number] : 1995 Provider: Dr. Zhane Celeste DO Age/Sex: 29/F Location: 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 surgery, Operations/hospitalizations, Anesthetic complications, History of abnormal [...] Ultrasound and Screening for Aneuploidy; Discussed ROS Const Reports system reviewed and no additional complaints, [...] comfortable and no acute distress Orientation: alert [facility] Head: normal to inspection, normocephalic and atraumatic [...] fallen in the past year?: No 12/07/24 4111 <Electronically signed by Josseline Aragon DO> Date _ Josseline Celeste DO Cosigner Signature: Date (if applicable) CC: ~ [facility] Work Phone: Reason for referral (narrative)No reason for referral information availablePut In Bay Medical Services Work Phone: Summary Purpose Family History No Family History Records Found Relationship Condition Age at Onset Recorded Date/T norma father Epilepsy Unknown Migraine headache Unknown mother Arthritis Unknown Anxiety Unknown sister Anxiety Unknown Advance Directives No Advanced Directives Records Found Advance Directive Response Recorded Date/ Time Advance Directives No December 24, 2020 12:07pm Living Will No May 28, 2021 5:18am Power of Family Dinner Service Specialist No May 28 5:18am Advance Directive Response Recorded Date/ Time Advance Directives No December 24, 2020 12:07pm Living Will No July 05, 2021 2:47pm Power of Family Dinner Service Specialist No July 05 2:47pm Advance Directive Response Recorded Date/ Time Advance Directives No November 2:33pm Living Will No November 19, 2021 2:33pm Power of Family Dinner Service Specialist No November 2:33pm Advance Directive Response Recorded Date/ Time Advance Directives No November 1:33pm Living Will No November 19, 2021 1:33pm Power of Family Dinner Service Specialist No November 1:33pm Advance Directive Response Recorded Date/ Time Advance Directives No August 22 12:25pm Advance Directive Response Recorded Date/ Time Advance Directives No August 22 12:25pm Do you have a Healthcare Power of Family Dinner Service Specialist? 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, NPP SENT Reason for Visit [...] bleeding fu *$ August 24, 2024 11:09am Reason for Visit Admit Date Abnormal uterine bleeding August 24 11:09am Recurrent loss August 24, 2024 11:09am Chief Complaint Admit Date LMP 5, early bleeding fu *$ August 24, 2024 [...] Threatened miscarriage November 29, 2 025 10:17am Chief Complaint Admit Date LMP [...] section and content) DATE CREATED AUTHOR 09/14/2020 [facility] DATE CREATED AUTHOR AUTHOR'S ORGANIZ ATION 01/14/2025 [facility] [place] (unrecognized section and content) Type Care [...] Inactive Member Role Status Dates Tonny Costa BROADCAST OPERATIONS ENGINEER, BROADCAST OPERATIONS ENGINEER-C Primary Care Provider, Referring P jagdeep Active Dr. Rhina Kulkarni MD Attending Provider Active Team Status: Inactive Member Role Status Dates Tonny Costa BROADCAST OPERATIONS ENGINEER, BROADCAST OPERATIONS ENGINEER-C Primary Care Provider, Referring P rovider Active Andrew Cummings PA, PA Attending Provider Active Team Status: Inactive Member Role Status Dates Dr. Rhina Kulkarni MD Primary Care Pro vider, Attending Provider, Referring Provider Active Team Status: Inactive Member Role Status Dates Tonny Costa BROADCAST OPERATIONS ENGINEER, BROADCAST OPERATIONS ENGINEER-C Referring Provider Active Dr. Rhina Kulkarni MD [...] Care Provider, Referri ng Provider Active Andrew LEOS PA Attending Provider Active Team Status: Inactive Member Role Status Dates Dr. Rhina Kulkarni MD Primary Care Provider, Referri ng Provider Active Nicholas LEOS, PA Attending Provider Active Team Status: Active Member Role Status Dates Dr. Rhina Kulkrani MD Primary Care Provider Active Start: August [...] Active Start: November 02, 2024 Dr. Cheryle eMza MD Attending Provider Active Start: November 02, [...] BE BASED ON THE PRIMARY CLINICAL RECORDS. [employer] provides no warranty or guarantee of the accuracy or completeness of information in this document.
== END | disposition home or self-care (01) ==
PROVIDERS: PCP Internal Medicine; Referring Provider Obstetrics & Gynecology; Visit Provider Obstetrics & Gynecology
DX: O09.90 Supervision of high risk pregnancy, unspecified, unspecified trimester (principal); Z3A.00 Weeks of gestation of pregnancy not specified
CPT/HCPCS: 76805; 76817